=== PATIENT | female | born 1960 | race Caucasian/White ===

== ENCOUNTER 2018-02-02 08:30 | Outpatient (RCR) | payer MEDICARE, MEDICAID, SELFPAY ==
--- NOTE | 2018-01-24 12:22 | IE_ITS ---
Date: January 24, 2018 Referring: SARAH Zuñiga M.D. Diagnosis: generalized aches and pains (hips and legs) SUBJECTIVE: History of Present Illness: Shraddha is a 57 year old female referred for an evaluation and treatment planning with a diagnosis of hip and leg pain with general aches. She reports having chronic LBP beginning approximately one year ago. She had injections at [facility] the end of December resulting in increasing and LBP with spams through her legs. Per her comments, she states that the injections made her symptoms worse. She was put on Gabapentin to take 2x per day, but she does not feel this has benefitted her. She follows up at [facility] on January 27. Denies having had any recent diagnostics. 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 With regards to her back, she locates the pain to be in the L5/S1 region with radiation into the glute and sacral region. Complains of spasming in the left LE worse than the right. This is throughout the thigh into the toes. She describes this pain as a grabbing, spasm type sensation located in the legs with aching in the low back. Symptoms are best with walking and worse with sitting and static standing. She does ice for symptom reduction/control. Reports episodic buckling in the right knee, but no fall. Current Level of Function: Difficulty with any sitting or standing for more than 15 minutes. Pain with bed transfers and sit to stand transfers. Previous Treatment: [facility]. Underwent L5/S1 facet joint injection via fluoroscopy for epidural steroid. Social: Lives in a 2nd story apartment with elevator access. Once in her apartment she is all on one level. She is disabled. Comorbidities: Ovarian cancer in 1999 with a full hysterectomy, breast cancer in 2009 with a lumpectomy on the right, left TKR in 2006, right TKR in 2008 Falls in the last year: ____ No __x__Yes - How many? __[1]__ - (if over 2, balance SM needs to be completed) Medications: Gabapentin, Vitamin D, Tylenol and Advil for pain with minimal benefit noted. Quality of Life: __x__ Good Standardized Measures: LEFS score: __64%__ OBJECTIVE: Posture: The patient is an obese female with no scoliosis detected. She has adequate lordosis. Mild increase in tone, right glute greater than left. The patient tends to weigher packing a forwardly flexed posture in relaxed stance. Gait: Guarded with decreased stride length and decreased heel strike at initial contact, bilateral LEs. Palpation: Pain elicited with palpation with PA mobs L3 through L5 as well as with sacral decompression. Pain with palpation of bilateral glute medius and right piriformis greater than left. ROM: Lumbar spine AROM into flexion, 12 fingertips to floor with difficulty resuming an upright standing posture, walking her hands up her legs. Extension 10 with pain. Rotation right 50 with complaints of spasming in the left thoracolumbar spine; left 65 with reports of pain in the right thoracolumbar spine. Side bending right 2 1/2 fingertips to lateral knee joint line compared to 1 1/2 left. Hip ROM into internal rotation bilaterally is WNL, external rotation 30 A and 40 AA. Strength: Difficult to assess secondary to pain behaviors. Complains of intensifying pain with resisted hip strength testing for abduction, extension and flexion. Gross strength of the LE is 4/5. She performs a SLR with a 0 lag bilaterally. Hamstrings 4/5. Is able to heel and toe walk. Neuro: Sensation is reportedly intact to light touch throughout bilateral LEs. DTRs are hypo reflexive for bilateral knee jerk and ankle jerk. Myotomes are congruent bilaterally and WFL. Special Tests: (-) dural tension testing with SLR or slump tests. Mildly (+) quadrant compression testing, left greater than right. (-) brenda testing. (- ) scour signs. Treatment: IE: 77255 x1 Therapeutic procedure: 60010 x1 Unattended estim: 77450 x1 Patient Education: HEP consisting of gentle lumbar ROM, single knee to chest, bent knee fall outs, prone on elbows as well as posterior hip stretching. Ended with estim and cryotherapy to the low back while seated x15 minutes. Direct treatment time: 1 hr. from 9:30 til 10:30 A.M. ASSESSMENT: Patient is a 57-year-old female, referred for PT services with the diagnosis of generalized aches and pain in the hips and legs. 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 Examination: (list): See above for functional limitations and impairments. Presentation: Stable and uncomplicated Decision-Making: Low complexity ____ Patient requires skilled PT intervention to remediate the above functional limitations to return to: __x__ Return to full functional mobility Prognosis: __x__ Good __x__ Fair Patient's symptoms are chronic at this stage. Her rate of recovery will be contingent upon her compliancy with her HEP, which I predict to be fair. G-Codes (fill in modifier after appropriate code): Patient's primary functional limitation is in the category of: __[x]__ Changing and maintaining body position: [id number]-[CL] Projected goal: __[x]__ Changing and maintaining body position: [id number]-[CJ] based on the LEFS score STG: __6__ weeks. 1) decrease pain by 25% 2) patient independent in HEP 3) patient able to perform full, active lumbar ROM without pain 4) improve standing and sitting tolerance to greater than or equal to 30 minutes without limitations due to pain LTG: __12__ weeks. 1) patient perform all functional mobility and bed transfers without limitations due to pain 2) decrease symptoms by 75% 3) return to full, painfree functional mobility PLAN: Patient to be seen 2x per week, for 12 weeks, adjusting frequency of visits per patient symptoms and response to treatment. Treatment to include: Manual therapy - 75295 - soft tissue mobs throughout the lumbar paraspinals and glute musculature Therapeutic exercise - 67825 - focus on core stabilization Will also implement general ROM exercises into flexion and extension as tolerable. Will utilize manual therapy skills for stretching of the LEs, particularly the posterior hip, bent knee fall outs and trial of manual distractions via leg pulls as well as continued use of estim w/cryotherapy for pain control. The patient agrees with my POC, and is to be discharged when the above goals have been met. Thank you for this referral. Please do not hesitate to contact me with any questions or concerns regarding this patient's plan of care. Please sign, date and return to our clinic with your approval.................................. cc: SARAH Zuñiga
--- NOTE | 2018-01-28 08:53 | NT_ITS ---
Shraddha Hopefaviantommie shows up at [facility] this morning stating she just does not feel right. She decided to cancel her appointment. [employer]
--- NOTE | 2018-01-31 08:30 | PTTR_ITS ---
DATE: 01/31/18 SUBJECTIVE: Shraddha states that she saw Dr. Rodriguez at the pain clinic and discussed some internal tens unit procedure. She is being referred to the spine clinic at [place] in mid February. Continues to complain of L sided low back, SI, buttock and back pain. OBJECTIVE: Seen for re-view of HEP. Manual therapy: (39247m1). Manual distraction via leg pulls on L followed by PA mobilizations grade 3 to L2 to L5-S1, rotational mobilizations segmentally both L and R. The received soft tissue mobilization by Niharika Wright PTA ( see her note for specifics) Therapeutic procedures (92446p4). Bent knee fall out, single knee to chest, prone on elbows and TA activation which she was able to elicit, but not able to hold for more than 15-20 seconds. Direct treatment time: 30 mins Total treatment time: 30 mins A: patient tolerated manual therapy well. Do question some SI involvement, mildly limited with her IR on L when tested in prone compared to the R. P:Continue as above, further screen SI joint next visit. MM/dl
--- NOTE | 2018-01-31 11:32 | PTTR_ITS ---
DATE: 01/31/18 Co treatment with Andrea Avendaño DPT: OBJECTIVE: Manual therapy: (66189w5). STM t/o low back and buttock with focus on the left. PRT's of glut medius and piriformis. CFM over left sacral border and pelvic brim. Myofascial stretching t /o entire pelvic brim region. * x Electrical Stim Unattended - 97711m9: ended with IFC and cryo to left SI region x 15 min. Direct treatment time: 20 min Total treatment time: 35 min
--- NOTE | 2018-02-02 08:30 | PTTR_ITS ---
DATE: SUBJECTIVE: Shraddha states that she feels as though the soft tissue mobilization helped last visit. Is having mild reduction in intensity of pain since last visit. Is noticing improvements with sit to stand transfer. Is second guessing the internal tens implants. Manual therapy: (67243p2). Lumbopelvic mobilization consisting of single/ double knee to chest, bent knee fall outs, manual distraction via leg pulls followed by piriformis stretching bilaterally. Then incorporated some PA mobilizations to lumbar spine grade 3 followed by sacral decompression. She then received soft tissue mobilization by Niharika Wright PTA (see her note for specifics) Direct treatment time: 30 mins Total treatment time: 30 mins P: Continue as above and implement some core stabilization next visit. MM/dl
--- NOTE | 2018-02-02 13:34 | PTTR_ITS ---
DATE: 02/02/18 Co treatment with Andrea Avendaño DPT: OBJECTIVE: Manual therapy: (94905d5). STM t/o low back and buttock area with focus on the left. PRT's of glut medius and piriformis as well as left iliocostalis lumborum. CFM over lumbar spine, pelvic brim and bilateral sacral borders. * x Electrical Stim Unattended - 20671d1: ended with IFC and cryo to left sided low back x 15 min. Direct treatment time: 20 min Total treatment time: 35 min
== END 2018-02-04 23:59 | disposition home or self-care (01) ==
LOC: PT 08:30
PROVIDERS: PCP Nurse Practitioner Family; Referring Provider Nurse Practitioner Family; Visit Provider Nurse Practitioner Family
DX: M25.551 Pain in right hip (principal); M25.552 Pain in left hip; M79.651 Pain in right thigh; M79.652 Pain in left thigh; M51.36 Other intervertebral disc degeneration, lumbar region
CPT/HCPCS: 97014; 97110; 97140; 97161

== ENCOUNTER 2018-02-14 15:26 | Outpatient (REF) | payer MEDICARE, MEDICAID, SELFPAY ==
[2018-02-14 19:36] LABS: ALT 33 U/L (12-78); AST 28 U/L (15-37); Albumin 3.4 g/dL (3.4-5.0); Alkaline Phosphatase 62 U/L (46-116); Anion Gap 10.5 mmol/L (3-11); BUN 14 mg/dL (7-18); Bilirubin, Total 0.3 mg/dL (0.2-1.0); CO2 26.5 mmol/L (21.0-32.0); CREATININE 0.98 mg/dL (0.55-1.02); Calcium 8.7 mg/dL (8.5-10.1); Chloride 105 mmol/L (98-107); Estimated GFR 58.09 (mL/min/1.73m2); Glucose 90 mg/dL (70-100); Magnesium 1.9 mg/dL (1.8-2.4); Potassium 4.1 mmol/L (3.5-5.1); Sodium 142 mmol/L (136-145); Total Protein 6.5 g/dL (6.4-8.2)
== END 2018-02-14 15:46 ==
LOC: NCHCN 15:26
PROVIDERS: PCP Nurse Practitioner Family; Visit Provider Nurse Practitioner Family
DX: R52 Pain, unspecified (principal); M62.838 Other muscle spasm
CPT/HCPCS: 80053; 83735

== ENCOUNTER 2018-02-22 00:33 | Outpatient (CLI) | payer MEDICARE, MEDICAID, SELFPAY ==
--- NOTE | 2018-02-22 08:50 | DI.MRI_ITS ---
SYMPTOM/DIAGNOSIS: PAIN L5 LT RADICULAR, M54.16, RADICULOPATHY LUMBAR SPINE MRI: The study was conducted according to the usual protocol. Sagittal T 1 and T 2 and sagittal T 1 STIR and axial T 1 and axial T 2 and axial T 2 MSMA and T 1 coronal pulse sequences were performed. The examination is compared with a prior study of 07/13/15. The bony signal is unremarkable. At T 12-L 1, the disc is normal. There is no spinal stenosis. At L 1-2, the disc is normal. There is no evidence of spinal stenosis. At L 2-3, diminished disc signal would be consistent with desiccation. There is mild retrolisthesis and an annular disc bulge. There is mild foraminal narrowing bilaterally, left greater than right, unchanged. At L 3-4, there is disc desiccation and a mild disc bulge. Facet joint arthropathy is identified. There is mild canal stenosis. There is no evidence of significant foraminal stenosis. At L 4-5, a pseudospondylolisthesis is demonstrated. There is diminished disc signal and mild loss of disc height. Facet joint arthropathy is identified. There is mild left and mild to moderate right foraminal stenosis without appreciable interval change when compared with the prior examination. At L 5-S 1, again noted is a mild central disc protrusion. There is severe left neural foraminal narrowing and mild right foraminal narrowing, unchanged. Severe facet joint DJD is again identified. SUMMARY: There has been little interval change in the status of the lumbar spine with note again made of degenerative disc disease and DJD. There is severe left sided L 5-S 1 foraminal narrowing, not significantly changed when compared with the prior examination.
== END 2018-02-22 00:53 ==
PROVIDERS: PCP Nurse Practitioner Family; Visit Provider Anesthesiology Pain Medicine
DX: M51.17 Intervertebral disc disorders with radiculopathy, lumbosacral region (principal); M54.16 Radiculopathy, lumbar region
CPT/HCPCS: 72148

== ENCOUNTER 2018-04-01 08:09 | Emergency (ER) | payer MEDICARE, MEDICAID, SELFPAY ==
[2018-04-01 08:14] VITALS: BP 140/83; PULSE 70; RESP 18; TEMP 36.5; O2SAT 97
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
[2018-04-01] MEDS: Ondansetron O.D.T. 4 MG TABEF PO (09:14)
[2018-04-01 09:28] VITALS: BP 135/63; PULSE 84; RESP 16; TEMP 36.5; O2SAT 97
== END 2018-04-01 09:34 | disposition home or self-care (01) ==
PROVIDERS: Emergency Provider Emergency Medicine; PCP Nurse Practitioner Family
DX: R11.2 Nausea with vomiting, unspecified (principal); R19.7 Diarrhea, unspecified; T36.4X5A Adverse effect of tetracyclines, initial encounter
CPT/HCPCS: 80048; 99283; 85025; J1885; J2405

== ENCOUNTER 2018-05-29 11:50 | Emergency (ER) | payer MEDICARE, MEDICAID, SELFPAY ==
[2018-05-29 11:55] VITALS: BP 144/79; PULSE 85; RESP 14; TEMP 36.5; O2SAT 96
--- NOTE | 2018-05-29 12:31 | W.ED.GENAD ---
Discharge Plan Disposition Patient Disposition: HOME Condition: Good Discharge Details Chief Complaint: RashLesion Clinical Impression: Rash and nonspecific skin eruption Primary Care Provider: Noris Tuttle ED Provider: Jaswinder Sesay Home Meds and New Rx's Prescriptions: No Action ProAir HFA 8.5 GM HFA aerosol inhaler 2 puff Inhalation ONCE PRNRF: 0 tamoxifen 20 MG tablet 20 mg PO DAILY RF: 0 Dexilant 60 MG capsule,biphase delayed releas 60 mg PO DAILY RF: 0 magnesium oxide 400 MG tablet 400 mg PO DAILY RF: 0 Cholecalciferol (Vitamin D3) [Vitamin D3] 2,000 UNIT Tab.Chew 2,000 unit PO DAILY RF: 0 ondansetron 4 MG tablet,disintegrating 4 mg Sublingual Q6H PRNQty: 12 RF: 0 fexofenadine 180 MG tablet 180 mg PO DAILY RF: 0 vitamin B complex 1 EACH capsule 1 ea PO DAILY RF: 0 Discharge Instructions Instructions: Acute Rash (ED) Additional Instructions: Please apply the triple antibiotic ointment to your foot as directed. Please keep the area bandaged if you notice any worsening of your symptoms, or any new symptoms such as spreading of the redness, vomiting, diarrhea, fever, chills, shortness of breath, chest pain, numbness, weakness, or fainting , please return immediately to the emergency department for reevaluation. Please follow up with your primary care provider as soon as possible for reassessment and reevaluation. As always, it was a pleasure participating in your medical care today. Referrals: Noris Tuttle [Primary Care Provider] - Medical Decision Making This is a pleasant 58-year-old female who presents with evaluation for rash over her arch of her right foot. He has been present for the last week. Therefore blisters all at various stages. Physical exam did show a small amount of purulence underneath 1 of the blisters. It was D removed, and these were sent for culture. No evidence of surrounding redness, erythema, or fluctuance from an abscess on bedside ultrasound. Physical exam shows no other abnormalities. Findings may represent a very mild viral exanthem, shingles on the differential but unlikely secondary to the location, distribution, various stages, and atypical appearance. I imagine her symptoms came from some type of contact dermatitis. With no signs of systemic symptoms, no other spreading of the rash, no red flags of redness, erythema, fever or chills, negative Nikolsky sign no other significant abnormalities I feel she can be safely discharged home. We will send the fluid for culture. With no evidence of cellulitis or abscess I do not think that oral antibiotics are indicated. Will recommend continue application of triple antibiotic ointment and bandaging, and close follow-up with PCP. We discussed red flags which return the patient understands. I have extensively reviewed the treatment plan and discharge instructions with the patient. I have addressed all patient concerns at this time. The patient was made aware of what symptoms to monitor for that would warrant a return to the emergency department. Discussed the plan with the patient, they demonstrate verbal understanding and agreement with our assessment and plan at this time. HPI General Date/Time Provider Initiated Documentation: 05/29/18 12:00. HPI Narrative: This is a 58-year-old female with no significant past medical history who presents today for evaluation of rash on the right foot. Patient states that for the last week she has had noted small blisters on the arch of her right foot. They have come in various stages, will then rupture, and exuded a small amount of purulent material. There is some that are well-healing, and some that are just starting up. Therefore blisters in total. They are very small, they have associated itchiness. No associated redness, pain or swelling. She denies any pain in the foot with movement. She denies any systemic symptoms of fever or chills. She denies any recent exposures to animals oils dander or plans. Past medical history is positive for breast cancer. No other complaints at this time. No history of IV or illicit drug use. No modifying or relieving factors. She has been wiping alcohol on them nightly, this is not changed much Related Data Home Medications Medication Instructions Recorded Confirmed tamoxifen 20 mg PO DAILY 12/02/12 05/29/18 Dexilant 60 mg PO DAILY 09/06/13 05/29/18 magnesium oxide 400 mg PO DAILY 03/12/17 05/29/18 Cholecalciferol (Vitamin D3) 2,000 unit PO DAILY 07/24/17 05/29/18 [Vitamin D3] ondansetron 4 mg SUBLINGUAL Q6H PRN #12 tabef 08/13/17 05/29/18 fexofenadine 180 mg PO DAILY 08/28/17 05/29/18 vitamin B complex 1 ea PO DAILY 08/28/17 05/29/18 ProAir HFA 2 puff INHALATION ONCE PRN inhaler 11/19/17 05/29/18 Previous Rx's Medication Instructions Recorded ondansetron 4 mg SUBLINGUAL Q6H PRN #12 tabef 08/13/17 Allergies Allergy/AdvReac Type Severity Reaction Status Date / Time lidocaine Allergy Severe Anaphylaxsi Unverified 05/29/18 11:58 s Sulfa (Sulfonamide Allergy Intermediate Skin Rash Unverified 05/29/18 11:58 Antibiotics) latex Allergy Mild Hives Unverified 05/29/18 11:58 influenza virus vaccine, Allergy Unknown Unverified 05/29/18 11:58 specific [Influenza Virus Vacc,Specific] NSAIDS (Non-Steroidal Allergy Unknown Skin Rash Unverified 05/29/18 11:58 Anti-Inflamma cat dander Allergy Unverified 05/29/18 11:58 dog dander Allergy Unverified 05/29/18 11:58 codeine AdvReac Unverified 05/29/18 11:58 etodolac AdvReac Unverified 05/29/18 11:58 meloxicam AdvReac Unverified 05/29/18 11:58 morphine AdvReac Unverified 05/29/18 11:58 promethazine HCl AdvReac Unverified 05/29/18 11:58 [From Phenergan] tramadol AdvReac Unverified 05/29/18 11:58 General Stated Complaint: RashLesion NYA: 5 Review of Systems Review of Systems All systems reviewed & are unremarkable except as noted in HPI and below PFSH Social History Smoking/Tobacco Use Status: Current every day Exam Narrative Exam Narrative: 1.Const: Well-nourished, Well-developed, appearing stated age 2.Eyes: PERRL, no conjunctival injection, and symmetrical lids. 3.ENT: Atraumatic external nose and ears. Moist MM. Neck: Symmetric, trachea midline, No thyromegaly. 4.CVS: +S1/S2, No murmurs or gallops. Peripheral pulses 2+ and equal in all extremities. Brisk capillary refill in all extremities. 5.RESP: Unlabored respiratory effort. Clear to auscultation bilaterally. No wheezes rales or rhonchi 6.GI: Soft, Nontender/Nondistended, No hepatosplenomegaly. No guarding or rebound. 7.MSK: Normocephalic/Atraumatic, Extremities w/o deformity or ttp No cyanosis or clubbing, Normal movement of all extremities 8.Skin: Warm, Dry. 4 small vesicles in various stages on the bottom of her foot by the arch. Bedside ultrasound shows no fluctuance or signs of abscess. One vesicle is a small amount of purulent fluid inside. This was lysed, and a small amount was exuded. No surrounding erythema. Vesicles are roughly 3 mm in diameter. No evidence of significant pain, negative Nikolsky sign. No other lesions are present. 9.Neuro: implementation engineer II-XII grossly intact. Sensation grossly intact, no focal neurologic deficits. 10.Psych: (AAO) x3. Appropriate mood and affect Course Vital Signs Temperature 36.5 C 05/29/18 11:55 Pulse 85 05/29/18 11:55 Respiratory Rate 14 05/29/18 11:55 Blood Pressure 144/79 H 05/29/18 11:55 Pulse Oximetry 96 05/29/18 11:55 Temperature 36.5 C 05/29/18 11:55 Temperature Source Temporal Artery Scan 05/29/18 11:55 Pulse 85 05/29/18 11:55 Respiratory Rate 14 05/29/18 11:55 Respiratory Effort Non-Labored 05/29/18 11:57 Blood Pressure 144/79 H 05/29/18 11:55 Blood Pressure Position Sitting 05/29/18 11:55 Pulse Oximetry 96 05/29/18 11:55 Pain Level 2 05/29/18 11:55
== END 2018-05-29 12:37 | disposition home or self-care (01) ==
PROVIDERS: Emergency Provider Student in an Organized Health Care Education/Training Program; PCP Nurse Practitioner Family
DX: S90.821A Blister (nonthermal), right foot, initial encounter (principal); X58.XXXA Exposure to other specified factors, initial encounter
CPT/HCPCS: 10160; 87070; 87205

== ENCOUNTER 2018-07-08 00:19 | Outpatient (CLI) | payer MEDICARE, MEDICAID, SELFPAY ==
--- NOTE | 2018-07-08 09:47 | DI.MRI_ITS ---
SYMPTOM/DIAGNOSIS: PREOP SPINAL CORD STIMULATOR, LT LUMBAR RADICUITIS M54.16 THORACIC SPINE MRI: 07/08/18 MRI examination of the thoracic spine was performed according to the usual protocol. No significant bony signal abnormality seen. Note is made of an apparent disc herniation at the T 8-9 level which projects centrally and to the left of midline and causes mild deformity of the anterior cord surface on the left at this level. No intra cord signal abnormality seen. No disc herniation identified elsewhere. The bony spinal canal and neural foramina appear intact. 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 Please correlate clinically.
== END 2018-07-08 00:39 ==
PROVIDERS: PCP Nurse Practitioner Family; Visit Provider Anesthesiology Pain Medicine
DX: M54.16 Radiculopathy, lumbar region (principal); M51.14 Intervertebral disc disorders with radiculopathy, thoracic region
CPT/HCPCS: 72146

== ENCOUNTER 2018-07-25 13:02 | Outpatient (REF) | payer MEDICARE, MEDICAID, SELFPAY ==
[2018-07-25 13:36] LABS: ALT 47 U/L (12-78); AST 38 U/L (15-37); Albumin 3.6 g/dL (3.4-5.0); Alkaline Phosphatase 63 U/L (46-116); Anion Gap 10.4 mmol/L (3-11); BUN 15 mg/dL (7-18); Bilirubin, Total 0.4 mg/dL (0.2-1.0); CO2 27.6 mmol/L (21.0-32.0); CREATININE 1.02 mg/dL (0.55-1.02); Calcium 8.8 mg/dL (8.5-10.1); Chloride 100 mmol/L (98-107); Cholesterol 186 mg/dL (50-200); Estimated GFR 55.47 (mL/min/1.73m2); Glucose 87 mg/dL (70-100); HDL Cholesterol 37 mg/dL (40-60); LDL CHOLESTEROL 121 mg/dL (<100); Potassium 3.9 mmol/L (3.5-5.1); Sodium 138 mmol/L (136-145); Total Protein 7.1 g/dL (6.4-8.2); Triglyceride 157 mg/dL (30-150)
== END 2018-07-25 13:22 ==
LOC: NCHCN 13:02
PROVIDERS: PCP Nurse Practitioner Family; Visit Provider Nurse Practitioner Family
DX: Z13.6 Encounter for screening for cardiovascular disorders (principal); E78.89 Other lipoprotein metabolism disorders
CPT/HCPCS: 80053; 80061; 83721

== ENCOUNTER 2018-08-10 08:41 | Outpatient (CLI) | payer MEDICARE, MEDICAID, SELFPAY ==
[2018-08-10 09:18] LABS: CREATININE 0.98 mg/dL (0.55-1.02); Estimated GFR 58.09 (mL/min/1.73m2)
== END 2018-08-10 09:01 ==
PROVIDERS: PCP Nurse Practitioner Family; Visit Provider Nurse Practitioner
DX: Q27.30 Arteriovenous malformation, site unspecified (principal)
CPT/HCPCS: 36415; 82565

== ENCOUNTER 2018-08-12 00:30 | Outpatient (CLI) | payer MEDICARE, MEDICAID, SELFPAY ==
[2018-08-12] MEDS: Gadoterate meglumine 20 ML VIAL 19 ML IVP (09:36)
--- NOTE | 2018-08-12 09:45 | DI.MRI_ITS ---
SYMPTOMS/DIAGNOSIS: PT WITH AVM, TREATED WITH RADIATION THERAPY, ASSESS FOR PROGRESSION, Q27.30 MRI OF THE BRAIN: Pre and post contrast MRI of the brain was performed. Comparison examination 11/17/16 and 11/17/17. There has been no change in size or appearance of the enhancing lesion in the medial aspect of the left temporal lobe. This has been stable compared to the prior examinations. No new abnormal areas of enhancement are seen. There are areas of hyperintensity in the white on the T 2 and FLAIR images involving the medial left temporal lobe, floor of the left frontal lobe and the left insula. These areas are unchanged compared to the prior examination. The diffusion weighted images show no evidence of an acute infarct. No acute midline shift or mass effect is identified. There is mucosal thickening in the left maxillary sinus. No fluid levels are seen. IMPRESSION: Stable areas of enhancement and white matter hyperintensity involving the left frontal and temporal lobes as described above.
== END 2018-08-12 00:50 ==
PROVIDERS: PCP Nurse Practitioner Family; Visit Provider Nurse Practitioner
DX: Q27.30 Arteriovenous malformation, site unspecified (principal); Z92.3 Personal history of irradiation
CPT/HCPCS: 70553

== ENCOUNTER 2018-10-11 09:07 | Emergency (ER) | payer MEDICARE, MEDICAID, SELFPAY ==
[2018-10-11 09:12] VITALS: BP 128/75; PULSE 87; RESP 12; TEMP 37.2; O2SAT 95
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
[2018-10-11 10:34] VITALS: BP 128/75; PULSE 87; RESP 12; TEMP 37.2; O2SAT 95
== END 2018-10-11 10:35 | disposition home or self-care (01) ==
PROVIDERS: Emergency Provider Physician Assistant; PCP Nurse Practitioner
DX: S91.121A Laceration with foreign body of right great toe without damage to nail, initial encounter (principal); W22.8XXA Striking against or struck by other objects, initial encounter
CPT/HCPCS: 99282

== ENCOUNTER 2018-11-17 08:54 | Emergency (ER) | payer MEDICARE, MEDICAID, SELFPAY ==
[2018-11-17 08:56] VITALS: BP 133/80; PULSE 74; RESP 16; TEMP 36.7; O2SAT 98
--- NOTE | 2018-11-17 09:10 | DI.RAD_ITS ---
SYMPTOM/DIAGNOSIS: LATERAL RT ELBOW AND SHOULDER PAIN AFTER FALL RIGHT SHOULDER: There is no evidence of a fracture or dislocation.
--- NOTE | 2018-11-17 09:10 | DI.RAD_ITS ---
SYMPTOM/DIAGNOSIS: ELBOW PAIN RIGHT ELBOW: There is no evidence of a fracture or dislocation.
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
[2018-11-17] MEDS: Ketorolac 30 MG/ML VIAL IM (10:07)
== END 2018-11-17 10:16 | disposition home or self-care (01) ==
PROVIDERS: Emergency Provider Emergency Medicine; PCP Nurse Practitioner
DX: M25.512 Pain in left shoulder (principal); M25.522 Pain in left elbow; V28.0XXA Motorcycle driver injured in noncollision transport accident in nontraffic accident, initial encounter
CPT/HCPCS: 96372; 99284; 73030; 73080; J1885; L3650

== ENCOUNTER → 2018-11-30 09:25 | Outpatient (BNVA) | payer MEDICARE, MEDICAID, SELFPAY | PROVIDERS: PCP Nurse Practitioner; Referring Provider Nurse Practitioner; Visit Provider Student in an Organized Health Care Education/Training Program | DX: S49.91XA Unspecified injury of right shoulder and upper arm, initial encounter (principal); M25.511 Pain in right shoulder; V28.0XXA Motorcycle driver injured in noncollision transport accident in nontraffic accident, initial encounter; W22.8XXA Striking against or struck by other objects, initial encounter | CPT/HCPCS: 99203; 99214 ==

== ENCOUNTER 2018-12-06 00:48 | Outpatient (CLI) | payer MEDICARE, MEDICAID, SELFPAY ==
--- NOTE | 2018-12-06 08:47 | DI.MRI_ITS ---
SYMPTOM/DIAGNOSIS: RIGHT SHOULDER PAIN FOLLOWING INJURY MRI RIGHT SHOULDER: Comparison is made with plain films dated 17 November 2018. Proton density and FS T2 axial and coronal and T-1 and FS T2 sagittal sequences were performed. There are degenerative changes of the AC joint which appears to impinge on the distal supraspinatus tendon junction. There is a small amount of fluid in the subacromial subdeltoid bursa. There is a thinning of the supraspinatus tendon distally with an apparent articular sided tear. There is no significant supraspinatus muscle atrophy or evidence of fatty infiltration. The infraspinatus, teres minor and biceps tendons appear intact. There is also an apparent tear of the subscapularis tendon with some retraction. There are degenerative changes in the anterior inferior glenoid. There is no gross evidence of a labral tear. IMPRESSION: 1. Supraspinatus articular sided partial tear. 2. Subscapularis tear with mild retraction.
== END 2018-12-06 01:08 ==
PROVIDERS: PCP Nurse Practitioner; Visit Provider Student in an Organized Health Care Education/Training Program
DX: S49.91XA Unspecified injury of right shoulder and upper arm, initial encounter (principal); M25.511 Pain in right shoulder; M75.111 Incomplete rotator cuff tear or rupture of right shoulder, not specified as traumatic
CPT/HCPCS: 73221

== ENCOUNTER → 2018-12-12 13:26 | Outpatient (BNVA) | payer MEDICARE, MEDICAID, SELFPAY | PROVIDERS: PCP Nurse Practitioner; Referring Provider Nurse Practitioner; Visit Provider Student in an Organized Health Care Education/Training Program | DX: Z98.890 Other specified postprocedural states (principal); S46.011A Strain of muscle(s) and tendon(s) of the rotator cuff of right shoulder, initial encounter; X58.XXXA Exposure to other specified factors, initial encounter; R25.2 Cramp and spasm | CPT/HCPCS: 99213 ==

== ENCOUNTER 2019-01-09 00:36 | Outpatient (CLI) | payer MEDICARE, MEDICAID, SELFPAY ==
--- NOTE | 2019-01-09 14:14 | DI.MAMMO_ITS ---
SYMPTOM/DIAGNOSIS: SCREENING, PERSONAL H/O BREAST CA, Z85.3, Z12.31, PREVENT[facility]ARE, Z00.00 MAMMOGRAMS: Mammograms were interpreted according to the usual protocol including computer analysis with CAD system, tomosynthesis and C view imaging. Comparison is made with exams from [id number]. The breasts are composed of fatty density tissue, breast density, Category A. No suspicious masses or suspicious microcalcifications are seen. There is minimal scarring in the posterior right breast related to prior lumpectomy. IMPRESSION: Category 1, negative mammogram. Yearly screening mammography is recommended. [facility] ASSESSMENT OF FINDINGS: Negative. Category 1. Patient will receive a letter notifying them of these results. BI-RAD category A. The breasts are almost entirely fatty.
== END 2019-01-09 00:56 ==
PROVIDERS: PCP Nurse Practitioner; Visit Provider Internal Medicine
DX: Z85.3 Personal history of malignant neoplasm of breast (principal); Z12.31 Encounter for screening mammogram for malignant neoplasm of breast; Z98.890 Other specified postprocedural states
CPT/HCPCS: 77063; 77067

== ENCOUNTER 2019-01-10 08:50 | Day surgery (SDC) | payer MEDICARE, MEDICAID, SELFPAY ==
[2019-01-10] VITALS (10 sets, daily range): BP systolic 94–129; BP diastolic 60–72; PULSE 69–84; RESP 12–22; TEMP 36.4–37.1; O2SAT 94–100
--- NOTE | 2019-01-10 07:23 | HPE_ITS ---
Date of service: 01/10/19 Time of Service: 09:23 Assessment and Plan (1) Traumatic tear of right rotator cuff: Current visit: No Status: Acute Shraddha is a 58-year-old with a traumatic rotator cuff tear of the right shoulder. She is a complete subscapularis rupture as well as a high-grade partial articular sided supraspinatus tear and subluxation of biceps tendon. She also has some traumatic ulnar neuritis which we will treat conservatively at this time. Given the traumatic nature of the rotator cuff tear and her significant dysfunction and pain, I offered surgical fixation. I reviewed the risk of the procedure to include bleeding, infection, pain, stiffness, re-tear, weakness, need for repeat procedures, hardware failure, or prominence, damage to nerves and vessels, blood clot. Despite these risk, she elects to proceed. Qualifiers: Encounter type: subsequent encounter Rotator cuff tear extent: complete Qualified Code(s): S46.011D - Strain of muscle(s) and tendon(s) of the rotator cuff of right shoulder, subsequent encounter History of Present Illness Chief Complaint: Right shoulder pain and weakness Narrative: Shraddha is a 58-year-old who suffered a fall at the beginning of November. She landed awkwardly onto the right arm with hyperabduction force. She had persistent pain and weakness. MRI confirmed a tear of the subscapularis tendon and a high-grade partial articular sided tear of the supraspinatus tendon and involvement of the biceps tendon. She tried initial course of conservative treatment but was unable to tolerate them due to pain. She also complains of numbness and tingling within the little finger but this is seeming to improve. She underwent nerve conduction studies which did show mild ulnar nerve entrapment at the level of the elbow as well as moderate carpal tunnel syndrome. No brachial plexopathy or radiculopathy was identified without examination. [facility] Social History Smoking/Tobacco Use Status: Current every day Tobacco Type: cigarettes Smoking cigarettes per day: 10 Years smoked: 40 Drug use: Never Substance use type: does not use Do you feel safe at home: Yes Additional Social history: states she lives alone Meds Home Medications Medication Instructions Recorded Confirmed Type tamoxifen 20 mg PO DAILY 12/02/12 01/10/19 History Dexilant 60 mg PO DAILY 09/06/13 01/10/19 History magnesium oxide 400 mg PO DAILY 03/12/17 01/10/19 History Cholecalciferol (Vitamin D3) 2,000 unit PO DAILY 07/24/17 01/10/19 History [Vitamin D3] fexofenadine 180 mg PO DAILY 08/28/17 01/10/19 History vitamin B complex 1 ea PO DAILY 08/28/17 01/10/19 History albuterol sulfate [ProAir HFA] 2 puff INHALATION PRN PRN inhaler 11/19/17 01/10/19 History cyclobenzaprine 5 mg tablet 5 mg PO TID PRN #12 tab 12/12/18 01/05/19 Rx Allergies Allergy/AdvReac Type Severity Reaction Status Date / Time Sulfa (Sulfonamide Allergy Intermediate Skin Rash Unverified 01/05/19 14:14 Antibiotics) latex Allergy Mild Hives Unverified 01/05/19 14:14 influenza virus vaccine, Allergy Unknown Unverified 01/05/19 14:14 specific [Influenza Virus Vacc,Specific] NSAIDS (Non-Steroidal Allergy Unknown Skin Rash Unverified 01/05/19 14:14 Anti-Inflamma cat dander Allergy Unverified 01/05/19 14:14 dog dander Allergy Unverified 01/05/19 14:14 codeine AdvReac Nausea, Unverified 01/10/19 09:07 vomiting, hives etodolac AdvReac Unverified 01/05/19 14:14 meloxicam AdvReac Unverified 01/05/19 14:14 morphine AdvReac nausea, Unverified 01/10/19 09:07 vomiting, hives promethazine HCl AdvReac Unverified 01/05/19 14:14 [From Phenergan] tramadol AdvReac Upset Unverified 01/10/19 09:07 stomach Exam Const General: cooperative, healthy appearing, comfortable and no acute distress Nutritional Appearance: average body habitus Orientation: alert, awake and oriented x3 Resp Auscultation: clear to auscultation bilaterally Cardio Rate: regular rate Rhythm: regular rhythm Extrem Other: Right shoulder is without overlying skin changes. There is some mild swelling. There is pain to palpation especially anteriorly. Range of motion was not tested given patient's discomfort. Sensation intact light touch of the axillary nerve. There is some tenderness over the ulnar nerve the level of the elbow with a positive Tinel's. Decreased sensation in the ulnar distribution level of the hand. Hyperflexion of the elbow only mildly worsens the symptoms. Finger abduction appears to be stronger.
--- NOTE | 2019-01-10 10:02 | W.PM.DSUDISC ---
Discharge Plan Disposition Patient Disposition: HOME Condition: Good Discharge Details Reason For Visit: Right rotator cuff tear Attending Provider: Maurilio Torres Primary Care Provider: Zenaida Gupta Home Meds and New Rx's Prescriptions: New acetaminophen 500 mg tablet 500 mg PO Q6H PRN (Reason: pain) Qty: 60 RF: 0 ibuprofen 600 mg tablet 600 mg PO TID PRN (Reason: pain) Qty: 60 RF: 0 oxycodone 5 mg tablet 5 mg PO Q6H PRN (Reason: severe post-operative pain) Qty: 12 RF: 0 Continued cyclobenzaprine 5 mg tablet 5 mg PO TID PRN (Reason: muscle spasm) Qty: 12 RF: 0 albuterol sulfate [ProAir HFA] 8.5 GM HFA aerosol inhaler 2 puff Inhalation PRN PRNRF: 0 tamoxifen 20 MG tablet 20 mg PO DAILY RF: 0 Dexilant 60 MG capsule,biphase delayed releas 60 mg PO DAILY RF: 0 magnesium oxide 400 MG tablet 400 mg PO DAILY RF: 0 Cholecalciferol (Vitamin D3) [Vitamin D3] 2,000 UNIT Tab.Chew 2,000 unit PO DAILY RF: 0 fexofenadine 180 MG tablet 180 mg PO DAILY RF: 0 vitamin B complex 1 EACH capsule 1 ea PO DAILY RF: 0 Discharge Instructions Stand Alone Forms: [facility] [place] Equipment/Supplies: Brace and Bolster Pillow Remove Dressings/Wound Care:: 72 hours Shower/Bathe:: Cover Diet:: As Tolerated Discharge Orders Discharge Orders: Discharge Order (Routine); Ordered 01/10/19 Ordered By: Michelle Amezquita DS: Diagnosis Discharge Diagnosis (1) Traumatic tear of right rotator cuff: Status: Acute
[2019-01-10] MEDS: Lactated Ringers 1,000 ML 80 ML IV (10:20)
[2019-01-10] MEDS: ceFAZolin 2 GM/50 ML BAG IVPB (11:08)
[2019-01-10] MEDS: fentaNYL 100 MCG/2 ML VIAL IVP (13:22)
[2019-01-10] MEDS: Bupivacaine 0.5% Pres-Free 30 ML VIAL (17:00)
[2019-01-10] MEDS: Bupivacaine LIPOSOME/PF 133 MG/10 ML VIAL IJ (17:00)
--- NOTE | 2019-01-10 22:17 | W.PM.OP ---
Date of service: 01/10/19 Time of Service: 13:17 Operative Note DATE OF PROCEDURE: 01/10/19 PRE-OP DIAGNOSIS: Right rotator cuff tear POST-OP DIAGNOSIS: same PROCEDURE: - Arthroscopic Rotator Cuff Repair - Extensive debridement of anterior and posterior glenohumeral joint and rotator cuff - Subacromial Debridement with Acromioplasty SURGEON: Maurilio Torres DEVELOPMENT WRITER: Michelle Amezquita ANESTHESIA: GETA and regional ESTIMATED BLOOD LOSS: 0 PATHOLOGY: none sent COMPLICATIONS: None Patient was transported to: PACU Patient's condition: stable Indications: I have seen Shraddha in clinic for a painful shoulder. Pathology was confirmed based on MRI and exam findings. Nonoperative measures were exhausted but disability and pain persisted. I discussed shoulder arthroscopy and procedures. I reviewed the risks of the procedures to include, but not limited to, bleeding, infection, pain, stiffness, damage to nerves or vessels, recurrence, hardware failure, blood clot. Despite these risks, the patient elected to proceed. Findings: A diagnostic arthroscopy was performed with the following findings: - Glenohumeral Joint: No significant arthritic changes were seen - Labrum: Fraying of the anterior and superior labrum, from 11-2 - Cuff: Near complete tear of the upper subscapularis tendon and near complete tear of the supraspinatus - Biceps: Fraying and inflammatory change at the level of the groove. - Subacromial: No significant bursal inflammation, Some tearing at the level of the articular sided tear which was taken down, some spurring of the anterior acromion Procedure Description: Shraddha was greeted in the preoperative holding area where the correct side was identified and marked. The consent was reviewed with the patient and signed. The history and physical was updated. All questions were answered. Shraddha was taken back to the PACU for administration of an intrascalene nerve block. She was then taken to the operating room. The patient was placed into the supine position on the operating room table. A general anesthetic was administered. Shraddha was then positioned in the beach chair position. All bony prominences were well padded. The head was placed in a foam head sawyer automatic in a neutral position. Prophylactic antibiotics in the form of Cefazolin were administered. The right arm/shoulder was then prepped with Chloraprep and draped in a standard fashion with stockinette and shoulder drape. A timeout to confirm correct identity, side and site, procedure, allergies, anesthesia, and medical concerns was performed. The arm was placed into a pneumatic ledesma, [id number]. The shoulder arthroscopy was then performed. The glenohumeral joint was injected with 20 cc of normal saline with good flow back. A standard posterior portal was made and the joint was entered atraumatically with a blunt arthroscope. Once inside we had good visualization of the structures of the glenohumeral joint. An anterior portal was established with spinal needle localization. A 6.5 mm cannula was inserted. A probe was then used to perform a diagnostic arthroscopy. There is noted to be no significant cartilage damage of the glenoid humeral joint. The labrum was intact but there was fraying and some redundency superiorly from 11-2. There were no loose bodies in the inferior pouch. The superior rotator cuff was but there was notable articular sided tearing of at least 8mm in depth and 1cm in width; this was marked with a PDS suture after debridement of the diseased tissue. The biceps tendon showed fraying and inflammatory change at the level of the groove. This was released. The subscapularis torn. The uppermost fibers were pulled away from the lesser tuberosity. From the anterior portal I then debrided the lesser tuberosity and the remnant fibers. A single Mitek Healix 4.5 mm anchor was inserted without difficulty. Using a retrograde suture passer, espresso, I inserted 2 horizontal mattress sutures into the sub-scapulars tendon. These had excellent purchase and very nicely reapproximate the tendon nonetheless tuberosity. There were tied with standard arthroscopic knot tying techniques. The arthroscope was then inserted into the subacromial space. The 6.5 mm cannula was placed lateral to the CA ligament. A complete bursectomy is performed anteriorly, posteriorly, and laterally with electrocautery and shaver. This had excellent exposure of the rotator cuff. The bursal side rotator cuff was investigated and there is no clear tearing. The PDS was identified. This area was probed and immediately the probe sank into the rotator cuff tissue and through it into the articular side. This identified only a few remaining bursal fibers. Therefore, I took down this area of the rotator cuff using both letter cautery and shaver which easily exposed the footprint of the supraspinatus tear. There was a large anterolateral spur. Using a spinal needle a lateral portal was established. This became the viewing portal. I then debrided down the tuberosity in preparation for repair. The tear was no more than 1 cm in width. A single Mitek Healix anchor was then placed near to the articular margin within the footprint. 2 horizontal mattress sutures were then placed. This brought the tendon back down to bone. These were then tied using standard arthroscopic knot tying techniques. After they were tied there was noted to be a small dogear anteriorly. Therefore I placed a single lateral row anchor incorporating these 4 suture limbs into it in a slightly anterior position. I then used the dogears stitch from within the lateral row to place into this tissue and tied a simple suture bringing this tissue back down the bone. This nicely reapproximated the tendon onto the bone. There is no gapping. There is no visible articular surface. A 5.0 mm rosy was then inserted from the posterior portal. The anterolateral corner of the acromion was then resected in plane with the posterior slope of the acromion. The scope equipment was removed from the shoulder. Excess fluid was evacuated. The portal sites were closed with 3-0 Monocryl. The wounds were dressed with Steri-Strips, 4 x 4's, ABDs, Medipore tape. A sling was applied. The patient tolerated the procedure well and was returned to the Same Day Surgery area in a stable condition suffering no known complication.
== END 2019-01-10 15:42 | disposition home or self-care (01) ==
PROVIDERS: PCP Nurse Practitioner; Visit Provider Student in an Organized Health Care Education/Training Program
PROC: (CPT 29827; principal; 2019-01-10 11:15)
DX: S46.011A Strain of muscle(s) and tendon(s) of the rotator cuff of right shoulder, initial encounter (principal); S54.01XA Injury of ulnar nerve at forearm level, right arm, initial encounter; W19.XXXA Unspecified fall, initial encounter; X50.1XXA Overexertion from prolonged static or awkward postures, initial encounter; M75.21 Bicipital tendinitis, right shoulder
CPT/HCPCS: 29827; 29823; 29826; NC; J0690; J2250; J2405; J3010; L3670

== ENCOUNTER 2019-01-12 14:28 | Emergency (ER) | payer MEDICARE, MEDICAID, SELFPAY ==
[2019-01-12 14:30] VITALS: BP 133/76; PULSE 79; RESP 16; TEMP 36.8; O2SAT 95
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
[2019-01-12 15:04] LABS: Abs Immature Grans 0.02 k/cumm (0.0-0.09); Absolute Basophil Count 0.02 k/cumm (0.0-0.2); Absolute Eosinophil Count 0.29 k/cumm (0.0-0.7); Absolute Lymphocyte Count 3.41 k/cumm (1.2-3.4); Absolute Monocyte Count 0.57 k/cumm (0.11-0.7); Absolute Neutrophil Count 4.19 k/cumm (1.2-6.7); Basophils % 0.2; Eosinophils % 3.4; HCT 37.9 % (36.0-46.0); HGB 12.6 g/dL (12.0-15.5); Immature Grans % 0.2; Lymphocytes % 40.1; Mean Corp. HGB Concentration 33.2 g/dL (32.0-36.0); Mean Corpuscular Hemoglobin 31.6 pg (27.0-33.0); Mean Platelet Volume 9.1 fL (8.0-11.0); Monocytes % 6.7; Neutrophils % 49.4; Platelet Count 211 x1000/uL (130-400); RBC 3.99 m/cumm (4.00-5.20); RBC Distribution Width 12.8 % (11.7-14.6)
[2019-01-12] MEDS: LORazepam 2 MG/ML VIAL 0.5 MG IVP (15:14)
[2019-01-12 15:21] LABS: ALT 31 U/L (12-78); AST 24 U/L (15-37); Albumin 3.3 g/dL (3.4-5.0); Alkaline Phosphatase 57 U/L (46-116); Anion Gap 8.9 mmol/L (3-11); BUN 13 mg/dL (7-18); Bilirubin, Total 0.2 mg/dL (0.2-1.0); CO2 28.1 mmol/L (21.0-32.0); CREATININE 0.93 mg/dL (0.55-1.02); Calcium 8.7 mg/dL (8.5-10.1); Chloride 105 mmol/L (98-107); Glucose 86 mg/dL (70-100); Magnesium 1.9 mg/dL (1.8-2.4); Potassium 3.5 mmol/L (3.5-5.1); Sodium 142 mmol/L (136-145)
[2019-01-12 15:22] LABS: Troponin I < 0.05 ng/mL (0.00-0.06)
[2019-01-12 15:39] LABS: D-Dimer 887 ng/mlFEU (<500)
--- NOTE | 2019-01-12 15:43 | DI.CT_ITS ---
SYMPTOM/DIAGNOSIS: ? RT PHRENIC N PALSY, SOB, ELEVATED D DIMER, POST OP PE CHEST CT: CT angiography was performed with multi slice acquisition and multi planar and 3D reconstruction. CTA of the chest was performed with a bolus infusion of 100 cc's of Omnipaque 350. No major pulmonary embolus identified however there is focal embolus in a segmental and subsegmental right upper lobe pulmonary artery. Minimal peripheral atelectasis also noted in this area. No additional pulmonary emboli are seen. No abdominal aortic aneurysm or dissection. No mediastinal mass or adenopathy. Tracheobronchial tree appears intact. Lungs appear predominantly clear except for the aforementioned atelectasis and/or consolidation. No significant pleural effusion is seen. No pneumothorax. Images obtained through the upper abdomen show unremarkable appearance of visualized portions of adrenals, kidneys, spleen and pancreas. Liver appears enlarged and there is probable hepatic steatosis. CONCLUSION: Some areas of atelectasis and/or scarring noted in the right lung. Small peripheral pulmonary embolus in right upper lobe pulmonary arterial circulation. No evidence of right heart strain. Note is made of hepatic steatosis.
--- NOTE | 2019-01-12 15:54 | NUR.NOTE ---
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
[2019-01-12] MEDS: Omnipaque 350 MG/ML 100 ML BTL IJ (16:01)
[2019-01-12] MEDS: Normal Saline Flush 10 ML SYR IVP (16:06)
--- NOTE | 2019-01-12 16:30 | DI.VRAD_ITS ---
EXAM: CT Angiography Chest With Contrast EXAM DATE/TIME: 01/12/2019 3:45 PM CLINICAL HISTORY: 58 years old, female; Shortness of breath; Right-sided chest pain; Patient HX: PT is two days post-op, elevated d-dimer TECHNIQUE: Imaging protocol: Axial computed tomographic angiography images of the chest with intravenous contrast using CT angiography protocol. Coronal and sagittal reformatted images were created and reviewed. 3D rendering: MIP reconstructed images were created and reviewed. Radiation optimization: All CT scans at this facility use at least one of these dose optimization techniques: automated exposure control; mA and/or kV adjustment per patient size (includes targeted exams where dose is matched to clinical indication); or iterative reconstruction. Contrast material: OMNIPAQUE 350;Contrast volume: 100 ml;Contrast route: IV; COMPARISON: CT CHEST FOR PULMONARY EMBOLUS 07/26/2015 4:13 PM FINDINGS: Pulmonary arteries: No pulmonary embolus or aortic dissection. Aorta: Unremarkable. No aortic aneurysm. No aortic dissection. Lungs: Scarring and/or atelectasis in the medial segment of the right middle lobe. Mild right basilar atelectasis and/or pneumonia. Pleural space: Unremarkable. No pneumothorax. No pleural effusion. Heart: Unremarkable. No cardiomegaly. No pericardial effusion. Liver: Severe fatty infiltration of the liver. Gallbladder and bile ducts: Absent gallbladder consistent with previous cholecystectomy. Lymph nodes: Unremarkable. No enlarged lymph nodes. Bones/joints: Mild thoracic spondylosis. Soft tissues: Unremarkable. IMPRESSION: 1. Severe fatty infiltration of the liver. 2. Mild right basilar atelectasis and/or pneumonia. 3. No pulmonary embolus or aortic dissection. Dictated and Authenticated by: Andrea Encinas MD. Ordering:MARCO Patterson MD
[2019-01-12 17:23] VITALS: BP 132/70; PULSE 81; RESP 14; TEMP 36.8; O2SAT 95
--- NOTE | 2019-01-13 09:41 | W.ED.FU ---
Case discussed with Dr. Wang radiologist -- CT chest read as negative yesterday inaccurate - pt has a small right upper lobe segmental and subsegmental PE. Patient was called on her cell phone and voicemail was left to return call to the ER. Harman from her primary care doctor's office was also notified of the CT findings. Patient returned the call to the emergency department and she was notified of the CT chest findings. She states she has been generally the same since yesterday and still admits to some fluttering in the area of her diaphragm but denies any shortness of breath at this time. Review of the chart from yesterday notes that patient had been hemodynamically stable during her ED visit yesterday 01/12/19 and improved with ativan and was discharged home. She has a low risk pulmonary embolism severity index score. She is advised to return to the emergency department as soon as possible for evaluation and whether she is appropriate for admission for treatment of pulmonary embolism or whether she can be treated with outpatient anticoagulation. Patient states she needs to obtain a ride to the emergency department and will plan to come as soon as possible.
== END 2019-01-12 17:23 | disposition home or self-care (01) ==
PROVIDERS: Emergency Provider Emergency Medicine; PCP Nurse Practitioner
DX: G56.81 Other specified mononeuropathies of right upper limb (principal); F41.9 Anxiety disorder, unspecified; I26.99 Other pulmonary embolism without acute cor pulmonale; Y83.8 Other surgical procedures as the cause of abnormal reaction of the patient, or of later complication, without mention of misadventure at the time of the procedure
CPT/HCPCS: 36415; 71275; 80053; 96374; 99285; 83735; 84484; 85025; 85379; 99284; J2060; J3490

== ENCOUNTER 2019-01-13 10:56 | Emergency (ER) | payer MEDICARE, MEDICAID, SELFPAY ==
[2019-01-13 11:04] VITALS: BP 129/98; PULSE 99; RESP 16; TEMP 36.3; O2SAT 95
[2019-01-13 11:08] VITALS: RESP 16
--- NOTE | 2019-01-13 11:24 | DI.US_ITS ---
SYMPTOMS/DIAGNOSIS: + PE, ? LEG DVT DUPLEX VENOUS ULTRASOUND BOTH LOWER EXTREMITIES: Duplex evaluation of the deep venous system was performed according to the usual protocol. The deep veins are freely compressible throughout to the level of the popliteal veins. There is normal doppler flow visible throughout and there is excellent flow augmentation with manual calf compression. CONCLUSION: No evidence of deep venous thrombosis.
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
[2019-01-13 11:55] LABS: Abs Immature Grans 0.02 k/cumm (0.0-0.09); Absolute Basophil Count 0.02 k/cumm (0.0-0.2); Absolute Eosinophil Count 0.28 k/cumm (0.0-0.7); Absolute Lymphocyte Count 2.83 k/cumm (1.2-3.4); Absolute Monocyte Count 0.51 k/cumm (0.11-0.7); Absolute Neutrophil Count 5.52 k/cumm (1.2-6.7); Basophils % 0.2; Eosinophils % 3.1; HCT 38.2 % (36.0-46.0); Immature Grans % 0.2; Lymphocytes % 30.8; Mean Corpuscular Hemoglobin 31.5 pg (27.0-33.0); Mean Corpuscular Volume 92.5 fL (80-95); Monocytes % 5.6; Neutrophils % 60.1; Platelet Count 219 x1000/uL (130-400); RBC 4.13 m/cumm (4.00-5.20); RBC Distribution Width 12.8 % (11.7-14.6); White Blood Cell Count 9.18 k/cumm (4.4-10.8)
[2019-01-13 12:17] LABS: ALT 38 U/L (12-78); AST 38 U/L (15-37); Albumin 3.3 g/dL (3.4-5.0); Alkaline Phosphatase 56 U/L (46-116); Anion Gap 11.8 mmol/L (3-11); BUN 10 mg/dL (7-18); Bilirubin, Total 0.4 mg/dL (0.2-1.0); CO2 24.2 mmol/L (21.0-32.0); CREATININE 0.78 mg/dL (0.55-1.02); Calcium 8.8 mg/dL (8.5-10.1); Chloride 104 mmol/L (98-107); Glucose 84 mg/dL (70-100); Magnesium 1.8 mg/dL (1.8-2.4); Potassium 3.7 mmol/L (3.5-5.1); Sodium 140 mmol/L (136-145)
[2019-01-13 12:18] LABS: Troponin I < 0.05 ng/mL (0.00-0.06)
--- NOTE | 2019-01-13 13:02 | DI.CT_ITS ---
SYMPTOMS/DIAGNOSIS: H/O AVM, ? ACUTE PROCESS CRANIAL CT: Noncontrast cranial CT was performed. The patient has a history of previous left temporal lobe AVM treated by radiation. The examination is compared to previous examination of 03/11/15 and areas of calcification present in the left temporal lobe are less prominent on the current study. Areas of encephalomalacia of the left temporal lobe appear essentially unchanged. No evidence of acute hemorrhage. No mass effect. No abnormality seen in the remainder of the brain. The ventricular system is normal in appearance. The orbital and temporal bone structures appear intact. The paranasal sinuses and mastoid air cells appear clear as visualized. CONCLUSION: No evidence of acute intracranial process.
[2019-01-13 13:22] VITALS: BP 139/79; PULSE 75; RESP 15; TEMP 36.1; O2SAT 97
[2019-01-13] MEDS: Apixaban 5 MG TAB 10 MG PO ×2 (13:39→14:00)
[2019-01-13 14:00] VITALS: BP 132/83; PULSE 78; RESP 16; TEMP 36.3; O2SAT 97
--- NOTE | 2019-01-13 14:22 | NUR.NOTE ---
Nursing Note: Pt instructed to take additional dose of Eliqus this Evening as prescribed by MD Campbell. All instructions regarding medication administration were provided to the PT in the DC paper work
== END 2019-01-13 14:01 | disposition home or self-care (01) ==
PROVIDERS: Emergency Provider Physician Assistant; PCP Nurse Practitioner
DX: I26.99 Other pulmonary embolism without acute cor pulmonale (principal); Y83.8 Other surgical procedures as the cause of abnormal reaction of the patient, or of later complication, without mention of misadventure at the time of the procedure; Q28.2 Arteriovenous malformation of cerebral vessels
CPT/HCPCS: 36415; 80053; 93005; 99285; 70450; 83735; 84484; 85025; 93010; 93970

== ENCOUNTER → 2019-01-23 12:41 | Outpatient (BNVA) | payer MEDICARE, MEDICAID, SELFPAY | PROVIDERS: PCP Nurse Practitioner; Referring Provider Nurse Practitioner; Visit Provider Student in an Organized Health Care Education/Training Program | DX: S46.011A Strain of muscle(s) and tendon(s) of the rotator cuff of right shoulder, initial encounter (principal); X58.XXXA Exposure to other specified factors, initial encounter; I26.99 Other pulmonary embolism without acute cor pulmonale ==

== ENCOUNTER → 2019-02-20 13:42 | Outpatient (BNVA) | payer MEDICARE, MEDICAID, SELFPAY | PROVIDERS: PCP Nurse Practitioner; Referring Provider Nurse Practitioner; Visit Provider Student in an Organized Health Care Education/Training Program | DX: I26.99 Other pulmonary embolism without acute cor pulmonale (principal); Z47.89 Encounter for other orthopedic aftercare; Z79.01 Long term (current) use of anticoagulants ==

== ENCOUNTER → 2019-04-03 08:44 | Outpatient (BNVA) | payer MEDICARE, MEDICAID, SELFPAY | PROVIDERS: PCP Nurse Practitioner; Referring Provider Nurse Practitioner; Visit Provider Student in an Organized Health Care Education/Training Program | DX: Z09 Encounter for follow-up examination after completed treatment for conditions other than malignant neoplasm (principal); Z98.890 Other specified postprocedural states; I26.99 Other pulmonary embolism without acute cor pulmonale; M25.511 Pain in right shoulder | CPT/HCPCS: 20610; 99214; J1040 ==

== ENCOUNTER → 2019-05-15 08:24 | Outpatient (BNVA) | payer MEDICARE, MEDICAID, SELFPAY | PROVIDERS: PCP Nurse Practitioner; Referring Provider Nurse Practitioner; Visit Provider Student in an Organized Health Care Education/Training Program | DX: Z47.89 Encounter for other orthopedic aftercare (principal); M25.511 Pain in right shoulder | CPT/HCPCS: 99213 ==

== ENCOUNTER → 2019-08-14 08:18 | Outpatient (BNVA) | payer MEDICARE, MEDICAID, SELFPAY | PROVIDERS: PCP Nurse Practitioner; Referring Provider Nurse Practitioner; Visit Provider Student in an Organized Health Care Education/Training Program | DX: M25.511 Pain in right shoulder; Z47.89 Encounter for other orthopedic aftercare | CPT/HCPCS: 99212 ==

== ENCOUNTER 2020-05-09 01:05 | Outpatient (CLI) | payer MEDICARE, MEDICAID, SELFPAY ==
--- NOTE | 2020-05-09 09:30 | DI.MAMMO_ITS ---
EXAM: MG MAMMO DIAGNOSTIC 60 MIN DUR CLINICAL HISTORY: SCREENING, PERSONAL H/O BREAST CA. TECHNIQUE: Bilateral full field digital CC and MLO mammographic images were obtained with 3D tomosyn thesis and utilizing computer aided detection (CAD). Also performed additional spot Mag 2D view of ri ght breast calcifications. COMPARISON: Prior mammograms dating back to 2012, the most recent being January 2009. This patient u nderwent right breast lumpectomy for malignancy approximately 10 years ago and bilateral breast reduc tion surgery. FINDINGS: There are no new significant radiographic findings in the left breast. In the right breast are again noted multiple benign calcified oil cysts. However, there is a new sma ll group of the subtle microcalcifications for which spot magnification view was performed. Recommen d follow-up 6 months. No new spiculated masses. No new architectural distortion. IMPRESSION: There is a new group of microcalcifications in the right breast. Follow-up mammogram in 6 months rec ommended. Repeat spot Mag view at that time should be performed. No radiographic evidence of malignancy in the opposite-left breast. BI-RADS Category 3 - 6 month - Probably Benign Finding: Recommend follow-up mammography in 6 months Breast Density - Category B - Scattered areas of fibroglandular density Breast density Category C or D implies that the patient has dense breast tissue. Dense breast tissue can make it harder to find cancer on a mammogram. Dense breast tissue is also associated with an incr eased risk of breast cancer. This information about the result of the mammogram report was provided to the patient to raise their awareness. Use this report when you speak with the patient about their risks for breast cancer, which includes their family history. At that time, you may recommend additional screening tests (Ultrasoun d or MRI) as these tests may add significant information. A negative radiographic report should not delay biopsy if a dominant or clinically suspicious mass is present. Up to ten percent of cancers are not identified on mammography. A negative report may reinforce clinical impression. Adenosis and dense breasts may obscure an underlying neoplasm. False positive reports average 6 to 10%. Patient will receive a letter notifying them of these results.
== END 2020-05-09 01:25 ==
PROVIDERS: PCP Nurse Practitioner; Visit Provider Nurse Practitioner
DX: R92.0 Mammographic microcalcification found on diagnostic imaging of breast (principal); Z12.31 Encounter for screening mammogram for malignant neoplasm of breast; Z85.3 Personal history of malignant neoplasm of breast
CPT/HCPCS: 77063; 77067

== ENCOUNTER 2020-11-12 02:29 | Outpatient (CLI) | payer MEDICARE, MEDICAID, SELFPAY ==
--- NOTE | 2020-11-12 09:35 | DI.MAMMO_ITS ---
Exam(s) MG MAMMO DIAGNOSTIC UNI EXAM: MG MAMMO DIAGNOSTIC UNI CLINICAL HISTORY: DIAGNOSTIC, F/U ABNL MAMMO, 6 MONTH F/U. TECHNIQUE: Craniocaudal and mediolateral oblique Full Field Digital Mammography views of the right b reast with Computer Aided Diagnosis followed by Tomosynthesis. COMPARISON: Comparison is made with prior examinations. FINDINGS: Mammography/Tomosynthesis: Masses/Architectural Distortion: None seen. Microcalcifictions: There are stable calcifications seen in the right breast. Skin Thickening/Nipple Retraction: None. IMPRESSION: 1. No evidence of malignancy is noted. Stable microcalcifications in the right breast. 2. A six-month follow-up right mammogram with spot magnification views is requested for re-evaluation of the microcalcifications. 3. The findings were discussed with the patient on the date of the examination. BI-RADS Category 3 - 6 month - Probably Benign Finding: Recommend follow-up imaging in 6 months Breast Density - Category B - Scattered areas of fibroglandular density Breast density Category C or D implies that the patient has dense breast tissue. Dense breast tissue can make it harder to find cancer on a mammogram. Dense breast tissue is also associated with an incr eased risk of breast cancer. This information about the result of the mammogram report was provided to the patient to raise their awareness. Use this report when you speak with the patient about their risks for breast cancer, which includes their family history. At that time, you may recommend additional screening tests (Ultrasoun d or MRI) as these tests may add significant information. A negative radiographic report should not delay biopsy if a dominant or clinically suspicious mass is present. Up to ten percent of cancers are not identified on mammography. A negative report may reinforce clinical impression. Adenosis and dense breasts may obscure an underlying neoplasm. False positive reports average 6 to 10%. Patient will receive a letter notifying them of these results.
== END 2020-11-12 02:49 ==
PROVIDERS: PCP Nurse Practitioner; Visit Provider Nurse Practitioner
DX: Z12.31 Encounter for screening mammogram for malignant neoplasm of breast (principal); R92.8 Other abnormal and inconclusive findings on diagnostic imaging of breast; N64.59 Other signs and symptoms in breast
CPT/HCPCS: 77061; 77065; G0279

== ENCOUNTER 2021-05-22 01:36 | Outpatient (CLI) | payer MEDICARE, MEDICAID, SELFPAY ==
--- NOTE | 2021-05-22 14:15 | DI.MAMMO_ITS ---
Exam(s) MG MAMMO DIAGNOSTIC BI EXAM: MAMMO DIAGNOSTIC BI CLINICAL HISTORY: DIAGNOSTIC, F/U TO ABNL MAMMO, 6 MO F/U. TECHNIQUE: Both CC and MLO views of both breasts were performed. Performed with 3D tomosynthesis te chnique and utilizing computer aided detection (CAD). Also performed additional spot Mag 2D cc view of microcalcification group in the right breast. COMPARISON: Prior mammograms dating back to 2012, the most recent being May 2020. Apparently t his patient had an interval 2nd opinion visit at [facility] and was informed that these were benign This patient underwent lumpectomy for malignancy in the right breast 11 years ago as well as bilatera l breast reduction surgery. FINDINGS: The microcalcification group in the right breast remains unchanged. Benign macro calcifications and peripherally calcified benign oil cysts in the right breast also agai n noted. There are no concerning microcalcification groups in the left breast. No new masses. Architectural distortion in the right breast is unchanged from prior studies. IMPRESSION: 1. No radiographic evidence of malignancy in left breast. 2. Stable appearing microcalcification group in the right breast. Appropriate follow-up is repeat [facility] breast diagnostic mammogram in 6 months with repeat spot Mag 2D view of these microcalcifications . These require every 6 months imaging for total of 2 years to ensure stability. . The patient was informed of the findings and follow-up recommendations [facility]. BI-RADS Category 3 - 6 month - Probably Benign Finding: Recommend follow-up mammography in 6 months Breast Density - Category B - Scattered areas of fibroglandular density Breast density Category C or D implies that the patient has dense breast tissue. Dense breast tissue can make it harder to find cancer on a mammogram. Dense breast tissue is also associated with an incr eased risk of breast cancer. This information about the result of the mammogram report was provided to the patient to raise their awareness. Use this report when you speak with the patient about their risks for breast cancer, which includes their family history. At that time, you may recommend additional screening tests (Ultrasoun d or MRI) as these tests may add significant information. A negative radiographic report should not delay biopsy if a dominant or clinically suspicious mass is present. Up to ten percent of cancers are not identified on mammography. A negative report may reinforce clinical impression. Adenosis and dense breasts may obscure an underlying neoplasm. False positive reports average 6 to 10%. Patient will receive a letter notifying them of these results.
== END 2021-05-22 01:56 ==
PROVIDERS: PCP Nurse Practitioner; Visit Provider Nurse Practitioner
DX: R92.8 Other abnormal and inconclusive findings on diagnostic imaging of breast; N60.11 Diffuse cystic mastopathy of right breast; R92.0 Mammographic microcalcification found on diagnostic imaging of breast; Z85.3 Personal history of malignant neoplasm of breast
CPT/HCPCS: 77062; 77066; G0279

== ENCOUNTER 2021-07-07 13:42 | Outpatient (REF) | payer MEDICARE, MEDICAID, SELFPAY ==
[2021-07-07 16:21] LABS: ALT 42 U/L (14-59); AST 33 U/L (15-37); Alkaline Phosphatase 73 U/L (46-116); Anion Gap 10.2 mmol/L (3-11); BUN 20 mg/dL (7-18); Bilirubin, Total 0.4 mg/dL (0.2-1.0); CO2 28.8 mmol/L (21.0-32.0); CREATININE 0.9 mg/dL (0.55-1.02); Calcium 9.1 mg/dL (8.5-10.1); Chloride 100 mmol/L (98-107); Glucose 94 mg/dL (74-106); Potassium 4.2 mmol/L (3.5-5.1); Sodium 139 mmol/L (136-145); Total Protein 7.5 g/dL (6.4-8.2)
== END 2021-07-07 13:43 | disposition home or self-care (01) ==
LOC: NCHCN 13:42
PROVIDERS: PCP Nurse Practitioner; Visit Provider Nurse Practitioner Family
DX: Z51.81 Encounter for therapeutic drug level monitoring (principal)
CPT/HCPCS: 80053

== ENCOUNTER → 2021-07-14 02:03 | Outpatient (CLI) | payer MEDICARE, MEDICAID, SELFPAY ==
--- NOTE | 2021-07-14 | DI.US_ITS ---
Exam(s) US BREAST RT LIMITED EXAM: US BREAST RT LIMITED CLINICAL HISTORY: RT BREAST PAIN, N64.4. TECHNIQUE: Limited ultrasound of the right breast was performed. COMPARISON: Prior mammograms were reviewed. Most recent mammogram was 05/22/2021. FINDINGS: Images from limited ultrasound examination of the right chest wall the border of the lateral aspect o f the breast and chest wall are submitted for interpretation. Apparently this patient feels small lump at this location. Ultrasound of this region reveals no evidence of solid or significant cystic lesions. IMPRESSION: Negative limited right breast ultrasound with no significant focal ultrasound findings in the area of palpable concern located quite laterally in the right breast at the junction of the breast and chest wall. If clinically indicated repeat mammogram can be performed. Alternatively, if it is felt that this is outside of the breast then CT scan can be performed. BI-RADS Category 2 - Benign ultrasound findings. See above recommendation Breast Density - Category B - Scattered areas of fibroglandular density Breast density Category C or D implies that the patient has dense breast tissue. Dense breast tissue can make it harder to find cancer on a mammogram. Dense breast tissue is also associated with an incr eased risk of breast cancer. This information about the result of the mammogram report was provided to the patient to raise their awareness. Use this report when you speak with the patient about their risks for breast cancer, which includes their family history. At that time, you may recommend additional screening tests (Ultrasoun d or MRI) as these tests may add significant information. A negative radiographic report should not delay biopsy if a dominant or clinically suspicious mass is present. Up to ten percent of cancers are not identified on mammography. A negative report may reinforce clinical impression. Adenosis and dense breasts may obscure an underlying neoplasm. False positive reports average 6 to 10%. Patient will receive a letter notifying them of these results.
== END ==
PROVIDERS: PCP Nurse Practitioner; Visit Provider Nurse Practitioner Family
DX: N64.4 Mastodynia (principal)
CPT/HCPCS: 76642

== ENCOUNTER 2022-05-06 06:40 | Emergency (ER) | payer MEDICARE, MEDICAID, SELFPAY ==
[2022-05-06 06:45] VITALS: BP 142/92; PULSE 106; RESP 16; TEMP 36.5; O2SAT 96
--- NOTE | 2022-05-06 07:15 | DI.RAD_ITS ---
Exam(s) XR KNEE RT 3V AP,LAT,SERJIO EXAM: XR KNEE RT 3V AP,LAT,SERJIO CLINICAL HISTORY: R knee popped out, assess knee hardware. TECHNIQUE: 2D digital imaging was performed. COMPARISON: No exams were available for comparison FINDINGS: 3 views There is a right knee prosthesis. This appears intact with no for fracture or loosening evident. No obvious joint effusion. No radiographic evidence of osteomyelitis. There is a calcific density measuring 11 by 7 millimeters seen laterally, off the lateral aspect of t he diaphysis-metaphysis junction of the distal femur. This is probably extra-articular and doubtful for acute significance. IMPRESSION: As above. Discussed with ER physician DATA REPOSITORY: RADIATION DOSE DELIVERED:
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
--- OUTSIDE RECORDS SUMMARY | 2022-05-06 08:17 | XMS_ITS | Encounter Summary ---
:1960 Author Organization [facility] [place] [address] Care Team Providers Name Role Phone Zenaida Gupta APRN Primary Care Provider Reason for Visit Reason Onset Date Comments Other 01/17/2019 Encounter Details Date Type Department Care Team Description 01/17/2019 Telephone Hematology/Oncology at Jennifer Becerra RN Other [place] [phone] Social History Tobacco Use Types Packs/Day Years Used Date Smoking Tobacco: Every Day Cigarettes 1 e-Cigarettes Smokeless Tobacco: Never Alcohol Use Standard Drinks/Week Comments Yes 0 (1 standard drink = 0.6 oz pure alcoho l) very rare Sex Assigned at Date Recorded Not on file documented as of this encounter Miscellaneous Notes Telephone Encounter - Jennifer Becerra RN - 01/17/2019 4:02 PM EDT Per Janette Long LAW OFFICE RECEPTIONIST pt developed PE on tamoxifen per PCP Zenaida Castaneda. Patient is to stop taking tamoxifen and see new breast oncologist in [place], [place] to see what other treatment she may need to go on. (her oncologist left last February). Secretaries are setting this up. Left message for patient about this and asked her to call with any questions. Also spoke with Abram CRYSTAL for PCP. She will alsocall pt and let PCP know about this. documented in this encounter Plan of Treatment Not on filedocumented as of this encounter Visit Diagnoses Not on filedocumented in this encounter Care Teams Chore Tender Relationship Specialty Start Date End Date Zenaida Gupta APRN PCP - General Family Medicine 01/17/19 [place] [address] documented as of this encounter
--- OUTSIDE RECORDS SUMMARY | 2022-05-06 08:17 | XMS_ITS | Encounter Summary ---
:1960 Author Organization [facility] [place] [address] Care Team Providers Name Role Phone Parag Noris Mckeon APRN Primary Care Provider Encounter Details Date Type Department Care Team Description 07/08/2018 Ancillary Procedure Radiology Library at Lillian Saez MD [facility] [place] [address] [place] [address] [phone] (Wo rk) Social History Tobacco Use Types Packs/Day Years Used Date Smoking Tobacco: Every Day Cigarettes 1 e-Cigarettes Smokeless Tobacco: Never Alcohol Use Standard Drinks/Week Comments Yes 0 (1 standard drink = 0.6 oz pure alcoho l) very rare Sex Assigned at Date Recorded Not on file documented as of this encounter Plan of Treatment Not on filedocumented as of this encounter Procedures Procedure Name Priority Date/Time Associated Diagnosis Comme nts FILM LIBRARY Routine 07/08/2018 7:06 PM Results f or this STORAGE ONLY MR EST procedure ar e in SPINE the results section. documented in this encounter Results Film Library- Storage Only MR Spine (07/08/2018 7:06 PM EST) Specimen (Source) Anatomical Location Collection Method / Collectio n Time Received Time / Laterality Volume Narrative RAD - 07/08/2018 7:06 PM EST This exam is for storage only and is aut o-finalizing. Dayton Saez MD IMG FILM LIBRARY ORDERABLES Performing Organization Address City/State/ZIP Code Phon e Number RAD [place], [place] documented in this encounter Visit Diagnoses Not on filedocumented in this encounter Care Teams Electrician Journeyman Wireman Relationship Specialty Start Date End Date Noris Tuttle APRN PCP - General Family Medicine 01/28/17 01/04/19 documented as of this encounter
--- OUTSIDE RECORDS SUMMARY | 2022-05-06 08:17 | XMS_ITS | Encounter Summary ---
:1960 Author Organization [facility] Address [address] [place] [address] Care Team Providers Name Role Phone Zenaida Gupta APRN Primary Care Provider Encounter Details Date Type Department Care Team Description 02/14/2021 Hospital Encounter Mammography at [facility] [place], Nipple pain; [facility] Marilee Church APRN Malignant neoplasm of central portion of right breast in female, estrogen receptor positive; [facility] Calcification of right breas t on mammography [place], [place] CENTER [address] GENERAL SURGERY [phone] [place] [address] Social History Tobacco Use Types Packs/Day Years Used Date Smoking Tobacco: Every Day Cigarettes 1 e-Cigarettes Smokeless Tobacco: Never Alcohol Use Standard Drinks/Week Comments Yes 0 (1 standard drink = 0.6 oz pure alcoho l) very rare Sex Assigned at Date Recorded Not on file documented as of this encounter Medications at Time of Discharge Medication Sig Dispensed Refills Start Date End Date VENTOLIN HFA 90 inhale 2 puffs by 0 11/20/2017 mcg/actuation HFA Aerosol mouth BEFORE EXERCISE Inhaler NEEDED baclofen (LIORESAL) 10 mg take 1 tablet by 0 02/05 Tablet mouth three times a day if needed CHOLECALCIFEROL, VITAMIN 0 02/20/2018 D3, 2,000 unit Capsule fexofenadine (DANIELA) 0 03/20/2018 180 mg Tablet omeprazole (PRILOSEC) 20 Take 40 mg by mouth. 0 mg Capsule, Delayed Release(E.C.) prochlorperazine Take 1 tablet by 15 tablet 11 08/19/2018 (COMPAZINE) 10 mg Tablet mouth every 6 hours as needed for Nausea. amoxicillin (AMOXIL) 500 TAKE 4 CAPSULES BY 0 mg Capsule MOUTH ONCE, 1 ARNULFO BEFORE DENTAL APPOINTMENTS B-complex with vitamin C Take by mouth. 0 Tablet cefdinir (OMNICEF) 300 mg take 1 capsule by 0 Capsule mouth every 12 hours for 10 days VITAMINS B COMPLEX take 1 capsule by 90 capsule 3 03/19/2017 CapsuleIndications: mouth once daily Malignant neoplasm involving both nipple and areola of right breast in female magnesium oxide (MAG-OX) Take 400 mg by mouth 0 400 mg Tablet daily. loratadine (CLARITIN) 10 Take 10 mg by mouth 0 mg Tablet daily. dexlansoprazole Take 60 mg by mouth 0 (DEXILANT) 60 mg Cap, daily. Delayed Rel., Multiphasic documented as of this encounter Plan of Treatment Not on filedocumented as of this encounter Procedures Procedure Name Priority Date/Time Associated Diagnosis Comme nts MAMMO DIAGNOSTIC CAD Routine 02/14/2021 9:41 AM Nipple p ain Results for this AND VENKATA RIGHT EDT Malignant neoplasm procedu re are in of central portion the resul ts of right breast in section. female, estrogen receptor positiv e Calcification of right breast on mammography documented in this encounter Results Mammo Diagnostic Cad and Venkata Right (02/14/2021 9:41 AM EDT) Anatomical Region Laterality Modality Breast Right Mammography Specimen (Source) Anatomical Location Collection Method / Collectio n Time Received Time / Laterality Volume Impressions 02/14/2021 12:26 PM EDT No mammographic or sonographic evidence of malignancy in the right breast. Recommendation: Advise clinical follow-u p. Findings and recommendations reviewed wi th the patient who concurs. Patient is currently in follow-up for ma mmographic surveillance of probably benign calcifications in the right lower central breast, which she plans to continue at [place], [place]. Right - BI-RADS Category 2: Benign Findi ngs Thank you for letting us participate in the care of this patient. ??If you are a health care provider and have any questi ons regarding this report, please contact the number below. ??For patients who have questions please contact the health care services manager that requested your imaging first. ? Narrative 02/14/2021 12:26 PM EDT EXAMINATION: MAMMO DIAGNOSTIC CAD AND VENKATA RIGHT, US BREAST LIMITED RIGHT CLINICAL HISTORY: Pinching nipple pain on the right; history of right breast cancer in 2010 status post lumpectomy. TECHNIQUE: CC, MLO, ML, CC nipple in pro file views of the right breast using 2-D mammography and 3-D venkata synthesis were performed. I personally performed targeted ultrasound of the right breast following the technologist. A metallic marker was placed at the site of focal p ain in the right breast/nipple region. COMPARISON: This is compared with prior images. FINDINGS: There are scattered areas of f ibroglandular density. There are no suspicious microcalcifications, masses, or areas of distortion. There are post treatment changes in the right breast. T he pattern is stable. Specifically, no mammographic abnormality is seen in the periareolar region of the right breast over the right nipple to correspond to t he patient's area of clinical concern. Targeted ultrasound of the right breast retroareolar region and periareolar region with attention to the 9:00 retroa reolar region, at the site of clinical concern was performed. There is no evide nce of discrete solid lesion, abnormal acoustical shadowing or cyst. Marilee Branham ABSENCE MANAGEMENT CONSULTANT IMG MAMMO ORDERABLES documented in this encounter Visit Diagnoses Diagnosis Nipple pain Mastodynia Malignant neoplasm of central portion of right breast in female, estrogen receptor positive Calcification of right breast on mammogr aphy documented in this encounter Care Teams Supervisor Coin Machine Relationship Specialty Start Date End Date Zenaida Gupta APRN PCP - General Family Medicine 01/17/19 [place] [address] documented as of this encounter
--- OUTSIDE RECORDS SUMMARY | 2022-05-06 08:17 | XMS_ITS | Encounter Summary ---
:1960 Author Organization [facility] [place] [address] Care Team Providers Name Role Phone Zenaida Gupta APRN Primary Care Provider Encounter Details Date Type Department Care Team Description 11/12/2020 Ancillary Procedure [facility]iology [facility] FOOD PROCESSING SCIENTIST [facility] [address] [place] [address] [phone] (Wo rk) Social History Tobacco Use Types [...] Associated Diagnosis Comme nts FILM LIBRARY Routine 11/12/2020 12:00 AM Results for this STORAGE ONLY MAMMO EDT procedure are in the results section. documented in this encounter Results Film Library- Storage Only Mammo (11/12/2020 12:00 AM EDT) Specimen (Source) Anatomical Location Collection Method / Collectio n Time Received Time / Laterality Volume Narrative [facility] - 02/03/2021 3:45 PM EDT This exam is auto-finalizing. It's purpo se is for storage only. Zenaida Gupta APRN IMChastity FILM LIBRARY ORDERABLES Performing Organization Address City/State/ZIP Code Phon e Number RAD [place], [place] documented in this encounter Visit Diagnoses Not on filedocumented in this encounter Care Teams New Account Interviewer Relationship Specialty Start Date End Date Zenaida Gupta APRN PCP - General Family Medicine 01/17/19 [address] [place] [address] documented as of this encounter
--- OUTSIDE RECORDS SUMMARY | 2022-05-06 08:17 | XMS_ITS | Encounter Summary ---
:1960 Author Organization [facility] [place] [address] Care Team Providers Name Role Phone Noris Tuttle APRN Primary Care Provider Encounter Details Date Type Department Care Team Description 07/07/2018 Refill Hematology/Oncology at Chencho Haney APRN Malignant neoplasm of [facility] [address] female breast, [address] INTERNAL MEDICINE unspecified estrogen [place] [phone] 18 receptor status, [phone] unspecified laterality, unspecifi ed site of breast Social History Tobacco Use Types Packs/Day Years Used Date Smoking Tobacco: Every Day Cigarettes 1 e-Cigarettes Smokeless Tobacco: Never Alcohol Use Standard Drinks/Week Comments Yes 0 (1 standard drink = 0.6 oz pure alcoho l) very rare Sex Assigned at Date Recorded Not on file documented as of this encounter Plan of Treatment Not on filedocumented as of this encounter Visit Diagnoses Diagnosis Malignant neoplasm of female breast, uns pecified estrogen receptor status, unspecified laterality, unspecified site of breast documented in this encounter Care Teams Bosom Presser Relationship Specialty Start Date End Date Noris Tuttle APRN PCP - General Family Medicine 01/28/17 01/04/19 documented as of this encounter
--- OUTSIDE RECORDS SUMMARY | 2022-05-06 08:17 | XMS_ITS | Encounter Summary ---
:1960 Author Organization [facility] [place] [address] Care Team Providers Name Role Phone Noris Tuttle APRN Primary Care Provider Reason for Visit Reason Comments Back Pain Hip Pain Left Leg Pain Surgical (Routine) - Closed Specialty Diagnoses / Procedures Referred By Contact Refer red To Contact Orthopaedics Diagnoses Radiculopathy of lumbar region Waqar Rodriguez MD Ball, Perry A, MD [facility] [place] [address] Fax: Referral ID Status Reason Start Date Expiration Date Visits V isits Requested Authorized [id number] Closed Consult, 02/15/2018 02/15/2019 1 1 Test & Treat Encounter Details Date Type Department Care Team Description 04/04/2018 Office Visit [facility] Saez M D Low back pain, [facility] non-specific [facility] [address] [facility] NEUROSURGERY [place] [phone] Social History Tobacco Use Types Packs/Day Years Used Date Smoking Tobacco: Every Day Cigarettes 1 e-Cigarettes Smokeless Tobacco: Never Alcohol Use Standard Drinks/Week Comments Yes 0 (1 standard drink = 0.6 oz pure alcoho l) very rare Sex Assigned at Date Recorded Not on file documented as of this encounter Last Filed Vital Signs Vital Sign Reading Time Taken Comments Blood Pressure - - Pulse - - Temperature - - Respiratory Rate - - Oxygen Saturation - - Inhaled Oxygen Concentration - - Weight 94.3 kg (208 lb) 04/04/2018 10:09 AM EDT Height 160 cm (5' 3) 04/04/2018 10:09 AM EDT Body Mass Index 36.85 04/04/2018 10:09 AM EDT documented in this encounter Progress Notes [place] Saez MD - 04/04/2018 10:00 AM EDT Michela Harmon is a woman who I have seen a few times in the past. She has been treated at the pain clinic in [place]. She has persistent back pain with some radiation of pain into her left legbut the overwhelming majority of her complaint, at least 85% is that of back pain. She continues to smoke and has made multiple attempts to stop in the past. On examination motor strength is full in the lower extremities. Deep tendon reflexes are absent at the knees and ankles. Sensation is intact to light touch. Her gait is performed slowly but symmetrically. Review of her lumbar MRI shows a preserved lumbar lordosis. There is loss of disc space height and water content at L2-3 L3-4 L4-5 and L5-S1; there is degenerative spondylolisthesis at L4-5. There is some disc space degeneration principally left sided L5-S1. The degree of central canal stenosis is relatively mild. The foraminal stenosis at L4-5 is also mild but there is foraminal stenosis at L5-S1 onthe left. We reviewed the options and the situation. The overwhelming component of her complaint is back pain.Some consideration could be given to a focused decompression of L5-S1 on the left but this really accounts for the minor part of her symptoms. I think knowing the etiology of her back pain given her mul tiple levels of disc space degeneration is challenging. As she is a lifelong smoker who has made several attempts to stop I think the likelihood of successful fusion here is low. I do not see a good surgical option here. This was discussed with the patient and all questions were answered she will follow- up with the pain clinic in [place] for consideration of spinal stimulation. All questions were answered. documented in this encounter Plan of Treatment Not on filedocumented as of this encounter Visit Diagnoses Diagnosis Low back pain, non-specific documented in this encounter Care Teams Regional Cra Relationship Specialty Start Date End Date Noris Tuttle APRN PCP - General Family Medicine 01/28/17 01/04/19 documented as of this encounter
--- OUTSIDE RECORDS SUMMARY | 2022-05-06 08:17 | XMS_ITS | Encounter Summary ---
:1960 Author Organization [facility] [place] [address] Care Team Providers Name Role Phone Zenaida Gupta APRN Primary Care Provider Reason for Visit Reason Comments Medication Refill Encounter Details Date Type Department Care Team Description 03/20/2018 Refill Hematology Oncology at [facility] MD Malignant neoplasm of [address] female breast, [address] [place] [address] [place] [address] receptor status, [id number] unspecified laterality, unspecifi ed site of breast [...] breast documented in this encounter Care Teams Manager Loan Relationship Specialty Start Date End Date Zenaida Gupta APRN PCP - General Family Medicine 01/17/[address] [place], [place] [id number] documented as of this encounter
--- OUTSIDE RECORDS SUMMARY | 2022-05-06 08:17 | XMS_ITS | Encounter Summary ---
:1960 Author Organization [facility] [place] [address] Care Team Providers Name Role Phone Noris Tuttle APRN Primary Care Provider Encounter Details Date Type Department Care Team Description 08/09/2018 Orders Only Radiation Oncology at [facility] Art eriovenous [facility] ADVANCE AGENT malformation (AVM) [address] [place], [place] RADIATION ONCOL OGY [address] [place], [place] [phone] Social History Tobacco Use Types Packs/Day Years Used Date Smoking Tobacco: Every Day Cigarettes 1 e-Cigarettes Smokeless Tobacco: Never Alcohol Use Standard Drinks/Week Comments Yes 0 (1 standard drink = 0.6 oz pure alcoho l) very rare Sex Assigned at Date Recorded Not on file documented as of this encounter Plan of Treatment Not on filedocumented as of this encounter Visit Diagnoses Diagnosis Arteriovenous malformation (AVM) 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
--- OUTSIDE RECORDS SUMMARY | 2022-05-06 08:17 | XMS_ITS | Encounter Summary ---
:1960 Author Organization [facility] [place] [address] Care Team Providers Name Role Phone Noris Tuttle APRN Primary Care Provider Reason for Visit Reason Comments Radiation Follow-up AVM Encounter Details Date Type Department Care Team Description 08/18/2018 Office Visit Radiation Oncology [facility], Arteri ovenous at [facility] [employer] malformation (AVM) [address] [place], [place] RADIATION ONCOL OGY [address] [place], [place] [phone] Social History Tobacco Use Types Packs/Day Years Used Date Smoking Tobacco: Every Day Cigarettes 1 e-Cigarettes Smokeless Tobacco: Never Alcohol Use Standard Drinks/Week Comments Yes 0 (1 standard drink = 0.6 oz pure alcoho l) very rare Sex Assigned at Date Recorded Not on file documented as of this encounter Last Filed Vital Signs Vital Sign Reading Time Taken Comments Blood Pressure 120/82 08/18/2018 11:09 AM EDT Pulse 80 08/18/2018 11:09 AM EDT Temperature 37 ??C (98.6 ??F) 08/18/2018 11:09 AM EDT Respiratory Rate 20 08/18/2018 11:09 AM EDT Oxygen Saturation 98% 08/18/2018 11:09 AM EDT Inhaled Oxygen Concentration - - Weight 95.3 kg (210 lb) 08/18/2018 11:09 AM EDT Height 160 cm (5' 3) 08/18/2018 11:09 AM EDT Body Mass Index 37.2 08/18/2018 11:09 AM EDT documented in this encounter Progress Notes Domonique James, [employer] - 08/18/2018 11:15 AM EDT Patient ID: Shraddha Chavez is a 58 y.o. 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 She had a surveillance brain MRI and is in clinic to review this as well. Shraddha also has a history of right breast cancer which was treated with radiation therapy for a total dose of 61 Gy which was completed on 03/10/2010. HPI Right breast cancer: stage I, pT1C pN0 M0 IDC w/lobular extension, high gr, s/p R partial mastectomy, sentinel lymphadenectomy & B reduction mammoplasty, ERPR+; s/p adjuvant AC x 4 and radiation therapy which was completed on 03/10/2010. Radiation therapy detail: Target location: Right breast Total dose: 6100 cGy Fraction dose; 180 cGy for 25 fractions followed by 200 cGy boost to surgical bed for 8 fractions. Dates of treatment: 01/22/2010 through 03/10/2010. Total fractions: 33 ?? --patient has had a survivor care plan?? 12/31/2010--see [facility] scanned document. 2. AVM --SRS on 08/12/2010 Target location: Left AVM Total dose: 1800 cGy Patient Active Problem List Diagnosis Code ??? Breast CA C50.919 ??? Blurry vision H53.8 ??? AVM (arteriovenous malformation) Q27.30 ??? Allergy, drug Z88.9 ??? Radiation injury of brain T66.XXXA ??? Hx of total knee replacement Z96.659 ??? Back pain, chronic M54.9, G89.29 ??? Seborrheic keratosis L82.1 ??? Tachycardia, unspecified R00.0 ??? CERVANTES (headache) R51 ??? Posterior tibial tendinitis of left leg M76.822 ??? Peroneal tendonitis M76.70 ??? Malignant neoplasm of upper-outer quadrant of left female breast C50.412 ??? Radiculopathy of lumbar region M54.16 Past Surgical History: Procedure Laterality Date ??? CARPAL TUNNEL RELEASE bilateral ??? HYSTERECTOMY ovaries not removed ??? ROTATOR CUFF REPAIR Allergies Allergen Reactions ??? Latex Itching and Rash ??? Adhesive Tape Localized Reaction ??? Codeine Phosphate Hives, Nausea And Vomiting and Rash ??? Doxycycline Nausea And Vomiting ??? Hydrocodone-Acetaminophen Nausea And Vomiting ??? Hydromorphone Nausea And Vomiting ??? Morphine Sulfate Nausea And Vomiting ??? Nsaids (Non-Steroidal Anti-Inflammatory Drug) Nausea Only and Rash pt tolerates ibuprofen ??? Oxycodone-Acetaminophen Nausea And Vomiting Has n/v if taken on empty stomach. ??? Promethazine Hcl Nausea And Vomiting ??? Toradol [Ketorolac Tromethamine] Hives ??? Cortisone Hot all over / Fever ??? Sulfa (Sulfonamide Antibiotics) Hives ??? Tramadol Nausea And Vomiting ??? Lidocaine Hcl ??? Mobic [Meloxicam] rash Medications 08/19/18 1102 Medication Sig Taking? prochlorperazine (COMPAZINE) 10 mg Tablet Take 1 tablet by mouth every 6 hours as needed for Nausea.Yes tamoxifen (NOLVADEX) 20 mg Tablet Take 1 tablet by mouth daily. Yes VENTOLIN HFA 90 mcg/actuation HFA Aerosol Inhaler inhale 2 puffs by mouth BEFORE EXERCISE NEEDED Yes amoxicillin (AMOXIL) 500 mg Capsule TAKE 4 CAPSULES BY MOUTH ONCE, 1 ARNULFO BEFORE DENTAL APPOINTMENTS Yes baclofen (LIORESAL) 10 mg Tablet take 1 tablet by mouth three times a day if needed Yes B-complex with vitamin C Tablet Take by mouth. Yes cefdinir (OMNICEF) 300 mg Capsule take 1 capsule by mouth every 12 hours for 10 days Yes CHOLECALCIFEROL, VITAMIN D3, 2,000 unit Capsule Yes fexofenadine (DANIELA) 180 mg Tablet Yes omeprazole (PRILOSEC) 20 mg Capsule, Delayed Release(E.C.) Take 40 mg by mouth. Yes VITAMINS B COMPLEX Capsule take 1 capsule by mouth once daily Yes magnesium oxide (MAG-OX) 400 mg Tablet Take 400 mg by mouth daily. Yes loratadine (CLARITIN) 10 mg Tablet Take 10 mg by mouth daily. Yes dexlansoprazole (DEXILANT) 60 mg Cap, Delayed Rel., Multiphasic Take 60 mg by mouth daily. Yes Social History Socioeconomic History ??? Marital status: Spouse name: Not on file ??? Number of children: Not on file ??? Years of education: Not on file ??? Highest education level: Not on file Social Needs ??? Financial resource strain: Not on file ??? Food insecurity - worry: Not on file ??? Food insecurity - inability: Not on file ??? Transportation needs - medical: Not on file ??? Transportation needs - non-medical: Not on file Occupational History ??? Not on file Tobacco Use ??? Smoking status: Current Every Day Smoker Packs/day: 1.00 Types: Cigarettes, e-Cigarettes ??? Smokeless tobacco: Never Used Substance and Sexual Activity ??? Alcohol use: Yes Comment: very rare ??? Drug use: No ??? Sexual activity: Not on file Comment: question deferred Other Topics Concern ??? Not on file Social History Narrative ??? Not on file Advance Directive: on file Interim History: Shraddha reports that she is doing well at this time. She is in a new relationship and she is very happy with this. She reports that she has been having problems with back pain and is scheduled to have electrodes placed along her spine for pain control. She has intermittent headaches. She does have ongoing issues with nausea but this is not distressing her at this time. She needs a refill of the compazine which is helpful in controlling the nausea. She had a repeat MRI which we reviewed and shows no change. She does not report any word finding difficulty at this time. She continues on MAY for her breast cancer. Her last mammogram was in December 2017 and was negative fordisease recurrence. She has no breast complaints. Review of Systems Constitutional: Negative. Negative for activity change, appetite change, chills, diaphoresis, fatigue, fever and unexpected weight change. HENT: Recent sinus infection resolved Eyes: Negative. Negative for visual disturbance. Respiratory: Negative. Negative for cough, chest tightness and shortness of breath. Patient continues to smoke-4- 5 Cigarettes a day. Treated for pneumonia a few weeks ago--resolved Cardiovascular: Negative. Negative for chest pain, palpitations and leg swelling. Gastrointestinal: Positive for nausea. Negative for abdominal pain, constipation, diarrhea and vomiting. See interim history Intermittent nausea Genitourinary: Negative. Negative for difficulty urinating. Post menopausal Musculoskeletal: Positive for arthralgias and back pain. See interim history Skin: Negative. Neurological: Positive for headaches. Negative for dizziness, seizures, weakness and numbness. Rare Headaches Hematological: Negative. Psychiatric/Behavioral: Negative. Vitals Office Visit from 08/18/2018 in Radiation Oncology at [facility] Weight 95.3 kg (210 lb) Height 160 cm (5' 3) BSA (Calculated - sq m) 2.06 sq meters BMI (Calculated) 37.2 Temp 37 ??C (98.6 ??F) Temp src Oral Heart Rate 80 Heart Rate Source NIBP Resp 20 BP 120/82 BP Location Right arm Patient Position Sitting SpO2 98 % Objective: Physical Exam Constitutional: She is oriented to person, place, and time. She appears well- developed and well-nourished. No distress. HENT: Head: Normocephalic and atraumatic. Mouth/Throat: Oropharynx is clear and moist. No oropharyngeal exudate. Eyes: Pupils are equal, round, and reactive to light. Conjunctivae and EOM are normal. Right eye exhibits no discharge. Left eye exhibits no discharge. No scleral icterus. Neck: Normal range of motion. Neck supple. Cardiovascular: Normal rate, regular rhythm and normal heart sounds. Exam reveals no gallop and no friction rub. No murmur heard. Pulmonary/Chest: Effort normal and breath sounds normal. No respiratory distress. She has no wheezes. She has no rales. She exhibits no tenderness. Mild right breast tenderness. No masses, no nipple discharge, no breast lymphedema Abdominal: Soft. Bowel sounds are normal. She exhibits no distension. There is no tenderness. Musculoskeletal: Normal range of motion. She exhibits no edema, tenderness or deformity. Lymphadenopathy: Head (right side): No submental, no submandibular, no tonsillar, no preauricular, no posterior auricular and no occipital adenopathy present. Head (left side): No submental, no submandibular, no tonsillar, no preauricular, no posterior auricular and no occipital adenopathy present. She has no cervical adenopathy. She has no axillary adenopathy. Right: No supraclavicular adenopathy present. Left: No supraclavicular adenopathy present. Neurological: She is alert and oriented to person, place, and time. She has normal strength. She displays no atrophy and no tremor. No cranial nerve deficit or sensory deficit. She exhibits normal muscle tone. She displays a negative Romberg sign. She displays no seizure activity. Coordination normal. Tandem walking difficult Able to stand on one foot Normal finger to nose Skin: Skin is warm and dry. No rash noted. She is not diaphoretic. No erythema. No pallor. Psychiatric: She has a normal mood and affect. Her behavior is normal. Judgment and thought content normal. Vitals reviewed. 11/18/2016- --brain MRI--stable post treatment changes. No change 11/17/2017-- brain MRI--stable post treatment changes. No change 08/12/2018- Brain MRI--stable post treatment changes. No change Assessment and Plan: Shraddha Chavez is a pleasant 56 year old woman with history AVM treated with radiation therapy SRS 18Gy on 08/12/2010. Her recent MRI is stable. Post treatment she developed radiation necrosis. She was treated with hyperbaric oxygen therapy withdecreased symptoms which are now stable. She has had intermittent nausea and this appears to be controlled well at this time and she uses compazine as needed. Her exam today was negative for any concerning findings. We will repeat brain MRI in one year for surveillance and she will be seen in clinic for scheduled follow-up. H/O of right breast cancer: Shraddha continues with MAY and tolerates well. Ongoing follow-up with medical oncology documented in this encounter Plan of Treatment Not on filedocumented as of this encounter Procedures Procedure Name Priority Date/Time Associated Diagnosis Comme nts MRI/MRA SCAN 08/12/2018 12:00 AM Results for this EST procedure are i n the results section . documented in this encounter Results SCAN DOC: MRI/MRA (08/12/2018 12:00 AM EST) Anatomical Region Laterality Modality Other Narrative 08/12/2018 12:00 AM EST This result has an attachment that is no t available. Ordered by an unspecified provider. 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
--- OUTSIDE RECORDS SUMMARY | 2022-05-06 08:17 | XMS_ITS | Encounter Summary ---
:1960 Author Organization [facility] [place] [address] Care Team Providers Name Role Phone Zenaida Gupta APRN Primary Care Provider Encounter Details Date Type Department Care Team Description 02/14/2021 Hospital Encounter Mammography/DXA at [facility] ipple pain; [facility] Marilee Church APRN Malignant neoplasm of central portion of right breast in female, estrogen receptor positive; [facility] Calcifica tion of right breast on mammography Drive [address], [facility] [address] [place], [place] [phone] [facility] Social History Tobacco Use Types Packs/Day Years [...] Priority Date/Time Associated Diagnosis Comme nts MAMMO BREAST US Routine 02/14/2021 10:02 AM Nipple pain Results for this LIMITED RIGHT EDT Malignant neoplasm procedur e are in of central portion the resul ts of right breast in section. female, estrogen receptor positiv e Calcification of right breast on mammography documented in this encounter Results US Breast Limited Right (02/14/2021 10:02 AM EDT) Anatomical Region Laterality Modality Breast [...] breast, which she plans to continue at [place], [place]. Right - BI-RADS Category 2: Benign Findi ngs Thank you for letting us participate in the care of this patient. ??If you are a health care provider and have any questi ons regarding this report, please contact the number below. ??For patients who have questions please contact the health careers counsellor that requested your imaging first. ? Narrative 02/14/2021 12:26 PM EDT EXAMINATION: MAMMO DIAGNOSTIC CAD AND COCO RIGHT, US BREAST LIMITED RIGHT CLINICAL HISTORY: Pinching nipple pain on the right; history of right breast cancer in 2010 status post lumpectomy. TECHNIQUE: CC, MLO, ML, CC nipple in pro file views of the right breast using 2-D mammography and 3-D coco synthesis were performed. I personally performed targeted [...] abnormal acoustical shadowing or cyst. Marilee [facility]ham [employer] SALES REPRESENTATIVE IMG MAMMO ORDERABLES documented in this encounter Visit Diagnoses Diagnosis Nipple pain Mastodynia Malignant neoplasm of central portion of right breast in female, estrogen receptor positive Calcification of right breast on mammogr aphy documented in this encounter Care Teams Pool Hand Relationship Specialty Start Date End Date Zenaida Gupta APRN PCP - General Family Medicine 01/17/19 [place] [address] documented as of this encounter
--- OUTSIDE RECORDS SUMMARY | 2022-05-06 08:17 | XMS_ITS | Encounter Summary ---
:1960 Author Organization [facility] [place] [address] Care Team Providers Name Role Phone Zenaida Gupta APRN Primary Care Provider Reason for Visit (Routine) - Closed Specialty Diagnoses / Procedures Referred By Contact Refer red To Contact Radiology Diagnoses Breast calcification, right Zenaida Gupta APRN Procedures Request for 2nd read Mammo [address] [place], [place] [address] Referral ID Status Reason Start Date Expiration Date Visits Requ ested Visits Authorized [id number] Closed 02/04/2021 02/04/2022 1 1 Encounter Details Date Type Department Care Team Description 02/04/2021 Ancillary Procedure Radiology Library Zenaida Gupta Breast at [facility] SUPERINTENDENT calcification, right [facility] [address] [place] [id number] [phone] Social History Tobacco Use Types Packs/Day Years [...] Name Priority Date/Time Associated Diagnosis Comme nts REQUEST FOR 2ND Routine 02/04/2021 9:00 AM Breast Result s for this READ MAMMO EDT calcification, right procedu re are in the results section. documented in this encounter Results Request for 2nd read Mammo (02/04/2021 9:00 AM EDT) Anatomical Region Laterality Modality SO Specimen (Source) Anatomical Location Collection Method / Collectio n Time Received Time / Laterality Volume Impressions 02/04/2021 9:10 AM EDT Agree with recommendation for continued mammographic surveillance of probably benign calcifications in the right lower central breast. BI-RADS Category 3: Probably Benign Find ing. Short interval follow-up or continued surveillance mammography Please note: The interpretation of the [facility] Breast Imaging Radiologist subspecialist may differ fro m the original radiologist's interpretation. This is usually not due to a deficiency of the original interpreting radiologist, rather due to the greater skill level afforded by sub-specialization in the field and/or r easonable variations in interpretations. If you have a concern regarding the D- interpretation you may contact the [facility] Breast Sustainable Communities Designer Office at . Thank you for letting us participate in the care of this patient. ??If you are a health care provider and have any questi ons regarding this report, please contact the number below. ??For patients who have questions please contact the health home health care case manager that requested your imaging first. ? Electronically signed by: Kim burks MD, [facility] ([phone]), at 02/04/2021 9:10 AM Narrative 02/04/2021 9:10 AM EDT INTERPRETATION OF OUTSIDE BREAST IMAGING I have been asked to consult on this pat ient by ??Zenaida Gupta APRN because he/she believes a review of this study m ay change or alter the care of this patient. STUDIES FROM: [facility] DATES: 11/12/2020 CLINICAL HISTORY: 6 MONTH FOLLOW UP IMAG ING?; Sending Institution [facility]; Date of exam 60; I believe a reinterpretation of this exam may alter care of Patient. Yes ; STABLE CALCS SEEN IN RIGHT BREAST. CAT 3.. ?? COMPARISONS: This study was compared with prior image s. Specifically 05/09/2020, 06/17/2015 FINDINGS: Spot compression magnification CC, MLO a nd cc views were obtained of the right breast. 2-D direct digital capture, 3-D tomosynthesis and computer aided detection (CAD) were used. There are sca ttered areas of fibroglandular density. Calcifications in the right lower centra l breast are again noted. The distribution favors this subtending an o chele structure and this favors early rim calcification. No developing density is identified. Scattered benign fat necrosis is noted. Procedure Note Kim Schofield MD - 02/04/2021Form atting of this note might be different from the original. INTERPRETATION OF OUTSIDE BREAST IMAGING I have been asked to consult on this pat ient by Zenaida Gupta APRN because he/she believes a review of this study m ay change or alter the care of this patient. STUDIES FROM: [facility] DATES: 11/12/2020 CLINICAL HISTORY: 6 MONTH FOLLOW UP IMAG ING?; Sending Institution [facility]; Date of exam 60; I believe a reinterpretation of this exam may alter care of Patient. Yes ; STABLE CALCS SEEN IN RIGHT BREAST. CAT 3.. COMPARISONS: This study was compared with prior image s. Specifically 05/09/2020, 06/17/2015 FINDINGS: Spot compression magnification CC, MLO a nd cc views were obtained of the right breast. 2-D direct digital capture, 3-D tomosynthesis and computer aided detection (CAD) were used. There are sca ttered areas of fibroglandular density. Calcifications in the right lower centra l breast are again noted. The distribution favors this subtending an o chele structure and this favors early rim calcification. No developing density is identified. Scattered benign fat necrosis is noted. IMPRESSION Agree with recommendation for continued mammographic surveillance of probably benign calcifications in the right lower central breast. BI-RADS Category 3: Probably Benign Find ing. Short interval follow-up or continued surveillance mammography Please note: The interpretation of the [facility] Breast Imaging Radiologist subspecialist may differ fro m the original radiologist's interpretation. This is usually not due to a deficiency of the original interpreting radiologist, rather due to the greater skill level afforded by sub-specialization in the field and/or r easonable variations in interpretations. If you have a concern regarding the D- interpretation you may contact the [facility] Breast Sustainable Communities Designer Office at . Thank you for letting us participate in the care of this patient. If you are a health care provider and have any questi ons regarding this report, please contact the number below. For patients w ho have questions please contact the health home health care case manager that requested your imaging first. Electronically signed by: Kim burks MD, [facility] ([phone]), at 02/04/2021 9:10 AM Zenaida Gupta APRN IMG OUTSIDE INTERPRETATION O RDERABLES documented in this encounter Visit Diagnoses Diagnosis Breast calcification, right Other (abnormal) findings on radiologica l examination of breast documented in this encounter Care Teams Assistant Professor Of Physics Relationship Specialty Start Date End Date Zenaida Gupta APRN PCP - General Family Medicine 01/17/19 [place] [address] documented as of this encounter
--- OUTSIDE RECORDS SUMMARY | 2022-05-06 08:17 | XMS_ITS | Encounter Summary ---
:1960 Author Organization [facility] [address] Care Team Providers Name Role Phone Zenaida Gupta APRN Primary Care Provider Encounter Details Date Type Department Care Team Description 02/04/2021 Telephone Hematology [place] [address] Social History Tobacco Use Types Packs/Day Years Used Date Smoking Tobacco: Every Day Cigarettes 1 e-Cigarettes Smokeless Tobacco: Never Alcohol Use Standard Drinks/Week Comments Yes 0 (1 standard drink = 0.6 oz pure alcoho l) very rare Sex Assigned at Date Recorded Not on file documented as of this encounter Miscellaneous Notes Telephone Encounter - Vy Kang - 02/04/2021 7:30 AM EDT Shraddha Chavez 1960 [id number] Referring provider: Zenaida Gupta APRN Date of Referral: 02.04.2021 Please review outside breast imaging dated: 11.12.2020 Reason for exam and clinical history: stable calcs seen in right breast Category: 3 Questions to be answered: 6 month follow up imaging? Sending Institution: [id number] Patient would like treatment at: [facility] Call pt at: documented in this encounter Plan of Treatment Not on filedocumented as of this encounter Visit Diagnoses Not on filedocumented in this encounter Care Teams Pocket Assembler Relationship Specialty Start Date End Date Zenaida Gupta APRN PCP - General Family Medicine 01/17/19 [place] [address] documented as of this encounter
--- OUTSIDE RECORDS SUMMARY | 2022-05-06 08:17 | XMS_ITS | Encounter Summary ---
:1960 [place] [address] Care Team Providers Name Role Phone Unknown Primary Care Provider Unavailable Encounter Details Date Type Department Care Team Description 01/06/2019 Notes Only Pain Management at [facility] James Nelson MD [facility] [place] [address] PAIN CLINIC [phone] [place], [place] [address] (Wo rk) Social History Tobacco Use Types Packs/Day Years Used Date Smoking Tobacco: Every Day Cigarettes 1 e-Cigarettes Smokeless Tobacco: Never Alcohol Use Standard Drinks/Week Comments Yes 0 (1 standard drink = 0.6 oz pure alcoho l) very rare Sex Assigned at Date Recorded Not on file documented as of this encounter Progress Notes James Nelson MD - 01/06/2019 7:08 AM EDT Shraddha Chavez :1960 As follows are results of the Analgesic Implantation Committee Meeting held on 01/06/19, at [facility] to evaluate the above named patient for trial and implantation of SCS. TheAnalgesic Implantation Committee is attended by Pain Medicine and Behavioral Medicine Specialists. Ms. Chavez was not approved by the Analgesic Implantation Committee to proceed to trial and implantation for above named procedure. Ms. Chavez received 10 poor votes. Notes from meeting include: There were no medication contraindications identified. There was no imaging contraindication identified. There were no psychologic contraindications identified. Patient is a smoker - panel wants patients to stop smoking before implantation. FRP may be a better option for the patient. documented in this encounter Plan of Treatment Not on filedocumented as of this encounter Visit Diagnoses Not on filedocumented in this encounter Care Teams Business Insight And Analytics Manager Relationship Specialty Start Date End Date Unknown PCP - General 01/05/19 01/16/19 None documented as of this encounter
--- OUTSIDE RECORDS SUMMARY | 2022-05-06 08:17 | XMS_ITS | Encounter Summary ---
:1960 [place] [address] Care Team Providers Name Role Phone Unknown Primary Care Provider Unavailable Encounter Details Date Type Department Care Team Description 01/12/2019 Ancillary Procedure Radiology Library at JuddJermaine mac [facility] [place] [address] [place] [address] NEUROSURGERY [phone] [place], [place] [address] (Wo rk) Social History Tobacco [...] Associated Diagnosis Comme nts FILM LIBRARY Routine 01/12/2019 12:00 AM Results for this STORAGE ONLY CT EDT procedure ar e in CHEST the results section. documented in this encounter Results Film Library- Storage Only CT Chest (01/12/2019 12:00 AM EDT) Specimen (Source) Anatomical Location Collection Method / Collectio n Time Received Time / Laterality Volume Narrative RAD - 01/13/2019 11:54 AM EDT This exam is auto-finalizing. It's purpo se is for storage only. Jaswinder Whaley MD IMG FILM LIBRARY ORDERABLES Performing Organization Address City/State/ZIP Code Phon e Number RAD [place], [place] documented in this encounter Visit Diagnoses Not on filedocumented in this encounter Care Teams Management Tech Relationship Specialty Start Date End Date Unknown PCP - General 01/05/19 01/16/19 None documented as of this encounter
--- OUTSIDE RECORDS SUMMARY | 2022-05-06 08:17 | XMS_ITS | Encounter Summary ---
:1960 Author Organization [facility] [place] [address] Care Team Providers Name Role Phone Unknown Primary Care Provider Unavailable Encounter Details Date Type Department Care Team Description 01/09/2019 Ancillary Procedure [facility] UND[facility] SOLICITATION DIRECTOR [facility] [address] [place] [id number] [phone] (Wo rk) Social History Tobacco Use Types [...] Associated Diagnosis Comme nts FILM LIBRARY Routine 01/09/2019 12:00 AM Results for this STORAGE ONLY MAMMO EDT procedure are in the results section. documented in this encounter Results Film Library- Storage Only Mammo (01/09/2019 12:00 AM EDT) Specimen (Source) Anatomical Location Collection Method / Collectio n Time Received Time / Laterality Volume Narrative [facility] - 02/03/2021 3:44 PM EDT This exam is auto-finalizing. It's purpo se is for storage only. Zenaida Gupta APRN IMG FILM LIBRARY ORDERABLES Performing Organization Address City/State/ZIP Code Phon e Number RAD [place], [place] documented in this encounter Visit Diagnoses Not on filedocumented in this encounter Care Teams Lime Plant Operator Relationship Specialty Start Date End Date Unknown PCP - General 01/05/19 01/16/19 None documented as of this encounter
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
--- OUTSIDE RECORDS SUMMARY | 2022-05-06 08:17 | XMS_ITS | Encounter Summary ---
:1960 Author Organization [facility] [place] [address] Care Team Providers Name Role Phone Unknown Primary Care Provider Unavailable Encounter Details Date Type Department Care Team Description 01/16/2019 Telephone Radiation Oncology at Juana Ibrahim RN [address] [phone] Social History Tobacco Use Types Packs/Day Years Used Date Smoking Tobacco: Every Day Cigarettes 1 e-Cigarettes Smokeless Tobacco: Never Alcohol Use Standard Drinks/Week Comments Yes 0 (1 standard drink = 0.6 oz pure alcoho l) very rare Sex Assigned at Date Recorded Not on file documented as of this encounter Miscellaneous Notes Telephone Encounter - Juana Ibrahim RN - 01/16/2019 12:46 PM EDT Error( duplicate encounter) documented in this encounter Plan of Treatment Not on filedocumented as of this encounter Visit Diagnoses Not on filedocumented in this encounter Care Teams Dehydrogenation Supervisor Relationship Specialty Start Date End Date Unknown PCP - General 01/05/19 01/16/19 None documented as of this encounter
--- OUTSIDE RECORDS SUMMARY | 2022-05-06 08:17 | XMS_ITS | Encounter Summary ---
:1960 Author Organization [facility] [place] [address] Care Team Providers Name Role Phone Noris Tuttle APRN Primary Care Provider Reason for Visit Reason Onset Date Comments Medication Refill 07/06/2018 Tamoxifen Medication Refill 07/12/2018 Encounter Details Date Type Department Care Team Description 07/06/2018 Refill Hematology/Oncology at Chencho Haney APRN Malignant neoplasm of [facility] [address] female breast, [address] [facility] INTERNAL MEDICINE unspecified estrogen [place] [phone] receptor status, [id number] unspecified laterality, unspecifi ed [...] this encounter Miscellaneous Notes Telephone Encounter - Audra Cisneros RN - 07/06/2018 9:42 AM EST ----- Message from Aubrey London sent at 07/06/2018 9:34 AM EST ----- Regarding: Pt looking for tamoxifen refill Good Morning, Shraddha called and said that she needs a refill of her tamoxifen to be filled at the [facility] in [place]. Aubrey Pierce documented in this encounter Plan of Treatment Not on filedocumented as of this encounter Visit Diagnoses Diagnosis Malignant neoplasm of female breast, uns pecified estrogen receptor status, unspecified laterality, unspecified site of breast documented in this encounter Care Teams Security Checker Relationship Specialty Start Date End Date Noris Tuttle APRN PCP - General Family Medicine 01/28/17 01/04/19 documented as of this encounter
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
--- OUTSIDE RECORDS SUMMARY | 2022-05-06 08:17 | XMS_ITS | Encounter Summary ---
:1960 Author Organization [facility] [place] [address] Care Team Providers Name Role Phone Zenaida Gupta APRN Primary Care Provider Encounter Details Date Type Department Care Team Description 05/09/2020 Ancillary Procedure [facility] [address] [place] [phone] (Wo rk) Social History Tobacco Use Types [...] Associated Diagnosis Comme nts FILM LIBRARY Routine 05/09/2020 12:00 AM Results for this STORAGE ONLY MAMMO EST procedure are in the results section. documented in this encounter Results Film Library- Storage Only Mammo (05/09/2020 12:00 AM EST) Specimen (Source) Anatomical Location Collection Method / Collectio n Time Received Time / Laterality Volume Narrative [facility] - 02/03/2021 3:45 PM EDT This exam is auto-finalizing. It's purpo se is for storage only. Zenaida Gupta APRN IMG FILM LIBRARY ORDERABLES Performing Organization Address City/State/ZIP Code Phon e Number [place], [place] documented in this encounter Visit Diagnoses Not on filedocumented in this encounter Care Teams Machine Binder Stripper Relationship Specialty Start Date End Date Zenaida Gupta APRN PCP - General Family Medicine 01/17/[address] [place] [address] [place] [address] documented as of this encounter
--- OUTSIDE RECORDS SUMMARY | 2022-05-06 08:17 | XMS_ITS | Encounter Summary ---
:1960 Author Organization [facility] [place] [address] Care Team Providers Name Role Phone Zenaida Gupta APRN Primary Care Provider Reason for Visit Reason Onset Date Comments Other 02/13/2019 Encounter Details Date Type Department Care Team Description 02/13/2019 Telephone Hematology/Oncology at Jennifer Styles RN Other [place] [phone] Social History Tobacco Use Types Packs/Day Years Used Date Smoking Tobacco: Every Day Cigarettes 1 e-Cigarettes Smokeless Tobacco: Never Alcohol Use Standard Drinks/Week Comments Yes 0 (1 standard drink = 0.6 oz pure alcoho l) very rare Sex Assigned at Date Recorded Not on file documented as of this encounter Miscellaneous Notes Telephone Encounter - Jennifer Becerra RN - 02/13/2019 9:13 AM EDT Michela called wondered who ordered her blood thinner she did not recognize name on the bottle. I toldher it must be someone from her PCP office and to call there. She agreed with plan. documented in this encounter Plan of Treatment Not on filedocumented as of this encounter Visit Diagnoses Not on filedocumented in this encounter Care Teams Magnetic Tape Winder Relationship Specialty Start Date End Date Zenaida Gupta APRN PCP - General Family Medicine 01/17/19 [address] [place] [address] documented as of this encounter
--- OUTSIDE RECORDS SUMMARY | 2022-05-06 08:17 | XMS_ITS | Encounter Summary ---
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 COMPLAINT SERVICE right breast in [address] [place] [address] female, estrogen [place], [place] receptor positive, [phone] RADIATION ONCOLOGY unspecified site of [phone] [place] [phone] breast Social History Tobacco Use Types Packs/Day Years Used Date Smoking Tobacco: Every Day Cigarettes 1 e-Cigarettes Smokeless Tobacco: Never Alcohol Use Standard Drinks/Week Comments Yes 0 (1 standard drink = 0.6 oz pure alcoho l) very rare Sex Assigned at Date Recorded Not on file documented as of this encounter Last Filed Vital Signs Vital Sign Reading Time Taken Comments Blood Pressure 140/72 04/15/2018 10:48 AM EST Pulse 80 04/15/2018 10:48 AM EST Temperature 36.6 ??C (97.9 ??F) 04/15/2018 10:48 AM EST Respiratory Rate 18 04/15/2018 10:48 AM EST Oxygen Saturation 99% 04/15/2018 10:48 AM EST Inhaled Oxygen Concentration - - Weight 94.1 kg (207 lb 6.4 oz) 04/15/2018 10:48 AM EST Height 160 cm (5' 3) 04/15/2018 10:48 AM EST Body Mass Index 36.74 04/15/2018 10:48 AM EST documented in this encounter Patient Instructions Patient InstructionsNayeli Acosta APRN - 04/15/2018 11:00 AM EST She will return in one year for followup. documented in this encounter Progress Notes Nayeli Acosta APRN - 04/15/2018 11:00 AM EST HPI Right breast cancer: stage I, pT1C pN0 M0 IDC w/lobular extension, high gr, s/p R partial mastectomy, sentinel lymphadenectomy (one node microscopically positive) & B reduction mammoplasty, ERPR+;s/p adjuvant AC x 4 and radiation therapy which was completed on 03/10/2010. Did not tolerate Aromatase inhibitor (myalgias) well but continued for 5yrs and plans on continuing on Tamoxifen until the 10yr rojelio (per pt) Radiation therapy detail: Target location: Right breast Total dose: 6100 cGy Fraction dose; 180 cGy for 25 fractions followed by 200 cGy boost to surgical bed for 8 fractions. Dates of treatment: 01/22/2010 through 03/10/2010. Total fractions: 33 ?? --patient has had a survivor care plan?? 12/31/2010--see [facility] scanned document. ?? 2. AVM --SRS on 08/12/2010 Target location: Left AVM Total dose: 1800 cGy SUBJECTIVE: Shraddha comes in today for followup now 8 yrs from dx. She continues to deal with her back pain whichshe has had for several years now. This is her most pressing problem right now. She had a mammogram in December that was FARIDEH. She is otherwise well. REVIEW OF SYSTEMS: Otherwise quite negative. Current Outpatient Medications on File Prior to Visit Medication Sig Dispense Refill ??? VENTOLIN HFA 90 mcg/actuation HFA Aerosol Inhaler inhale 2 puffs by mouth BEFORE EXERCISE NEEDED 0 ??? baclofen (LIORESAL) 10 mg Tablet take 1 tablet by mouth three times a day if needed 0 ??? B-complex with vitamin C Tablet Take by mouth. ??? cefdinir (OMNICEF) 300 mg Capsule take 1 capsule by mouth every 12 hours for 10 days 0 ??? CHOLECALCIFEROL, VITAMIN D3, 2,000 unit Capsule 0 ??? fexofenadine (DANIELA) 180 mg Tablet 0 ??? letrozole (FEMARA) 2.5 mg Tablet Take by mouth. ??? omeprazole (PRILOSEC) 20 mg Capsule, Delayed Release(E.C.) Take 40 mg by mouth. ??? prochlorperazine (COMPAZINE) 10 mg Tablet Take 10 mg by mouth. ??? tamoxifen (NOLVADEX) 20 mg Tablet Take 1 tablet by mouth daily. 90 tablet 3 ??? VITAMINS B COMPLEX Capsule take 1 capsule by mouth once daily 90 capsule 3 ??? magnesium oxide (MAG-OX) 400 mg Tablet Take 400 mg by mouth daily. ??? loratadine (CLARITIN) 10 mg Tablet Take 10 mg by mouth daily. ??? dexlansoprazole (DEXILANT) 60 mg Cap, Delayed Rel., Multiphasic Take 60 mg by mouth daily. ??? amoxicillin (AMOXIL) 500 mg Capsule TAKE 4 CAPSULES BY MOUTH ONCE, 1 ARNULFO BEFORE DENTAL APPOINTMENTS 0 No current facility-administered medications on file prior to visit. Allergies Allergen Reactions ??? Latex Itching and [...] ??? Lidocaine Hcl ??? Mobic [Meloxicam] rash Past medical history and social history are reviewed and otherwise unchanged Review of Systems Constitutional: Negative for fever, chills, activity change, fatigue and unexpected weight change. HENT: Negative for sore throat, mouth sores and trouble swallowing. Eyes: Negative. Respiratory: positive for cough, shortness of breath and wheezing on exertion- she started smoking again Cardiovascular: Negative for chest pain, palpitations and leg swelling. Gastrointestinal: still positive for nausea, but no vomiting, abdominal pain, diarrhea, constipationand abdominal distention. Genitourinary: Negative for dysuria and difficulty urinating. Musculoskeletal: left shoulder pain lower back pain. Skin: Negative. Neurological: Chronic Headaches. Hematological: Negative for adenopathy. General: AAAx3, in NAD Head: Normocephalic, without obvious abnormality, atraumatic Eyes: PERRL, conjunctiva/corneas clear, EOM's intact Nose: Nares normal, septum midline Throat: Lips, mucosa, and tongue normal; teeth and gums normal Neck: Supple, symmetrical, trachea midline, no adenopathy Back: Symmetric, no curvature, ROM normal. Lungs: Clear to auscultation bilaterally, respirations unlabored Breast exam Normal bilat Heart: Regular rate and rhythm, S1, S2 normal, no murmur, rub or gallop Abdomen: Soft, non-tender, no masses, no organomegaly Extremities: Extremities normal, atraumatic, no cyanosis or edema Skin: Skin color, texture, turgor normal, no rashes or lesions Lymph nodes: Cervical, supraclavicular, and axillary nodes normal Neurologic: Normal; nl patellar reflexes; executive services administrator grossly intact Vitals BP 140/72 (Patient Position: Sitting) Pulse 80 Temp 36.6 ??C (97.9 ??F) (Oral) Resp 18 Ht 160 cm (5' 3) Wt 94.1 kg (207 lb 6.4 oz) SpO2 99% BMI 36.74 kg/m?? Weight Wt Readings from Last 3 Encounters: 04/15/18 94.1 kg (207 lb 6.4 oz) 04/04/18 94.3 kg (208 lb) 11/25/17 95.3 kg (210 lb) Mammogram at [facility] on 12/09/17 negative with benign findings - due again in December 2018. Lab: None done today ASSESSMENT/PLAN: Shraddha is doing well with no evidence of recurrent breast cancer now 8 years after her primary treatment and continuing hormone treatment with tamoxifen. She is most concerned about her back pain whichshe has been dealing with for a long time with no real relief. She was evaluated by Dr Saez who feltthat there was not a good surgical option. She continues to be followed by the pain clinic. She is doing well with no apparent recurrence and no sx of her AVM. She will continue with yearly visits for now. Nayeli Acosta APRN [facility] Nurse Practitioner Hematology/Oncology Medical Oncology follow-up is based on ASCO guidelines which indicates physical examinations should be performed every 3 to 6 months for the first 3 years; every 6 to 12 months for years 4 and 5 and annually thereafter. Http://jco.ascopubs.org/content/04/01/[email or web address]/[email or web address].expansion.html Recommendations for Breast Cancer Follow-Up and Management in the Adjuvant Setting Mode of Surveillance Recommendation* RECOMMENDED ?History/physical examination All women should have a careful history and physical examination every3 to 6 mo for the first 3 yr after primary therapy, then every 6 to 12 mo for the next 2 yr, and then annually. The history and physical examination should be performed by a physician??? experienced in the surveillance of patients with cancer and in breast examination. Coordination of care The risk of breast cancer recurrence continues through 15 yr after primary treatment and beyond. Continuity of care for patients with breast cancer is recommended and should be performed by a physician experienced in the surveillance of patients with cancer and in breast examination, including the examination of irradiated breasts. Follow-up by a PCP seems to lead to the same health outcomes as specialist follow-up with good patient satisfaction. If a patient with early-stage breast cancer (tumor <5 cm and <4 positive nodes) desires follow-up exclusively by a PCP, care may be transferred to the PCP approximately 1 yr after diagnosis. If care is transferred to a PCP, both the PCP and the patient should be informed of the appropriate follow-up and management strategy. Re-referral for further oncology assessment may be considered, as needed, especially for patients who are receiving adjuvant endocrine therapy. NOT RECOMMENDED ?Routine blood tests CBC testing is not recommended for routine breast cancer surveillance. Automated chemistry studies are not recommended for routine breast cancer surveillance. ?Imaging studies Chest x-rays are not recommended for routine breast cancer surveillance. Bone scans are not recommended for routine breast cancer surveillance. Ultrasound of the liver is not recommended for routine breast cancer surveillance. CT scanning is not recommended for routine breast cancer surveillance. FDG-PET scanning is not recommended for routine breast cancer surveillance. Breast MRI is not recommended for routine breast cancer surveillance. Breast cancer tumor marker testing The use of CA 15-3 or CA 27.29 is not recommended for routine surveillance of patients with breast cancer after primary therapy. CEAtesting is not recommended for routine surveillance of patients with breast cancer after primarytherapy. documented in this encounter Plan of Treatment Not on filedocumented as of this encounter Visit Diagnoses Diagnosis Malignant neoplasm of right breast in fe male, estrogen receptor positive, unspecified site of breast documented in this encounter Care Teams Leather Sponger Relationship Specialty Start Date End Date Noris Tuttle APRN PCP - General Family Medicine 01/28/17 01/04/19 documented as of this encounter
--- OUTSIDE RECORDS SUMMARY | 2022-05-06 08:17 | XMS_ITS | Clinical Summary ---
:1960 Author Organization [facility] [place] [address] Care Team Providers Name Role Phone Zenaida Gupta APRN Primary Care Provider Allergies Active Allergy Reactions Severity Noted Date Comments Adhesive Tape High Localized [place] ction Codeine Phosphate Hives, Nausea And High Vomiting, Rash Cortisone Medium Hot all over / Fever Doxycycline Nausea And Vomiting High 04/15/2018 Hydrocodone-Acetaminophen Nausea And Vomiting High Hydromorphone Nausea And Vomiting High Latex Itching, Rash High Lidocaine Hcl 01/27/2012 Meloxicam 08/31/2013 rash Morphine Sulfate Nausea And Vomiting High Nsaids (Non-Steroidal Nausea Only, Rash High p t tolerates Anti-Inflammatory Drug) ibup rofen Oxycodone-Acetaminophen Nausea And Vomiting High Has n/v if taken on empty stomach. Promethazine Hcl Nausea And Vomiting High Sulfa (Sulfonamide Hives Medium Antibiotics) Ketorolac Tromethamine Hives High Tramadol Nausea And Vomiting Medium Medications Medication Sig Dispensed Refills Start Date End Date Status dexlansoprazole Take 60 mg by 0 Active (DEXILANT) 60 mg Cap, mouth daily. Delayed Rel., Multiphasic magnesium oxide (MAG-OX) Take 400 mg by 0 Active 400 mg Tablet mouth daily. loratadine (CLARITIN) 10 Take 10 mg by 0 Active mg Tablet mouth daily. VITAMINS B COMPLEX take 1 capsule 90 capsule 3 03/19/2017 Active CapsuleIndications: by mouth once Malignant neoplasm daily involving both nipple and areola of right breast in female Additional Information Patient not taking. Reported on 02/12/2021 VENTOLIN HFA 90 inhale 2 puffs by mouth 0 11/20/2017 Active mcg/actuation HFA Aerosol BEFORE EXERCISE Inhaler NEEDED amoxicillin (AMOXIL) 500 mg TAKE 4 CAPSULES BY MOUTH 0 12/02/2017 Active Capsule ONCE, 1 ARNULFO BEFORE DENTAL APPOINTMENTS baclofen (LIORESAL) 10 mg take 1 tablet by mouth 0 0 02/14/2018 Active Tablet three times a day if needed B-complex with vitamin C Take by mouth. 0 Active Tablet cefdinir (OMNICEF) 300 mg take 1 capsule by mouth 0 04/01/2018 Active Capsule every 12 hours for 10 days CHOLECALCIFEROL, VITAMIN D3, 0 02/20/2018 Active 2,000 unit Capsule fexofenadine (DANIELA) 180 0 03/20/2018 Active mg Tablet omeprazole (PRILOSEC) 20 mg Take 40 mg by mouth. 0 Active Capsule, Delayed Release(E.C.) prochlorperazine (COMPAZINE) Take 1 tablet by mouth 15 tablet 11 08/19/2018 Active 10 mg Tablet every 6 hours as needed for Nausea. Additional Information Patient not taking. Reported on 02/12/2021 Active Problems Problem Noted Date Radiculopathy of lumbar region 02/15/2018 Malignant neoplasm of central portion of right breast in female, estrogen 12/23/2015 receptor positive Posterior tibial tendinitis of left leg 05/30/2015 Peroneal tendonitis 05/30/2015 CERVANTES (headache) 03/23/2014 Overview: November 2012: H/o breast CA s/p sx, chemo, RT, L tempo ral AVM s/p SRS, radiation necrosis, and headache Re-establishment of care for CERVANTES mgt Migrainous chronic daily headache, possi orion worsening from vasogenic edema evident on MRI. Was not on any ppx or prn CERVANTES meds --> started on topamax continue zofran prn nausea, can consider switching to hydroxyzine in the future can consider magnesium & B2 supplement patient will consider ONB for the next v isit Jul 2013: clinic FU & ONB ?? CERVANTES improved since hyperbaric treatmen ts ?? Vasogenic edema improved on MRI Feb 2013 ?? No med changes (pt not interested), i nterested in ONB --> performed ?? RTC PRN or Q2-3 months for ONB Tachycardia, unspecified 10/09/2013 Seborrheic keratosis 04/25/2013 Back pain, chronic 04/13/2013 Radiation injury of brain 08/26/2012 Overview: Has MRI findings consistent with radiati on-induced brain injury. Received 20.4 Gy. Hx of total knee replacement 08/26/2012 Overview: Bilateral Allergy, drug 10/22/2011 AVM (arteriovenous malformation) 01/23/2011 Overview: Left temporal lobe, received stereotacti c radiosurgery. Treatment Intent: curative Treatment Accomplished: On the morning o f 08/12/2010 total of 18 Gy to the target volume at t he 86% isodose line, for a total dose at isocenter of 20.9 Gy. A total of five arc kiran were designed for a total of 245 arc degrees. Excellent coverage was obt ained on the plan, with mean dose to the target volume totaling 20.4 Gy, minimum dose 17.0 Gy, maximum dose 21.1 Gy, and with the conformality index at 2.7. Blurry vision 11/07/2010 Family History Medical History Relation Comments Diabetes Daughter Heart Disease Father Hypertension Father Amblyopia Grandchild Strabismus Grandchild Diabetes Maternal Grandmother Cataracts Mother Heart Disease Mother Hypertension Mother Thyroid Disease Mother Blindness Neg Hx Cancer Neg Hx Glaucoma Neg Hx Macular Degeneration Neg Hx Retinal Detachment Neg Hx Stroke Neg Hx Relation Status Comments Daughter Father Grandchild Maternal Grandmother Mother Social History Tobacco Use Types Packs/Day Years Used Date Smoking Tobacco: Every Day Cigarettes 1 e-Cigarettes Smokeless Tobacco: Never Tobacco Cessation: Ready to Quit: No; Co unseling Given: No Alcohol Use Standard Drinks/Week Comments Yes 0 (1 standard drink = 0.6 oz pure alcoho l) very rare Sex Assigned at Date Recorded Not on file Last Filed Vital Signs Vital Sign Reading Time Taken Comments Blood Pressure 134/81 02/12/2021 10:45 AM EDT Pulse 70 02/12/2021 10:45 AM EDT Temperature 36.7 ??C (98.1 ??F) 01/23/2019 8:05 AM EDT Respiratory Rate 18 02/12/2021 10:45 AM EDT Oxygen Saturation 99% 02/12/2021 10:45 AM EDT Inhaled Oxygen Concentration - - Weight 91.4 kg (201 lb 9.6 oz) 02/12/2021 10:45 AM EDT Height 159.2 cm (5' 2.68) 01/23/2019 8:05 AM EDT Shoes on Body Mass Index 36.08 01/23/2019 8:05 AM EDT Plan of Treatment Health Maintenance Due Date Last Done Comments Covid-19 Vaccine (#1) 1960 Pneumococcal Vaccine: At-Risk 1965 5-64yrs (1 - PCV) HIV screen 1977 Hepatitis C Screening 1977 Lipid Screening 1977 Tdap adult 1978 Tetanus vaccine 1978 HPV test 1989 PAP Smear 1989 Breast Cancer Share Decision 1999 Needed Colonoscopy 01/29/2004 Zoster vaccine (1 of 2) 2009 Diabetes Screening (HgbA1C or 08/12/2013 08/12/2010, 2010 Glucose) Breast Cancer screening 06/13/2016 06/13/2014, 06/29/2013, 06/20/2012, Additional history exists Influenza (Flu) vaccine (1 of 1 - 02/05/2022 Influenza standard series) Insurance Payer Benefit Plan / Subscriber ID Effective Dates Phone Addre ss Type Group MEDICARE MEDICARE PART [id number] 2011-Prese [id number] [place] [address] [place] [id number] 2019-Prese [phone] [address] [place] [address] Advance Directives Documents on File Type Date Recorded Patient Gang Mower Operator Explanati on Advance Directives and Living 08/06/2010 10:24 AM Will Care Teams Transit Mix Operator Relationship Specialty Start Date End Date Zenaida Gupta APRN PCP - General Family Medicine 01/17/19 [address] [facility] [place] [address]
--- OUTSIDE RECORDS SUMMARY | 2022-05-06 08:17 | XMS_ITS | Encounter Summary ---
:1960 Author Organization [facility] [address] Care Team Providers Name Role Phone Noris Tuttle APRN Primary Care Provider Encounter Details Date Type Department Care Team Description 05/09/2018 Telephone Radiation Oncology at LilaEmma purdy RN [address] [phone] Social History Tobacco Use Types Packs/Day Years Used Date Smoking Tobacco: Every Day Cigarettes 1 e-Cigarettes Smokeless Tobacco: Never Alcohol Use Standard Drinks/Week Comments Yes 0 (1 standard drink = 0.6 oz pure alcoho l) very rare Sex Assigned at Date Recorded Not on file documented as of this encounter Miscellaneous Notes Telephone Encounter - Emma Bro RN - 05/09/2018 6:02 PM EST Telephone call returned to patient. She reports that she has been having increased left sided headache pressure for the last 2-3 days. It is associated with nausea without vomiting. She does continue to take zofran prn. She also notes that her left eye duct seems plugged. Denies issues with the right side. Denies any acute vision changes or other new changes. She has been taking nico daily. She is interested in seeing Domonique James APRN for this complaint and wonders about needing another MRI. I let her know that I will update Domonique with this note. Instructed her that should her headache and nausea worsen acutely or should she develop any additional acute symptoms she should go to nearest ED for evaluation. She verbalized good understanding of this and is agreeable. Telephone Encounter - Emma Bro RN - 05/09/2018 6:02 PM EST ----- Message from Jessica Garcia sent at 05/09/2018 4:30 PM EST ----- Regarding: HEADACHES ? MRI Shraddha called stating she is having headaches and worsening pain in her head. She asked if she should be having an MRI and wants to see Domonique. I can get her scheduled with a provider but she would appreciate a call back. Kari Lopez documented in this encounter Plan of Treatment Not on filedocumented as of this encounter Visit Diagnoses Not on filedocumented in this encounter Care Teams Braid Maker Relationship Specialty Start Date End Date Noris Tuttle APRN PCP - General Family Medicine 01/28/17 01/04/19 documented as of this encounter
--- OUTSIDE RECORDS SUMMARY | 2022-05-06 08:17 | XMS_ITS | Encounter Summary ---
:1960 Author Organization [facility] [place] [address] Care Team Providers Name Role Phone Zenaida Gupta APRN Primary Care Provider Reason for Visit Reason Comments Medication Refill Encounter Details Date Type Department Care Team Description 03/19/2019 Refill Hematology/Oncology at Chencho Haney APRN Malignant neoplasm of [facility] [address] female breast, [address] INTERNAL MEDICINE unspecified estrogen [place] [phone] receptor status, [id number] unspecified laterality, unspecifi ed site of breast [...] breast documented in this encounter Care Teams Loaders Relationship Specialty Start Date End Date Zenaida Gupta APRN PCP - General Family Medicine 01/17/[address] [place] [address] documented as of this encounter
--- OUTSIDE RECORDS SUMMARY | 2022-05-06 08:17 | XMS_ITS | Encounter Summary ---
:1960 Author Organization [facility] [place] [address] Care Team Providers Name Role Phone Noris Tuttle APRN Primary Care Provider Encounter Details Date Type Department Care Team Description 07/08/2018 [facility] [place] [place] [address] Social History Tobacco Use Types Packs/Day Years Used Date Smoking Tobacco: Every Day Cigarettes 1 e-Cigarettes Smokeless Tobacco: Never Alcohol Use Standard Drinks/Week Comments Yes 0 (1 standard drink = 0.6 oz pure alcoho l) very rare Sex Assigned at Date Recorded Not on file documented as of this encounter Miscellaneous Notes Telephone Encounter - Jeanette Ashby RN - 07/08/2018 2:50 PM EST Incoming call from Leigha CRYSTAL at [facility] pain clinic, reminding you that this patient has had someImages sent to our Radiology department for you to view prior to procedure. Advised Leigha that I would relay this information to you via In Basket. Thanks Jeanette documented in this encounter Plan of Treatment Not on filedocumented as of this encounter Visit Diagnoses Not on filedocumented in this encounter Care Teams Chief Revenue Officer Relationship Specialty Start Date End Date Noris Tuttle APRN PCP - General Family Medicine 01/28/17 01/04/19 documented as of this encounter
--- OUTSIDE RECORDS SUMMARY | 2022-05-06 08:18 | XMS_ITS | Encounter Summary ---
:1960 Author Organization [facility] [place] [address] Care Team Providers Name Role Phone Michela Stevenson APRN Primary Care Provider Reason for Visit Reason Comments Medication Refill Encounter Details Date Type Department Care Team Description 04/04/2015 [facility] [address] [place] [address] [place] [address] [phone] (Wo rk) Social History Tobacco Use Types Packs/Day Years Used Date Smoking Tobacco: Every Day Cigarettes 0.5 37 Smokeless Tobacco: Never Comments: Smoking about 5 cigarettes a d ay Alcohol Use Standard Drinks/Week Comments Yes 0 (1 standard drink = 0.6 oz pure alcoho l) very rare Sex Assigned at Date Recorded Not on file documented as of this encounter Plan of Treatment Not on filedocumented as of this encounter Visit Diagnoses Not on filedocumented in this encounter Care Teams Supervisor Sanding Relationship Specialty Start Date End Date Michela Stevenson APRN PCP - General 04/29/10 06/07/16 documented as of this encounter
--- OUTSIDE RECORDS SUMMARY | 2022-05-06 08:18 | XMS_ITS | Encounter Summary ---
:1960 Author Organization [facility] [place] [address] Care Team Providers Name Role Phone Michela Stevenson [place] Primary Care Provider Encounter Details Date Type Department Care Team Description 03/25/2016 Orders Only [facility] Low tobias k Mar[place] [address] Social History Tobacco Use Types Packs/Day Years Used Date Smoking Tobacco: Every Day Cigarettes 0.5 e-Cigarettes Smokeless Tobacco: Never Alcohol Use Standard Drinks/Week Comments Yes 0 (1 standard drink = 0.6 oz pure alcoho l) very rare Sex Assigned at Date Recorded Not on file documented as of this encounter Progress Notes Cora Florence RN - 03/25/2016 8:44 AM EDT Request for second read of 03/24/16 CT pelvis/sacrum was ordered per Dr. Saez. Images received from [facility] on 03/25/16 awaiting re-read.. 03/26/16 CT Re-read result reviewed by Dr. Saez, there is no evidence of pelvic or sacral fracture, no acute findings. Patient was contacted and informed. She will f/u with Dr. Keith as planned on 04/21/16. documented in this encounter Plan of Treatment Not on filedocumented as of this encounter Results Request For 2nd Read CT Abdomen & Pelvis (03/25/2016 4:11 PM EDT) Anatomical Region Laterality Modality Abdomen, Pelvis Computed Tomography Specimen (Source) Anatomical Location Collection Method / Collectio n Time Received Time / Laterality Volume Impressions 03/25/2016 6:10 PM EDT 1. No evidence of pelvic or sacral fract ure. No acute findings. 2. Degenerative disc and joint changes i n the L5-S1 area with resulting neural foramina stenosis left greater than righ t. Narrative 03/25/2016 6:10 PM EDT EXAMINATION: ??REQUEST FOR 2ND READ CT ABDOMEN AND PELVIS CLINICAL HISTORY: ??CT scan of the pelvi s without contrast. s/p fall ? insufficiency fracture of the pelvis or sacrum done at [facility] on 03/24/16., s/p fall ? insufficiency fracture of the pel vis or sacrum done at [facility] on 03/24/16., What Modality is the exam? CT Scan, Body Part (please add comments as necessary): pelvis/sacrum, I believe a r einterpretation of this exam may alter care of Patient. Yes TECHNIQUE: Helical CT of the abdomen and pelvis was performed. No contrast was administered. COMPARISON: ??Correlated with radiograph from 09/09/2015. FINDINGS: There is no acute fracture, no dislocati on. Sacroiliac joints are well-maintained. Bony mineralization is unremarkable. No suspicious lytic or sclerotic lesions . At L5-S1, there is vacuum disc phenomeno n. Endplate sclerosis and osteophytosis. Facet arthropathy is noted. Combination of disc and facet arthropathy is causing severe left neural foramina stenosis and mild right neural foramina stenosis. Hip joints are intact. There is a small umbilical hernia, valeriy nts fact only and not complicated. Visualized aspects of the bowel are unre markable. Uterus is surgically absent. Soft tissue structures are unremarkable. Procedure Note Nano De Leon MD - 03/25/2016 EXAMINATION: REQUEST FOR 2ND READ CT ABD OMEN AND PELVIS CLINICAL HISTORY: CT scan of the pelvis without contrast. s/p fall ? insufficiency fracture of the pelvis or sacrum done at [facility] on 03/24/16., s/p fall ? insufficiency fracture of the pel vis or sacrum done at [facility] on 03/24/16., What Modality is the exam? CT Scan, Body Part (please add comments as necessary): pelvis/sacrum, I believe a r einterpretation of this exam may alter care of Patient. Yes TECHNIQUE: Helical CT of the abdomen and pelvis was performed. No contrast was administered. COMPARISON: Correlated with radiograph f rom 09/09/2015. FINDINGS: There is no acute fracture, no dislocati on. Sacroiliac joints are well-maintained. Bony mineralization is unremarkable. No suspicious lytic or sclerotic lesions . At L5-S1, there is vacuum disc phenomeno n. Endplate sclerosis and osteophytosis. Facet arthropathy is noted. Combination of disc and facet arthropathy is causing severe left neural foramina stenosis and mild right neural foramina stenosis. Hip joints are intact. There is a small umbilical hernia, valeriy nts fact only and not complicated. Visualized aspects of the bowel are unre markable. Uterus is surgically absent. Soft tissue structures are unremarkable. IMPRESSION 1. No evidence of pelvic or sacral fract ure. No acute findings. 2. Degenerative disc and joint changes i n the L5-S1 area with resulting neural foramina stenosis left greater than righ t. [place] Saez MD IMG OUTSIDE INTERPRETATION O RDERABLES documented in this encounter Visit Diagnoses Diagnosis Low back pain, non-specific Low back pain, non-specific documented in this encounter Care Teams Advertising Associate Relationship Specialty Start Date End Date Michela Stevenson APRN PCP - General 04/29/10 06/07/16 documented as of this encounter
--- OUTSIDE RECORDS SUMMARY | 2022-05-06 08:18 | XMS_ITS | Encounter Summary ---
:1960 Author Organization [facility] [place] [address] Care Team Providers Name Role Phone Michela Stevenson [place] Primary Care Provider Encounter Details Date Type Department Care Team Description 08/31/2014 Orders Only Radiation Oncology at [facility]att APRN [address] RADIATION ONCOLOGY [place], [place] [id number] [place] [address] [phone] Social History Tobacco Use Types Packs/Day Years [...] Associated Diagnosis Comme nts FILM LIBRARY Routine 08/31/2014 7:15 AM Results f or this STORAGE ONLY MR EDT procedure ar e in HEAD the results section. documented in this encounter Results Film Library- Storage only MR Head (08/31/2014 7:15 AM EDT) Anatomical Region Laterality Modality Other Specimen (Source) Anatomical Collection Method Collection Time Re ceived Time Location / / Volume Laterality 08/31/2014 7:15 AM EDT Narrative 09/03/2014 7:19 AM EDT This is a Non-reportable exam Procedure Note RUPA, UNSIGNED REPORT - 09/03/2014Formatt ing of this note might be different from the original. This is a Non-reportable exam Domonique James APRN [facility]Chast[facility] FILM LIBRARY ORDERABLES documented in this encounter Visit Diagnoses Not on filedocumented in this encounter Care Teams Documentation Clerk Relationship Specialty Start Date End Date Michela Stevenson APRN PCP - General 04/29/10 06/07/16 documented as of this encounter
--- OUTSIDE RECORDS SUMMARY | 2022-05-06 08:18 | XMS_ITS | Encounter Summary ---
:1960 Author Organization [facility] [address] Care Team Providers Name Role Phone Michela Stevenson [place] Primary Care Provider Reason for Visit Reason Comments Radiation Follow-up AVM Encounter Details Date Type Department Care Team Description 09/06/2014 Follow-Up Radiation Oncology at [facility] Art eriovenous malformation (AVM); [facility] [place] Radiation therapy induced brain necrosis [address] [place], [place] RADIATION ONCOL OGY [address] [place], [place] [phone] (Wo rk) Social History Tobacco Use Types [...] Sign Reading Time Taken Comments Blood Pressure 132/97 09/06/2014 1:31 PM EDT Pulse 101 09/06/2014 1:31 PM EDT Temperature 37 ??C (98.6 ??F) 09/06/2014 1:31 PM EDT Respiratory Rate 18 09/06/2014 1:31 PM EDT Oxygen Saturation 98% 09/06/2014 1:31 PM EDT Inhaled Oxygen Concentration - - Weight 91.2 kg (201 lb) 09/06/2014 1:31 PM EDT Height - - Body Mass Index 35.61 07/02/2014 2:44 PM EST documented in this encounter Progress Notes Domonique James, HEAT TREATING OPERATOR - 09/06/2014 4:46 PM EDT Subjective: Patient ID: Shraddha Chavez is a 54 y.o. female who has been seen by provider due to history of breast cancer and treatment with SRS for AVM. She is being seen today to review the results of her recentbrain MRI. HPI AVM Starting in early January 2010, Mrs Chavez reports that she developed headaches, which gradually increased in severity and frequency. These were characterized as fairly short, arising in the area of theleft side of the head, and then centering in the area of the nape of the neck and the back of the head without lateralization. These recurrent headaches spurred a brain MRI performed at [facility]. This demonstrated an area of numerous tortuous vessels and ectatic vessels in the medial left temporal lobe spanning 2 cm or more in diameter, suggestive of an arteriovenous malformation. No enhancing lesion wasseen in the brain. No mass effect or flare-signal abnormality otherwise was noted. The patient was seen by Dr. Harrington on February 19, 2010. Treatment options were discussed. Cerebral angiogram was performed on March 25, 2010. 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 The AVM was seen to have both deep and superficial drainage with a stenosis present in the outflow. No intranidal or feeding artery aneurysms were present. SARY testing was also performed. This demonstrated lateralization of speech function to the left side, all the memory function lateralized to the right. The patient met in followup with Dr. Harrington on April 02, 2010, at which time there was some discussion regarding risks associated with surgery for this particular lesion given the findings of the angiogram and also the SARY testing. Surgery was thought perhaps feasible if embolization might be successful in significantly reducing the size of the lesion. Mrs Chavez was then evaluated by Dr Gregory Tadeo in radiation oncology in consultation on April 29, 2010. CT/angiogram and brain MRI scans, June 19, 2010, demonstrated a left temporal lobe AV malformation with the bulk of the nidus spanning 3 x 2.2 cm in greatest axial dimension. She undewent stereotactic radiosurgery treatment on August 12, 2010. SRS on 08/12/2010 Target location: Left AVM Total dose: 1800 cGy Patient Active Problem List Diagnosis Code ??? Breast CA 174.9 ??? Blurry vision 368.8 ??? AVM (arteriovenous malformation) 747.60 ??? Allergy, drug 995.27 ??? 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 Back pain, chronic 724.5, 338.29 ??? Seborrheic keratosis 702.19 ??? Tachycardia, unspecified 785.0 ??? CERVANTES (headache) 784.0 Past Surgical History Procedure Laterality Date ??? Hysterectomy ovaries not removed ??? Rotator cuff repair ??? Carpal tunnel release bilateral Allergies Allergen Reactions ??? Latex Itching and Rash ??? Adhesive Tape Localized Reaction ??? Codeine Phosphate Hives, Nausea And Vomiting and Rash ??? Hydrocodone-Acetaminophen Nausea And Vomiting ??? Hydromorphone Nausea And Vomiting ??? Morphine Sulfate Nausea And Vomiting ??? Nsaids (Non-Steroidal Anti-Inflammatory Drug) Nausea Only and Rash pt tolerates ibuprofen ??? Oxycodone-Acetaminophen Nausea And Vomiting Has n/v if taken on empty stomach. ??? Promethazine Hcl Nausea And Vomiting ??? Toradol [Ketorolac Tromethamine] Hives ??? Aspirin Rash ??? Cortisone Hot all over / Fever ??? Magnesium Rash ??? Sulfa (Sulfonamide Antibiotics) Hives ??? Tramadol Nausea And Vomiting ??? Mobic [Meloxicam] rash Current Outpatient Prescriptions on File Prior to Visit Medication Sig Dispense Refill ??? LORATADINE ORAL Take by mouth. ??? tamoxifen (NOLVADEX) 20 mg Tablet Take 1 tablet by mouth daily. 90 tablet 3 ??? prochlorperazine (COMPAZINE) 10 mg Tablet Take 1 tablet by mouth every 6 hours as needed for Nausea. 24 tablet 0 ??? ondansetron (ZOFRAN) 8 mg Tablet TAKE 1 TABLET BY MOUTH EVERY 8 HOURS NEEDED FOR NAUSEA 20 tablet 3 ??? b complex vitamins Capsule Take 1 capsule by mouth daily. 90 capsule 3 ??? dexlansoprazole (DEXILANT) 60 mg Cap, Delayed Rel., Multiphasic Take 60 mg by mouth daily. No current facility-administered medications on file prior to visit. Advance Directive: on file Interim History: Patient reports that her primary problem currently relates to pain due to surgery to repair a left shoulder rotator cuff tare. She continues follow up with Dr Dhillon at [facility] for this. She did not expect that recovery would be so difficult. She reports no headache, no N/V at this time. No visual changes. We reviewed the results of her recent brain MRI done at [facility] which was stable. Patient is pleased. Patient is in the process of moving to [facility]. Mood overall is positive. Review of Systems Constitutional: Negative for unexpected weight change. Limitations due to left shoulder surgery and need to wear sling Respiratory: Negative. Cardiovascular: Negative. Patient is now off inderal Gastrointestinal: Negative. Musculoskeletal: Negative. Patient reports ongoing severe pain involving left shoulder--this is being managed by Dr Dhillon at [facility] Skin: Negative. Neurological: Negative for dizziness, speech difficulty and headaches. Hematological: Negative. Psychiatric/Behavioral: Negative. Filed Vitals: 09/06/14 1331 BP: 132/97 Pulse: 101 Temp: 37 ??C (98.6 ??F) TempSrc: Oral Resp: 18 Weight: 91.173 kg (201 lb) SpO2: 98% Objective: Physical Exam Constitutional: She is oriented to person, place, and time. She appears well- developed and well-nourished. No distress. HENT: Head: Normocephalic and atraumatic. Eyes: Conjunctivae and EOM are normal. No scleral icterus. Pulmonary/Chest: Effort normal. Neurological: She is alert and oriented to person, place, and time. She exhibits normal muscle tone.Coordination normal. Skin: Skin is warm and dry. No rash noted. She is not diaphoretic. No erythema. No pallor. Psychiatric: She has a normal mood and affect. Her behavior is normal. Judgment and thought content normal. Vitals reviewed. 08/31/2014-Brain MRI/MRA -stable post treatment changes of the brain Assessment and Plan: Michela Chavez is a pleasant 54 year old woman who was treated with SRS for total dose of 18 Gy for left temporal AVM. She had a follow up brain MRI/MRA done on 08/21/2014 which indicates stable findings.She has no reports of headache, N/V or dizziness at this time. Will follow up again in six months with a repeat MRI. Patient is to call if she has questions or concerns in the interim. 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
--- OUTSIDE RECORDS SUMMARY | 2022-05-06 08:18 | XMS_ITS | Encounter Summary ---
:1960 Author Organization [place] [address] Care Team Providers Name Role Phone Unavailable Primary Care Provider Unavailable Encounter Details Date Type Department Care Team Description 07/02/2016 Telephone [facility]ed[facility] at [facility] [place] Kumar, [facility] [place] [address] [facility] OR[facility] [phone] Social History Tobacco Use Types Packs/Day Years Used Date Smoking Tobacco: Every Day Cigarettes 0.5 e-Cigarettes Smokeless Tobacco: Never Alcohol Use Standard Drinks/Week Comments Yes 0 (1 standard drink = 0.6 oz pure alcoho l) very rare Sex Assigned at Date Recorded Not on file documented as of this encounter Miscellaneous Notes Telephone Encounter - Talia Kumar RN - 07/02/2016 10:24 AM EST TELEPHONE CALL FROM: Patient RE: ? Following her visit here with Dr. Altamirano. She left no specific questions. Called patient back to follow up but there was no answer at either of the phone numbers given. Message left for her to return the call when she is able. documented in this encounter Plan of Treatment Not on filedocumented as of this encounter Visit Diagnoses Not on filedocumented in this encounter
--- OUTSIDE RECORDS SUMMARY | 2022-05-06 08:18 | XMS_ITS | Encounter Summary ---
:1960 Author Organization [facility] [place] [address] Care Team Providers Name Role Phone Noris Tuttle APRN Primary Care Provider Encounter Details Date Type Department Care Team Description 11/17/2017 Hospital Encounter Radiology Library at [place], Ramon Brandt APRN [address] [facility] [id number] [phone] (Wo rk) Social History Tobacco Use Types [...] Sig Dispensed Refills Start Date End Date VITAMINS B COMPLEX take 1 capsule by 90 capsule 3 03/19/2017 CapsuleIndications: mouth once daily Malignant neoplasm involving both nipple and areola of right breast in female magnesium oxide (MAG-OX) Take 400 mg by 0 400 mg Tablet mouth daily. loratadine (CLARITIN) 10 mg Take 10 mg by 0 Tablet mouth daily. dexlansoprazole (DEXILANT) Take 60 mg by 0 60 mg Cap, Delayed Rel., mouth daily. Multiphasic prochlorperazine Take 10 mg by 0 01/27/201208/19 (COMPAZINE) 10 mg Tablet mouth. tamoxifen (NOLVADEX) 20 mg Take 1 tablet by 90 tablet 3 07/07/2018 TabletIndications: mouth daily. Malignant neoplasm of female breast, unspecified estrogen receptor status, unspecified laterality, unspecified site of breast documented as of this encounter Plan of Treatment Not on filedocumented as of this encounter Procedures Procedure Name Priority Date/Time Associated Diagnosis Comme nts FILM LIBRARY Routine 11/17/2017 12:00 AM Results for this STORAGE ONLY MR EDT procedure ar e in HEAD the results section. documented in this encounter Results Film Library- Storage Only MR Head (11/17/2017 12:00 AM EDT) Specimen (Source) Anatomical Location Collection Method / Collectio n Time Received Time / Laterality Volume Narrative [facility] - 11/18/2017 1:38 PM EDT This exam is for storage only and is aut o-finalizing. Domonique James APRN [facility] FILM LIBRARY ORDERABLES Performing Organization Address City/State/ZIP Code Phon e Number [place], [place] documented in this encounter Visit Diagnoses Not on filedocumented in this encounter Care Teams Manager Mechanical Maintenance Relationship Specialty Start Date End Date Noris Tuttle APRN PCP - General Family Medicine 01/28/17 01/04/19 documented as of this encounter
--- OUTSIDE RECORDS SUMMARY | 2022-05-06 08:18 | XMS_ITS | Encounter Summary ---
:1960 Author Organization [facility] [place] [address] Care Team Providers Name Role Phone Michela Stevenson [place] Primary Care Provider Reason for Visit Reason Comments Allergies Encounter Details Date Type Department Care Team Description 02/17/2016 Office Visit Allergy at [facility] Tejal Skinner MD Drug allergy [facility] [place] [address] ALLERGY DEPT [phone] [place], [place] [address] (Wo rk) Social History Tobacco Use Types Packs/Day Years Used Date Smoking Tobacco: Former Cigarettes Quit : 01/27/2016 e-Cigarettes Smokeless Tobacco: Never Alcohol Use Standard Drinks/Week Comments Yes 0 (1 standard drink = 0.6 oz pure alcoho l) very rare Sex Assigned at Date Recorded Not on file documented as of this encounter Last Filed Vital Signs Vital Sign Reading Time Taken Comments Blood Pressure 124/74 02/17/2016 3:40 PM EDT Pulse 83 02/17/2016 3:40 PM EDT Temperature - - Respiratory Rate - - Oxygen Saturation - - Inhaled Oxygen Concentration - - Weight 84.8 kg (187 lb) 02/17/2016 3:40 PM EDT Height 160 cm (5' 3) 02/17/2016 3:40 PM EDT Body Mass Index 33.13 02/17/2016 3:40 PM EDT documented in this encounter Patient Instructions Patient InstructionsTejal Skinner MD - 02/17/2016 4:00 PM EDT If you received cortisone as an injection in January and had no reaction, I would not consider you allergic. Your lidocaine skin testing is negative (no allergy). Allergies to lidocaine and similar drugs are extremely rare. You can safely receive this going forward. Please call if you have new questions or concerns. documented in this encounter Progress Notes Tejal Skinner MD - 02/17/2016 4:00 PM EDT CC: allergy testing HPI: 56 yo F with PMH breast cancer presenting for evaluation of drug allergy at the request of Michela Stevenson The patient is not sure what she is supposed to have tested today and remembers very little about her allergy history. Based on notes there was concern for allergy to cortisone and lidocaine. Patient reports she got cortisone injection on (several weeks ago) which she tolerated without any problems. She is not sure what her reaction to lidocaine may have been. According to notes she has received novocaine without any reaction in the past. ROS: per HPI plus admits to itchy, dry eyes, nasal discharge, sneezing, facial pain, itchy throat, nausea, vomiting, abd pain, diarrhea, wheezing, SOB, leg swelling, hives, easy bruising, muscle aches,joint pains, bone pain, CERVANTES, numbness, diabetes, drug allergy, latex allergy. Denies, f/c/s, weight loss, CP, swollen glands. Patient Active Problem List Diagnosis Code ??? [...] upper-outer quadrant of left female breast C50.412 Past Medical History Diagnosis Date ??? Allergic state ??? Allergy ??? Arthritis ??? Back pain, chronic 04/13/2013 ??? Breast cancer ??? Cerebral AVM ??? GERD (gastroesophageal reflux disease) ??? Seborrheic keratosis 04/25/2013 Past Surgical History Procedure Laterality Date ??? Hysterectomy ovaries not removed ??? Rotator cuff repair ??? Carpal tunnel release bilateral Outpatient Prescriptions Marked as Taking for the 02/17/16 encounter (Office Visit) with Tejal Skinner MD Medication Sig Dispense Refill ??? loratadine (CLARITIN) 10 mg Tablet take 1 tablet by mouth once daily 0 ??? VITAMINS B COMPLEX Capsule take 1 capsule by mouth daily 90 capsule 3 ??? fexofenadine (DANIELA) 180 mg Tablet Take 180 mg by mouth daily. ??? tamoxifen (NOLVADEX) 20 mg Tablet Take 1 tablet by mouth daily. 90 tablet 3 ??? dexlansoprazole (DEXILANT) 60 mg Cap, Delayed Rel., Multiphasic Take 60 mg by mouth daily. Allergies Allergen Reactions ??? Latex Itching and [...] Nausea And Vomiting ??? Mobic [Meloxicam] rash Family History Problem Relation Age of Onset ??? Cataracts Mother ??? Hypertension Mother ??? Thyroid Disease Mother ??? Heart Disease Mother ??? Hypertension Father ??? Heart Disease Father ??? Diabetes Maternal Grandmother ??? Strabismus Grandchild ??? Amblyopia Grandchild ??? Diabetes Daughter ??? Glaucoma Neg Hx ??? Macular Degeneration Neg Hx ??? Retinal Detachment Neg Hx ??? Blindness Neg Hx ??? Cancer Neg Hx ??? Stroke Neg Hx Social History Social History ??? Marital status: Spouse name: N/A ??? Number of children: N/A ??? Years of education: N/A Occupational History ??? Not on file. Social History Main Topics ??? Smoking status: Former Smoker Types: Cigarettes, e-Cigarettes Quit date: 01/27/2016 ??? Smokeless tobacco: Never Used ??? Alcohol use Yes Comment: very rare ??? Drug use: No ??? Sexual activity: Not on file Comment: question deferred Other Topics Concern ??? Not on file Social History Narrative PHYSICAL EXAM: BP 124/74 Pulse 83 Ht 160 cm (5' 3) Wt 84.8 kg (187 lb) BMI 33.13 kg/m2 Gen: AAOx3, no acute distress HEENT: Tympanic membranes clear, no lesions, erythema, or drainage. Conjunctiva not injected. Nasal passages show pink turbinates bilaterally. OP clear without erythema or cobblestoning. NECK: supple, no lymphadenopathy CVS: RRR, no m/r/g LUNGS: CTAB, no wheezing or rales ABD: soft, non-tender, non-distended SKIN: no rashes EXTREMITIES: warm and well-perfused, no edema SKIN TESTING: Histamine (3, 15) Saline prick (neg) Lidocaine HCl 1% (100mg/10mL): Full strength prick negative Saline ID (0, 2) 1:10 dilution (0.1mL) ID: negative Negative skin testing to lidocaine ASSESSMENT AND PLAN: 56 yo F with no evidence of drug allergy to cortisone or lidocaine. If it is true that the patient received cortisone on Jan 28 without a reaction then she is not allergic to this medication. Her skin testing was negative to lidocaine. She is not sure what reaction she had to lidocaine but true allergic reactions to this are exceedingly rare. Most reactions are vasovagal or due to the intended action of lidocaine itself. Thus, with her negative skin testing I would consider her not allergic to this drug and she can safely receive it in the future. RTO prn. Tejal Skinner MD documented in this encounter Plan of Treatment Not on filedocumented as of this encounter Procedures Procedure Name Priority Date/Time Associated Diagnosis Comme nts ALLERGY SCAN 03/06/2016 12:00 AM Results for this EDT procedure are i n the results section . documented in this encounter Results SCAN DOC: ALLERGY (03/06/2016 12:00 AM EDT) Narrative 03/06/2016 12:00 AM EDT This result has an attachment that is no t available. Ordered by an unspecified provider. Scanning Provider MEDIA MGR SCAN EXT ORDR/RSLT documented in this encounter Visit Diagnoses Diagnosis Drug allergy Other drug allergy documented in this encounter Care Teams Razor Grinder Relationship Specialty Start Date End Date Michela Stevenson APRN PCP - General 04/29/10 06/07/16 documented as of this encounter
--- OUTSIDE RECORDS SUMMARY | 2022-05-06 08:18 | XMS_ITS | Encounter Summary ---
:1960 Author Organization [facility] [place] [address] Care Team Providers Name Role Phone Noris Tuttle APRN Primary Care Provider Reason for Referral Surgical (Routine) - Closed Specialty Diagnoses / Procedures Referred By Contact Refer red To Contact Orthopaedics Diagnoses Radiculopathy of lumbar region Waqar oRdriguez MD Ball, Perry A, MD [facility] [place] [address] Fax: Referral ID Status Reason Start Date Expiration Date Visits V isits Requested Authorized [id number] Closed Consult, 02/15/2018 02/15/2019 1 1 Test & Treat Reason for Visit Reason Onset Date Comments Medication Refill 02/15/2018 Encounter Details Date Type Department Care Team Description 02/15/2018 Refill Pain Management at Waqar Rodriguez MD Radiculopathy of lumbar region; [facility] Malignant neoplasm involving both nipple and areola of left breast in female, unspecified estrogen receptor status [facility] [place] [address] [place] [address] [phone] (Wo rk) Social History Tobacco Use Types Packs/Day Years Used Date Smoking Tobacco: Every Day Cigarettes 1 e-Cigarettes Smokeless Tobacco: Never Alcohol Use Standard Drinks/Week Comments Yes 0 (1 standard drink = 0.6 oz pure alcoho l) very rare Sex Assigned at Date Recorded Not on file documented as of this encounter Plan of Treatment Scheduled Referrals Name Type Priority Associated Diagnoses Order S chedule Referral to Spine Outpatient Referral Routine Radiculopathy of Ordered: Center lumbar region 02/15/2018 documented as of this encounter Visit Diagnoses Diagnosis Radiculopathy of lumbar region Thoracic or lumbosacral neuritis or radi culitis, unspecified Malignant neoplasm involving both nipple and areola of left breast in female, unspecified estrogen receptor status documented in this encounter Care Teams Ambulance Dispatcher Relationship Specialty Start Date End Date Noris Tuttle APRN PCP - General Family Medicine 01/28/17 01/04/19 documented as of this encounter
--- OUTSIDE RECORDS SUMMARY | 2022-05-06 08:18 | XMS_ITS | Encounter Summary ---
:1960 [place] [address] Care Team Providers Name Role Phone Unavailable Primary Care Provider Unavailable Reason for Visit Reason Onset Date Comments Appointment 06/26/2016 New injury Encounter Details Date Type Department Care Team Description 06/26/2016 Telephone Orthopaedics at [facility] Ella Elias Appointment ([facility] Rikki, RN injury) [place] [address] Social History Tobacco Use Types Packs/Day Years Used Date Smoking Tobacco: Every Day Cigarettes 0.5 e-Cigarettes Smokeless Tobacco: Never Alcohol Use Standard Drinks/Week Comments Yes 0 (1 standard drink = 0.6 oz pure alcoho l) very rare Sex Assigned at Date Recorded Not on file documented as of this encounter Miscellaneous Notes Telephone Encounter - Ella Elias RN - 06/26/2016 8:36 AM EST Name:Shraddha Chavez Contacted via: [facility] Learning Needs Assessment done within 12 months (no change identified): Yes Pt reports dislocating her TKA yesterday and having to be seen in the ED. She is currently in a brace and requesting to be seen soon than August. Appointment scheduled, she will have CD with her and will bring them to our [employer] library 1 hour before appointment She is thankful for help and has no further questions. documented in this encounter Plan of Treatment Not on filedocumented as of this encounter Visit Diagnoses Not on filedocumented in this encounter
--- OUTSIDE RECORDS SUMMARY | 2022-05-06 08:18 | XMS_ITS | Encounter Summary ---
:1960 Author Organization [facility] [place] [address] Care Team Providers Name Role Phone Michela Stevenson [place] Primary Care Provider Reason for Visit Reason Comments Breast Cancer Encounter Details Date Type Department Care Team Description 07/02/2014 Follow-Up Hematology Oncology at [facility] Lugo MD Malignant neoplasm of [address] [place] female breast [address] [place] [phone] Social History Tobacco Use Types Packs/Day Years [...] Sign Reading Time Taken Comments Blood Pressure 123/79 07/02/2014 2:44 PM EST Pulse 88 07/02/2014 2:44 PM EST Temperature 36.7 ??C (98.1 ??F) 07/02/2014 2:44 PM EST Respiratory Rate 20 07/02/2014 2:44 PM EST Oxygen Saturation 99% 07/02/2014 2:44 PM EST Inhaled Oxygen Concentration - - Weight 94.3 kg (208 lb) 07/02/2014 2:44 PM EST Height 160 cm (5' 2.99) 07/02/2014 2:44 PM EST Body Mass Index 36.85 07/02/2014 2:44 PM EST documented in this encounter Progress Notes Schuyler Lugo MD - 07/02/2014 3:06 PM EST DIAGNOSIS: 1. 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 ER positive, HER-2/viktoria negative, with one lymph node microscopically positive, other two negative. She had arthralgias and myalgias on aromatase inhibitors and is currently on tamoxifen for a planned 10years . 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 Subjective: Shraddha comes in today for her itln-sko-q-half-year followup on her breast cancer. She remains on tamoxifen 20 mg daily. She tells me she has been having progressive problems with her left shoulder and is planning on having rotator cuff surgery. She has some concerns regarding IV access on her right arm in view of her previous breast cancer and axillary dissection. In reality, she only had a sentinel node biopsy with three nodes removed so her risk of lymphedema with an IV in her right arm would be minimal. I gave her reassurance in this. Apparently with the left arm surgery they prefer right arm venous access. She is otherwise doing well. She is no longer having hot flashes. We discussed the possibility of stopping her tamoxifen when we see her back in six months which is her five-year anniversary. 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 She will give it some thought. We will also discuss the potential benefits of 10 years of tamoxifen which I think in her would probably be small considering her low risk of reoccurrence at this point. As far as current symptoms go, she is doing well except she has been having a bit of nausea. She was given a prescription for some Zofran but notes it does not work. With chemotherapy she took occasional Compazine which was helpful, but really she does not have an etiology for her nausea so I talked to her about seeing her PCP in regard to that. She said she was willing to do that. Current Outpatient Prescriptions on File Prior to Visit Medication Sig Dispense Refill ??? ondansetron (ZOFRAN) 8 mg Tablet TAKE [...] Nausea And Vomiting ??? Mobic [Meloxicam] rash Past medical history and social history are reviewed and otherwise unchanged Review of Systems Constitutional: Negative for fever, chills, activity change, fatigue and unexpected weight change. HENT: Negative for sore throat, mouth sores and trouble swallowing. Eyes: Negative. Respiratory: Negative for cough, shortness of breath and wheezing. Cardiovascular: Negative for chest pain, palpitations and leg swelling. Gastrointestinal: still positive for nausea, but no vomiting, abdominal pain, diarrhea, constipationand abdominal distention. Genitourinary: Negative for dysuria and difficulty urinating. Musculoskeletal: left shoulder pain Skin: Negative. Neurological: Chronic Headaches. Hematological: Negative for adenopathy. BP 123/79 Pulse 88 Temp(Src) 36.7 ??C (98.1 ??F) (Oral) Resp 20 Ht 160 cm (5' 2.99) Wt 94.348 kg (208 lb) BMI 36.85 kg/m2 SpO2 99% Head: Normocephalic Eyes: PERRL, conjunctiva/corneas clear benign, both eyes Ears: Normal Nose: Nares normal, Neck: Supple, symmetrical, trachea midline, no adenopathy, thyroid: not enlarged, symmetric, no tenderness/mass/nodules, no carotid bruit or JVD Back: Symmetric, no curvature, ROM normal, no CVA tenderness Lungs: Clear to auscultation bilaterally, respirations unlabored Chest Wall: There are no dominant masses in either breast and both axilla are clear. Heart: Regular rate and rhythm, S1, S2 normal, no murmur, rub or gallop Abdomen: Soft, non-tender, bowel sounds active all four quadrants, no masses, no organomegaly Extremities: Extremities normal,she is guarding her left arm Pulses: 2+ and symmetric Skin: Skin color, texture, turgor normal, no rashes or lesions Lymph nodes: Cervical, supraclavicular, and axillary nodes normal Neurologic: Normal 06/13/14 REASON FOR EXAM: Screening. history of breast cancer TECHNIQUE: Cranio-caudal (CC) and mediolateral oblique (MLO) views of both breasts obtained with direct digital capture. The exam was evaluated by CAD Version 8.3.17. FINDINGS: This is a BENIGN FINDING (BIRADS Category 2 mammogram). There is a stable fibroglandular pattern without significant change as compared to prior studies. There is no mammographic evidence of cancer. The breasts are predominantly fatty. There are post-surgical changes in both breasts. CONCLUSION This is a negative mammogram with a BENIGN FINDING (BIRADS Category 2 Review of her lab today shows a white count of 7.3, hemoglobin 13.2, hematocrit 39.5 and platelet count 220,000. CMP shows a creatinine of 1.0, calcium of 8.9, alkaline phosphatase of 47 and normal liver tests. Assessment/Plan: Shraddha is doing well and has no evidence of recurrent breast cancer now four and a half years after her initial diagnosis. She is at low risk for reoccurrence. She is having some nausea symptoms and will see her PCP. We will give her a few Compazine for p.r.n. use. We will see her back in six months' time with lab, sooner if there are issues or problems in the interim. documented in this encounter Plan of Treatment Not on filedocumented as of this encounter Procedures Procedure Name Priority Date/Time Associated Diagnosis Comme nts LAB SCAN 12/24/2014 12:00 AM EDT MRI/MRA SCAN 08/31/2014 12:00 AM EDT documented in this encounter Results SCAN DOC: LAB (12/24/2014 12:00 AM EDT) Narrative This result has an attachment that is no t available. Scanning Provider MEDIA MGR SCAN EXT ORDR/RSLT SCAN DOC: MRI/MRA (08/31/2014 12:00 AM EDT) Anatomical Region Laterality Modality Other Narrative This result has an attachment that is no t available. Scanning Provider MEDIA MGR SCAN EXT ORDR/RSLT documented in this encounter Visit Diagnoses Diagnosis Malignant neoplasm of right female breas t Malignant neoplasm of breast (female), u nspecified site documented in this encounter Care Teams Film Sorter Relationship Specialty Start Date End Date Michela Stevenson APRN PCP - General 04/29/10 06/07/16 documented as of this encounter
--- OUTSIDE RECORDS SUMMARY | 2022-05-06 08:18 | XMS_ITS | Encounter Summary ---
:1960 Author Organization [facility] [place] [address] Care Team Providers Name Role Phone Michela Stevenson APRN Primary Care Provider Encounter Details Date Type Department Care Team Description 09/19/2014 Orders Only [place]ed[place] [facility] [place] Arnaldo Monte Hx of total knee [facility] J, [place] replacement, [facility] [place] [phone] ORTHOPAEDIC SURG [place], [place] [address] (Wo rk) Social History Tobacco Use Types Packs/Day Years Used Date Smoking Tobacco: Every Day Cigarettes 0.3 37 Smokeless Tobacco: Never Comments: Smoking about 5 cigarettes a d ay Alcohol Use Standard Drinks/Week Comments Yes 0 (1 standard drink = 0.6 oz pure alcoho l) very rare Sex Assigned at Date Recorded Not on file documented as of this encounter Plan of Treatment Not on filedocumented as of this encounter Visit Diagnoses Diagnosis Hx of total knee replacement, bilateral documented in this encounter Care Teams Hand Hide Stretcher Relationship Specialty Start Date End Date Michela Stevenson APRN PCP - General 04/29/10 06/07/16 documented as of this encounter
--- OUTSIDE RECORDS SUMMARY | 2022-05-06 08:18 | XMS_ITS | Encounter Summary ---
:1960 Author Organization [place] [address] Care Team Providers Name Role Phone Luz Steevnsonmaurice Stanley APRN Primary Care Provider Reason for Referral Consultation (Routine) - Specialty Diagnoses / Procedures Referred By Contact Refer red To Contact Pain Management Diagnoses Low back pain, non-specific Dayton Saez MD [place], Susan [facility] [place] [address] Fax: Referral ID Status Reason Start Date Expiration Date Visits V isits Requested Authorized [id number] Consult, 09/09/2015 09/08/2016 1 1 Test & Treat onsultation (Routine) - Canceled Specialty Diagnoses / Procedures Referred By Contact Refer red To Contact Pain Management Diagnoses Low back pain, non-specific Dayton Saez MD [facility] [address] [place] [address] [place] [phone] Fax: Referral ID Status Reason Start Date Expiration Date Visits V isits Requested Authorized [id number] Canceled Consult, 09/09/2015 09/08/2016 1 1 Test & Treat Reason for Visit Reason Comments Low Back Pain Bilateral Leg Pain Bilateral Hip Pain Surgical (Routine) - Closed Specialty Diagnoses / Procedures Referred By Contact Refer red To Contact Neurosurgery Diagnoses Radicular syndrome of left leg Katherine Patino, [facility] [address] [place] [address] [place] [address] Referral ID Status Reason Start Date Expiration Date Visits V isits Requested Authorized [id number] Closed Consult, 08/13/2015 08/12/2016 1 1 Test & Treat Encounter Details Date Type Department Care Team Description 09/09/2015 [facility] [place] [address] Low back pain, [place] Dayton Saez MD [facility] [place] [address] [place] [address] Social History Tobacco Use Types Packs/Day Years Used Date Smoking Tobacco: Every Day Cigarettes 0.5 37 e-Cigarettes Smokeless Tobacco: Never Alcohol Use Standard Drinks/Week Comments Yes 0 (1 standard drink = 0.6 oz pure alcoho l) very rare Sex Assigned at Date Recorded Not on file documented as of this encounter Progress Notes Dayton Saez MD - 09/09/2015 11:20 AM EDT Shraddha Chavez is a 55-year-old woman with a chief complaint of back and left leg pain. Her pain is 90% back pain, 10% left leg pain. She has had this for quite some time. She had a physical therapy and medial branch blocks that were done several years ago. If she stands for periods of times or walks, she gets pain but is not completely relieved by sitting. She has no bowel or bladder dysfunction. She is allergic to MORPHINE and CODEINE. Her past surgical history is significant for: -Breast cancer. -Hysterectomy. -Two knee replacements. -Radiation and treatment for a brain AVM. She denies other chronic medical problems except she does smoke a half pack of cigarettes per day and has done so for many years. She has been disabled since 2007. 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 On examination, dorsalis pedis pulses are palpable. Motor strength is full in the lower extremities. There are bilateral knee replacements. Ankle reflexes are absent. Sensation is intact to light touch. MRI shows a grade 1 spondylolisthesis at L4-5 as well as some L5-S1 disk bulging resulting in some modest canal stenosis and bilateral foraminal stenosis. Flexion extension x-rays do show some movement at the level of her listhesis. Interestingly, she saw Dr. Fernandez about two years ago with similar complaints, and her MR from 2016 is quite similar in appearance to that image. No surgery was recommended at that time. I had a discussion with her on the options in this situation. She does have a degenerative spondylolisthesis with some movement on flexion extension views. However, 90% of her complaint is back pain. We discussed that improvement in back pain following lumbar surgery was somewhat unpredictable. She is also a chronic smoker, and chances of successful fusion here are somewhat low, and she also has a BMI of 35, which does put her at risk for complications from effusion. All stated, I think her chances of a good result from surgery are not particularly high. I think it would not be unreasonable for her to be seen in the Pain Clinic and by Dr. Keith. All questions were answered. documented in this encounter Plan of Treatment Scheduled Referrals Name Type Priority Associated Diagnoses Order S chedule Referral to Spine Outpatient Referral Routine Low back pain, O rdered: Center non-specific 09/09/2015 Referral to Pain Outpatient Referral Routine Low back pain, Or dered: Clinic non-specific 09/09/2015 documented as of this encounter Results XR Lumbar Spine 2 Or 3 Views (GENERIC) (09/09/2015 10:06 AM EDT) Anatomical Region Laterality Modality L-spine N/A Digital Radiography Specimen (Source) Anatomical Location Collection Method / Collectio n Time Received Time / Laterality Volume Impressions 09/09/2015 11:31 AM EDT IMPRESSION: 1. ??There is evidence of degenerative d isc disease at L3-4, L4-5 and L5-S1. 2. ??Markedly restricted range of motion in flexion. 3. ??Range of motion in extension appear s fairly well-preserved; with possible slight restriction. 4. ??Apparent slight anterior spondyloli sthesis of L4 on L5 by an estimated 5.7 mm. Narrative 09/09/2015 11:31 AM EDT EXAMINATION: XR LUMBAR SPINE 2 OR 3 VIEWS CLINICAL HISTORY: back pain, ? Fairly we ll-preserved range of motion in extension with possible slight restricti on. There is apparent slight TECHNIQUE: 2 standing lateral views in f lexion and extension. COMPARISON: The report from previous MRI of the L-spine performed at [facility] dated 07/13/2015 was reviewed. FINDINGS: No acute fractures are seen. There is in tervertebral disc space narrowing noted at L3-4, L4-5 and L5-S1 consistent with degenerative disc disease. The remaining intervertebral disc spacings and vertebr al body heights appear adequately maintained. There is apparent very sligh t anterior spondylolisthesis of L4 on L5 by an estimated 5.7 mm. There is conside rably restricted range of motion in flexion. Range of motion in extension ap pears fairly well preserved. Procedure Note AlexyCraig mckeon, DO - 09/09/2015Format ting of this note might be different from the original. EXAMINATION: XR LUMBAR SPINE 2 OR 3 VIEW S CLINICAL HISTORY: back pain, ? Fairly we ll-preserved range of motion in extension with possible slight restricti on. There is apparent slight TECHNIQUE: 2 standing lateral views in f lexion and extension. COMPARISON: The report from previous MRI of the L-spine performed at [facility] dated 07/13/2015 was reviewed. FINDINGS: No acute fractures are seen. There is in tervertebral disc space narrowing noted at L3-4, L4-5 and L5-S1 consistent with degenerative disc disease. The remaining intervertebral disc spacings and vertebr al body heights appear adequately maintained. There is apparent very sligh t anterior spondylolisthesis of L4 on L5 by an estimated 5.7 mm. There is conside rably restricted range of motion in flexion. Range of motion in extension ap pears fairly well preserved. IMPRESSION IMPRESSION: 1. There is evidence of degenerative dis c disease at L3-4, L4-5 and L5-S1. 2. Markedly restricted range of motion i n flexion. 3. Range of motion in extension appears fairly well-preserved; with possible slight restriction. 4. Apparent slight anterior spondylolist hesis of L4 on L5 by an estimated 5.7 mm. Dayton Saez MD IMG DX ORDERABLES documented in this encounter Visit Diagnoses Diagnosis Low back pain, non-specific Low back pain, non-specific documented in this encounter Care Teams Track Greaser Relationship Specialty Start Date End Date Michela Stevenson APRN PCP - General 04/29/10 06/07/16 documented as of this encounter
--- OUTSIDE RECORDS SUMMARY | 2022-05-06 08:18 | XMS_ITS | Encounter Summary ---
:1960 Author Organization [facility] [place] [place] [address] Care Team Providers Name Role Phone Noris Tuttle APRN Primary Care Provider Encounter Details Date Type Department Care Team Description 12/09/2017 Hospital Encounter Radiology Library at [place], Ramon Brandt APRN [address] [facility] [phone] (Wo rk) Social History Tobacco Use Types [...] 2 puffs by 0 11/20/2017 mcg/actuation HFA mouth BEFORE Aerosol Inhaler EXERCISE NEEDED amoxicillin (AMOXIL) 500 TAKE 4 CAPSULES BY 0 mg Capsule MOUTH ONCE, 1 ARNULFO BEFORE DENTAL APPOINTMENTS VITAMINS B COMPLEX take 1 capsule by [...] 60 mg Cap, daily. Delayed Rel., Multiphasic prochlorperazine Take 10 mg by mouth. 0 2 08/19/2018 (COMPAZINE) 10 mg Tablet tamoxifen (NOLVADEX) 20 Take 1 tablet by 90 tablet 3 201707/07/2018 mg TabletIndications: mouth daily. Malignant neoplasm of female breast, unspecified estrogen receptor status, unspecified laterality, unspecified site of breast documented as of this encounter Plan of Treatment Not on filedocumented as of this encounter Procedures Procedure Name Priority Date/Time Associated Diagnosis Comme nts FILM LIBRARY Routine 12/09/2017 12:00 AM Results for this STORAGE ONLY MAMMO EDT procedure are in the results section. documented in this encounter Results Film Library- Storage Only Mammo (12/09/2017 12:00 AM EDT) Specimen (Source) Anatomical Location Collection Method / Collectio n Time Received Time / Laterality Volume Narrative [facility] - 12/10/2017 9:43 AM EDT This exam is for storage only and is aut o-finalizing. Domonique James APRN IMChastity FILM LIBRARY ORDERABLES Performing Organization Address City/State/ZIP Code Phon e Number [place], [place] documented in this encounter Visit Diagnoses Not on filedocumented in this encounter Care Teams Credentialing Assistant Relationship Specialty Start Date End Date Noris Tuttle APRN PCP - General Family Medicine 01/28/17 01/04/19 documented as of this encounter
--- OUTSIDE RECORDS SUMMARY | 2022-05-06 08:18 | XMS_ITS | Encounter Summary ---
:1960 Author Organization [facility] [place] [address] Care Team Providers Name Role Phone Michela Stevenson [place] Primary Care Provider Encounter Details Date Type Department Care Team Description 2016 Hospital Encounter Radiology Library at [facility], Schuyler Snyder MD [address] Located within [facility] [id number] [place] [address] [phone] Social History Tobacco Use Types Packs/Day Years [...] Sig Dispensed Refills Start Date End Date dexlansoprazole (DEXILANT) Take 60 mg by 0 60 mg Cap, Delayed Rel., mouth daily. Multiphasic prochlorperazine Take 10 mg by 0 01/27/201208/19 (COMPAZINE) 10 mg Tablet mouth. loratadine (CLARITIN) 10 Reported on 0 11/01/2015 11/19/2016 mg Tablet 07/01/2016 traMADol (ULTRAM) 50 mg TAKE 1 TABLET BY 0 201503/23/2016 Tablet MOUTH 4 TIMES DAILY NEEDED/USE SPARINGLY ondansetron (ZOFRAN) 4 mg Take 1 tablet by 30 tablet 3 02/201603/23/2016 TabletIndications: mouth every 8 Arteriovenous malformation hours as needed (AVM) for Nausea (TAKE ONE OR TWO TABLETS EVERY 8 HOURS NEEDED FOR NAUSEA AND VOMITING). VITAMINS B COMPLEX Capsule take 1 capsule by 90 capsule 3 03/23/2016 mouth daily fexofenadine (DANIELA) 180 Take 180 mg by 0 11/19/2016 mg Tablet mouth daily. tamoxifen (NOLVADEX) 20 mg Take 1 tablet by 90 tablet 3 07/20/2016 TabletIndications: mouth daily. Malignant neoplasm of right female breast documented as of this encounter Plan of Treatment Not on filedocumented as of this encounter Procedures Procedure Name Priority Date/Time Associated Diagnosis Comme nts LAB SCAN 11/09/2016 12:00 AM Results for this EDT procedure are i n the results section. FILM LIBRARY Routine 2016 12:00 AM Pain Results for this STORAGE ONLY MR EDT procedure ar e in HEAD the results section. LAB SCAN 12/17/2015 12:00 AM EDT documented in this encounter Results SCAN DOC: LAB (11/09/2016 12:00 AM EDT) Narrative 11/09/2016 12:00 AM EDT This result has an attachment that is no t available. Ordered by an unspecified provider. Scanning Provider MEDIA MGR SCAN EXT ORDR/RSLT Film Library- Storage only MR Head (2016 12:00 AM EDT) Specimen (Source) Anatomical Location Collection Method / Collectio n Time Received Time / Laterality Volume Narrative [facility] - 11/15/2015 6:51 AM EDT This exam is for storage only and is aut o-finalizing. Schuyler Lugo MD Chast[facility] FILM LIBRARY ORDERABLES Performing Organization Address City/State/ZIP Code Phon e Number [place], [place] SCAN DOC: LAB (12/17/2015 12:00 AM EDT) Narrative This result has an attachment that is no t available. Scanning Provider MEDIA MGR SCAN EXT ORDR/RSLT documented in this encounter Visit Diagnoses Diagnosis Pain Generalized pain documented in this encounter Care Teams Yeast Fermentation Attendant Relationship Specialty Start Date End Date Michela Stevenson APRN PCP - General 04/29/10 06/07/16 documented as of this encounter
--- OUTSIDE RECORDS SUMMARY | 2022-05-06 08:18 | XMS_ITS | Encounter Summary ---
:1960 [place] [address] Care Team Providers Name Role Phone Unavailable Primary Care Provider Unavailable Encounter Details Date Type Department Care Team Description 06/25/2016 Hospital [facility] [place] [facility] [place] [address] [place] [address] ORTHOPAEDIC SURGERY [phone] [place], [place] [address] (Wo rk) Social History Tobacco [...] 0 01/27/201208/19 (COMPAZINE) 10 mg Tablet mouth. b complex vitamins One tab daily 90 capsule 3 04/21/2016 (VITAMINS B COMPLEX) CapsuleIndications: Malignant neoplasm involving both nipple and areola of right breast in female loratadine (CLARITIN) 10 Reported on 0 11/01/2015 11/19/2016 mg Tablet 07/01/2016 fexofenadine (DANIELA) 180 Take 180 mg by 0 11/19/2016 mg Tablet mouth daily. tamoxifen (NOLVADEX) 20 mg Take 1 tablet by 90 tablet 3 07/20/2016 TabletIndications: mouth daily. Malignant neoplasm of right female breast documented as of this encounter Plan of Treatment Not on filedocumented as of this encounter Procedures Procedure Name Priority Date/Time Associated Diagnosis Comme nts FILM LIBRARY Routine 06/25/2016 12:00 AM Pain Results for this STORAGE ONLY DX EST procedure ar e in KNEE the results section. documented in this encounter Results Film Library- Storage Only DX K[place] (06/25/2016 12:00 AM EST) Specimen (Source) Anatomical Location Collection Method / Collectio n Time Received Time / Laterality Volume Narrative [facility] - 06/26/2016 3:57 PM EST This exam is for storage only and is aut o-finalizing. Levy Altamirano MD IMChastity FILM LIBRARY ORDERABLES Performing Organization Address City/State/ZIP Code Phon e Number [facility] [place], [place] documented in this encounter Visit Diagnoses Diagnosis Pain Generalized pain documented in this encounter
--- OUTSIDE RECORDS SUMMARY | 2022-05-06 08:18 | XMS_ITS | Encounter Summary ---
:1960 Author Organization [facility] [place] [address] Care Team Providers Name Role Phone Noris Tuttle APRN Primary Care Provider Reason for Visit Reason Comments Radiation Follow-up AVM Encounter Details Date Type Department Care Team Description 11/25/2017 Office Visit Radiation Oncology Domonique James, Arteri ovenous malformation (AVM); at [facility] QUALITY CONTROL CLERK Malignant neoplasm of right breast in fe male, estrogen receptor positive, unspecified site of breast [address] [place], [place] RADIATION ONCOL OGY [address] [place], [place] [phone] [address] Social History Tobacco Use Types Packs/Day Years Used Date Smoking Tobacco: Every Day Cigarettes 1 e-Cigarettes Smokeless Tobacco: Never Alcohol Use Standard Drinks/Week Comments Yes 0 (1 standard drink = 0.6 oz pure alcoho l) very rare Sex Assigned at Date Recorded Not on file documented as of this encounter Last Filed Vital Signs Vital Sign Reading Time Taken Comments Blood Pressure 135/77 11/25/2017 1:04 PM EDT Pulse 91 11/25/2017 1:04 PM EDT Temperature 37 ??C (98.6 ??F) 11/25/2017 1:04 PM EDT Respiratory Rate 16 11/25/2017 1:04 PM EDT Oxygen Saturation 98% 11/25/2017 1:04 PM EDT Inhaled Oxygen Concentration - - Weight 95.3 kg (210 lb) 11/25/2017 1:04 PM EDT Height 160 cm (5' 3) 11/25/2017 1:04 PM EDT Body Mass Index 37.2 11/25/2017 1:04 PM EDT documented in this encounter Progress Notes Domonique James, QUALITY CONTROL CLERK - 11/25/2017 1:00 PM EDT Patient ID: Shraddha Chavez is a 57 y.o. female who is being seen in [...] quadrant of left female breast C50.412 Past Surgical History: Procedure Laterality Date ??? [...] Nausea And Vomiting ??? Mobic [Meloxicam] rash Medications 11/25/17 1319 Medication Sig Taking? tamoxifen (NOLVADEX) 20 mg Tablet Take 1 tablet by mouth daily. Yes VITAMINS B COMPLEX Capsule take 1 capsule by mouth once daily Yes magnesium oxide (MAG-OX) 400 mg Tablet Take 400 mg by mouth daily. Yes loratadine (CLARITIN) 10 mg Tablet Take 10 mg by mouth daily. Yes dexlansoprazole (DEXILANT) 60 mg Cap, Delayed Rel., Multiphasic Take 60 mg by mouth daily. Yes Social History Social History ??? Marital status: Spouse name: N/A ??? Number of children: N/A ??? Years of education: N/A Occupational History ??? Not on file. Social History Main Topics ??? Smoking status: Current Every Day Smoker Packs/day: 1.00 Types: Cigarettes, e-Cigarettes ??? Smokeless tobacco: Never Used ??? Alcohol use Yes Comment: very rare ??? Drug use: No ??? Sexual activity: Not on file Comment: question deferred Other Topics Concern ??? Not on file Social History Narrative Advance Directive: on file Interim History: Shraddha reports that she is doing well at this time. She is in a new relationship and she is very happy with this. She reports that other than hypoglycemia that she has been generally well. She denies headaches. Shedoes have ongoing issues with nausea but this is not distressing her at this time. She had a repeat MRI which we reviewed and shows no change. She does reports some word finding difficulties that are intermittent. She continues on MAY for her breast cancer. She does not recall when her last mammogram was done. She indicates that it would have been done at [facility] but there is no record of a mammogram since Jun 2015and this was a mammogram done at [facility]. Patient would like mammogram to be done at [facility] Review of Systems Constitutional: Negative. Negative for activity change, appetite change, chills, diaphoresis, fatigue, fever and unexpected weight change. Eyes: Negative. Negative for visual disturbance. Respiratory: Negative. Negative for cough, chest tightness and shortness of breath. Patient continues to smoke- 5 Cigarettes a day. Cardiovascular: Negative. Negative for chest pain, palpitations and leg swelling. Gastrointestinal: Positive for nausea. Negative for abdominal pain, constipation, diarrhea and vomiting. See interim history Intermittent nausea Genitourinary: Negative. Negative for difficulty urinating. Post menopausal Musculoskeletal: Positive for arthralgias. Skin: Negative. Neurological: Positive for headaches. Negative for dizziness, seizures, weakness and numbness. Rare Headaches occ word finding difficulty Hematological: Negative. Psychiatric/Behavioral: Positive for sleep disturbance. Unchanged sleep disturbance Vitals Office Visit from 11/25/2017 in Radiation Oncology at [facility] Weight 95.3 kg (210 lb) Height 160 cm (5' 3) BSA (Calculated - sq m) 2.06 sq meters BMI (Calculated) 37.2 Temp 37 ??C (98.6 ??F) Temp src Oral Heart Rate 91 Heart Rate Source NIBP Resp 16 BP 135/77 BP Location Left arm Patient Position Sitting SpO2 98 % Objective: Physical Exam Constitutional: She is oriented to person, place, and time. She appears well- developed and well-nourished. No distress. HENT: Head: Normocephalic and atraumatic. Mouth/Throat: Oropharynx is clear and moist. No oropharyngeal exudate. Eyes: Conjunctivae and EOM are normal. Pupils are equal, round, and reactive to light. Right eye exhibits no discharge. Left eye [...] brain MRI--stable post treatment changes. No change Assessment [...] well at this time and she uses zofran as needed. Her exam today was negative for any concerning findings. We will repeat brain MRI in one year for surveillance and she will be seen in clinic for scheduled follow-up. H/O of right breast cancer: There are no concerning findings on exam. Shraddha continues with MAY and tolerates well. For unclear reason she has not had a surveillance mammogram since 06/2015. I have placed an order andshe requests that the mammogram be done at [facility]. documented in this encounter Plan of Treatment Not on filedocumented as of this encounter Procedures Procedure Name Priority Date/Time Associated Diagnosis Comme nts CT SCAN (SCAN) 12/09/2017 12:00 AM Result s for this EDT procedure are i n the results section . MRI/MRA SCAN 11/17/2017 12:00 AM Results for this EDT procedure are i n the results section . documented in this encounter Results SCAN DOC: CT SCAN (12/09/2017 12:00 AM EDT) Anatomical Region Laterality Modality Other Narrative 12/09/2017 12:00 AM EDT This result has an attachment that is no t available. Ordered by an unspecified provider. Scanning Provider MEDIA MGR SCAN EXT ORDR/RSLT SCAN DOC: MRI/MRA (11/17/2017 12:00 AM EDT) Anatomical Region Laterality Modality Other Narrative 11/17/2017 12:00 AM EDT This result has an attachment that is no t available. Ordered by an unspecified provider. 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
--- OUTSIDE RECORDS SUMMARY | 2022-05-06 08:18 | XMS_ITS | Encounter Summary ---
:1960 Author Organization [facility] [place] [address] Care Team Providers Name Role Phone Michela Stevenson CAROLINA Primary Care Provider Encounter Details Date Type Department Care Team Description 06/17/2015 Hospital Encounter Radiology Library at [facility], [place] [address] Social History Tobacco Use Types Packs/Day [...] 0 01/27/201208/19 (COMPAZINE) 10 mg Tablet mouth. VITAMINS B COMPLEX Capsule take 1 capsule by 90 capsule 3 03/23/2016 mouth daily fexofenadine (DANIELA) 180 Take 180 mg by 0 11/19/2016 mg Tablet mouth daily. CYCLOBENZAPRINE HCL Take 10 mg by 0 (FLEXERIL ORAL) mouth as needed. tamoxifen (NOLVADEX) 20 mg Take 1 tablet by 90 tablet 3 07/20/2016 TabletIndications: mouth daily. Malignant neoplasm of right female breast documented as of this encounter Plan of Treatment Not on filedocumented as of this encounter Procedures Procedure Name Priority Date/Time Associated Diagnosis Comme nts MAMMOGRAM SCAN 06/17/2015 12:00 AM EST FILM LIBRARY Routine 06/17/2015 12:00 AM Pain Results for this STORAGE ONLY MAMMO EST procedure are in the results section. documented in this encounter Results Film Library- Storage only Mammo (06/17/2015 12:00 AM EST) Specimen (Source) Anatomical Location Collection Method / Collectio n Time Received Time / Laterality Volume Narrative [facility] - 06/18/2015 4:15 PM EST See PACS for result report. [facility] ORDERABLES Performing Organization Address City/State/ZIP Code Phon e Number [place], [place] SCAN DOC: MAMMOGRAM (06/17/2015 12:00 AM EST) Anatomical Region Laterality Modality Other Narrative This result has an attachment that is no t available. Scanning Provider MEDIA MGR SCAN EXT ORDR/RSLT documented in this encounter Visit Diagnoses Diagnosis Pain Generalized pain documented in this encounter Care Teams Consultant Rn Relationship Specialty Start Date End Date Michela Stevenson APRN PCP - General 04/29/10 06/07/16 documented as of this encounter
--- OUTSIDE RECORDS SUMMARY | 2022-05-06 08:18 | XMS_ITS | Encounter Summary ---
:1960 Author Organization [facility] Address [address] [facility] [place] [address] Care Team Providers Name Role Phone Unavailable Primary Care Provider Unavailable Encounter Details Date Type Department Care Team Description 07/29/2016 Hospital Encounter XRay at [facility] [place] Levy Altamirano Dislocation, patella [address] [place] [address] Dr Rikki MD [facility] [place] [phone] RAYNE [phone] [place] [address] Social History Tobacco Use Types Packs/Day Years [...] Take 1 tablet by 90 tablet 3 06/29/2017 TabletIndications: mouth daily. Malignant neoplasm of right female breast, unspecified site of breast b complex vitamins One tab daily 90 capsule 3 04/21/2016 (VITAMINS B COMPLEX) CapsuleIndications: Malignant neoplasm involving both nipple and areola of right breast in female loratadine (CLARITIN) 10 Reported on 0 11/01/2015 11/19/2016 mg Tablet 07/01/2016 fexofenadine (DANIELA) 180 Take 180 mg by 0 11/19/2016 mg Tablet mouth daily. documented as of this encounter Plan of Treatment Not on filedocumented as of this encounter Procedures Procedure Name Priority Date/Time Associated Diagnosis Comme nts XR KNEE AP & LAT Routine 07/29/2016 9:21 AM Dislocation, samson la Results for this RIGHT EST closed, right, procedure are in initial encounter the result s section. documented in this encounter Results XR Knee 1-2 Views Right (Generic) (07/29/2016 9:21 AM EST) Anatomical Region Laterality Modality Knee Right Digital Radiography Specimen (Source) Anatomical Location Collection Method / Collectio n Time Received Time / Laterality Volume Impressions 07/29/2016 9:34 AM EST The oblique linear lucency seen traversing the superior margin of the patella on the crosstable lateral radiograph of 06/07 is not definitely seen on the current exam. This could represent inter chele healing of a nondisplaced superior patellar pole fracture. Otherwise, no ev idence of complication or change. Narrative 07/29/2016 9:34 AM EST EXAMINATION: XR KNEE 1-2 VIEWS RIGHT (GENERIC) CLINICAL HISTORY: patella fracture with loose body TECHNIQUE: Frontal and lateral radiograp hs of the right knee were obtained with the patient nonweightbearing. COMPARISON: Multiple prior right knee ra diographs ranging from 10/04/2006 through 06/28/2016. FINDINGS: There is been prior right total knee art hroplasty hardware is intact without radiographic evidence of loosening. The oblique linear lucency seen traversi ng the superior margin of the patella on the crosstable lateral radiograph of 06/07 is not definitely seen on the current exam. This could represent inter chele healing of a nondisplaced superior patellar pole fracture. No new fracture is seen. There is no dislocation. There is no significant suprapatellar knee tad nt effusion. Procedure Note Audra Encarnacion MD - 07/29/2016Formatting o f this note might be different from the original. EXAMINATION: XR KNEE 1-2 VIEWS RIGHT (GE NERIC) CLINICAL HISTORY: patella fracture with loose body TECHNIQUE: Frontal and lateral radiograp hs of the right knee were obtained with the patient nonweightbearing. COMPARISON: Multiple prior right knee ra diographs ranging from 10/04/2006 through 06/28/2016. FINDINGS: There is been prior right total knee art hroplasty hardware is intact without radiographic evidence of loosening. The oblique linear lucency seen traversi ng the superior margin of the patella on the crosstable lateral radiograph of 06/07 is not definitely seen on the current exam. This could represent inter chele healing of a nondisplaced superior patellar pole fracture. No new fracture is seen. There is no dislocation. There is no significant suprapatellar knee tad nt effusion. IMPRESSION The oblique linear lucency seen traversi ng the superior margin of the patella on the crosstable lateral radiograph of 06/07 is not definitely seen on the current exam. This could represent inter chele healing of a nondisplaced superior patellar pole fracture. Otherwise, no ev idence of complication or change. Levy Altamirano MD IMG DX ORDERABLES documented in this encounter Visit Diagnoses Diagnosis Dislocation, patella closed, right, init ial encounter documented in this encounter
--- OUTSIDE RECORDS SUMMARY | 2022-05-06 08:18 | XMS_ITS | Encounter Summary ---
:1960 Author Organization [facility] [place] [address] Care Team Providers Name Role Phone Michela Stevenson CAROLINA Primary Care Provider Reason for Referral Surgical (Routine) - Closed Specialty Diagnoses / Procedures Referred By Contact Refer red To Contact Neurosurgery Diagnoses Radicular syndrome of left leg Katherine Patino [facility] Neurosurgery 3c PLANNING ASSOCIATE [facility] [place] [address] [place] [address] Referral ID Status Reason Start Date Expiration Date Visits V isits Requested Authorized [id number] Closed Consult, 08/13/2015 08/12/2016 1 1 Test & Treat Encounter Details Date Type Department Care Team Description 08/13/2015 Orders Only Pain Management at Katherine Patino Rad icular syndrome of [place] PLANNING ASSOCIATE left leg [facility] [place] [address] [place] [address] [phone] Social History Tobacco Use Types Packs/Day Years Used Date Smoking Tobacco: Every Day Cigarettes 0.5 37 e-Cigarettes Smokeless Tobacco: Never Alcohol Use Standard Drinks/Week Comments Yes 0 (1 standard drink = 0.6 oz pure alcoho l) very rare Sex Assigned at Date Recorded Not on file documented as of this encounter Plan of Treatment Scheduled Referrals Name Type Priority Associated Order Schedule Diagnoses Referral to Outpatient Referral Routine Radicular syndrome Or dered: Neurosurgery of left leg 08/13/2015 documented as of this encounter Visit Diagnoses Diagnosis Radicular syndrome of left leg Thoracic or lumbosacral neuritis or radi culitis, unspecified documented in this encounter Care Teams Staple Shear Operator Relationship Specialty Start Date End Date Michela Stevenson APRN PCP - General 04/29/10 06/07/16 documented as of this encounter
--- OUTSIDE RECORDS SUMMARY | 2022-05-06 08:18 | XMS_ITS | Encounter Summary ---
:1960 Author Organization [facility] [place] [address] Care Team Providers Name Role Phone Unavailable Primary Care Provider Unavailable Encounter Details Date Type Department Care Team Description 11/17/2016 Hospital Encounter Radiology Library at Malcolm Salvador MD [address] [facility] [place] [address] [id number] (Wo rk) Social History Tobacco Use Types [...] Date/Time Associated Diagnosis Comme nts MRI/MRA SCAN 11/18/2016 12:00 AM Results for this EDT procedure are i n the results section. FILM LIBRARY Routine 11/17/2016 12:00 AM Pain Results for this STORAGE ONLY MR EDT procedure ar e in HEAD the results section. documented in this encounter Results SCAN DOC: MRI/MRA (11/18/2016 12:00 AM EDT) Anatomical Region Laterality Modality SO Narrative 11/18/2016 12:00 AM EDT This result has an attachment that is no t available. Ordered by an unspecified provider. Scanning Provider MEDIA MGR SCAN EXT ORDR/RSLT Film Library- Storage Only MR Head (11/17/2016 12:00 AM EDT) Specimen (Source) Anatomical Location Collection Method / Collectio n Time Received Time / Laterality Volume Narrative [facility] - 11/18/2016 10:13 AM EDT This exam is for storage only and is aut o-finalizing. Malcolm Salvador MD [facility] FILM LIBRARY ORDERABLES Performing Organization Address City/State/ZIP Code Phon e Number [place], [place] documented in this encounter Visit Diagnoses Diagnosis Pain Generalized pain documented in this encounter
--- OUTSIDE RECORDS SUMMARY | 2022-05-06 08:18 | XMS_ITS | Encounter Summary ---
:1960 Author Organization [facility] [place] [address] Care Team Providers Name Role Phone Parag Rusk Mike FIGUEROA Primary Care Provider Reason for Visit Reason Onset Date Comments Medication Refill 02/15/2018 Encounter Details Date Type Department Care Team Description 02/15/2018 Refill Pain Management at Waqar Antonio [place] [address] [facility] [phone] [place], [place] [address] (Wo rk) Social History Tobacco Use Types Packs/Day Years Used Date Smoking Tobacco: Every Day Cigarettes 1 e-Cigarettes Smokeless Tobacco: Never Alcohol Use Standard Drinks/Week Comments Yes 0 (1 standard drink = 0.6 oz pure alcoho l) very rare Sex Assigned at Date Recorded Not on file documented as of this encounter Miscellaneous Notes Telephone Encounter - Waqar Rodriguez MD - 02/15/2018 11:31 AM EDT Patient was seen up that [facility]. She does not want to have anymore injections. She is not tolerating medications for pain. She had seen Dr. Saez previously and I told her the following options were available to her: #1. Medication management. #2. Reevaluation by Dr. Saez #3. Spinal cord stimulator trial She would like to see Dr. Saez. I am going to order an updated MRI at [facility]. documented in this encounter Plan of Treatment Not on filedocumented as of this encounter Visit Diagnoses Not on filedocumented in this encounter Care Teams Registered Phlebotomist Part Time Relationship Specialty Start Date End Date Noris Tuttle APRN PCP - General Family Medicine 01/28/17 01/04/19 documented as of this encounter
--- OUTSIDE RECORDS SUMMARY | 2022-05-06 08:18 | XMS_ITS | Encounter Summary ---
:1960 Author Organization [facility] [place] [address] Care Team Providers Name Role Phone Noris Tuttle APRN Primary Care Provider Encounter Details Date Type Department Care Team Description 02/22/2018 Hospital Encounter Radiology Library at [place], Dominga Macedo MD [facility] [place] [address] [place] [address] [phone] (Wo rk) Social History Tobacco Use Types [...] HFA mouth BEFORE Aerosol Inhaler EXERCISE NEEDED baclofen (LIORESAL) 10 take 1 tablet by 0 018 mg Tablet mouth three times a day if needed CHOLECALCIFEROL, VITAMIN 0 02/20/2018 D3, 2,000 unit Capsule amoxicillin (AMOXIL) 500 TAKE 4 CAPSULES BY [...] Associated Diagnosis Comme nts FILM LIBRARY Routine 02/22/2018 12:00 AM Results for this STORAGE ONLY MR EDT procedure ar e in SPINE the results section. documented in this encounter Results Film Library- Storage Only MR Spine (02/22/2018 12:00 AM EDT) Specimen (Source) Anatomical Location Collection Method / Collectio n Time Received Time / Laterality Volume Narrative [facility] - 04/01/2018 12:47 PM EDT This exam is for storage only and is aut o-finalizing. Stevan Lopez MD [facility] FILM LIBRARY ORDERABLES Performing Organization Address City/State/ZIP Code Phon e Number [place], [place] documented in this encounter Visit Diagnoses Not on filedocumented in this encounter Care Teams Doughnut Dough Mixer Relationship Specialty Start Date End Date Noris Tuttle APRN PCP - General Family Medicine 01/28/17 01/04/19 documented as of this encounter
--- OUTSIDE RECORDS SUMMARY | 2022-05-06 08:18 | XMS_ITS | Encounter Summary ---
:1960 Author Organization [facility] Address [address] [place] [address] Care Team Providers Name Role Phone Unavailable Primary Care Provider Unavailable Reason for Referral Physical Therapy (Routine) - Specialty Diagnoses / Procedures Referred By Contact Refer red To Contact Physical Therapy Diagnoses Patellar sleeve fracture, right, closed, with nonunion, subsequent encounter Levy Altamirano MD [facility] [place] [address] Referral ID Status Reason Start Date Expiration Date Visits V isits Requested Authorized [id number] Evaluate and 07/29/2016 01/25/2017 12 12 Treat Reason for Visit Reason Comments Follow-up R patellar disloc DOI 7 bilat TKA DOS 10/31/08 Encounter Details Date Type Department Care Team Description 07/29/2016 Office Visit [place] [facility] [place] Altamirano Patellar sleeve [facility] MD Rikki fracture, right, [address] [facility] closed, [place] [address] damico, subsequent [phone] ORTHOPAEDIC encounter SURGERY [place], [place] [address] Social History Tobacco Use Types Packs/Day Years [...] Sign Reading Time Taken Comments Blood Pressure 120/71 07/29/2016 9:30 AM EST Pulse 92 07/29/2016 9:30 AM EST Temperature - - Respiratory Rate - - Oxygen Saturation - - Inhaled Oxygen Concentration - - Weight 91.6 kg (202 lb) 07/29/2016 9:30 AM EST verbal Height 160 cm (5' 3) 07/29/2016 9:30 AM EST verbal Body Mass Index 35.78 07/29/2016 9:30 AM EST documented in this encounter Progress Notes Levy Altamirano - 07/29/2016 10:30 AM EST Ms. Chavez is a 56-year-old female who is 7 years status post a right total knee replacement a decade on the left side, but it was the right side that brought her to our office last June when she sustained what either is a subluxation or dislocation of her right patella with a subsequent avulsion fracture. In any event, we basically just treated her in extension with the hope that this would just solidify. In taking the brace off today she certainly has full extension capability, and she could easily flex to 90 degrees. She still has some tenderness over the superior lateral aspect of the patella, and she said as of this morning she actually moved the knee, and she felt something pop. It was not particularly painful, but she felt that. She also says that on one occasion she felt something move there, and she has not had that sensation any longer. She did have x-rays today, and I can still see that fragment, and I suspect that this is probably scarred in to the synovium. I did not think it was appropriate to go fetch it, particularly with x-rays of our patella on both sunrise views as well as lateral views did not demonstrate any compromise of the bone cement interface or the polyethelene cement interface. At this time I think we will just discontinue the Callahan. We will get her involved in PT for range of motion, strengthening, and gait, but if she still has persistent discomfort we should probably evaluate her within a month to 6 weeks. Otherwise, she will just come back for her routine appointments. I do not think that this fragment is a free-floating fragment, but obviously if something locks then we would probably have to think in terms of fetching it, but I think at this point in time PT should work. Patient is aware of our goals and will keep us informed. CC: Michela Stevenson documented in this encounter Plan of Treatment Scheduled Referrals Name Type Priority Associated Diagnoses Order S chedule Referral to Outpatient Referral Routine Patellar sleeve Order ed: Physical Therapy fracture, right, 017 closed, with nonunion, subsequent encounter documented as of this encounter Visit Diagnoses Diagnosis Patellar sleeve fracture, right, closed, with nonunion, subsequent encounter documented in this encounter
--- OUTSIDE RECORDS SUMMARY | 2022-05-06 08:18 | XMS_ITS | Encounter Summary ---
:1960 Author Organization [facility] [place] [address] Care Team Providers Name Role Phone Noris Tuttle APRN Primary Care Provider Reason for Visit Reason Comments Medication Refill Encounter Details Date Type Department Care Team Description 03/19/2017 Refill Hematology Oncology at [place], Geovanny Brandt APRN Malignant neoplasm [address] involving both nipple [address] [place] [address] RADIATION ONCOLOGY and areola of right [place], [place] breast in female [id number] [phone] (Wo rk) Social History Tobacco Use Types [...] this encounter Visit Diagnoses Diagnosis Malignant neoplasm involving both nipple and areola of right breast in female documented in this encounter Care Teams Test Bore Helper Relationship Specialty Start Date End Date Noris Tuttle APRN PCP - General Family Medicine 01/28/17 01/04/19 documented as of this encounter
--- OUTSIDE RECORDS SUMMARY | 2022-05-06 08:18 | XMS_ITS | Encounter Summary ---
:1960 Author Organization [facility] [place] [address] Care Team Providers Name Role Phone Unavailable Primary Care Provider Unavailable Encounter Details Date Type Department Care Team Description 11/23/2016 Orders Only Hematology/Oncology Consuelo Haney, Svetlana gnmedhat neoplasm at [facility] CIVIL DESIGN TECHNICIAN involving both nipple [address] and areola of right [place], [place] [facility] [place] breast in [place] [phone] [place] [address] (Wo rk) Social History Tobacco Use Types [...]
--- OUTSIDE RECORDS SUMMARY | 2022-05-06 08:18 | XMS_ITS | Encounter Summary ---
:1960 Author Organization [facility] [address] Care Team Providers Name Role Phone Graham Michela Jaden FIGUEROA Primary Care Provider Encounter Details Date Type Department Care Team Description 11/15/2015 Telephone Radiation Oncology at Emma Bro RN [address] [phone] Social History Tobacco Use Types Packs/Day Years Used Date Smoking Tobacco: Every Day Cigarettes 0.5 37 e-Cigarettes Smokeless Tobacco: Never Alcohol Use Standard Drinks/Week Comments Yes 0 (1 standard drink = 0.6 oz pure alcoho l) very rare Sex Assigned at Date Recorded Not on file documented as of this encounter Miscellaneous Notes Telephone Encounter - Emma Bro RN - 11/15/2015 3:55 PM EDT Telephone call for Prior Authorization on zofran 4 mg take 1-2 tablets every 8 hours prn nausea vomiting. [place] approval # [id number] Valid August 17, 2015- November 14, 2016. I called Shraddha with this information and will inform Domonique James APRN with this note. documented in this encounter Plan of Treatment Not on filedocumented as of this encounter Visit Diagnoses Not on filedocumented in this encounter Care Teams Tank Refinisher Relationship Specialty Start Date End Date Michela Stevenson APRN PCP - General 04/29/10 06/07/16 documented as of this encounter
--- OUTSIDE RECORDS SUMMARY | 2022-05-06 08:18 | XMS_ITS | Encounter Summary ---
:1960 Author Organization [facility] [place] [address] Care Team Providers Name Role Phone Michela Stevenson CAROLINA Primary Care Provider Encounter Details Date Type Department Care Team Description 05/30/2015 [place] [facility] [place] Montgomery [place] Left ankle pain [address] [place] [phone] ORTHOPAEDIC [phone] SURGERY [place], [place] [address] Social History Tobacco Use Types [...] Priority Date/Time Associated Diagnosis Comme nts XR ANKLE MIN 3 Routine 05/30/2015 11:45 AM Left ankle pain Res ults for this VIEWS LEFT EST procedure are i n the results section. documented in this encounter Results XR Ankle Minimum 3 Views Left (GENERIC) (05/30/2015 11:45 AM EST) Anatomical Region Laterality Modality Ankle Left Digital Radiography Specimen (Source) Anatomical Location Collection Method / Collectio n Time Received Time / Laterality Volume Impressions 05/30/2015 11:55 AM EST IMPRESSION: No significant osseous findings identifi ed. Narrative 05/30/2015 11:55 AM EST EXAMINATION: XR ANKLE MINIMUM 3 VIEWS LEFT CLINICAL HISTORY: l ankle pain TECHNIQUE: 3 views of the left ankle. COMPARISON: None FINDINGS: The osseous structures appear normally mineralized and aligned. The ankle mortise is congruent. No fracture or other significant osseous abnormality is seen. Subcutaneous soft tissue calcif ication ventral to the distal tibia, centrally lucent, suggestive of a phlebo lith. A few other tiny soft tissue calcifications are seen. No joint effusi on is identified. There is a tiny plantar calcaneal heel spur developing. Metallic ring seen by the second toe. Procedure Note Jackie Muse MD - 05/30/2015Formatt ing of this note might be different from the original. EXAMINATION: XR ANKLE MINIMUM 3 VIEWS LE FT CLINICAL HISTORY: l ankle pain TECHNIQUE: 3 views of the left ankle. COMPARISON: None FINDINGS: The osseous structures appear normally mineralized and aligned. The ankle mortise is congruent. No fracture or other significant osseous abnormality is seen. Subcutaneous soft tissue calcif ication ventral to the distal tibia, centrally lucent, suggestive of a phlebo lith. A few other tiny soft tissue calcifications are seen. No joint effusi on is identified. There is a tiny plantar calcaneal heel spur developing. Metallic ring seen by the second toe. IMPRESSION IMPRESSION: No significant osseous findings identifi ed. Jean Montgomery MD IMG DX ORDERABLES documented in this encounter Visit Diagnoses Diagnosis Left ankle pain Pain in joint, ankle and foot documented in this encounter Care Teams Ingredient Scaler Relationship Specialty Start Date End Date Michela Stevenson APRN PCP - General 04/29/10 06/07/16 documented as of this encounter
--- OUTSIDE RECORDS SUMMARY | 2022-05-06 08:18 | XMS_ITS | Encounter Summary ---
:1960 Author Organization [facility] [place] [address] Care Team Providers Name Role Phone Michela Stevenson APRN Primary Care Provider Encounter Details Date Type Department Care Team Description 04/09/2015 [place], female, [facility] PEER FINANCIAL COUNSELOR right [address] [place] [id number] [phone] (Wo rk) Social History Tobacco Use Types [...] as of this encounter Visit Diagnoses Diagnosis Breast cancer, female, right documented in this encounter Care Teams Beauty Parlor Cleaner Relationship Specialty Start Date End Date Michela Stevenson APRN PCP - General 04/29/10 06/07/16 documented as of this encounter
--- OUTSIDE RECORDS SUMMARY | 2022-05-06 08:18 | XMS_ITS | Encounter Summary ---
:1960 Author Organization [facility] [place] [address] Care Team Providers Name Role Phone Michela Stevenson APRN Primary Care Provider Reason for Visit Reason Comments Eye Exam TANYA: [address] Ward Blurred Vision OU since breaking her glasse s Spots and/or Floaters OU, which seem increased Flashes Of Light OU, which seem increased Dry Eye OS x 2 years Vision (Optometry) (Routine) - Closed Specialty Diagnoses / Procedures Referred By Contact Refer red To Contact Ophthalmology Diagnoses Cataracts, bilateral Domonique James APRN [facility] Ophthalmology [address] [facility] [place] [address] [place] [address] Referral ID Status Reason Start Date Expiration Date Visits V isits Requested Authorized [id number] Closed Consult, 01/16/2016 01/15/2017 1 1 Test & Treat Encounter Details Date Type Department Care Team Description 2016 Office Visit Ophthalmology [facility] Keturah Lin, Combined forms of age-relate d cataract of both eyes; [facility] OD Optic nerve drusen, bilateral; [facility] [place] [address] CENTER [phone] OPHTHALMOLOGY DEPT [place], [place] [address] Social History Tobacco Use Types Packs/Day Years Used Date Smoking Tobacco: Former Cigarettes Quit : 01/27/2016 e-Cigarettes Smokeless Tobacco: Never Alcohol Use Standard Drinks/Week Comments Yes 0 (1 standard drink = 0.6 oz pure alcoho l) very rare Sex Assigned at Date Recorded Not on file documented as of this encounter Progress Notes Keturah Lin, OD - 2016 10:00 AM EDT Encounter Diagnoses Name Primary? Combined forms of age-related cataract of both eyes ??? Optic nerve drusen, bilateral ??? Refractive error Shraddha Chavez is a 55 y.o. with the following ophthalmic problems: Assessment and Plan: Cataracts OU - Monitor for now, sooner with changes in vision. Optic Nerve Drusen OU - Noted. 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 - Noted. Refractive Error OU - Rx given today - Cautioned about driving - Findings and concerns discussed with Shraddha and she expressed understanding. -Upon Return CEE in 1 year, sooner with changes in sx/vision. Eyeglass Final Rx Eyeglass Final Rx Sphere Cylinder Williams Add Right -1.00 +1.25 007 +2.25 Left -0.75 +2.00 168 +2.25 Expiration Date: 2018 PD 59 documented in this encounter Plan of Treatment Scheduled Referrals Name Type Priority Associated Diagnoses Order S chedule Referral to Outpatient Referral Routine Cataracts, bilateral Ordered: Optometry 01/16/2016 documented as of this encounter Visit Diagnoses Diagnosis Combined forms of age-related cataract o f both eyes Other and combined forms of senile catar act Optic nerve drusen, bilateral Refractive error Unspecified disorder of refraction and a ccommodation documented in this encounter Care Teams Strong Nitric Operator Relationship Specialty Start Date End Date Michela Stevenson APRN PCP - General 04/29/10 06/07/16 documented as of this encounter
--- OUTSIDE RECORDS SUMMARY | 2022-05-06 08:18 | XMS_ITS | Encounter Summary ---
:1960 Author Organization [facility] Address One [facility] [address] Care Team Providers Name Role Phone Unavailable Primary Care Provider Unavailable Reason for Visit Reason Comments Aftercare Of Tjr left TKR 10/31/2008 Encounter Details Date Type Department Care Team Description 07/01/2016 Office Visit Orthopaedics at [facility] Levy Altamirano Dislocation, patella [facility] MD Rikki closed, right, [address] [place] [address] CENTER [phone] ORTHOPAEDIC SURGERY [place], [place] [address] Social History Tobacco Use Types [...] Sign Reading Time Taken Comments Blood Pressure 120/57 07/01/2016 9:23 AM EST Pulse 80 07/01/2016 9:23 AM EST Temperature - - Respiratory Rate - - Oxygen Saturation - - Inhaled Oxygen Concentration - - Weight 91.6 kg (202 lb) 07/01/2016 9:23 AM EST Height 160 cm (5' 3) 07/01/2016 9:23 AM EST Body Mass Index 35.78 07/01/2016 9:23 AM EST documented in this encounter Progress Notes Levy Altamirano - 07/01/2016 9:30 AM EST Mrs. Chavez is a 56-year-old female who is 7 years status post a right total knee replacement specifically a posterior cruciate retaining porous rotating platform. She had a similar procedure on the left side in 2006. She was sitting in her sofa with no complaints with either knee, but as she was getting up, she said she went one way, her knee went the other and something happened at the knee. She felt something give and move and could not bear any weight. She was then somehow gotten to the Emergency Room where x-rays were taken and she was now referred her for Orthopedic evaluation. All of this occurred on the of the month. On her physical exam, she is sitting in a wheelchair with a knee immobilizer that she says just is not helping. She describes feeling something that she can feel on the outer portion of her knee and when she touches it, it moves. On occasion in the immobilizer since she still has 10 or 15 degrees of motion in this, she can sometimes feel this thing moving around inside the knee. She has not been ill and again she had no premorbid complaints in this knee status post a successful total knee replacement. On her physical examination, I took the splint off. There was just some minor fullness suggested, but she certainly had tenderness over the superior pole of the patella, but she did not really demonstrate any significant pain or apprehension when I moved it. In fact, she had excellent wzmfvqyu-sky-vtakfbn capability, and there was certainly no defect that I could appreciate on palpation. With flexion and extension, which I did passively, she had a very smooth articulation, and I could not really reproduce her suggestion of something moving inside the joint. I did review her x-rays and there was a piece of bone that one can see lateral to the femoral condyle on the AP of the film that was taken recently. It was the only film that I could see that on, and on the lateral x-ray, one can see a small fracture through the superior pole of the patella, which is oblique and somewhat comminuted. A sunrise view shows that the patellar implant is still perfectly intact, and the patella sits very nicely in the femoral trochlea. ASSESSMENT: Dislocation or subluxation of the patella. She may have knocked off a small ossicle or peripheral osteophyte from the patella, but it certainly has not compromised the extension capability. I think we will just lock her up for about 3 to 4 weeks to allow the soft tissue and this fragment to hopefully adhere to the synovium, and then we will get her going. I certainly would not go fetching this under the circumstances unless it became a mechanical problem despite a period of conservative rest. A Juanjose will be given today. I will bring her back in 4 weeks' time, get her out of the [place] and get her going with some physical therapy that I think she could probably do on her own cognizance. ADDENDUM : weight bearing in juanjose full without pain. CC: MARIAH Paz documented in this encounter Plan of Treatment Not on filedocumented as of this encounter Visit Diagnoses Diagnosis Dislocation, patella closed, right, init ial encounter documented in this encounter
--- OUTSIDE RECORDS SUMMARY | 2022-05-06 08:18 | XMS_ITS | Encounter Summary ---
:1960 Author Organization [facility] [place] [address] Care Team Providers Name Role Phone Unavailable Primary Care Provider Unavailable Reason for Visit Reason Onset Date Comments Medication Refill 07/20/2016 Encounter Details Date Type Department Care Team Description 07/20/2016 Refill Hematology/Oncology at [place] MD Malignant neoplasm of [address] right female breast, [address] [place] [address] [place] [address] breast [id number] [phone] Social History Tobacco Use Types Packs/Day Years [...] Diagnosis Malignant neoplasm of right female breas t, unspecified site of breast documented in this encounter
--- OUTSIDE RECORDS SUMMARY | 2022-05-06 08:18 | XMS_ITS | Encounter Summary ---
:1960 Author Organization [facility] [place] [address] Care Team Providers Name Role Phone Michela Stevenson CAROLINA Primary Care Provider Reason for Referral Surgical (Routine) - Closed Specialty Diagnoses / Procedures Referred By Contact Refer red To Contact Orthopaedics Diagnoses Radiculopathy of lumbar region Go Godwin DO Ball, [place] A, MD [facility] [place] [address] Fax: Referral ID Status Reason Start Date Expiration Date Visits V isits Requested Authorized [id number] Closed Consult, 02/18/2016 02/17/2017 1 1 Test & Treat Encounter Details Date Type Department Care Team Description 02/18/2016 Orders Only Pain Management at [facility] Godwin DO Radiculopathy of lumbar [facility] [place] [address] [phone] Social History Tobacco Use Types Packs/Day Years [...] Diagnoses Order S chedule Referral to Outpatient Routine Radiculopathy of Ordered: Neurosurgery Referral lumbar region 02/18/2016 documented as of this encounter Visit Diagnoses Diagnosis Radiculopathy of lumbar region Thoracic or lumbosacral neuritis or radi culitis, unspecified documented in this encounter Care Teams Tumble Tailstock Turret Lathe Operator Relationship Specialty Start Date End Date Michela Stevenson APRN PCP - General 04/29/10 06/07/16 documented as of this encounter
--- OUTSIDE RECORDS SUMMARY | 2022-05-06 08:18 | XMS_ITS | Encounter Summary ---
:1960 Author Organization [facility] [place] [address] Care Team Providers Name Role Phone Michela Stevenson CAROLINA Primary Care Provider Encounter Details Date Type Department Care Team Description 09/09/2015 Hospital Encounter XRay at [facility] [place] Saez, Low back pain, [address] [place] non-specific [facility] [address] [place] [phone] [place] [address] Social History Tobacco Use Types Packs/Day Years [...] Priority Date/Time Associated Diagnosis Comme nts XR LUMBAR SPINE 2 Routine 09/09/2015 10:06 AM Low back pain, R esults for this OR 3 VIEWS EDT non-specific procedure are i n the results section. documented in this encounter Results XR Lumbar Spine 2 [...] previous MRI of the L-spine performed at [facility] dated 07/13/2015 was reviewed. FINDINGS: No [...] ap pears fairly well preserved. Procedure Note Craig Rowan DO - 09/09/2015Format ting of this note [...] previous MRI of the L-spine performed at [facility] dated 07/13/2015 was reviewed. FINDINGS: No [...] non-specific documented in this encounter Care Teams Hair And Makeup Designer Relationship Specialty Start Date End Date Michela Stevenson APRN PCP - General 04/29/10 06/07/16 documented as of this encounter
--- OUTSIDE RECORDS SUMMARY | 2022-05-06 08:18 | XMS_ITS | Encounter Summary ---
:1960 Author Organization [facility] Address [place] [address] Care Team Providers Name Role Phone Michela Stevenson APRN Primary Care Provider Encounter Details Date Type Department Care Team Description 04/21/2016 Orders Only Hematology Oncology at [facility], Rikki Bolivar alignant neoplasm [facility] RN involving both nipple [address] and areola of right [place], [place] breast [place] [address] Social History Tobacco Use Types Packs/Day Years [...] female documented in this encounter Care Teams Water Leak Repairer Relationship Specialty Start Date End Date Michela Stevenson APRN PCP - General 04/29/10 06/07/16 documented as of this encounter
--- OUTSIDE RECORDS SUMMARY | 2022-05-06 08:18 | XMS_ITS | Encounter Summary ---
:1960 Author Organization [facility] [place] [address] Care Team Providers Name Role Phone Zenaida Gupta APRN Primary Care Provider Reason for Visit Reason Comments Medication Refill Encounter Details Date Type Department Care Team Description 04/21/2016 [facility] [address] [place] [address] [place] [address] [phone] (Wo rk) Social History Tobacco Use Types [...] on filedocumented in this encounter Care Teams Area Operations Manager Relationship Specialty Start Date End Date Zenaida Gupta APRN PCP - General Family Medicine 01/17/[address] [place], [place] [id number] documented as of this encounter
--- OUTSIDE RECORDS SUMMARY | 2022-05-06 08:18 | XMS_ITS | Encounter Summary ---
:1960 Author Organization [facility] Address [place] [address] Care Team Providers Name Role Phone Noris Tuttle APRN Primary Care Provider Reason for Visit Reason Comments Eye Exam Encounter Details Date Type Department Care Team Description 2017 Office Visit Ophthalmology at [facility] Keturah Lin, Combined forms of age-relate d cataract of both eyes; [facility] OD Optic nerve drusen, bilateral; Drive [facility] Blepharitis of both upper an d lower eyelid; [place] [address] Refractive error [phone] OPHTHALMOLOGY DEPT [place], [place] [address] Social History Tobacco Use Types Packs/Day Years Used Date Smoking Tobacco: Every Day Cigarettes 1 e-Cigarettes Smokeless Tobacco: Never Alcohol Use Standard Drinks/Week Comments Yes 0 (1 standard drink = 0.6 oz pure alcoho l) very rare Sex Assigned at Date Recorded Not on file documented as of this encounter Patient Instructions Patient InstructionsKeturah Lin, OD - 2017 10:00 AM EDT BLEPHARITIS As we discussed, you have dryness of your eyes/eyelids that is causing the chronic irritation. Warm compresses with a clean washcloth followed by lid scrubs with either Lid Care or similar pre-medicate guaze pads or just dilute Judah's Baby Shampoo should help. As this is a chronic condition that took a long time to get, it won't go away overnight. Keep up with the treatment daily for at least a few weeks then try reducing to just a few times per week afterwards. Blepharitis is a common condition where the glands of the eyelids become blocked or inflamed. These glands secrete oils that are necessary for maintaining a healthy tear film over the eye. If the glands become clogged and inflamed, your eyes may feel dry, irritated, scratchy or burning. Other symptomsare redness, stickiness, grittiness, tearing and a ???film?? over the vision. If the condition is not treated, you may develop styes, chalazions (hard bumps on the lids) or lid scarring and loss of eyelashes. Blepharitis is often found in people that have rosacea which is a skin condition that consists of redness of the cheeks, forehead and nose. Fortunately, blepharitis is a very treatable condition. The mainstay of treatment is good daily cleansing of the eyelids and warm compresses. Here are the instructions: - Wash your hands and fingertips well. - Use a clean wash cloth soaked in hot (but not burning) water. Hold the cloth gently against your closed eyes and reheat the cloth every 2-3 minutes. Massage above the eyelids with your eyes closed. - After 10 minutes of application, with your eyes closed, take your fingers and gently rub across the lashes, freeing up any accumulated debris. Do this for 15- 30 seconds. Avoid touching the eyeball directly. - Rinse the lashes with water and pat dry. - You should do the above cleaning at least twice a day. The following are other things you can do for blepharitis. All products are sold over the counter. There are products called: ???SteriLid?? or ???Ocuscrub?? that can also be used on the fingertips for cleansing the lashes. These help to actually kill the bacteria that sometimes live on the lashes.Lid scrubs with either Lid Care or similar pre-medicate guaze pads or just dilute Judah's Baby Shampoo should help. Some people find a dietary capsule supplement of [place] 3 Fatty Acids (EPA 450mg and DHA 300mg) and Flaxseed Oil (1000mg) help their eye comfort. Please take 4424-9535 mg of omega 3 fatty acids per day.These products can be bought in a health food store or there is a capsule called ???TheraTears Nutrition?? containing these ingredients. (If you have medical conditions, you should check with your primary care physician to make sure it is safe for you to use this product). For dry eye, use AM and PM PRESERVATIVE FREE drops noted below 4 to 6 times per day. Do NOT use ???Visine or anything that says ???gets the red out?? . AM Drops (Use 4-6 times per day) - DAYTIME DROPS TheraTears Refresh GenTeal Systane PM Drops (Use once at night in both eyes before you go to bed) - NIGHT-TIME DROPS Refresh PM Systane Gel GenTeal Gel Usually your eye comfort will improve after 4-6 weeks of treatment. If not, your eye doctor will discuss the situation with you. This is a chronic condition that took a long time to get, it won't go away overnight. Keep up with the treatment daily for at least a few weeks then try reducing to just a few times per week afterwards. documented in this encounter Progress Notes Keturah Lin, OD - 2017 10:00 AM EDT Encounter Diagnoses Name Primary? Combined forms of age-related cataract of both eyes ??? Optic nerve drusen, bilateral ??? 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 Refractive error Shraddha Chavez is a 57 y.o. with the following ophthalmic problems: Assessment and Plan: Cataracts OU - Monitor for now, sooner with changes in vision. Optic Nerve Drusen OU - Noted. 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 - Noted. Anterior & MGD-related Posterior Blepharitis OU contributing to Dry Eye OU - Advised lid hygiene with dilute baby shampoo or OcuSoft wipes & warm compress BID 5-10 min OUwith lid massage - Advised PF AT's Refresh, Systane or Thera Tears QID-PRN OU & Refesh PM alphonso QHS OU. - Pt ed re chronicity of condition and need for continued lid maintenance. RTC w/ worsening sx. Refractive Error OU - Rx given today - Cautioned about driving - Findings and concerns discussed with Shraddha and she expressed understanding. -Upon Return CEE in 1 year, sooner with changes in sx/vision. Eyeglass Final Rx Eyeglass Final Rx Sphere Cylinder [place] Add Right -1.00 +1.25 005 +2.25 Left -1.00 +2.00 170 +2.25 Expiration Date: 01/29/2019 documented in this encounter Plan of Treatment Not on filedocumented as of this encounter Visit Diagnoses Diagnosis Combined forms of age-related cataract o f both eyes Other and combined forms of senile catar act Optic nerve drusen, bilateral Blepharitis of both upper and lower eyel id Refractive error Unspecified disorder of refraction and a ccommodation documented in this encounter Care Teams Commodity Specialist Relationship Specialty Start Date End Date Noris Tuttle APRN PCP - General Family Medicine 01/28/17 01/04/19 documented as of this encounter
--- OUTSIDE RECORDS SUMMARY | 2022-05-06 08:18 | XMS_ITS | Encounter Summary ---
:1960 Author Organization [facility] Address [address] [place] [address] Care Team Providers Name Role Phone Unavailable Primary Care Provider Unavailable Encounter Details Date Type Department Care Team Description 01/08/2017 Office Visit Hematology/Oncology Consuelo Haney, Svetlana gnmedhat neoplasm at [facility] COMPOSITION FLOOR SETTER involving both nipple [address] and areola of right [place], [place] [facility] breast in female, [address] [place] [address] unspecified estrogen [phone] (Wo rk) receptor status Social History Tobacco Use Types Packs/Day Years Used Date Smoking Tobacco: Every Day Cigarettes 1 e-Cigarettes Smokeless Tobacco: Never Alcohol Use Standard Drinks/Week Comments Yes 0 (1 standard drink = 0.6 oz pure alcoho l) very rare Sex Assigned at Date Recorded Not on file documented as of this encounter Last Filed Vital Signs Vital Sign Reading Time Taken Comments Blood Pressure 119/95 01/08/2017 12:59 PM EDT Pulse 85 01/08/2017 12:59 PM EDT Temperature 36.8 ??C (98.2 ??F) 01/08/2017 12:59 PM EDT Respiratory Rate 16 01/08/2017 12:59 PM EDT Oxygen Saturation 98% 01/08/2017 12:59 PM EDT Inhaled Oxygen Concentration - - Weight 96.3 kg (212 lb 6.4 oz) 01/08/2017 12:59 PM EDT Height 160 cm (5' 3) 01/08/2017 12:59 PM EDT Body Mass Index 37.62 01/08/2017 12:59 PM EDT documented in this encounter Progress Notes Consuelo Haney, COMPOSITION FLOOR SETTER - 01/08/2017 1:00 PM EDT HPI Right breast cancer: stage I, pT1C [...] Shraddha comes in today for followup now 7rs from dx. REVIEW OF SYSTEMS: Otherwise quite negative. Current Outpatient Prescriptions on File Prior to Visit Medication Sig Dispense Refill ??? magnesium oxide (MAG-OX) 400 mg Tablet Take 400 mg by mouth daily. ??? loratadine (CLARITIN) 10 mg Tablet Take 10 mg by mouth daily. ??? tamoxifen (NOLVADEX) 20 mg Tablet Take 1 tablet by mouth daily. 90 tablet 3 ??? b complex vitamins (VITAMINS B COMPLEX) Capsule One tab daily 90 capsule 3 ??? dexlansoprazole (DEXILANT) 60 [...] nodes normal Neurologic: Normal; nl patellar reflexes; critical care educator grossly intact Vitals Pulse 85 Temp 36.8 ??C (98.2 ??F) (Oral) Resp 16 Ht 160 cm (5' 3) Wt 96.3 kg (212 lb6.4 oz) SpO2 98% BMI 37.62 kg/m2 Weight Wt Readings from Last 3 Encounters: 01/08/17 96.3 kg (212 lb 6.4 oz) 11/19/16 95.6 kg (210 lb 12.8 oz) 07/29/16 91.6 kg (202 lb) Mammogram at [facility] on 06/17/15 negative with benign findings - due again 06/2016 Lab: 12/31/16 CBC: WBC 7.54 hemoglobin 13.6 platelets 233 CMP: Calcium 9.1 glucose 99 BUN 16 creatinine 1.01 total protein 7.4 albumin 3.8 total bili 0.33 alkaline phosphatase 51 sodium 142 potassium 4.4 AST 25 ALT 32 ASSESSMENT/PLAN: Shraddha is doing well with no evidence of recurrent breast cancer now 7 years after her primary treatment and continuing hormone treatment with tamoxifen. She had questions about her original pathology which I reviewed with her today. She is doing well with no apparent recurrence and no sx of her AVM. Plan to move to yearly visits atthis point per NCCN guidelines. Consuelo Haney, MSN, INFORMATION DEVELOPER, AOCN Hematology/Oncology Nurse Practitioner [place], [place] [phone] Medical Oncology follow-up is based on ASCO guidelines which indicates physical examinations should be performed every 3 to 6 months for the first 3 years; every 6 to 12 months for years 4 and 5 and annually thereafter. Http://jco.ascopubs.org/content/[email or web address].[email or web address].html Recommendations for Breast Cancer Follow-Up and Management [...] nipple and areola of right breast in female, unspecified estrogen receptor status documented in this encounter
--- OUTSIDE RECORDS SUMMARY | 2022-05-06 08:18 | XMS_ITS | Encounter Summary ---
:1960 Author Organization [facility] [place] [address] Care Team Providers Name Role Phone Michela Stevenson APRN Primary Care Provider Encounter Details Date Type Department Care Team Description 08/23/2014 Orders Only [facility] [place] mal[facility] (AVM) [address] [place] [phone] Social History Tobacco Use Types Packs/Day Years [...] site documented in this encounter Care Teams Cable Splicer Relationship Specialty Start Date End Date Michela Stevenson APRN PCP - General 04/29/10 06/07/16 documented as of this encounter
--- OUTSIDE RECORDS SUMMARY | 2022-05-06 08:18 | XMS_ITS | Encounter Summary ---
:1960 Author Organization [facility] [place] [address] Care Team Providers Name Role Phone Unavailable Primary Care Provider Unavailable Reason for Visit Reason Comments Radiation Follow-up AVM Encounter Details Date Type Department Care Team Description 11/19/2016 Office Visit Radiation Oncology Domonique James, Arteri ovenous at [facility] INVENTORY COORDINATOR malformation (AVM) [address] [place], [place] RADIATION ONCOL OGY [address] [place], [place] [phone] Social History Tobacco Use Types Packs/Day Years Used Date Smoking Tobacco: Every Day Cigarettes 1 e-Cigarettes Smokeless Tobacco: Never Alcohol Use Standard Drinks/Week Comments Yes 0 (1 standard drink = 0.6 oz pure alcoho l) very rare Sex Assigned at Date Recorded Not on file documented as of this encounter Last Filed Vital Signs Vital Sign Reading Time Taken Comments Blood Pressure 126/80 11/19/2016 10:37 AM EDT Pulse 80 11/19/2016 10:37 AM EDT Temperature 37.1 ??C (98.8 ??F) 11/19/2016 10:37 AM EDT Respiratory Rate 18 11/19/2016 10:37 AM EDT Oxygen Saturation 98% 11/19/2016 10:37 AM EDT Inhaled Oxygen Concentration - - Weight 95.6 kg (210 lb 12.8 oz) 11/19/2016 10:37 AM EDT Height 160 cm (5' 2.99) 11/19/2016 10:37 AM copied EDT Body Mass Index 37.35 11/19/2016 10:37 AM EDT documented in this encounter Progress Notes Domonique James, INVENTORY COORDINATOR - 11/19/2016 10:30 AM EDT Patient ID: Shraddha Chavez is a 56 y.o. female who is being seen in [...] And Vomiting ??? Mobic [Meloxicam] rash Medications 11/19/16 1115 Medication Sig Taking? magnesium oxide (MAG-OX) 400 mg Tablet Take 400 mg by mouth daily. Yes loratadine (CLARITIN) 10 mg Tablet Take 10 mg by mouth daily. Yes tamoxifen (NOLVADEX) 20 mg Tablet Take 1 tablet by mouth daily. Yes b complex vitamins (VITAMINS B COMPLEX) Capsule One tab daily Yes dexlansoprazole (DEXILANT) 60 mg Cap, Delayed Rel., Multiphasic Take 60 mg by mouth daily. Yes zofran 4 mg PRN Advance Directive: on file Interim History: Shraddha reports that there was a recent family tragedy. Her first great granddaughter was born on nd on that day. This was devastating to everyone in the family but especially for her grandsonDillon. In regards to her overall health she had been doing fairly well. She has been having some muscle cramps and was recently started on magnesium. She had a repeat MRI which we reviewed and shows no change. Michela reports that her previous Sx of persistent nausea occurs occasionally and is manageable with zofran PRN. She reports occ dizziness, no falls. She has intermittent headaches. She had an eye exam since she was last seen in clinic and vision is fine. Review of Systems Constitutional: Negative. Negative for activity change, appetite change, chills, diaphoresis, fatigue, fever and unexpected weight change. Eyes: Negative. Negative for visual disturbance. Next eye exam in January. Respiratory: Negative. Negative for cough, chest tightness and shortness of breath. Patient continues to smoke- 5 Cigarettes a day. Cardiovascular: Negative. Negative for palpitations and leg swelling. Gastrointestinal: Positive for nausea. Negative for abdominal pain, constipation, diarrhea and vomiting. See interim history Intermittent nausea Genitourinary: Negative. Musculoskeletal: Positive for arthralgias. + muscle cramping Skin: Negative. Neurological: Positive for headaches. Negative for dizziness, speech difficulty and weakness. Intermittent headaches --manageable. --some increase since the of her great grand daughter. Hematological: Negative. Psychiatric/Behavioral: Positive for sleep disturbance. Unchanged sleep disturbance Grieving the of her first great grand daughter who at time of Vitals: 11/19/16 1037 BP: 126/80 Patient Position: Sitting Pulse: 80 Resp: 18 Temp: 37.1 ??C (98.8 ??F) TempSrc: Oral SpO2: 98% Weight: 95.6 kg (210 lb 12.8 oz) Height: 160 cm (5' 2.99) Objective: Physical Exam Constitutional: She is oriented [...] has no rales. She exhibits no tenderness. Abdominal: Soft. Bowel sounds are normal. She exhibits no distension. Musculoskeletal: Normal range of motion. She exhibits [...] no seizure activity. Coordination normal. Tandem walking normal Skin: Skin is warm and dry. No rash noted. She is not diaphoretic. No erythema. No pallor. Psychiatric: Her behavior is normal. Judgment and thought content normal. Vitals reviewed. 11/18/2016- --brain MRI--stable post treatment changes. No change 11/10/2016-- usfbvrx=179, BUN=14, CREAT=0.97, LP=577, K=3.9, WV=212, CA=8.5, AST=27, ALT=34, ALK P=66,T, BILI=0.15, ALB, 3.7, PROT=6.6, MAG=1.7 Assessment and Plan: Shraddha Chavez is a pleasant 56 year old woman with history AVM treated with radiation therapy SRS 18Gy on 08/12/2010. Her recent MRI is stable. Post treatment she developed radiation necrosis. She was treated with hyperbaric oxygen therapy withdecreased symptoms of persistent headache. She has had intermittent nausea and this appears to be controlled well at this time and she uses zofran as needed. Her exam today was negative for any concerning findings. We will repeat brain MRI in one year for Surveillance and she will be seen in clinic for scheduled follow-up. documented in this encounter Plan of Treatment Not on filedocumented as of this encounter Procedures Procedure Name Priority Date/Time Associated Diagnosis Comme nts LAB SCAN 12/31/2016 12:00 AM Results for this EDT procedure are i n the results section . MRI/MRA SCAN 11/17/2016 12:00 AM Results for this EDT procedure are i n the results section . documented in this encounter Results SCAN DOC: LAB (12/31/2016 12:00 AM EDT) Narrative 12/31/2016 12:00 AM EDT This result has an attachment that is no t available. Ordered by an unspecified provider. Scanning Provider MEDIA MGR SCAN EXT ORDR/RSLT SCAN DOC: MRI/MRA (11/17/2016 12:00 AM EDT) Anatomical Region Laterality Modality Other Narrative 11/17/2016 12:00 AM EDT This result has an attachment that is no t available. Ordered by an unspecified provider. 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
--- OUTSIDE RECORDS SUMMARY | 2022-05-06 08:18 | XMS_ITS | Encounter Summary ---
:1960 Author Organization [facility] [place] [address] Care Team Providers Name Role Phone Michela Stevenson [place] Primary Care Provider Reason for Visit Reason Comments Breast Cancer Encounter Details Date Type Department Care Team Description 12/23/2015 Office Visit Hematology/Oncology Marisela Lugo, Mal ignant neoplasm of at [facility] upper-outer quadrant [address] [place] [phone] (Wo rk) Social History Tobacco Use Types [...] Sign Reading Time Taken Comments Blood Pressure 124/68 12/23/2015 1:59 PM EDT Pulse 81 12/23/2015 1:59 PM EDT Temperature 36.6 ??C (97.9 ??F) 12/23/2015 1:59 PM EDT Respiratory Rate 16 12/23/2015 1:59 PM EDT Oxygen Saturation 99% 12/23/2015 1:59 PM EDT Inhaled Oxygen Concentration - - Weight 92.8 kg (204 lb 8 oz) 12/23/2015 1:59 PM EDT Height 160 cm (5' 2.99) 12/23/2015 1:59 PM EDT copied Body Mass Index 36.23 12/23/2015 1:59 PM EDT documented in this encounter Progress Notes Marisela Lugo MD - 12/23/2015 2:00 PM EDT DIAGNOSIS: 1. 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 ER positive, HER-2/viktoria negative, with one lymph node microscopically positive, other two negative. She had arthralgias and myalgias on aromatase inhibitors and is currently on tamoxifen for a planned 10years . 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 SUBJECTIVE: Shraddha comes in today for followup. It has been 6 years since her chemotherapy and radiation therapy and the treatment of her breast cancer. She has been off her estrogen anjelica now a year. Overall she is doing well with no issues or problem. She had small area underneath her left breast that she has been picking on and trying to pop and we talked about this being a small skin tag and to leave it alone. She is fine with that. REVIEW OF SYSTEMS: Otherwise quite negative. Current Outpatient Prescriptions on File Prior to Visit Medication Sig Dispense Refill ??? VITAMINS B COMPLEX Capsule take 1 capsule by mouth daily 90 capsule 3 ??? fexofenadine (DANIELA) 180 mg Tablet Take 180 mg by mouth daily. ??? tamoxifen (NOLVADEX) 20 mg Tablet Take 1 tablet by mouth daily. 90 tablet 3 ??? dexlansoprazole (DEXILANT) 60 mg Cap, Delayed Rel., Multiphasic Take 60 mg by mouth daily. ??? ondansetron (ZOFRAN) 4 mg Tablet Take 1 tablet by mouth every 8 hours as needed for Nausea (TAKEONE OR TWO TABLETS EVERY 8 HOURS NEEDED FOR NAUSEA AND VOMITING). (Patient not taking: Reported on 12/23/2015) 30 tablet 3 No current facility-administered medications on file prior [...] Chronic Headaches. Hematological: Negative for adenopathy. BP 124/68 (Patient Position: Sitting) Pulse 81 Temp 36.6 ??C (97.9 ??F) (Oral) Resp 16 Ht 160 cm (5'2.99) Comment: copied Wt 92.8 kg (204 lb 8 oz) SpO2 99% BMI 36.23 kg/m2 Head: Normocephalic Eyes: PERRL, conjunctiva/corneas clear benign, [...] supraclavicular, and axillary nodes normal Neurologic: Normal Mammogram at [facility] on 06/17/15 negative with benign fidings Laboratory is reviewed. CBC shows a white count of 6.53, hemoglobin 13.2, hematocrit 39.8, platelet count 237. CMP shows normal electrolytes, creatinine of 0.93. Liver tests are normal with an ALP of 50 and a calcium of 8.8. ASSESSMENT/PLAN: Shraddha is doing well with no evidence of recurrent breast cancer now 6 years after her primary treatment and 1 year after finishing 5 years of an estrogen anjelica. She is doing well with no apparent recurrence. We will see her back in a year with a CBC and CMP, sooner if there is issues or problems in the interim. She will continue to get her yearly mammograms in June at [facility]. documented in this encounter Miscellaneous Notes Addendum Note - Marisela Lugo MD - 12/23/2015 2:43 PM EDT Addended by: MARISELA LUGO on: 12/23/2015 02:43 PM Modules accepted: Level of Service documented in this encounter Plan of Treatment Not on filedocumented as of this encounter Visit Diagnoses Diagnosis Malignant neoplasm of upper-outer quadra nt of left female breast Malignant neoplasm of upper-outer quadra nt of female breast documented in this encounter Care Teams Touring Production Manager Relationship Specialty Start Date End Date Michela Stevenson APRN PCP - General 04/29/10 06/07/16 documented as of this encounter
--- OUTSIDE RECORDS SUMMARY | 2022-05-06 08:18 | XMS_ITS | Encounter Summary ---
:1960 Author Organization [facility] [place] [address] Care Team Providers Name Role Phone Michela Stevenson [place] Primary Care Provider Encounter Details Date Type Department Care Team Description 03/24/2016 Hospital Encounter Radiology Library at [facility] silva Church MD [facility] [place] [address] [place] [address] [phone] (Wo rk) Social History Tobacco Use Types [...] 10 mg Tablet mouth. loratadine (CLARITIN) 10 mg Reported on 0 016 11/19/2016 Tablet 07/01/2016 fexofenadine (DANIELA) 180 Take 180 mg by 0 11/19/2016 mg Tablet mouth daily. tamoxifen (NOLVADEX) 20 mg Take 1 tablet by 90 tablet 3 07/20/2016 TabletIndications: mouth daily. Malignant neoplasm of right female breast documented as of this encounter Plan of Treatment Not on filedocumented as of this encounter Procedures Procedure Name Priority Date/Time Associated Diagnosis Comme nts FILM LIBRARY Routine 03/24/2016 12:00 AM Pain Results for this STORAGE ONLY CT EDT procedure ar e in ABDOMEN AND PELVIS the resul ts section. documented in this encounter Results Film Library- Storage Only CT Abdomen & Pelvis (03/24/2016 12:00 AM EDT) Specimen (Source) Anatomical Location Collection Method / Collectio n Time Received Time / Laterality Volume Narrative [facility] - 03/25/2016 10:13 AM EDT This exam is for storage only and is aut o-finalizing. Dayton Saez MD [facility] FILM LIBRARY ORDERABLES Performing Organization Address City/State/ZIP Code Phon e Number [place], [place] documented in this encounter Visit Diagnoses Diagnosis Pain Generalized pain documented in this encounter Care Teams Mill Beam Fitter Relationship Specialty Start Date End Date Michela Stevenson APRN PCP - General 04/29/10 06/07/16 documented as of this encounter
--- OUTSIDE RECORDS SUMMARY | 2022-05-06 08:18 | XMS_ITS | Encounter Summary ---
:1960 Author Organization [facility] [place] [address] Care Team Providers Name Role Phone Michela Stevenson APRN Primary Care Provider Reason for Referral Vision (Optometry) (Routine) - Closed Specialty Diagnoses / Procedures Referred By Contact Refer red To Contact Ophthalmology Diagnoses Cataracts, bilateral Domonique James APRN [facility] Ophthalmology [address] [place] [address] [place] [address] [place] [id number] Referral ID Status Reason Start Date Expiration Date Visits V isits Requested Authorized [id number] Closed Consult, 01/16/2016 01/15/2017 1 1 Test & Treat Encounter Details Date Type Department Care Team Description 01/16/2016 Orders Only Radiation Oncology at Domonique James, Cat aracts, bilateral [facility] [address] [place] [address] [place] RADIATION ONCOL OGY [address] [place], [place] [phone] (Wo rk) Social History Tobacco Use Types [...] as of this encounter Visit Diagnoses Diagnosis Cataracts, bilateral Unspecified cataract documented in this encounter Care Teams Moving Van Driver Relationship Specialty Start Date End Date Michela Stevenson APRN PCP - General 04/29/10 06/07/16 documented as of this encounter
--- OUTSIDE RECORDS SUMMARY | 2022-05-06 08:18 | XMS_ITS | Encounter Summary ---
:1960 Author Organization [facility] Address [facility] [place] [address] Care Team Providers Name Role Phone Unavailable Primary Care Provider Unavailable Encounter Details Date Type Department Care Team Description 10/19/2016 Orders Only Radiation Oncology at Domonique James, AVM (arteriovenous [facility] EXTERMINATOR HELPER TERMITE malformation) [address] [place] [address] [phone] (Wo rk) Social History Tobacco Use Types [...] as of this encounter Visit Diagnoses Diagnosis AVM (arteriovenous malformation) brain Congenital anomaly of cerebrovascular sy stem documented in this encounter
--- OUTSIDE RECORDS SUMMARY | 2022-05-06 08:18 | XMS_ITS | Encounter Summary ---
:1960 Author Organization [facility] Address [address] [place] [address] Care Team Providers Name Role Phone Michela Stevenson APRN Primary Care Provider Reason for Referral Physical Therapy (Routine) - Closed Specialty Diagnoses / Procedures Referred By Contact Refer red To Contact Physical Therapy Diagnoses Peroneal tendonitis, left Posterior tibial tendinitis of left leg Go Madsen, PA [facility] D [place] [address] Referral ID Status Reason Start Date Expiration Date Visits V isits Requested Authorized [id number] Closed Evaluate and 05/30/2015 11/26/2015 12 12 Treat Reason for Visit Reason Comments Left Ankle Pain Consultation (Routine) - Closed Specialty Diagnoses / Procedures Referred By Contact Refer red To Contact Orthopaedics Diagnoses left ankle pain Michela Stevenson, [facility] 3a TANKAGE GRINDER OPERATOR [facility] [place] [address] [place] [address] Referral ID Status Reason Start Date Expiration Visits Visits Date Requested Authorized [id number] Closed Connection 05/24/2015 05/23/2016 1 1 Center Encounter Details Date Type Department Care Team Description 05/30/2015 Office Visit Orthopaedics at [facility] Go Madsen, Posterior tibial tendinitis of left leg (Primary Dx); One [facility] JAJA Peroneal tendonitis, [place] [address] CENTER [phone] ORTHOPAEDIC SURGERY [place], [place] [address] Social History Tobacco Use Types Packs/Day Years Used Date Smoking Tobacco: Every Day Cigarettes 0.5 37 e-Cigarettes Smokeless Tobacco: Never Tobacco Cessation: Ready to Quit: No Alcohol Use Standard Drinks/Week Comments Yes 0 (1 standard drink = 0.6 oz pure alcoho l) very rare Sex Assigned at Date Recorded Not on file documented as of this encounter Last Filed Vital Signs Vital Sign Reading Time Taken Comments Blood Pressure 110/78 05/30/2015 12:32 PM EST Pulse 100 05/30/2015 12:32 PM EST Temperature - - Respiratory Rate - - Oxygen Saturation - - Inhaled Oxygen Concentration - - Weight 89.4 kg (197 lb) 05/30/2015 12:32 PM EST fully c lothed Height 160 cm (5' 3) 05/30/2015 12:32 PM EST verbal Body Mass Index 34.9 05/30/2015 12:32 PM EST documented in this encounter Progress Notes Go Madsen, JAJA - 05/30/2015 12:57 PM EST Chief complaint: Left ankle pain. History of present illness: Shraddha Chavez is a 55 y.o. year-old female who presents today with left ankle pain for multiple years. Patient denies inciting or traumatic event. She explains the pain issharp and intense with occasional clicking and popping over the anterior ankle. The pain also radiates to the medial and lateral aspects of her ankle and up the sides of the nicholas. She has pain specifically when weight bearing for long periods of time. Patient explains her toes are periodically numb. Patient denies past history of diabetes, B12 deficiency, and folate deficiency. She has never been worked up for a peripheral neuropathy, but explains she does have back pain and films with the disks in her back. Patient also complains of cramps in her feet throughout the day, which force her foot and ankle to point in certain directions. She feels otherwise well today denies fever, chills, night sweats. Patient denies calf pain, redness, and swelling. Patient has attempted no treatments for this. Activity modification and rest make her pain feel better. Pt denies progressive collapse of her arch. Ptdenies fevers, chills, night sweats, change in activity, or new exercise routines. Past medical history: Patient Active Problem List Diagnosis Date Noted ??? Posterior tibial tendinitis of left leg 05/30/2015 ??? Peroneal tendonitis 05/30/2015 ??? CERVANTES (headache) 03/23/2014 ??? Tachycardia, unspecified 10/09/2013 ??? Seborrheic keratosis 04/25/2013 ??? Back pain, chronic 04/13/2013 ??? Radiation injury of brain 08/26/2012 ??? Hx of total knee replacement 08/26/2012 ??? Allergy, drug 10/22/2011 ??? AVM (arteriovenous malformation) 01/23/2011 ??? Blurry vision 11/07/2010 ??? Breast CA 09/22/2010 History of blood clots or bleeding disorders: Denies Denies history of cardiac, lung, kidney, liver diease or diabetes Medications: VITAMINS B COMPLEX Capsule; fexofenadine (DANIELA) 180 mg Tablet; CYCLOBENZAPRINE HCL (FLEXERIL ORAL); tamoxifen (NOLVADEX) 20 mg Tablet; dexlansoprazole (DEXILANT) 60 mg Cap, Delayed Rel., Multiphasic Allergies: Allergies Allergen Reactions ??? Latex Itching and [...] Nausea And Vomiting ??? Mobic [Meloxicam] rash Social history: History Substance Use Topics ??? Smoking status: Current Every Day Smoker -- 0.50 packs/day for 37 years Types: Cigarettes, e-Cigarettes ??? Smokeless tobacco: Never Used ??? Alcohol Use: Yes Comment: very rare Review of systems: No chest pain or shortness of breath at baseline No fevers, night sweats or chills Questionnaire Responses: myD-H Hip & Knee 09/19/2014 MODEMS Satisfaction 100 VR12 - Physical Component Summary 23.16 VR12 - Mental Component Summary 69.5 PROMIS-10 General Health Very Good PROMIS-10 Quality of Life Very Good PROMIS-10 Physical Health Good PROMIS-10 Mental Health Very Good PROMIS-10 Social Activity and Relationship Satisfaction Very Good PROMIS-10 Social Roles at Home and Work Very Good PROMIS-10 Everyday Physical Activities Moderately PROMIS-10 Anxious or Depressed last 7 days Rarely PROMIS-10 Fatigue last 7 days Moderate PROMIS-10 Pain last 7 days 5 PROMIS PHYSICAL HEALTH SCORE (range 16-68) 39.8 PROMIS MENTAL HEALTH SCORE (range 21-68) 53.3 Physical Exam: No Apparent distress Left foot and ankle exam: Skin is intact without erythema, edema, ecchymosis, open draining wounds. No appreciable ankle effusion upon inspection. There is TTP over the medial malleolus, peroneal tendon distribution, and posterior tibialis distribution. No TTP over the lateral malleolus, navicular, base of the fifth, first MTP. Ankle range of motion is within normal limits. Patient reproduces pain all actively plantar flexing, inverting, and everting. 4/5 MMT and ankle PF, inversion, eversion, which resisted motion reproduces her pain. 5/5 MMT in DF. PT/DP pulses 1+. Superficial peroneal, deep peroneal, sural, saphenous, and tibial nerves intact to touch. Negative anterior drawer, subtalar tilt, axial load of MTs 1-5. Imaging: Personal review of the patient's imaging reveals: No fracture or displacement. Ankle mortise is intact. No evidence of stress reaction or fracture. Assessment: 55 y.o. year-old female with left ankle pain vs. peroneal tendinitis vs. posterior tibialis tendinitis Plan: We discussed multiple causes for her left ankle discomfort. Reassurance was provided the patient that her x-rays were normal, and there is no bony injury. Her clinical exam shows tenderness palpation over the soft tissue in around the distribution of her peroneal tendons underneath the lateral malleolus extending up the lower leg and tenderness palpation over the soft tissue underneath the medial malleolus along with up the leg. She also demonstrates increase in discomfort during active and resisted motion of these muscle groups. We discussed management of these conditions which include oral analgesics such as acetaminophen or NSAIDs. He is unable to tolerate NSAIDs due to allergy. We discussed changing footwear, that she will most likely more comfortable and a stiff soled rocker-bottom shoe that goes above the ankle such as a hiking boot. Next, we discussed physical therapy and activity modification. We discussed physical therapy will help strengthen these muscles over time to reduce thebouts of flares of tendinitis she will have. If she starts attempting physical therapy her pain getsworse, she needs to back off and let the tendons rest. If rest or physical therapy does not relieve her pain, we can consider MRI in the future to evaluate the soft tissues or consider a tall cam walker boot trial. Follow up: When necessary This plan was discussed with the patient and they are in agreement. All of the patient's questions were answered. The above dictation was made with voice recogonition software documented in this encounter Plan of Treatment Scheduled Referrals Name Type Priority Associated Diagnoses Order S chedule Referral to Outpatient Referral Routine Peroneal tendonitis, Ordered: Physical Therapy left 05/30/2015 Posterior tibial tendinitis of left leg documented as of this encounter Visit Diagnoses Diagnosis Posterior tibial tendinitis of left leg - Primary Tibialis tendinitis Peroneal tendonitis, left documented in this encounter Care Teams National Coverage Specialist Relationship Specialty Start Date End Date Michela Stevenson APRN PCP - General 04/29/10 06/07/16 documented as of this encounter
--- OUTSIDE RECORDS SUMMARY | 2022-05-06 08:18 | XMS_ITS | Encounter Summary ---
:1960 Author Organization [facility] [place] [address] Care Team Providers Name Role Phone Michela Stevenson CAROLINA Primary Care Provider Reason for Visit Reason Comments Breast Cancer Encounter Details Date Type Department Care Team Description 12/31/2014 Follow-Up Hematology/Oncology at [facility] Lugo MD Malignant neoplasm of [address] [place] breast [address] [place] [address] [id number] [phone] Social History Tobacco Use Types Packs/Day Years [...] Sign Reading Time Taken Comments Blood Pressure 125/82 12/31/2014 2:15 PM EDT Pulse 100 12/31/2014 2:15 PM EDT Temperature 37 ??C (98.6 ??F) 12/31/2014 2:15 PM EDT Respiratory Rate 18 12/31/2014 2:15 PM EDT Oxygen Saturation 100% 12/31/2014 2:15 PM EDT Inhaled Oxygen Concentration - - Weight 90.3 kg (199 lb) 12/31/2014 2:15 PM EDT Height 160 cm (5' 2.99) 12/31/2014 2:15 PM EDT Body Mass Index 35.26 12/31/2014 2:15 PM EDT documented in this encounter Progress Notes Schuyler Lugo MD - 12/31/2014 2:51 PM EDT DIAGNOSIS: 1. 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 ER positive, HER-2/viktoria negative, with one lymph node microscopically positive, other two negative. She had arthralgias and myalgias on aromatase inhibitors and is currently on tamoxifen for a planned 10years . 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 Subjective: Shraddha comes in today for followup. It is her five-year anniversary since the diagnosis of her breast cancer. Since I last saw her, she has had surgery on her left biceps tendon and notes that the results are less good than she would like. She notes she would never do that again. Functionally, though, she seems to be using her left arm just fine. She is not having any particular headaches or other symptoms right now and is taking her tamoxifen as prescribed. She would like to take the medication for 10 full years. We talked about the fact that at five years she has very low risk, and she does note that she knows several people who are friends who have had recurrences late. She does understand, however, that that is a distinctly unusual thing. Otherwise, though, as noted, review of systems is negative. Current Outpatient Prescriptions on File Prior to Visit Medication Sig Dispense Refill ??? tamoxifen (NOLVADEX) 20 mg Tablet Take 1 tablet by mouth daily. 90 tablet 3 ??? b complex vitamins Capsule Take 1 capsule by mouth daily. 90 capsule 3 ??? dexlansoprazole (DEXILANT) 60 mg Cap, Delayed Rel., Multiphasic Take 60 mg by mouth daily. ??? nicotine (NICODERM CQ) 21 mg/24 hr Patch 24 hr 0 ??? CYCLOBENZAPRINE HCL (FLEXERIL ORAL) Take by mouth. ??? [DISCONTINUED] LORATADINE ORAL Take by mouth. No current facility-administered medications on file prior [...] Chronic Headaches. Hematological: Negative for adenopathy. BP 125/82 mmHg Pulse 100 Temp(Src) 37 ??C (98.6 ??F) (Oral) Resp 18 Ht 160 cm (5' 2.99) Wt 90.266 kg (199 lb) BMI 35.26 kg/m2 SpO2 100% Head: Normocephalic Eyes: PERRL, conjunctiva/corneas clear benign, [...] supraclavicular, and axillary nodes normal Neurologic: Normal Review of her laboratory today shows a white count of 7.98, hemoglobin 13.5, hematocrit 39.5, and platelet count of 218. CMP shows normal electrolytes, a calcium of 8.4, albumin of 3.5. She did get a vitamin D level, which is on the low side at 20.7. TSH was 1.2. ALP is 61. Assessment/Plan: Shraddha is doing well with no evidence of recurrent breast cancer, now five years after initial diagnosis. Plans are for her to take tamoxifen 20 mg daily for a full 10 years. At this point, we will change her followup to yearly and arrange for lab on return. Her mammograms will be due in mid June. Will order those at [facility]. She knows to call if there are any issues or problems in the interim. documented in this encounter Plan of Treatment Not on filedocumented as of this encounter Visit Diagnoses Diagnosis Malignant neoplasm of right breast Malignant neoplasm of breast (female), u nspecified site documented in this encounter Care Teams Paper Maker Relationship Specialty Start Date End Date Michela Stevenson APRN PCP - General 04/29/10 06/07/16 documented as of this encounter
--- OUTSIDE RECORDS SUMMARY | 2022-05-06 08:18 | XMS_ITS | Encounter Summary ---
:1960 Author Organization [facility] [address] Care Team Providers Name Role Phone Michela Stevenson APRN Primary Care Provider Encounter Details Date Type Department Care Team Description 07/18/2015 Telephone General Surgery at [facility] [place] [address] Social History Tobacco Use Types Packs/Day Years Used Date Smoking Tobacco: Every Day Cigarettes 0.5 37 e-Cigarettes Smokeless Tobacco: Never Alcohol Use Standard Drinks/Week Comments Yes 0 (1 standard drink = 0.6 oz pure alcoho l) very rare Sex Assigned at Date Recorded Not on file documented as of this encounter Miscellaneous Notes Telephone Encounter - Alta Morrison - 07/18/2015 12:17 PM EST Patient was due to see Ailin Benedict APRN for f/u breast cancer. She has declined the appointment since she is seeing Sania James APRN and Dr Lugo as well as having local mammograms. documented in this encounter Plan of Treatment Not on filedocumented as of this encounter Visit Diagnoses Not on filedocumented in this encounter Care Teams Ui Application Developer Relationship Specialty Start Date End Date Michela Stevenson APRN PCP - General 04/29/10 06/07/16 documented as of this encounter
--- OUTSIDE RECORDS SUMMARY | 2022-05-06 08:18 | XMS_ITS | Encounter Summary ---
:1960 Author Organization [facility] [address] Care Team Providers Name Role Phone Michela Stevenson CAR[place] Primary Care Provider Reason for Visit Reason Comments Radiation Follow-up AVM Encounter Details Date Type Department Care Team Description 09/27/2014 Follow-Up Radiation Oncology at Domonique James, Rad iation therapy induced brain necrosis; [facility] NURSE TRANSPLANT Arteriovenous malformation of brain [address] [place], [place] RADIATION ONCOL OGY [address] [place], [place] [phone] (Wo rk) Social History Tobacco Use Types [...] Sign Reading Time Taken Comments Blood Pressure 131/87 09/27/2014 12:53 PM EDT Pulse 92 09/27/2014 12:53 PM EDT Temperature 36.9 ??C (98.4 ??F) 09/27/2014 12:53 PM EDT Respiratory Rate 18 09/27/2014 12:53 PM EDT Oxygen Saturation 99% 09/27/2014 12:53 PM EDT Inhaled Oxygen Concentration - - Weight 92.1 kg (203 lb) 09/27/2014 12:53 PM EDT Height - - Body Mass Index 35.96 09/19/2014 11:33 AM EDT documented in this encounter Patient Instructions Patient InstructionsDomonique James APRN - 09/27/2014 1:05 PM EDT Images from the original note were not included. documented in this encounter Progress Notes Domonique James APRN - 09/29/2014 5:04 PM EDT Brief visit with patient who wanted to see brain MRI images from recent brain MRI. Images reviewed. We dicussed that the next MRI will be in one year. Patient is doing well at this time. 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
--- OUTSIDE RECORDS SUMMARY | 2022-05-06 08:18 | XMS_ITS | Encounter Summary ---
:1960 Author Organization [facility] [place] [address] Care Team Providers Name Role Phone Michela Stevenson [place] Primary Care Provider Reason for Visit Reason Comments Radiation Follow-up breast cancer Encounter Details Date Type Department Care Team Description 07/11/2015 Office Visit Radiation Oncology at [facility], Rafael Augustine ignant neoplasm of [facility] ENVIRONMENTAL ENGINEERING ASSISTANT nipple of right [address] breast in female [place], [place] RADIATION ONCOL OGY [address] [place], [place] [phone] (Wo rk) Social History Tobacco Use Types [...] Sign Reading Time Taken Comments Blood Pressure 134/62 07/11/2015 10:00 AM EST Pulse 82 07/11/2015 10:00 AM EST Temperature 36.7 ??C (98.1 ??F) 07/11/2015 10:00 AM EST Respiratory Rate 16 07/11/2015 10:00 AM EST Oxygen Saturation 100% 07/11/2015 10:00 AM EST Inhaled Oxygen Concentration - - Weight 92.8 kg (204 lb 8 oz) 07/11/2015 10:00 AM EST Height - - Body Mass Index 36.23 05/30/2015 12:32 PM EST documented in this encounter Progress Notes Domonique James, ENVIRONMENTAL ENGINEERING ASSISTANT - 07/11/2015 12:44 PM EST Patient ID: Shraddha Chavez is a 55 y.o. female who has been seen by provider due to history of breast cancer. She asked to be seen today due to concerns about her recent breast mammogram. HPI Right breast cancer: stage I, pT1C [...] left leg M76.822 ??? Peroneal tendonitis M76.70 Past Surgical History Procedure Laterality Date ??? [...] Take 60 mg by mouth daily. ??? CYCLOBENZAPRINE HCL (FLEXERIL ORAL) Take 10 mg by mouth as needed. No current facility-administered medications on file prior to visit. Advance Directive: on file Interim History: patient asked to be seen in clinic to review her recent breast mammogram. She indicates that she saw images of her breast at the time her mammogram was done and saw some spots that she is concerned may be recurrence. She has otherwise been well. She has resumed smoking one pack a day. She will be having a follow up MRI of her brain in September to follow up on her previously treated AVM. ROS otherwise non-contributory. Review of Systems Constitutional: Negative. Negative for fever, chills, diaphoresis, activity change, appetite change,fatigue and unexpected weight change. Eyes: Negative. Respiratory: Negative. Negative for cough, chest tightness and shortness of breath. Cardiovascular: Negative. Negative for chest pain and leg swelling. Patient is now off inderal Gastrointestinal: Negative. Genitourinary: Negative. Musculoskeletal: Positive for arthralgias. Left shoulder --site of rotator cuff repair and feet Skin: Negative. Neurological: Positive for headaches. Negative for dizziness, speech difficulty and weakness. Intermittent headaches --manageable. Hematological: Negative. Psychiatric/Behavioral: The patient is nervous/anxious. Filed Vitals: 07/11/15 1000 BP: 134/62 Pulse: 82 Temp: 36.7 ??C (98.1 ??F) Resp: 16 Weight: 92.761 kg (204 lb 8 oz) SpO2: 100% Objective: Physical Exam Constitutional: She is oriented to person, place, and time. She appears well- developed and well-nourished. No distress. HENT: Head: Normocephalic and atraumatic. Eyes: Conjunctivae and EOM are normal. Pupils [...] tenderness. Abdominal: Soft. Bowel sounds are normal. Musculoskeletal: She exhibits no edema or tenderness. Lymphadenopathy: Head (right side): No submental, no [...] Judgment and thought content normal. Vitals reviewed. 06/17/2015- Mammogram done at [facility]: Scarring in the area of previous breast cancer in the posterior central right breast. The breasts are composed of mainly fatty density tissue. No masses or suspiciouscalcifications are seen. Category 2, negative mammogram with benign findings, Assessment and Plan: Shraddha Chavez is a pleasant 55 year old woman with history of right breast cancer--stage I, pT1C pN0M0 IDC w/lobular extension, high gr, s/p R partial mastectomy, sentinel lymphadenectomy & B reduction mammoplasty, ERPR+; s/p adjuvant AC x 4 and radiation therapy 61 Gy which was completed on 03/10/2010. Patient continues with tamoxifen which she has been tolerating well with the plan to continue this therapy for another five years. We opened patient's mammogram images and reviewed these together. Patient was reassured. Clinical exam did not demonstrate any concerning findings. Patient is to have a repeat mammogram in one year. She will be back in clinic in September after her restaging brain MRI for followup post XRT to treat an AVM Patient is to call with any questions or concerns. documented in this encounter Plan of Treatment Not on filedocumented as of this encounter Procedures Procedure Name Priority Date/Time Associated Diagnosis Comme nts MRI/MRA SCAN 10/28/2015 12:00 AM EDT documented in this encounter Results SCAN DOC: MRI/MRA (10/28/2015 12:00 AM EDT) Anatomical Region Laterality Modality Other Narrative This result has an attachment that is no t available. Scanning Provider MEDIA MGR SCAN EXT ORDR/RSLT documented in this encounter Visit Diagnoses Diagnosis Malignant neoplasm of nipple of right br east in female documented in this encounter Care Teams Rn Women Services Relationship Specialty Start Date End Date Michela Stevenson APRN PCP - General 04/29/10 06/07/16 documented as of this encounter
--- OUTSIDE RECORDS SUMMARY | 2022-05-06 08:18 | XMS_ITS | Encounter Summary ---
:1960 Author Organization [facility] [place] [address] Care Team Providers Name Role Phone Michela Stevenson [place] Primary Care Provider Reason for Visit Reason Comments [facility] Left TKA 10/31/08, Right TKA Encounter Details Date Type Department Care Team Description 09/19/2014 Office Visit Orthopaedics at [facility] Arnaldo Monte Hx of total knee [facility] J, JAJA replacement, [facility] [place] [address] ORTHOPAEDIC SURGERY [phone] [place], [place] [address] (Wo rk) Social History Tobacco [...] Sign Reading Time Taken Comments Blood Pressure 127/79 09/19/2014 11:33 AM EDT Pulse 91 09/19/2014 11:33 AM EDT Temperature - - Respiratory Rate - - Oxygen Saturation - - Inhaled Oxygen Concentration - - Weight 92.5 kg (203 lb 14.4 oz) 09/19/2014 11:33 AM malaika bal EDT Height 160 cm (5' 3) 09/19/2014 11:33 AM verbal EDT Body Mass Index 36.12 09/19/2014 11:33 AM EDT documented in this encounter Progress Notes Arnaldo Monte PA - 09/19/2014 11:28 AM EDT SURGERY DATE: 10/15/2006 Surgical Staff: Levy Hanks M.D. Procedure Performed: Right total knee arthroplasty. Operative Components Used from the [employer] Sigma Knee System: 1. A size 3 porous cruciate retaining femoral component. 2. Size 3 DePuy MBT tibial keel tray. 3. Size 3 x 12.5-mm rotating platform curved tibial insert. 4. A 35-mm, three-peg, oval patella. SURGERY DATE: 10/31/2008 SURGICAL STAFF LEVY HANKS MD PROCEDURE: Left total knee arthroplasty. IMPLANTS: All implants were [employer]uy PFC rotating platform cruciate retaining implants. 1. Size 2.5 standard porous femur. 2. Size 2.5 RP porous tibia. 3 A 10 mm poly. 4. A 32 mm cemented round patella. 5. One batch of quick dry cement. HPI: 54 yo female returns for routine f/u of her knee replacements. She has continued to do well. There is no knee pain. She has no swelling. ROM and stability are not limiting. She has no complaints in regard to the joints. Her health has been stable otherwise. No fevers or chills. No chest pain or SOB. Questionnaire Responses: myD-H Hip & Knee 09/19/2014 [...] PROMIS MENTAL HEALTH SCORE (range 21-68) 53.3 X-rays: Noncemented implants; no sign of loosening or subsidence. No evidence of complication. No change from previous films. Assessment: S/P Bilateral TKA Plan: She seems to be doing well in regard to the knees. We reviewed joint precautions and infectionmanagement. Antibiotic prophylaxis was recommended. We discussed appropriate activities to prevent premature implant failure. I encouraged continued joint specific rehab exercises. We'll plan to f/u in2 year(s) or sooner as needed. documented in this encounter Plan of Treatment Not on filedocumented as of this encounter Visit Diagnoses Diagnosis Hx of total knee replacement, bilateral documented in this encounter Care Teams Safety Technician Relationship Specialty Start Date End Date Michela Stevenson APRN PCP - General 04/29/10 06/07/16 documented as of this encounter
--- OUTSIDE RECORDS SUMMARY | 2022-05-06 08:18 | XMS_ITS | Encounter Summary ---
:1960 Author Organization [facility] [place] [address] Care Team Providers Name Role Phone Michela Stevenson [place] Primary Care Provider Reason for Visit Reason Comments Radiation Follow-up AVM Encounter Details Date Type Department Care Team Description 11/14/2015 Office Visit Radiation Oncology Domonique James, Arteri ovenous at [facility] [place] malformation (AVM) [address] [place], [place] RADIATION ONCOL OGY [address] [place], [place] [phone] [address] Social History Tobacco Use Types Packs/Day Years Used Date Smoking Tobacco: Every Day Cigarettes 0.5 37 e-Cigarettes Smokeless Tobacco: Never Alcohol Use Standard Drinks/Week Comments Yes 0 (1 standard drink = 0.6 oz pure alcoho l) very rare Sex Assigned at Date Recorded Not on file documented as of this encounter Last Filed Vital Signs Vital Sign Reading Time Taken Comments Blood Pressure 115/77 11/14/2015 2:34 PM EDT Pulse 84 11/14/2015 2:34 PM EDT Temperature 37 ??C (98.6 ??F) 11/14/2015 2:34 PM EDT Respiratory Rate 20 11/14/2015 2:34 PM EDT Oxygen Saturation 99% 11/14/2015 2:34 PM EDT Inhaled Oxygen Concentration - - Weight 91.4 kg (201 lb 8 oz) 11/14/2015 2:34 PM EDT Height - - Body Mass Index 35.69 05/30/2015 12:32 PM EST documented in this encounter Progress Notes Domonique James, HOSPICE NURSE - 11/14/2015 2:56 PM EDT Patient ID: Shraddha Chavez is a 55 y.o. 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 She had a surveillance brain MRI and is in clinic to review this as well. Shraddha also has a history of right breast cancer. HPI Right breast cancer: stage I, pT1C [...] visit. Advance Directive: on file Interim History: Shraddha has moved to [place] recently and is happy with the move. She recently had some rectal bleeding and she has been scheduled to to have a colonoscopy on 11/29/2015 at [facility]. She has never had a colonoscopy. She had a repeat MRI which we reviewed and shows no change. Michela reports that her previous Sx of persistent nausea is back. She had a negative upper GI. She has no vomiting. She reports no dizziness, no falls. She has intermittent headaches. She reports some increased general blurring of vision but has not had an eye exam in a long time. Review of Systems Constitutional: Negative. Negative for activity change, appetite change, chills, diaphoresis, fatigue, fever and unexpected weight change. Eyes: Negative. Respiratory: Negative. Negative for cough, chest tightness and shortness of breath. Patient continues to smoke Cardiovascular: Negative. Negative for chest pain, palpitations and leg swelling. Gastrointestinal: Positive for nausea. Negative for abdominal pain and vomiting. See interim history Genitourinary: Negative. Musculoskeletal: Positive for arthralgias. Skin: Negative. Neurological: Positive for headaches. Negative for dizziness, speech difficulty and weakness. Intermittent headaches --manageable. Hematological: Negative. Psychiatric/Behavioral: Positive for sleep disturbance. Unchanged sleep disturbance Vitals: 11/14/15 1434 BP: 115/77 Patient Position: Sitting Pulse: 84 Resp: 20 Temp: 37 ??C (98.6 ??F) TempSrc: Oral SpO2: 99% Weight: 91.4 kg (201 lb 8 oz) Objective: Physical Exam Constitutional: She is oriented [...] are normal. She exhibits no distension. Musculoskeletal: She exhibits no edema, tenderness or deformity. [...] place, and time. She has normal strength. No cranial nerve deficit or sensory deficit. She exhibits normal muscle tone. She displays a negative Romberg sign. Coordination normal. Tandem walking normal Skin: Skin is warm and dry. No rash noted. She is not diaphoretic. No erythema. No pallor. Psychiatric: She has a normal mood and affect. Her behavior is normal. Judgment and thought content normal. Vitals reviewed. 06/17/2015- Mammogram done at [facility]: Scarring in the area of previous breast cancer in the posterior central right breast. The breasts are composed of mainly fatty density tissue. No masses or suspiciouscalcifications are seen. Category 2, negative mammogram with benign findings, 10/28/2015--brain MRI--stable post treatment changes. No change Assessment and Plan: Shraddha Chavez is a pleasant 55 year old woman with history AVM treated with radiation therapy SRS 18Gy on 08/12/2010. Her recent MRI is stable. Post treatment she developed radiation necrosis. She was treated with hyperbaric oxygen therapy withdecreased symptoms of persistent headache. She has had intermittent nausea and this appears to be recurring. She has had GI workup. She recently had lower GI bleeding and she will have a colonoscopy. Her exam today was negative for any concerning findings. We will resume ondansetron for symptom management. We will repeat brain MRI in one year for Surveillance. 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
--- OUTSIDE RECORDS SUMMARY | 2022-05-06 08:18 | XMS_ITS | Encounter Summary ---
:1960 Author Organization [facility] [place] [address] Care Team Providers Name Role Phone Michela Stevenson [place] Primary Care Provider Encounter Details Date Type Department Care Team Description 09/19/2014 Hospital Encounter XRay at [facility] Hx of total knee [address] [place] [address] Dr grewal, [place] [address] Social History Tobacco Use Types Packs/Day [...] 0 01/27/201208/19 (COMPAZINE) 10 mg Tablet mouth. nicotine (NICODERM CQ) 21 0 06/29/2014 05/30/2015 mg/24 hr Patch 24 hr CYCLOBENZAPRINE HCL Take 10 mg by 0 (FLEXERIL ORAL) mouth as needed. LORATADINE ORAL Take by mouth. 0 12/31 tamoxifen (NOLVADEX) 20 mg Take 1 tablet by 90 tablet 3 07/20/2016 TabletIndications: mouth daily. Malignant neoplasm of right female breast b complex vitamins Take 1 capsule by 90 capsule 3 04/06/2014 04/04/2015 CapsuleIndications: Breast mouth daily. cancer, right documented as of this encounter Plan of Treatment Not on filedocumented as of this encounter Procedures Procedure Name Priority Date/Time Associated Diagnosis Comme nts XR KNEE AP AND LAT Routine 09/19/2014 11:00 AM Re sults for this BILAT EDT procedure are i n the results section. documented in this encounter Results XR knee bilateral 1 or 2 view (09/19/2014 11:00 AM EDT) Anatomical Region Laterality Modality Knee Bilateral Radiographic Imaging Specimen (Source) Anatomical Collection Method Collection Time Re ceived Time Location / / Volume Laterality 09/19/2014 11:00 AM EDT Impressions 09/19/2014 3:07 PM EDT IMPRESSION: Uncomplicated bilateral total knee arth roplasty. Narrative 09/19/2014 3:07 PM EDT EXAMINATION: KNEE BILATERAL 1 OR 2 VIEWS/BILAT CLINICAL HISTORY: f/u Bilateral TKA- ??t n TECHNIQUE: ? COMPARISON: Multiple examinations since December 2008 FINDINGS: The bilateral total knee arthroplasties are unchanged in appearance and alignment and no radiolucencies or perip rosthetic fracture. There is newly developed heterotopic bone formation or bony small overgrowth at the anterior aspect of the tibial tray seen only on t he left lateral view. No knee effusion. Procedure Note Thuy Landrum MD - 09/19/2014Formatt ing of this note might be different from the original. EXAMINATION: KNEE BILATERAL 1 OR 2 VIEWS /BILAT CLINICAL HISTORY: f/u Bilateral TKA- tn* TECHNIQUE: COMPARISON: Multiple examinations since December 2008 FINDINGS: The bilateral total knee arthroplasties are unchanged in appearance and alignment and no radiolucencies or perip rosthetic fracture. There is newly developed heterotopic bone formation or bony small overgrowth at the anterior aspect of the tibial tray seen only on t he left lateral view. No knee effusion. IMPRESSION IMPRESSION: Uncomplicated bilateral total knee arth roplasty. Levy Altamirano MD IMG DX ORDERABLES documented in this encounter Visit Diagnoses Diagnosis Hx of total knee replacement, bilateral documented in this encounter Care Teams Voice Professor Relationship Specialty Start Date End Date Michela Stevenson APRN PCP - General 04/29/10 06/07/16 documented as of this encounter
--- OUTSIDE RECORDS SUMMARY | 2022-05-06 08:18 | XMS_ITS | Encounter Summary ---
:1960 Author Organization [facility] [address] Care Team Providers Name Role Phone Michela Stevenson APRN Primary Care Provider Encounter Details Date Type Department Care Team Description 06/27/2014 Orders Only Radiation Oncology at Emma Bro RN [address] [phone] Social History Tobacco Use Types Packs/Day Years Used Date Smoking Tobacco: Every Day Cigarettes 37 Smokeless Tobacco: Never Comments: Smoking about 5 cigarettes a d ay Alcohol Use Standard Drinks/Week Comments Yes 0 (1 standard drink = 0.6 oz pure alcoho l) very rare Sex Assigned at Date Recorded Not on file documented as of this encounter Progress Notes Emma Bro RN - 06/27/2014 2:45 PM EST Encounter opened in error documented in this encounter Plan of Treatment Not on filedocumented as of this encounter Visit Diagnoses Not on filedocumented in this encounter Care Teams Supervisor In Circuit Testing Relationship Specialty Start Date End Date Michela Stevenson APRN PCP - General 04/29/10 06/07/16 documented as of this encounter
--- OUTSIDE RECORDS SUMMARY | 2022-05-06 08:19 | XMS_ITS | Encounter Summary ---
:1960 Author Organization [facility] [place] [address] Care Team Providers Name Role Phone Michela Stevenson [place] Primary Care Provider Encounter Details Date Type Department Care Team Description 11/01/2013 Telephone Radiation Oncology at [facility], Juana Mas RN [address] [phone] Social History Tobacco Use Types Packs/Day Years Used Date Smoking Tobacco: Light Cigarettes 0.5 37 Last attempted to quit: Smoker 07/18/2013 Alcohol Use Standard Drinks/Week Comments Yes 0 (1 standard drink = 0.6 oz pure alcoho l) very rare Sex Assigned at Date Recorded Not on file documented as of this encounter Miscellaneous Notes Telephone Encounter - Juana Wilson RN - 11/01/2013 2:58 PM EDT PRIOR AUTHORIZATION FOR Ondansetron Date of call: 11/01/13 Time of call: 2:44- 5:[address] [facility] at for pre-authorization of ondanstron. Spoke w/Brandy. Obtained PA for next 12 months. Authorization # is [id number]. [facility] informed via retuning their Prior Authorization Request form: faxed to them at [phone] documented in this encounter Plan of Treatment Not on filedocumented as of this encounter Visit Diagnoses Not on filedocumented in this encounter Care Teams Health Informatics Advisor Relationship Specialty Start Date End Date Michela Stevenson APRN PCP - General 04/29/10 06/07/16 documented as of this encounter
--- OUTSIDE RECORDS SUMMARY | 2022-05-06 08:19 | XMS_ITS | Encounter Summary ---
:1960 Author Organization [facility] Address [facility] [place] [address] Care Team Providers Name Role Phone Michela Stevenson [place] Primary Care Provider Reason for Visit Reason Comments Follow-up Encounter Details Date Type Department Care Team Description 01/18/2014 Follow-Up Cardiology at [facility] Quinton Aragon, Tachycardia, [facility] unspecified ([address] [facility] Dx) [place] [phone] CARDIOLOGY DEPT. [place], [place] [address] (Wo rk) Social History Tobacco Use Types Packs/Day Years Used Date Smoking Tobacco: Every Day Cigarettes 37 Smokeless Tobacco: Never Comments: Smoking about 2 cigarettes a d ay Alcohol Use Standard Drinks/Week Comments Yes 0 (1 standard drink = 0.6 oz pure alcoho l) very rare Sex Assigned at Date Recorded Not on file documented as of this encounter Last Filed Vital Signs Vital Sign Reading Time Taken Comments Blood Pressure 128/90 01/18/2014 11:41 AM EDT Pulse 80 01/18/2014 11:41 AM EDT Temperature - - Respiratory Rate - - Oxygen Saturation 100% 01/18/2014 11:41 AM EDT Inhaled Oxygen Concentration - - Weight 95.3 kg (210 lb) 01/18/2014 11:41 AM EDT Height 160 cm (5' 3) 01/18/2014 11:41 AM EDT Body Mass Index 37.2 01/18/2014 11:41 AM EDT documented in this encounter Progress Notes Quinton Aragon MD - 01/18/2014 12:16 PM EDT Subjective Shraddha Chavez is a pleasant, 53-year-old woman referred back to the Cardiology Clinic for assessmentof tachycardia at the request of Michela Stevenson APRN. I had seen this lady in October for what appearedto be inappropriate sinus tachycardia and she as placed on propranolol 10mg bid. About six week ago she had an episode of presyncope in association with hypotension identified by the EMS squad on her transport to [facility] for assessment. No acute process was noted as a cause for the labile BP and she was discharged to home. She has not had recurrent symptoms of this degree but she does have a pinching sensation over the left infra- axillary area that annoys her. This is not associated with any other symptoms and has not been provoked by effort. She denies any other symptoms such as fever, chills, weight loss or gain. She reduced the propranolol on her own to 10mg daily rather than bid. The latter change has not had much positive or negative effect. There is no history of acquired or congenital heart disease. There is no background of hypertension,coronary artery disease, cardiomyopathy, valvular heart disease, diet drug use, hyperthyroidism, chronic anemia. Past Medical History Reveals multiple drug sensitivities Allergies Allergen Reactions ??? Latex Itching and [...] Promethazine Hcl Nausea And Vomiting ??? Toradol (Ketorolac Tromethamine) Hives ??? Aspirin Rash ??? Cortisone Hot all over / Fever ??? Magnesium Rash ??? Sulfa (Sulfonamide Antibiotics) Hives ??? Tramadol Nausea And Vomiting ??? Mobic (Meloxicam) rash Present medications are as follows: Current Outpatient Rx Name Route Sig Dispense Refill ??? PROPRANOLOL 10 MG TABLET Oral Take 10 mg by mouth 2 times daily. ??? ONDANSETRON HCL 8 MG TABLET Oral Take 1 tablet by mouth every 8 hours as needed for Nausea. 20 tablet 3 ??? TAMOXIFEN 20 MG TABLET take 1 tablet by mouth once daily 30 tablet 12 ??? B COMPLEX VITAMINS CAPSULE Oral Take 1 capsule by mouth daily. 90 capsule 3 ??? DEXLANSOPRAZOLE 60 MG CAPSULE,BIPHASE DELAYED RELEASE Oral Take 60 mg by mouth daily. ??? ALBUTEROL SULFATE HFA 90 MCG/ACTUATION AEROSOL INHALER Inhalation Inhale 2 puffs into the lungs every 4 hours as needed. Use with spacer Medical illnesses include degenerative joint disease, history of right breast cancer with subsequentchemotherapy, arteriovenous malformation with cephalagia, tobacco abuse, GERD. Surgical background includes right shoulder arthroscopy, bilateral total knee replacements, and partial right mastectomy with sentinel node biopsy/resection. Her breast therapy a number of years ago did include chemotherapy. Objective General: Physical exam reveals a moderately overweight, alert, cooperative, 53-year-old white femalewith the following vital signs: blood pressure was 130/90, pulse is regular at a rate of 75 beats per minute, respiratory rate is 12. O2 sat 100% on room air. HEENT: Eyes reveal no scleral icterus or conjunctival pallor. Ears are without discharge. Neck is supple without lymphadenopathy or thyromegaly. There is no jugular venous distention or carotid bruits. Lungs: Clear. Cardiac: Reveals a regular rhythm at a rate of 75-78 beats per minute. The 1st and 2nd heart sounds are physiologic and there was no audible murmur, gallop, rub, click, or ectopy. Abdomen: Obese in contour with active bowel sounds and no organomegaly or areas of tenderness are noted. Extremities: Revealed satisfactory pulses and there was no cyanosis, clubbing, or edema. Neurological: Grossly non-focal. Laboratory Data: BMP in mid December was unremarkable. Echo October 2013 Echo: 1. There is normal global left ventricular systolic function. The quantitative left ventricular ejection fraction by biplane Osborn's method is 67%. There are no left ventricular segmental wall motion abnormalities. 2. Right ventricular chamber size, wall thickness, and systolic function are within normal limits. 3. There is no hemodynamically significant valve disease. Lab Results Component Value Date TSH 1.63 10/09/2013 Assessment 1. Tachycardia, consistent with inappropriate sinus tachycardia. 2. No overt evidence of congenital heart disease or acquired heart disease. 3. Paroxysmal hypotension, ? Mechanism(s). Will screen for pheo. Plan 1. I talked to the patient about the uncertainty as to what happened to her earlier this summer. I do not believe this was an ACS or other primary arrhythmia. I did advise that we obtain a urinary collection for VMA and metanephrines. I will report these results to the patient by mail when available. documented in this encounter Plan of Treatment Not on filedocumented as of this encounter Results Catecholamines Frac Free urine, 24 hr (02/07/2014 6:00 AM EDT) Component Value Ref Test Analysis Performed At [facility] Range Method Time Signature U24 Catechol, CERNER Frac Test ?Result ??Flag ??Unit ?RefValue MILLENNIUM Catecholamine Fract, Free, U ??Collection Duration ? 24 ?h ??Urine Volume ?1800 ?mL ??Norepinephrine ?34 ?mcg/2 4 h ??15-80 ??Epinephrine ? 3.2 ? mcg/2 4 h ??<21 ??Dopamine ?88 ? mcg/24 h ??65-400 Test Performed by: [address] [address] Truck [employer] Supervisor: Zackary Johnson III, M.D. Specimen Anatomical Collection Method Collection Time Receive d Time (Source) Location / / Volume Laterality Urine specimen 02/07/2014 6:00 AM 014 1:10 (specimen) EDT PM EDT Resulting Agency Comment Spec In Lab Quinton Aragon MD URINE ORDERABLES Performing Organization Address City/State/[place] [address] TEOFILO DAVIDSONENNIUM Metanephrines, Fractionated, urine, 24 hour (02/07/2014 6:00 AM EDT) [facility] Method Time Signature U24 CERNER Metanephrines Test ?Result ??Flag ??Unit ?RefValue MILLENNIUM ,Frac Metanephrines, Fractionated, 24h, U ??Metanephrine, U ? 157 ? mcg/24 h -- REFERENCE VALUE -- 30-180 (Normotensive) <400 (Hypertensive) ??Normetanephrine, U ?542 ? mcg/24 h -- REFERENCE VALUE -- 128-484 (Normotensive) <900 (Hypertensive) ??Total Metanephrines, U ?699 ? mcg/24 h -- REFERENCE VALUE -- 164-588 (Normotensive) <1300 (Hypertensive) ??Collection Duration ? 24 ?h ??Urine Volume ?1800 ?mL Test Performed by: [facility] [address] [address] [employer] Supervisor: Zackary Johnson III, M.D. Specimen Anatomical Collection Method Collection Time Receive d Time (Source) Location / / Volume Laterality Urine specimen 02/07/2014 6:00 AM 014 1:10 (specimen) EDT PM EDT Resulting Agency Comment Spec In Lab Quinton Aragon MD URINE ORDERABLES Performing Organization Address City/State/[place] [address] [facility] documented in this encounter Visit Diagnoses Diagnosis Tachycardia, unspecified - Primary documented in this encounter Care Teams Defense Travel Administrator Relationship Specialty Start Date End Date Michela Stevenson APRN PCP - General 04/29/10 06/07/16 documented as of this encounter
--- OUTSIDE RECORDS SUMMARY | 2022-05-06 08:19 | XMS_ITS | Encounter Summary ---
:1960 Author Organization [facility] [place] [address] Care Team Providers Name Role Phone Michela Stevenson CAR[place] Primary Care Provider Encounter Details Date Type Department Care Team Description 06/26/2014 Telephone Hematology Oncology at [place] [facility] RN [address] [phone] Social History Tobacco Use [...] Telephone Encounter - Emma Bro RN - 06/26/2014 11:49 AM EST Telephone call from Shraddha stating that she is having day surgery to repair her left rotator cuff on07/16/[address] Pablo Dhillon from the [facility]. The plan is for her to go home same day. She saysthat Dr. Dhillon is requesting from Dr. Lugo a copy of her most recent blood work and a letter from him stating that she is cleared from an oncology standpoint to have this surgery. She is going to [facility] have the blood work ordered by Dr. Lugo for her upcoming appointment with him next 07/02/14. She is concerned that she should not have IV's or BP's on her right side due to her history of breast cancer/treatment for this and has been told by the orthopedic pre op teaching that she will notbe able to have these in her left arm on day of surgery either. She will ask that they do her BP's on her leg but would like Dr. Lugo to include in his note that she can not have IV's on her right side either. This information needs to be faxed to Dr. Dhillon at the [facility] fax: . Any questions can be directed to Consuelo Archibald at . Shraddha states that she gives verbal permission to provide requested information to the [facility] and contact them as needed. She says that she is also having her PCP, Michela Stevenson send clearance information to Dr. Dhillon as well. I toldShraddha that we would look out for her lab results and can send this along with a clearance note after she sees Dr. Lugo on 07/02/14. I will update Dr. Lugo regarding this request by communicating with his nurse Precious Ibanez RN. documented in this encounter Plan of Treatment Not on filedocumented as of this encounter Visit Diagnoses Not on filedocumented in this encounter Care Teams Baseball Glove Stuffer Relationship Specialty Start Date End Date Michela Stevenson APRN PCP - General 04/29/10 06/07/16 documented as of this encounter
--- OUTSIDE RECORDS SUMMARY | 2022-05-06 08:19 | XMS_ITS | Encounter Summary ---
:1960 Author Organization [facility] Address [address] [place] [place] [address] Care Team Providers Name Role Phone Luz Stevensonmaurice Stanley APRN Primary Care Provider Encounter Details Date Type Department Care Team Description 03/01/2014 Follow-Up Radiation Oncology at [place], CAROLINA Hilliard (headache) (Primary [address] Ibeth) [address] [place] [address] [place] [phone] [id number] (Wo rk) Social History Tobacco Use Types [...] Sign Reading Time Taken Comments Blood Pressure 114/80 03/01/2014 2:51 PM EDT Pulse 89 03/01/2014 2:51 PM EDT Temperature 37.1 ??C (98.8 ??F) 03/01/2014 2:51 PM EDT Respiratory Rate 20 03/01/2014 2:51 PM EDT Oxygen Saturation 98% 03/01/2014 2:51 PM EDT Inhaled Oxygen Concentration - - Weight 94.8 kg (209 lb) 03/01/2014 2:51 PM EDT Height 160 cm (5' 2.99) 03/01/2014 2:51 PM EDT Body Mass Index 37.03 03/01/2014 2:51 PM EDT documented in this encounter Progress Notes Domonique James, BASIC ACOUSTIC ANALYST - 03/01/2014 3:15 PM EDT Subjective: Patient ID: Shraddha Chavez is a 54 y.o. female who has been seen by provider due to history of breast cancer and treatment with SRS for AVM. She asked to be seen today due to c/o of headache. HPI Patient Active Problem List Diagnosis Code ??? Breast CA 174.9 ??? Blurry vision 368.8 ??? AVM (arteriovenous malformation) 747.60 ??? Allergy, drug 995.27 ??? 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 Back pain, chronic 724.5, 338.29 ??? Seborrheic keratosis 702.19 ??? Tachycardia, unspecified 785.0 Past Surgical History Procedure Date ??? Hysterectomy ovaries not removed ??? [...] Nausea And Vomiting ??? Mobic (Meloxicam) rash Current Outpatient Prescriptions on File Prior to Visit Medication Sig Dispense Refill ??? dexlansoprazole (DEXILANT) 60 mg Cap, Delayed Rel., Multiphasic Take 60 mg by mouth daily. ??? ondansetron (ZOFRAN) 8 mg tablet Take 1 tablet by mouth every 8 hours as needed for Nausea. 20 tablet 3 ??? tamoxifen (NOLVADEX) 20 mg tablet take 1 tablet by mouth once daily 30 tablet 12 ??? b complex vitamins capsule Take 1 capsule by mouth daily. 90 capsule 3 ??? [DISCONTINUED] propranolol (INDERAL) 10 mg Tablet Take 10 mg by mouth daily. Advance Directive: on file Interim History: patient asked to be seen in clinic due to headache. She reports that her niece was recently diagnosed with breast cancer and that she has been in touch with patient for support and certified rehabilitation counselor. Patient has been pleased to assist her niece but it has been a source of worry for her. Headache involve entire head. She has not taken anything for them because she has no funds to get advil--which usually works. She does not want assistance with getting this. After discussion it appears that she just needed to have someone to talk with about her niece. There is no N/V at this time. ROS otherwise non-contributory. Head ache Off heart medication Review of Systems Constitutional: Negative. Negative for fever, chills, activity change, appetite change and unexpected weight change. Respiratory: Negative. Negative for cough, chest tightness and shortness of breath. Cardiovascular: Negative. Negative for chest pain and leg swelling. Patient is now off inderal Gastrointestinal: Negative. Genitourinary: Negative. Musculoskeletal: Negative. Skin: Negative. Neurological: Positive for headaches. Negative for dizziness, speech difficulty and weakness. Hematological: Negative. Psychiatric/Behavioral: Negative. Filed Vitals: 03/01/14 1451 BP: 114/80 Pulse: 89 Temp: 37.1 ??C (98.8 ??F) TempSrc: Oral Resp: 20 Height: 160 cm (5' 2.99) Weight: 94.802 kg (209 lb) SpO2: 98% Objective: Physical Exam Constitutional: She is oriented to person, place, and time. She appears well- developed and well-nourished. No distress. HENT: Head: Normocephalic and atraumatic. Eyes: Conjunctivae normal and EOM are normal. Pupils are equal, [...] has no rales. She exhibits no tenderness. Musculoskeletal: She exhibits no edema and no tenderness. Lymphadenopathy: Head (right side): No submental, [...] is normal. Judgment and thought content normal. Assessment and Plan: Headache--this appears to be stress related. Supportive counseling provided. Patient to obtain advilfrom friend/family for management of headache. Patient to call if headache are persistent or worsen. documented in this encounter Procedure Notes Provider, Scanning - 03/23/2014 10:54 AM EDTAssociated Order(s): SCAN DOC: CT SCAN Provider, Scanning - 03/23/2014 10:53 AM EDTAssociated Order(s): SCAN DOC: MRI/MRA documented in this encounter ED Notes Provider, Scanning - 03/23/2014 10:52 AM EDT documented in this encounter Plan of Treatment Not on filedocumented as of this encounter Procedures Procedure Name Priority Date/Time Associated Diagnosis Comme nts LAB SCAN 06/26/2014 12:[address] SCAN (SCAN) 03/23/2014 10:54 AM Result s for this EDT procedure are i n the results section . MRI/MRA SCAN 03/23/2014 10:53 AM Results for this EDT procedure are i n the results section . documented in this encounter Results SCAN DOC: LAB (06/26/2014 12:00 AM EST) Narrative This result has an attachment that is no t available. Scanning Provider MEDIA MGR SCAN EXT ORDR/RSLT SCAN DOC: CT SCAN (03/23/2014 10:54 AM EDT) Anatomical Region Laterality Modality Other Narrative 03/23/2014 10:59 AM EDT Procedure Note Provider, Scanning - 03/23/2014 10:54 AM EDT Scanning Provider MEDIA MGR SCAN EXT ORDR/RSLT SCAN DOC: MRI/MRA (03/23/2014 10:53 AM EDT) Anatomical Region Laterality Modality Other Narrative 03/23/2014 10:59 AM EDT Procedure Note Provider, Scanning - 03/23/2014 10:53 AM EDT Scanning Provider MEDIA MGR SCAN EXT ORDR/RSLT documented in this encounter Visit Diagnoses Diagnosis CERVANTES (headache) - Primary Headache documented in this encounter Care Teams Multilith Operator Relationship Specialty Start Date End Date Michela Stevenson APRN PCP - General 04/29/10 06/07/16 documented as of this encounter
--- OUTSIDE RECORDS SUMMARY | 2022-05-06 08:19 | XMS_ITS | Encounter Summary ---
:1960 Author Organization [facility] [place] [address] Care Team Providers Name Role Phone Michela Stevenson [place] Primary Care Provider Reason for Visit Reason Comments Tachycardia Encounter Details Date Type Department Care Team Description 10/09/2013 Office Visit Cardiology at [facility], Tachycardia ([facility] MD Quinton Dx) [place] [address] CARDIOLOGY DEPT. [phone] [place], [place] [address] Social History Tobacco Use Types [...] Sign Reading Time Taken Comments Blood Pressure 116/70 10/09/2013 12:56 PM EDT Pulse 90 10/09/2013 12:56 PM EDT reg Temperature - - Respiratory Rate 16 10/09/2013 12:56 PM EDT Oxygen Saturation 95% 10/09/2013 12:56 PM EDT room a ir Inhaled Oxygen Concentration - - Weight 96.6 kg (213 lb) 10/09/2013 12:56 PM EDT Height 160 cm (5' 3) 10/09/2013 12:56 PM EDT Body Mass Index 37.73 10/09/2013 12:56 PM EDT documented in this encounter Progress Notes Quinton Aragon MD - 10/10/2013 4:55 PM EDT October 09, 2013 Shraddha Chavez A#[id number] Subjective Shraddha Chavez is a pleasant, 53-year-old woman referred to the Cardiology Clinic for assessment of tachycardia at the request of Michela Stevenson APRN. The patient was being seen on a routine basis and her heart rate was noted to be in the 130 beat per minute range. The patient was not aware of the higher heart rate and there appeared to be no obvious provocation. This prompted performance of a transient arrhythmia monitor which is still in place and some of those downloads have shown sinus tachycardia with some ventricular ectopy but with baseline artifact. The patient was placed on low dose propranolol (10mg twice daily) and she is feeling quite well otherwise. She denies any distinct awareness of tachycardia, sudden lightheadedness, presyncope, syncope, exertional-chest pain, or dyspnea. The patient has been able to carry on her activities of daily living without compromise or change in her overall functional capacity. There is no history of acquired or [...] mg by mouth 2 times daily. ??? ERGOCALCIFEROL (VITAMIN D2) 50,000 UNIT CAPSULE Oral Take 50,000 Units by mouth once a week. Patient takes twice weekly ??? ONDANSETRON HCL 8 MG TABLET Oral [...] Take 60 mg by mouth daily. ??? LORATADINE 10 MG TABLET Oral Take 1 tablet by mouth daily. 30 tablet 1 Medical illnesses include degenerative joint disease, history of right breast cancer with subsequentchemotherapy, arteriovenous malformation with cephalagia, tobacco abuse, GERD. Surgical background includes right shoulder arthroscopy, bilateral total knee replacements, and partial right mastectomy with sentinel node biopsy/resection. Her breast therapy a number of years ago did include chemotherapy. There is no history of lung, renal, endocrine disease. Social History The patient is single and has two grown daughters and several grandchildren. 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 She has not been working recently. Her tobacco habit includes about 4-8 cigarettes per day and she is trying to taper that to quit. She has been smoking according to her history since her early teenage years. There is no history of alcohol excess. Family History Reveals possible cardiomyopathy in her father. No history of sudden . Review of Systems HEENT: She does wear corrective lenses for reading and sometimes for watching television. Denies double vision and blurred vision. Denies tinnitus, reduction in auditory acuity. Pulmonary: Denies chronic cough, hemoptysis, wheezing. GI: Her appetite is good and her weight is stable. She comments that she did gain significant weightat the time of her chemotherapy that she has not lost. No hematemesis, melena, or hematochezia. There is some reflux symptomatology that is under control with Dexilant. : Denies nocturia, hematuria, pyuria, and polyuria. Rheumatologic: Has had multiple joint procedures as mentioned. Some occasional hip pain. Neurological: Has headaches and history of AVM. No recent lateralizing weakness, neuropathy. Objective General: Physical exam reveals a moderately overweight, alert, cooperative, 53-year-old white femalewith the following vital signs: blood pressure was 116/70, pulse is regular at a rate of 75 beats per minute, respiratory rate is 12 and she was afebrile with an 02 saturation on room air of 95%, weight is 213 pounds with a height of 5???3?? . HEENT: Eyes reveal no scleral icterus or [...] clubbing, or edema. Neurological: Grossly non-focal. Laboratory Data Resting electrocardiogram today shows sinus rhythm at a rate of 67 beats per minute and the tracing is otherwise normal. I reviewed her transient arrhythmia monitor and that showed sinus tachycardia onseveral occasions at variable rates. There was occasional ectopy. The patient had blood work performed at [facility] in June of this year demonstrating a hemoglobin of 13.7, hematocrit 41, white count was normal, platelet count 228,000.Biochemical profile at the same time showed normal liver function tests and electrolytes. Creatininewas 1.3 which was mildly elevated. I do not see a thyroid panel. Assessment 1. Tachycardia, consistent with inappropriate sinus tachycardia. 2. No overt evidence of congenital heart disease or acquired heart disease. Assess for cardiomyopathy in light of prior chemotherapy. Plan 1. I talked to the patient and her sister about the possible mechanisms for her elevated heart rate.I talked about sympathetic and parasympathetic tone as well as factors such as anemia, infection, anxiety, physical activity, and thyroid excess as possible provocative factors. There was nothing obvious in her story and her ECG certainly does not suggest any other worrisome pathologies such as pre-excitation, etcetera. 2. I told the patient that it is reasonable to maintain a low dose of propranolol given that she is tolerating this agent but there is a question of whether this drug started a couple of weeks ago was causing some mild skin eruption in her forearms. It may have to be switched to a low dose of metoprolol if this possible dermatologic reaction persists. 3. I have asked the patient to obtain a TSH and T4 today as well as a transthoracic echocardiogram. Anticipating that those studies will be normal, I believe that her management should be just with empiric low-dose treatment. Her transient arrhythmia monitor is to be removed in another couple of days and I would be happy to review that final report once available. 4. I have not scheduled this lady for routine cardiology follow-up unless some of her laboratory data, particularly the echocardiogram, requires further review and discussion. I spent 40 minutes of this 50 minute office evaluation in direct discussion and counseling of the patient. I addressed her questions. I called the patient on 10/10/13 to provide the report on her thyroid panel and Echo. I advised that she remain on the propranolol at low dose for the next 3-6 months and then consider reducing or stopping the agent at Ms. Stevenson judgement. EC/lkr Addendum: The thyroid panel and echo were normal as below: Lab Results Component Value Date TSH 1.63 10/09/2013 T4 was 8.5 Echo: 1. There is normal global left ventricular systolic function. The quantitative left ventricular ejection fraction by biplane Osborn's method is 67%. There are no left ventricular segmental wall motion abnormalities. 2. Right ventricular chamber size, wall thickness, and systolic function are within normal limits. 3. There is no hemodynamically significant valve disease. documented in this encounter Plan of Treatment Not on filedocumented as of this encounter Procedures Procedure Name Priority Date/Time Associated Diagnosis Comme nts TSH Routine 10/09/2013 2:00 PM Tachycardia Results f or this EDT procedure are i n the results section . T4 TOTAL Routine 10/09/2013 2:00 PM Tachycardia Results f or this EDT procedure are i n the results section . EKG 12-LEAD Routine 10/09/2013 1:28 PM Tachycardia Results f or this EDT procedure are i n the results section . documented in this encounter Results Echocardiogram Transthoracic(Leb) (10/09/2013 3:12 PM EDT) P athologist Signature EF 67 HEARTLAB SYSTEM Anatomical Region Laterality Modality Other Specimen (Source) Anatomical Location Collection Method / Collectio n Time Received Time / Laterality Volume 10/09/2013 Narrative 10/09/2013 3:17 PM EDT Procedure: ? Transthoracic Echocardiogram Patient: ? YING Rivas ?(Age): 1960(53) Med Rec#: ?[id number] ? Sex: ?F ? Site Loc: [facility] ? Ht / Wt: ??160(cm)/96.6(kg Pt. Loc: ? Echo Lab ? BSA: ?2.07 Study Date: ?10/09/2013 ? Pt. Type: Outpatient Tape: ?[id number] ? Referring: Quinton Aragon Referring: Michela Stevenson Blasting Contract Man: Meghan Sage BA, [facility] Diagnosis: ??Arrhythmia (427.89) ??Neoplasm of Unspecified Nature of Oth er Specific Site (239.8) CPT Code(s): ??Echo Full (02530), ??Spec tral Doppler (95896), ??Color Doppler (13494), Indication(s): ??Tachycardia Rhythm: HR ?BP ?116/70 ?? SUMMARY: 1. There is normal global left ventricul ar systolic function. ??The quantitative left ventricular ejection f raction by biplane Osborn's method is 67%. ??There are no left ventr icular segmental wall motion abnormalities. 2. Right ventricular chamber size, wall thickness, and systolic function are within normal limits. 3. There is no hemodynamically significa nt valve disease. 4. See remainder of report for additiona l findings. FINDINGS: Study Quality ?Adequate Left Ventricle ?The left ventricular chamber size is normal. ?Left ventricular wall thickness is normal. ?There is normal global left ventri cular systolic function. ?The quantitative left ventricular ejection fraction by biplane Osborn's method is 67%. ?There are no left ventricular segm ental wall motion abnormalities. ?Doppler assessment is consistent w ith normal left sided filling pressure. Left Atrium ?The left atrium is normal in size. Right Ventricle ?Right ventricular chamber size, wa ll thickness, and systolic function are within normal limits. Right Atrium ?The right atrium is normal in size . Aortic Valve ?The aortic valve is tricuspid. ?There is no evidence of aortic chele ve stenosis. ?There is a trace of aortic regurgi tation present. Mitral Valve ?The mitral valve appears normal in structure and function. ?There is trace mitral regurgitatio n present. Tricuspid Valve ?The tricuspid valve appears normal in structure and function. ?There is trace tricuspid regurgita tion present. Pulmonic Valve ?The pulmonic valve appears normal in structure and function. Pericardium ?The pericardium appears normal and there is no evidence of a pericardial effusion. Aorta ?The aortic root is normal in size. ?The ascending aorta is normal in s ize. Pulmonary Artery ?The main pulmonary artery appears normal. Venous ?The inferior vena cava is poorly v isualized. Misc ?See remainder of report for additi onal findings. ?Two-dimensional echo, spectral Dop pler and color Doppler performed. Wall Motion: Segment Name ?Rest ? Base-Anteroseptal ?? Normal ? Base-Anterior ? Normal ? Base-Anterolateral ??Normal ? Base-Posterolateral Normal ? Base-Inferior ? Normal ? Base-Inferoseptal ?? Normal ? Mid-Anteroseptal ?Normal ? Mid-Anterior ?Normal ? Mid-Anterolateral ?? Normal ? Mid-Posterolateral ??Normal ? Mid-Inferior ?Normal ? Mid-Inferoseptal ?Normal ? Lamar-Septal ? Normal ? Lamar-Anterior ? Normal ? Lamar-Lateral ?Normal ? Lamar-Inferior ? Normal ? Lamar-Tip ?Normal ? Chambers ?Value ?Units (Range) ? EF ??Bi-p Simp ? 67 ? % (55 to 80) ? 3D LVEF ? 66 ? % ? 3D end di vol ? 78 ? ml ? 3D end sys vol ?26 ? ml ? IVSd MM ? 0.9 ?cm (0.3 to 1.1) ? LVIDd MM ?5.1 ?cm (3.7 to 5.6) ? PWd MM ?0.8 ?cm (0.6 to 1.1) ? LVIDs MM ?3.4 ?cm (2.3 to 3.9) ? LVFS MM ? 33 ? % (28 to 42) ? LV mass ? 151.8 ?gm ? LA area ? 16 ? cm2 (<21) ? RA area ? 13 ? cm2 (<18) ? Ao root ? 3.2 ?cm (2.1 to 3.6) ? Asc Ao ?3 ?cm (2 to 3.5) ? Mitral Valve ?Value ?Units (Range) ? E peak ?0.71 ? m/sec ? E/A ratio ? 1.1 ?ratio ? MVDT ?194 ?msec ? E1 ?0.07 ? m/sec ? E/E1 ?10.1 ? ratio ? Tricuspid/Pulmonic Valves ?Value ?Units (Range) ? TR peak vicky ? 2.5 ?m/sec ? This report has been electronically sign ed by: _ Deric Cardona M.D. ? 10/09/2013 15:16:46 Images reviewed and interpretation ana lee [facility] Cardiac Ultrasound Laboratory Procedure Note Deric Cardona MD - 10/09/2013Format ting of this note might be different from the original. Procedure: Transthoracic Echocardiogram Patient: YING Rivas (Age): [birth year]) Med Rec#: [id number] Sex: F [place] Loc: [facility] Ht / Wt: 160(cm)/96.6(kg Pt. Loc: Echo Lab BSA: 2.07 Study Date: 10/09/2013 Pt. Type: Outpati ent Tape: [id number] Referring: Quinton Aragon Referring: Michela Stevenson Blasting Contract Man: Meghan Sage BA, [facility] Diagnosis: Arrhythmia (427.89) Neoplasm of Unspecified Nature of Other Specific Site (239.8) CPT Code(s): Echo Full (21403), Spectral Doppler (72441), Color Doppler (21853), Indication(s): Tachycardia Rhythm: HR BP 116/70 SUMMARY: 1. There is normal global left ventricul ar systolic function. The quantitative left ventricular ejection f raction by biplane Osborn's method is 67%. There are no left ventric ular segmental wall motion abnormalities. 2. Right ventricular chamber size, wall thickness, and systolic function are within normal limits. 3. There is no hemodynamically significa nt valve disease. 4. See remainder of report for additiona l findings. FINDINGS: Study Quality Adequate Left Ventricle The left ventricular chamber size is no rmal. Left ventricular wall thickness is norm al. There is normal global left ventricular systolic function. The quantitative left ventricular eject ion fraction by biplane Osborn's method is 67%. There are no left ventricular segmental wall motion abnormalities. Doppler assessment is consistent with n ormal left sided filling pressure. Left Atrium The left atrium is normal in size. Right Ventricle Right ventricular chamber size, wall th ickness, and systolic function are within normal limits. Right Atrium The right atrium is normal in size. Aortic Valve The aortic valve is tricuspid. There is no evidence of aortic valve st enosis. There is a trace of aortic regurgitatio n present. Mitral Valve The mitral valve appears normal in stru cture and function. There is trace mitral regurgitation pre sent. Tricuspid Valve The tricuspid valve appears normal in s tructure and function. There is trace tricuspid regurgitation present. Pulmonic Valve The pulmonic valve appears normal in st ructure and function. Pericardium The pericardium appears normal and ther e is no evidence of a pericardial effusion. Aorta The aortic root is normal in size. The ascending aorta is normal in size. Pulmonary Artery The main pulmonary artery appears judie l. Venous The inferior vena cava is poorly visual ized. Misc See remainder of report for additional findings. Two-dimensional echo, spectral Doppler and color Doppler performed. Wall Motion: Segment Name Rest Base-Anteroseptal Normal Base-Anterior Normal Base-Anterolateral Normal Base-Posterolateral Normal Base-Inferior Normal Base-Inferoseptal Normal Mid-Anteroseptal Normal Mid-Anterior Normal Mid-Anterolateral Normal Mid-Posterolateral Normal Mid-Inferior Normal Mid-Inferoseptal Normal Lamar-Septal Normal Lamar-Anterior Normal Lamar-Lateral Normal Lamar-Inferior Normal Lamar-Tip Normal Chambers Value Units (Range) EF Bi-p Simp 67 % (55 to 80) 3D LVEF 66 % 3D end di vol 78 ml 3D end sys vol 26 ml IVSd MM 0.9 cm (0.3 to 1.1) LVIDd MM 5.1 cm (3.7 to 5.6) PWd MM 0.8 cm (0.6 to 1.1) LVIDs MM 3.4 cm (2.3 to 3.9) LVFS MM 33 % (28 to 42) LV mass 151.8 gm LA area 16 cm2 (<21) RA area 13 cm2 (<18) Ao root 3.2 cm (2.1 to 3.6) Asc Ao 3 cm (2 to 3.5) Mitral Valve Value Units (Range) E peak 0.71 m/sec E/A ratio 1.1 ratio MVDT 194 msec E1 0.07 m/sec E/E1 10.1 ratio Tricuspid/Pulmonic Valves Value Units (Range) TR peak vicky 2.5 m/sec This report has been electronically sign ed by: _ Deric Cardona M.D. 10/09/2013 15:16: 46 Images reviewed and interpretation verif ied [facility] Cardiac Ultrasound Laboratory Quinton Aragon MD ECHO ORDERABLES TSH (10/09/2013 2:00 PM EDT) athologist Signature TSH 1.63 0.27 - 4.20 CERNER mcIU/mL MILLENNIUM Specimen Anatomical Collection Method Collection Time Receive d Time (Source) Location / / Volume Laterality Blood specimen 10/09/2013 2:00 PM 014 2:07 (specimen) EDT PM EDT Resulting Agency Comment Spec In Lab Quinton Aragon MD CHEMISTRY ORDERABLES Performing Organization Address [facility] Phon e Number [address] CERNER MILLENNIUM T4 (10/09/2013 2:00 PM EDT) athologist Signature T4, total 8.5 5.1 - 10.8 CERNER mcg/dL MILLENNIUM Comment: Reference Range: Cord Blood: ??6.9-14.4 mcg/dL Females: ??7.2-14.2 mcg/dL Pediatric ranges: ??Interpret with cauti on-ranges have not been verified Specimen Anatomical Collection Method Collection Time Receive d Time (Source) Location / / Volume Laterality Blood specimen 10/09/2013 2:00 PM 014 2:07 (specimen) EDT PM EDT Resulting Agency Comment Spec In Lab Quinton Aragon MD CHEMISTRY ORDERABLES Performing Organization Address [facility] [place] [address] CERNER MILLENNIUM EKG 12 Lead (10/09/2013 1:28 PM EDT) Component Value Ref Range Test Analysis Performed Pathologis t Method Time At Signature Ventricular rate 67 BPM MUSE SYSTEM Atrial Rate 67 BPM MUSE SYSTEM P-R Interval 144 ms MUSE SYSTEM QRS Duration 82 ms MUSE SYSTEM Q-T Interval 376 ms MUSE SYSTEM QTC Calculated 397 ms MUSE SYSTEM (Bezet) Calculated P [place] 26 degrees MUSE SYSTEM Calculated R [place] 17 degrees MUSE SYSTEM Calculated T [place] 18 degrees MUSE SYSTEM INTERPRETATION Normal sinus rhythm MUSE SYSTEM Normal ECG When compared with ECG of 22-JAN-2012 19:17, No significant change was found Confirmed by MD Jessica, Logan ([id number]) on 10/09/2013 2:13:24 PM Specimen Anatomical Collection Method Collection Time Receive d Time (Source) Location / / Volume Laterality 10/09/2013 1:28 PM 4 2:13 EDT PM EDT Quinton Aragon MD ECG ORDERABLES Performing Organization Address City/State/ZIP Code Phon e Number MUSE SYSTEM documented in this encounter Visit Diagnoses Diagnosis Tachycardia - Primary Tachycardia, unspecified Tachycardia Tachycardia, unspecified documented in this encounter Care Teams Assignment Manager Relationship Specialty Start Date End Date Michela Stevenson APRN PCP - General 04/29/10 06/07/16 documented as of this encounter
--- OUTSIDE RECORDS SUMMARY | 2022-05-06 08:19 | XMS_ITS | Encounter Summary ---
:1960 Author Organization [facility] Address [address] [place] [address] Care Team Providers Name Role Phone Luz Stevensonmaurice Stanley APRN Primary Care Provider Reason for Visit Reason Comments Tachycardia Encounter Details Date Type Department Care Team Description 02/16/2014 [place] [facility]inton greene, Tachycardia, [facility] unspecified ([address] [facility] Dx) [place] [address] CARDIOLOGY DEPT. [place], [place] [address] (Wo rk) Social History Tobacco [...] Sign Reading Time Taken Comments Blood Pressure 124/76 02/16/2014 9:06 AM EDT Pulse 66 02/16/2014 9:06 AM EDT Temperature - - Respiratory Rate - - Oxygen Saturation 98% 02/16/2014 9:06 AM EDT Inhaled Oxygen Concentration - - Weight 93.9 kg (207 lb) 02/16/2014 9:06 AM EDT Height 160 cm (5' 3) 02/16/2014 9:06 AM EDT Body Mass Index 36.67 02/16/2014 9:06 AM EDT documented in this encounter Progress Notes Quinton Aragon MD - 02/16/2014 9:17 AM EDT Subjective Shraddha Chavez is a pleasant, 53-year-old woman returning for follow up of her tachycardia management. She had a pheo screen that I ordered after her last visit and those studies were negative. Symptomatically she is most bothered by fatigue and left inframammary chest pain or ache. She states that sheis having this pain now and describes it as sharp in nature with some radiation toward the left infrascapular area. No associated dyspnea, cough, pleuriitic component. There is no history of acquired or [...] TABLET Oral Take 10 mg by mouth daily. ??? DEXLANSOPRAZOLE 60 MG CAPSULE,BIPHASE DELAYED RELEASE Oral Take 60 mg by mouth daily. ??? ONDANSETRON HCL 8 MG TABLET Oral Take 1 tablet by mouth every 8 hours as needed for Nausea. 20 tablet 3 ??? TAMOXIFEN 20 MG TABLET take 1 tablet by mouth once daily 30 tablet 12 ??? B COMPLEX VITAMINS CAPSULE Oral Take 1 capsule by mouth daily. 90 capsule 3 Filed Vitals: 02/16/14 0906 BP: 124/76 Pulse: 66 Objective General: Physical exam reveals her to appear well but yawning at times. HEENT: Eyes reveal no scleral icterus or [...] Results Component Value Date TSH 1.63 10/09/2013 Pheo screen negative. ECG today during chest pain is normal and unchanged. Assessment 1. Tachycardia, consistent with inappropriate sinus tachycardia. 2. No overt evidence of congenital heart disease or acquired heart disease. 3. Paroxysmal hypotension and periodic fatigue, ? Propranolol sensitivity 4. Atypical chest pain Plan 1. I talked to the patient about the negative ECG and her atypical symptoms. She had blood work thissummer that showed a Hgb of 13.7 and normal electrolyte pattern. 2. I advised that she stop the propranolol to see if that is a contributor to her fatigue. She coulduse it prn if she notes symptomatic tachycardia and I gave her guidelines on this plan. 3. I understand that her other physicians are planning some GI imaging and she may benefit from a screening CXR in light of the left-sided discomfort. I spent 20 minutes of this 25 minute office visit in direct counseling and addressing the patient's question. Cardiology follow up will be prn. documented in this encounter Plan of Treatment Not on filedocumented as of this encounter Procedures Procedure Name Priority Date/Time Associated Diagnosis Comme nts EKG 12-LEAD Routine 02/16/2014 9:27 AM Tachycardia, Results f or this EDT unspecified procedure are i n the results section. documented in this encounter Results EKG 12 Lead (02/16/2014 9:27 AM EDT) Component Value Ref Range Test Analysis Performed Pathologis t Method Time At Signature Ventricular rate 66 BPM MUSE SYSTEM Atrial Rate 66 BPM MUSE SYSTEM P-R Interval 144 ms MUSE SYSTEM QRS Duration 82 ms MUSE SYSTEM Q-T Interval 420 ms MUSE SYSTEM QTC Calculated 440 ms MUSE SYSTEM (Bezet) Calculated P [place] 33 degrees MUSE SYSTEM Calculated R [place] 15 degrees MUSE SYSTEM Calculated T [place] 20 degrees MUSE SYSTEM INTERPRETATION Normal sinus rhythm with sinus arrhythmia MUSE SYSTEM Normal ECG When compared with ECG of 09-OCT-2013 13:28, No significant change was found Confirmed by Rogers VELEZ MD, Jose ([id number]) on 02/16/2014 10:11 :40 AM Specimen Anatomical Collection Method Collection Time Receive d Time (Source) Location / / Volume Laterality 02/16/2014 9:27 AM 4 EDT 10:11 AM EDT Quinton Aragon MD ECG ORDERABLES Performing Organization Address City/State/ZIP Code Phon e Number MUSE SYSTEM documented in this encounter Visit Diagnoses Diagnosis Tachycardia, unspecified - Primary documented in this encounter Care Teams Popped Corn Oven Attendant Relationship Specialty Start Date End Date Michela Stevenson APRN PCP - General 04/29/10 06/07/16 documented as of this encounter
--- OUTSIDE RECORDS SUMMARY | 2022-05-06 08:19 | XMS_ITS | Encounter Summary ---
:1960 Author Organization [facility] [place] [address] Care Team Providers Name Role Phone Michela Stevenson Jaden FIGUEROA Primary Care Provider Encounter Details Date Type Department Care Team Description 02/07/2014 Hospital Encounter Laboratory [place], Tachycardia, [facility] MD Quinton unspecified [place], [place] CENTER [address] CARDIOLOGY DEPT. [phone] [place] [address] Social History Tobacco Use Types Packs/Day Years [...] Sig Dispensed Refills Start Date End Date prochlorperazine Take 10 mg by 0 01/27/201208/19 (COMPAZINE) 10 mg Tablet mouth. ondansetron (ZOFRAN) 8 mg Take 1 tablet by 20 tablet 3 08/0606/27/2014 tabletIndications: Nausea, mouth every 8 Radiation effect hours as needed for Nausea. tamoxifen (NOLVADEX) 20 mg take 1 tablet by 30 tablet 12 07/02/2014 tabletIndications: mouth once daily Malignant neoplasm of right female breast b complex vitamins Take 1 capsule by 90 capsule 3 03/30/2013 04/06/2014 capsuleIndications: Breast mouth daily. cancer documented as of this encounter Plan of Treatment Not on filedocumented as of this encounter Procedures Procedure Name Priority Date/Time Associated Comments Diagnosis U24 HRS AND VOLUME Routine 02/07/2014 6:00 Result s for this AM EDT procedure are i n the results section. METANEPHRINES, Routine 02/07/2014 6:00 Tachycardia, Results fo r this FRACTIONATED, URINE, 24 AM EDT unspecified proc edure are in HOUR the results section. CATECHOLAMINES FRAC Routine 02/07/2014 6:00 Tachycardia, Resul ts for this FREE URINE, 24 HR AM EDT unspecified procedure are in the results section. documented in this encounter Results U24 Hrs and Volume (02/07/2014 6:00 AM EDT) P athologist Signature Hours 24 hour(s) [place] [facility] Collected Moov cc.IUM Urine TV (ml) 1800 mL deltaDNA Specimen Anatomical Collection Method Collection Time Receive d Time (Source) Location / / Volume Laterality Urine specimen 02/07/2014 6:00 AM 014 (specimen) EDT 11:30 AM EDT Resulting Agency Comment Spec In Lab [place] Aragon MD CHEMISTRY ORDERABLES Performing Organization Address City/State/ZIP Code Phon e Number [place] [phone] CERNER MILLENNIUM Catecholamines Frac Free urine, 24 hr (02/07/2014 6:00 AM EDT) Component Value Ref Test Analysis Performed At [facility] gist Range Method Time Signature U24 Catechol, CERNER Frac Test ?Result ??Flag ??Unit ?RefValue MILLENNIUM Catecholamine Fract, Free, U ??Collection Duration ? 24 ?h ??Urine Volume ?1800 ?mL ??Norepinephrine ?34 ?mcg/2 4 h ??15-80 ??Epinephrine ? 3.2 ? mcg/2 4 h ??<21 ??Dopamine ?88 ? mcg/24 h ??65-400 Test Performed by: [place] [address] Manager Community: Zackary Johnson III, M.D. Specimen Anatomical Collection Method Collection Time Receive d Time (Source) Location / / Volume Laterality Urine specimen 02/07/2014 6:00 AM 014 1:10 (specimen) EDT PM EDT Resulting Agency Comment Spec In Lab [place] Aragon MD URINE ORDERABLES Performing Organization Address City/State/[place] [address] CERNER MILLENNIUM Metanephrines, Fractionated, urine, 24 hour (02/07/2014 6:00 AM EDT) [facility] Method Time Signature U24 CERNER Metanephrines Test [...] ??Urine Volume ?1800 ?mL Test Performed by: [place] [address] Manager Community: Zackary Johnson III, M.D. Specimen Anatomical Collection Method Collection Time Receive d Time (Source) Location / / Volume Laterality Urine specimen 02/07/2014 6:00 AM 014 1:10 (specimen) EDT PM EDT Resulting Agency Comment Spec In Lab [place] Aragon MD URINE ORDERABLES Performing Organization Address City/State/[place] [address] [address] [facility] documented in this encounter Visit Diagnoses Diagnosis Tachycardia, unspecified documented in this encounter Care Teams Gate Manager Relationship Specialty Start Date End Date Michela Stevenson APRN PCP - General 04/29/10 06/07/16 documented as of this encounter
--- OUTSIDE RECORDS SUMMARY | 2022-05-06 08:19 | XMS_ITS | Encounter Summary ---
:1960 Author Organization [facility] [place] [address] Care Team Providers Name Role Phone Michela Stevenson [place] Primary Care Provider Encounter Details Date Type Department Care Team Description 10/18/2013 Hospital [place] [address] Social History Tobacco Use Types Packs/Day [...] 0 01/27/201208/19 (COMPAZINE) 10 mg Tablet mouth. Cholecalciferol, Vitamin Take by mouth 2 0 12/28/2013 D3, 50,000 unit Cap times daily. ergocalciferol (VITAMIN D) Take 50,000 Units 0 12/28/2013 50,000 unit capsule by mouth once a week. Patient takes twice weekly ondansetron (ZOFRAN) 8 mg Take 1 tablet by 20 tablet 3 08/0606/27/2014 tabletIndications: Nausea, mouth every 8 Radiation effect hours as needed for Nausea. tamoxifen (NOLVADEX) 20 mg take 1 tablet by 30 tablet 12 07/02/2014 tabletIndications: mouth once daily Malignant neoplasm of right female breast b complex vitamins Take 1 capsule by 90 capsule 3 03/30/2013 04/06/2014 capsuleIndications: Breast mouth daily. cancer loratadine (CLARITIN) 10 mg Take 1 tablet by 30 tablet 1 12/14/2013 tablet mouth daily. documented as of this encounter Plan of Treatment Not on filedocumented as of this encounter Procedures Procedure Name Priority Date/Time Associated Diagnosis Comme nts MRI HEAD ANGIOGRAM Routine 10/18/2013 3:45 PM Res ults for this WO CONTRAST EDT procedure are i n the results section. documented in this encounter Results MRI head angiogram WO contrast (10/18/2013 3:45 PM EDT) Anatomical Region Laterality Modality Head Magnetic Resonance Specimen (Source) Anatomical Collection Method Collection Time Re ceived Time Location / / Volume Laterality 10/18/2013 3:45 PM EDT Narrative 10/18/2013 5:06 PM EDT Examination MRA [facility] without contrast ?? MR BRAIN W/WO CONTRAST Clinical History Treated with radiation therapy for AVM Assess response to treatment Comparison 04/21/2013, 02/14/2013. Technique MR of the brain performed prior to and f ollowing intravenous administration of 9.6 mL Gadavist. ??MRA [facility] per formed without the use of intravenous contrast. Findings MRI brain: ??The ventricles remain judie l in size and contour. ??Abnormal T2 signal is present in the anteromedial le ft temporal lobe extending to the amygdala and subinsular region. ??Enhanc ement is present at the margins of the area of the area. ??FLAIR signal abnorma lity adjacent to the rim enhancing lesion has slightly decreased compared t o the previous study. ??The degree of enhancement appears similar. ??There is no evidence of restricted diffusion. ?? Cerebral parenchyma otherwise appears no rmal in signal. ??There are no other areas of abnormal enhancement. MRA: ??The internal cerebral carotid art eries are normal in course and caliber. ?? MCA, BREONNA, and visualized branches appear normal. ??The intradural vertebral arteries, basilar artery, and posterior cerebral arteries appear normal course and caliber. ??There is no evidence of a rteriovenous malformation. Impression Unchanged area of enhancement in the ant erior medial left temporal lobe presumably representing radiation necros is. ??No evidence of recurrent or residual arteriovenous malformation. Procedure Note Lb Hicks MD - 10/18/2013Format ting of this note might be different from the original. Examination MRA [facility] without contrast MR BRAIN W/WO CONTRAST Clinical History Treated with radiation therapy for AVM Assess response to treatment Comparison 04/21/2013, 02/14/2013. Technique MR of the brain performed prior to and f ollowing intravenous administration of 9.[address] [facility] perfo rmed without the use of intravenous contrast. Findings MRI brain: The ventricles remain normal in size and contour. Abnormal T2 signal is present in the anteromedial le ft temporal lobe extending to the amygdala and subinsular region. Enhancem ent is present at the margins of the area of the area. FLAIR signal abnormali ty adjacent to the rim enhancing lesion has slightly decreased compared t o the previous study. The degree of enhancement appears similar. There is no evidence of restricted diffusion. Cerebral parenchyma otherwise appears no rmal in signal. There are no other areas of abnormal enhancement. MRA: The internal cerebral carotid arter ies are normal in course and caliber. MCA, BREONNA, and visualized branches appear normal. The intradural vertebral arteries, basilar artery, and posterior cerebral arteries appear normal course and caliber. There is no evidence of art eriovenous malformation. Impression Unchanged area of enhancement in the ant erior medial left temporal lobe presumably representing radiation necros is. No evidence of recurrent or residual arteriovenous malformation. Domonique James APRN IMG MRI ORDERABLES documented in this encounter Visit Diagnoses Not on filedocumented in this encounter Care Teams Director Of Intelligence Relationship Specialty Start Date End Date Michela Stevenson APRN PCP - General 04/29/10 06/07/16 documented as of this encounter
--- OUTSIDE RECORDS SUMMARY | 2022-05-06 08:19 | XMS_ITS | Encounter Summary ---
:1960 Author Organization [facility] [place] [address] Care Team Providers Name Role Phone Michela Stevenson APRN Primary Care Provider Encounter Details Date Type Department Care Team Description 03/31/2013 Ancillary Appointment Hematology Oncology at [facility] No Show [facility] [address] [place] [address] Social History Tobacco Use Types Packs/Day Years Used Date Smoking Tobacco: Every Day Cigarettes 0.5 37 L ast attempted to quit: 05/21/2010 Smokeless Tobacco: Never Alcohol Use Standard Drinks/Week Comments Yes 0 (1 standard drink = 0.6 oz pure alcoho l) very rare Sex Assigned at Date Recorded Not on file documented as of this encounter Progress Notes Elizabeth Hartman RD - 03/31/2013 8:53 AM EDT Pt was a no-show. Will f/u with a telephone call. Elizabeth Hartman RD, LD documented in this encounter Plan of Treatment Not on filedocumented as of this encounter Visit Diagnoses Not on filedocumented in this encounter Care Teams Guidance Services Coordinator Relationship Specialty Start Date End Date Michela Stevenson APRN PCP - General 04/29/10 06/07/16 documented as of this encounter
--- OUTSIDE RECORDS SUMMARY | 2022-05-06 08:19 | XMS_ITS | Encounter Summary ---
:1960 Author Organization [facility] [place] [address] Care Team Providers Name Role Phone Michela Stevenson Jaden FIGUEROA Primary Care Provider Encounter Details Date Type Department Care Team Description 06/29/2013 Hospital En[place] [facility] [place] [facility] [place] [address] Social History Tobacco Use Types Packs/Day Years Used Date Smoking Tobacco: Every Day Cigarettes 0.5 37 Smokeless Tobacco: Never Alcohol Use Standard Drinks/Week Comments Yes 0 (1 standard drink = 0.6 oz pure alcoho l) very rare Sex Assigned at Date Recorded Not on file documented as of this encounter Medications at Time of Discharge Medication Sig Dispensed Refills Start Date End Date prochlorperazine Take 10 mg by 0 01/27/201208/19 (COMPAZINE) 10 mg Tablet mouth. b complex vitamins Take 1 capsule by 90 capsule 3 03/30/2013 04/06/2014 capsuleIndications: Breast mouth daily. cancer ondansetron (ZOFRAN) 8 mg Take 1 tablet by 20 tablet 3 08/0608/31/2013 tabletIndications: Nausea, mouth every 8 Radiation effect hours as needed for Nausea. aspirin 325 mg tablet Take 325 mg by 0 10/09/2013 mouth daily. tamoxifen (NOLVADEX) 20 mg Take 1 tablet by 30 tablet 12 08/01/2013 tabletIndications: Breast mouth daily. cancer loratadine (CLARITIN) 10 mg Take 1 tablet by 30 tablet 1 12/14/2013 tablet mouth daily. documented as of this encounter Plan of Treatment Not on filedocumented as of this encounter Procedures Procedure Name Priority Date/Time Associated Diagnosis Comme nts MAMMO SCREENING CAD Routine 06/29/2013 10:27 Infiltrating duct al Results for this BILATERAL AM EST carcinoma of breast procedur e are in the results section. documented in this encounter Results Mammo digital bilateral Screening with CAD (06/29/2013 10:27 AM EST) Anatomical Region Laterality Modality Breast Bilateral Mammography Specimen (Source) Anatomical Collection Method Collection Time Re ceived Time Location / / Volume Laterality 06/29/2013 10:27 AM EST Narrative 06/30/2013 1:08 PM EST BILATERAL MAMMOGRAPHY ?? REASON FOR EXAM: Screening ?? TECHNIQUE: Cranio-caudal (CC) and mediol ateral oblique (MLO) views of both breasts obtained with direct digital cap ture. The exam was evaluated by CAD Version 8.3.17. ?? FINDINGS: This is a negative mammogram ( ACR Category 1). There is a stable fibroglandular pattern without significa nt change as compared to prior studies. There is no mammographic evidence of can cer. ? The breasts are predominantly fatty. ? There are post-surgical changes in both breasts. ?? A BB was placed over a patient indicated palpable area of concern. Fatty tissue only seen in this area on the routine vi ews. Subsequent office not of Ailin Benedict on the same day indicates no palp able masses. ? CONCLUSION ?? This is a NEGATIVE mammogram (ACR Catego ry 1). Routine screening mammography is recommended with the frequency dependent on the patient's age and breast cancer risk factors. ?? A letter has been sent to this patient [facility]. Procedure Note Kaylee Lopez MD - 06/30/2013 BILATERAL MAMMOGRAPHY REASON FOR EXAM: Screening TECHNIQUE: Cranio-caudal (CC) and mediol ateral oblique (MLO) views of both breasts obtained with direct digital cap ture. The exam was evaluated by CAD Version 8.3.17. FINDINGS: This is a negative mammogram ( ACR Category 1). There is a stable fibroglandular pattern without significa nt change as compared to prior studies. There is no mammographic evidence of can cer. The breasts are predominantly fatty. There are post-surgical changes in both breasts. A BB was placed over a patient indicated palpable area of concern. Fatty tissue only seen in this area on the routine vi ews. Subsequent office not of Ailin Benedict on the same day indicates no palp able masses. CONCLUSION This is a NEGATIVE mammogram (ACR Catego ry 1). Routine screening mammography is recommended with the frequency dependent on the patient's age and breast cancer risk factors. A letter has been sent to this patient b [facility]. Leonardo Campbell MD IMG MAMMO ORDERABLES documented in this encounter Visit Diagnoses Diagnosis Infiltrating ductal carcinoma of breast Malignant neoplasm of breast (female), u nspecified site documented in this encounter Care Teams Field Cane Scaler Helper Relationship Specialty Start Date End Date Michela Stevenson APRN PCP - General 04/29/10 06/07/16 documented as of this encounter
--- OUTSIDE RECORDS SUMMARY | 2022-05-06 08:19 | XMS_ITS | Encounter Summary ---
:1960 Author Organization [facility] [place] [address] Care Team Providers Name Role Phone Michela Stevenson APRN Primary Care Provider Encounter Details Date Type Department Care Team Description 04/06/2014 Orders Only [facility] cancer, right [facility] [place] (Primary Dx) [address] [place] [id number] [phone] Social History Tobacco Use Types Packs/Day Years [...] this encounter Visit Diagnoses Diagnosis Breast cancer, right - Primary Malignant neoplasm of breast (female), u nspecified site documented in this encounter Care Teams Optical Goods Drill Operator Relationship Specialty Start Date End Date Michela Stevenson APRN PCP - General 04/29/10 06/07/16 documented as of this encounter
--- OUTSIDE RECORDS SUMMARY | 2022-05-06 08:19 | XMS_ITS | Encounter Summary ---
:1960 Author Organization [facility] [place] [address] Care Team Providers Name Role Phone Michela Stevenson [place] Primary Care Provider Reason for Visit Reason Comments Radiation Follow-up breast cancer Encounter Details Date Type Department Care Team Description 08/31/2013 Follow-Up Radiation Oncology at [facility], Nikita sea; [facility] Radiation effect; [address] Arteriovenous malformation (AVM) [place], [place] RADIATION ONCOL OGY [address] [place], [place] [phone] (Wo rk) Social History Tobacco Use Types [...] Sign Reading Time Taken Comments Blood Pressure 118/81 08/31/2013 2:00 PM 111 83 when s tanding EDT Pulse 133 08/31/2013 2:00 PM 140 when donny ding EDT Temperature 36.9 ??C (98.4 ??F) 08/31/2013 2:00 PM EDT Respiratory Rate 22 08/31/2013 2:00 PM EDT Oxygen Saturation 99% 08/31/2013 2:00 PM EDT Inhaled Oxygen - - Concentration Weight 96.2 kg (212 lb) 08/31/2013 2:00 PM EDT Height - - Body Mass Index 37.55 07/19/2013 10:41 AM EST documented in this encounter Progress Notes [facility] Romano, [employer] - 08/31/2013 2:16 PM EDT Subjective: Patient ID: Shraddha Chavez is a 53 y.o. female who was treated for breast cancer. She is in clinic per her request for symptom management. HPI Right breast cancer: stage I, pT1C [...] treatment: 01/22/2010 through 03/10/2010. Total fractions: 33 --patient has had a survivor care plan 12/31/2010--see [facility] scanned document. 2. AVM [...] chronic 724.5, 338.29 ??? Seborrheic keratosis 702.19 Allergies Allergen Reactions ??? Latex Itching and [...] Antibiotics) Hives ??? Tramadol Nausea And Vomiting Current Outpatient Prescriptions on File Prior to Visit Medication Sig Dispense Refill ??? tamoxifen (NOLVADEX) 20 mg tablet take 1 tablet by mouth once daily 30 tablet 12 ??? b complex vitamins capsule Take 1 capsule by mouth daily. 90 capsule 3 ??? dexlansoprazole (DEXILANT) 60 mg CpDM Take 60 mg by mouth daily. ??? loratadine (CLARITIN) 10 mg tablet Take 1 tablet by mouth daily. 30 tablet 1 ??? ondansetron (ZOFRAN) 8 mg tablet Take 1 tablet by mouth every 8 hours as needed for Nausea. 20 tablet 3 ??? aspirin 325 mg tablet Take 325 mg by mouth daily. Advance Directive: On file Interim History: Shraddha asked to be seen in clinic today. She is accompanied by her sister. She reports intermittent nausea, pressure--not headache--involving her head, and a rash under her right breast as well diffusely on other parts of her body since starting Mobic for her back pain. Since she was last seen in clinic Michela was seen by neurology at [facility] and had an occipital nerve block to treat her chronic headaches. She also has had a screening mammogram which was negative. The Rx for her back pain was given to her by her PCP to treat her low back pain. Her PCP had recommended PT but Michela indicated that she does not have money to pay for gas to go back and forth for PT. She reports stress due to financial problems. She has no breast complaints other than mild tenderness of the right breast. She has no lumps/masses. Patient denies persistent cough, or shortness of breath. She denies skeletal pain other than her chronic low back pain. Patient had an episode of nausea during visit. She has not been taking her ondansetron. Review of Systems Constitutional: Negative. Negative for fever, chills, activity change, appetite change, fatigue and unexpected weight change. HENT: Negative. Eyes: Negative. Respiratory: Positive for shortness of breath. Negative for cough and chest tightness. One recent episode of severe SOB that resolved with rest. Continues to smoke intermittently Cardiovascular: Negative. Negative for chest pain, palpitations and leg swelling. Gastrointestinal: Negative. Negative for nausea, vomiting, constipation and abdominal distention. Genitourinary: Negative. Musculoskeletal: Positive for back pain. Back pain--8--10 all the time PT was planned but could not afford transportation Skin: Positive for rash. Neurological: Negative. Negative for dizziness, tremors, facial asymmetry, weakness and headaches. Hematological: Negative. Psychiatric/Behavioral: Negative. Financial stressors Filed Vitals: 08/31/13 1400 BP: 118/81 Pulse: 133 Temp: 36.9 ??C (98.4 ??F) TempSrc: Oral Resp: 22 Weight: 96.163 kg (212 lb) SpO2: 99% KPS: 90 Objective: Physical Exam Vitals reviewed. Constitutional: She is oriented to person, place, and time. She appears well- developed and well-nourished. No distress. HENT: Head: Normocephalic and atraumatic. Mouth/Throat: Oropharynx is clear and moist. No oropharyngeal exudate. Symmetric rise of uvula/palate Tongue midline Eyes: Conjunctivae normal and EOM are normal. Pupils are equal, round, and reactive to light. No scleral icterus. Neck: Normal range of motion. Neck supple. Cardiovascular: Regular rhythm and normal heart sounds. Tachycardia present. Exam reveals no gallop and no friction rub. No murmur heard. Pulmonary/Chest: Effort normal and breath sounds normal. No respiratory distress. She has no wheezes. She has no rales. She exhibits no tenderness. Abdominal: Soft. Bowel sounds are normal. She exhibits no distension. There is no tenderness. Musculoskeletal: Normal range of motion. She exhibits no edema and no tenderness. [...] normal. Skin: Skin is warm and dry. Rash noted. She is not diaphoretic. No erythema. No pallor. Fungal rash under right breast Scattered areas of erythema arms Psychiatric: She has a normal mood and affect. Her behavior is normal. Judgment and thought content normal. Breast__X__ no nipple discharge, no dryness, no erythema, no masses, no lymphedema breast or arm, increased density along surgical scar Treated site: __X__Right or ____Left, ___X_Breast or Chest wall Telangectasias: ___X_None, ____Few; Moderate; Many and confluent Hypopigmentation: __X__None; ____Slight or localized; ____Marked or generalized Hyperpigmentation: _X___None; ____Slight or localized; ____Marked or generalized Fibrosis: None; __X___Increased density; ____Marked increased density + retraction; ____ Very marked Dry skin: __X__None; ____Asymptomatic; symptomatic; Interferes with ADL Cosmetic Result: Excellent; __X___Good;____ Fair; ____Poor Comprehensive Breast Program Surgery Follow Up Note Range of motion of surgical arm complete Lymphedema present No Cosmesis-surgeon reported Cosmesis-patient reported Good Good Local or regional recurrence No Contralateral cancer present No Distant recurrence present No Date of last follow up 05/25/2013 [facility] ROMANO, [employer] 08/31/2013 06/29/2013--BILATERAL MAMMOGRAPHY REASON FOR EXAM: Screening TECHNIQUE: Cranio-caudal (CC) and mediolateral oblique (MLO) views of both breasts obtained with direct digital capture. The exam was evaluated by CAD Version 8.3.17. FINDINGS: This is a negative mammogram (ACR Category 1). There is a stable fibroglandular pattern without significant change as compared to prior studies. There is no mammographic evidence of cancer. The breasts are predominantly fatty. There are post-surgical changes in both breasts. A BB was placed over a patient indicated palpable area of concern. Fatty tissue only seen in this area on the routineviews. Subsequent office not of Ailin Benedict on the same day indicates no palpable masses. CONCLUSION This is a NEGATIVE mammogram (ACR Category 1). Routine screening mammography is recommended with thefrequency dependent on the patient's age and breast cancer risk factors. Assessment and Plan: Right breast cancer: stage I, pT1C pN0 M0 IDC w/lobular extension, high gr, s/p R partial mastectomy, sentinel lymphadenectomy & B reduction mammoplasty, ERPR+; s/p adjuvant AC x 4 and radiation therapy which was completed on 03/10/2010. Ms Chavez is doing well with FARIDEH. She had a screening mammogram in June 2013 which was negative. Tachycardia: Patient's heart rate was 133 at rest and 140 with standing. No associated symptoms other than an episode of severe shortness of breath some time ago. She was treated with doxorubicin as part of her chemotherapy and had 500 mg (234 mg/m2) with a risk of cardiac toxicity of 1-2%. Radiation therapy was to her right breast only so cardiac toxicity should not be present. Findings will be communicated to patient's PCP and patient has made arrangements to be seen tomorrow. Michela does not have any clinical findings suggestive of CHF. AVM: Patient is also followed by radiation oncology due to treatment for AVM: She does report nauseabut has not been taking her zofran. She needs a new Rx for this. She is due for her next brain MRI in October and we will schedule this in [place]. documented in this encounter Plan of Treatment Not on filedocumented as of this encounter Results MRI brain with/WO contrast (10/18/2013 3:45 PM EDT) Anatomical Region Laterality Modality Head Magnetic Resonance Specimen (Source) Anatomical Collection Method Collection Time Re ceived Time Location / / Volume Laterality 10/18/2013 3:45 PM EDT Narrative 10/18/2013 5:06 PM EDT Examination MRA [place] without contrast ?? MR BRAIN W/WO CONTRAST Clinical History Treated with radiation therapy for AVM Assess response to treatment Comparison 04/21/2013, 02/14/2013. Technique MR of the brain performed prior to and f ollowing intravenous administration of 9.6 mL Gadavist. ??MRA [place] per formed without the use of [...] be different from the original. Examination MRA [place] without contrast MR BRAIN W/WO CONTRAST Clinical History Treated with radiation therapy for AVM Assess response to treatment Comparison 04/21/2013, 02/14/2013. Technique MR of the brain performed prior to and f ollowing intravenous administration of 9.6 mL Gadavist. MRA [place] perfo rmed without the use of [...] evidence of recurrent or residual arteriovenous malformation. 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
--- OUTSIDE RECORDS SUMMARY | 2022-05-06 08:19 | XMS_ITS | Encounter Summary ---
:1960 Author Organization [facility] [place] [address] Care Team Providers Name Role Phone Michela Stevenson [place] Primary Care Provider Encounter Details Date Type Department Care Team Description 10/18/2013 Orders Only Radiation Oncology at Domonique James Art eriovenous [facility] [place] malformation (AVM) [address] (Primary Dx) [facility] [place] [phone] Social History Tobacco Use Types Packs/Day Years Used Date Smoking Tobacco: Light Cigarettes 0.5 37 Last attempted to quit: Smoker 07/18/2013 Alcohol Use Standard Drinks/Week Comments Yes 0 (1 standard drink = 0.6 oz pure alcoho l) very rare Sex Assigned at Date Recorded Not on file documented as of this encounter Plan of Treatment Not on filedocumented as of this encounter Results (ABNORMAL) Creatinine (10/18/2013 1:01 PM EDT) athologist Signature Creatinine 1.05 0.70 - 1.20 CERNER mg/dL [facility] Comment: Please note that the pediatric reference intervals supplied above were not validated at [facility]. Results from pediatri c patients should be interpreted in conjunction to the patient's age, height and muscle mass. Estimated GFR 55 (L) >=60 TEOFILO DAVIDSONJOHANNACorneliusJo Rikki Comment: This estimated GFR (eGFR) value was calc ulated using the MDRD equation which has been validated on patients between t he ages of 18 and 70. The MDRD should not be used to assess kidney function in patients < 18 years of age or in patients with extremes of body mass, or in patients with acute kidney failure. This value should be multiplied by 1.2 f or patients. For further information please copy and past e the following links into your internet browser. http://www.nkdep.nih.gov/lab-evaluation. 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
--- OUTSIDE RECORDS SUMMARY | 2022-05-06 08:19 | XMS_ITS | Encounter Summary ---
:1960 Author Organization [facility] [place] [address] Care Team Providers Name Role Phone Michela Stevenson [place] Primary Care Provider Reason for Visit Reason Comments Medication Refill Encounter Details Date Type Department Care Team Description 08/01/2013 Refill Hematology Oncology at Bang Lugo MD Malignant neoplasm of [address] [place] female breast [address] [place] [address] (Primary Dx) [place], [place] [id number] [phone] Social History Tobacco Use Types Packs/Day Years Used Date Smoking Tobacco: Former Cigarettes 0.5 37 Quit : 07/18/2013 Alcohol Use Standard Drinks/Week Comments Yes 0 (1 standard drink = 0.6 oz pure alcoho l) very rare Sex Assigned at Date Recorded Not on file documented as of this encounter Miscellaneous Notes Telephone Encounter - Jessica Neil RN - 08/01/2013 1:21 PM EST Took Femara (letrozole) 03/05/2010 to 07/05/12. Because of arthritis like symptoms stopped Femara 07/05/12 and started Tamoxifen. documented in this encounter Plan of Treatment Not on filedocumented as of this encounter Visit Diagnoses Diagnosis Malignant neoplasm of right female breas t - Primary Malignant neoplasm of breast (female), u nspecified site documented in this encounter Care Teams Senior Systems Engineer Relationship Specialty Start Date End Date Michela Stevenson APRN PCP - General 04/29/10 06/07/16 documented as of this encounter
--- OUTSIDE RECORDS SUMMARY | 2022-05-06 08:19 | XMS_ITS | Encounter Summary ---
:1960 Author Organization [facility] [place] [address] Care Team Providers Name Role Phone Zenaida Gupta APRN Primary Care Provider Reason for Visit Reason Comments Medication Refill Encounter Details Date Type Department Care Team Description 04/05/2014 Refill Radiation Oncology at [facility], denise Brandt APRN [address] RADIATION ONCOLOGY [place], [place] [phone] [place], [place] [phone] (Wo rk) Social History Tobacco Use Types [...] on filedocumented in this encounter Care Teams Community Program Assistant Relationship Specialty Start Date End Date Zenaida Gupta APRN PCP - General Family Medicine 01/17/[address] [facility], [place] [id number] documented as of this encounter
--- OUTSIDE RECORDS SUMMARY | 2022-05-06 08:19 | XMS_ITS | Encounter Summary ---
:1960 Author Organization [facility] [place] [address] Care Team Providers Name Role Phone Michela Stevenson [place] Primary Care Provider Reason for Visit Reason Comments Back Pain Bilateral Hip Pain Encounter Details Date Type Department Care Team Description 04/13/2013 Office Visit Sp[facility] at [facility] Back pai n, chronic [place] MD (Primary Dx) [facility], [place] [facility] [address] [place] [address] [phone] Social History Tobacco Use Types Packs/Day Years [...] - Inhaled Oxygen Concentration - - Weight 98.4 kg (217 lb) 04/13/2013 8:56 AM EST Height 160 cm (5' 3) 04/13/2013 8:56 AM EST Body Mass Index 38.44 04/13/2013 8:56 AM EST documented in this encounter Progress Notes [facility] Fernandez MD - 04/13/2013 9:40 AM EST Ms. Chavez is a 53-year-old woman seen today in the spine center consultation from Michela Stevenson. The patient is seen and evaluated for chronic low back pain, some pain in the left buttock, and proximal thigh, then some numbness from the knee to the medial plantar aspect of the left foot. Symptoms have been present for at least six years. She has had multiple treatments including injections, medicines, and therapies, without help. She does note some improvement on Advil. She does have some pain at night. Right leg is asymptomatic. Low back is more problematic than the left leg. Past medical history is notable for diagnosis of breast cancer, arteriovenous malformation treated with radiation, history of bilateral total knee replacement, chronic back pain, and the possibility of fibromyalgia per the pain clinic note in 2009. Height is 5 feet 3 inches. Weight is 270 pounds. Body mass index is 38.45. She continues to smoke a half a pack of cigarettes per day. PHYSICAL EXAMINATION: This is a pleasant, obese woman. She moves slow but normally about the office. Her gait is normal. She could toe walk, but has difficulty bilaterally with heel walking due to pain. Her pelvis is level. Her spine is straight. She has pain to palpation throughout her lower cervical, thoracic, lumbar, and sacral region to palpation. She also has pain in the left sciatic notch. She has pain to bilateral pelvic rotation. Her distal motor exam and sensory exam are normal, and reflexes are absent at the knees and ankles. She has painful reactions to most of the examination including the reflexes and palpation of the musculature. IMAGING: Her MRI from 11/16/2012 is reviewed demonstrating multilevel disc dehydration, some mild foraminal narrowing on the left at L5-S1, mild to moderate narrowing at the L4-5 lateral recess. None of these findings are really specific for her complaints, although the absence of other pain responses, they may be attributable to her symptoms, but she actually hurts at multiple locations which makes the diagnosis a bit more confusing and her back pain is more bothersome than her leg which also makes it more confusing. All in all, I do not think this patient has any indication for surgical intervention. We did discuss a referral back to the pain clinic as an option for evaluation and treatment, and I will leave this up to her primary care provider to consider this. She will otherwise continue with her current management. Spine Center Response Trends Patient-reported scores: myD-H Spine Questionnaire responses 11/14/2012 11/28/2012 04/13/2013 VR36 - Physical Function (Range: 0-100) 24.1 - 15.3 VR36 - Bodily Pain (Range: 0-100) 33.7 - 28.4 VR36 - PCS (Range: 0-100) 34.6 - 29.1 VR36 - MCS (Range: 0-100) 40.7 - 43.2 Oswestry Disability Index (Range: 0-100) 18 42 46 Neck Disability Index (Range: 0-100) - - 48 (Moderate disability) documented in this encounter Procedure Notes Provider, Scanning - 04/24/2013 1:09 PM ESTAssociated Order(s): SCAN DOC: MRI/MRA documented in this encounter Plan of Treatment Not on filedocumented as of this encounter Procedures Procedure Name Priority Date/Time Associated Diagnosis Comme nts MRI/MRA SCAN 04/24/2013 1:09 PM Results f or this EST procedure are i n the results section . documented in this encounter Results SCAN DOC: MRI/MRA (04/24/2013 1:09 PM EST) Anatomical Region Laterality Modality Other Narrative 04/24/2013 3:38 PM EST Procedure Note Provider, Scanning - 04/24/2013 1:09 PM EST Scanning Provider MEDIA MGR SCAN EXT ORDR/RSLT documented in this encounter Visit Diagnoses Diagnosis Back pain, chronic - Primary Backache, unspecified documented in this encounter Care Teams Biztalk Developer Relationship Specialty Start Date End Date Michela Stevenson APRN PCP - General 04/29/10 06/07/16 documented as of this encounter
--- OUTSIDE RECORDS SUMMARY | 2022-05-06 08:19 | XMS_ITS | Encounter Summary ---
:1960 Author Organization [facility] Address [address] [place] [address] Care Team Providers Name Role Phone Michela Stevenson [place] Primary Care Provider Reason for Visit Reason Comments Follow-up Encounter Details Date Type Department Care Team Description 06/29/2013 Follow-Up General Surgery at Stephanie Benedict M alignant neoplasm of [facility] EMPLOYEE ADVISER right female breast [facility] (Pr imary Dx) [place] [address] GENERAL SURGERY [phone] [place] [id number] (Wo rk) Social History Tobacco Use Types Packs/Day Years Used Date Smoking Tobacco: Every Day Cigarettes 0.5 37 Smokeless Tobacco: Never Alcohol Use Standard Drinks/Week Comments Yes 0 (1 standard drink = 0.6 oz pure alcoho l) very rare Sex Assigned at Date Recorded Not on file documented as of this encounter Progress Notes Stephanie Benedict APRN - 06/29/2013 10:52 AM EST Shraddha is a 53 y[address] Pt of Dr Barnhart who returns for interval surgical eval. She seen by Dr Lugo last week.Normal exam. Mammo earlier today is pending. By way of history, she initially presented in 09/2009 after a routine screening mammography performed08/14. This revealed a spiculated mass in the deep, central right breast with associated pleomorphic calcifications. Mass was approximately 2.3cm. U/S confirmed a solid mass with smaller dimensions 1.4cm). 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 MRI was then performed for surgical planning. This revealed the known mass as well as a second lesion (category III) in the retroareolar right breast. No left sided or axillary disease was identified. U/S biopsy of the second lesion was benign. Michela opted for BCT with simultaneous breast reduction b/l. Pathology revealed: A 1.5-cm invasive ductal carcinoma with lobular features, right breastTumor was ER/SD positive, HER-2/viktoria negative. One lymph node was microscopically positive with foci less than 0.2 mm. The other twonodes were negative She was treated by Dr. Lugo with 4 cycles of AC followed by whole breast xrt.She is on tamoxifen tolerating it well. Physical Examination: In general, the patient is a well-developed and well- nourished female in no apparent distress. She is oriented times three. Lymphatics: No evidence of cervical, supraclavicular, or axillary lymphadenopathy. Breast: The breasts are slightly asymmetrical with R mildly larger than the left. No skin changes. There are no obvious palpable masses noted in either breast. The upper extremities are without evidence of lymphedema. Good range of motion of both shoulders. No nipple discharge or crusting noted on either breast. Comprehensive Breast Program Surgery Follow Up Note Range of motion of surgical arm complete Lymphedema present No Cosmesis-surgeon reported Cosmesis-patient reported Excellent Excellent Local or regional recurrence No Contralateral cancer present No Distant recurrence present No Date of last follow up 06/29/13 Assessment: 53 yo female with clinical stage IIA IDC of the right breast. Doing well s/p breast conservation therapy with partial mastectomy, sentinel node excision, AC x4 and xrt. Normal exam. Plan follow up 06/2014 with a bilateral mammogram at that time. Shraddha will call me before then with any new concerns. documented in this encounter Plan of Treatment Not on filedocumented as of this encounter Visit Diagnoses Diagnosis Malignant neoplasm of right female breas t - Primary Malignant neoplasm of breast (female), u nspecified site documented in this encounter Care Teams Ceo And Founder Relationship Specialty Start Date End Date Michela Stevenson APRN PCP - General 04/29/10 06/07/16 documented as of this encounter
--- OUTSIDE RECORDS SUMMARY | 2022-05-06 08:19 | XMS_ITS | Encounter Summary ---
:1960 Author Organization [facility] [place] [address] Care Team Providers Name Role Phone Michela Stevenson APRN Primary Care Provider Encounter Details Date Type Department Care Team Description 04/19/2013 Orders Only [facility] [place] S[place]P mastectomy; [address] Breast cancer [address] [place] [address] [place] [address] [phone] (Wo rk) Social History Tobacco Use Types [...] as of this encounter Visit Diagnoses Diagnosis S/P mastectomy Acquired absence of breast and nipple Breast cancer Malignant neoplasm of breast (female), u nspecified site documented in this encounter Care Teams Cans Vacuum Tester Relationship Specialty Start Date End Date Michela Stevenson APRN PCP - General 04/29/10 06/07/16 documented as of this encounter
--- OUTSIDE RECORDS SUMMARY | 2022-05-06 08:19 | XMS_ITS | Encounter Summary ---
:1960 Author Organization [facility] [place] [address] Care Team Providers Name Role Phone Michela Stevenson [place] Primary Care Provider Encounter Details Date Type Department Care Team Description 04/28/2013 Telephone Radiation Oncology at Domonique Pratt APRN [address] [place] [address] [place], [place] [phone] (Wo rk) Social History Tobacco Use Types Packs/Day Years Used Date Smoking Tobacco: Every Day Cigarettes 0.5 37 Smokeless Tobacco: Never Alcohol Use Standard Drinks/Week Comments Yes 0 (1 standard drink = 0.6 oz pure alcoho l) very rare Sex Assigned at Date Recorded Not on file documented as of this encounter Miscellaneous Notes Telephone Encounter - Domonique James APRN - 04/28/2013 4:21 PM EST Consult with Dr Tadeo due to patient's complaint on ongoing head pressure and nausea. Her reviewed her most recent MRI compared to her February study and agrees that it is stable and possible slightly improved. He agrees that a referral to neurology again may be of help. Call to patient regarding the above. She was seen by neurology last November and was to be started on Topamax, She developed a rash so stopped the medication. She was supposed to return to neuro in February but did not. She is agreeable to being seen again in June. documented in this encounter Plan of Treatment Not on filedocumented as of this encounter Visit Diagnoses Not on filedocumented in this encounter Care Teams Rustic Fence Builder Relationship Specialty Start Date End Date Michela Stevenson APRN PCP - General 04/29/10 06/07/16 documented as of this encounter
--- OUTSIDE RECORDS SUMMARY | 2022-05-06 08:19 | XMS_ITS | Encounter Summary ---
:1960 [place] [address] Care Team Providers Name Role Phone Michela Stevenson Jaden FIGUEROA Primary Care Provider Reason for Visit Reason Comments Radiation Follow-up AVM Encounter Details Date Type Department Care Team Description 02/14/2013 Follow-Up Radiation Oncology [facility] [place] (Primary Dx) [facility] [place] [address] [place] [address] [place] [address] [place] [address] Social History Tobacco Use Types Packs/Day [...] Sign Reading Time Taken Comments Blood Pressure 123/86 02/14/2013 1:48 PM EDT Pulse 88 02/14/2013 1:48 PM EDT Temperature 37.2 ??C (99 ??F) 02/14/2013 1:48 PM EDT Respiratory Rate 20 02/14/2013 1:48 PM EDT Oxygen Saturation 98% 02/14/2013 1:48 PM EDT room ai r Inhaled Oxygen Concentration - - Weight 98 kg (216 lb) 02/14/2013 1:48 PM EDT Height - - Body Mass Index 38.27 01/05/2013 8:56 AM EDT documented in this encounter Progress Notes Domonique James, TAILER OFF - 02/14/2013 2:13 PM EDT Identification Shraddha Chavez is a 53 y.o. 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 Patient is being seen following post hyperbaricoxygen therapy brain MRI for clinical evaluation and to review MRI findings. HPI Starting in early January 2010, Mrs Chavez [...] headaches spurred a brain MRI performed at [facility]. This demonstrated an area of numerous [...] stereotactic radiosurgery treatment on August 12, 2010. Problem List: 1. Right breast cancer: stage I, pT1C pN0 M0 IDC w/lobular extension, high gr, s/p R partial mastectomy, sentinel lymphadenectomy & B reduction mammoplasty, ERPR+; s/p adjuvant AC x 4 and radiationtherapy which was completed on 03/10/2010. Radiation therapy detail: Target location: Right breast Total dose: 6100 cGy Fraction dose; 180 cGy for 25 fractions followed by 200 cGy boost to surgical bed for 8 fractions. Dates of treatment: 01/22/2010 through 03/10/2010. Total fractions: 33 2. 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 Patient has complains of nausea, abnormal taste sensation raising suspicion for complex partial seizure from left temporal focus. On examination patient has occipital nerve tenderness severe on left side. Previous imaging with MRI brain showed stable AVM reduced in size. impression: Headaches. occipital neuraligia. Radiation vasculopathy Procedure Note Procedure: Bilateral Greater Occipital Nerve Blocks ----04/01/2012: Dr Ward--eye exam. Normal ophthalmic exam. Her visual kiran vary and show ring scotomas with a JD EDWARDS DEVELOPER pattern. Reassurance given about her exam findings. New Rx given. 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 topamax 25mg QHS x 2-3 weeks, if tolerated increase to 50mg qhs with plan to continue zofran prn nausea ---11/30/2012--patient completed 33 of 40 planned hyperbaric treatments. ---02/14/2013--MRI/MRA brain--Evolving post therapy changes, improved from the prior study. In particular, the degree of surrounding vasogenic edema is better. Negative MRA. 3. Allergies --multiple drugs 4. GERD 5. Arthritis 6. Smoking addiction. Surgical history: 1. Partial mastectomy and bilateral breast reduction 2. Hysterectomy 3. Carpal tunnel release 4. Rotator cuff repair. 5. H/O total knee replacement Allergies Allergen Reactions ??? Latex Itching and [...] Prescriptions on File Prior to Visit Medication Status Sig Dispense Refill ??? dexlansoprazole (DEXILANT) 60 mg CpDM Active Take 60 mg by mouth daily. ??? ondansetron (ZOFRAN) 8 mg tablet Active Take 1 tablet by mouth every 8 hours as needed for Nausea. 20 tablet 3 ??? aspirin 325 mg tablet Active Take 325 mg by mouth daily. ??? tamoxifen (NOLVADEX) 20 mg tablet Active Take 1 tablet by mouth daily. 30 tablet 12 ??? loratadine (CLARITIN) 10 mg tablet Active Take 1 tablet by mouth daily. 30 tablet 1 ??? LORazepam (ATIVAN) 0.5 mg tablet Active Take 1 tablet by mouth every 6 hours as needed for Anxiety. 15 tablet 1 ??? vitamin E 400 unit capsule Discontinued Take 400 Units by mouth daily. ??? VITAMIN B COMPLEX ORAL Active Take 1 tablet by mouth daily. No current facility-administered medications on file prior to visit. Advance Directive: On file. Interval history: Shraddha is in clinic with her daughter Lisa and son in law Scott. She reports that she has ongoing intermittent headaches, pressure to the left side of her head with associated nausea. She has been using her zofran every morning. She has had no vomiting. 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 She was treated with an occipital nerve block which gave her short term relief. She did not tolerate medications indomethacin PRN and nortriptiline for breakthrough episodes and discontinued these. She also cancelled follow up at [facility] inneurology and asked to be referred to a provider closer to her home.. She was seen at [facility] x2 then did not return and was seen again at [facility] by neurology on 11/23/[address] Jay Saenz. As noted by Dr Saenz, Shraddha has previously tried verapamil which caused nausea, dizziness, and hy potension then stopped. She has also tried dexamethasone, trental, hydroxyzine, indomethacin, and nortriptyline. ONB has been documented to relieve CERVANTES but patient does not remember. He started her on Topamax which she is not using. Shraddha is smoking again and we discussed smoking cessation. She had tried nicotine patches. She is willing to be referred for smoking cessation counseling. Her daughter also indicated that Otis nutritional habits are very poor. She has GERD but often skips meals. Shraddha is willing to keep a food diary for a week and to meet with a business development specialist. Review of Systems Constitutional: Negative. Negative for fever, chills, diaphoresis, activity change, appetite change,fatigue and unexpected weight change. Eyes: Negative. Respiratory: Negative. Negative for cough and shortness of breath. Cardiovascular: Negative. Gastrointestinal: Positive for nausea. Negative for vomiting, diarrhea and constipation. Genitourinary: Negative. Musculoskeletal: Negative for gait problem. Skin: Negative. Neurological: Positive for headaches. Negative for speech difficulty and weakness. See interim history Headache described as a pressure involving the frontal area mostly on the left Hematological: Negative. Psychiatric/Behavioral: Negative for confusion and sleep disturbance. The patient is nervous/anxious. Filed Vitals: 02/14/13 1348 BP: 123/86 Pulse: 88 Temp: 37.2 ??C (99 ??F) TempSrc: Oral Resp: 20 Weight: 97.977 kg (216 lb) SpO2: 98% KPS: 100 Physical Exam Vitals reviewed. Constitutional: She is oriented to person, place, and time. She appears well- developed and well-nourished. No distress. HENT: Head: Normocephalic and atraumatic. Mouth/Throat: Oropharynx is clear and moist. No oropharyngeal exudate. Eyes: Conjunctivae normal and EOM are normal. Pupils are equal, round, and reactive to light. No scleral icterus. Neck: Neck supple. Cardiovascular: Normal rate, regular rhythm and normal heart sounds. Pulmonary/Chest: Effort normal and breath sounds normal. No respiratory distress. She has no wheezes. She has no rales. She exhibits no tenderness. Lymphadenopathy: Head (right side): No submental, no submandibular, no tonsillar, no preauricular, no posterior auricular and no occipital adenopathy present. Head (left side): No submental, no submandibular, no tonsillar, no preauricular, no posterior auricular and no occipital adenopathy present. She has no cervical adenopathy. Neurological: She is alert and oriented to person, place, and time. She has normal strength. She is not disoriented. She displays no atrophy and no tremor. No cranial nerve deficit or sensory deficit. She exhibits normal muscle tone. She displays a negative Romberg sign. She displays no seizure activity. Coordination and gait normal. Normal finger to nose Normal tandem walking. Able to stand on one foot Skin: Skin is warm and dry. No rash noted. She is not diaphoretic. No cyanosis or erythema. No pallor. Psychiatric: Her speech is normal and behavior is normal. Judgment and thought content normal. Her mood appears anxious. Cognition and memory are normal. Pre and postcontrast MRI of the brain. Noncontrast MRA of the head. Clinical History H/O ARTERIOVENOUS MALFORMATION BRAIN Comparison Comparison is made to the prior MRI performed 08/15/2012. Technique Pre and post contrast MR imaging of the brain. 10 mL of Gadavist was given IV without difficulty. In addition, noncontrast MRA of the brain was performed. Findings Again noted are the post therapy changes in the medial left temporal lobe with extensive zone of FLAIR signal change in volume in the left temporal lobe. There continues to be a zone of enhancement in the mesial left temporal region and inferior left frontal region. The enhancement is similar or minimally improved. The edema is significantly improved. MRA of the brain demonstrates no evidence of large feeding arteries. Impression Evolving post therapy changes, improved from the prior study. In particular, the degree of surrounding vasogenic edema is better. Negative MRA. Asessment/Plans AVM/headache: Shraddha's symptoms persist ie headache, nausea. Today's MRI demonstrates improvement from previous study six months ago. She is in clinic with her daughter and son in law today and we reviewed her MRI. Shraddha asks if the area of radiation necrosis can surgically be removed. We discussed that this would not be advisable. She does not have a tumor and surgery involves high risk and given that her MRI is improving this would not be advisable. We will discuss further with Dr Tadeo. Patient's symptoms may have multiple causes. She has not complied with the recommendations of the headache clinic. Support was provided to Shraddha who is very anxious. Shraddha is smoking again and we discussed smoking cessation. She had tried nicotine patches. She is willing to be referred for smoking cessation counseling. Her daughter also indicated that Otis nutritional habits are very poor. She has GERD but often skips meals. Shraddha is willing to keep a food diary for a week and to meet with a business development specialist since this may also impact her headaches. Patient was seen in follow-up for a total of 20 minutes, with 15 minutes of that time spent discussing his current clinical condition, reviewing medication management, counseling regarding symptom management and planning further management. 02/15/2013 Addendum: Consultation with Dr Tadeo regarding patient's question related to surgical excision of radiation necrosis. He agrees that there would be no benefit to patient to do this and shewould have significant risks due to craniotomy. We will see patient again in three months for follow up and arrange for a repeat MRI in six months. documented in this encounter Plan of Treatment Not on filedocumented as of this encounter Visit Diagnoses Diagnosis Breast CA - Primary Malignant neoplasm of breast (female), u nspecified site documented in this encounter Care Teams Material Flow Engineer Relationship Specialty Start Date End Date Michela Stevenson APRN PCP - General 04/29/10 06/07/16 documented as of this encounter
--- OUTSIDE RECORDS SUMMARY | 2022-05-06 08:19 | XMS_ITS | Encounter Summary ---
:1960 Author Organization [facility] [place] [address] Care Team Providers Name Role Phone Michela Stevenson [place] Primary Care Provider Encounter Details Date Type Department Care Team Description 01/09/2013 Hospital Encounter Mammography at [facility] [place] [address] Social History Tobacco Use Types Packs/Day [...] Dispensed Refills Start Date End Date prochlorperazine (COMPAZINE) Take 10 mg by 0 01/0608/19/2018 10 mg Tablet mouth. LORazepam (ATIVAN) 0.5 mg Take 1 tablet by 15 tablet 1 12/0504/20/2013 tabletIndications: Anxiety mouth every 6 hours as needed for Anxiety. vitamin E 400 unit capsule Take 400 Units by 0 02/14/2013 mouth daily. ondansetron (ZOFRAN) 8 mg Take 1 tablet [...] 30 tablet 1 12/14/2013 tablet mouth daily. VITAMIN B COMPLEX Take 1 tablet by 0 11/27/2010 0 02/14/2013 ORALIndications: Breast CA mouth daily. documented as of this encounter Progress Notes Provider, Scanning - 01/09/2013 4:33 PM EDT documented in this encounter Plan of Treatment Not on filedocumented as of this encounter Procedures Procedure Name Priority Date/Time Associated Diagnosis Comme nts MAMMO BREAST US Routine 01/09/2013 2:17 PM Malignant neoplasm Results for this LIMITED EDT of breast (female), procedur e are in unspecified site the results section. documented in this encounter Results Mammo breast US unilateral bilateral (01/09/2013 2:17 PM EDT) Anatomical Region Laterality Modality Breast N/A Mammography Specimen (Source) Anatomical Collection Method Collection Time Re ceived Time Location / / Volume Laterality 01/09/2013 2:17 PM EDT Impressions 01/11/2013 7:29 AM EDT IMPRESSION: This is a NEGATIVE Right breast mammogra m and ultrasound (BIRADS Category 1). There is no imaging abnormality to corre late with the areas of clinical concern in the Right breast (breast pain and pal pable areas); therefore, further management should be based on the streng th of the clinical findings. Findings discussed with the patient who concurs. Follow-up with the [facility] and the patient's primary care provider were discussed with the patient who concurs. Narrative 01/11/2013 7:29 AM EDT UNILATERAL RIGHT MAMMOGRAM AND RIGHT BREAST ULTRASOUND ON 01/09/13: CLINICAL INDICATION: Palpable inferior R ight breast / lower chest lumps and lateral Right breast pain for fourteen d ays. History of Right breast lumpectomy for breast cancer in 2009. Status-post b ilateral breast reduction in 09/14. At the time of today's exam the patient indicated the epicenter of the breast pain to be at 0800 in the Right breast, 8cm from the nipple. The multiple palpable lumps were located at the infer ior breast/ chest junction. TECHNIQUE: Right MLO (x2), CC and ML vie ws obtained with direct digital capture as well as a Right breast ultrasound. FINDINGS: This is a (BIRADS Category 1) NEGATIVE Right breast mammogram. There is an unremarkable fibroglandular patter n in the Right breast which is stable compared to prior studies. There is no e vidence of cancer. Specifically, no mammographic abnormality I seen in the l ower, outer and inferior Right breast to correspond to the area of clinical co ncern. Post-surgical change is seen in the Righ t breast. Clinical Right breast exam demonstrates post-surgical changes following lumpectomy and reduction. No discrete pa lpable nodule is detected. I do not feel a dominant mass in the Right breast . This is a (BIRADS Category 1) NEGATIVE ?Right breast ultrasound. There is no sonographic abnormality seen in the area s of clinical concern in the lower, outer and inferior Right breast at 0800, 8cm from the nipple. Post-surgical change is seen in the area of scar in th e inferior Right breast. Procedure Note Danni Flynn MD - 3 UNILATERAL RIGHT MAMMOGRAM AND RIGHT GILBERTO AST ULTRASOUND ON 01/09/13: CLINICAL INDICATION: Palpable inferior R ight breast / lower chest lumps and lateral Right breast pain for fourteen d ays. History of Right breast lumpectomy for breast cancer in 2009. Status-post b ilateral breast reduction in 09/14. At the time of today's exam the patient indicated the epicenter of the breast pain to be at 0800 in the Right breast, 8cm from the nipple. The multiple palpable lumps were located at the infer ior breast/ chest junction. TECHNIQUE: Right MLO (x2), CC and ML vie ws obtained with direct digital capture as well as a Right breast ultrasound. FINDINGS: This is a (BIRADS Category 1) NEGATIVE Right breast mammogram. There is an unremarkable fibroglandular patter n in the Right breast which is stable compared to prior studies. There is no e vidence of cancer. Specifically, no mammographic abnormality I seen in the l ower, outer and inferior Right breast to correspond to the area of clinical co ncern. Post-surgical change is seen in the Righ t breast. Clinical Right breast exam demonstrates post-surgical changes following lumpectomy and reduction. No discrete pa lpable nodule is detected. I do not feel a dominant mass in the Right breast . This is a (BIRADS Category 1) NEGATIVE R ight breast ultrasound. There is no sonographic abnormality seen in the area s of clinical concern in the lower, outer and inferior Right breast at 0800, 8cm from the nipple. Post-surgical change is seen in the area of scar in th e inferior Right breast. IMPRESSION IMPRESSION: This is a NEGATIVE Right breast mammogra m and ultrasound (BIRADS Category 1). There is no imaging abnormality to corre late with the areas of clinical concern in the Right breast (breast pain and pal pable areas); therefore, further management should be based on the streng th of the clinical findings. Findings discussed with the patient who concurs. Follow-up with the [facility] and the patient's primary care provider were discussed with the patient who concurs. Schuyler Lugo MD IMG MAMMO ORDERABLES documented in this encounter Visit Diagnoses Diagnosis Breast CA Malignant neoplasm of breast (female), u nspecified site documented in this encounter Care Teams Performance Solutions Specialist Relationship Specialty Start Date End Date Michela Stevenson APRN PCP - General 04/29/10 06/07/16 documented as of this encounter
--- OUTSIDE RECORDS SUMMARY | 2022-05-06 08:19 | XMS_ITS | Encounter Summary ---
:1960 Author Organization [facility] Address [address] [place] [address] Care Team Providers Name Role Phone Graham Michela Stanley APRN Primary Care Provider Encounter Details Date Type Department Care Team Description 03/02/2013 Unscheduled Hematology Oncology Elizabeth Hartman surveillance Encounter at [facility] MICHELE Stanley and counseling [address] (Primary Dx) [place] [address] Social History Tobacco Use Types [...] encounter Progress Notes Elizabeth Hartman RD - 03/02/2013 9:03 AM EDT [facility] Initial Dietitian Assessment Seen By: Elizabeth Hartman RD, LD Referred by: Domonique James APRN Reason for visit: Weight loss education & counseling Patient and diagnosis: Shraddha is a 53 yo female with history of breast cancer, now on tamoxifen. Assessment: HPI: Patient Active Problem List Diagnosis Code ??? Breast CA 174.9 ??? Blurry vision 368.8 ??? AVM (arteriovenous malformation) 747.60 ??? Allergy, drug 995.27 ??? 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 Hx of total knee replacement V43.65 Past Medical History Diagnosis Date ??? Cerebral AVM ??? Breast cancer ??? Arthritis ??? GERD (gastroesophageal reflux disease) ??? Allergy Meds: Reviewed Labs: Reviewed Weights: Ht: 160 cm Wt: 98.6 kg (217 lb-hallway scale, shoes off) - 03/03/13 BMI: 38.5 IBW: 53-59 kg % IBW: 167% UBW: 75.9 kg (167 lb pre-cancer) % UBW: 130% ABW: 74.8 kg Goal wt: under 200 lbs Wt Hx: 11/2012: 101.2 kg 01/2013: 100.5 kg 03/03/13: 98.6 kg She has 2.6 kg in 3 months. Estimated Nutrient Needs Calorie needs: 6982-7974 kcals ([place], weight loss) Protein needs: 75-90 g (1-1.2 g/kg using ABW) Fluid needs: ~2000 cc Subjective: I just want to make sure what I'm eating is healthy. Before cancer, I weighed 167 lb but gained with steroids. I've been noticing some weight loss because my pants size has gone done. Reports won't eat breakfast (just 2 cups coffee) because when she eats breakfast, she snacks on chips, soda all day. This happens when she eats with grandson on the weekends. Makes most of her food homemade, own salad dressings with yogurt. Is on disability and food stamps. Reports making small changes - salads, brown rice, less pasta, whole wheat pasta. Food Intake: Food allergies or avoidances: None reported. Am: 2 cups of coffee 10-1pm: toast with tomato, occ rivas n' eggs 4:30-8:30: pork chop with pasta, veggies-steamed (usually chicken, fish when on sale) Snack: Homemade brownies Buys frozen vegetables, uses herbs when cooking. Snacks: Only on weekends with grandson Fluids: 1 gal water, iced qkt-[id number]-70 oz, no soda Teas, vitamins, or other nutritional supplements: Vitamin B, allergic to magnesium Symptoms: Bowels: did not address today Physical Activity: Wants to get into walking. She is scared to walk alone in [facility], so only walks ons at brothers house with [id number] (2-4 miles). Will try exercise class here on Wednesdays. Social: Food availability/purchasing, meal planning and preparation: Food stamps, disability Level of Motivation/Readiness to Change: Appears motivated and has already made healthy changes. Nutrition Diagnosis: Obesity related to lack of physical activity, erratic eating schedule as evidenced by skipping meals, sedentary lifestyle. Assessment: Shraddha is a 53 yo F with history of breast cancer. We saw her today for weight loss education and counseling. She has already lost 2.6 kg over the past 3 months by making small changes (more whole grains, veggies, cooking at home). She usually eats 2 meals a day around lunch and dinner-time. Her diet is high in fiber from frozen veggies and whole grains but tends to be low in protein. She takes in adequate fluids. On weekends, she may snack more frequently on chips, soda, and other snack-food. Her activity level is low b/c she has no one to walk with during the week. Discussed concept of balanced plate, increasing protein, and aiming to eat her first meal/snack mid-morning rather than waiting until the afternoon. Reviewed portion sizes. Discussed a plant-based diet and brainstormed ideas to increase activity. She will try the Exercise class offered here. We set small goals of focusing on creating a balanced plate and increasing protein at today's appt. She had good questions and appeared motivated and wants to follow-up in 1-month. Nutrition Intervention & Goals: -- Provided strategies for weight loss. -- Include protein at every meal snack - yogurt, cottage cheese, hummus, meats, eggs, fish, canned tuna -- Aim to eat a small meal/snack in the morning - cottage cheese and fruit, peanut butter and toast -- Create balanced meals using AICR plate model - protein, carbohydrate/whole grain, half-plate of veggies -- Goals: Will increase protein, write down what she is eating -- Try out exercise class offered here on Wed., walk with [id number]-tgs on weekends -- Watch portion sizes - fist-size of carbohydrate/grain, palm/deck of cards for protein. -- Next time: focus on iced tea, adding breakfast/not skipping meals, physical activity Reviewed ACS' survivorship guidelines for reducing risk of cancer recurrance: -- Obtain and maintain a healthy weight. multiple retrospective trials have shown an increased risk of breast cancer recurrence in women who gain weight after a breast cancer diagnosis, and a lower risk of breast cancer recurrence in thinner women -- Physical activity: 150 min/wk of moderate-vigorous physical activity with 2 days resistance/strength training. the Nurse's Health Study showed a 50% decreased risk of breast cancer mortality in women who exercised three hours a week or more at 7-9 METS, equivalent to walking at a moderate pace -- Adopt a plant-based diet: this would include lean meat sources (fish, skinless poultry, eggs, low-fat dairy), fruits, vegetables, and whole grains. Minimize processed foods. -- Vitamin D3 levels has been shown to be low in BrCa patients, thus recommended getting levels checked (either by PCP or oncologists) supplementing 1,000 IU/d and then retesting levels, if suboptimal in 3-6 mos. The [facility] series from [facility] January 2009 showed a lower risk of breast cancer recurrence in women with 25-hydroxy Vitamin D levels of 35 ng/mL or higher -- Recommended supplements: None today. -- Please check 25-OH Vitamin D with next lab draw Educational Handouts provided: -- AICR plate -- Protein list -- Serving sizes visual -- Adopting a plant-based diet -- 1500 patricia sample meal plan -- Wed. exercise class at [facility] Monitoring and Evaluation: Will follow up with Mrs. Chavez in 1 month to re-evaluate. Thank you for this consult. documented in this encounter Plan of Treatment Not on filedocumented as of this encounter Visit Diagnoses Diagnosis Dietary surveillance and counseling - Pr imary documented in this encounter Care Teams Junior Software Engineer Relationship Specialty Start Date End Date Michela Stevenson APRN PCP - General 04/29/10 06/07/16 documented as of this encounter
--- OUTSIDE RECORDS SUMMARY | 2022-05-06 08:19 | XMS_ITS | Encounter Summary ---
:1960 Author Organization [facility] Address [address] [place] [address] Care Team Providers Name Role Phone Michela Stevenson Jaden FIGUEROA Primary Care Provider Encounter Details Date Type Department Care Team Description 05/25/2013 Notes Only [facility] C[facility] OFFICE OF CARE [address] [place], [place] [phone] Social History Tobacco Use Types Packs/Day Years Used Date Smoking Tobacco: Every Day Cigarettes 0.5 37 Smokeless Tobacco: Never Alcohol Use Standard Drinks/Week Comments Yes 0 (1 standard drink = 0.6 oz pure alcoho l) very rare Sex Assigned at Date Recorded Not on file documented as of this encounter Progress Notes Isabelle Quigley MSW - 05/25/2013 2:48 PM EST Follow up with pt during clinic visit per request Domonique James APRN. Ms. James reported pt having financial struggles. Pt indicated she is having a hard time affording food, co-pays for meds and gas. She lives on a limited income with no resources. Pt has been connected to [employer] and with her permission TC to her assistant community manager Ifeanyi Queen [phone]. Inquired if they can assist her with a food card and co-pay funds. Pt instructed to contact Mr. Queen directly and pt indicatedshe could do this. Encouraged to to go up to [employer] for assistance with food but she has no gas to travel to [place] to do this. Assisted pt with a gas card. Pt indicated she will be receiving a holiday food basket tomorrow which will help for a bit also. Pt to reconnect with heating worker at [facility] for some additional assistance. Updated Domonique James APRN outcome of this meeting. documented in this encounter Plan of Treatment Not on filedocumented as of this encounter Visit Diagnoses Not on filedocumented in this encounter Care Teams Consulting Practice Director Relationship Specialty Start Date End Date Michela Stevenson APRN PCP - General 04/29/10 06/07/16 documented as of this encounter
--- OUTSIDE RECORDS SUMMARY | 2022-05-06 08:19 | XMS_ITS | Encounter Summary ---
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
--- OUTSIDE RECORDS SUMMARY | 2022-05-06 08:19 | XMS_ITS | Encounter Summary ---
:1960 Author Organization [facility] [place] [address] Care Team Providers Name Role Phone Michela Stevenson [place] Primary Care Provider Reason for Visit Reason Onset Date Comments Follow-up 06/21/2013 new lump? Encounter Details Date Type Department Care Team Description 06/21/2013 Telephone Hematology Oncology at Jessica Neil RN Follow-up (new lump?) [address] [address] Social History Tobacco Use Types Packs/Day Years Used Date Smoking Tobacco: Every Day Cigarettes 0.5 37 Smokeless Tobacco: Never Alcohol Use Standard Drinks/Week Comments Yes 0 (1 standard drink = 0.6 oz pure alcoho l) very rare Sex Assigned at Date Recorded Not on file documented as of this encounter Miscellaneous Notes Telephone Encounter - Jessica Neil RN - 06/21/2013 1:28 PM EST Patient calls with compliant of several new lumps that she can palpate in her right breast. One of the lumps is very painful. Nothing is visible on the surface of the skin. She is due to see Dr. Delgado early July for routine follow up of her right breast cancer. Her appointment will be moved to06/22/13. She will have lab work done today 06/21/13. documented in this encounter Plan of Treatment Not on filedocumented as of this encounter Visit Diagnoses Not on filedocumented in this encounter Care Teams Operator Automated Process Relationship Specialty Start Date End Date Michela Stevenson APRN PCP - General 04/29/10 06/07/16 documented as of this encounter
--- OUTSIDE RECORDS SUMMARY | 2022-05-06 08:19 | XMS_ITS | Encounter Summary ---
:1960 [place] [address] Care Team Providers Name Role Phone Fletcher Verdin Jaden FIGUEROA Primary Care Provider Encounter Details Date Type Department Care Team Description 10/18/2013 Hospital Encounter MRI at [facility] malformat ion (AVM) [place] [id number] Social History Tobacco Use Types Packs/Day Years [...] - Inhaled Oxygen Concentration - - Weight 96.6 kg (213 lb) 10/18/2013 3:05 PM EDT Height - - Body Mass Index 37.73 10/09/2013 12:56 PM EDT documented in this encounter Medications at Time of Discharge [...] documented as of this encounter Progress Notes Aleyda Gutiérrez RN - 10/13/2013 11:17 AM EDT VIR MRI PRE-SEDATION ASSESSMENT NOTE NAME: Shraddha Chavez AGE: 53 y.o. : 1960 Female [phone] (home) Telephone Information: PCP BUS AND TROLLEY DISPATCHER FLETCHER VERDIN APRN None Allergies Allergen Reactions ??? Latex Itching and [...] Nausea And Vomiting ??? Mobic (Meloxicam) rash Date/Time of call: October 13, 2013/11:18 AM/ PREVIOUS MRI SCAN? [facility] HEIGHT: 5'3 WEIGHT: 213 SCHEDULED SCAN: MRI of Brain and Head SUBJECTIVE: I am claustrophobic and need to take something. ASSESSMENT: Patient appropriate for PO sedation PLAN: Valium 5 mg po x 2 PRIOR SCAN DATE/S SEDATION TYPE SUCCESSFUL 02/14/13 MRI brain Valium 5mg po x2 yes 10/18/13MRI of Brain and Head Valium 5 mg x 1 po yes PT WILL ARRIVE 1 HR. BEFORE SCHEDULED SCAN AND HAVE A ADMIN DIR AVAILABLE. PT STATED TO STATION TENDER THAT THE SEDATION WAS EFFECTIVE FOR SCAN: [id number]__[id number]___[id number] COMMENTS: This patient has been informed that they require a stud driver to drive them home after this procedure. In the absence of a stud driver, IR will not be able to perform this procedure and will need to reschedule.Pt verbalized understanding of these instructions during the pre-procedure education via phone. documented in this encounter Miscellaneous Notes Miscellaneous - Provider, Scanning - 11/01/2013 8:46 AM EDT documented in this encounter Plan of Treatment Not on filedocumented as of this encounter Procedures Procedure Name Priority Date/Time Associated Diagnosis Comme nts MRI BRAIN WWO Routine 10/18/2013 3:45 PM Arteriovenous Results for this CONTRAST (GENERIC) EDT malformation (AVM) pro cedure are in the results section. documented in this encounter Results MRI brain with/WO contrast (10/18/2013 3:45 PM EDT) Anatomical Region Laterality Modality Head Magnetic Resonance Specimen (Source) Anatomical Collection Method Collection Time Re ceived Time Location / / Volume Laterality 10/18/2013 3:45 PM EDT Narrative 10/18/2013 5:06 PM EDT Examination MRA [place] without contrast ?? MR BRAIN W/WO CONTRAST Clinical History Treated with radiation therapy for AVM Assess response to treatment Comparison 04/21/2013, 02/14/2013. Technique MR of the brain performed prior to and f ollowing intravenous administration of 9.6 mL Gadavist. ??MRA [place] per formed without the use of [...] be different from the original. Examination MRA [place] without contrast MR BRAIN W/WO CONTRAST Clinical History Treated with radiation therapy for AVM Assess response to treatment Comparison 04/21/2013, 02/14/2013. Technique MR of the brain performed prior to and f ollowing intravenous administration of 9.6 mL Gadavist. MRA [place] perfo rmed without the use of [...] system, unspecified site documented in this encounter Administered Medications Inactive Administered Medications - up to 3 most recent administrations Medication Order MAR Action Action Date Dose Rate Site diaZEPam (VALIUM) tablet 5-10 mg Given 10/18/2013 1:25 PM EDT 5 mg 5-10 mg, Oral, ONCE, 1 dose, On Wed10/18/13 at 1200, Routine gadobutrol (GADAVIST) 10 mmol/10 mL (1 Given 10/18/2013 3:28 PM EDT 9.6 mLs mmol/mL) injection 9.66 mL 9.66 mL (0.1 mL/kg/dose ? 96.6 kg), Intravenous, ONCE PRN, 1 dose, Starting on Wed10/18/13 at 1506, Until Wed10/18/13 at 1528, Per Protocol, Routine documented in this encounter Care Teams Custom Protection Officer Relationship Specialty Start Date End Date Fletcher Verdin APRN PCP - General 04/29/10 06/07/16 documented as of this encounter
--- OUTSIDE RECORDS SUMMARY | 2022-05-06 08:19 | XMS_ITS | Encounter Summary ---
:1960 Author Organization [place] [address] Care Team Providers Name Role Phone Michela Stevenson CAROLINA Primary Care Provider Reason for Visit Reason Comments Skin Check Encounter Details Date Type Department Care Team Description 04/25/2013 Office Visit Dermatology at [facility], Seborrh eic keratosis Lobo CALLAWAY (Primary Dx) [address] Oziel B DERMATOLOGY [place], [place] [phone] Social History Tobacco Use Types Packs/Day Years Used Date Smoking Tobacco: Every Day Cigarettes 0.5 37 Smokeless Tobacco: Never Alcohol Use Standard Drinks/Week Comments Yes 0 (1 standard drink = 0.6 oz pure alcoho l) very rare Sex Assigned at Date Recorded Not on file documented as of this encounter Progress Notes Vito Casiano MD - 04/25/2013 4:42 PM EST Problem: Skin lesion of concern. Shraddha follows up and is now 53. She continues to be followed at [facility] following her breast CA. She has been doing fairly well. During a recent examination, she asked her provider about a growth she noted on her back and was referred for dermatologic evaluation. Physical examination reveals a pleasant 53-year-old woman who has a waxy, stuck-on appearing seborrheic keratosis of her mid central back. She has smaller seborrheic keratoses present on the lateral arms and forearms bilaterally. Careful examination of the patient's head and neck, chest and back, hands, arms, and forearms is otherwise benign. Assessment and Plan: 1. Seborrheic keratoses, back and dorsal arms and forearms. a. Patient reassured. b. No treatment necessary. c. Return to clinic p.r.n. for new lesions/concerns. COPY: Domonique James APRN documented in this encounter Plan of Treatment Not on filedocumented as of this encounter Visit Diagnoses Diagnosis Seborrheic keratosis - Primary Other seborrheic keratosis documented in this encounter Care Teams Photolithographic Stripper Relationship Specialty Start Date End Date Michela Stevenson APRN PCP - General 04/29/10 06/07/16 documented as of this encounter
--- OUTSIDE RECORDS SUMMARY | 2022-05-06 08:19 | XMS_ITS | Encounter Summary ---
:1960 Author Organization [facility] [place] [address] Care Team Providers Name Role Phone Stevenson, Michela Stanley APRN Primary Care Provider Reason for Visit Reason Comments Other Encounter Details Date Type Department Care Team Description 02/09/2013 Telephone Hematology Oncology at LilaEmma purdy RN [address] [phone] Social History Tobacco Use [...] encounter Miscellaneous Notes Telephone Encounter - Emma Baig RN - 02/09/2013 11:59 AM EDT Message copied by EMMA BAIG on WedFeb 09, 2013 11:59 AM ------ Message from: JD QUESADA Created: WedFeb 09, 2013 11:13 AM Regarding: Pt asked to speak to Domonique Llanes ask if she can talk with Domonique, she states she is getting worst and want to discuss this with her. She can be reached at [phone] Telephone call back to patient. Shraddha reports that she is coming down to [facility] 02/14 for MRI and to see Domonique but I haven't spoken with anyone for a while so I wanted to call and update her on how I am doing. She reports that for 3.5-4 weeks after her treatment she felt great but that her symptoms have come back 10 fold. She complains that her head feels heavy. She is having nausea again even though she is taking ondansetron and lorazepam regularly they seem to help for a short time only and thenausea resumes. She has had no vomiting except for 01/28 when her sister in law took her to the [facility] and she was there for 10 hours. She is overall feeling more fatigue again which she does not like. She would like to speak with Domonique James via phone if possible prior to next week as she is concerned that she will be medicated at the time of the test and may not be as alert as she would like when she sees her in person. I assured Shraddha that I would forward this message to Domonique for her via this note. documented in this encounter Plan of Treatment Not on filedocumented as of this encounter Visit Diagnoses Not on filedocumented in this encounter Care Teams Advisory Services Associate Relationship Specialty Start Date End Date Michela Stevenson APRN PCP - General 04/29/10 06/07/16 documented as of this encounter
--- OUTSIDE RECORDS SUMMARY | 2022-05-06 08:19 | XMS_ITS | Encounter Summary ---
:1960 Author Organization [facility] [place] [address] Care Team Providers Name Role Phone Michela Stevenson Jaden FIGUEROA Primary Care Provider Reason for Visit Reason Comments Radiation Follow-up AVM Encounter Details Date Type Department Care Team Description 10/18/2013 [facility] Domonique James [address] [place] [address] malformation (AVM) [facility] (Primary Dx) [place] [phone] Social History Tobacco Use Types Packs/Day Years [...] Sign Reading Time Taken Comments Blood Pressure 116/85 10/18/2013 4:03 PM EDT Pulse 90 10/18/2013 4:03 PM EDT Temperature 36.6 ??C (97.8 ??F) 10/18/2013 4:03 PM EDT Respiratory Rate 22 10/18/2013 4:03 PM EDT Oxygen Saturation 99% 10/18/2013 4:03 PM EDT room ai r Inhaled Oxygen Concentration - - Weight 96.4 kg (212 lb 8 oz) 10/18/2013 4:03 PM EDT Height - - Body Mass Index 37.64 10/09/2013 12:56 PM EDT documented in this encounter Progress Notes Domonique James, ADOBE MAKER - 10/18/2013 3:56 PM EDT Subjective: Patient ID: Shraddha Chavez is a 53 y.o. female who was treated for breast cancer and received XRT for brain AVM. She is in clinic today for follow up of the AVM and to review scheduled brain MRI HPI Right breast cancer: stage I, pT1C [...] Seborrheic keratosis 702.19 ??? Tachycardia, unspecified 785.0 Allergies Allergen Reactions ??? Latex Itching and [...] to Visit Medication Sig Dispense Refill ??? propranolol (INDERAL) 10 mg tablet Take 10 mg by mouth 2 times daily. ??? ergocalciferol (VITAMIN D) 50,000 unit capsule Take 50,000 Units by mouth once a week. Patient takes twice weekly ??? ondansetron (ZOFRAN) 8 mg tablet Take [...] tablet by mouth daily. 30 tablet 1 No current facility-administered medications on file prior to visit. Advance Directive: On file Interim History: Since Shraddha was last seen in clinic she has been undergoing evaluation for tachycardia. She was seen in cardiology under the care of Dr Aragon on 10/09/2013. She has been started tarik low dose beta anjelica for this. Her ECHO was normal. Neurologically she is stable at this time. She does have intermittent nausea that is managed with zofran. She does not have the severe debilitating headaches that she was having last year. She is walking daily and rarely smokes at this time. ROS is non-contributory at this time. Review of Systems Constitutional: Negative. Negative for activity change. HENT: Negative. Eyes: Negative. Respiratory: Positive for shortness of breath. Negative for cough, chest tightness and wheezing. SOB with exertion Cardiovascular: Negative for leg swelling. See interim history Gastrointestinal: Positive for nausea. Negative for vomiting, abdominal pain and abdominal distention. Genitourinary: Negative. Musculoskeletal: Negative. Skin: Negative. Neurological: Negative. Negative for dizziness, tremors, facial asymmetry, weakness and headaches. Psychiatric/Behavioral: Negative. KPS: 90 Filed Vitals: 10/18/13 1603 BP: 116/85 Pulse: 90 Temp: 36.6 ??C (97.8 ??F) Resp: 22 Weight: 96.389 kg (212 lb 8 oz) SpO2: 99% Objective: Physical Exam Vitals reviewed. Constitutional: She is oriented to person, place, and time. She appears well- developed and well-nourished. No distress. HENT: Head: Normocephalic and atraumatic. Mouth/Throat: Oropharynx is clear and moist. No oropharyngeal exudate. Eyes: Conjunctivae normal and EOM are normal. Pupils are equal, round, and reactive to light. No scleral icterus. Neck: Normal range of motion. Neck supple. No thyromegaly present. Cardiovascular: Normal rate and regular rhythm. Exam reveals no gallop and no friction rub. No murmur heard. Pulmonary/Chest: Effort normal and breath sounds normal. No respiratory distress. She has no wheezes. She has no rales. She exhibits no tenderness. Abdominal: Soft. Bowel sounds are normal. Musculoskeletal: Normal range of motion. She exhibits [...] She displays no seizure activity. Coordination normal. Normal finger to nose Normal tandem walking Skin: Skin is warm and dry. She is not diaphoretic. Psychiatric: She has a normal mood and affect. Her behavior is normal. Judgment and thought content normal. 10/18/2013 Examination MRA umkumiut Minor without contrast MR BRAIN W/WO CONTRAST Clinical History Treated with radiation therapy for AVM Assess response to treatment Comparison 04/21/2013, 02/14/2013. Technique MR of the brain performed prior to and following intravenous administration of 9.6 mL Gadavist. MRA um[place] Minor performed without the use of intravenous contrast. Findings MRI brain: The ventricles remain normal in size and contour. Abnormal T2 signal is present in the anteromedial left temporal lobe extending to the amygdala and subinsular region. Enhancement is presentat the margins of the area of the area. FLAIR signal abnormality adjacent to the rim enhancing lesion has slightly decreased compared to the previous study. The degree of enhancement appears similar. There is no evidence of restricted diffusion.Cerebral parenchyma otherwise appears normal in signal. There are no other areas of abnormal enhancement. MRA: The internal cerebral carotid arteries are normal in course and caliber. MCA, BREONNA, and visualized branches appear normal. The intradural vertebral arteries, basilar artery, and posterior cerebral arteries appear normal course and caliber. There is no evidence of arteriovenous malformation. Impression Unchanged area of enhancement in the anterior medial left temporal lobe presumably representing radiation necrosis. No evidence of recurrent or residual arteriovenous malformation. Assessment and Plan: AVM: anterior medial left temporal lobe AVM was treated with radiation therapy 18 Gy 08/12/2010. Thereis evidence of radiation necrosis. She did have hyperbaric therapy after significant increase in brain edema/radiation necrosis and received 33 of 40 planned treatments with her last treatment 12/01/2012. She did not complete treatment due to problems with transportation. Both radiologically and clinically she has done better post hyperbaric therapy. MRI from today is stable. We reviewed her MRI todayand will plan follow up for her AVM in six months. Patient was seen in follow-up for a total of 20 minutes, with 20 minutes of that time spent discussing her current clinical condition, reviewing today's MRI providing reassurance and encouraging positive life style changes for improved health. documented in this encounter Plan of Treatment Not on filedocumented as of this encounter Procedures Procedure Name Priority Date/Time Associated Diagnosis Comme nts CREATININE Routine 10/18/2013 1:01 PM Arteriovenous Results for this EDT malformation (AVM) procedure are in the results section. documented in this encounter Results (ABNORMAL) Creatinine (10/18/2013 1:01 PM EDT) athologist Signature Creatinine 1.05 0.70 - 1.20 CERNER mg/dL MILLENNIUM Comment: Please note that the pediatric reference intervals supplied above were not validated at [facility]. Results from pediatri c patients should be interpreted in conjunction to the patient's age, height and muscle mass. 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
--- OUTSIDE RECORDS SUMMARY | 2022-05-06 08:19 | XMS_ITS | Encounter Summary ---
:1960 Author Organization [facility] [place] [address] Care Team Providers Name Role Phone Michela Stevenson CAROL[place] Primary Care Provider Encounter Details Date Type Department Care Team Description 06/26/2014 Telephone Hematology Oncology at LilaEmma purdy RN [address] [phone] Social History Tobacco Use [...] Encounter - Emma Bro RN - 06/26/2014 3:57 PM EST Telephone call from Shraddha stating that her tamoxifen prescription runs out at the end of this month. She was wondering if Dr. Lugo could write the prescription for 60 or 90 days instead of 30 days as all of her other prescriptions are written for 90 days. She says she has enough to get her through to her appointment on 07/02 and can discuss it with him then. I let her know that I would put a note of this telephone encounter in her record and communicate to his nurse. She says that would be great.Thank you! documented in this encounter Plan of Treatment Not on filedocumented as of this encounter Visit Diagnoses Not on filedocumented in this encounter Care Teams Family Medicine Physician Relationship Specialty Start Date End Date Michela Stevenson APRN PCP - General 04/29/10 06/07/16 documented as of this encounter
--- OUTSIDE RECORDS SUMMARY | 2022-05-06 08:19 | XMS_ITS | Encounter Summary ---
:1960 Author Organization [facility] [address] Care Team Providers Name Role Phone Michela Stevenson CAROLINA Primary Care Provider Encounter Details Date Type Department Care Team Description 10/09/2013 Hospital Encounter Non-Invasive Cardiology CARDI O, ECHO SIXTY MIN APPT None Tachycardia Lab Quinton Roman MD [facility] [place] [address] [place] [phone] Social History Tobacco Use Types Packs/Day [...] 0 01/27/201208/19 (COMPAZINE) 10 mg Tablet mouth. ergocalciferol (VITAMIN D) Take 50,000 Units 0 [...] Procedure Name Priority Date/Time Associated Comments Diagnosis ECHOCARDIOGRAM Routine 10/09/2013 3:12 Tachycardia Results fo r this TRANSTHORACIC(LEB) PM EDT procedure are in the results section. documented in this encounter Results Echocardiogram Transthoracic(Leb) (10/09/2013 3:12 PM EDT) P athologist Signature EF 67 HEARTLAB SYSTEM Anatomical Region Laterality Modality Other Specimen (Source) Anatomical Location Collection Method / Collectio n Time Received Time / Laterality Volume 10/09/2013 Narrative 10/09/2013 3:17 PM EDT Procedure: ? Transthoracic Echocardiogram Patient: ? YING WEIR F ?(Age): 1960(53) Med Rec#: ?[id number] ? Sex: ?F ? [place] [facility] ? Ht / Wt: ??160(cm)/96.6(kg Pt. Loc: ? Echo Lab ? BSA: ?2.07 Study Date: ?10/09/2013 ? Pt. Type: Outpatient Tape: ?[id number] ? Referring: Quinton Argaon Referring: Michela Stevenson Fagot Heater Helper: Meghan Sage BA, [facility] Diagnosis: ??Arrhythmia (427.89) ??Neoplasm of Unspecified Nature of Oth er Specific Site (239.8) CPT Code(s): ??Echo Full (37032), ??Spec tral Doppler (26019), ??Color Doppler (40526), Indication(s): ??Tachycardia Rhythm: HR ?BP ?116/70 ?? [...] ? Mid-Inferior ?Normal ? Mid-Inferoseptal ?Normal ? Benedict-Septal ? Normal ? Benedict-Anterior ? Normal ? Benedict-Lateral ?Normal ? Benedict-Inferior ? Normal ? Benedict-Tip ?Normal ? Chambers ?Value ?Units (Range) ? [...] ? 10/09/2013 15:16:46 [facility] Procedure Note Deric Cardona MD - 10/09/2013Format ting of this note might be different from the original. Procedure: Transthoracic Echocardiogram Patient: YING Rivas (Age): [birth year]) Med Rec#: [id number] Sex: F [place] Loc[place] [facility] Ht / Wt: 160(cm)/96.6(kg Pt. Loc: Echo Lab BSA: 2.07 Study Date: 10/09/2013 Pt. Type: Outpati ent Tape: [id number] Referring: Quinton Aragon Referring: Michela Stevenson Fagot Heater Helper: Meghan Sage BA, [facility] Diagnosis: Arrhythmia (427.89) Neoplasm of Unspecified Nature of Other Specific Site (239.8) CPT Code(s): Echo Full (42702), Spectral Doppler (44366), Color Doppler (05787), Indication(s): Tachycardia Rhythm: HR BP 116/70 SUMMARY: [...] Normal Mid-Posterolateral Normal Mid-Inferior Normal Mid-Inferoseptal Normal Benedict-Septal Normal Benedict-Anterior Normal Benedict-Lateral Normal Benedict-Inferior Normal Benedict-Tip Normal Chambers Value Units (Range) EF Bi-p [...] 10/09/2013 15:16: 46 Images reviewed and interpretation ana lee [facility] Cardiac Ultrasound Laboratory Quinton Aragon MD ECHO ORDERABLES documented in this encounter Visit Diagnoses Diagnosis Tachycardia Tachycardia, unspecified documented in this encounter Care Teams Hot Roller Relationship Specialty Start Date End Date Michela Stevenson APRN PCP - General 04/29/10 06/07/16 documented as of this encounter
--- OUTSIDE RECORDS SUMMARY | 2022-05-06 08:19 | XMS_ITS | Encounter Summary ---
:1960 Author Organization [facility] [place] [address] Care Team Providers Name Role Phone Michela Stevenson APRN Primary Care Provider Encounter Details Date Type Department Care Team Description 06/12/2014 Orders Only Orthopaed[facility] [place] [facility] Juanjo Jacobson Aftercare following [facility], [place] [phone] ORTHOPAEDIC SURGERY [place], [place] [address] Social History Tobacco Use Types Packs/Day Years Used Date Smoking Tobacco: Every Day Cigarettes 37 Smokeless Tobacco: Never Comments: Smoking about 5 cigarettes a d ay Alcohol Use Standard Drinks/Week Comments Yes 0 (1 standard drink = 0.6 oz pure alcoho l) very rare Sex Assigned at Date Recorded Not on file documented as of this encounter Miscellaneous Notes Addendum Note - Luba St - 09/19/2014 10:44 AM EDT Addended by: LUBA ST on: 09/19/2014 10:44 AM Modules accepted: Orders documented in this encounter Plan of Treatment Not on filedocumented as of this encounter Visit Diagnoses Diagnosis Aftercare following joint replacement documented in this encounter Care Teams Investigation Specialist Relationship Specialty Start Date End Date Michela Stevenson APRN PCP - General 04/29/10 06/07/16 documented as of this encounter
--- OUTSIDE RECORDS SUMMARY | 2022-05-06 08:19 | XMS_ITS | Encounter Summary ---
:1960 Author Organization [facility] [place] [address] Care Team Providers Name Role Phone Michela Stevenson CAROLINA Primary Care Provider Reason for Visit Reason Comments Radiation Follow-up Encounter Details Date Type Department Care Team Description 03/30/2013 Follow-Up Radiation Oncology at [place], Wilfredo Brandt APRN Breast cancer (Primary Dx); [address] CHOWDARY (arteriovenous malformation) [address] [place] [address] [place] [phone] [id number] (Wo rk) Social History Tobacco Use Types [...] Sign Reading Time Taken Comments Blood Pressure 130/90 03/30/2013 2:21 PM EDT Pulse 101 03/30/2013 2:21 PM EDT Temperature 36.8 ??C (98.2 ??F) 03/30/2013 2:21 PM EDT Respiratory Rate 20 03/30/2013 2:21 PM EDT Oxygen Saturation 97% 03/30/2013 2:21 PM EDT Inhaled Oxygen Concentration - - Weight 99.8 kg (220 lb) 03/30/2013 2:21 PM EDT Height - - Body Mass Index 38.98 01/05/2013 8:56 AM EDT documented in this encounter Progress Notes Domonique James, FURNACE PUNCHER - 04/12/2013 11:56 AM EST Identification Shraddha Chavez is a 53 y.o. woman with arteriovenous malformation arising in the left temporal lobewho was treated with SRS with treatment on 08/12/2010 she was also treated with radiation therapy for breast cancer. Patient is being seen per her request. HPI Starting in early January 2010, Mrs [...] headaches spurred a brain MRI performed at [facility]. This demonstrated an area of numerous tortuous [...] vary and show ring scotomas with a REMOTE SENSING SPECIALIST pattern. Reassurance given about her exam findings. [...] to Visit Medication Sig Dispense Refill ??? LORazepam (ATIVAN) 0.5 mg tablet Take 1 tablet by mouth every 6 hours as needed for Anxiety. 15 tablet 1 ??? ondansetron (ZOFRAN) 8 mg tablet Take 1 tablet by mouth every 8 hours as needed for Nausea. 20 tablet 3 ??? aspirin 325 mg tablet Take 325 mg by mouth daily. ??? tamoxifen (NOLVADEX) 20 mg tablet Take 1 tablet by mouth daily. 30 tablet 12 ??? loratadine (CLARITIN) 10 mg tablet Take 1 tablet by mouth daily. 30 tablet 1 ??? dexlansoprazole (DEXILANT) 60 mg CpDM Take 60 mg by mouth daily. Advance Directive: On file. Interval history: Shraddha is in clinic indicating that she may be moving to [place] with her boyfriend and wants to know how her care would be managed if she moved. She reports that she has ongoing intermittent headaches, pressure to the left side of her head but that this is much better. She rarely has nausea. She has had no vomiting. Shraddha was [...] these. She also cancelled follow up at [facility] inneurology and asked to be referred to a provider closer to her home.. She was seen at [facility] x2 then did not return and was seen again at [facility] by neurology on 11/23/[address] Jay [...] cessation. She had tried nicotine patches. She did not follow through with referral to smoking cessation clinic at [facility]. Review of Systems Constitutional: Negative. Negative for [...] disturbance. The patient is nervous/anxious. Filed Vitals: 03/30/13 1421 BP: 130/90 Pulse: 101 Temp: 36.8 ??C (98.2 ??F) TempSrc: Oral Resp: 20 Weight: 99.791 kg (220 lb) SpO2: 97% KPS: 100 Physical Exam Vitals reviewed. Constitutional: [...] appears anxious. Cognition and memory are normal. Asessment/Plans Coordination of care: I reviewed with Shraddha that if she moves to [place] that we would need to know her new address in order to identify an appropriate provider in that community and reassured her that there a excellent academic centers that are available. AVM/headache: Shraddha's symptoms persist ie headache, nausea but are much improved. We will continue to monitor Support was provided to Shraddha who is very anxious. Shraddha is smoking again and we discussed smoking cessation. Patient was seen in follow-up for a total of 20 minutes, with 15 minutes of that time spent discussing his current clinical condition, reviewing medication management, counseling regarding symptom management and planning further management. 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
--- OUTSIDE RECORDS SUMMARY | 2022-05-06 08:19 | XMS_ITS | Encounter Summary ---
:1960 Author Organization [facility] [place] [address] Care Team Providers Name Role Phone Michela Stevenson CAR[place] Primary Care Provider Reason for Visit Reason Comments Cough Encounter Details Date Type Department Care Team Description 12/14/2013 Follow-Up Radiation Oncology at [place], Wilfredo Brandt APRN Cough, persistent [address] (Primary Dx) [address] [facility] [place] [address] [id number] (Wo rk) Social History Tobacco Use Types [...] Sign Reading Time Taken Comments Blood Pressure 129/85 12/14/2013 2:00 PM EDT Pulse 91 12/14/2013 2:00 PM EDT Temperature 37.1 ??C (98.8 ??F) 12/14/2013 2:00 PM EDT Respiratory Rate 24 12/14/2013 2:00 PM EDT Oxygen Saturation 97% 12/14/2013 2:00 PM EDT Inhaled Oxygen Concentration - - Weight 94.8 kg (209 lb) 12/14/2013 2:00 PM EDT Height 160 cm (5' 2.99) 12/14/2013 2:00 PM EDT Body Mass Index 37.03 12/14/2013 2:00 PM EDT documented in this encounter Progress Notes Domonique James, REGIONAL MANAGER - 12/14/2013 2:16 PM EDT Subjective: Patient ID: Shraddha Chavez is a 53 y.o. female who was treated for breast cancer with lumpectomy and radiation therapy and received XRT for brain AVM. She is in clinic today due complaint of persistent cough HPI Right breast cancer: stage I, pT1C [...] to Visit Medication Sig Dispense Refill ??? Cholecalciferol, Vitamin D3, 50,000 unit Cap Take by mouth 2 times daily. ??? propranolol (INDERAL) 10 mg tablet Take [...] Take 60 mg by mouth daily. ??? [DISCONTINUED] loratadine (CLARITIN) 10 mg tablet Take 1 tablet by mouth daily. 30 tablet 1 Advance Directive: On file Interim History: Shraddha requested to be seen in clinic today due to problems with persistent cough. She denies any chest pain or chest tightness. Secretions have been clear. The cough is only during the daytime and is worse when she is outdoor. She has had no fever or chills. As noted in her previous visit with me she has had full workup for tachycardia and has been started on Inderal. She recently decreased her dose of inderal to once a day not understanding that this was a short acting drug and needs to be dosed twice a day as ordered by her PCP and with agreement from [facility] cardiology. She also did not understand that this medication would need to be refilled when she completes this prescription. She thought the inderal was to be taken only until this prescription ends. Review of Systems Constitutional: Negative. Negative for activity change. HENT: Negative. Eyes: Negative. Respiratory: Positive for cough and shortness of breath. Negative for chest tightness and wheezing. SOB with exertion See interim history Cardiovascular: Negative for chest pain and leg swelling. See interim history Gastrointestinal: Negative. Negative for nausea, vomiting, abdominal pain and abdominal distention. Genitourinary: Negative. Musculoskeletal: Negative. Skin: Negative. Neurological: Negative. Negative for dizziness, tremors, facial asymmetry, weakness and headaches. Psychiatric/Behavioral: Negative. KPS: 90 Filed Vitals: 12/14/13 1400 BP: 129/85 Pulse: 91 Temp: 37.1 ??C (98.8 ??F) TempSrc: Oral Resp: 24 Height: 160 cm (5' 2.99) Weight: 94.802 kg (209 lb) SpO2: 97% KPS; 100 Objective: Physical Exam Vitals reviewed. Constitutional: She [...] no rales. She exhibits no tenderness. Musculoskeletal: Normal range of motion. [...] displays no atrophy and no tremor. No sensory deficit. She exhibits normal muscle tone. She displays a negative Romberg sign. She displays no seizure activity. Coordination normal. Skin: Skin is warm and dry. No rash noted. She is not diaphoretic. No erythema. No pallor. Psychiatric: She has a normal mood and affect. Her behavior is normal. Judgment and thought content normal. 10/18/2013 Examination MRA [place] without contrast MR BRAIN W/WO CONTRAST Clinical History Treated with radiation therapy for AVM Assess response to treatment Comparison 04/21/2013, 02/14/2013. Technique MR of the brain performed prior to and following intravenous administration of 9.6 mL Gadavist. MRA [place] performed without the use of intravenous [...] or residual arteriovenous malformation. Assessment and Plan: Cough: Patient has a history of breast cancer but suspect the current cough is most likely allergic.There is no evidence of infection. She is on an allergy med but does not recall the name at this time. She is encouraged to continue this medication. She also has pro-air inhaler which is helpful and she is encouraged to continue this. She was reassured. We will otherwise see her as previously planned. documented in this encounter Procedure Notes Lolita, Bonnie - 12/19/2013 3:06 PM EDTAssociated Order(s): SCAN DOC: LAB documented in this encounter Plan of Treatment Not on filedocumented as of this encounter Procedures Procedure Name Priority Date/Time Associated Diagnosis Comme nts LAB SCAN 12/19/2013 3:06 PM Results f or this EDT procedure are i n the results section . documented in this encounter Results SCAN DOC: LAB (12/19/2013 3:06 PM EDT) Narrative 12/19/2013 3:06 PM EDT Procedure Note Provider, Scanning - 12/19/2013 3:06 PM EDT Scanning Provider MEDIA MGR SCAN EXT ORDR/RSLT documented in this encounter Visit Diagnoses Diagnosis Cough, persistent - Primary Cough documented in this encounter Care Teams Gate Tender Relationship Specialty Start Date End Date Michela Stevenson APRN PCP - General 04/29/10 06/07/16 documented as of this encounter
--- OUTSIDE RECORDS SUMMARY | 2022-05-06 08:19 | XMS_ITS | Encounter Summary ---
:1960 Author Organization [facility] Address [address] [place] [address] Care Team Providers Name Role Phone Michela Stevenson CAR[place] Primary Care Provider Reason for Visit Reason Comments Breast Cancer Follow-up Encounter Details Date Type Department Care Team Description 12/28/2013 [facility] COSMETIC SALES ASSISTANT Radiation injury of brain, subsequent en counter; [address] [place] [address] [address] AVM (arteriovenous malformation) [place], [place] [address] [place], [place] [phone] (Wo rk) Social History Tobacco Use Types Packs/Day Years Used Date Smoking Tobacco: Former Cigarettes 0.5 37 Quit : 12/24/2013 Smokeless Tobacco: Never Alcohol Use Standard Drinks/Week Comments Yes 0 (1 standard drink = 0.6 oz pure alcoho l) very rare Sex Assigned at Date Recorded Not on file documented as of this encounter Last Filed Vital Signs Vital Sign Reading Time Taken Comments Blood Pressure 120/78 12/28/2013 3:21 PM EDT Pulse 79 12/28/2013 3:21 PM EDT Temperature 37 ??C (98.6 ??F) 12/28/2013 3:21 PM EDT Respiratory Rate 18 12/28/2013 3:21 PM EDT Oxygen Saturation 97% 12/28/2013 3:21 PM EDT Inhaled Oxygen Concentration - - Weight 94.3 kg (208 lb) 12/28/2013 3:21 PM EDT Height 160 cm (5' 2.99) 12/28/2013 3:21 PM EDT Body Mass Index 36.85 12/28/2013 3:21 PM EDT documented in this encounter Progress Notes Consuelo Haney, COSMETIC SALES ASSISTANT - 12/28/2013 3:29 PM EDT DIAGNOSIS: 1. 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 ER positive, HER-2/viktoria negative, with one lymph node microscopically positive, other two negative. She had arthralgias and myalgias on aromatase inhibitors and is currently on tamoxifen for a planned 10years . 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 SUBJECTIVE: Shraddha comes in for a 6mo followup. She is having moderately severe fatigue and has beenworked up recently for cardiac issues. BP 120/78 Pulse 79 Temp 37 ??C (98.6 ??F) (Oral) Resp 18 Ht 160 cm (5' 2.99) Wt 94.348 kg(208 lb) BMI 36.85 kg/m2 SpO2 97% Current Outpatient Prescriptions on File Prior to Visit Medication Sig Dispense Refill ??? albuterol (PROVENTIL HFA;VENTOLIN HFA) 90 mcg/actuation inhaler Inhale 2 puffs into the lungs every 4 hours as needed. Use with spacer ??? propranolol (INDERAL) 10 mg tablet Take 10 mg by mouth 2 times daily. ??? ondansetron (ZOFRAN) 8 mg tablet [...] 60 mg by mouth daily. ??? [DISCONTINUED] Cholecalciferol, Vitamin D3, 50,000 unit Cap Take by mouth 2 times daily. ??? [DISCONTINUED] ergocalciferol (VITAMIN D) 50,000 unit capsule Take 50,000 Units by mouth once a week. Patient takes twice weekly Review of Systems Constitutional: Negative for fever, chills, activity change, fatigue and unexpected weight change. HENT: Negative for sore throat, mouth sores and trouble swallowing. Eyes: Negative. Respiratory: Negative for cough, shortness of breath and wheezing. Cardiovascular: Negative for chest pain, palpitations and leg swelling. Has had issues with fluctuating BP and was recently put on Inderal. Gastrointestinal: positive for nausea, but no vomiting, abdominal pain, diarrhea, constipation and abdominal distention. Genitourinary: Negative for dysuria and difficulty urinating. Musculoskeletal: various back and muscle pains but nothing new- she is being followed at [facility] for this. Skin: Negative. Neurological: Chronic Headaches. Hematological: Negative for adenopathy. Head: Normocephalic Eyes: PERRL, conjunctiva/corneas clear benign, both eyes Ears: Normal Nose: Nares normal Neck: Supple, symmetrical, trachea midline Back: Symmetric, no curvature, ROM normal Lungs: Clear to auscultation bilaterally, respirations unlabored Chest Wall: No tenderness or deformity.Normal breast exam bilaterally. Heart: Regular rate and rhythm, S1, S2 normal, no murmur, rub or gallop Abdomen: Soft, non-tender no masses, no organomegaly Extremities: Extremities normal, atraumatic, no cyanosis or edema Pulses: 2+ and symmetric Skin: Skin color, texture, turgor normal, no rashes or lesions Lymph nodes: Cervical, supraclavicular, and axillary nodes normal Neurologic: Normal Labs: 12/19/13 CBC: WBC 7.25 hemoglobin 13.7 platelets 251 CMP: Sodium 143 potassium 3.9 BUN 14 creatinine 1.1 glucose 122 calcium 8.8 total bili 0.35 AST 15 ALT 23 alkaline phosphatase 54 total protein 6.9 albumin 3.6 Assessment/Plan: Shraddha is doing well at this time and has no evidence of recurrent cancer. She has mild hot flashes with the tamoxifen which are tolerable. We will plan to see her back in 6 months with a CBC, CMP. 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
--- OUTSIDE RECORDS SUMMARY | 2022-05-06 08:19 | XMS_ITS | Encounter Summary ---
:1960 Author Organization [facility] [place] [address] Care Team Providers Name Role Phone Graham Michela Stanley APRN Primary Care Provider Reason for Visit Reason Comments Radiation Follow-up nausea Encounter Details Date Type Department Care Team Description 02/08/2014 Follow-Up Radiation Oncology at [place], Wilfredo Brandt APRN Chronic nausea [address] (Primary Dx) [address] [place] [address] [id number] (Wo rk) Social History Tobacco Use Types [...] Sign Reading Time Taken Comments Blood Pressure 136/75 02/08/2014 2:43 PM EDT Pulse 104 02/08/2014 2:43 PM EDT Temperature 37.1 ??C (98.8 ??F) 02/08/2014 2:43 PM EDT Respiratory Rate 20 02/08/2014 2:43 PM EDT Oxygen Saturation 95% 02/08/2014 2:43 PM EDT Inhaled Oxygen Concentration - - Weight 94.3 kg (208 lb) 02/08/2014 2:43 PM EDT Height 160 cm (5' 2.99) 02/08/2014 2:43 PM EDT Body Mass Index 36.85 02/08/2014 2:43 PM EDT documented in this encounter Progress Notes Domonique James APRN - 02/11/2014 2:41 PM EDT S; Shraddha Chavez is a 54 year old woman who asked to be seen in clinic today due to recurrent nausea. She reports no associated vomiting or headache. She indicates that she has not been taking zofran because it does not work. She was seen by retail client manager yesterday for evaluation of etiology of recenthypotension and pre-syncope. Because of multiple allergies she is preferring not to take new medication O: Filed Vitals: 02/08/14 1443 BP: 136/75 Pulse: 104 Temp: 37.1 ??C (98.8 ??F) TempSrc: Oral Resp: 20 Height: 160 cm (5' 2.99) Weight: 94.348 kg (208 lb) SpO2: 95% A: nausea has been present intermittently with No clear etiology. Patient most recent MRI has been stable. Patient prefers non-pharmaceutical approach to managing nausea P Reviewed non pharmacological interventions for nausea including danya. Peppermint tea. Patient will try and call if symptoms persist. documented in this encounter Plan of Treatment Not on filedocumented as of this encounter Visit Diagnoses Diagnosis Chronic nausea - Primary Nausea alone documented in this encounter Care Teams Turf Farmer Relationship Specialty Start Date End Date Michela Stevenson APRN PCP - General 04/29/10 06/07/16 documented as of this encounter
--- OUTSIDE RECORDS SUMMARY | 2022-05-06 08:19 | XMS_ITS | Encounter Summary ---
:1960 Author Organization [facility] Address [address] [place] [address] Care Team Providers Name Role Phone Graham Michela Stanley APRN Primary Care Provider Encounter Details Date Type Department Care Team Description 03/29/2013 Orders Only General Surgery at [facility] ltrating ductal [facility], [place] GROUNDS SUPERINTENDENT carcinoma of breast [facility] (Pr imary Dx) Drive [place] [address] [place] [address] [phone] (Wo rk) Social History Tobacco Use Types [...] on filedocumented as of this encounter Results Mammo digital bilateral Screening [...] Diagnoses Diagnosis Infiltrating ductal carcinoma of breast - Primary Malignant neoplasm of breast (female), u nspecified site Infiltrating ductal carcinoma of breast Malignant neoplasm of breast (female), u nspecified site documented in this encounter Care Teams Asphalt Surface Heater Operator Relationship Specialty Start Date End Date Michela Stevenson APRN PCP - General 04/29/10 06/07/16 documented as of this encounter
--- OUTSIDE RECORDS SUMMARY | 2022-05-06 08:19 | XMS_ITS | Encounter Summary ---
:1960 Author Organization [facility] [place] [address] Care Team Providers Name Role Phone Graham Michela Stanley APRN Primary Care Provider Encounter Details Date Type Department Care Team Description 05/25/2013 [facility] [address] [place] [address] Social History Tobacco Use Types Packs/Day Years Used Date Smoking Tobacco: Every Day Cigarettes 0.5 37 Smokeless Tobacco: Never Alcohol Use Standard Drinks/Week Comments Yes 0 (1 standard drink = 0.6 oz pure alcoho l) very rare Sex Assigned at Date Recorded Not on file documented as of this encounter Progress Notes Elizabeth Hartman RD - 05/25/2013 11:25 AM EST [facility] Initial Dietitian Assessment Seen By: Elizabeth Hartman [...] chronic 724.5, 338.29 ??? Seborrheic keratosis 702.19 Past Medical History Diagnosis Date ??? Cerebral AVM ??? Breast cancer ??? Arthritis ??? GERD (gastroesophageal reflux disease) ??? Allergy ??? Back pain, chronic 04/13/2013 ??? Seborrheic keratosis 04/25/2013 Meds: Reviewed Labs: Reviewed Weights: Ht: 160 cm Wt: 98.4 kg - 05/25/13 BMI: 38.5 IBW: 53-59 kg % IBW: 167% UBW: 75.9 kg (167 lb pre-cancer) % UBW: 130% ABW: 74.8 kg Goal wt: under 200 lbs Wt Hx: 11/2012: 101.2 kg 01/2013: 100.5 kg 03/03/13: 98.6 kg 05/25/13: 98.4; stable Estimated Nutrient Needs Calorie needs: 2254-6333 kcals (Rodriguez-Hines, weight loss) Protein needs: 75-90 g (1-1.2 g/kg using ABW) Fluid needs: ~2000 cc Subjective: Has been having severe headaches daily with nausea but none for the past 3 days. She is confused about her weight; has increased from 205 to 217, but she has not changed anything lately. Food Intake: Food allergies or avoidances: None reported. 4-5 am: 2 cups of coffee 10:30-11am: occ breakfast - toast with butter or peanut butter OR scrambled eggs 1-3 pm - dinner, heavier meal - chicken, stuffing, cranberry sauce, gravy, mashed potatoes Not hungry in evening, occ crackers, cheese Fluids - good, danya amanda (for nausea), milk, raspberry iced tea, 2 cups coffee, water Teas, vitamins, or other nutritional supplements: Vitamin B, allergic to magnesium Symptoms: Nausea: with headaches Physical Activity: Snow shoveling. Likes to walk but only with friends/family to join her. Social: Food availability/purchasing, meal planning and preparation: Food stamps, disability; Isabelle Joyce RAG BOILER spoke with her today. Nutrition Diagnosis: Obesity related to lack of physical activity, erratic eating schedule as evidenced by skipping meals, sedentary lifestyle. Assessment: Shraddha is a 53 yo F with history of breast cancer. I met with her 2 months ago for weight loss education and counseling. Her weight has been stable since then. She has been having headaches and nausea,and she does not eat much on those days. Normally, she eats a small breakfast (toast), a large meal early afternoon, and cheese/crackers in the evening. Her fluid intake is adequate. She has been drinking danya amanda for nausea. Discussed ways to manage nausea nutritionally - danya, lemon, bland foods. She is frustrated that she has not lost weight b/c she hasn't been eating as much. Reviewed metabolism and importance of adequate energy and protein for weight management. Encouraged her to call with any questions or if she would like to discuss weight management in the future, as this visit was focused on tips for nausea and easily tolerated foods. Nutrition Intervention & Goals: -- Try danya tea, lemon water, bland foods for nausea. -- Provided strategies for weight loss. -- [...] class offered here on Wed., walk with [id number] on weekends -- Watch portion sizes - [...] levels, if suboptimal in 3-6 mos. The [facility] series from [facility] January 2009 showed a lower risk of [...] meal plan -- Wed. exercise class at [facility] Monitoring and Evaluation: Will follow up with Mrs. Chavez in 1 month to re-evaluate. Thank you for this consult. documented in this encounter Plan of Treatment Not on filedocumented as of this encounter Visit Diagnoses Not on filedocumented in this encounter Care Teams Kitchen And Bath Designer Relationship Specialty Start Date End Date Michela Stevenson APRN PCP - General 04/29/10 06/07/16 documented as of this encounter
--- OUTSIDE RECORDS SUMMARY | 2022-05-06 08:19 | XMS_ITS | Encounter Summary ---
:1960 Author Organization [facility] [place] [address] Care Team Providers Name Role Phone Michela Stevenson APRN Primary Care Provider Encounter Details Date Type Department Care Team Description 03/02/2013 Ancillary Appointment [facility]ology [facility] [address] [facility] [address] [place] [address] Social History Tobacco Use Types Packs/Day Years Used Date Smoking Tobacco: Every Day Cigarettes 0.5 37 L ast attempted to quit: 05/21/2010 Smokeless Tobacco: Never Alcohol Use Standard Drinks/Week Comments Yes 0 (1 standard drink = 0.6 oz pure alcoho l) very rare Sex Assigned at Date Recorded Not on file documented as of this encounter Progress Notes José Swanson RD - 03/02/2013 3:39 PM EDT Saw pt with Elizabeth Hartman RD, LD at this encounter. Please see her note. documented in this encounter Plan of Treatment Not on filedocumented as of this encounter Visit Diagnoses Not on filedocumented in this encounter Care Teams Commercial Front Load Operator Relationship Specialty Start Date End Date Michela Stevenson APRN PCP - General 04/29/10 06/07/16 documented as of this encounter
--- OUTSIDE RECORDS SUMMARY | 2022-05-06 08:19 | XMS_ITS | Encounter Summary ---
:1960 Author Organization [facility] [place] [address] Care Team Providers Name Role Phone Michela Stevenson CAR[place] Primary Care Provider Encounter Details Date Type Department Care Team Description 06/13/2014 Hospital [place] [address] Social History Tobacco Use Types Packs/Day [...] 04/04/2015 CapsuleIndications: Breast mouth daily. cancer, right ondansetron (ZOFRAN) 8 mg Take 1 tablet by 20 tablet 3 08/0606/27/2014 tabletIndications: Nausea, mouth every 8 Radiation effect hours as needed for Nausea. tamoxifen (NOLVADEX) 20 mg take 1 tablet by 30 tablet 12 07/02/2014 tabletIndications: mouth once daily Malignant neoplasm of right female breast documented as of this encounter Plan of Treatment Not on filedocumented as of this encounter Procedures Procedure Name Priority Date/Time Associated Diagnosis Comme nts MAMMO SCREENING CAD Routine 06/13/2014 10:20 AM R esults for this BILATERAL EST procedure are i n the results section. documented in this encounter Results Mammo digital bilateral Screening with CAD (06/13/2014 10:20 AM EST) Anatomical Region Laterality Modality Breast Bilateral Mammography Specimen (Source) Anatomical Collection Method Collection Time Re ceived Time Location / / Volume Laterality 06/13/2014 10:20 AM EST Narrative 06/14/2014 10:45 AM EST REASON FOR EXAM: Screening. history of breast cancer TECHNIQUE: Cranio-caudal (CC) and mediol ateral oblique (MLO) views of both breasts obtained with direct digital cap ture. The exam was evaluated by CAD Version 8.3.17. FINDINGS: This is a BENIGN FINDING (BIRA DS Category 2 mammogram). ??There is a stable fibroglandular pattern without si gnificant change as compared to prior studies. There is no mammographic eviden ce of cancer. The breasts are predominantly fatty. There are post-surgical changes in both breasts. CONCLUSION This is a negative mammogram with a MED GN FINDING (BIRADS Category 2 mammogram). ??The next mammogram is denisa mmended at an interval dependent on age and breast cancer risk factors. A letter has been sent to this patient [facility]. Procedure Note Gladys Moeller MD - 06/14/2014Formattin g of this note might be different from the original. REASON FOR EXAM: Screening. history of b reast cancer TECHNIQUE: Cranio-caudal (CC) and mediol ateral oblique (MLO) views of both breasts obtained with direct digital cap ture. The exam was evaluated by CAD Version 8.3.17. FINDINGS: This is a BENIGN FINDING (BIRA DS Category 2 mammogram). There is a stable fibroglandular pattern without si gnificant change as compared to prior studies. There is no mammographic eviden ce of cancer. The breasts are predominantly fatty. There are post-surgical changes in both breasts. CONCLUSION This is a negative mammogram with a MED GN FINDING (BIRADS Category 2 mammogram). The next mammogram is recomm ended at an interval dependent on age and breast cancer risk factors. A letter has been sent to this patient b y [facility]. Stephanie Benedict APRN IMChastity MAMMO ORDERABLES documented in this encounter Visit Diagnoses Not on filedocumented in this encounter Care Teams Energy Advisor Relationship Specialty Start Date End Date Michela Stevenson APRN PCP - General 04/29/10 06/07/16 documented as of this encounter
--- OUTSIDE RECORDS SUMMARY | 2022-05-06 08:19 | XMS_ITS | Encounter Summary ---
:1960 Author Organization [facility] [place] [address] Care Team Providers Name Role Phone Michela Stevenson [place] Primary Care Provider Encounter Details Date Type Department Care Team Description 02/14/2013 Hospital Encounter MRI at [facility], [place] [address] Social History Tobacco Use Types Packs/Day [...] 10 mg Tablet mouth. b complex vitamins capsule Take 1 capsule by 30 capsule 12 03/30/2013 mouth daily. LORazepam (ATIVAN) 0.5 mg Take 1 tablet by 15 tablet 1 12/0504/20/2013 tabletIndications: Anxiety mouth every 6 hours as needed for Anxiety. ondansetron (ZOFRAN) 8 mg Take 1 tablet [...] Diagnosis Comme nts MRI BRAIN WWO Routine 02/14/2013 1:23 PM Results for this CONTRAST (GENERIC) EDT procedure are in the results section. documented in this encounter Results MRI brain with/WO contrast (02/14/2013 1:23 PM EDT) Anatomical Region Laterality Modality Head Magnetic Resonance Specimen (Source) Anatomical Collection Method Collection Time Re ceived Time Location / / Volume Laterality 02/14/2013 1:23 PM EDT Narrative 02/14/2013 4:33 PM EDT Examination Pre and postcontrast MRI of the brain. ? ?Noncontrast MRA of the head. Clinical History H/O ARTERIOVENOUS MALFORMATION BRAIN Comparison Comparison is made to the prior MRI perf ormed 08/15/2012. Technique Pre and post contrast MR imaging of the brain. ??10 mL of Gadavist was given IV without difficulty. ??In addition, nonco ntrast MRA of the brain was performed. Findings Again noted are the post therapy changes in the medial left temporal lobe with extensive zone of FLAIR signal change in volume in the left temporal lobe. ?? There continues to be a zone of enhancem ent in the mesial left temporal region and inferior left frontal region. ??The enhancement is similar or minimally improved. ??The edema is significantly i mproved. MRA of the brain demonstrates no evidenc e of large feeding arteries. Impression Evolving post therapy changes, improved from the prior study. ??In particular, the degree of surrounding vasogenic abril a is better. ??Negative MRA. Procedure Note Richardson Moya MD - 02/14/2013Forma tting of this note might be different from the original. Examination Pre and postcontrast MRI of the brain. N oncontrast MRA of the head. Clinical History H/O ARTERIOVENOUS MALFORMATION BRAIN Comparison Comparison is made to the prior MRI perf ormed 08/15/2012. Technique Pre and post contrast MR imaging of the brain. 10 mL of Gadavist was given IV without difficulty. In addition, noncont rast MRA of the brain was performed. Findings Again noted are the post therapy changes in the medial left temporal lobe with extensive zone of FLAIR signal change in volume in the left temporal lobe. There continues to be a zone of enhancem ent in the mesial left temporal region and inferior left frontal region. The en hancement is similar or minimally improved. The edema is significantly imp roved. MRA of the brain demonstrates no evidenc e of large feeding arteries. Impression Evolving post therapy changes, improved from the prior study. In particular, the degree of surrounding vasogenic abril a is better. Negative MRA. Gregory Tadeo MD IMG MRI ORDERABLES documented in this encounter Visit Diagnoses Not on filedocumented in this encounter Care Teams Refractory Repairer Relationship Specialty Start Date End Date Michela Stevenson APRN PCP - General 04/29/10 06/07/16 documented as of this encounter
--- OUTSIDE RECORDS SUMMARY | 2022-05-06 08:19 | XMS_ITS | Encounter Summary ---
:1960 Author Organization [facility] [place] [address] Care Team Providers Name Role Phone Michela Stevenson APRN Primary Care Provider Encounter Details Date Type Department Care Team Description 04/20/2013 Orders Only Radiation Oncology at [place], [facility] (Primary Dx) [address] [place] [phone] (Wo rk) Social History Tobacco Use Types [...] as of this encounter Visit Diagnoses Diagnosis Anxiety - Primary Anxiety state, unspecified documented in this encounter Care Teams Laborer Concrete Paving Relationship Specialty Start Date End Date Michela Stevenson APRN PCP - General 04/29/10 06/07/16 documented as of this encounter
--- OUTSIDE RECORDS SUMMARY | 2022-05-06 08:19 | XMS_ITS | Encounter Summary ---
:1960 Author Organization [facility] [place] [address] Care Team Providers Name Role Phone Stevenson, Michela Jaden [place] Primary Care Provider Encounter Details Date Type Department Care Team Description 09/14/2013 Telephone Radiation Oncology at Domonique Pratt APRN [address] [place] [address] [place], [place] [id number] (Wo rk) Social History Tobacco Use Types Packs/Day Years Used Date Smoking Tobacco: Light Cigarettes 0.5 37 Last attempted to quit: Smoker 07/18/2013 Alcohol Use Standard Drinks/Week Comments Yes 0 (1 standard drink = 0.6 oz pure alcoho l) very rare Sex Assigned at Date Recorded Not on file documented as of this encounter Miscellaneous Notes Telephone Encounter - Domonique James APRN - 09/14/2013 9:51 AM EDT Call from patient. She reports that she is now on a 30 day cardiac monitoring program. She has continued with intermittent tachycardia. Her PCP has also checked her Vitamin D level and it was 14 so she has been started on vitamin D supplementation 50,000 units a week. Mood is overall positive. She is resuming walking exercises. documented in this encounter Plan of Treatment Not on filedocumented as of this encounter Visit Diagnoses Not on filedocumented in this encounter Care Teams Director Of Slot Operations Relationship Specialty Start Date End Date Michela Stevenson APRN PCP - General 04/29/10 06/07/16 documented as of this encounter
--- OUTSIDE RECORDS SUMMARY | 2022-05-06 08:19 | XMS_ITS | Encounter Summary ---
:1960 Author Organization [facility] [place] [address] Care Team Providers Name Role Phone Michela Stevenson [place] Primary Care Provider Reason for Visit Reason Comments Follow Up Surgery Encounter Details Date Type Department Care Team Description 06/13/2014 Follow-Up General Surgery at CLINIC, DR YOBANI dumont of breast [facility] Stephanie Benedict APRN [facility] [place] [address] [place] [address] Social History Tobacco Use Types Packs/Day [...] encounter Progress Notes Stephanie Benedict APRN - 06/13/2014 10:41 AM EST Shraddha is a 54 y[address] Pt of Dr Barnhart who returns for interval surgical eval. No breast concerns today. Mammo earlier today is pending. She did tear her rotator cuff/left and will be seeing ortho soon. By way of history, she initially presented in 09/2009 after a routine screening mammography performed08/14. This revealed a spiculated mass in the deep, central right breast with associated pleomorphic calcifications. Mass was approximately 2.3cm. U/S confirmed a solid mass with smaller dimensions 1.4cm). 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 MRI was then performed for surgical [...] carcinoma with lobular features, right breastTumor was ER/SC positive, HER-2/viktoria negative. 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 Doing well s/p breast conservation therapy with partial mastectomy, sentinel node excision, AC x4 and xrt. Normal exam. Plan follow up 06/2015 with a bilateral mammogram at that time. Shraddha will call me before then with any new concerns. documented in this encounter Plan of Treatment Not on filedocumented as of this encounter Visit Diagnoses Diagnosis History of breast cancer Personal history of malignant neoplasm o f breast documented in this encounter Care Teams Supervisor Chlorine Liquefaction Relationship Specialty Start Date End Date Michela Stevenson APRN PCP - General 04/29/10 06/07/16 documented as of this encounter
--- OUTSIDE RECORDS SUMMARY | 2022-05-06 08:19 | XMS_ITS | Encounter Summary ---
:1960 Author Organization [facility] [place] [address] Care Team Providers Name Role Phone GrahamMichela APRN Primary Care Provider Reason for Referral Consultation (Routine) - Closed Specialty Diagnoses / Procedures Referred By Contact Refer red To Contact Nutrition / Hematology Diagnoses Breast cancer Domonique James APRN [facility] Hem Onc Infusion and Oncology [address] [place]OG[place] [address] [place] [address] Referral ID Status Reason Start Date Expiration Visits Visits Date Requested Authorized [id number] Closed Continuity of 02/17/2013 08/16/2013 1 1 Care Encounter Details Date Type Department Care Team Description 02/17/2013 Orders Only Radiation Oncology at Domonique James Bre ast cancer (Primary [facility] 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) [address] [place] [address] [address] [place] RADIATION ONCOL OGY [address] [place], [place] [phone] (Wo rk) Social History Tobacco Use Types [...] S chedule Referral to Outpatient Referral Routine Breast cancer Ordered : Nutrition Services 3 documented as of this encounter Visit Diagnoses Diagnosis Breast cancer - Primary Malignant neoplasm of breast (female), u nspecified site documented in this encounter Care Teams Apprentice Painter Neckties Relationship Specialty Start Date End Date Michela Stevenson APRN PCP - General 04/29/10 06/07/16 documented as of this encounter
--- OUTSIDE RECORDS SUMMARY | 2022-05-06 08:19 | XMS_ITS | Encounter Summary ---
:1960 Author Organization [facility] [place] [address] Care Team Providers Name Role Phone Fletcher Verdin [place] Primary Care Provider Encounter Details Date Type Department Care Team Description 07/19/2013 Office Visit Neurology at [facility] Simona Romero MD Cervicalgia; [facility] D rive [facility] DR CERVANTES (headache) [place] [address] NEUROLOGY DEPT. [phone] [place], [place] [address] (Wo rk) Social History Tobacco [...] Sign Reading Time Taken Comments Blood Pressure 119/79 07/19/2013 10:41 AM EST Pulse 104 07/19/2013 10:41 AM EST Temperature - - Respiratory Rate - - Oxygen Saturation - - Inhaled Oxygen Concentration - - Weight 98 kg (216 lb) 07/19/2013 10:41 AM EST Height 160 cm (5' 3) 07/19/2013 10:41 AM EST Body Mass Index 38.26 07/19/2013 10:41 AM EST documented in this encounter Progress Notes Jay Saenz MD - 07/19/2013 11:16 AM EST Neurology Clinic Note Patient Name: Shraddha Chavez : 1960 PCP: FLETCHER VERDIN APRN Clinic Attending: Dr. Romero Patient ID: Shraddha Chavez is a 53 y.o. woman seen in Neurology clinic for headache here for a scheduled FU visit (detailed below). Patient was last seen by me in November 2012. November 2012: ?? H/o breast CA s/p sx, chemo, RT, L temporal AVM s/p SRS, radiation necrosis, and headache ?? Re-establishment of care for CERVANTES mgt ?? Migrainous chronic daily headache, possibly worsening from vasogenic edema evident on MRI. Was not on any ppx or prn CERVANTES meds --> started on topamax ?? continue zofran prn nausea, can consider switching to hydroxyzine in the future ?? can consider magnesium & B2 supplement ?? patient will consider ONB for the next visit ?? RTC in 3 months Patient Active Problem List Diagnosis ??? Seborrheic keratosis ??? Back pain, chronic ??? Radiation injury of brain Overview Note: Has MRI findings consistent with radiation-induced brain injury. Received 20.4 Gy. ??? Hx of total knee replacement Overview Note: Bilateral ??? Allergy, drug ??? AVM (arteriovenous malformation) Overview Note: Left temporal lobe, received stereotactic radiosurgery. Treatment Intent: curative Treatment Accomplished: On the morning of 08/12/2010 total of 18 Gy to the target volume at the 86% isodose line, for a total dose at isocenter of 20.9 Gy. A total of five arc kiran were designed for a total of 245 arc degrees. Excellent coverage was obtained on the plan, with mean dose to the target volume totaling 20.4 Gy, minimum dose 17.0 Gy, maximum dose 21.1 Gy, and with the conformality index at 2.7. ??? Blurry vision Overview Note: ??? Breast CA Overview Note: Path: IDC w/lobular extension, high gr, tumor 1.5 cm, + DCIS (minor component, high gr, + necrosis,solid pattern), nearest RM for invasive dz = 0.32 cm, nearest RM for DCIS = > 1 cm, no ALI/PI. 3 sentinel nodes, none + for ca (1 w/IHC + cells only), no WILLIE. Excision of lateral margin R breast w/oresidual malignancy. Excision of new caudal margin R breast w/o residual malignancy. 10/10/09 admitted w/B breast cellulitis. Discharged 10/11/09. 10/14/09 admitted for B postop breast seroma. Radiation therapy: 6100 cGy completed on 03/10/2010 Interval History: Patient returns today, about 8 months since last visit. She had been recommended to FU in 3 months but she says she got lost in having so many appointments. Stopped taking topamax after 1 dose as it caused rash. Reports CERVANTES is tolerable now and occurs 3-4 times/week but easily improves with advil. She attributes CERVANTES improvements to the hyperbaric treatments.Was feeling somewhat ill last week, N/V but better. Currently not interested in any med changes for CERVANTES, not interested in new abortive meds or prevention meds. But she is interested in ONB if it may get rid of the rest of her CERVANTES. Smoking: quit yesterday Past Medical History Diagnosis Date ??? Cerebral AVM ??? Breast cancer ??? Arthritis ??? GERD (gastroesophageal reflux disease) ??? Allergy ??? Back pain, chronic 04/13/2013 ??? Seborrheic keratosis 04/25/2013 Medications: Current Outpatient Prescriptions on File Prior to Visit Medication Sig Dispense Refill ??? b complex vitamins capsule Take 1 [...] tablet by mouth daily. 30 tablet 1 Allergy: Allergies Allergen Reactions ??? Latex Itching and [...] Antibiotics) Hives ??? Tramadol Nausea And Vomiting Review of systems: Constitutional: No fevers or chills Eyes: No vision changes, no diplopia, no blurry vision ENT: No rhinorrhea or pharyngitis, no meningismus CV: No chest pain or palpitations Resp: No cough, no shortness of breath GI: No nausea, vomiting, diarrhea or constipation : No dysuria, no incontinence Heme: No bleeding or bruising Endo: No polyuria or cold intolerance Neuro: See HPI Psych: No depression, poor sleep [x] Review of systems otherwise negative Physical Exam: Vitals: Temp: -- Heart Rate: [104] Resp: -- BP: (119)/(79) SpO2: -- Gen: NAD Neck: Supple, no meningismus, (+) moderate occipital tenderness R>L CV: + S1, S2, RRR, no murmur Resp: CTA B/L Abd: +normoactive bowel sounds, soft, nontender, nondistended Ext: No edema. No bony deformity Neuro Exam: MS: AAOx4, clear language, no dysarthria, follows commands CN: PERRL, EOMI, visual kiran full Facial sensation intact, no facial asymmetry Hearing intact to finger rub Palate elevates symmetrically, tongue protrudes midline SCM and trap strength intact Motor: Normal bulk and tone. 5/5 strength throughout Sensation: Intact to light touch throughout Reflexes: DTRs 1+ throughout Labs: No results found for this or any previous visit (from the past 24 hour(s)). Diagnostic Tests and Imaging: MRI brain, MRA head 02/14/13 Evolving post therapy changes, improved from the prior study. In particular, the degree of surrounding vasogenic edema is better. Negative MRA. Assessment / Plan: Shraddha Chavez is a 53 y.o. woman with h/o breast CA s/p sx, chemo, RT, L temporal AVM s/p SRS, radiation necrosis, and headache here for a routine FU appt for CERVANTES mgt. Patient's CERVANTES has improved since the hyperbaric treatments and vasogenic edema improved on last MRI in Feb 2013. Patient not interested in changing any medication regimen as CERVANTES is not tolerable, but interested in ONB. Clinically stable. -ONB today -discussed avoiding to take advil more than 3 times / week to avoid med overuse headache -continue prn zofran for nausea -RTC PRN or Q2-3 months for ONB if patient chooses to have them done after today Discussed with Dr. Nick Saenz MD Neurology Resident, PGY3 Pager [phone] documented in this encounter Procedure Notes Jay Saenz MD - 07/20/2013 10:38 AM ESTAssociated Order(s): NERVE BLOCK - OCCIPITAL Procedure(s): OCCIPITAL NERVE BLOCK, BILATERAL Pre-Procedure Diagnose(s): Cervicalgia; Headache Post-Procedure Diagnose(s): Cervicalgia; Headache PROCEDURE NOTE: (Occipital Nerve Block) Possible risks of infection & bleeding and benefit of pain relief x 2-3 months explained to the patient. Verbal consent obtained. Using a 3ml syringe, 1.5ml of 1% lidocaine and 1.5ml of 0.25% bupivacaine were drawn and mixed. B/L mastoid process and occipital protuberance were palpated and identified. Using a 27 gauge needle, theabove mixture was injected superficially to great occipital nerve region after cleaning the area thoroughly with alcohol swabs. Patient tolerated the procedure well and reported that the B/L occipital tenderness improved immediately. Jay Saenz MD Neurology Resident, PGY3 Pager [phone] documented in this encounter Plan of Treatment Not on filedocumented as of this encounter Procedures Procedure Name Priority Date/Time Associated Diagnosis Comme nts NERVE BLOCK - Routine 07/20/2013 10:39 AM Cervicalgia Results for this OCCIPITAL EST CERVANTES (headache) procedure are in the results section. documented in this encounter Results NERVE BLOCK - OCCIPITAL (07/20/2013 10:39 AM EST) Narrative Jay Saenz MD - 07/20/2013 10:39 A M EST Jay Saenz MD ? 07/20/2013 10:39 AM PROCEDURE NOTE: (Occipital Nerve Block) Possible risks of infection & bleeding a nd benefit of pain relief x 2-3 months explained to the patient. V erbal consent obtained. Using a 3ml syringe, 1.5ml of 1% lidocai ne and 1.5ml of 0.25% bupivacaine were drawn and mixed. B/L ma stoid process and occipital protuberance were palpated and identified. Using a 27 gauge needle, the above mixture was inje cted superficially to great occipital nerve region after clean ing the area thoroughly with alcohol swabs. Patient tolerated the procedure well and reported that the B/L occipital tenderness improved immediatel y. Jay Saenz MD Neurology Resident, PGY3 Pager [phone] Procedure Note Jay Saenz MD - 07/20/2013 10:38 A M EST PROCEDURE NOTE: (Occipital Nerve Block) Possible risks of infection & bleeding a nd benefit of pain relief x 2-3 months explained to the patient. Verbal consent obtained. Using a 3ml syringe, 1.5ml of 1% lidocai ne and 1.5ml of 0.25% bupivacaine were drawn and mixed. B/L mastoid process and occipital protuberance were palpated and identified. Using a 27 gauge needle, the above mixture was injected superficially to great occipita l nerve region after cleaning the area thoroughly with alcohol swabs. Patient tolerated the procedure well and reported that the B/L occipital tenderness improved immediately. Jay Saenz MD Neurology Resident, PGY3 Pager [phone] Simona Romero MD NEUROLOGY ORDERABLES documented in this encounter Visit Diagnoses Diagnosis Cervicalgia CERVANTES (headache) Headache documented in this encounter Care Teams Vulnerability Assessment Analyst Relationship Specialty Start Date End Date Fletcher Verdin APRN PCP - General 04/29/10 06/07/16 documented as of this encounter
--- OUTSIDE RECORDS SUMMARY | 2022-05-06 08:19 | XMS_ITS | Encounter Summary ---
:1960 Author Organization [facility] [place] [address] Care Team Providers Name Role Phone Michela Stevenson APRN Primary Care Provider Reason for Referral Consultation (Routine) - Closed Specialty Diagnoses / Procedures Referred By Contact Refer red To Contact Dermatology Diagnoses Skin lesion Domonique James APRN [facility] Dermatology [facility] D R [address] [place] [address] [place] [address] Referral ID Status Reason Start Date Expiration Date Visits V isits Requested Authorized [id number] Closed Consult, 04/14/2013 10/11/2013 1 1 Test & Treat Reason for Visit Reason Comments Radiation Follow-up breast cancer Encounter Details Date Type Department Care Team Description 04/06/2013 Follow-Up Radiation Oncology at Wilfredo James APRN Skin lesion (Primary [address] Cristina) [address] [facility] [place] [id number] [phone] (Wo rk) Social History Tobacco Use Types [...] Sign Reading Time Taken Comments Blood Pressure 128/87 04/06/2013 1:47 PM EDT Pulse 111 04/06/2013 1:47 PM EDT Temperature 36.7 ??C (98.1 ??F) 04/06/2013 1:47 PM EDT Respiratory Rate 24 04/06/2013 1:47 PM EDT Oxygen Saturation - - Inhaled Oxygen Concentration - - Weight - - Height 160 cm (5' 2.99) 04/06/2013 1:47 PM EDT Body Mass Index - - documented in this encounter Progress Notes Noris Tuttle - 04/10/2013 7:37 PM EST Subjective: Patient ID: Shraddha Chavez is a 53 y.o. female woman with arteriovenous malformation arising in theleft temporal lobe who was treated with SRS with treatment on 08/12/2010. Patient is being seen per her request due to skin change on her back. She also reports increased pressure in her head and nausea this morning. HPI Starting in early January 2010, Mrs [...] headaches spurred a brain MRI performed at [facility]. This demonstrated an area of numerous [...] vary and show ring scotomas with a ROAD CUTTER pattern. Reassurance given about her exam findings. [...] by mouth daily. 90 capsule 3 ??? LORazepam (ATIVAN) 0.5 mg tablet Take 1 tablet by mouth every 6 hours as needed for Anxiety. 15 tablet 1 ??? dexlansoprazole (DEXILANT) 60 mg [...] daily. 30 tablet 1 Advance Directive: On file. Interim History: Ms. Chavez is in clinic with her sister in-law. She reports that she is still experiencing intermittent headaches, pressure to the left side of her head with associated nausea. She states that she has been using Zofran to alleviate her symptom. However, she denies vomiting. She notes that she noticed a hyperpigmented area on her left upper back that she has not seen before, at least in the last couple of weeks. She is concerned about this. Review of Systems Constitutional: Positive for appetite change. HENT: Negative for mouth sores and trouble swallowing. Complained of feeling a strand of hair in her throat. Eyes: Negative. Respiratory: Negative. Cardiovascular: Negative. Gastrointestinal: Positive for nausea. Negative for vomiting and diarrhea. Skin: Positive for color change. Upper back Neurological: Positive for headaches. Hematological: Negative. Psychiatric/Behavioral: The patient is nervous/anxious. Vitals 04/06/13 Weight - Scale -- [patient refused] Height 160 cm (5' 2.99) Temp 36.7 ??C (98.1 ??F) Temp Source Oral Heart Rate 111 Heart Rate Source Left, NIBP Resp 24 BP 128/87 mmHg BP Location Left arm Patient Position Sitting SpO2 -- [patient dressed for halloween, prefers not to remove nails] Pain Level 0 Objective: Physical Exam Constitutional: She is oriented to person, place, and time. She appears well- developed and well-nourished. HENT: Head: Normocephalic and atraumatic. Right Ear: External ear normal. Left Ear: External ear normal. Nose: Nose normal. Mouth/Throat: Oropharynx is clear and moist. No oropharyngeal exudate. Eyes: Conjunctivae normal and EOM are normal. Pupils are equal, round, and reactive to light. Right eye exhibits no discharge. Left eye exhibits no discharge. No scleral icterus. Neck: Normal range of motion. Neck supple. No JVD present. No tracheal deviation present. No thyromegaly present. Cardiovascular: Normal rate, regular rhythm and normal heart sounds. Exam reveals no gallop and no friction rub. No murmur heard. Pulmonary/Chest: Effort normal and breath sounds normal. No stridor. Abdominal: Bowel sounds are normal. Musculoskeletal: Normal range of motion. She exhibits no edema and no tenderness. Lymphadenopathy: She has no cervical adenopathy. Neurological: She is alert and oriented to person, place, and time. She has normal reflexes. No cranial nerve deficit. Coordination normal. Skin: Skin is warm and dry. No rash noted. No erythema. No pallor. Irregular papule on back about 0.5 cm Psychiatric: Thought content normal. anxious Assessment and Plan: AVM/headache: Ms. Chavez cont. to be symptomatic with persistent frontal headache and nausea, despite MRI result showing moderate improvement than previously. No lumps,lymphedemas, or masses noted. Thus, the plan today is to continue to manage and monitor her symptoms as the recent MRI result revealed improvement. A referral was placed for her to consult with a tool engineer for the flat/homogeneous skin changes noted on her left upper back. We will plan to see her again in six months, but in the interim she is advised to call if she has any questions or concerns. visit was made with Noris Tuttle APRN student. I agree with her assessment and plan documented in this encounter Plan of Treatment Scheduled Referrals Name Type Priority Associated Diagnoses Order S chedule Referral to Outpatient Referral Routine Skin lesion 04/06/20 13 Dermatology documented as of this encounter Visit Diagnoses Diagnosis Skin lesion - Primary Unspecified disorder of skin and subcuta neous tissue documented in this encounter Care Teams Tax Attorney Relationship Specialty Start Date End Date Michela Stevenson APRN PCP - General 04/29/10 06/07/16 documented as of this encounter
--- OUTSIDE RECORDS SUMMARY | 2022-05-06 08:19 | XMS_ITS | Encounter Summary ---
:1960 [place] [address] Care Team Providers Name Role Phone Fletcher Verdin CAR[place] Primary Care Provider Encounter Details Date Type Department Care Team Description 02/14/2013 Hospital Encounter MRI [facility] malformat [facility]) [place] [address] Social History Tobacco Use Types Packs/Day [...] documented as of this encounter Progress Notes Honey Roldan RN - 02/09/2013 8:19 AM EDT VIR MRI PRE-SEDATION ASSESSMENT NOTE NAME: Shraddha Chavez AGE: 53 y.o. : 1960 Female [phone] (home) Telephone Information: PCP MILKING WORKER FLETCHER VERDIN APRN None Allergies Allergen Reactions [...] Antibiotics) Hives ??? Tramadol Nausea And Vomiting Date/Time of call: February 09, 2013/8:20 AM/ PREVIOUS MRI SCAN? Yes, many here, no documentation of sedation. HEIGHT: 5 ft 3 in WEIGHT: 198 lbs SCHEDULED SCAN: MRA brain w/o contrast SUBJECTIVE: Yes I am claustrophobic, I use a facecloth over my eyes. I've had Valium in the past. ASSESSMENT: Appropriate for sedation PLAN: Valium 5-10 mg per protocol. PRIOR SCAN DATE/S SEDATION TYPE SUCCESSFUL 02/14/13 MRI brain Valium 5mg po x2 yes PT WILL ARRIVE 1 HR. BEFORE SCHEDULED SCAN AND HAVE A WATER AND GAS HELPER AVAILABLE. PT STATED TO INSPECTION MACHINE TENDER THAT THE SEDATION WAS EFFECTIVE FOR SCAN: Y N COMMENTS: This patient has been informed that they require a tow bar driver to drive them home after this procedure. In the absence of a tow bar driver, IR will not be able to perform this procedure and will need to reschedule.Pt verbalized understanding of these instructions during the pre-procedure education via phone. documented in this encounter Plan of Treatment Not on filedocumented as of this encounter Procedures Procedure Name Priority Date/Time Associated Diagnosis Comme nts MRI HEAD ANGIOGRAM Routine 02/14/2013 1:23 PM Congenital anoma ly of Results for this WO CONTRAST EDT cerebrovascular system proce dure are in the results section. documented in this encounter Results MRI head angiogram WO contrast (02/14/2013 1:23 PM EDT) Anatomical Region [...] documented in this encounter Visit Diagnoses Diagnosis AVM (arteriovenous malformation) brain Congenital anomaly of cerebrovascular sy stem documented in this encounter Administered Medications Inactive Administered Medications - up to 3 most recent administrations Medication Order MAR Action Action Date Dose Rate Site diaZEPam (VALIUM) tablet 5-10 mg Given 02/14/2013 12:00 PM EDT 10 mg 5-10 mg, Oral, ONCE, 1 dose, On Wed02/14/13 at 0845, Angio/IR (Day of Procedure), Routine gadobutrol (GADAVIST) 10 mmol/10 mL (1 Given 02/14/2013 1:10 PM EDT 10 mLs mmol/mL) injection 10.7 mL 10.7 mL (0.1 mL/kg/dose ? 107 kg Order-specific weight), Intravenous, ONCE PRN, 1 dose, Starting on Wed02/14/13 at 0618, Until Wed02/14/13 at 1310, Per Protocol, Routine documented in this encounter Care Teams Rn Community [facility] Relationship Specialty Start Date End Date Fletcher Verdin, FINAL CANOE INSPECTOR PCP - General 04/29/10 06/07/16 documented as of this encounter
--- OUTSIDE RECORDS SUMMARY | 2022-05-06 08:20 | XMS_ITS | Encounter Summary ---
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 Pt of Dr Barnhart who returns for evaluation of a possible right breast mass. She seen by Dr Lugo last week.No discrete mass was appreciated and she was referred for clinical follow up and imaging. Mammo and US Today were normal. By way of history, she initially presented in 09/2009 after a routine screening mammography performed08/14. This revealed a spiculated mass in the deep, central right breast with associated pleomorphic calcifications. Mass was approximately 2.3cm. U/S confirmed a solid mass with smaller dimensions 1.4cm). 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 MRI was then performed for surgical [...] carcinoma with lobular features, right breastTumor was ER/WI positive, HER-2/viktoria negative. One lymph node was microscopically positive with foci less than 0.2 mm. The other twonodes were negative She was treated by Dr. Lugo with 4 cycles of AC followed by whole breast xrt. Physical Examination: In general, the patient is a well-developed and well- nourished female in no apparent distress. She is oriented times three. Lymphatics: No evidence of cervical, supraclavicular, or axillary lymphadenopathy. Breast: The breasts are slightly asymmetrical with R mildly larger than the left. No skin changes. There are no obvious palpable masses noted in either breast. I am unable to express any nipple discharge today in the clinic. The upper extremities are without evidence of lymphedema. Good range of motion of both shoulders. No nipple discharge or crusting noted on either breast. 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 Doing well s/p breast conservation therapy with partial mastectomy, sentinel node excision, AC x4 and xrt. 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 Good support and a course of ibufprofen. Plan follow up 06/2013 with a bilateral mammogram at that time. Shraddha will call me before then with any new concerns. documented in this encounter Plan of Treatment Not on filedocumented as of this encounter Visit Diagnoses Diagnosis Breast mass - Primary Lump or mass in breast documented in this encounter Care Teams Computer Systems Integrator Relationship Specialty Start Date End Date Michela Stevenson APRN PCP - General 04/29/10 06/07/16 documented as of this encounter
--- OUTSIDE RECORDS SUMMARY | 2022-05-06 08:20 | XMS_ITS | Encounter Summary ---
:1960 Author Organization [facility] Address [address] [place] [address] Care Team Providers Name Role Phone Michela Stevenson APRN Primary Care Provider Encounter Details Date Type Department Care Team Description 11/03/2012 Notes Only Radiation Oncology at Isabelle Quigley MSW [facility] OFFICE OF CARE [address] [place] [address] [phone] Social History Tobacco Use Types Packs/Day Years Used Date Smoking Tobacco: Former Cigarettes 0.3 37 Quit : 05/21/2010 Smokeless Tobacco: Never Alcohol Use Standard Drinks/Week Comments Yes 0 (1 standard drink = 0.6 oz pure alcoho l) very rare Sex Assigned at Date Recorded Not on file documented as of this encounter Progress Notes Isabelle Quigley MSW - 11/04/2012 8:56 AM EDT Request from Domonique James APRN to make outreach to pt to explore resources that might assist her with transportation needs to get to treatments at [facility]. TC pt and then met with her. Pt indicated she is waiting to hear from [facility] re approval for mileage reimbursement but this does nothelp with her immediate need for gas funds. Pt did stop into [facility] after her PCP appointment and before I met with her. She spoke with Ifeanyi Queen, [phone] and he did assist her with 2gas cards and a gift card to purchase food. I also gave her 2 gas cards and gave her a [employer] application to apply for transportation assistance. Inquired if she considered staying at the [facility] some to cut down number of trips but she wants to continue to drive back and forth daily. Pt plans to follow up with Mr. Queen at [facility] next week to see where things stand with [facility]. Informed pt of my availability to assist also. documented in this encounter Plan of Treatment Not on filedocumented as of this encounter Visit Diagnoses Not on filedocumented in this encounter Care Teams Pediatric Physician Assistant Relationship Specialty Start Date End Date Michela Stevenson APRN PCP - General 04/29/10 06/07/16 documented as of this encounter
--- OUTSIDE RECORDS SUMMARY | 2022-05-06 08:20 | XMS_ITS | Encounter Summary ---
:1960 Author Organization [facility] [place] [address] Care Team Providers Name Role Phone Michela Stevenson [place] Primary Care Provider Encounter Details Date Type Department Care Team Description 11/17/2012 Hospital Encounter Nuclear Medicine at [facility] [place] [address] Social History Tobacco Use Types Packs/Day [...] 0 01/27/201208/19 (COMPAZINE) 10 mg Tablet mouth. vitamin E 400 unit Take 1 capsule by 60 capsule 3 10/10/2012 11/23/2012 capsuleIndications: Vitamin mouth 2 times E deficiency daily. ondansetron (ZOFRAN) 8 mg Take 1 [...] Name Priority Date/Time Associated Diagnosis Comme nts NM BONE SCAN WHOLE Routine 11/17/2012 12:41 PM Re sults for this BODY EDT procedure are i n the results section. documented in this encounter Results NM whole body bone scan (11/17/2012 12:41 PM EDT) Anatomical Region Laterality Modality Other Specimen (Source) Anatomical Collection Method Collection Time Re ceived Time Location / / Volume Laterality 11/17/2012 12:41 PM EDT Narrative 11/17/2012 1:06 PM EDT Examination WHOLE BODY BONE SCAN Clinical History R/O Fx, metastatic process Comparison October 16, 2010 Technique Three hours following the intravenous ad ministration of 24.4 mCi of technetium-99m MDP, images of the entire skeleton were obtained. 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 This i s unchanged from the prior study. ?? Bilateral knee prostheses are present. ? ? There is no evidence of skeletal metasta ses. ??There is no significant change since the prior study. Impression No skeletal metastases. Procedure Note Gregory Ritter MD - 11/17/2012 Examination WHOLE BODY BONE SCAN Clinical History R/O Fx, metastatic process Comparison October 16, 2010 Technique Three hours following the intravenous ad ministration of 24.4 mCi of technetium-99m MDP, images of the entire skeleton were obtained. 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 This i s unchanged from the prior study. Bilateral knee prostheses are present. There is no evidence of skeletal metasta ses. There is no significant change since the prior study. Impression No skeletal metastases. Isabelle Gruber SHOTGUN SHELL ASSEMBLY MACHINE OPERATOR IMG NM ORDERABLES documented in this encounter Visit Diagnoses Not on filedocumented in this encounter Care Teams Supervisor Framing Mill Relationship Specialty Start Date End Date Michela Stevenson APRN PCP - General 04/29/10 06/07/16 documented as of this encounter
--- OUTSIDE RECORDS SUMMARY | 2022-05-06 08:20 | XMS_ITS | Encounter Summary ---
:1960 Author Organization [facility] [place] [address] Care Team Providers Name Role Phone Michela Stevenson [place] Primary Care Provider Reason for Visit Reason Comments Other Encounter Details Date Type Department Care Team Description 12/22/2012 Telephone Hematology Oncology at LilaEmma purdy RN [place] [phone] Social History Tobacco Use Types Packs/Day Years Used Date Smoking Tobacco: Former Cigarettes 0.3 37 Quit : 05/21/2010 Smokeless Tobacco: Never Alcohol Use Standard Drinks/Week Comments Yes 0 (1 standard drink = 0.6 oz pure alcoho l) very rare Sex Assigned at Date Recorded Not on file documented as of this encounter Miscellaneous Notes Telephone Encounter - Emma Baig RN - 12/22/2012 9:44 AM EDT Message copied by EMMA BAIG on WedDec 22, 2012 9:44 AM ------ Message from: MACO MONTOYA Created: WedDec 22, 2012 8:54 AM Regarding: call back Patient called, states anti nausea medication is not working. Please call her. Returned call to patient who reports that although ondansetron helped her during her treatments that it is not helping at all now. She is taking 8 mg every 8 hours without relief. No vomiting but she is rating the nausea at level 12 on a 0-10 scale most of the time. She does report that her headacheshave been further apart and tolerable. It is just the nausea that is bothering her. I updated CAROLINA Vieira regarding phone call and patient status. She will return call to patient directly. documented in this encounter Plan of Treatment Not on filedocumented as of this encounter Visit Diagnoses Not on filedocumented in this encounter Care Teams Lumber Sticker Relationship Specialty Start Date End Date Michela Stevenson APRN PCP - General 04/29/10 06/07/16 documented as of this encounter
--- OUTSIDE RECORDS SUMMARY | 2022-05-06 08:20 | XMS_ITS | Encounter Summary ---
:1960 Author Organization [facility] [address] Care Team Providers Name Role Phone Michela Stevenson CAR[place] Primary Care Provider Encounter Details Date Type Department Care Team Description 11/15/2012 Notes Only [facility] Biggs Jr., [place] [address] [place] [address] [phone] Social History Tobacco Use Types Packs/Day Years Used Date Smoking Tobacco: Former Cigarettes 0.3 37 Quit : 05/21/2010 Smokeless Tobacco: Never Alcohol Use Standard Drinks/Week Comments Yes 0 (1 standard drink = 0.6 oz pure alcoho l) very rare Sex Assigned at Date Recorded Not on file documented as of this encounter Progress Notes Fernando Biggs Jr., MD - 11/15/2012 8:01 AM EDT Ms. Chavez concerned about continued episodic headaches and dizziness. Wonders if hyperbaric oxygen is providing any benefit. Ms. Chavez has had episodic headaches with left sided pressure prior to beginning hyperbarics. Also,the episodic dizziness has been longstanding. 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 Also, there is no clear relation of the headaches and dizziness to the hyperbaric treatments (i.e. The treatments do not seem to produce these symptoms reliably--they come and go). Discussed with Ms. Chavez that the goal of the hyperbaric treatments is to reduce the edema and areas of necrosis seen on her MRI. We can't reliably relate her brain necrosis to the headaches and dizziness. The best measures we will have on whether we have been successful is whether she shows improvement on the MRI and/or improvement in her neurological tests. There is no guarantee that hyperbaric oxygen will be effective, but since hyperbaric oxygen is effective for radiation injury in general, we hope that we will see improvement in her case. Ms. Chavez seems to understand the overall plan, and she was reassured that she could stop the treatments at any time. documented in this encounter Plan of Treatment Not on filedocumented as of this encounter Visit Diagnoses Not on filedocumented in this encounter Care Teams Bracer Relationship Specialty Start Date End Date Michela Stevenson APRN PCP - General 04/29/10 06/07/16 documented as of this encounter
--- OUTSIDE RECORDS SUMMARY | 2022-05-06 08:20 | XMS_ITS | Encounter Summary ---
:1960 Author Organization [facility] [place] [address] Care Team Providers Name Role Phone Graham Michela Stanley APRN Primary Care Provider Reason for Visit Reason Comments On Treatment Visit hbot #25 Encounter Details Date Type Department Care Team Description 11/21/2012 Office Visit [facility] Radiat ion injury of brain Medicine at [facility] (Primary Dx) [place] [address] Social History Tobacco Use Types Packs/Day [...] Sign Reading Time Taken Comments Blood Pressure 114/64 11/21/2012 10:20 AM EDT Pulse 57 11/21/2012 10:20 AM EDT Temperature 37 ??C (98.6 ??F) 11/21/2012 8:15 AM EDT Respiratory Rate 18 11/21/2012 10:20 AM EDT Oxygen Saturation - - Inhaled Oxygen Concentration - - Weight - - Height - - Body Mass Index - - documented in this encounter Progress Notes Meghan Durham APRN - 11/21/2012 9:09 AM EDT Subjective: Patient ID: Shraddha Chavez is a 52 y.o. female. HPI:Ms. 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 10/10/12: Hyperbaric oxygen treatments initiated for post radiation injury. 11/21/12: Ms Chavez reports intermittent left sided head pain and pressure. Review of Systems Constitutional: Negative for fever, chills and appetite change. HENT: Negative for ear pain, congestion and ear discharge. Respiratory: Negative for cough and shortness of breath. Skin: Negative. Neurological: Left side head pressure and pain continue. Psychiatric/Behavioral: Anxious at times. Objective: Physical Exam Constitutional: She is oriented to person, place, and time. No distress. HENT: Right Ear: External ear normal. Left Ear: External ear normal. TMs intact bilaterally . Cardiovascular: Normal rate and regular rhythm. Pulmonary/Chest: Effort normal. No respiratory distress. Neurological: She is alert and oriented to person, place, and time. Skin: Skin is warm and dry. She is not diaphoretic. Psychiatric: She has a normal mood and affect. Assessment and Plan: INTERVAL HISTORY: Visual Change: Denies SOB: Denies Headaches: Left sided head pain continues. Cough:Denies Ear Pain: Denies Chest Pain:Denies Cold symptoms:Denies Shraddha Chavez received hyperbaric oxygen treatment today for adverse effects of radiation. 400 IU vitamin E taken before treatment. 100% cotton clothing in place. Patient checked for non-approved chamber items. Grounding strap applied and grounding verified,patient placed in chamber,communications checked. Meghan Durham APRN Administered the treatment and monitored the patient. HYPERBARIC TREATMENT: Number-25 Planned number of treatments-40 Compression Rate:1.5 Decompression Rate:2.0 ALMAZ-2.4 Treatment start time:8:20am Treatment Time- 90 minutes Chamber time- 118 Minutes- Sechrist ChamberTreatment end time: Air Breaks-One 10 minute air break Treatment Notes: Ms. Chavez tolerated treatment well today. Will continue treatments as scheduled although Ms. Chavez reports that 11/23/12 will be her last HBO treatment due to financial constraints. Will reports same to her referring provider. documented in this encounter Plan of Treatment Not on filedocumented as of this encounter Visit Diagnoses Diagnosis Radiation injury of brain - Primary Intracranial injury of other and unspeci fied nature, without mention of open intracranial wound, unspecified state of consciousness documented in this encounter Care Teams Bridge Ironworker Helper Relationship Specialty Start Date End Date Michela Stevenson APRN PCP - General 04/29/10 06/07/16 documented as of this encounter
--- OUTSIDE RECORDS SUMMARY | 2022-05-06 08:20 | XMS_ITS | Encounter Summary ---
:1960 Author Organization [facility] [place] [address] Care Team Providers Name Role Phone Graham Michela Stanley APRN Primary Care Provider Reason for Visit Reason Comments On Treatment Visit HBOT # 26 Encounter Details Date Type Department Care Team Description 11/22/2012 Office Visit Center for Hyperbaric Radiat ion injury of brain Medicine at [facility] (Primary Dx) [place] [address] Social History Tobacco Use Types Packs/Day [...] Sign Reading Time Taken Comments Blood Pressure 127/69 11/22/2012 10:00 AM EDT Pulse 56 11/22/2012 10:00 AM EDT Temperature 36.8 ??C (98.3 ??F) 11/22/2012 8:10 AM EDT Respiratory Rate 18 11/22/2012 10:00 AM EDT Oxygen Saturation - - Inhaled Oxygen Concentration - - Weight - - Height - - Body Mass Index - - documented in this encounter Progress Notes Meghan Durham APRN - 11/22/2012 8:26 AM EDT Subjective: Patient ID: Shraddha Chavez [...] oxygen treatments initiated for post radiation injury. 11/22/12: Ms Chavez reports no new symptoms in the interim. Review of Systems Constitutional: Negative for fever, chills, activity change and appetite change. HENT: Negative for ear pain, congestion and ear discharge. Eyes: Negative for visual disturbance. Respiratory: Negative for cough and shortness of breath. Psychiatric/Behavioral: Negative. Objective: Physical Exam Constitutional: She is oriented to person, place, and time. No distress. HENT: Right Ear: External ear normal. Left Ear: External ear normal. TMs intact bilaterally, no erythema. Cardiovascular: Normal rate and regular rhythm. Neurological: She is alert and oriented to person, place, and time. Skin: Skin is warm and dry. She is not diaphoretic. Psychiatric: She has a normal mood and affect. Assessment and Plan: INTERVAL HISTORY: Visual Change: Denies SOB: Denies Headaches: Left side head pressure and pain. Cough:Denies Ear Pain: Denies Chest Pain:Denies Cold symptoms:Denies Shraddha Chavez received hyperbaric oxygen treatment today for adverse effects of radiation. 400 IU vitamin E taken before treatment. 100% cotton clothing in place. Patient checked for non-approved chamber items. Grounding strap applied and grounding verified,patient placed in chamber,communications checked. Meghan Durham APRN Administered the treatment and monitored the patient. HYPERBARIC TREATMENT: Number-26 Planned number of treatments-40 Compression Rate:1.5 Decompression Rate:2.0 ALMAZ-2.4 Treatment start time:8:15AM Treatment Time- 90 minutes Chamber time- 118 Minutes- Sechrist Chamber Air Breaks-One 10 minute air break Education/Instruction: Clearing of ears: Reviewed techniques Smoking cessation: Former smoker Treatment Notes: Ms. Chavez tolerated HBOT well today. Will return 11/23/12 for HBOT. documented in this encounter Plan of Treatment Not on filedocumented as of this encounter Visit Diagnoses Diagnosis Radiation injury of brain - Primary Intracranial injury of other and unspeci fied nature, without mention of open intracranial wound, unspecified state of consciousness documented in this encounter Care Teams Dtp Operator Relationship Specialty Start Date End Date Michela Stevenson APRN PCP - General 04/29/10 06/07/16 documented as of this encounter
--- OUTSIDE RECORDS SUMMARY | 2022-05-06 08:20 | XMS_ITS | Encounter Summary ---
:1960 Author Organization [facility] Address [address] [place] [address] Care Team Providers Name Role Phone Michela Stevenson Jaden FIGUEROA Primary Care Provider Reason for Visit Reason Comments Radiation Follow-up headache Encounter Details Date Type Department Care Team Description 12/22/2012 Follow-Up Radiation Oncology at [facility], Wilfredo Brandt APRN Anxiety (Primary Dx); [address] [facility] [place] [address] [id number] (Wo rk) Social History Tobacco Use Types [...] Sign Reading Time Taken Comments Blood Pressure 112/84 12/22/2012 12:28 PM EDT Pulse 116 12/22/2012 12:00 PM EDT Temperature 36.8 ??C (98.2 ??F) 12/22/2012 12:00 PM EDT Respiratory Rate 20 12/22/2012 12:00 PM EDT Oxygen Saturation 97% 12/22/2012 12:00 PM EDT Inhaled Oxygen Concentration - - Weight 100 kg (220 lb 8 oz) 12/22/2012 12:00 PM EDT Height - - Body Mass Index 39.06 11/30/2012 11:32 AM EDT documented in this encounter Patient Instructions Patient InstructionsDomonique James APRN - 12/22/2012 12:31 PM EDT Shraddha--please start the Topamax and call me at 4:00 to report on your status Take one lorazepam as well documented in this encounter Progress Notes Domonique James APRN - 12/22/2012 4:59 PM EDT Identification Shraddha Chavez is a 52 y.o. 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 Patient is being seen per her request for symptom management. HPI Starting in early January 2010, Mrs [...] headaches spurred a brain MRI performed at [facility]. This demonstrated an area of numerous tortuous [...] intranidal or feeding artery aneurysms were present. ASRY testing was also performed. This demonstrated lateralization [...] vary and show ring scotomas with a SENIOR VICE PRESIDENT AND CHIEF INFORMATION OFFICER pattern. Reassurance given about her exam findings. New MRx given. 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 topamax 25mg QHS x 2-3 weeks, if tolerated increase to 50mg qhs with plan to continue zofran prn nausea ---11/30/2012--patient completed 33 of 40 planned hyperbaric treatments. --- 3. Allergies 4. GERD 5. Arthritis Surgical history: 1. Partial mastectomy and bilateral breast reduction 2. Hysterectomy 3. Carpal tunnel release 4. Rotator cuff repair. Allergies Allergen Reactions ??? Latex Itching and [...] to Visit Medication Sig Dispense Refill ??? vitamin E 400 unit capsule Take 400 Units by mouth daily. ??? dexlansoprazole (DEXILANT) 60 mg CpDM Take [...] by mouth daily. 30 tablet 1 ??? VITAMIN B COMPLEX ORAL Take 1 tablet by mouth daily. 1 Interval history: Shraddha asked to be seen. She reports that she has had severe headaches for the last three days with associated nausea. She has been using her zofran with poor relief of nausea. She did not complete entire course of hyperbaric oxygen therapy (she completed 33 of 40 treatments) due to problems with transportation. She describes the headache as pressure to her head. 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 She was treated with an occipital nerve block which gaveher short term relief. She did not tolerate medications indomethacin PRN and nortriptiline for breakt hrough episodes and discontinued these. She also cancelled follow up at [facility] in neurology and asked to be referred to a provider closer to her home.. She was seen at [facility]. Recently she was referred back to the headache clinic/neurology at [facility] and she was seen by Dr Fenton on 11/23/2012. She was started on topamax 25mg QHS x 2-3 weeks, if tolerated increase to 50mgqhs with plan to continue zofran prn nausea. She reports that she never started the topamax because someone told her that it might harm her kidneys. Michela was also seen in the ER at [facility] last week 12/02/2012 due to severe epigastric pressure. Records were obtained and acute abdominal series was negative. She had an abdominal/pelvic CT which showed no acute process. Her labs were all unremarkable. Review of Systems Constitutional: Negative. Negative for [...] disturbance. The patient is nervous/anxious. Filed Vitals: 12/22/12 1200 12/22/12 1228 BP: 141/96 112/84 Pulse: 116 Temp: 36.8 ??C (98.2 ??F) TempSrc: Oral Resp: 20 Weight: 100.018 kg (220 lb 8 oz) SpO2: 97% Physical Exam Vitals reviewed. Constitutional: She is [...] no seizure activity. Coordination and gait normal. Skin: Skin is warm and dry. No rash noted. She is not diaphoretic. No cyanosis or erythema. No pallor. Psychiatric: Her speech is normal and behavior is normal. Judgment and thought content normal. Her mood appears anxious. Cognition and memory are normal. Examination: 08/15/2012 MR BRAIN W/WO CONTRAST Clinical History AVM S/P Radiosurgery ? RT effect as well as AVM partial repsonse Please eval for further AVM response as well as responseof treatment effect Comparison MRI of the brain of 01/29/2012. Technique MRI of the brain was obtained both before and after the administration of 10 mL Gadavist. Noncontrast MRA of the head was obtained. Findings At the site of the former arteriovenous malformation there is now a area of rim enhancement with mild mass effect and extensive surrounding vasogenic edema. The extent of abnormal enhancing tissue and edema are markedly greater than they had been the study of January 2012. There is minor effacement of sulci and very slight rightward midline shift but no downward herniation. There is no intracranial hemorrhage or extra-axial collection. Paranasal sinuses and mastoids are clear. The intracranial flow voids showno abnormality. The orbits are of normal appearance. MRA: There is no remaining flow-related enhancement at the site of the arteriovenous malformation. The intracranial arteries are of normal course and caliber. Impression 1. No evidence of residual arteriovenous malformation. 2. 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 There is extensive surrounding vasogenic edema. Asessment/Plans AVM/headache: Shraddha's symptoms have recurred and persist ie headache, nausea. She was seen by neurology 11/23 and was to start Topamax which she did not do. She did not complete her full course of hyperbaric oxygen therapy. She completed 33 of 40 planned treatments and after several attempts by the hyperbaric staff to contact patient they have discharged her from this therapy. Support was provided to Shraddha who is very anxious. She has the topamax at home and she was advised to start therapy. Follow up call at the end of the day to patient indicates that she had relief. She was reassured that it was safe for her to take the topamax. We will be repeating her brain MRI in February. Patient was seen in follow-up for a total of 20 minutes, with 15 minutes of that time spent discussing his current clinical condition, reviewing medication management, counseling regarding symptom management and planning further management. documented in this encounter Procedure Notes Provider, Scanning - 01/02/2013 1:09 PM EDTAssociated Order(s): SCAN DOC: LAB Provider, Scanning - 01/02/2013 10:58 AM EDTAssociated Order(s): SCAN DOC: LAB documented in this encounter Plan of Treatment Not on filedocumented as of this encounter Procedures Procedure Name Priority Date/Time Associated Diagnosis Comme nts LAB SCAN 01/02/2013 1:09 PM Results f or this EDT procedure are i n the results section . LAB SCAN 01/02/2013 10:58 AM Results for this EDT procedure are i n the results section . documented in this encounter Results SCAN DOC: LAB (01/02/2013 1:09 PM EDT) Narrative 01/02/2013 1:09 PM EDT Procedure Note Provider, Scanning - 01/02/2013 1:09 PM EDT Scanning Provider MEDIA MGR SCAN EXT ORDR/RSLT SCAN DOC: LAB (01/02/2013 10:58 AM EDT) Narrative 01/02/2013 10:58 AM EDT Procedure Note Provider, Scanning - 01/02/2013 10:58 AM EDT Scanning Provider MEDIA MGR SCAN EXT ORDR/RSLT documented in this encounter Visit Diagnoses Diagnosis Anxiety - Primary Anxiety state, unspecified Headache(784.0) Headache documented in this encounter Care Teams Wallpaper Consultant Relationship Specialty Start Date End Date Michela Stevenson APRN PCP - General 04/29/10 06/07/16 documented as of this encounter
--- OUTSIDE RECORDS SUMMARY | 2022-05-06 08:20 | XMS_ITS | Encounter Summary ---
:1960 Author Organization [facility] [place] [address] Care Team Providers Name Role Phone Graham Michela Stanley APRN Primary Care Provider Reason for Visit Reason Comments On Treatment Visit HBOT #16 Encounter Details Date Type Department Care Team Description 11/04/2012 Office Visit Center for Hyperbaric Radiat ion injury of brain Medicine at [facility] (Primary Dx) [place] [address] Social History Tobacco Use Types Packs/Day [...] Sign Reading Time Taken Comments Blood Pressure 116/74 11/04/2012 11:15 AM EDT Pulse 80 11/04/2012 11:15 AM EDT Temperature 36.9 ??C (98.5 ??F) 11/04/2012 9:30 AM EDT Respiratory Rate 18 11/04/2012 11:15 AM EDT Oxygen Saturation - - Inhaled Oxygen Concentration - - Weight - - Height - - Body Mass Index - - documented in this encounter Progress Notes Meghan Durham APRN - 11/04/2012 9:41 AM EDT Subjective: Patient ID: Shraddha Chavez [...] oxygen treatments initiated for post radiation injury. 11/04/12: Ms Chavez has not received HBOT over the last 2 days r/t work up of symptoms per her PCP.Ms. Chavez reports continued left sided head pressure .She reports continued chest pressure. She was seen by her PCP on 09/01/12 and underwent ECG and blood work. She was referred by her PCP to see a social services assistant whom she saw 11/03/12. She is also to receive a cardiac ultrasound which has not been scheduled as yet. . Review of Systems Constitutional: Negative for fever and chills. HENT: Negative for ear pain, congestion and ear discharge. Eyes: Negative for visual disturbance. Respiratory: She continues to report chest pressure today. Cardiovascular: Negative for palpitations. Skin: Negative. Neurological: Left sided head pressure continues. Psychiatric/Behavioral: She remains slightly anxious. Objective: Physical Exam Constitutional: She is oriented to person, place, and time. HENT: Right Ear: External ear normal. Left Ear: External ear normal. TMs intact bilaterally with no erythema. Cardiovascular: Normal rate and regular rhythm. Pulmonary/Chest: Effort normal. No respiratory distress. Neurological: She is alert and oriented to person, place, and time. Skin: Skin is warm and dry. She is not diaphoretic. Psychiatric: Slightly anxious today. Assessment and Plan: INTERVAL HISTORY: Visual Change: Denies SOB: Denies Headaches: Denies Cough:Denies Ear Pain: Denies Chest Pain: Denies Cold symptoms:Denies Shraddha Chavez received hyperbaric oxygen treatment today for adverse effects of radiation. 400 IU vitamin E taken before treatment. Chamber settings checked via checklist. Patient placed in chamber, communications checked, and ground strap attached. Meghan Durham APRN/Amy Peterson RN Administered the treatment and monitored the patient. HYPERBARIC TREATMENT: Number-16 Planned number of treatments-40 Compression Rate:1.5 Decompression Rate:2.0 ALMAZ-2.0 Treatment Time- 90 minutes Chamber time- 116 Minutes- Sechrist Chamber Air Breaks-One 10 minute air break Treatment Notes: A phone call was placed to Domonique James APRN to discuss Ms. Chavez's symptoms. The plan is to continue HBOT and provide support. Reinforce importance of continuing with treatment plan. Advise use of Ibuprofen 800mg every 6 hours with food as needed for headache. NSAIDS are listed as an allergy,however she can tolerate ibuprofen. Ms. Chavez will continue with work up for chest pressure per PCP. Dr. Biggs did discuss with Ms. Chavez today the importance of continuing HBO treatment plan. She acknowledged understanding of same and agreed to plan of care. documented in this encounter Plan of Treatment Not on filedocumented as of this encounter Visit Diagnoses Diagnosis Radiation injury of brain - Primary Intracranial injury of other and unspeci fied nature, without mention of open intracranial wound, unspecified state of consciousness documented in this encounter Care Teams Security Researcher Relationship Specialty Start Date End Date Michela Stevenson APRN PCP - General 04/29/10 06/07/16 documented as of this encounter
--- OUTSIDE RECORDS SUMMARY | 2022-05-06 08:20 | XMS_ITS | Encounter Summary ---
:1960 Author Organization [facility] [place] [address] Care Team Providers Name Role Phone Michela Stevenson [place] Primary Care Provider Encounter Details Date Type Department Care Team Description 11/16/2012 Hospital Encounter MRI at [facility], DR [facility] Scott Lang MD [facility] [place] [address] [place] [address] Social History Tobacco Use Types Packs/Day [...] mouth daily. documented as of this encounter Miscellaneous Notes Miscellaneous - Provider, Scanning - 11/23/2012 10:57 PM EDT documented in this encounter Plan of Treatment Not on filedocumented as of this encounter Procedures Procedure Name Priority Date/Time Associated Diagnosis Comme nts MRI LUMBAR SPINE Routine 11/16/2012 12:40 PM Resu lts for this WITHOUT CONTRAST EDT procedure a re in the results section. documented in this encounter Results MRI lumbar spine without contrast (11/16/2012 12:40 PM EDT) Anatomical Region Laterality Modality L-spine Magnetic Resonance Specimen (Source) Anatomical Collection Method Collection Time Re ceived Time Location / / Volume Laterality 11/16/2012 12:40 PM EDT Narrative 11/16/2012 1:04 PM EDT Examination MR Lumbar Spine WO Clinical History Hx of spine pain and left leg Symptoms, Hx of CANCER R/O lumbar stenosis Comparison Comparison is made to the prior MRI perf ormed May 21, 2009. Technique Noncontrast MRI of the lumbar spine. Findings There is straightening of the lumbar spi ne with grade 1 anterolisthesis of L4 on L5. ??Degenerative disc changes are m ost pronounced from L2-3 through L5-S1. ?? The conus appears unremarkable. There is no worrisome bone marrow signal intensity. T12-L1: ??There is no canal or foraminal stenosis. L1-L2: ??There is no canal or foraminal stenosis. L2-L3: ??There is a left foraminal disc protrusion with accompanying annular tear. ??There is mild foraminal narrowin g. ??The disc abuts the exiting left L2 nerve root. Facet arthropathy is noted. L3-L4: ??There is moderate facet degener ative change. ??There is a broad disc bulge. L4-L5: ??There is mild to moderate narro wing of the central canal. ??There is moderate foraminal narrowing bilaterally with facet arthropathy. L5-S1: ??There is facet degenerative medardo nge and a broad posterior disc and osteophyte complex. ??There is moderate to severe left foraminal stenosis. ??A small central disc protrusion is noted. Impression ? 1. Left foraminal stenosis at L5- S1. ? 2. Degenerative spondylolisthesis at L4-L5 resulting in moderate bilateral foraminal narrowing. ? 3. Lesser degrees of degenerative changes of the levels. ? 4. Small left foraminal protrusio n at L2-L3. ? 5. When compared with the prior s tudy, the protrusion into the foramina at L2-L3 is new. ??The degree of spondyloli sthesis at L4-L5 is slightly more. ??The degree of foraminal narrowing on the lef t at L5-S1 is increased as well. Procedure Note Richardson Moya MD - 11/16/2012Forma tting of this note might be different from the original. Examination MR Lumbar Spine WO Clinical History Hx of spine pain and left leg Symptoms, Hx of CANCER R/O lumbar stenosis Comparison Comparison is made to the prior MRI perf ormed May 21, 2009. Technique Noncontrast MRI of the lumbar spine. Findings There is straightening of the lumbar spi ne with grade 1 anterolisthesis of L4 on L5. Degenerative disc changes are mos t pronounced from L2-3 through L5-S1. The conus appears unremarkable. There is no worrisome bone marrow signal intensity. T12-L1: There is no canal or foraminal s tenosis. L1-L2: There is no canal or foraminal st enosis. L2-L3: There is a left foraminal disc pr otrusion with accompanying annular tear. There is mild foraminal narrowing. The disc abuts the exiting left L2 nerve root. Facet arthropathy is noted. L3-L4: There is moderate facet degenerat harrison change. There is a broad disc bulge. L4-L5: There is mild to moderate narrowi ng of the central canal. There is moderate foraminal narrowing bilaterally with facet arthropathy. L5-S1: There is facet degenerative molina e and a broad posterior disc and osteophyte complex. There is moderate to severe left foraminal stenosis. A small central disc protrusion is noted. Impression 1. Left foraminal stenosis at L5-S1. 2. Degenerative spondylolisthesis at L4 -L5 resulting in moderate bilateral foraminal narrowing. 3. Lesser degrees of degenerative molina es of the levels. 4. Small left foraminal protrusion at L 2-L3. 5. When compared with the prior study, the protrusion into the foramina at L2-L3 is new. The degree of spondylolist hesis at L4-L5 is slightly more. The degree of foraminal narrowing on the lef t at L5-S1 is increased as well. Isabelle Gruber APRN IMG MRI ORDERABLES documented in this encounter Visit Diagnoses Not on filedocumented in this encounter Care Teams Occupational Therapy Director Relationship Specialty Start Date End Date Michela Stevenson APRN PCP - General 04/29/10 06/07/16 documented as of this encounter
--- OUTSIDE RECORDS SUMMARY | 2022-05-06 08:20 | XMS_ITS | Encounter Summary ---
:1960 Author Organization [facility] [place] [address] Care Team Providers Name Role Phone Stevenson, Michela Stanley APRN Primary Care Provider Reason for Visit Reason Comments On Treatment Visit HBOT #2 Encounter Details Date Type Department Care Team Description 10/11/2012 Office Visit [facility] at [facility] (Primary Dx) [place] [phone] Social History Tobacco Use Types Packs/Day Years Used Date Smoking Tobacco: Every Day Cigarettes 0.3 37 L ast attempted to quit: 05/21/2010 Smokeless Tobacco: Never Comments: 3 cigarettes a day Alcohol Use Standard Drinks/Week Comments Yes 0 (1 standard drink = 0.6 oz pure alcoho l) very rare Sex Assigned at Date Recorded Not on file documented as of this encounter Last Filed Vital Signs Vital Sign Reading Time Taken Comments Blood Pressure 118/88 10/11/2012 11:00 AM EDT Pulse 65 10/11/2012 11:00 AM EDT Temperature 36.8 ??C (98.2 ??F) 10/11/2012 9:35 AM EDT Respiratory Rate 18 10/11/2012 11:00 AM EDT Oxygen Saturation - - Inhaled Oxygen Concentration - - Weight - - Height - - Body Mass Index - - documented in this encounter Progress Notes Meghan Durham APRN - 10/11/2012 9:53 AM EDT Subjective: Patient ID: Shraddha Chavez [...] necrosis. There is extensive surrounding vasogenic edema. She was referred for a hyperbaric oxygenconsultation to determine if this would be a reasonable choice to treat her symptoms. 10/10/12: Hyperbaric oxygen treatments initiated. 10/11/12:Ms. Chavez reports an increase in allergy symptoms overnight. Review of Systems Constitutional: Negative for fever, chills and appetite change. HENT: Positive for rhinorrhea and sneezing. Negative for ear pain, congestion and ear discharge. [Ms. Chavez reports allergy symptoms overnight. Eyes: Positive for itching. [Itching eye R/T allergies. Respiratory: Negative for cough and shortness of breath. Musculoskeletal: Negative. Skin: Negative. Neurological: Negative for speech difficulty and headaches. Objective: Physical Exam Constitutional: She is oriented [...] She has a normal mood and affect. Hudson Making Test performed: Part A- 19.78 seconds Part B- 1 minute and 1.04 seconds Peg (9 hole) Board Test - Right (dominant) hand-19.53 seconds Left (non-dominant) hand- 17.07 seconds Assessment and Plan: INTERVAL HISTORY: Visual Change: Denies SOB: Denies Headaches: Denies Cough:Denies Ear Pain:Denies Chest Pain: Denies Cold symptoms:Denies Shraddha Chavez received hyperbaric oxygen treatment today for adverse effects of radiation. 400 IU vitamin E taken before treatment. Chamber settings checked via checklist. Patient placed in chamber, communications checked, and ground strap attached. Chamber flushed with 100% O2 and then taken to depth at 5 feet/minute. Meghan Durham APRN Administered the treatment and monitored the patient. HYPERBARIC TREATMENT: Number-2 Planned number of treatments-40 Compression Rate:1.5 Decompression Rate:2.0 ALMAZ-2.0 Treatment Time- 60 minutes Chamber time- 80 Minutes- Sechrist Chamber Education/Instruction: Clearing of ears: Reviewed techniques Smoking cessation: Reinforced importance of smoking cessation. Treatment Notes: Ms. Chavez did experience a sense of pressure to left side of head lasting a few seconds. Overall, Ms. Chavez tolerated treatment well today to 2.0 ALMAZ for 60 minutes. Will continue to increase pressure and treatment time as tolerated to a goal of 2.4 ALMAZ for 90 minutes. documented in this encounter Plan of Treatment Not on filedocumented as of this encounter Visit Diagnoses Diagnosis Radiation injury of brain - Primary Intracranial injury of other and unspeci fied nature, without mention of open intracranial wound, unspecified state of consciousness documented in this encounter Care Teams Manager Test Relationship Specialty Start Date End Date Michela Stevenson APRN PCP - General 04/29/10 06/07/16 documented as of this encounter
--- OUTSIDE RECORDS SUMMARY | 2022-05-06 08:20 | XMS_ITS | Encounter Summary ---
:1960 Author Organization [facility] [place] [address] Care Team Providers Name Role Phone Stevenson, Michela Stanley APRN Primary Care Provider Reason for Visit Reason Comments On Treatment Visit HBOT #5 Encounter Details Date Type Department Care Team Description 10/14/2012 Office Visit [facility] [place] [facility] [place] [place] [phone] Social History Tobacco Use Types Packs/Day [...] Sign Reading Time Taken Comments Blood Pressure 113/72 10/14/2012 11:25 AM EDT Pulse 68 10/14/2012 11:25 AM EDT Temperature 36.8 ??C (98.3 ??F) 10/14/2012 9:20 AM EDT Respiratory Rate 18 10/14/2012 11:25 AM EDT Oxygen Saturation - - Inhaled Oxygen Concentration - - Weight - - Height - - Body Mass Index - - documented in this encounter Progress Notes Meghan Durham APRN - 10/14/2012 9:53 AM EDT Subjective: Patient ID: Shraddha Chavez is a 52 y.o. female. HPI;Ms. Chavez is a 52 yo woman with [...] oxygen treatments initiated for post radiation injury. 10/14/12:Ms. Chavez reports having an episode of nearly 'passing out' yesterday afternoon. Symptoms began with a sense of pressure to left side of head and lasted for approximately one minute. Review of Systems Constitutional: Negative for fever, chills and appetite change. HENT: Positive for rhinorrhea and sneezing. Negative for ear pain, congestion and ear discharge. Allergy symptoms have lessened. Eyes: Negative for visual disturbance. Respiratory: Negative for cough and shortness of breath. Gastrointestinal: Negative for nausea and vomiting. Skin: Negative. Neurological: She reports having an episode of nearly passing out' yesterday afternoon. Psychiatric/Behavioral: Negative. Objective: Physical Exam Constitutional: She [...] Pain: Denies Chest Pain: Denies Cold symptoms:Denies Other: She had an episode of nearly passing out yesterday. Shraddha Chavez received hyperbaric oxygen treatment today for adverse effects of radiation. 400 IU vitamin E taken before treatment. Chamber settings checked via checklist. Patient placed in chamber, communications checked, and ground strap attached. Chamber flushed with 100% O2 and then taken to depth at 5 feet/minute. Meghan Durham APRN Administered the treatment and monitored the patient. HYPERBARIC TREATMENT: Number-5 Planned number of treatments-40 Pre Treatment Glucose: 88 MG/DL Compression Rate:1.5 Decompression Rate:2.0 ALMAZ-2.0 Treatment Time- 90 minutes Chamber time- 116 Minutes- Sechrist Chamber Air Breaks-One 10 minute air break Education/Instruction: Clearing of ears: Reviewed techniques Smoking cessation: Reinforced importance of smoking cessation. Treatment Notes: Ms. Chavez tolerated treatment well today to 2.0 ALMAZ. She did not experience any symptoms of pressure to left of head during pressurization. Blood sugar pre HBOT was 88 mg/dl. One glucose table was given pre HBOT and 2 tablets post HBO. Plan: Will resume HBOT on 10/17/12. Will plan to recheck blood sugar pre and post HBOT. Uncertian if sensation of nearly passing out associated with low blood sugar. She has a history of low blood sugarand hyperbaric treatment will also lower blood sugar level. Will monitor closely to see if there is a pattern associated with HBOT. documented in this encounter Plan of Treatment Not on filedocumented as of this encounter Procedures Procedure Name Priority Date/Time Associated Diagnosis Comme nts POCT GLUCOSE Routine 10/14/2012 9:44 AM Results f or this EDT procedure are i n the results section . documented in this encounter Results POCT Glucose (10/14/2012 9:44 AM EDT) athologist Signature POC Glucose 88 60 - 199 CERNER mg/dL [facility] Comment: Supplemental ranges: <110 mg/dL before meals <200 mg/dL all other times of the day Specimen Anatomical Collection Method Collection Time Receive d Time (Source) Location / / Volume Laterality Blood specimen 10/14/2012 9:44 AM 013 9:44 (specimen) EDT AM EDT Dr Sree Foley MD POINT OF CARE TEST ORDERABLE S Performing Organization Address City/State/[place] [address] [facility] documented in this encounter Visit Diagnoses Diagnosis Radiation injury of brain - Primary Intracranial injury of other and unspeci fied nature, without mention of open intracranial wound, unspecified state of consciousness documented in this encounter Care Teams Boat Outfitting Supervisor Relationship Specialty Start Date End Date Michela Stevenson APRN PCP - General 04/29/10 06/07/16 documented as of this encounter
--- OUTSIDE RECORDS SUMMARY | 2022-05-06 08:20 | XMS_ITS | Encounter Summary ---
:1960 Author Organization [facility] [place] [address] Care Team Providers Name Role Phone Graham Michela Stanley APRN Primary Care Provider Reason for Visit Reason Comments On Treatment Visit HBOT #18 Encounter Details Date Type Department Care Team Description 11/08/2012 Office Visit [facility] for [facility]ic Radiat ion injury of brain Medicine at [facility] (Primary Dx) [place] [phone] Social History Tobacco Use Types Packs/Day [...] Sign Reading Time Taken Comments Blood Pressure 124/79 11/08/2012 11:05 AM EDT Pulse 60 11/08/2012 11:05 AM EDT Temperature 36.9 ??C (98.4 ??F) 11/08/2012 9:15 AM EDT Respiratory Rate 18 11/08/2012 11:05 AM EDT Oxygen Saturation - - Inhaled Oxygen Concentration - - Weight - - Height - - Body Mass Index - - documented in this encounter Progress Notes Meghan Durham APRN - 11/08/2012 9:51 AM EDT Subjective: Patient ID: Shraddha Chavez is a 52 y.o. female. HPI::Ms. 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 10/10/12: Hyperbaric oxygen treatments initiated for post radiation injury. 11/08/12: Ms Chavez reports left sided head pain and pressure last night. She has been self treating with Ibuprofen 800mg. Review of Systems Constitutional: Negative for fever, chills and appetite change. HENT: Negative for ear pain, congestion and sinus pressure. Eyes: Positive for visual disturbance. Ms Chavez reports visual changes with the left sided head pain and pressure. Respiratory: Negative for cough and shortness of breath. Cardiovascular: Negative for chest pain. Skin: Negative. Neurological: Left sided head pressure and pain last evening. Psychiatric/Behavioral: Anxious at times. Objective: Physical Exam HENT: Right Ear: External ear normal. Left Ear: External ear normal. TMs intact bilaterally with slight erythema. Eyes: Right eye exhibits no discharge. Left eye exhibits no discharge. Cardiovascular: Normal rate. Pulmonary/Chest: No respiratory distress. Neurological: She is alert. Skin: Skin is warm and dry. She is not diaphoretic. Psychiatric: Slightly anxious today. Assessment and Plan: INTERVAL HISTORY: Visual Change: She reports visual changes with head pain SOB: Denies Headaches: Left sided head pressure and pain Cough:Denies Ear Pain: Denies Chest Pain: Denies Cold symptoms:Denies Other:Left sided head pressure and pain last evening. Shraddha Chavez received hyperbaric oxygen treatment today for adverse effects of radiation. 400 IU vitamin E taken before treatment. Chamber settings checked via checklist. 100% cotton clothing in place, patient checked for non-approved chamber items. Patient placed in chamber, ground strap placed and grounding verified, communications checked. Meghan Durham APRN/Amy Peterson RN Administered the treatment and monitored the patient. HYPERBARIC TREATMENT: Number-18 Planned number of treatments-40 Compression Rate:1.5 Decompression Rate:2.0 ALMAZ-2.0 Treatment Time- 76 minutes Chamber time-86 Minutes- Sechrist Chamber Air Breaks-One 10 minute air break Education/Instruction: Smoking cessation:No longer using nicotine patches. Reinforced importance of smoking cessation. Treatment Notes: Treatment was initiated at 9:20am. 4 minutes into the treatment with ALMAZ at 1.3, Ms. Chavez developed severe left sided head pressure and pain. She rated the pain at a level 10 on a scale of 1-10.Pressure was held at 1.3 for several minutes. Patient was asked if she would would like to stop treatment and she agreed. Patient was decompressed and brought out at 9:30am. Blood pressure was re-checked at 126/76, P-66. Left sided head pressure and pain symptoms resolved after 10 minutes. Ms. Chavez asked to resume treatment. Grounding was re-established and patient was placed in the chamber. She was initially bought to 1.5 ALMAZ and monitored closely. Symptoms did not return and pressure was increased to 2.0 ALMAZ which she tolerated well, no further head pain and pressure symptoms. Ms. Chavez tolerated a total treatment time of 76 minutes with a total chamber time of 86 minutes. Will plan to resume HBOT on 11/09/12 as scheduled. Will forward a note to her Oncology practitioner regarding above symptoms. documented in this encounter Plan of Treatment Not on filedocumented as of this encounter Visit Diagnoses Diagnosis Radiation injury of brain - Primary Intracranial injury of other and unspeci fied nature, without mention of open intracranial wound, unspecified state of consciousness documented in this encounter Care Teams Forestry Professor Relationship Specialty Start Date End Date Michela Stevenson APRN PCP - General 04/29/10 06/07/16 documented as of this encounter
--- OUTSIDE RECORDS SUMMARY | 2022-05-06 08:20 | XMS_ITS | Encounter Summary ---
:1960 Author Organization [facility] [place] [address] Care Team Providers Name Role Phone Michela Stevenson [place] Primary Care Provider Reason for Visit Reason Onset Date Comments Dizziness 09/20/2012 Encounter Details Date Type Department Care Team Description 09/20/2012 Telephone Hematology Oncology at [facility] [address] [phone] Social History Tobacco Use [...] this encounter Miscellaneous Notes Telephone Encounter - Precious Ibanez RN - 09/20/2012 9:26 AM EDT Patient called to request a visit with Domonique James on . She states that in last 2 days she is having increased dizziness - ???feeling like I am going to pass out?? . She denies actually passingout, states she continues to have a headache (which she states is not new) and on the phone her speech sounded a bit slurred at times. She states she is awaiting the start of her hyperbaric treatments.Message to Domonique James APRN. - appointment scheduled with Domonique at her request. documented in this encounter Plan of Treatment Not on filedocumented as of this encounter Visit Diagnoses Not on filedocumented in this encounter Care Teams Automobile Mechanic Motor Relationship Specialty Start Date End Date Michela Stevenson APRN PCP - General 04/29/10 06/07/16 documented as of this encounter
--- OUTSIDE RECORDS SUMMARY | 2022-05-06 08:20 | XMS_ITS | Encounter Summary ---
:1960 Author Organization [facility] [place] [address] Care Team Providers Name Role Phone Stevenson, Michela Stanley APRN Primary Care Provider Reason for Visit Reason Comments On Treatment Visit HBOT #9 Encounter Details Date Type Department Care Team Description 10/20/2012 Office Visit [facility] for Hyperbaric Radiat ion injury of brain Medicine at [facility] [place] (Primary Dx) [place] [phone] Social History Tobacco Use Types Packs/Day [...] Sign Reading Time Taken Comments Blood Pressure 119/58 10/20/2012 11:05 AM EDT Pulse 66 10/20/2012 11:05 AM EDT Temperature 36.8 ??C (98.3 ??F) 10/20/2012 9:20 AM EDT Respiratory Rate 18 10/20/2012 11:05 AM EDT Oxygen Saturation - - Inhaled Oxygen Concentration - - Weight - - Height - - Body Mass Index - - documented in this encounter Progress Notes Meghan Durham APRN - 10/20/2012 9:30 AM EDT Subjective: Patient ID: Shraddha Chavez [...] oxygen treatments initiated for post radiation injury. 10/20/12:Ms. Chavez reports no left sided head pressure last evening. Review of Systems Constitutional: Negative for fever, chills and appetite change. HENT: Negative for congestion, sore throat, sneezing, sinus pressure and ear discharge. Left ear stuffiness. Eyes: Negative for visual disturbance. Respiratory: Negative for shortness of breath and wheezing. Gastrointestinal: Negative for nausea and vomiting. Musculoskeletal: Negative for gait problem. Skin: Negative. Psychiatric/Behavioral: Slightly anxious at times. Objective: Physical Exam Constitutional: She is oriented to person, place, and time. No distress. HENT: Right Ear: External ear normal. Left Ear: External ear normal. Erythema to ear canals bilaterally, TMs intact with no erythema. Cardiovascular: Normal rate and regular rhythm. Pulmonary/Chest: Effort normal. No respiratory distress. Neurological: She is alert and oriented to person, place, and time. Skin: Skin is warm and dry. She is not diaphoretic. Psychiatric: She has a normal mood and affect. Assessment and Plan: INTERVAL HISTORY: Visual Change: Denies SOB: Denies Headaches:Left side of head pain intermittently , none last evening Cough:Denies Ear Pain: Left ear stuffiness Chest Pain: Denies Cold symptoms:Denies Shraddha Chavez received hyperbaric oxygen treatment today for adverse effects of radiation. 400 IU vitamin E taken before treatment. Chamber settings checked via checklist. Patient placed in chamber, communications checked, and ground strap attached. Meghan Durham APRN/Amy Peterson RN Administered the treatment and monitored the patient. HYPERBARIC TREATMENT: Number-9 Planned number of treatments-40 Compression Rate:1.5 Decompression Rate:2.0 ALMAZ-2.0 Treatment Time- 90 minutes Chamber time- 116 Minutes- Sechrist Chamber Air Breaks-One 10 minute air break Education/Instruction: Clearing of ears: Reviewed techniques Smoking cessation: Reinforced smoking cessation Treatment Notes: Ms. Chavez tolerated treatment well today. Continue HBOT as scheduled. documented in this encounter Plan of Treatment Not on filedocumented as of this encounter Visit Diagnoses Diagnosis Radiation injury of brain - Primary Intracranial injury of other and unspeci fied nature, without mention of open intracranial wound, unspecified state of consciousness documented in this encounter Care Teams Client Server Programmer Relationship Specialty Start Date End Date Michela Stevenson APRN PCP - General 04/29/10 06/07/16 documented as of this encounter
--- OUTSIDE RECORDS SUMMARY | 2022-05-06 08:20 | XMS_ITS | Encounter Summary ---
:1960 Author Organization [facility] [place] [address] Care Team Providers Name Role Phone Graham Michela Stanley APRN Primary Care Provider Reason for Visit Reason Comments On Treatment Visit HBOT #32 Encounter Details Date Type Department Care Team Description 11/30/2012 Office Visit [facility] Rad[facility] ion injury of brain Medicine at [facility] (Primary Dx) [place] [address] Social History Tobacco Use Types Packs/Day [...] Sign Reading Time Taken Comments Blood Pressure 133/79 11/30/2012 9:52 AM EDT Pulse 67 11/30/2012 9:52 AM EDT Temperature 36.8 ??C (98.2 ??F) 11/30/2012 8:08 AM EDT Respiratory Rate 18 11/30/2012 9:52 AM EDT Oxygen Saturation - - Inhaled Oxygen Concentration - - Weight - - Height - - Body Mass Index - - documented in this encounter Progress Notes Meghan Durham APRN - 11/30/2012 8:09 AM EDT Subjective: Patient ID: Shraddha Chavez is a 52 y.o. female. HPI: Ms. Chavez is a 52 yo woman with [...] oxygen treatments initiated for post radiation injury. 11/30/12: Ms. Chavez reports A slight headache this am. Review of Systems Constitutional: Negative for fever, chills and appetite change. HENT: Negative for ear pain, congestion, sinus pressure and ear discharge. Respiratory: Negative for shortness of breath. Skin: Negative. Psychiatric/Behavioral: Slightly anxious today. Objective: Physical Exam Constitutional: She is oriented to person, place, and time. No distress. HENT: Right Ear: External ear normal. Left Ear: External ear normal. TMs intact bilaterally with no erythema. Cardiovascular: Normal rate. Pulmonary/Chest: Effort normal. No respiratory distress. Neurological: She is alert and oriented to person, place, and time. Skin: Skin is warm and dry. She is not diaphoretic. Psychiatric: She has a normal mood and affect. Assessment and Plan: INTERVAL HISTORY: Visual Change: Denies SOB: Denies Headaches: Slight headache today. Cough: Denies Ear Pain: Denies Chest Pain: Denies Cold symptoms:Denies Shraddha Chavez received hyperbaric oxygen treatment today for adverse effects of radiation. 400 IU vitamin E taken before treatment. 100% cotton clothing in place. Patient checked for non-approved chamber items. Grounding strap applied and grounding verified,patient placed in chamber,communications checked. Meghan Durham APRN/Amy Peterson RN Administered the treatment and monitored the patient. HYPERBARIC TREATMENT: Number-32 Planned number of treatments-40 Compression Rate: 1.5 Decompression Rate:2.0 ALMAZ-2.4 Treatment start time:8:10AM Treatment Time- 90 minutes Chamber time-118 Minutes- [facility] Chamber Air Breaks-One 10 minute air break Treatment Notes: Ms. Chavez tolerated treatment well today. No new symptoms in the interim. Continue HBOT as scheduled to 40 treatments. documented in this encounter Plan of Treatment Not on filedocumented as of this encounter Visit Diagnoses Diagnosis Radiation injury of brain - Primary Intracranial injury of other and unspeci fied nature, without mention of open intracranial wound, unspecified state of consciousness documented in this encounter Care Teams Tin Stacker Relationship Specialty Start Date End Date Michela Stevenson APRN PCP - General 04/29/10 06/07/16 documented as of this encounter
--- OUTSIDE RECORDS SUMMARY | 2022-05-06 08:20 | XMS_ITS | Encounter Summary ---
:1960 Author Organization [facility] [place] [address] Care Team Providers Name Role Phone Stevenson, Michela Stanley APRN Primary Care Provider Reason for Visit Reason Comments On Treatment Visit HBOT #13 Encounter Details Date Type Department Care Team Description 10/27/2012 Office Visit [facility] for Hyperbaric Radiat ion injury of brain Medicine at [facility] (Primary Dx) [place] [address] Social History Tobacco Use Types Packs/Day [...] Sign Reading Time Taken Comments Blood Pressure 117/53 10/27/2012 11:00 AM EDT Pulse 62 10/27/2012 11:00 AM EDT Temperature 37.2 ??C (98.9 ??F) 10/27/2012 9:15 AM EDT Respiratory Rate 18 10/27/2012 11:00 AM EDT Oxygen Saturation - - Inhaled Oxygen Concentration - - Weight - - Height - - Body Mass Index - - documented in this encounter Progress Notes Meghan Durham APRN - 10/27/2012 10:04 AM EDT Subjective: Patient ID: Shraddha Chavez [...] oxygen treatments initiated for post radiation injury. 10/27/12:Ms. Chavez reports no left sided head pressure last evening. Review of Systems Constitutional: Negative for fever, chills and appetite change. HENT: Negative for ear pain, congestion and ear discharge. Ms Chavez reports left side head pressure last evening. Respiratory: Negative for cough and shortness of breath. Cardiovascular: Negative. Musculoskeletal: Occasional arthralgias. Skin: Negative. Neurological: Left side head pressure. Psychiatric/Behavioral: Negative. Objective: Physical Exam Constitutional: She [...] Visual Change: Denies SOB: Denies Headaches: Denies Cough: Denies Ear Pain: Denies Chest Pain: Denies Cold symptoms:Denies Shraddha Chavez received hyperbaric oxygen treatment today for adverse effects of radiation. 400 IU vitamin E taken before treatment. Chamber settings checked via checklist. Patient placed in chamber, communications checked, and ground strap attached. Meghan Durham APRN/Amy Peterson RN Administered the treatment and monitored the patient. HYPERBARIC TREATMENT: Number-13 Planned number of treatments-40 Compression Rate:1.5 Decompression Rate:2.0 ALMAZ-2.0 Treatment Time-90 minutes Chamber time- 116 Minutes- [facility] Chamber Air Breaks-One 10 minute air break Education/Instruction: Smoking cessation: Currently utilizing the nicotine patch Treatment Notes: Ms. Chavez did report left head pressure during treatment today but was able to complete her treatment. Her providers are aware of the ongoing symptoms. She has had lef sideed head pressure for a long period of time and symptoms are not of new onset. Will continue HBOT as scheduled. documented in this encounter Plan of Treatment Not on filedocumented as of this encounter Visit Diagnoses Diagnosis Radiation injury of brain - Primary Intracranial injury of other and unspeci fied nature, without mention of open intracranial wound, unspecified state of consciousness documented in this encounter Care Teams Meat Counter Worker Relationship Specialty Start Date End Date Michela Stevenson APRN PCP - General 04/29/10 06/07/16 documented as of this encounter
--- OUTSIDE RECORDS SUMMARY | 2022-05-06 08:20 | XMS_ITS | Encounter Summary ---
:1960 Author Organization [facility] [place] [address] Care Team Providers Name Role Phone Luz Stevensonmaurice Stanley APRN Primary Care Provider Reason for Visit Reason Comments On Treatment Visit HBOT #20 Encounter Details Date Type Department Care Team Description 11/10/2012 Office Visit [facility] Radiat [facility] [place] [facility] [place] [address] Social History Tobacco Use Types Packs/Day [...] Reading Time Taken Comments Blood Pressure 127/80 11/10/2012 9:50 AM EDT Pulse 64 11/10/2012 9:50 AM EDT Temperature 37.2 ??C (98.9 ??F) 11/10/2012 8:10 AM EDT Respiratory Rate - - Oxygen Saturation - - Inhaled Oxygen Concentration - - Weight - - Height - - Body Mass Index - - documented in this encounter Progress Notes Amy Peterson RN - 11/10/2012 9:57 AM EDT Shraddha Chavez received hyperbaric oxygen treatment today for radiation injury to the brain. 400 IU vitamin E taken before treatment. 100% cotton clothing in place. Patient checked for non-approved chamber items. Grounding strap applied and grounding verified,patient placed in chamber,communications checked. Meghan Durham APRN/Amy Peterosn RN Administered the treatment and monitored the patient. HYPERBARIC TREATMENT: Number- 20 Planned number of treatments- 40 Compression Rate: 1.5 psi/min Decompression Rate: 2.0psi/min ALMAZ- 2.0 Treatment Time- 90 minutes Chamber time- 116 Minutes- [facility] Chamber Air Breaks-One 10 minute air break Treatment Notes: Tolerated HBOT well, no issues during treatment. TMs appear normal, both ear canalsare slightly red. Shraddha states the Left side is slightly tender and that she has not been digging in her ears. Continue HBOT as planned. documented in this encounter Plan of Treatment Not on filedocumented as of this encounter Visit Diagnoses Diagnosis Radiation injury of brain - Primary Intracranial injury of other and unspeci fied nature, without mention of open intracranial wound, unspecified state of consciousness documented in this encounter Care Teams Intelligence Applications Relationship Specialty Start Date End Date Michela Stevenson APRN PCP - General 04/29/10 06/07/16 documented as of this encounter
--- OUTSIDE RECORDS SUMMARY | 2022-05-06 08:20 | XMS_ITS | Encounter Summary ---
:1960 Author Organization [facility] [place] [address] Care Team Providers Name Role Phone Michela Stevenson [place] Primary Care Provider Reason for Visit Reason Comments On Treatment Visit HBOT #10 Encounter Details Date Type Department Care Team Description 10/24/2012 Office Visit [facility] for Hyperbaric Radiat ion injury of brain Medicine at [facility] (Primary Dx) [place] [address] Social History Tobacco Use Types Packs/Day [...] Sign Reading Time Taken Comments Blood Pressure 114/74 10/24/2012 11:20 AM EDT Pulse 68 10/24/2012 11:20 AM EDT Temperature 37.2 ??C (99 ??F) 10/24/2012 9:30 AM EDT Respiratory Rate - - Oxygen Saturation - - Inhaled Oxygen Concentration - - Weight - - Height - - Body Mass Index - - documented in this encounter Progress Notes Amy Peterson RN - 10/24/2012 11:44 AM EDT INTERVAL HISTORY: since October 20, 2012 Visual Change:denies SOB: denies Headaches:continues to have the pain/pressure she has had in her head since before starting HBOT. She is hoping that HBOT will lessen these episodes. Reviewed with her that HBOT is a slow process and she is still early in the process. Cough: denies Ear Pain: denies Chest Pain:denies Cold symptoms:denies Shraddha Chavez received hyperbaric oxygen treatment today for adverse effects of radiation in the brain. 400 IU vitamin E taken before treatment. Chamber settings checked via checklist. Patient placed in chamber, communications checked, and ground strap attached. Chamber flushed with 100% O2. Amy Peterson RN Administered the treatment and monitored the patient. HYPERBARIC TREATMENT: Number- 10 Planned number of treatments- 40 Compression Rate: 1.5psi/min Decompression Rate:2.0psi/min ALMAZ-2.0 Treatment Time- 90 minutes Chamber time- 116 Minutes- [facility] Chamber Air Breaks-One 10 minute air break Education/Instruction: Smoking cessation - Shraddha reports that she has stopped smoking and is very pleased with this. Reinforced that this is a very good thing and that the HBOTs will be more beneficial that she is not smoking. Treatment Notes: Tolerated HBOT well, no issues during treatment. TMs appear normal. Continue HBOT as planned. Continue to stress the importance of not smoking and praise her for not smoking. Continue to help her understand that HBOT is a slow process. documented in this encounter Plan of Treatment Not on filedocumented as of this encounter Visit Diagnoses Diagnosis Radiation injury of brain - Primary Intracranial injury of other and unspeci fied nature, without mention of open intracranial wound, unspecified state of consciousness documented in this encounter Care Teams Steamship Agent Relationship Specialty Start Date End Date Michela Stevenson APRN PCP - General 04/29/10 06/07/16 documented as of this encounter
--- OUTSIDE RECORDS SUMMARY | 2022-05-06 08:20 | XMS_ITS | Encounter Summary ---
:1960 Author Organization [facility] [place] [address] Care Team Providers Name Role Phone rGaham Michela Stanley APRN Primary Care Provider Reason for Visit Reason Comments On Treatment Visit HBOT #12 Encounter Details Date Type Department Care Team Description 10/26/2012 Office Visit [facility] for Hyperbaric Radiat ion injury of brain Medicine at [facility] [place] (Primary Dx) [place] [address] Social History Tobacco Use Types Packs/Day [...] Sign Reading Time Taken Comments Blood Pressure 134/58 10/26/2012 11:06 AM EDT Pulse 63 10/26/2012 11:06 AM EDT Temperature 37.3 ??C (99.2 ??F) 10/26/2012 9:27 AM EDT Respiratory Rate 18 10/26/2012 11:06 AM EDT Oxygen Saturation - - Inhaled Oxygen Concentration - - Weight - - Height - - Body Mass Index - - documented in this encounter Progress Notes Meghan Durham APRN - 10/26/2012 9:33 AM EDT Subjective: Patient ID: Shraddha Chavez [...] oxygen treatments initiated for post radiation injury. 10/26/12:Ms. Chavez reports no left sided head pressure today. Review of Systems Constitutional: Negative for chills, activity change and appetite change. Temp of 99.2 this AM. HENT: Negative for ear pain, congestion, sinus pressure and ear discharge. Eyes: Negative for visual disturbance. Respiratory: Negative for cough and shortness of breath. Gastrointestinal: Negative for nausea and vomiting. Skin: Negative. Psychiatric/Behavioral: Negative. Objective: Physical Exam Constitutional: She is oriented to person, place, and time. No distress. HENT: Right Ear: External ear normal. Left Ear: External ear normal. TMs intact bilaterally. Slight erythema to canals. Cardiovascular: Normal rate and regular rhythm. Pulmonary/Chest: [...] to depth at 5 feet/minute. Meghan Durham APRN/Amy Peterson RN Administered the treatment and monitored the patient. HYPERBARIC TREATMENT: Number-12 Planned number of treatments-40 Compression Rate:1.5 Decompression Rate:2.0 ALMAZ-2.0 Treatment Time-90 minutes Chamber time- 116 Minutes- Sechrist Chamber/[facility] Chamber Air Breaks-One 10 minute air break Education/Instruction: Smoking cessation: Now using a nicotine patch for smoking cessation. Treatment Notes: Ms. Chavez tolerated treatment well today. She does note generalized discomfort Post HBOT from lying still for 90 minutes. Continue HBOT as scheduled. documented in this encounter Plan of Treatment Not on filedocumented as of this encounter Visit Diagnoses Diagnosis Radiation injury of brain - Primary Intracranial injury of other and unspeci fied nature, without mention of open intracranial wound, unspecified state of consciousness documented in this encounter Care Teams Secondary Art Teacher Relationship Specialty Start Date End Date Michela Stevenson APRN PCP - General 04/29/10 06/07/16 documented as of this encounter
--- OUTSIDE RECORDS SUMMARY | 2022-05-06 08:20 | XMS_ITS | Encounter Summary ---
:1960 Author Organization [facility] [place] [address] Care Team Providers Name Role Phone Stevenson, Michela Stanley APRN Primary Care Provider Reason for Visit Reason Comments On Treatment Visit HBOT #8 Encounter Details Date Type Department Care Team Description 10/19/2012 Office Visit [facility] for Hyperbaric Radiat ion injury of brain Medicine at [place] (Primary Dx) [place] [address] Social History Tobacco Use Types Packs/Day [...] Sign Reading Time Taken Comments Blood Pressure 121/80 10/19/2012 11:12 AM EDT Pulse 65 10/19/2012 11:12 AM EDT Temperature 37.1 ??C (98.7 ??F) 10/19/2012 9:25 AM EDT Respiratory Rate 18 10/19/2012 11:12 AM EDT Oxygen Saturation - - Inhaled Oxygen Concentration - - Weight - - Height - - Body Mass Index - - documented in this encounter Progress Notes Meghan Durham APRN - 10/19/2012 9:54 AM EDT Subjective: Patient ID: Shraddha Chavez [...] oxygen treatments initiated for post radiation injury. 10/19/12:Ms. Chavez reports continued episodes of left sided head pressure last evening which interfered with sleep. Occasional nausea continues. Review of Systems Constitutional: Negative for fever and chills. Nausea occasionally. Left sided head pain last evening intermittently which continues to interfere with sleep. HENT: Negative for congestion, drooling, sinus pressure and ear discharge. Left ear stuffiness continues. Respiratory: Negative for cough and shortness of breath. Gastrointestinal: Positive for nausea. Skin: Negative. Psychiatric/Behavioral: Anxious at times. Objective: Physical Exam Constitutional: She is oriented to person, place, and time. No distress. HENT: Right Ear: External ear normal. Left Ear: External ear normal. TMs intact bilaterally, erythema bilaterally to canals. Eyes: Right eye exhibits no discharge. Left eye exhibits no discharge. Cardiovascular: Regular rhythm. Heart rate 99 post activity. Pulmonary/Chest: Effort normal. No respiratory distress. Lymphadenopathy: She has no cervical adenopathy. Neurological: She is alert and oriented to person, place, and time. Skin: Skin is warm and dry. She is not diaphoretic. Psychiatric: She has a normal mood and affect. Assessment and Plan: INTERVAL HISTORY: Visual Change: Denies SOB: Denies Headaches: Denies Cough:Denies Ear Pain: Denies Chest Pain: Denies Cold symptoms:Denies Other: Left sided head pressure last evening Shraddha Chavez received hyperbaric oxygen treatment today for adverse effects of radiation. 400 IU vitamin E taken before treatment. Chamber settings checked via checklist. Patient placed in chamber, communications checked, and ground strap attached. Meghan Durham APRN/Amy Peterson RN Administered the treatment and monitored the patient. HYPERBARIC TREATMENT: Number-8 Planned number of treatments-40 Compression Rate:1.5 Decompression Rate:2.0 ALMAZ-2.0 Treatment Time- 90 minutes Chamber time- 116 Minutes- [facility] Chamber Air Breaks-One 10 minute air break Education/Instruction: Clearing of ears: Reviewed techniques Smoking cessation; Reinforced importance of smoking cessation. Treatment Notes: Ms. Chavez tolerated treatment well today. She had no reports of left side head pain or nausea. Continue HBOT as scheduled. documented in this encounter Plan of Treatment Not on filedocumented as of this encounter Visit Diagnoses Diagnosis Radiation injury of brain - Primary Intracranial injury of other and unspeci fied nature, without mention of open intracranial wound, unspecified state of consciousness documented in this encounter Care Teams Weather Teacher Relationship Specialty Start Date End Date Michela Stevenson APRN PCP - General 04/29/10 06/07/16 documented as of this encounter
--- OUTSIDE RECORDS SUMMARY | 2022-05-06 08:20 | XMS_ITS | Encounter Summary ---
:1960 Author Organization [facility] [place] [address] Care Team Providers Name Role Phone Luz Stevensonmaurice Stanley APRN Primary Care Provider Reason for Visit Reason Comments On Treatment Visit HBOT # 22 Encounter Details Date Type Department Care Team Description 11/15/2012 Office Visit [facility] for Hyperbaric Radiat ion injury of brain Medicine at [facility] (Primary Dx) [place] [address] Social History Tobacco Use Types Packs/Day [...] Sign Reading Time Taken Comments Blood Pressure 126/72 11/15/2012 10:05 AM EDT Pulse 65 11/15/2012 10:05 AM EDT Temperature 37.1 ??C (98.7 ??F) 11/15/2012 8:15 AM EDT Respiratory Rate - - Oxygen Saturation - - Inhaled Oxygen Concentration - - Weight - - Height - - Body Mass Index - - documented in this encounter Progress Notes Amy Peterson RN - 11/15/2012 11:12 AM EDT Shraddha Chavez received hyperbaric oxygen treatment today for radiation injury to the brain. 400 IU vitamin E taken before treatment. 100% cotton clothing in place. Patient checked for non-approved chamber items. Grounding strap applied and grounding verified,patient placed in chamber,communications checked. Amy Peterson RN Administered the treatment and monitored the patient. HYPERBARIC TREATMENT: Number- 22 Planned number of treatments- 40 Compression Rate: 1.5psi/min Decompression Rate: 2.0psi/too ALMAZ- 2.0 Treatment Time- 90 minutes Chamber time- 116 Minutes- [facility] Chamber Air Breaks-One 10 minute air break Treatment Notes: Tolerated HBOT well, no issues during treatment. TMs appear normal. In a good mood today. Stated she appreciated the discussion with Dr. Biggs yesterday and feels better about things.Continue with HBOT as planned. Encourage her to keep appointments and continue with efforts to stop smoking. documented in this encounter Plan of Treatment Not on filedocumented as of this encounter Visit Diagnoses Diagnosis Radiation injury of brain - Primary Intracranial injury of other and unspeci fied nature, without mention of open intracranial wound, unspecified state of consciousness documented in this encounter Care Teams Transmission Specialist Relationship Specialty Start Date End Date Michela Stevenson APRN PCP - General 04/29/10 06/07/16 documented as of this encounter
--- OUTSIDE RECORDS SUMMARY | 2022-05-06 08:20 | XMS_ITS | Encounter Summary ---
:1960 Author Organization [facility] [place] [address] Care Team Providers Name Role Phone Michela Stevenson [place] Primary Care Provider Reason for Visit Reason Onset Date Comments Breast Pain 01/02/2013 right Encounter Details Date Type Department Care Team Description 01/02/2013 Telephone Hematology Oncology at [facility] MD Breast Pain (right) [address] [id number] [phone] Social History Tobacco Use Types Packs/Day Years Used Date Smoking Tobacco: Former Cigarettes 0.3 37 Quit : 05/21/2010 Smokeless Tobacco: Never Alcohol Use Standard Drinks/Week Comments Yes 0 (1 standard drink = 0.6 oz pure alcoho l) very rare Sex Assigned at Date Recorded Not on file documented as of this encounter Miscellaneous Notes Addendum Note - Jessica Clarke RN - 01/02/2013 5:25 PM EDT Addended by: JESSICA CLARKE on: 01/02/2013 05:25 PM Modules accepted: Orders Telephone Encounter - Jessica Clarke RN - 01/02/2013 1:21 PM EDT Shraddha calls to report a very tender right breast with a golf ball sized lump and swelling that goes under my arm which she first became aware of 4-5 days ago. She denies fever. She says the last 2 nights she has been unable to sleep because she cannot lie on her right side as it is so uncomfortable. She has not taken anything for pain. She will try Advil. Dr. Lugo consulted. Feels that she may need to see a surgeon. Her PCP and Dr. Barnhart do not have appointments available until next week. An ultrasound at [facility] will be ordered in the meantime to assess the area. The ultrasound is scheduled for 01/03/13 at 1:30 PM at [facility]. The patient had lab work done 01/02/13 at [facility] which is scanned into eD-H. The patient was called and agrees with the plan. Addendum: [facility] has no recent studies to compare the ordered ultrasound with. A study at [facility] is recommended. The patient will be seen 01/03 and assessed to determine the proper studies. documented in this encounter Plan of Treatment Not on filedocumented as of this encounter Visit Diagnoses Diagnosis HX: breast cancer - Primary Personal history of malignant neoplasm o f breast documented in this encounter Care Teams Truck Safety Inspector Relationship Specialty Start Date End Date Michela Stevenson APRN PCP - General 04/29/10 06/07/16 documented as of this encounter
--- OUTSIDE RECORDS SUMMARY | 2022-05-06 08:20 | XMS_ITS | Encounter Summary ---
:1960 Author Organization [facility] [place] [address] Care Team Providers Name Role Phone Graham Michela Jaden [place] Primary Care Provider Encounter Details Date Type Department Care Team Description 10/21/2012 Telephone Radiation Oncology at Domonique Pratt APRN [address] [place] [address] [place], [place] [id number] (Wo rk) Social History Tobacco Use Types [...] Telephone Encounter - Domonique James APRN - 10/21/2012 4:02 PM EDT Call from patient indicating that she has been having pressure involving the left side of her head. She is undergoing hyperbaric oxygen therapy. She does not take ibuprofen regularly for her headaches though this does help. We discussed that the effects of hyperbaric oxygen therapy will take a long time and that we will bedoing a repeat MRI about 8 weeks after she completes therapy. She is encouraged to use her ibuprofenfor discomfort. Support provided documented in this encounter Plan of Treatment Not on filedocumented as of this encounter Visit Diagnoses Not on filedocumented in this encounter Care Teams Decorating Supervisor Relationship Specialty Start Date End Date Michela Stevenson APRN PCP - General 04/29/10 06/07/16 documented as of this encounter
--- OUTSIDE RECORDS SUMMARY | 2022-05-06 08:20 | XMS_ITS | Encounter Summary ---
:1960 Author Organization [facility] [place] [address] Care Team Providers Name Role Phone Michela Stevenson [place] Primary Care Provider Encounter Details Date Type Department Care Team Description 11/17/2012 Hospital Encounter Nuclear Medicine at CLINIC, Scott Victor MD [facility] [place] [address] [place] [address] Social History Tobacco Use Types Packs/Day [...] on filedocumented in this encounter Care Teams Casing Mixer Relationship Specialty Start Date End Date Michela Stevenson APRN PCP - General 04/29/10 06/07/16 documented as of this encounter
--- OUTSIDE RECORDS SUMMARY | 2022-05-06 08:20 | XMS_ITS | Encounter Summary ---
:1960 Author Organization [facility] [place] [address] Care Team Providers Name Role Phone Michela Stevenson [place] Primary Care Provider Reason for Visit Reason Comments Breast Cancer Encounter Details Date Type Department Care Team Description 01/05/2013 Follow-Up Hematology Oncology at Bang Lugo MD Breast CA (Primary Dx) [address] [id number] [phone] Social History Tobacco Use Types Packs/Day Years [...] Sign Reading Time Taken Comments Blood Pressure 124/75 01/05/2013 8:56 AM EDT Pulse 68 01/05/2013 8:56 AM EDT Temperature 36.8 ??C (98.2 ??F) 01/05/2013 8:56 AM EDT Respiratory Rate 18 01/05/2013 8:56 AM EDT Oxygen Saturation 96% 01/05/2013 8:56 AM EDT Inhaled Oxygen Concentration - - Weight 100.5 kg (221 lb 8 oz) 01/05/2013 8:56 AM EDT Height 160 cm (5' 2.99) 01/05/2013 8:56 AM EDT Body Mass Index 39.25 01/05/2013 8:56 AM EDT documented in this encounter Progress Notes Schuyler Lugo MD - 01/05/2013 8:59 AM EDT DIAGNOSIS: 1. 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 ER positive, HER-2/viktoria negative, with one lymph node microscopically positive, other two negative. She had arthralgias and myalgias on aromatase inhibitors and is currently on tamoxifen for a planned 10years . 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 SUBJECTIVE: Shraddha comes in today because of a new lump she is found in her right breast. She does that 9 days ago she awoke and it felt like she was hit by a baseball in the right breast. She feels a grape-sized lump and notes she multiple little small lumps that she's also noticed that trail off into the tail of the breast. She does not have any rash in that area. She describes this as a burning sensation. She notes that she would like to get an ultrasound because she feels her something wrong there. She's not had any fever or chills or other symptoms and no nipple discharge. Review systems remains largely positive for her. Past medical history and social history are reviewed. Unfortunately she has started smoking again. She is again counseled to consider smoking cessation. Review of Systems Constitutional: Negative for fever, chills, activity change, fatigue and unexpected weight change. HENT: Negative for sore throat, mouth sores and trouble swallowing. Eyes: Negative. Respiratory: Negative for cough, shortness of breath and wheezing. Cardiovascular: Negative for chest pain, palpitations and leg swelling. Gastrointestinal: positive for nausea, but no vomiting, abdominal pain, diarrhea, constipation and abdominal distention. Genitourinary: Negative for dysuria and difficulty urinating. Musculoskeletal: Negative. Skin: Negative. Neurological: Chronic Headaches. Hematological: Negative for adenopathy. Head: Normocephalic Eyes: PERRL, conjunctiva/corneas clear benign, both eyes Ears: Normal Nose: Nares normal, Neck: Supple, symmetrical, trachea midline, no adenopathy, thyroid: not enlarged, symmetric, no tenderness/mass/nodules, no carotid bruit or JVD Back: Symmetric, no curvature, ROM normal, no CVA tenderness Lungs: Clear to auscultation bilaterally, respirations unlabored Chest Wall: No tenderness or deformity.the right breast is carefully examined. I do not feel a dominant mass in the right breast. At the area of her lumpectomy site one can palpate the edge of the cavity there. She does note tenderness above that area that goes laterally in detail the breast. I do notpalpate any additional nodules in that area either. Essentially her exam is unchanged. Heart: Regular rate and rhythm, S1, S2 normal, no murmur, rub or gallop Abdomen: Soft, non-tender, bowel sounds active all four quadrants, no masses, no organomegaly Extremities: Extremities normal, atraumatic, no cyanosis or edema Pulses: 2+ and symmetric Skin: Skin color, texture, turgor normal, no rashes or lesions Lymph nodes: Cervical, supraclavicular, and axillary nodes normal Neurologic: Normal Her mammography from June is reviewed and unchanged. REASON FOR EXAM: Screening. History of Right breast cancer. TECHNIQUE: Cranio-caudal (CC) and mediolateral oblique (MLO) views of the both breasts obtained with direct digital capture. The exam was evaluated by CAD Version 8.3.17. RIGHT BREAST MAMMOGRAPHY This is an indeterminate (ACR Category 0) mammogram of the Right breast. There is an area of asymmetry (possible superimposition) in the upper Right breast, requiring additional imaging. LEFT BREAST MAMMOGRAPHY This is a negative mammogram (ACR Category 1). There is a stable fibroglandular pattern without significant change as compared to prior studies. There is no mammographic evidence of cancer. The breasts are of scattered density. CONCLUSION ASSESSMENT IS INCOMPLETE: Additional imaging recommended (ACR Category 0) of the Right breast. [facility] will contact the patient to schedule additional imaging. The contralateral breast is NEGATIVE (ACR Category 1). Routine screening mammography is recommended of the Left breast with the frequency dependent on the patient's age and breast cancer risk factors. DIAGNOSTIC RIGHT MAMMOGRAPHY ON 06/23/12: CLINICAL INDICATION: Area of asymmetry (possible superimposition) in the upper Right breast noted on recent screening study from 06/20/12. History of Right breast cancer. TECHNIQUE: Right ML, spot CC and spot MLO views obtained with direct digital capture. FINDINGS: This is a negative mammogram (ACR Category 1). There is a stable fibroglandular pattern without significant change as compared to prior studies. There is no mammographic evidence of cancer. The breast is of scattered density. Reduction surgery has been performed. The study includes additional views. An initial area of concern in the Right breast completely effaces on the additional views. CONCLUSION This is a NEGATIVE mammogram (ACR Category 1). Routine screening mammography is recommended with the frequency dependent on the patient's age and breast cancer risk factors. Assessment/Plan: Shraddha has new discomfort in her right breast and has noticed a lump there. I do not appreciate thison my exam today and I believe things are probably fine but in talking to her today she would like further evaluation. We'll go ahead and get a right breast mammogram and ultrasound and have her be seen in breast surgery clinic to make sure were not missing something. She'll keep her regular followup with us. documented in this encounter Plan of Treatment Not on filedocumented as of this encounter Visit Diagnoses Diagnosis Breast CA - Primary Malignant neoplasm of breast (female), u nspecified site documented in this encounter Care Teams Pipeline Integrity Engineer Relationship Specialty Start Date End Date Michela Stevenson APRN PCP - General 04/29/10 06/07/16 documented as of this encounter
--- OUTSIDE RECORDS SUMMARY | 2022-05-06 08:20 | XMS_ITS | Encounter Summary ---
:1960 Author Organization [facility] [place] [address] Care Team Providers Name Role Phone Luz Verdinne Jaden [place] Primary Care Provider Encounter Details Date Type Department Care Team Description 11/23/2012 Office Visit Neurology at [facility] Hudson Henry, Headache (Primary Dx) [place] [address] NEUROLOGY DEPT. [phone] [place], [place] [address] Social History Tobacco Use Types [...] Sign Reading Time Taken Comments Blood Pressure 108/75 11/23/2012 12:36 PM EDT Pulse 91 11/23/2012 12:36 PM EDT Temperature - - Respiratory Rate - - Oxygen Saturation - - Inhaled Oxygen Concentration - - Weight 101.2 kg (223 lb) 11/23/2012 12:36 PM EDT Height 160 cm (5' 3) 11/23/2012 12:36 PM EDT Body Mass Index 39.5 11/23/2012 12:36 PM EDT documented in this encounter Patient Instructions Patient InstructionsJay Saenz MD - 11/23/2012 2:12 PM EDT Take Topamax 25mg orally nightly for 2-3 weeks. If tolerated can go up to 50mg orally nightly Call if any questions, or experience mental fogginess or any other intolerance Drink plenty of water to avoid kidney stones Can expect to have finger tingling but call if it is intolerable Can consider occipital nerve block (injection to the neck) on the next visit Can consider magnesium and vitamin B2 supplement Return to clinic in 3 months documented in this encounter Progress Notes Jay Saenz MD - 11/23/2012 1:17 PM EDT Neurology Outpatient Clinic - Initial Encounter Patient name: Shraddha Chavez Date of : 1960 PCP: MICHELA VERDIN APRN Clinic Attending: Dr. Henry CC: headache HPI: Shraddha Chavez is a 52 y.o. 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 Patient was previously seen by Dr. Garcia for CERVANTES and last visit with him was in Mar 2012. Patient describes L sided headache which started about 2.5 years ago while she was at the cancer center for the breast CA treatment. It came on suddenly and felt as if she was hit with a bat. During the work up she was found to haveL temporal AVM and was treated with SRS. 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 The CERVANTES is pressure like sensationand is constant, seldom BL. (+) associated nausea. Fluctuates from 4/10 (baseline) to 20/10 (about once a month, minutes to hours, never more than 1 day). CERVANTES is worse as the day goes on. Denies photophobia / phonophobia. When CERVANTES is severe (+) nausea, vomiting, slurring speech, L ptosis, L body weakness, blurry vision, vertigo (once). Patient feels that the CERVANTES has worsened in the past few months. Of note, she has previously tried verapamil which caused nausea, dizziness, and hypotension then stopped. She has also tried dexamethasone, trental, hydroxyzine, indomethacin, and nortriptyline. ONB has been documented to relieve CERVANTES but patient does not remember. Previously described bad taste and smell with these HAs and at one point was taking up to 4 advil a day. No h/o kidney stones. Past Medical & Surgical History: Past Medical History Diagnosis Date ??? Cerebral AVM ??? Breast cancer ??? Arthritis ??? GERD (gastroesophageal reflux disease) ??? Allergy Past Surgical History Procedure Date ??? Hysterectomy ovaries not removed ??? Rotator cuff repair ??? Carpal tunnel release bilateral Medications: Tamoxifen loratidine 10mg daily Vitamin B complex Vitamin E Ondansetron 8mg prn Aspirin 325mg daily dexilant 60mg daily Allergy: Allergies Allergen Reactions ??? Latex Itching [...] Antibiotics) Hives ??? Tramadol Nausea And Vomiting Family History: Family History Problem Relation Age of Onset ??? Cataracts Mother ??? Hypertension Mother ??? Thyroid Disease Mother ??? Heart Disease Mother ??? Hypertension Father ??? Heart Disease Father ??? Diabetes Maternal Grandmother ??? Glaucoma Neg Hx ??? Macular Degeneration Neg Hx ??? Retinal Detachment Neg Hx ??? Blindness Neg Hx ??? Cancer Neg Hx ??? Stroke Neg Hx ??? Strabismus Grandchild ??? Amblyopia Grandchild ??? Diabetes Daughter Social History: Smokin cig/day, used to smoke 2ppd, quit a few times EtOH: occasionally rum & coke at a camp illicits: denies Living Situation: lives alone Occupation: disabled Review of systems: Constitutional: No fevers or chills Eyes: No vision changes, no diplopia, no blurry vision ENT: No rhinorrhea or pharyngitis, no meningismus CV: No chest pain or palpitations Resp: No cough, no shortness of breath GI: No nausea, vomiting, diarrhea or constipation : No dysuria, no incontinence Heme: No bleeding or bruising Endo: No diabetes or thyroid disease Neuro: See HPI Psych: No depression, normal sleep [x] Review of systems otherwise negative Physical Exam: Vitals: Temp: [36.8 ??C (98.2 ??F)] Heart Rate: [63-91] Resp: [18] BP: (108-135)/(73-96) SpO2: -- Gen: Patient of apparent stated age, obese, well developed, awake, alert, NAD Neck: Supple, no meningismus, no carotid bruit, (+) moderate L occipital tenderness CV: + S1, S2, RRR, no murmur [...] 5/5 strength throughout Sensation: Intact to light touch, temperature, and vibration throughout Reflexes: DTRs 1+ throughout Babinski - R down, L down Coordination: Finger to nose intact, no dysmetria Rapid alternating movements & finger tapping smooth and symmetric Gait: Stable, steady Labs: No results found for this or any previous visit (from the past 24 hour(s)). Diagnostic Tests and Imaging: MRI/MRA brain 08/15/12 1. No evidence of residual arteriovenous malformation. 2. 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 There is extensive surrounding vasogenic edema. Assessment / Plan: Shraddha Chavez is a 52 y.o. woman with h/o breast CA s/p sx, chemo, RT, L temporal AVM s/p SRS, radiation necrosis, and headache here for re-establishment of care for headache management. Patient's headache is likely migrainous chronic daily headache, and possibly having worsening from vasogenic edema evident on MRI. Patient is currently not on any ppx or prn CERVANTES meds, will restart today as patient is agreeable. -topamax 25mg QHS x 2-3 weeks, if tolerated increase to 50mg qhs -continue zofran prn nausea -can consider switching to hydroxyzine in the future -can consider magnesium & B2 supplement -patient will consider ONB for the next visit -AVS provided with above plan and common topamax side effects to monitor for -RTC in [address] Carl Saenz MD Neurology Resident, PGY2 Pager [phone] I have seen the patient and reviewed the resident's above history and I agree with the details as written. The assessment and plan were formulated in discussion with me and I agree with them as documented. Hudson Henry MD documented in this encounter Plan of Treatment Not on filedocumented as of this encounter Visit Diagnoses Diagnosis Headache(784.0) - Primary Headache documented in this encounter Care Teams Patient Safety Manager Relationship Specialty Start Date End Date Michela Verdin APRN PCP - General 04/29/10 06/07/16 documented as of this encounter
--- OUTSIDE RECORDS SUMMARY | 2022-05-06 08:20 | XMS_ITS | Encounter Summary ---
:1960 Author Organization [facility] [place] [address] Care Team Providers Name Role Phone Michela Stevenson [place] Primary Care Provider Encounter Details Date Type Department Care Team Description 01/09/2013 Hospital Encounter Mammography at [facility] Schuyler Lugo MD Breast CA [address] [id number] [phone] (Wo rk) Social History Tobacco Use Types [...] Priority Date/Time Associated Diagnosis Comme nts MAMMO DIRECT DIGITAL Routine 01/09/2013 2:03 PM Malignant neop lasm Results for this UNILATERAL EDT of breast (female), procedur e are in unspecified site the results section. documented in this encounter Results Mammo direct digital unilateral (01/09/2013 2:03 PM EDT) Anatomical Region Laterality Modality Breast N/A Mammography Specimen (Source) Anatomical Collection Method Collection Time Re ceived Time Location / / Volume Laterality 01/09/2013 2:03 PM EDT Impressions 01/11/2013 7:29 AM EDT [...] site documented in this encounter Care Teams Amusement Centre Manager Relationship Specialty Start Date End Date Michela Stevenson APRN PCP - General 04/29/10 06/07/16 documented as of this encounter
--- OUTSIDE RECORDS SUMMARY | 2022-05-06 08:20 | XMS_ITS | Encounter Summary ---
:1960 Author Organization [facility] [place] [address] Care Team Providers Name Role Phone Graham Michela Stanley APRN Primary Care Provider Reason for Visit Reason Comments On Treatment Visit HBOT #28 Encounter Details Date Type Department Care Team Description 11/24/2012 Office Visit Center for Hyper[facility]ic Radiat [facility] of [place] [facility] ([place]x) [place] [address] Social History Tobacco Use Types Packs/Day [...] Sign Reading Time Taken Comments Blood Pressure 121/82 11/24/2012 10:10 AM EDT Pulse 77 11/24/2012 10:10 AM EDT Temperature 36.8 ??C (98.3 ??F) 11/24/2012 8:25 AM EDT Respiratory Rate 18 11/24/2012 10:10 AM EDT Oxygen Saturation - - Inhaled Oxygen Concentration - - Weight - - Height - - Body Mass Index - - documented in this encounter Progress Notes Meghan Durham APRN - 11/24/2012 8:34 AM EDT Subjective: Patient ID: Shraddha Chavez [...] oxygen treatments initiated for post radiation injury. 11/24/12: Ms Chavez was seen in Neurology 11/23/12 and was given a prescription for Topamax which she has not yet started. Left side head pressure and pain continues. Review of Systems Constitutional: Negative for fever, chills and appetite change. HENT: Negative for ear pain, congestion and ear discharge. Eyes: Negative for visual disturbance. Respiratory: Negative for cough and shortness of breath. Skin: Negative. Neurological: Left side head pain and pressure. Psychiatric/Behavioral: Anxious at times. In good spirits today. Objective: Physical Exam Constitutional: She is oriented to person, place, and time. No distress. HENT: Right Ear: External ear normal. Left Ear: External ear normal. TMs intact bilaterally with no erythema. Cardiovascular: Normal rate and regular rhythm. Pulmonary/Chest: Effort normal. Neurological: She is alert and oriented to person, place, and time. Skin: Skin is warm and dry. She is not diaphoretic. Psychiatric: In good spirits today. Assessment and Plan: INTERVAL HISTORY: Visual Change: Denies SOB: Denies Headaches: Left side head pressure and pain. Cough: Denies Ear Pain: Denies Chest Pain: Denies Cold symptoms: Denies Shraddha Chavez received hyperbaric oxygen treatment today for adverse effects of radiation. 400 IU vitamin E taken before treatment. 100% cotton clothing in place. Patient checked for non-approved chamber items. Grounding strap applied and grounding verified,patient placed in chamber,communications checked. Meghan Durham APRN Administered the treatment and monitored the patient. HYPERBARIC TREATMENT: Number-28 Planned number of treatments-40 Compression Rate:1.5 Decompression Rate: 2.0 ALMAZ-2.4 Treatment start time:8:27 Treatment Time- 90 minutes Chamber time-118 Minutes- [place]christ Chamber Air Breaks-One 10 minute air break Treatment Notes: Ms. Chavez tolerated treatment well. She was seen in Neurology 11/23/12 and was given a prescription for Topamax which she has not yet started. Continue HBOT as scheduled with next treatment on 11/25/12. documented in this encounter Plan of Treatment Not on filedocumented as of this encounter Visit Diagnoses Diagnosis Radiation injury of brain - Primary Intracranial injury of other and unspeci fied nature, without mention of open intracranial wound, unspecified state of consciousness documented in this encounter Care Teams Portable Irrigation Operator Relationship Specialty Start Date End Date Michela Stevenson APRN PCP - General 04/29/10 06/07/16 documented as of this encounter
--- OUTSIDE RECORDS SUMMARY | 2022-05-06 08:20 | XMS_ITS | Encounter Summary ---
:1960 Author Organization [facility] [address] Care Team Providers Name Role Phone Michela Stevenson [place] Primary Care Provider Encounter Details Date Type Department Care Team Description 11/14/2012 Hospital Encounter XRay at [facility] LBP radiating to left [address] [place] [address] [place] [phone] Social History Tobacco Use Types Packs/Day [...] Associated Diagnosis Comme nts XR LUMBAR SPINE MIN Routine 11/14/2012 2:45 PM LBP radiating t o Results for this 4 VIEW EDT left leg procedure are i n the results section. documented in this encounter Results XR lumbar spine minimum 4 view (11/14/2012 2:45 PM EDT) Anatomical Region Laterality Modality L-spine N/A Radiographic Imaging Specimen (Source) Anatomical Collection Method Collection Time Re ceived Time Location / / Volume Laterality 11/14/2012 2:45 PM EDT Narrative 11/14/2012 5:22 PM EDT Examination L SPINE MINIMUM 4 VIEWS Clinical History lbp Comparison 05/09/2009. Technique AP, flexion, extension, and lateral view s of lumbar spine Findings There are 5 non rib-bearing vertebral danitza dies. Levoscoliosis of the lumbar spine is again noted. Vertebral body heights a re maintained. ??There is trace retrolisthesis of L2 on L3 and L3 on L4 as well as grade 1 L4 on L5 anterolisthesis, which do not appreciabl y changed with dynamic flexion or extension. Facet arthropathy is present, and most prominent in the lower lumbar spine. No acute fractures identified. No soft tissue calcifications. Mild multilevel disc degenerative changes wit h mild degrees of disc space narrowing noted throughout the lumbar spine. ?? Impression No dynamic subluxation or fracture. Advanced lower lumbar facet arthropathy and mild multilevel disc degenerative changes with multilevel listhesis, as ab ove. ?? Film and interpretation reviewed by the attending Procedure Note Ron Infante MD - 11/14/2012Formatti ng of this note might be different from the original. Examination L SPINE MINIMUM 4 VIEWS Clinical History lbp Comparison 05/09/2009. Technique AP, flexion, extension, and lateral view s of lumbar spine Findings There are 5 non rib-bearing vertebral danitza dies. Levoscoliosis of the lumbar spine is again noted. Vertebral body heights a re maintained. There is trace retrolisthesis of L2 on L3 and L3 on L4 as well as grade 1 L4 on L5 anterolisthesis, which do not appreciabl y changed with dynamic flexion or extension. Facet arthropathy is present, and most prominent in the lower lumbar spine. No acute fractures identified. No soft tissue calcifications. Mild multilevel disc degenerative changes wit h mild degrees of disc space narrowing noted throughout the lumbar spine. Impression No dynamic subluxation or fracture. Advanced lower lumbar facet arthropathy and mild multilevel disc degenerative changes with multilevel listhesis, as ab ove. Film and interpretation reviewed by the attending Scott Lang MD IMG DX ORDERABLES documented in this encounter Visit Diagnoses Diagnosis LBP radiating to left leg Lumbago documented in this encounter Care Teams Trim Attacher Relationship Specialty Start Date End Date Michela Stevenson APRN PCP - General 04/29/10 06/07/16 documented as of this encounter
--- OUTSIDE RECORDS SUMMARY | 2022-05-06 08:20 | XMS_ITS | Encounter Summary ---
:1960 Author Organization [facility] [place] [address] Care Team Providers Name Role Phone Graham Michela Stanley APRN Primary Care Provider Reason for Visit Reason Comments On Treatment Visit HBOT #7 Encounter Details Date Type Department Care Team Description 10/18/2012 Office Visit Center [facility]ic Radiat [facility] brain [place] [facility] [place] [address] Social History Tobacco Use Types Packs/Day [...] Sign Reading Time Taken Comments Blood Pressure 113/71 10/18/2012 11:10 AM EDT Pulse 82 10/18/2012 11:10 AM EDT Temperature 37 ??C (98.6 ??F) 10/18/2012 9:20 AM EDT Respiratory Rate 18 10/18/2012 9:20 AM EDT Oxygen Saturation - - Inhaled Oxygen Concentration - - Weight - - Height - - Body Mass Index - - documented in this encounter Progress Notes Meghan Durham APRN - 10/18/2012 9:29 AM EDT Subjective: Patient ID: Shraddha Chavez [...] oxygen treatments initiated for post radiation injury. 10/18/12:Ms. Chavez reports continued episodes of left sided head pressure. Occasional nausea. Review of Systems Constitutional: Negative for fever and chills. Occasional nausea, no vomiting. HENT: Positive for rhinorrhea. Negative for congestion, sinus pressure and ear discharge. Left ear stuffiness. Allergy symptoms present. Respiratory: Negative for cough and shortness of breath. Gastrointestinal: Positive for nausea. Negative for vomiting. Musculoskeletal: Positive for arthralgias and gait problem. Bilateral hip pain. Psychiatric/Behavioral: Anxious a times. Objective: Physical Exam Constitutional: She is oriented to person, place, and time. No distress. HENT: Right Ear: External ear normal. Left Ear: External ear normal. Erythema bilaterally to canals. TMs intact with no erythema. Cardiovascular: Regular rhythm. Pulmonary/Chest: Effort normal and breath sounds normal. No respiratory distress. Neurological: She is alert and oriented to person, place, and time. Skin: Skin is warm and dry. She is not diaphoretic. Psychiatric: She has a normal mood and affect. Assessment and Plan: INTERVAL HISTORY: Visual Change: Denies SOB: Denies Headaches: Left sided head pressure continues intermittently Cough:Denies Ear Pain: Denies Chest Pain: Denies Cold symptoms:Denies Other:Allergy symptoms. Shraddha Chavez received hyperbaric oxygen treatment today for adverse effects of radiation. 400 IU vitamin E taken before treatment. Chamber settings checked via checklist. Patient placed in chamber, communications checked, and ground strap attached. Meghan Durham APRN/Amy Peterson RN Administered the treatment and monitored the patient. HYPERBARIC TREATMENT: Number-7 Planned number of treatments-40 Compression Rate:1.5 Decompression Rate:2.0 ALMAZ-2.0 Treatment Time- 90 minutes Chamber time-116 Minutes- Sechrist Chamber Air Breaks-One 10 minute air break Education/Instruction: Clearing of ears: Reviewed techniques. Smoking cessation: Reinforced smoking cessation. Treatment Notes: Ms. Chavez continues to report left sided head pressure. Will continue to monitor this closely. documented in this encounter Plan of Treatment Not on filedocumented as of this encounter Visit Diagnoses Diagnosis Radiation injury of brain - Primary Intracranial injury of other and unspeci fied nature, without mention of open intracranial wound, unspecified state of consciousness documented in this encounter Care Teams Senior Software Engineer Relationship Specialty Start Date End Date Michela Stevenson APRN PCP - General 04/29/10 06/07/16 documented as of this encounter
--- OUTSIDE RECORDS SUMMARY | 2022-05-06 08:20 | XMS_ITS | Encounter Summary ---
:1960 Author Organization [facility] [place] [address] Care Team Providers Name Role Phone Luz Stevensonmaurice Stanley APRN Primary Care Provider Reason for Visit Reason Comments On Treatment Visit HBOT #11 Encounter Details Date Type Department Care Team Description 10/25/2012 Office Visit Center for Hyperbaric Radiat ion injury of brain Medicine at [facility] [place]x) [place] [address] Social History Tobacco Use Types Packs/Day [...] Sign Reading Time Taken Comments Blood Pressure 109/69 10/25/2012 11:15 AM EDT Pulse 68 10/25/2012 11:15 AM EDT Temperature 37.2 ??C (98.9 ??F) 10/25/2012 9:25 AM EDT Respiratory Rate - - Oxygen Saturation - - Inhaled Oxygen Concentration - - Weight - - Height - - Body Mass Index - - documented in this encounter Progress Notes Amy Peterson RN - 10/25/2012 11:52 AM EDT Shraddha Chavez received hyperbaric oxygen treatment today for radiation injury to the brain. 400 IU vitamin E taken before treatment. Chamber settings checked via checklist. Patient placed in chamber, communications checked, and ground strap attached. Chamber flushed with 100% O2. Amy Peterson RN Administered the treatment and monitored the patient. HYPERBARIC TREATMENT: Number- 11 Planned number of treatments- 40 Compression Rate: 1.5psi/min Decompression Rate: 2.0psi/min ALMAZ- 2.0 Treatment Time- 90 minutes Chamber time- 116 Minutes- Sechrist Chamber Air Breaks-One 10 minute air break Treatment Notes: Tolerated HBOT well, no issues during treatment. TMs appear normal. Continue HBOT as planned. Continue to reinforce how good it is that she has stopped smoking. documented in this encounter Plan of Treatment Not on filedocumented as of this encounter Visit Diagnoses Diagnosis Radiation injury of brain - Primary Intracranial injury of other and unspeci fied nature, without mention of open intracranial wound, unspecified state of consciousness documented in this encounter Care Teams Insurance Risk Manager Relationship Specialty Start Date End Date Michela Stevenson APRN PCP - General 04/29/10 06/07/16 documented as of this encounter
--- OUTSIDE RECORDS SUMMARY | 2022-05-06 08:20 | XMS_ITS | Encounter Summary ---
:1960 Author Organization [place] [address] Care Team Providers Name Role Phone Graham Michela Stanley APRN Primary Care Provider Reason for Visit Reason Comments On Treatment Visit HBOT #29 Encounter Details Date Type Department Care Team Description 11/25/2012 Office Visit Center for Hyperbaric Radiat ion injury of brain Medicine at [facility] [place] (Primary Dx) [place] [address] Social History Tobacco Use Types Packs/Day [...] Sign Reading Time Taken Comments Blood Pressure 125/71 11/25/2012 11:05 AM EDT Pulse 62 11/25/2012 11:05 AM EDT Temperature 36.7 ??C (98.1 ??F) 11/25/2012 9:41 AM EDT Respiratory Rate 18 11/25/2012 11:05 AM EDT Oxygen Saturation - - Inhaled Oxygen Concentration - - Weight - - Height - - Body Mass Index - - documented in this encounter Progress Notes Meghan Durham APRN - 11/25/2012 9:42 AM EDT Subjective: Patient ID: Shraddha Chavez [...] oxygen treatments initiated for post radiation injury. 11/25/12: Left side head pressure and pain continues, has not yet started the new Topamax prescription. She reports being full of energy yesterday afternoon. Review of Systems Constitutional: Negative for fever, chills and appetite change. Ms. Chavez reports being full of energy yesterday afternoon. HENT: Negative for ear pain and ear discharge. Allergy symptoms today, sneezing frequently this am. Eyes: Negative for visual disturbance. Respiratory: Negative for cough and shortness of breath. Gastrointestinal: Negative. Musculoskeletal: ON going generalized joint discomfort and back pain. Psychiatric/Behavioral: Negative. Objective: Physical Exam Constitutional: She is oriented to person, place, and time. No distress. HENT: Right Ear: External ear normal. Left Ear: External ear normal. TMs intact bilaterally with no erythema. Eyes: Right eye exhibits no discharge. Left eye exhibits no discharge. Cardiovascular: Normal rate and regular rhythm. Pulmonary/Chest: Effort normal. No respiratory distress. Neurological: She is alert and oriented to person, place, and time. Skin: Skin is warm and dry. She is not diaphoretic. Psychiatric: She has a normal mood and affect. Assessment and Plan: INTERVAL HISTORY: Visual Change: Denies SOB: Denies Headaches: Left side head pressure and pain. Cough:Denies Ear Pain: Denies Chest Pain: Denies Cold symptoms:Denies Shraddha Chavez received hyperbaric oxygen treatment today for adverse effects of radiation. 400 IU vitamin E taken before treatment. 100% cotton clothing in place. Patient checked for non-approved chamber items. Grounding strap applied and grounding verified,patient placed in chamber,communications checked. Meghan Durham APRN Administered the treatment and monitored the patient. HYPERBARIC TREATMENT: Number-29 Planned number of treatments-40 Compression Rate:1.5 Decompression Rate:2.0 ALMAZ-2.4 Treatment start time:9:10AM Treatment Time- 90 minutes Chamber time- 118 Minutes- Sechrist Chamber Air Breaks-One 10 minute air break Treatment Notes: Ms. Chavez tolerated treatment well today. Uncertain if she will return on 11/28/12 for HBOT R/T financial constraints. She was advised per Dr. Biggs that it is important to continue treatments. Ms. Chavez will call hyperbaric medicine with her plan as to whether or not she will continue with HBOT. The next scheduled treatment is for 11/28/12. documented in this encounter Plan of Treatment Not on filedocumented as of this encounter Visit Diagnoses Diagnosis Radiation injury of brain - Primary Intracranial injury of other and unspeci fied nature, without mention of open intracranial wound, unspecified state of consciousness documented in this encounter Care Teams Work Distributor Relationship Specialty Start Date End Date Michela Stevenson APRN PCP - General 04/29/10 06/07/16 documented as of this encounter
--- OUTSIDE RECORDS SUMMARY | 2022-05-06 08:20 | XMS_ITS | Encounter Summary ---
:1960 Author Organization [facility] [place] [address] Care Team Providers Name Role Phone Luz Stevensonmaurice Stanley APRN Primary Care Provider Reason for Referral Consultation (Routine) - Closed Specialty Diagnoses / Procedures Referred By Contact Refer red To Contact Pain Management Diagnoses LBP radiating to left leg Isabelle Gruber, [place] [facility] [place], [place] [id number] [place] [phone] Fax: Referral ID Status Reason Start Date Expiration Date Visits V isits Requested Authorized [id number] Closed Consult, 11/23/2012 05/22/2013 1 1 Test & Treat Encounter Details Date Type Department Care Team Description 11/23/2012 Follow-Up Spine Center at Isabelle Gruber, LBP rad iating to left [place] [employer] leg (Primary Dx) [facility] [address] [place] [address] PAIN CLINIC [phone] [place], [place] [address] (Wo rk) Social History Tobacco Use Types Packs/Day Years Used Date Smoking Tobacco: Former Cigarettes 0.3 37 Quit : 05/21/2010 Smokeless Tobacco: Never Alcohol Use Standard Drinks/Week Comments Yes 0 (1 standard drink = 0.6 oz pure alcoho l) very rare Sex Assigned at Date Recorded Not on file documented as of this encounter Progress Notes Isabelle Gruber, [employer] - 11/23/2012 8:15 AM EDT Shraddha Chavez is a 52 y.o. female returns to review her images. Symptoms today include daily low back pain that radiates to her left buttock, left lateral thigh, left lateral calf, and her foot, her foot pain related to other issues. She has pain and spasms down her left leg and can sometimes strain her foot. She can walk about a mile, stand about 20 to 30 minutes. Ice seems to be helpful for her. She rates the pain in her back anywhere from 5-10/10. 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 This is unchanged from the prior study. Bilateral knee prostheses are present. There is no evidence of skeletal metastases. There is no significant change since the prior study. MRI: Left foraminal stenosis at L5-S1, degenerative spondylolisthesis at L4-L5 resulting in moderatebilateral foraminal narrowing. Lesser degrees of degenerative changes of the levels. Small left foraminal protrusion at L2-L3. When compared with the prior study, the to the foramina at L2-L3 is new. The degree of spondylolisthesis at L4-L5 is slightly more. The degree of foraminal narrowing on the left at L5-S1 is increased as well. X-rays: No dynamic subluxation or fracture. Advanced lower lumbar facet arthropathy and mild multilevel disc degenerative changes with multilevel listhesis. Observation: She is pleasant, has good eye contact is seen today in the company of her aunt. I did not repeat her exam. Plan: We reviewed her imaging at some length and discussed her plan of care. She has had facet injections in the past which were not helpful. She will try a steroid injection. I reviewed previous notesfrom Dr. Alesha Milan who also had made this suggestion. I'll order the LESI, 1-2, 2-3 weeks apart, if she's not improved will consider having her seen by Dr. Varghese. documented in this encounter Plan of Treatment Scheduled Referrals Name Type Priority Associated Diagnoses Order S chedule Referral to Pain Outpatient Referral Routine LBP radiating to Ordered: Clinic left leg 11/23/2012 documented as of this encounter Visit Diagnoses Diagnosis LBP radiating to left leg - Primary Lumbago documented in this encounter Care Teams Credit Risk Modeler Relationship Specialty Start Date End Date Michela Stevenson APRN PCP - General 04/29/10 06/07/16 documented as of this encounter
--- OUTSIDE RECORDS SUMMARY | 2022-05-06 08:20 | XMS_ITS | Encounter Summary ---
:1960 Author Organization [facility] [address] Care Team Providers Name Role Phone Michela Stevenson Jaden FIGUEROA Primary Care Provider Reason for Visit Reason Comments Radiation Follow-up Encounter Details Date Type Department Care Team Description 11/18/2012 Follow-Up Radiation Oncology at [place], [place] Hilliard ([address] beth) ([facility] RADIATION ONCOLOGY Dx) [address] [phone] [phone] Social History Tobacco Use Types Packs/Day Years [...] Sign Reading Time Taken Comments Blood Pressure 122/65 11/18/2012 12:17 PM EDT Pulse 66 11/18/2012 12:17 PM EDT Temperature 36.6 ??C (97.9 ??F) 11/18/2012 12:17 PM EDT Respiratory Rate 18 11/18/2012 12:17 PM EDT Oxygen Saturation 97% 11/18/2012 12:17 PM EDT Inhaled Oxygen Concentration - - Weight 101.2 kg (223 lb) 11/18/2012 12:17 PM EDT Height - - Body Mass Index 39.5 10/24/2012 12:42 PM EDT documented in this encounter Progress Notes Domonique James, RADIO INSTALLER AUTOMOBILE - 11/28/2012 8:29 AM EDT Identification Shraddha Chavez is a 52 [...] headaches spurred a brain MRI performed at [facility]. This demonstrated an area of numerous [...] vary and show ring scotomas with a LINE WALKER pattern. Reassurance given about her exam findings. New MRx given. 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 3. Allergies 4. GERD 5. Arthritis Surgical [...] Refill ??? dexlansoprazole (DEXILANT) 60 mg CpDM Take [...] history: Shraddha asked to be seen. She has started hyperbaric oxygen therapy and report ongoing pressure to her head. 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 She was treated with an occipital nerve block which gave her short term relief. She did not tolerate medicationsindomethacin PRN and nortriptiline for breakthrough episodes and discontinued these. She also cancelled follow up at [facility] in neurology and asked to be referred to a provider closer to her home.. She was seen at [facility]. She is asking to be seen back by neurology here at [facility]> Review of Systems Constitutional: Negative. Negative for fever, chills, diaphoresis, activity change, appetite change and fatigue. Weight gain Gastrointestinal: Negative for nausea and vomiting. Genitourinary: Negative. Musculoskeletal: Negative for gait problem. Neurological: Positive for headaches. See interim history Headache described as a pressure involving the frontal area mostly on the left Psychiatric/Behavioral: Negative for confusion and sleep disturbance. The patient is nervous/anxious. Oncology Vitals 11/18/2012 Weight 101.152 kg Height BSA (Calculated - sq m) BMI (Calculated) Temp 97.9 Temp src 1 Pulse 66 Heart Rate Source NIBP Resp 18 BP 122/65 BP Location Left arm Patient Position Sitting SpO2 97 Pain Level 0 FACES Pain Rating: Rest 0 - no hurt FACES Pain Rating: Activity 0 - no hurt Karnofsky Score 90 Physical Exam Vitals reviewed. Constitutional: She is oriented to person, place, and time. She appears well- developed and well-nourished. No distress. HENT: Head: Normocephalic and atraumatic. Cardiovascular: Normal rate and regular rhythm. Pulmonary/Chest: Effort normal. Neurological: She is alert and oriented to person, place, and time. She has normal strength. She is not disoriented. She displays no atrophy and no tremor. No sensory deficit. She displays a negative Romberg sign. She displays no seizure activity. Coordination and gait normal. Skin: She is not diaphoretic. No cyanosis. Psychiatric: Her speech is normal and behavior [...] There is extensive surrounding vasogenic edema. Asessment/Plans AVM: Shraddha's symptoms have recurred and persist ie headache, nausea, intermittent alteration in speech. She had short term relief in March when she was treated with bilateral occipital nerve block. She unfortunately did not follow up with neurology as planned. She did have visual exam which overallwas benign. Her current MRI demonstrates progression of radiation necrosis. Shraddha has been given a course of steroids and was started on trental and vitamin E for this last fall. She did not tolerate the steroids which caused problems with sleep, anxiety and weight gain. She also discontinued the trental. She has started hyperbaric oxygen therapy. . We discussed that her recent angiogram verified that resolution of the AVM. We arranged for Shraddha to be seen by neurology at [facility] again. Patient was seen in follow-up for a total of 20 minutes, with 15 minutes of that time spent discussing his current clinical condition, reviewing medication management, counseling regarding symptom management and planning further management. 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
--- OUTSIDE RECORDS SUMMARY | 2022-05-06 08:20 | XMS_ITS | Encounter Summary ---
:1960 Author Organization [facility] [place] [address] Care Team Providers Name Role Phone Graham Michela Stanley APRN Primary Care Provider Reason for Visit Reason Comments On Treatment Visit HBOT #15 Encounter Details Date Type Department Care Team Description 11/01/2012 Office Visit [facility] [place] [facility] [address] Social History Tobacco Use Types Packs/Day [...] Sign Reading Time Taken Comments Blood Pressure 131/77 11/01/2012 11:00 AM EDT Pulse 63 11/01/2012 11:00 AM EDT Temperature 37.1 ??C (98.7 ??F) 11/01/2012 9:45 AM EDT Respiratory Rate 18 11/01/2012 11:00 AM EDT Oxygen Saturation - - Inhaled Oxygen Concentration - - Weight - - Height - - Body Mass Index - - documented in this encounter Progress Notes Meghan Durham APRN - 11/01/2012 11:44 AM EDT Subjective: Patient ID: Shrdadha Chavez is a 52 y.o. female. HPI:Ms. [...] oxygen treatments initiated for post radiation injury. 11/01/12:Ms. Chavez reports continued left sided head pressure intermittently over the weekend accompanied by nausea. She reports dry heaves this am. She notes an increase in head pressure over the last 2 weeks and feels as though symptoms are getting worse. She rates the pain at a level 10 on a scale of 1-10, 10 being the worst. Review of Systems Constitutional: Positive for appetite change. Negative for fever and chills. HENT: Negative for ear pain, trouble swallowing, sinus pressure and ear discharge. Left sided head pain. Respiratory: Negative for cough and shortness of breath. Cardiovascular: She reports chest discomfort with use of the nicotine patch. Gastrointestinal: Positive for nausea and vomiting. Dry heaves this morning. Musculoskeletal: Positive for arthralgias. Ongoing arthralgias. Neurological: Positive for speech difficulty. She reports speech difficulties when head pain and pressure occur. Psychiatric/Behavioral: The patient is nervous/anxious. Objective: Physical Exam Constitutional: She is oriented to person, place, and time. HENT: Right Ear: External ear normal. Left Ear: External ear normal. TMs intact bilaterally with no erythema. Eyes: Right eye exhibits no discharge. Left eye exhibits no discharge. Cardiovascular: Regular rhythm. Pulmonary/Chest: Effort normal. No respiratory distress. Neurological: She is alert and oriented to person, place, and time. Bilateral hand grasps equal. Strength 5/5/ bilaterally upper extremities. SlighT drooping of left upper eyelid. MIKE. EOMI, no nystagmus. Tongue and uvula midline. Unable to perform Romberg. She can ambulate on toes but not on heels related to hip pain. Speech clear post HBOT, but difficulty with pronunciation of words pre-treatment. Skin: Skin is warm and dry. She is not diaphoretic. Psychiatric: Slightly anxious today and tearful regarding symptoms. Assessment and Plan: INTERVAL HISTORY: Visual Change: Denies SOB: Denies Headaches: Left side head pain and pressure Cough:Denies Ear Pain: Denies Chest Pain: She reports chest discomfort with the nicotine patch. Cold symptoms:Denies Other:Left sided head pain and pressure intermittently over the weekend. Head symptoms accompanied by nausea. Shraddha Chavez received hyperbaric oxygen treatment today for adverse effects of radiation. 400 IU vitamin E taken before treatment. Chamber settings checked via checklist. Patient placed in chamber, communications checked, and ground strap attached. Meghan Durham APRN/Amy Peterson RN Administered the treatment and monitored the patient. HYPERBARIC TREATMENT: Number-15 Planned number of treatments-40 Compression Rate:1.5 Decompression Rate:2.0 ALMAZ-2.0 Treatment Time- 60 minutes Chamber time- 75 Minutes- [facility] Chamber Air Breaks-One 10 minute air break Education/Instruction: Smoking cessation;Utliizing Nicotine patch 21mg once daily, removes patch at night R/T nightmares. Treatment Notes: Ms. Chavez was able to tolerate 60 minutes of treatment today. Treatment ended early R/T left sided head pressure. She has has an increase in left sided head pressure accompanied by nausea. She rates the pain a level 10 on a scale of 1-10, 10 being the worst. She reports that the increase in symptoms has occurred over the last 2 weeks. She also started a 21mg nicotine patch approximately 2 weeks ago. She notes sheis completely out of nausea medication. Rosario James APRN and Michela Stevenson APRN (pcp) attempted to be reached today to discuss symptoms. Both were unavaialble. Plan: Message left for Michela Stevenson APRN to return call 11/02/12 to discuss nicotine patch. The dose may be too strong and may be contributing to Ms. Chavez's symptoms. Ms Chavez was advised to hold use of the patch until it can be discussed with her PCP. Also will discuss plan of care with Sania James APRN when she returns. Will discuss with Dr. Biggs also. documented in this encounter Plan of Treatment Not on filedocumented as of this encounter Visit Diagnoses Diagnosis Radiation injury of brain - Primary Intracranial injury of other and unspeci fied nature, without mention of open intracranial wound, unspecified state of consciousness documented in this encounter Care Teams Cooler Tender Relationship Specialty Start Date End Date Michela Stevenson APRN PCP - General 04/29/10 06/07/16 documented as of this encounter
--- OUTSIDE RECORDS SUMMARY | 2022-05-06 08:20 | XMS_ITS | Encounter Summary ---
:1960 Author Organization [facility] [place] [address] Care Team Providers Name Role Phone Stevenson, Michela Stanley APRN Primary Care Provider Reason for Visit Reason Comments On Treatment Visit HBOT #3 Encounter Details Date Type Department Care Team Description 10/12/2012 Office Visit Center for Hyperbaric Radiat ion injury of brain Medicine at [facility] [place] (Primary Dx) [place] [phone] Social History Tobacco Use Types Packs/Day [...] Sign Reading Time Taken Comments Blood Pressure 110/57 10/12/2012 11:10 AM EDT Pulse 69 10/12/2012 11:10 AM EDT Temperature 36.9 ??C (98.4 ??F) 10/12/2012 9:33 AM EDT Respiratory Rate 18 10/12/2012 11:10 AM EDT Oxygen Saturation - - Inhaled Oxygen Concentration - - Weight - - Height - - Body Mass Index - - documented in this encounter Progress Notes Meghan Durham APRN - 10/12/2012 10:01 AM EDT Subjective: Patient ID: Shraddha Chavez [...] necrosis. There is extensive surrounding vasogenic edema. 10/10/12: Hyperbaric oxygen treatments initiated for post radiation injury. 10/12/12:Ms. Chavez reports a sensation of pressure to left side of head yesterday afternoon lasting several minutes. She has had similar symptoms in the past. She also reports that nausea has subsided. Review of Systems Constitutional: Negative for fever, chills and activity change. Nausea has subsided. She experienced a sense of pressure to left side of head yesterday afternoon post HBO treatment lasting several minutes. HENT: Negative for ear pain, congestion, sinus pressure and ear discharge. Eyes: Negative for visual disturbance. Respiratory: Negative for cough and shortness of breath. Gastrointestinal: Negative for nausea. Skin: Negative. Neurological: Pressure sensation to left side of head. Psychiatric/Behavioral: Negative. Objective: Physical Exam Constitutional: She is oriented to person, place, and time. No distress. HENT: Right Ear: External ear normal. Left Ear: External ear normal. TMs intact bilaterally with no erythema. Cardiovascular: Regular rhythm. Pulmonary/Chest: Effort normal. No respiratory distress. Neurological: She is alert and oriented to person, place, and time. Skin: Skin is warm and dry. She is not diaphoretic. Psychiatric: She has a normal mood and affect. Assessment and Plan: INTERVAL HISTORY: Visual Change:Denies SOB: Denies Headaches: Denies Cough:Denies Ear Pain: Denies Chest Pain: Denies Cold symptoms:Denies Other: A sense of pressure to left side of head which lasted several minutes yesterday afternoon post treatment. Shraddha Chavez received hyperbaric oxygen treatment today for adverse effects of radiation. 400 IU vitamin E taken before treatment. Chamber settings checked via checklist. Patient placed in chamber, communications checked, and ground strap attached. Meghan Durham APRN Administered the treatment and monitored the patient. HYPERBARIC TREATMENT: Number-3 Planned number of treatments-40 Compression Rate:1.5 Decompression Rate:2.0 ALMAZ-2.0 Treatment Time- 90 minutes Chamber time- 116 Minutes- Sechrist Chamber/[facility] Chamber Air Breaks-One 10 minute air break Education/Instruction: Clearing of ears: Reviewed techniques Smoking cessation: Reinforced importance of smoking cessation. Treatment Notes: Ms. Chavez did experience a sense of pressure to left side of head during pressurization. Symptoms eased with decrease in pressure and eventually pressurization was resumed and tolerated at 2.0ATA. Will continue pressure at 2.0 ALMAZ. Continue to monitor sensation of pressure to left side of head over temporal/parietal area. documented in this encounter Plan of Treatment Not on filedocumented as of this encounter Visit Diagnoses Diagnosis Radiation injury of brain - Primary Intracranial injury of other and unspeci fied nature, without mention of open intracranial wound, unspecified state of consciousness documented in this encounter Care Teams Industrial Education Teacher Relationship Specialty Start Date End Date Michela Stevenson APRN PCP - General 04/29/10 06/07/16 documented as of this encounter
--- OUTSIDE RECORDS SUMMARY | 2022-05-06 08:20 | XMS_ITS | Encounter Summary ---
:1960 Author Organization [facility] [place] [address] Care Team Providers Name Role Phone Graham Michela Stanley APRN Primary Care Provider Reason for Visit Reason Comments On Treatment Visit HBOT #31 Encounter Details Date Type Department Care Team Description 11/29/2012 Office Visit Center for Hyperbaric Radiat ion injury of brain Medicine at [facility] [place] (Primary Dx) [place] [address] Social History Tobacco Use Types Packs/Day [...] Sign Reading Time Taken Comments Blood Pressure 123/61 11/29/2012 10:06 AM EDT Pulse 59 11/29/2012 10:06 AM EDT Temperature 37.1 ??C (98.8 ??F) 11/29/2012 8:15 AM EDT Respiratory Rate 18 11/29/2012 10:06 AM EDT Oxygen Saturation - - Inhaled Oxygen Concentration - - Weight - - Height - - Body Mass Index - - documented in this encounter Progress Notes Meghan Durham APRN - 11/29/2012 8:20 AM EDT Subjective: Patient ID: Shraddha Chavez [...] oxygen treatments initiated for post radiation injury. 11/29/12: Ms. Chavez reports no headache or head pressure this am. She also reports continued high energy levels.Topamax prescription has not yet been started. Review of Systems Constitutional: Negative for fever and chills. Ms. Chavez reports an increase in energy level. HENT: Negative for ear pain, congestion and sinus pressure. Eyes: Negative for visual disturbance. Respiratory: Negative for shortness of breath. Skin: Negative for color change. Neurological: No headache or head pressure this am. Psychiatric/Behavioral: Negative. Objective: Physical Exam Constitutional: She is oriented to person, place, and time. No distress. HENT: Right Ear: External ear normal. Left Ear: External ear normal. TMs intact bilaterally with no erythema. Eyes: Vision today per Snellen chart: OU 20/30 OD 20/40 OS 20/80 Refraction values: RIGHT LEFT Spherical: 0.00 0.75 Cylinder - 1.00 1.75 [place] 78 69 Cardiovascular: Normal rate and regular rhythm. Pulmonary/Chest: Effort normal. Neurological: She is alert and oriented to person, place, and time. Skin: Skin is warm and dry. She is not diaphoretic. Psychiatric: She has a normal mood and affect. Assessment and Plan: INTERVAL HISTORY: Visual Change:Denies SOB: Denies Headaches: Decreased left side head pressure. Cough:Denies Ear Pain: Denies Chest Pain: Denies Cold symptoms:Denies Other: Continues with high energy levels. Shraddha Chavez received hyperbaric oxygen treatment today for adverse effects of radiation. 400 IU vitamin E taken before treatment. 100% cotton clothing in place. Patient checked for non-approved chamber items. Grounding strap applied and grounding verified,patient placed in chamber,communications checked. Meghan Durham APRN/Amy Peterson RN Administered the treatment and monitored the patient. HYPERBARIC TREATMENT: Number-31 Planned number of treatments-40 Compression Rate:1.5 Decompression Rate:2.0 ALMAZ-2.4 Treatment start time:8:20AM Treatment Time- 90 minutes Chamber time- 118 Minutes- Sechrist Chamber Air Breaks-One 10 minute air break Treatment Notes: Ms. Chavez continues to tolerate treatment well. She also reports continued high energy levels and decreased episodes of head pressure and pain. She does continue with episodes of nausea. She has not yet stated the Topamax as prescribed per neurology. Vision rechecked today via Snellen chart and refraction showing a slight improvement in vision. Continue HBOT As scheduled to 40 treatments. documented in this encounter Plan of Treatment Not on filedocumented as of this encounter Visit Diagnoses Diagnosis Radiation injury of brain - Primary Intracranial injury of other and unspeci fied nature, without mention of open intracranial wound, unspecified state of consciousness documented in this encounter Care Teams Stud Driver Relationship Specialty Start Date End Date Michela Stevenson APRN PCP - General 04/29/10 06/07/16 documented as of this encounter
--- OUTSIDE RECORDS SUMMARY | 2022-05-06 08:20 | XMS_ITS | Encounter Summary ---
:1960 Author Organization [facility] [place] [address] Care Team Providers Name Role Phone Stevenson, Michela Stanley APRN Primary Care Provider Reason for Visit Reason Comments On Treatment Visit HBOT #6 Encounter Details Date Type Department Care Team Description 10/17/2012 Office Visit Center for Hyperbaric Radiat ion injury of brain Medicine at [facility] (Primary Dx) [place] [address] Social History Tobacco Use Types Packs/Day [...] Reading Time Taken Comments Blood Pressure 116/70 10/17/2012 11:20 AM EDT Pulse 75 10/17/2012 11:20 AM EDT Temperature 36.7 ??C (98.1 ??F) 10/17/2012 9:35 AM EDT Respiratory Rate 18 10/17/2012 11:20 AM EDT Oxygen Saturation - - Inhaled Oxygen Concentration - - Weight - - Height - - Body Mass Index - - documented in this encounter Progress Notes Meghan Durham APRN - 10/17/2012 10:08 AM EDT Subjective: Patient ID: Shraddha Chavez [...] oxygen treatments initiated for post radiation injury. 10/17/12:Ms. Chavez reports having frequent episodes of left sided head pressure over the weekend sometimes associated with a sense of nearly passing out. She also reports not sleeping well over the weekend. Review of Systems Constitutional: Negative for fever, chills and appetite change. HENT: Negative for congestion, trouble swallowing, sinus pressure and ear discharge. Respiratory: Negative for cough and shortness of breath. Neurological: Left sided head pressure. Psychiatric/Behavioral: The patient is nervous/anxious. Objective: Physical Exam Constitutional: She is oriented to person, place, and time. No distress. HENT: Right Ear: External ear normal. Left Ear: External ear normal. TMs intact bilaterally with no erythema. Cardiovascular: Regular rhythm. Heart rate of 102 post activity of walking. Pulmonary/Chest: Effort normal. No respiratory distress. Neurological: She is alert and oriented to person, place, and time. Skin: Skin is warm and dry. She is not diaphoretic. Psychiatric: Slightly anxious today. Assessment and Plan: INTERVAL HISTORY: Visual Change: Denies SOB: Denies Headaches: Denies Cough:Denies Ear Pain: Denies Chest Pain: Denies Cold symptoms:Denies Other: Pressure sensation to left side of head. Shraddha Chavez received hyperbaric oxygen treatment today for adverse effects of radiation. 400 IU vitamin E taken before treatment. Chamber settings checked via checklist. Patient placed in chamber, communications checked, and ground strap attached. Meghan Durham APRN/Amy Peterson RN Administered the treatment and monitored the patient. HYPERBARIC TREATMENT: Number-6 Planned number of treatments-40 Pre Treatment Glucose: 105 mg/dl Post HBOT Blood Glucose: 99 mg/dl Compression Rate:1.5 Decompression Rate:2.0 ALMAZ-2.0 Treatment Time- 90 minutes Chamber time- 116 Minutes- [facility] Chamber Air Breaks-One 10 minute air break Education/Instruction: Clearing of ears; reviewed techniques Smoking cessation; reinforced importance of smoking cessation. Treatment Notes: Ms. Chavez reported left sided head pressure over the weekend. Symptoms were accompanied by nausea. Also, she experienced a sense of nearly passing out with the head pressure. Discussed symptoms with Dr. Biggs. Also discussed with Rosario James APRN in Rad/Onc who follows Shraddha on a regular basis. Ms. James notes that Shraddha has had these symptoms for a long duration and she has undergone imaging as well as vascular studies to determine if there is any specific underlying cause of the symptoms. 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 The recommendation was to reassure Shraddha and re-inform her that HBOT will require time to determine if it will be beneficial for her symptoms. Dr. Biggs again discussed the dynamics behind HBOT and if it is going to provide any benefit , it will require more treatment time. She was also advised that she will not see any change in symptoms after only 6 hyperbaric treatments and that more time is required. Ms. Chavez verbalized understanding of same and wishes to continue with treatment plan. Ms. Chavez tolerated treatment well. Blood sugar checked pre and post HBOT which showed no significant change in levels. documented in this encounter Plan of Treatment Not on filedocumented as of this encounter Procedures Procedure Name Priority Date/Time Associated Diagnosis Comme nts POCT GLUCOSE Routine 10/17/2012 11:27 AM Results for this EDT procedure are i n the results section . POCT GLUCOSE Routine 10/17/2012 9:42 AM Results f or this EDT procedure are i n the results section . documented in this encounter Results POCT Glucose (10/17/2012 11:27 AM EDT) P athologist Signature POC Glucose 99 60 - 199 CERNER mg/dL [facility] Comment: Supplemental ranges: <110 mg/dL before meals <200 mg/dL all other times of the day Specimen Anatomical Collection Method Collection Time Receive d Time (Source) Location / / Volume Laterality Blood specimen 10/17/2012 11:27 201 3 (specimen) AM EDT 11:[address] Sree Foley MD POINT OF CARE TEST ORDERABLE S Performing Organization Address City/State/ZIP Code Phon e Number [address] [facility] Glucose (10/17/2012 9:42 AM EDT) athologist Signature POC Glucose 105 60 - 199 CERNER mg/dL [facility] Comment: Supplemental ranges: <110 mg/dL before meals <200 mg/dL all other times of the day Specimen Anatomical Collection Method Collection Time Receive d Time (Source) Location / / Volume Laterality Blood specimen 10/17/2012 9:42 AM 2 013 9:42 (specimen) EDT AM EDT Dr Sree Foley MD POINT OF CARE TEST ORDERABLE S Performing Organization Address City/State/ZIP Code Phon e Number [address] [facility] documented in this encounter Visit Diagnoses Diagnosis Radiation injury of brain - Primary Intracranial injury of other and unspeci fied nature, without mention of open intracranial wound, unspecified state of consciousness documented in this encounter Care Teams Flare Breaker Relationship Specialty Start Date End Date Michela Stevenson APRN PCP - General 04/29/10 06/07/16 documented as of this encounter
--- OUTSIDE RECORDS SUMMARY | 2022-05-06 08:20 | XMS_ITS | Encounter Summary ---
:1960 Author Organization [facility] [place] [address] Care Team Providers Name Role Phone Michela Stevenson Jaden FIGUEROA Primary Care Provider Reason for Visit Reason Comments On Treatment Visit HBOT #24 Encounter Details Date Type Department Care Team Description 11/18/2012 Office Visit Center for Hyperbaric Radiat ion injury of brain Medicine at [facility] (Primary Dx) [place] [address] Social History Tobacco Use Types Packs/Day [...] Sign Reading Time Taken Comments Blood Pressure 131/80 11/18/2012 12:00 PM EDT Pulse 60 11/18/2012 12:00 PM EDT Temperature 37 ??C (98.6 ??F) 11/18/2012 10:35 AM EDT Respiratory Rate - - Oxygen Saturation - - Inhaled Oxygen Concentration - - Weight - - Height - - Body Mass Index - - documented in this encounter Progress Notes Amy Peterson RN - 11/18/2012 1:05 PM EDT Shraddha Chavez received hyperbaric oxygen treatment today for radiation injury to the brain. 400 IU vitamin E taken before treatment. 100% cotton clothing in place. Patient checked for non-approved chamber items. Grounding strap applied and grounding verified,patient placed in chamber,communications checked. Amy Peterson RN Administered the treatment and monitored the patient. HYPERBARIC TREATMENT: Number- 24 Planned number of treatments- 40 Compression Rate: 1.5psi/min Decompression Rate: 2.0psi/min ALMAZ- 2.0 Treatment Time- 75 minutes Chamber time- 85 Minutes- [facility] Chamber Air Breaks-One 10 minute air break Smoking cessation - reviewed importance of not smoking. She states she is not smoking many and is working on quitting completely Treatment Notes: Tolerated HBOT well, no issues during treatment. TMs appear normal, ear canal of L ear is red, she states it is itchy. Treatmetn only 75 minutes today as she an appointment at noon that she did not want to be late for. Continue HBOT as planned. Support her efforts to stop smoking. documented in this encounter Plan of Treatment Not on filedocumented as of this encounter Visit Diagnoses Diagnosis Radiation injury of brain - Primary Intracranial injury of other and unspeci fied nature, without mention of open intracranial wound, unspecified state of consciousness documented in this encounter Care Teams Plastics Repairer Relationship Specialty Start Date End Date Michela Stevenson APRN PCP - General 04/29/10 06/07/16 documented as of this encounter
--- OUTSIDE RECORDS SUMMARY | 2022-05-06 08:20 | XMS_ITS | Encounter Summary ---
:1960 Author Organization [facility] [place] [address] Care Team Providers Name Role Phone Luz Stevenosnmaurice Stanley APRN Primary Care Provider Reason for Visit Reason Comments On Treatment Visit HBOT #33 Encounter Details Date Type Department Care Team Description 12/01/2012 Office Visit [facility] Rad[facility] [place] [facility] [place] [address] Social History Tobacco Use Types Packs/Day [...] Sign Reading Time Taken Comments Blood Pressure 129/81 12/01/2012 9:30 AM EDT Pulse 62 12/01/2012 9:30 AM EDT Temperature 37.1 ??C (98.8 ??F) 12/01/2012 7:44 AM EDT Respiratory Rate - - Oxygen Saturation - - Inhaled Oxygen Concentration - - Weight - - Height - - Body Mass Index - - documented in this encounter Progress Notes Amy Peterson RN - 12/01/2012 9:36 AM EDT Shraddha Chavez received hyperbaric oxygen treatment today for radiation injury to the brain. 400 IU vitamin E taken before treatment. 100% cotton clothing in place. Patient checked for non-approved chamber items. Grounding strap applied and grounding verified,patient placed in chamber,communications checked. Meghan Durham APRN/Amy Peterson RN Administered the treatment and monitored the patient. HYPERBARIC TREATMENT: Number- 33 Planned number of treatments- 40 Compression Rate:1.5 psi/min Decompression Rate: 2.0psi/min ALMAZ- 2.4 Treatment Time- 90 minutes Chamber time- Minutes- Sechrist Chamber Air Breaks-One 10 minute air break Treatment Notes: Tolerated HBOT well, no issues during treatment. TMs appear normal. Continue HBOT as planned. documented in this encounter Plan of Treatment Not on filedocumented as of this encounter Visit Diagnoses Diagnosis Radiation injury of brain - Primary Intracranial injury of other and unspeci fied nature, without mention of open intracranial wound, unspecified state of consciousness documented in this encounter Care Teams Eap Consultant Relationship Specialty Start Date End Date Michela Stevenson APRN PCP - General 04/29/10 06/07/16 documented as of this encounter
--- OUTSIDE RECORDS SUMMARY | 2022-05-06 08:20 | XMS_ITS | Encounter Summary ---
:1960 Author Organization [facility] [place] [address] Care Team Providers Name Role Phone Michela Stevenson Jaden FIGUEROA Primary Care Provider Reason for Referral Surgical (Routine) - Closed Specialty Diagnoses / Procedures Referred By Contact Refer red To Contact Orthopaedics Diagnoses S/P knee replacement Juanjo Jacobson PA [facility] 3d [facility] D R [facility] [place] [address] [place] [address] Referral ID Status Reason Start Date Expiration Date Visits V isits Requested Authorized [id number] Closed Consult, 10/24/2012 04/22/2013 1 1 Test & Treat Reason for Visit Reason Comments Joint Replacement s/p Left TKA 10/31/08 Encounter Details Date Type Department Care Team Description 10/24/2012 Office Visit Orthopaedics at [facility] Juanjo Jacobson S/P knee replacement (Primar y Dx); [facility] JA[place] [address] [facility]ENTER [phone] ORTHOPAEDIC SURGERY [place], [place] [address] Social History Tobacco Use Types [...] Sign Reading Time Taken Comments Blood Pressure 109/74 10/24/2012 12:42 PM EDT Pulse 85 10/24/2012 12:42 PM EDT Temperature - - Respiratory Rate 18 10/24/2012 12:42 PM EDT Oxygen Saturation - - Inhaled Oxygen Concentration - - Weight 106.8 kg (235 lb 8 oz) 10/24/2012 12:42 PM EDT Height 160 cm (5' 3) 10/24/2012 12:42 PM EDT Body Mass Index 41.72 10/24/2012 12:42 PM EDT documented in this encounter Progress Notes Juanjo Jacobson PA - 10/24/2012 1:04 PM EDT CHIEF COMPLAINT: Status post bilateral total knee arthroplasties by Dr. Altamirano. HISTORY OF PRESENT ILLNESS: This is a pleasant 52-year-old female here today in followup regarding her bilateral knees. I saw her about three months ago with some increasing pain in the anterior aspects felt to be consistent with patellofemoral syndrome and deconditioning. She was sent to the physical therapy. She has tried that. She did not see any significant improvement. Unfortunately, she had to stop that somewhat prematurely as she was diagnosed with arteriovenous malformation and her pain. She is currently undergoing hyperbaric treatments for this with a followup for consideration for further surgery so as to take the stress away from her knees a little bit. She otherwise continues to be quite stable. No fevers, chills, or other complications. She continues to work on her own on her leg and knee exercises. She also has a history of low back pain with spondylolisthesis and has been seen in the spine center in 2008, but her back has become an increasing problem for her as well. PHYSICAL EXAMINATION: Overweight 52-year-old in no acute distress, A and O x3 with a pleasant affect, comes in to the office today without antalgia. Exam of bilateral knee shows no obvious deformity. No effusion noted. No pain with patellar mobilization. She is tender over the patellar tendons bilaterally. Able to do straight leg raise without difficulty or lag. Range of motion 0 to 115 bilaterally. Stable to varus and valgus stress at 0 and 30 degrees. Negative anterior drawer sign. Normal sensation and motor function distally. IMPRESSION: Continued bilateral knee pain consistent with patellofemoral maltracking and patellar tendinopathy. PLAN: I had a lengthy conversation with the patient in the office today about the nature of her findings. I am suspicious that her back may have progressed slightly as she continues to struggle with some leg weakness. At times, her knees are stable and no evidence of complication. She has some other larger health issues that she needs to address. We will plan to see her in one year's time for the knees. I have her seen again in the spine center for further evaluation with regards to her back. We ordered x-rays of her spine today. She feels comfortable with this approach. documented in this encounter Plan of Treatment Scheduled Referrals Name Type Priority Associated Diagnoses Order S chedule Referral to Spine Outpatient Referral Routine S/P knee replace ment Ordered: Center 10/24/2012 documented as of this encounter Visit Diagnoses Diagnosis S/P knee replacement - Primary Knee joint replacement by other means Back pain Backache, unspecified documented in this encounter Care Teams Slab Inspector Relationship Specialty Start Date End Date Michela Stevenson APRN PCP - General 04/29/10 06/07/16 documented as of this encounter
--- OUTSIDE RECORDS SUMMARY | 2022-05-06 08:20 | XMS_ITS | Encounter Summary ---
:1960 Author Organization [facility] [place] [address] Care Team Providers Name Role Phone Michela Stevenson Jaden FIGUEROA Primary Care Provider Reason for Visit Reason Comments Low Back Pain Bilateral Hip Pain Bilateral Leg Pain tingling in legs with walkin g, left leg drags Encounter Details Date Type Department Care Team Description 11/14/2012 Office Visit Spine Center at [facility], Isabelle Paiz, LBP rad iating to left leg (Primary Dx); Marcy FIGUEROA Impaired contrast sensitivity [facility] [address] [place] [facility] [address] [place] [address] [phone] Social History Tobacco Use Types Packs/Day Years Used Date Smoking Tobacco: Former Cigarettes 0.3 37 Quit : 05/21/2010 Smokeless Tobacco: Never Alcohol Use Standard Drinks/Week Comments Yes 0 (1 standard drink = 0.6 oz pure alcoho l) very rare Sex Assigned at Date Recorded Not on file documented as of this encounter Patient Instructions Patient InstructionsRosa Cook LNA - 11/14/2012 1:03 PM EDT Welcome to [employer], your secure online access to your electronic medical record at [facility]. Using [employer] you will be able to send messages to your providers, view your test results, renew prescriptions, schedule appointments, and much more. Follow these instructions to enter your personal [employer] account for the first time: 1. Start your internet browser and type [email or web address] into the address bar. 2. In the New User box on the right-hand side of the Welcome page click the link that states, ???I have an activation code.?? 3. On the Identification page, follow these steps: a) Enter your [employer] activation code: [email or web address] b) Expires: 12/29/2012 1:03 PM IMPORTANT: This Activation Code will on the above mentioned date. If you do not sign up for [employer] by this date, you will need to request another activation code. c) Enter your date of , using the calendar tool provided. d) Enter your Zip code. e) Select ???submit?? to go to the next page. 4. On the Create Account page, follow these steps: a) Create a [employer] username. This can???t be changed, so choose one you won???t forget. b) Create a password that???s at least six characters long, and that contains at least two numbers. Your password can be changed at any time. Confirm your password by entering it once more. c) Enter your email address. This will be used to alert you to new information. Confirm your email address by entering it once more. d) Enter your security question. This will be used if you forget your password. e) Enter your security answer. Confirm your security answer by entering it once more. f) Select ???submit?? to view your electronic medical record. If you have any questions about [employer] or your Access Code, please call for [place], for [place] or for [place]. If you need technical support, please e-mail [email or web address]. Remember, [employer] is NOT for urgent needs! Always dial 911 for medical emergencies. documented in this encounter Progress Notes Isabelle Gruber, ROLL OPERATOR - 11/14/2012 1:32 PM EDT CHIEF COMPLAINT: Back pain, left leg symptoms. HISTORY OF PRESENT ILLNESS: Ms. Chavez has a long history of back problems, in fact, I saw her in 2008 for back pain, and facet injections were done at that time. She has subsequently been seen by Dr. Frazier. She returns today for ongoing back and leg symptoms. Symptoms today include daily low back pain [...] the pain in her back anywhere from 6 to 10/10. She has had no prior spine surgeries. REVIEW OF SYSTEMS: Positive for having chest pressure when she was in the hyperbaric chamber. This has been worked up. She has noted increase in bruising, and during our visit had to stop her conversation related to a wave of nausea. SOCIAL HISTORY: She smokes half a pack a day and was advised to quit. She is a nondrinker, is on social security disability related to cancer. OBSERVATION: She is pleasant, searches for words during the conversation, and sometimes the history does not seem consistent when repeated. She relates that to the mass in her brain. She has a stated height of 5 feet 3 inches. Stated weight of 232 pounds. She walks with sort of an odd gait, more on her toes, can toe walk, but had declined to heel walk. She does not stand on both legs having her left leg more likely to be bent at the knee. She has pain with palpation from C7 to T4 and again from L4 to the sacrum. From the waist, flexes forward to below her knee. She extends about 10 degrees, has increased lower back pain with this. She has normal motor evaluation of 5/5, normal sensory evaluation to touch. I am unable to obtain a left knee reflex, 2+ on the right and 2+ at both heels. Straight leg raise causes pain in the posterior calf and down her leg. Neyda maneuvers are negative. I have deferred the femoral stretch due to the amount of discomfort that she has with just laying and moving. She has no clonus, no Babinski, palpable pulses x2. IMAGING: None. IMPRESSION: Chronic back pain. PLAN: Shraddha Chavez is a pleasant 52-year-old female that I have met a number of years ago for her ongoing back pain, which has continued to this day. We tried facet injections, which were not helpful and she was subsequently seen by Dr. Frazier of our pain clinic. She has recently been seen by the lower extremity team and referred here to the spine center for ongoing back pain. 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 I think due to the issues with her brain, she is a somewhat confusing and inconsistent historian, but is quite pleasant. Today, she describes having more leg pain than back pain. This can be rated anywhere from 6 to 10/10 that comes on with walking and standing. Does not feel better bent over, but does feel better with ice. Her pain seems to follow a L5-S1 pattern, and she does have a positive straight leg raise on the left. We have discussed treatment options. I think, given the fact that she continues to have symptoms and is interested in treatment options, we will obtain a standing flexion and extension view of her lumbar spine as well as an MRI. I will see her back in followup and at that point, we will discuss any additional injections or a surgical consult. I have not made any changes in her medications. I had tried to order her images with gado, but she has a sensitivity and the medications That were suggested interact with those she is on. Will consider a bone scan if needed. documented in this encounter Plan of Treatment Not on filedocumented as of this encounter Results XR lumbar spine minimum [...] radiating to left leg - Primary Lumbago Impaired contrast sensitivity Other specified visual disturbances LBP radiating to left leg Lumbago documented in this encounter Care Teams Rn Urology Relationship Specialty Start Date End Date Michela Stevenson APRN PCP - General 04/29/10 06/07/16 documented as of this encounter
--- OUTSIDE RECORDS SUMMARY | 2022-05-06 08:20 | XMS_ITS | Encounter Summary ---
:1960 Author Organization [facility] [place] [address] Care Team Providers Name Role Phone Graham Michela Stanley APRN Primary Care Provider Encounter Details Date Type Department Care Team Description 11/03/2012 [facility] [address] RADIATION ONCOLOGY [place], [place] [phone] [place] [address] (Wo rk) Social History Tobacco Use Types Packs/Day Years Used Date Smoking Tobacco: Former Cigarettes 0.3 37 Quit : 05/21/2010 Smokeless Tobacco: Never Alcohol Use Standard Drinks/Week Comments Yes 0 (1 standard drink = 0.6 oz pure alcoho l) very rare Sex Assigned at Date Recorded Not on file documented as of this encounter Miscellaneous Notes Telephone Encounter - Domonique James APRN - 11/03/2012 4:23 PM EDT Call from Shraddha who is tearful indicating that she has not been able to go for her hyperbaric oxygen therapy for the last couple of days due to lack of money for gas. She had difficulty with treatmenton Wednesday because she developed a severe headache so had to stop before completion. She would like to go tomorrow but has no money. Discussed above with Isabelle Quigley MSW who will explore options to assist patient with transportation needs. documented in this encounter Plan of Treatment Not on filedocumented as of this encounter Visit Diagnoses Not on filedocumented in this encounter Care Teams Car Driver Relationship Specialty Start Date End Date Michela Stevenson APRN PCP - General 04/29/10 06/07/16 documented as of this encounter
--- OUTSIDE RECORDS SUMMARY | 2022-05-06 08:20 | XMS_ITS | Encounter Summary ---
:1960 Author Organization [facility] [place] [address] Care Team Providers Name Role Phone Michela Stevenson APRN Primary Care Provider Reason for Visit Reason Onset Date Comments Medication Refill 10/10/2012 Encounter Details Date Type Department Care Team Description 10/10/2012 Refill Hematology Oncology at [place], Geovanny Brandt APRN Vitamin E deficiency [address] (Primary Dx) [address] [facility] [place] [id number] (Wo rk) Social History Tobacco Use Types [...] as of this encounter Visit Diagnoses Diagnosis Vitamin E deficiency - Primary Deficiency of other vitamins documented in this encounter Care Teams Banquet Captain Relationship Specialty Start Date End Date Michela Stevenson APRN PCP - General 04/29/10 06/07/16 documented as of this encounter
--- OUTSIDE RECORDS SUMMARY | 2022-05-06 08:20 | XMS_ITS | Encounter Summary ---
:1960 Author Organization [facility] [place] [address] Care Team Providers Name Role Phone Stevenson, Michela Stanley APRN Primary Care Provider Reason for Visit Reason Comments On Treatment Visit HBOT #4 Encounter Details Date Type Department Care Team Description 10/13/2012 Office Visit Center for Hyperbaric Radiat ion injury of brain Medicine at [facility] (Primary Dx) [place] [address] Social History Tobacco Use Types Packs/Day [...] Sign Reading Time Taken Comments Blood Pressure 121/50 10/13/2012 11:10 AM EDT Pulse 63 10/13/2012 11:10 AM EDT Temperature 37.1 ??C (98.7 ??F) 10/13/2012 9:20 AM EDT Respiratory Rate 18 10/13/2012 11:10 AM EDT Oxygen Saturation - - Inhaled Oxygen Concentration - - Weight - - Height - - Body Mass Index - - documented in this encounter Progress Notes Meghan Durham APRN - 10/13/2012 9:47 AM EDT Subjective: Patient ID: Shraddha Chavez [...] oxygen treatments initiated for post radiation injury. 10/13/12:Ms. Chavez reports an increase in seasonal allergy symptoms overnight. Review of Systems Constitutional: Negative for fever, chills and appetite change. HENT: Positive for rhinorrhea and sneezing. Negative for ear pain and ear discharge. She reports an increase in seasonal allergy symptoms. Eyes: Negative for pain and visual disturbance. Respiratory: Negative for cough and [...] exhibits no discharge. Cardiovascular: Normal rate. Pulmonary/Chest: Effort normal. No respiratory distress. Neurological: She is alert and oriented to person, place, and time. Skin: Skin is warm and dry. She is not diaphoretic. Psychiatric: She has a normal mood and affect. Assessment and Plan: INTERVAL HISTORY: Visual Change: Denies SOB: Denies Headaches: Denies Cough:Denies Ear Pain: Denies Chest Pain: Denies Cold symptoms:She reports allergy symptoms. Shraddha Chavez received hyperbaric oxygen treatment today for adverse effects of radiation. 400 IU vitamin E taken before treatment. Chamber settings checked via checklist. Patient placed in chamber, communications checked, and ground strap attached. Meghan Durham APRN Administered the treatment and monitored the patient. HYPERBARIC TREATMENT: Number-4 Planned number of treatments-40 Compression Rate:1.5 Decompression Rate:2.0 ALMAZ-2.0 Treatment Time-90 minutes Chamber time- 116 Minutes- Sechrist Chamber Air Breaks-One 10 minute air break Education/Instruction: Clearing of ears:Reviewed techniques Treatment Notes: Ms. Chavez tolerated treatment well today. Continue HBOT as scheduled. documented in this encounter Plan of Treatment Not on filedocumented as of this encounter Visit Diagnoses Diagnosis Radiation injury of brain - Primary Intracranial injury of other and unspeci fied nature, without mention of open intracranial wound, unspecified state of consciousness documented in this encounter Care Teams Dairy Farm Manager Relationship Specialty Start Date End Date Michela Stevenson APRN PCP - General 04/29/10 06/07/16 documented as of this encounter
--- OUTSIDE RECORDS SUMMARY | 2022-05-06 08:20 | XMS_ITS | Encounter Summary ---
:1960 Author Organization [facility] [place] [address] Care Team Providers Name Role Phone Michela Stevenson [place] Primary Care Provider Reason for Visit Reason Comments On Treatment Visit HBOT # 21 Encounter Details Date Type Department Care Team Description 11/14/2012 Office Visit [facility]ic Rad[facility] [place] [facility] [place] [address] Social History Tobacco Use Types Packs/Day [...] Sign Reading Time Taken Comments Blood Pressure 136/70 11/14/2012 11:00 AM EDT Pulse 64 11/14/2012 11:00 AM EDT Temperature 36.9 ??C (98.5 ??F) 11/14/2012 9:15 AM EDT Respiratory Rate - - Oxygen Saturation - - Inhaled Oxygen Concentration - - Weight - - Height - - Body Mass Index - - documented in this encounter Progress Notes Aym Peterson RN - 11/14/2012 11:28 AM EDT INTERVAL HISTORY: since November Visual Change:denies SOB: denies Headaches: continues to have the pressure in her brain that she has had for years. Is very discouraged about this. Cough:denies Ear Pain:denies Chest Pain:denies Cold symptoms: denies Other:continues to have nausea and vertigo. Saw her PCP on November 11 for these issues. PCP has referredher to a neurologist, appointment is scheduled for December 11. Shraddha is very discouraged that she is not getting better and feels she is having problems more frequently. Shraddha Chavez received hyperbaric oxygen treatment today for radiation injury to the brain. 400 IU vitamin E taken before treatment. 100% cotton clothing in place. Patient checked for non-approved chamber items. Grounding strap applied and grounding verified,patient placed in chamber,communications checked. Amy Peterson RN Administered the treatment and monitored the patient. HYPERBARIC TREATMENT: Number- 21 Planned number of treatments- 40 Compression Rate:1.5psi/min Decompression Rate: 2.0psi/min ALMAZ- 2.0 Treatment Time- 90 minutes Chamber time- 116 Minutes- Sechrist Chamber Air Breaks-One 10 minute air break Treatment Notes: Tolerated HBOT well, no issues during treatment. TMs appear normal. Shraddha met withDr. Biggs after her treatment today to discuss her concerns and frustrations. Encouraged to continue with HBOT as planned and keep appointment with neurologist. documented in this encounter Plan of Treatment Not on filedocumented as of this encounter Visit Diagnoses Diagnosis Radiation injury of brain - Primary Intracranial injury of other and unspeci fied nature, without mention of open intracranial wound, unspecified state of consciousness documented in this encounter Care Teams Yarn Weight And Strength Tester Relationship Specialty Start Date End Date Michela Stevenson APRN PCP - General 04/29/10 06/07/16 documented as of this encounter
--- OUTSIDE RECORDS SUMMARY | 2022-05-06 08:20 | XMS_ITS | Encounter Summary ---
:1960 Author Organization [facility] [place] [address] Care Team Providers Name Role Phone Fletcher Verdin [place] Primary Care Provider Reason for Visit Reason Comments Back Pain Encounter Details Date Type Department Care Team Description 11/30/2012 Procedure visit Pain Management at Alison Mendez MD [address] [place] [address] Low back pain [facility] Nell Mendez MD [facility] [place] [address] (Primary Dx) [place] [phone] Social History Tobacco Use Types Packs/Day Years [...] Sign Reading Time Taken Comments Blood Pressure 124/82 11/30/2012 11:34 AM EDT Pulse 117 11/30/2012 11:34 AM EDT Temperature - - Respiratory Rate 16 11/30/2012 11:34 AM EDT Oxygen Saturation 97% 11/30/2012 11:34 AM EDT Inhaled Oxygen Concentration - - Weight 101.2 kg (223 lb) 11/30/2012 11:32 AM EDT Height 160 cm (5' 3) 11/30/2012 11:32 AM EDT Body Mass Index 39.5 11/30/2012 11:32 AM EDT documented in this encounter Progress Notes Dinora De La Vega MD - 11/30/2012 11:48 AM EDT Pain Management note Ms. Chavez was scheduled to undergo LESI today, after being referred to us by Isabelle Gruber. Unfortunately her allergy list includes both Lidocaine and Cortisone. 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 These appear to have been well tolerated. However, Ms. 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 Even more concerning, she reports having a med that started with a C which resulted in her feeling poorly and requiring her to be treated with ice packs for multiple hours.She believes that this happened while in a Pain Clinic. Unfortunately she will require further work-up before we can safely perform a LESI, which should include an icebox man evaluation. Dr. Mendez has spoken with her PCP by phone and this eval will be done.She can return to Pain Clinic with this information if she desires. Plan: Evaluation by icebox man including amide and rakesh local anesthesthetics, steroids, and iodonated dye. Please CC FLETCHER VERDIN APRN and Isabelle Gruber Return to pain clinic for intervention once eval completed I concur with the above plan. This was reviewed in detail with Dr. De La Vega. NELL MENDEZ MD Malika Thorpe RN - 11/30/2012 11:33 AM EDT Pre-Procedure Screening Questions: 1. Status: No 2. 3. Patient states they have a driver guard to transport after procedure? Yes 4. Patient taking antibiotics at present? No 5. NPO per [facility] protocol? No 6. 7. Patient diabetic: No __ borderline (not treated with medications) __ managed with oral medications __ managed with injected medications 8. Patient routinely taking anticoagulants ? No Date stopped Current INR Patient Vital Signs documented in Doc Flowsheets associated with this encounter. Patient Discharge Instructions were reviewed with patient and copy provided to patient. documented in this encounter Plan of Treatment Not on filedocumented as of this encounter Visit Diagnoses Diagnosis Low back pain - Primary Lumbago documented in this encounter Care Teams Weaving Supervisor Relationship Specialty Start Date End Date Fletcher Verdin APRN PCP - General 04/29/10 06/07/16 documented as of this encounter
--- OUTSIDE RECORDS SUMMARY | 2022-05-06 08:20 | XMS_ITS | Encounter Summary ---
:1960 Author Organization [facility] [place] [address] Care Team Providers Name Role Phone Michela Stevenson APRN Primary Care Provider Reason for Visit Reason Comments Medication Refill Encounter Details Date Type Department Care Team Description 10/05/2012 [facility] [address] [place] [address] [place] [address] [phone] (Wo rk) Social History Tobacco Use Types [...] on filedocumented in this encounter Care Teams Design Engineer Relationship Specialty Start Date End Date Michela Stevenson APRN PCP - General 04/29/10 06/07/16 documented as of this encounter
--- OUTSIDE RECORDS SUMMARY | 2022-05-06 08:21 | XMS_ITS | Encounter Summary ---
:1960 Author Organization [facility] [place] [address] Care Team Providers Name Role Phone Luz Stevensonmaurice Stanley APRN Primary Care Provider Encounter Details Date Type Department Care Team Description 09/01/2012 Orders Only Radiation Oncology at [facility] [place] (Primary Dx); Malika Alex APRN Radiation effect [address] [place] [address] [phone] Social History Tobacco Use Types Packs/Day Years Used Date Smoking Tobacco: Every Day Cigarettes 0.3 37 L ast attempted to quit: 05/21/2010 Smokeless Tobacco: Never Comments: 3 cigarettes a day Alcohol Use Standard Drinks/Week Comments Yes 0 (1 standard drink = 0.6 oz pure alcoho l) very rare Sex Assigned at Date Recorded Not on file documented as of this encounter Progress Notes Domonique James APRN - 09/01/2012 9:22 AM EDT Call form patient indicating that she continues with nausea that is not controlled with compazine. She will be starting hyperbaric oxygen therapy in October and hopes that in time this will reduce her symptoms. She has an appointment with her neurologist tomorrow but feels she needs medication today to manage her symptoms. We will order zofran and patient will follow up with her neurologist 09/02 documented in this encounter Plan of Treatment Not on filedocumented as of this encounter Visit Diagnoses Diagnosis Nausea - Primary Nausea alone Radiation effect Effects of radiation, unspecified documented in this encounter Care Teams Physician Assistant Surgery Relationship Specialty Start Date End Date Michela Stevenson APRN PCP - General 04/29/10 06/07/16 documented as of this encounter
--- OUTSIDE RECORDS SUMMARY | 2022-05-06 08:21 | XMS_ITS | Encounter Summary ---
:1960 Author Organization [facility] [address] Care Team Providers Name Role Phone Michela Stevenson APRN Primary Care Provider Reason for Visit Reason Onset Date Comments Other 06/16/2012 Encounter Details Date Type Department Care Team Description 06/16/2012 Telephone Radiation Oncology at [facility]on[facility] Pratt APRN Other [address] [place] [address] [place] [address] [phone] (Wo rk) Social History Tobacco Use Types Packs/Day Years Used Date Smoking Tobacco: Former Cigarettes 0.3 37 Quit : 05/21/2010 Smokeless Tobacco: Never Comments: 3 cigarettes a day Alcohol Use Standard Drinks/Week Comments Yes 0 (1 standard drink = 0.6 oz pure alcoho l) very rare Sex Assigned at Date Recorded Not on file documented as of this encounter Miscellaneous Notes Telephone Encounter - Domonique James APRN - 06/16/2012 2:06 PM EST Call from Michela reporting that she wants to change neurologist to someone closer to her home. She has gotten the name of a neurologist at [facility] who accepts patients. Referral was made and copies of notes sent to MD office. documented in this encounter Plan of Treatment Not on filedocumented as of this encounter Visit Diagnoses Not on filedocumented in this encounter Care Teams Awake Overnight Counselor Relationship Specialty Start Date End Date Michela Stevenson APRN PCP - General 04/29/10 06/07/16 documented as of this encounter
--- OUTSIDE RECORDS SUMMARY | 2022-05-06 08:21 | XMS_ITS | Encounter Summary ---
:1960 Author Organization [facility] Address [address] [address] Care Team Providers Name Role Phone Michela Stevenson [place] Primary Care Provider Reason for Visit Reason Comments Follow Up Surgery Encounter Details Date Type Department Care Team Description 05/18/2012 Follow-Up General Surgery at Stephanie Benedict [place] (Primary Dx) [facility]TER [facility] [place] [address] GENERAL SURGERY [phone] [place], [place] [address] (Wo rk) Social History Tobacco [...] encounter Progress Notes Stephanie Benedict APRN - 05/18/2012 11:22 AM EST Shraddha is a 52 y[address] Pt of Dr Barnhart who returns for surgical follow up. By way of history, she initially presented in 09/2009 after a routine screening mammography performed08/14. This revealed a spiculated mass in the deep, central right breast with associated pleomorphic calcifications. Mass was approximately 2.3cm. U/S confirmed a solid mass with smaller dimensions 1.4cm). 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 MRI was then performed for surgical [...] carcinoma with lobular features, right breastTumor was ER/WY positive, HER-2/viktoria negative. One lymph node was microscopically positive with foci less than 0.2 mm. The other twonodes were negative She was treated by Dr. Lugo with 4 cycles of AC followed by whole breast xrt. She has an AVM and has been treated by Dr Tadeo today. Mammogram 05/2011 cat 1. Right medial US 12/2011 for pain was cat 1. Next bilateral mammogram is scheduled for 06/2012. No breast concerns today. Physical Examination: In general, the patient is [...] sentinel node excision, AC x4 and xrt. Plan follow up 06/2013 with a bilateral mammogram at that time. Shraddha will call me before then with any new concerns. 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
--- OUTSIDE RECORDS SUMMARY | 2022-05-06 08:21 | XMS_ITS | Encounter Summary ---
:1960 Author Organization [facility] [place] [address] Care Team Providers Name Role Phone Michela Stevenson [place] Primary Care Provider Reason for Visit Reason Onset Date Comments Other 06/06/2012 Encounter Details Date Type Department Care Team Description 06/06/2012 Telephone Neurology at [facility] [place] [place] Scot Garcia MD Other [facility] [place] [phone] NEUROLOGY DEPT [phone] [place], [place] [address] (Wo rk) Social History Tobacco [...] this encounter Miscellaneous Notes Telephone Encounter - Scot Garcia - 06/06/2012 3:38 PM EST Called patient and vistaril prescribed Telephone Encounter - Faith Layton - 06/06/2012 1:36 PM EST Patient called today to ask for a prescription refill for the anti nausea medication prior to appointment in June with Dr. Garcia documented in this encounter Plan of Treatment Not on filedocumented as of this encounter Visit Diagnoses Not on filedocumented in this encounter Care Teams [employer] Worker Relationship Specialty Start Date End Date Michela Stevenson APRN PCP - General 04/29/10 06/07/16 documented as of this encounter
--- OUTSIDE RECORDS SUMMARY | 2022-05-06 08:21 | XMS_ITS | Encounter Summary ---
:1960 Author Organization [facility] [place] [address] Care Team Providers Name Role Phone Michela Stevenson [place] Primary Care Provider Reason for Visit Reason Comments Breast Cancer Encounter Details Date Type Department Care Team Description 07/05/2012 Follow-Up Hematology Oncology at Bang Lugo MD Breast cancer (Primary [address] DR Dx) [address] [place] [phone] Social History Tobacco Use Types Packs/Day Years [...] Sign Reading Time Taken Comments Blood Pressure 133/80 07/05/2012 2:23 PM EST Pulse 104 07/05/2012 2:23 PM EST Temperature 36.8 ??C (98.2 ??F) 07/05/2012 2:23 PM EST Respiratory Rate 18 07/05/2012 2:23 PM EST Oxygen Saturation 97% 07/05/2012 2:23 PM EST Inhaled Oxygen Concentration - - Weight 108.9 kg (240 lb) 07/05/2012 2:23 PM EST Height 160 cm (5' 2.99) 07/05/2012 2:23 PM EST Body Mass Index 42.52 07/05/2012 2:23 PM EST documented in this encounter Progress Notes Jessica Clarke RN - 07/06/2012 1:47 PM EST Addended by: JESSICA CLARKE on: 07/06/2012 01:47 PM Modules accepted: Orders Schuyler Lugo MD - 07/05/2012 2:55 PM EST DIAGNOSIS: 1. 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 ER positive, HER-2/viktoria negative, with one lymph node microscopically positive, other two negative. 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 SUBJECTIVE: Shraddha comes in today for followup. She is currently having problems with arthritis-typesymptoms. She has a history of rotator cuff problems and is being seen for that but in talking to her today she notes that really all of her joints are hurting and is fairly significant. She has been tapered off steroids and it seems that things exacerbated when she got off of those. She's not noticedany lumps or bumps or other problems as far as her breast cancer goes. Past medical history and social history are reviewed and unchanged. Review of Systems Constitutional: Negative for fever, chills, activity change, fatigue and unexpected weight change. HENT: Negative for sore throat, mouth sores and trouble swallowing. Eyes: Negative. Respiratory: Negative for cough, shortness of breath and wheezing. Cardiovascular: Negative for chest pain, palpitations and leg swelling. Gastrointestinal: Negative for nausea, vomiting, abdominal pain, diarrhea, constipation and abdominal distention. Genitourinary: Negative for dysuria and difficulty urinating. Musculoskeletal: Negative. Skin: Negative. Neurological: Negative. Hematological: Negative for adenopathy. Head: Normocephalic, without obvious abnormality, atraumatic Eyes: PERRL, conjunctiva/corneas clear, EOM's intact, fundi benign, both eyes Ears: Normal TM's and external ear canals, both ears Nose: Nares normal, septum midline, mucosa normal, no drainage or sinus tenderness Throat: Lips, mucosa, and tongue normal; teeth and gums normal Neck: Supple, symmetrical, trachea midline, no adenopathy, thyroid: not enlarged, symmetric, no tenderness/mass/nodules, no carotid bruit or JVD Back: Symmetric, no curvature, ROM normal, no CVA tenderness Lungs: Clear to auscultation bilaterally, respirations unlabored Chest Wall: No tenderness or deformity. Pressure on the breast does not make the pain worse. There is no palpable abnormalities in the skin is absolutely clear with no vesicles or rash noted whatsoever. Heart: Regular rate and rhythm, S1, S2 normal, no murmur, rub or gallop Abdomen: Soft, non-tender, bowel sounds active all four quadrants, no masses, no organomegaly Extremities: Extremities normal, atraumatic, no cyanosis or edema Pulses: 2+ and symmetric Skin: Skin color, texture, turgor normal, no rashes or lesions Lymph nodes: Cervical, supraclavicular, and axillary nodes normal Neurologic: Normal Her CBC and CMP today are completely normal. Creatinine is 1.2. ALP is normal at 77. Assessment/Plan: Shraddha Is in remission and has no evidence of recurrent breast cancer. She is having symptoms that could suggest joint and muscle problems from her aromatase inhibitor. In this regard we'll go ahead and stop the medication and put her on tamoxifen 20 mg daily. Risks and side effects were gone over in detail. She has had a hysterectomy so uterine cancer is not a consideration. We did this test the slight increased risk of blood clots stroke or venous thrombosis. There is a low risk for all 3. She'll start tamoxifen 20 mg daily and we'll see her back in a month to see if things improve. If things arenot better I would favor putting her back on the Femara. documented in this encounter Plan of Treatment Not on filedocumented as of this encounter Visit Diagnoses Diagnosis Breast cancer - Primary Malignant neoplasm of breast (female), u nspecified site documented in this encounter Care Teams Tank Builder Relationship Specialty Start Date End Date Michela Stevenson APRN PCP - General 04/29/10 06/07/16 documented as of this encounter
--- OUTSIDE RECORDS SUMMARY | 2022-05-06 08:21 | XMS_ITS | Encounter Summary ---
:1960 Author Organization [facility] [place] [address] Care Team Providers Name Role Phone Michela Verdin [place] Primary Care Provider Encounter Details Date Type Department Care Team Description 09/02/2012 Hospital Encounter Radiology at [facility] [place] YOBANI CHOWDARY ([facility], Gregory Doran MD [facility] [place] [address] malformation) [place] [phone] Social History Tobacco Use Types Packs/Day Years [...] Reading Time Taken Comments Blood Pressure 113/71 09/02/2012 3:30 PM EDT Pulse 81 09/02/2012 3:30 PM EDT Temperature 36.1 ??C (97 ??F) 09/02/2012 11:55 AM EDT Respiratory Rate 18 09/02/2012 3:30 PM EDT Oxygen Saturation 98% 09/02/2012 3:30 PM EDT Inhaled Oxygen Concentration - - Weight 107.5 kg (237 lb) 09/02/2012 9:00 AM EDT Height - - Body Mass Index 41.98 08/01/2012 10:13 AM EST documented in this encounter Discharge Instructions Discharge InstructionsMarkus Sanchez RN - 09/02/2012 11:55 AM EDT [facility] Interventional Radiology Post Angiography Instructions Procedure: Cerebral angiogram Puncture Site: Right groin Date: 09/02/2012 Physician: Kiara 1. At home we advise you to rest quietly in bed or on the couch with your hip straight until the next morning. Until the next morning you may get up only to go to the bathroom. 2. Resume your previous diet. Drink 6-8 ounces of fluid per hour for the next 8 hours. Avoid alcoholic or caffeinated beverages for 24 hours. 3. Avoid strenuous activity for the next 48 hours, particularly in the next 24 hours. Stair climbingshould be kept to a minimum. Do not lift objects heavier than 10-15 pounds for the next 48 hours. 4. If you develop bulging under the skin or bleeding at the puncture site, put direct pressure on the puncture site for 15 minutes and call your doctor. If the bleeding persists, reapply pressure, and go to your local Emergency Department. 5. If you notice a sudden change in the feeling (numbness, tingling and/or pain) of your leg on the side of the puncture call your doctor. 6. You may develop a bruise at the puncture site. This should go away within a week to 10 days. If abulge develops after the first three days, call your doctor or the Radiology/Vascular Department here. Report signs of infection (redness, swelling, discharge, soreness, or fever) to your doctor. 7. Leave the bandage on for 24-48 hours. You may shower the following day after the procedure. You should NOT swim or tub bathe for [address] for 24 hours after the procedure. Do not sign any important documents or smoke unattended for 24 hours. You may return to work with the above restrictions on . XX 9. If you have any questions or concerns, please call Interventional Radiology Department at until 6pm. After 6pm, or on weekends or hoildays, call and ask for the residential carpenter ent surgeon. 10. If you are a diabetic and take Metformin or Janumet, Do not take it for 2 days after the procedure. XX You have received medication during your procedure to help lesson anxiety and keep you comfortable and which affects judgement and reaction time. We recommend that you do not drive, operate equipment, sign any important documents, or smoke unattended for 24 hours following your procedure. Because of the sedation please be careful on stairs, as you may be unsteady on your feet. You may resume your regular diet as tolerated. IV site -- slight redness, or tenderness is normal, you can use a warm compress. If tenderness and redness increases or foul drainage occurs, please contact your M. D. 06/19/11 documented in this encounter Medications at Time of Discharge Medication Sig Dispensed Refills Start Date End Date prochlorperazine Take 10 mg by 0 01/27/201208/19 (COMPAZINE) 10 mg Tablet mouth. ondansetron (ZOFRAN) 8 mg Take 1 tablet by 20 tablet 3 08/0608/31/2013 tabletIndications: Nausea, mouth every 8 Radiation effect hours as needed for Nausea. omeprazole (PRILOSEC) 40 mg Take 40 mg by 0 11/14/2012 capsule mouth daily. prochlorperazine Take 10 mg by 0 11/14 (COMPAZINE) 10 mg tablet mouth every 6 hours as needed. aspirin 325 mg tablet Take 325 mg by 0 10/09/2013 mouth daily. tamoxifen (NOLVADEX) 20 mg Take 1 tablet by 30 tablet 12 08/01/2013 tabletIndications: Breast mouth daily. cancer loratadine (CLARITIN) 10 mg Take 1 tablet by 30 tablet 1 12/14/2013 tablet mouth daily. vitamin E 400 unit Take 1 capsule by 60 capsule 3 02/01/2012 10/05/2012 capsuleIndications: AVM mouth 2 times (arteriovenous daily. malformation) VITAMIN B COMPLEX Take 1 tablet by 0 11/27/2010 0 02/14/2013 ORALIndications: Breast CA mouth daily. documented as of this encounter Progress Notes Osmani Girard MD - 09/02/2012 9:31 AM EDT PRE-PROCEDURE VIR NOTE INPATIENT Date of : 1960 Age: 52 y.o. PCP: MICHELA VERDIN APRN Referring Physician (if different): Indication: History of avm which has been treated to check for any residual Planned Procedure: cerebral angiogram Chief Complaint/Diagnosis:headache Pertinent Past Medical/Surgical History: Patient Active Problem List Diagnoses Code ??? Breast CA 174.9 ??? Blurry vision 368.8 ??? AVM (arteriovenous malformation) 747.60 ??? Allergy, drug 995.27 ??? 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 Hx of total knee replacement V43.65 Past Surgical History Procedure Date ??? Hysterectomy ovaries not removed ??? Rotator cuff repair ??? Carpal tunnel release bilateral Allergies Allergen Reactions ??? Adhesive Tape Localized Reaction ??? Codeine Phosphate Hives, Nausea And Vomiting and Rash ??? Gloves, Latex Itching and Rash ??? Hydrocodone-Acetaminophen Nausea And Vomiting [...] Antibiotics) Hives ??? Tramadol Nausea And Vomiting Inpatient Medications: omeprazole (PRILOSEC) 40 mg capsule; aspirin 325 mg tablet; tamoxifen (NOLVADEX) 20 mg tablet; loratadine (CLARITIN) 10 mg tablet; vitamin E 400 unit capsule; VITAMIN B COMPLEX ORAL; ondansetron (ZOFRAN) 8 mg tablet; prochlorperazine (COMPAZINE) 10 mg tablet Pertinent ROS: as per HPI History Social History ??? Marital Status: Spouse Name: N/A Number of Children: N/A ??? Years of Education: N/A Social History Main Topics ??? Smoking status: Current Everyday Smoker -- 0.2 packs/day for 37 years Types: Cigarettes Last Attempt to Quit: 05/21/2010 ??? Smokeless tobacco: Never Used Comment: 3 cigarettes a day ??? Alcohol Use: Yes very rare ??? Drug Use: No ??? Sexually Active: Not on file deferred Other Topics Concern ??? Not on file Social History Narrative ??? No narrative on file Labs: Lab Results Component Value Date WBC 9.3 08/12/2010 HCT 41.8 08/12/2010 PLATELET 270 08/12/2010 INR 0.9 06/19/2010 BUN 21* 08/12/2010 Lab Results Component Value Date ALKPHOS 78 08/12/2010 AST 33* 08/12/2010 ALBUMIN 4.8 08/12/2010 BILIDIR 0.1 08/12/2010 BILITOT 0.3 08/12/2010 ALT 46* 08/12/2010 Imaging: Physical exam,orinted x 3 neuro exam normal moving all 4 limbs ASA class 2, Mallampati 1 Assessment / Plan: Medications to discontinue: none Prophylactic antibiotic:none Planned access site / position: right groin Vy Parisi RN - 08/29/2012 2:58 PM EDT [facility] NURSING DATABASE Name: SHRADDHA CHAVEZ Date of : 1960 AGE 52 y.o. Address: [address] [place] [phone] (home) Mobile: Telephone Information: Referring Provider: Gregory Tadeo Reason for Visit: Cerebral Angiogram Ms. 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 There is extensive surrounding vasogenic edema. She was referred for a hyperbaric oxygen consultation to determine if this would be a reasonable choice to treat her symptoms. Allergies Allergen Reactions ??? Adhesive Tape Localized Reaction ??? Codeine Phosphate Hives, Nausea And Vomiting and Rash ??? Gloves, Latex Itching and Rash ??? Hydrocodone-Acetaminophen Nausea And Vomiting [...] Antibiotics) Hives ??? Tramadol Nausea And Vomiting Pertinent PMH: Patient Active Problem List Diagnoses Code ??? Breast CA 174.9 ??? Blurry vision 368.8 ??? AVM (arteriovenous malformation) 747.60 ??? Allergy, drug 995.27 ??? 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 Hx of total knee replacement V43.65 Past Medical History Diagnosis Date ??? Cerebral AVM ??? Breast cancer ??? Arthritis ??? GERD (gastroesophageal reflux disease) ??? Allergy Pertinent PSH: Past Surgical History Procedure Date ??? Hysterectomy ovaries not removed ??? Rotator cuff repair ??? Carpal tunnel release bilateral Date/Procedure Comments: 09/02/12 Cerebral Angiogram Versed 5mg/Fent 250mcg Laboratory Results: Lab Results Component Value Date INR 0.9 06/19/2010 Lab Results Component Value Date PT 12.7 06/19/2010 PTT 24* 06/19/2010 Lab Results Component Value Date BUN 21* 08/12/2010 Lab Results Component Value Date CREATININE 0.76 08/12/2010 Lab Results Component Value Date K 4.7 08/12/2010 Lab Results Component Value Date PLATELET 270 08/12/2010 Medications: Prior to Admission medications Medication Sig Start Date End Date Taking? Authorizing Provider omeprazole (PRILOSEC) 40 mg capsule Take 40 mg by mouth daily. Provider, MD Iona prochlorperazine (COMPAZINE) 10 mg tablet Take 10 mg by mouth every 6 hours as needed. Provider, MD Iona aspirin 325 mg tablet Take 325 mg by mouth daily. ProviderIona MD tamoxifen (NOLVADEX) 20 mg tablet Take 1 tablet by mouth daily. 07/27/12 Schuyler Lugo MD loratadine (CLARITIN) 10 mg tablet Take 1 tablet by mouth daily. 06/06/12 Scot Garcia MD vitamin E 400 unit capsule Take 1 capsule by mouth 2 times daily. 02/01/12 Domonique James APRN VITAMIN B COMPLEX ORAL Take 1 tablet by mouth daily. 11/27/10 ProviderIona MD For outpatient procedures: This patient has been informed that they require a cdl flatbed truck driver to drive them home after this procedure. In the absence of a cdl flatbed truck driver, IR will not be able to perform this procedure and will need to reschedule. Pt verbalized understanding of these instructions during the pre-procedure education via phone. documented in this encounter Miscellaneous Notes Miscellaneous - Provider, Scanning - 09/09/2012 9:13 AM EDT documented in this encounter Plan of Treatment Not on filedocumented as of this encounter Procedures Procedure Name Priority Date/Time Associated Comments Diagnosis IR ALL DIAGNOSTIC Routine 09/02/2012 11:51 AM AVM (arterioveno us Results for this ANGIOGRAMS EDT malformation) procedure are in the results section. documented in this encounter Results IR all diagnostic angiograms (09/02/2012 11:51 AM EDT) Anatomical Region Laterality Modality Vascular X-Ray Angiography Specimen (Source) Anatomical Collection Method Collection Time Re ceived Time Location / / Volume Laterality 09/02/2012 11:51 AM EDT Impressions 09/15/2012 8:28 PM EDT IMPRESSION: ?? 1. No evidence of residual arterial veno us malformation. Film and interpretation reviewed by the attending Narrative 09/15/2012 8:28 PM EDT Examination Cerebral angiogram Clinical History Patient was treated with SRS for left te mporal AVM in 2009. Procedure: Cerebral angiogram OPERATORS: ??Dr. Richardson Pardo. ??I, Richardson Craig was present for the entire procedure. ?? ANESTHESIA: ??Moderate sedation with int ravenous fentanyl and midazolam and monitoring by IR Nursing CONTRAST: ??50 cc Visipaque. ?? FLUOROSCOPY: ??A-plane 486 mGy, B-plane 335 mGy. ?? MATERIALS: ??Micropuncture set, 5Fr Pinn acle sheath, 0.035 3J wire, 0.035 Glidewire, 5Fr Alberto catheter DESCRIPTION: ?? The risks and benefits of the procedure were discussed with the patient and written informed consent was obtained. ? ?The patient was brought to the angiography suite and placed in the supi ne position. ??The right groin was sterilely prepped and draped. ??The righ t common femoral artery was accessed using a micropuncture set and a 5Fr mar th placed, flushed. ??The Alberto catheter was placed in the descending aorta over a 3J wire, flushed, and connected to a continuous heparinized saline infusion. The catheter was sequentially directed to the left internal carotid, left exter nal carotid, and left vertebral arteries. ??From each position, biplane cerebral angiography was obtained. ?? The catheter was removed, sheath removed , and hemostasis achieved with manual compression. ??The patient tolerated the procedure well and there were no immediate complications. ?? FINDINGS: ?? LEFT COMMON CAROTID ARTERY ROADMAP: ??Th e carotid bifurcation is without focal stenosis. ? LEFT INTERNAL CAROTID ARTERY INJECTION: ??The internal carotid artery and its intracranial branches are of normal cour se and caliber. There is no opacification of AVM nidus or presence o f early draining veins LEFT EXTERNAL CAROTID ARTERY INJECTION: The external carotid artery branches are of normal course and caliber. ?? LEFT SUBCLAVIAN ROADMAP: The subclavian and proximal cervical vertebral artery are without focal stenosis. ?? LEFT VERTEBRAL ARTERY INJECTION: ??The v ertebral, basilar, and posterior cerebral arteries and their branches are of normal course and caliber. There is no opacification of AVM nidus or presenc e of early draining vein. Procedure Note Richardson Craig MD - 09/15/2012Format ting of this note might be different from the original. Examination Cerebral angiogram Clinical History Patient was treated with SRS for left te mporal AVM in 2009. Procedure: Cerebral angiogram OPERATORS: Dr. Richardson Pardo. I, Richardson Craig was present for the entire procedure. ANESTHESIA: Moderate sedation with intra venous fentanyl and midazolam and monitoring by IR Nursing CONTRAST: 50 cc Visipaque. FLUOROSCOPY: A-plane 486 mGy, B-plane 33 5 mGy. MATERIALS: Micropuncture set, 5Fr Pinnac le sheath, 0.035 3J wire, 0.035 Glidewire, 5Fr Alberto catheter DESCRIPTION: The risks and benefits of the procedure were discussed with the patient and written informed consent was obtained. T he patient was brought to the angiography suite and placed in the supi ne position. The right groin was sterilely prepped and draped. The right common femoral artery was accessed using a micropuncture set and a 5Fr mar th placed, flushed. The Alberto catheter was placed in the descending aorta over a 3J wire, flushed, and connected to a continuous heparinized saline infusion. The catheter was sequentially directed to the left internal carotid, left exter nal carotid, and left vertebral arteries. From each position, biplane ce rebral angiography was obtained. The catheter was removed, sheath removed , and hemostasis achieved with manual compression. The patient tolerated the p rocedure well and there were no immediate complications. FINDINGS: LEFT COMMON CAROTID ARTERY ROADMAP: The carotid bifurcation is without focal stenosis. LEFT INTERNAL CAROTID ARTERY INJECTION: The internal carotid artery and its intracranial branches are of normal cour se and caliber. There is no opacification of AVM nidus or presence o f early draining veins LEFT EXTERNAL CAROTID ARTERY INJECTION: The external carotid artery branches are of normal course and caliber. LEFT SUBCLAVIAN ROADMAP: The subclavian and proximal cervical vertebral artery are without focal stenosis. LEFT VERTEBRAL ARTERY INJECTION: The malaika tebral, basilar, and posterior cerebral arteries and their branches are of normal course and caliber. There is no opacification of AVM nidus or presenc e of early draining vein. IMPRESSION IMPRESSION: 1. No evidence of residual arterial veno us malformation. 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, unspecified site documented in this encounter Administered Medications Inactive Administered Medications - up to 3 most recent administrations Medication Order MAR Action Action Date Dose Rate Site fentaNYL (PF) 50 mcg/mL injection 1 dose, Starting on Wed09/02/12 at 0943, Until 08/06 at 0945, VY PARISI: cabinet override fentaNYL 50mcg/mL injection Given 09/02/2012 9:45 AM EDT 250 mcg 25-50 mcg, Intravenous, EVERY 5 MIN PRN, Starting on Wed09/02/12 at 1103, Until Wed09/02/12 at 1105, Pain, Angio/IR (Intra-Procedure), Routine iodixanol (VISIPAQUE) 320 mg/mL injection Given 09/02/2012 11:42 AM EDT 50 mLs 150 mL 150 mL, Intra-arterial, ONCE PRN, 1 dose, Starting on Wed09/02/12 at 1141, Until Wed09/02/12 at 1142, Per Protocol, Angio/IR (Intra-Procedure), Routine midazolam (VERSED) 1 mg/mL injection 1 dose, Starting on Wed09/02/12 at 0944, Until 08/06 at 0945, VY PARISI: cabinet override midazolam (VERSED) injection 0.5-1 mg Given 09/02/2012 9:45 AM EDT 5 mg 0.5-1 mg, Intravenous, EVERY 5 MIN PRN, Starting on Wed09/02/12 at 1103, Until Wed09/02/12 at 1105, Anxiety, Angio/IR (Intra-Procedure), Routine documented in this encounter Care Teams Earth Moving Technician Relationship Specialty Start Date End Date Michela Verdin APRN PCP - General 04/29/10 06/07/16 documented as of this encounter
--- OUTSIDE RECORDS SUMMARY | 2022-05-06 08:21 | XMS_ITS | Encounter Summary ---
:1960 [place] [address] Care Team Providers Name Role Phone Michela Stevenson [place] Primary Care Provider Encounter Details Date Type Department Care Team Description 08/15/2012 Hospital Encounter MRI at [facility] ([facility] malformat ion) [place] [phone] Social History Tobacco Use Types Packs/Day [...] - Inhaled Oxygen Concentration - - Weight 107.5 kg (236 lb 15.9 oz) 08/15/2012 5:00 AM EDT Height - - Body Mass Index 41.98 08/01/2012 10:13 AM EST documented in this encounter Medications at Time of Discharge Medication Sig Dispensed Refills Start Date End Date prochlorperazine Take 10 mg by 0 01/27/201208/19 (COMPAZINE) 10 mg Tablet mouth. prochlorperazine Take 10 mg by 0 11/14 [...] Diagnosis Comme nts MRI BRAIN WWO Routine 08/15/2012 1:03 PM AVM (arteriovenous Re sults for this CONTRAST (GENERIC) EDT malformation) procedur e are in the results section. documented in this encounter Results MRI brain with/WO contrast (08/15/2012 1:03 PM EDT) Anatomical Region Laterality Modality Head Magnetic Resonance Specimen (Source) Anatomical Collection Method Collection Time Re ceived Time Location / / Volume Laterality 08/15/2012 1:03 PM EDT Narrative 08/15/2012 5:17 PM EDT Examination MR BRAIN W/WO CONTRAST Clinical History AVM ?? S/P Radiosurgery ? RT effect as well as AVM partial repso nse ??Please eval for further AVM response as well as response of treatmen t effect Comparison MRI of the brain of 01/29/2012. Technique MRI of the brain was obtained both befor e and after the administration of 10 mL Gadavist. ??Noncontrast MRA of the head was obtained. Findings At the site of the former arteriovenous malformation there is now a area of rim enhancement with mild mass effect and ex tensive surrounding vasogenic edema. ?? The extent of abnormal enhancing tissue and edema are markedly greater than they had been the study of January 2012. ??There is minor effacement of sulci and very slight rightward midline shift but no downward herniation. ??There is no intracranial hemorrhage or extra-axial c ollection. Paranasal sinuses and mastoids are clear . ??The intracranial flow voids show no abnormality. ??The orbits are of normal appearance. ?? MRA: ??There is no remaining flow-relate d enhancement at the site of the arteriovenous malformation. ??The intrac ranial arteries are of normal course and caliber. Impression ? 1. No evidence of residual arteri ovenous malformation. ? 2. 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 ??There is extensive surrounding vasogenic edema. Procedure Note Richardson Craig MD - 08/15/2012Format ting of this note might be different from the original. Examination MR BRAIN W/WO CONTRAST Clinical History AVM S/P Radiosurgery ? RT effect as well as AVM partial repso nse Please eval for further AVM response as well as response of treatmen t effect Comparison MRI of the brain of 01/29/2012. Technique MRI of the brain was obtained both befor e and after the administration of 10 mL Gadavist. Noncontrast MRA of the head wa s obtained. Findings At the site of the former arteriovenous malformation there is now a area of rim enhancement with mild mass effect and ex tensive surrounding vasogenic edema. The extent of abnormal enhancing tissue and edema are markedly greater than they had been the study of January 2012. There is minor effacement of sulci and very slight rightward midline shift but no downward herniation. There is no intracranial hemorrhage or extra-axial c ollection. Paranasal sinuses and mastoids are clear . The intracranial flow voids show no abnormality. The orbits are of normal ap pearance. MRA: There is no remaining flow-related enhancement at the site of the arteriovenous malformation. The intracra nial arteries are of normal course and caliber. Impression 1. No evidence of residual arteriovenou s malformation. 2. 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 There i s extensive surrounding vasogenic edema. 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 107.5 kg), Intravenous, ONCE PRN, 1 dose, Starting on Wed08/15/12 at 0628, Until Wed08/15/12 at 1245, Per Protocol, Routine documented in this encounter Care Teams Manager Unix Relationship Specialty Start Date End Date Michela Stevenson APRN PCP - General 04/29/10 06/07/16 documented as of this encounter
--- OUTSIDE RECORDS SUMMARY | 2022-05-06 08:21 | XMS_ITS | Encounter Summary ---
:1960 Author Organization [facility] [place] [address] Care Team Providers Name Role Phone Michela Stevenson APRN Primary Care Provider Encounter Details Date Type Department Care Team Description 08/16/2012 Multidisciplinary Care Hematology and Gregory Tadeo Committee Oncology at [facility] [place] [place] MD Andreea [facility]ly [facility] [address] [place] RADIATION [id number] ONCOLOGY [phone] [place] [address] Social History Tobacco Use Types Packs/Day Years Used Date Smoking Tobacco: Former Cigarettes 0.3 37 Quit : 05/21/2010 Smokeless Tobacco: Never Comments: 3 cigarettes a day Alcohol Use Standard Drinks/Week Comments Yes 0 (1 standard drink = 0.6 oz pure alcoho l) very rare Sex Assigned at Date Recorded Not on file documented as of this encounter Progress Notes Gregory Tadeo MD - 08/17/2012 3:42 PM EDT Images from the original note were not included. Neuro-Oncology Tumor Board Note 08/16/12 Presenting Physician: Gregory Tadeo MD Primary Care Physician: Michela Stevenson APRN Problem List: Patient Active Problem List Diagnoses ??? Allergy, drug ??? AVM (arteriovenous malformation) left temporal lobe, now presenting for stereotactic radiosurgery. Treatment Intent: curative Treatment Accomplished: [...] conformality index at 2.7. ??? Blurry vision ??? Breast CA Path: IDC w/lobular extension, high gr, tumor [...] Radiation therapy: 6100 cGy completed on 03/10/2010 Reason for Presentation: To review pathology and imaging studies, and discuss treatment options. Ms. Chavez underwent SRS for left frontal AVM on 08/12/10. She is presented for review of her current brain MRI and further treatment recommendations. Pathology/Radiology: Brain MRI from 08/15/12 demonstrates: At the site of the former arteriovenous [...] mastoids are clear. The intracranial flow voids show no abnormality. The orbits are of normal appearance. MRA: There is no remaining flow-related enhancement at the site of the arteriovenous malformation. The intracranial arteries are of normal course and caliber. Discussion and Recommendations*: Regarding the treated AVM, current MRI findings are encouraging forresolution of the treated lesion. Angiogram at some point might confirm these results. 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 Referral for HBO therapy may be considered to promote healing of this inflamed tissue. *These are recommended next steps based on past studies and the information available here. Specifictreatment to be undertaken must ultimately be determined on an individual basis by the patient's attending physician. documented in this encounter Plan of Treatment Not on filedocumented as of this encounter Visit Diagnoses Not on filedocumented in this encounter Care Teams Pattern Chain Builder Relationship Specialty Start Date End Date Michela Stevenson APRN PCP - General 04/29/10 06/07/16 documented as of this encounter
--- OUTSIDE RECORDS SUMMARY | 2022-05-06 08:21 | XMS_ITS | Encounter Summary ---
:1960 Author Organization [facility] [place] [address] Care Team Providers Name Role Phone Luz Stevensonmaurice Stanley APRN Primary Care Provider Reason for Referral Physical Therapy (Routine) - Complete - Patient Will Schedule External Appt Specialty Diagnoses / Procedures Referred By Contact Refer red To Contact Physical Therapy Diagnoses S/P knee replacement Juanjo Jacobson PA [facility] [place] [address] Referral ID Status Reason Start Expiration Visits Visits Date Date Requested Authorized [id number] Complete - Evaluate and 08/01/2012 2013 20 20 Patient Will Treat Schedule External Appt Reason for Visit Reason Comments Left Knee Pain Left TKA 10/31/08 Encounter Details Date Type Department Care Team Description 08/01/2012 Office Visit Orthopaedics at [facility] Juanjo Jacobson S/P knee replacement [facility] JAJA Oliveros (Primary Dx) [place] [address] CENTER [phone] ORTHOPAEDIC SURGERY [place], [place] [address] Social History Tobacco Use Types [...] Sign Reading Time Taken Comments Blood Pressure 130/80 08/01/2012 10:13 AM EST Pulse 70 08/01/2012 10:13 AM EST Temperature - - Respiratory Rate - - Oxygen Saturation - - Inhaled Oxygen Concentration - - Weight 107.5 kg (237 lb) 08/01/2012 10:13 AM EST Height 160 cm (5' 3) 08/01/2012 10:13 AM EST Body Mass Index 41.98 08/01/2012 10:13 AM EST documented in this encounter Progress Notes Juanjo Jacobson PA - 08/01/2012 10:48 AM EST CHIEF COMPLAINT: Left knee pain, status post bilateral total knee arthroplasties. DATE OF SURGERY: Left total knee on 10/31/2008 and right total knee was done in 2006, both with Dr. Altamirano. HISTORY OF PRESENT ILLNESS: This is a very pleasant 52-year-old here today with regards primarily to the left knee. She was actually just seen in April for similar problems. She describes anterior knee pain worse in arising from a seated position and going up or down stairs, has become fairly limiting for her. She has had a number of other health problems over the last year for which required an oral steroid for quite a long period of time. She has recently stopped that, and her knee pain has been worse since she stopped the oral steroid. She would like to make sure there are no more significant problems going on. She denies any recent fevers, chills, or injuries. She is disabled. PHYSICAL EXAMINATION: This is an obese 52-year-old in no acute distress, A and O x3 with a pleasant affect. She comes in to the office today with mild antalgia. Exam of the left knee shows no obvious deformity. Skin: Warm and dry without lesions. No effusion noted. No pain with patellar mobilization. She is exquisitely tender over the patellar tendon. She is able to do straight leg raise without difficulty or lag, but does have pain felt anteriorly with resisted knee extension. Stable to varus and valgus stress at 0 and 30 degrees. Negative anterior or posterior drawer sign. DIAGNOSTIC DATA: X-rays were reviewed in the office today, two views bilateral knees demonstrating no obvious change compared to prior x-rays. No evidence of complication at this time. IMPRESSION: Left knee pain, status post bilateral total knee arthroplasties with patellofemoral pain and weakness. PLAN: I had a lengthy conversation with the patient in the office today about the nature of her findings. Her exam and her x-rays are actually quite reassuring from the standpoint of infection or loosening. I think largely her problems have to do with weakness in the quadriceps. We discussed return to physical therapy, and she would like to do that, she was given a referral. In addition, I think the use of ibuprofen two pills three times a day with appropriate precautions would be an excellent adjunct to that. We will plan to see her back in two months' time or sooner with any difficulties. I have made the following determinations: Post Op Left Knee Exam: Gait Abnormality: Antalgic Knee ROM: Extension:0 Flexion: 105 and 120 Alignment: 0-4 degrees Neutral Stability: A/P Translation <5mm Varus (lateral stability) <5mm Valgus (medial stability) <5mm Extension La degrees or less Patella Tracking: Normal Pulses Palpable: Left PT:Yes Left DP:Yes Motor/Sensory: Distal Motor: Normal Distal Sensory: Normal Quadriceps Strength:5 documented in this encounter Plan of Treatment Scheduled Referrals Name Type Priority Associated Diagnoses Order S chedule Referral to Outpatient Referral Routine S/P knee replacement Ordered: Physical Therapy 08/01/2012 documented as of this encounter Visit Diagnoses Diagnosis S/P knee replacement - Primary Knee joint replacement by other means documented in this encounter Care Teams Food And Beverage Assistant Manager Relationship Specialty Start Date End Date Michela Stevenson APRN PCP - General 04/29/10 06/07/16 documented as of this encounter
--- OUTSIDE RECORDS SUMMARY | 2022-05-06 08:21 | XMS_ITS | Encounter Summary ---
:1960 Author Organization [facility] [place] [address] Care Team Providers Name Role Phone Michela Stevenson [place] Primary Care Provider Reason for Visit Reason Onset Date Comments Prior Authorization 09/01/2012 Encounter Details Date Type Department Care Team Description 09/01/2012 Telephone Hematology Oncology at [facility] RNelectrical engineering draftsperson [address] [phone] Social History Tobacco Use Types [...] this encounter Miscellaneous Notes Telephone Encounter - Rozina Stoddard RN - 09/01/2012 4:30 PM EDT TC to [facility] for prior authorization of brenda - . Talked with pharmacist Melanie and received approval - approval number [id number]. Call to Albertina Robertson in [facility] to inform them of approval. documented in this encounter Plan of Treatment Not on filedocumented as of this encounter Visit Diagnoses Not on filedocumented in this encounter Care Teams Communications Engineer Relationship Specialty Start Date End Date Michela Stevenson APRN PCP - General 04/29/10 06/07/16 documented as of this encounter
--- OUTSIDE RECORDS SUMMARY | 2022-05-06 08:21 | XMS_ITS | Encounter Summary ---
:1960 Author Organization [facility] [place] [address] Care Team Providers Name Role Phone Michela Stevenson APRN Primary Care Provider Encounter Details Date Type Department Care Team Description 06/06/2012 Orders Only Neurology at [facility] Scot Garcia [place] [facility] [place] [address] NEUROLOGY DEPT [phone] [place], [place] [address] (Wo rk) Social History Tobacco [...] on filedocumented in this encounter Care Teams Laborer Golf Course Relationship Specialty Start Date End Date Michela Stevenson APRN PCP - General 04/29/10 06/07/16 documented as of this encounter
--- OUTSIDE RECORDS SUMMARY | 2022-05-06 08:21 | XMS_ITS | Encounter Summary ---
:1960 Author Organization [facility] [place] [address] Care Team Providers Name Role Phone Michela Stevenson APRN Primary Care Provider Encounter Details Date Type Department Care Team Description 08/17/2012 Orders Only Radiation [facility]cology at [place] AVM (arteriovenous [facility] DRYWALL BOARDHANGER malformation) brain [address] (Primary Dx) [facility] [place] [address] [phone] Social History Tobacco Use Types Packs/Day Years [...] stem documented in this encounter Care Teams Transport Tech Relationship Specialty Start Date End Date Michela Stevenson APRN PCP - General 04/29/10 06/07/16 documented as of this encounter
--- OUTSIDE RECORDS SUMMARY | 2022-05-06 08:21 | XMS_ITS | Encounter Summary ---
:1960 Author Organization [facility] [place] [address] Care Team Providers Name Role Phone Michela Stevenson APRN Primary Care Provider Encounter Details Date Type Department Care Team Description 07/12/2012 Orders Only Orthopaedics at [facility] Fadi Webb, Shoulder pain [facility] (Primary Dx) [place] [address] [address] [phone] ORTHOPAEDIC SURGERY [place] [id number] Social History Tobacco Use Types Packs/Day Years [...] as of this encounter Visit Diagnoses Diagnosis Shoulder pain - Primary Pain in joint, shoulder region documented in this encounter Care Teams Refrigeration Lead Relationship Specialty Start Date End Date Michela Stevenson APRN PCP - General 04/29/10 06/07/16 documented as of this encounter
--- OUTSIDE RECORDS SUMMARY | 2022-05-06 08:21 | XMS_ITS | Encounter Summary ---
:1960 Author Organization [facility] [place] [address] Care Team Providers Name Role Phone Michela Stevenson [place] Primary Care Provider Encounter Details Date Type Department Care Team Description 05/05/2012 Hospital Encounter XRay at [facility] History of total knee [address] [facility] [place] [address] Social History Tobacco Use Types Packs/Day [...] 0 01/27/201208/19 (COMPAZINE) 10 mg Tablet mouth. dexlansoprazole (DEXILANT) Take 60 mg by 0 08/15/2012 60 mg CpDM mouth daily. letrozole (FEMARA) 2.5 mg Take 1 tablet by 90 tablet 3 02/0607/06/2012 tabletIndications: Breast mouth daily. cancer vitamin E 400 unit Take 1 capsule by 60 capsule 3 02/01/2012 10/05/2012 capsuleIndications: AVM mouth 2 times (arteriovenous daily. malformation) VITAMIN B COMPLEX Take 1 tablet by 0 11/27/2010 0 02/14/2013 ORALIndications: Breast CA mouth daily. loratadine (CLARITIN) 10 mg Take 10 mg by 0 11/0706/06/2012 tablet mouth daily. documented as of this encounter Plan of Treatment Not on filedocumented as of this encounter Procedures Procedure Name Priority Date/Time Associated Diagnosis Comme nts XR JOINT TEAM Routine 05/05/2012 10:21 History of total knee R esults for this ALIGNMENT AP LAT AM EST arthroplasty procedure a re in [place] the results section. documented in this encounter Results XR JOINT TEAM ALIGNMENT AP LAT [place] (05/05/2012 10:21 AM EST) Anatomical Region Laterality Modality N/A Radiographic Imaging Specimen (Source) Anatomical Collection Method Collection Time Re ceived Time Location / / Volume Laterality 05/05/2012 10:21 AM EST Narrative 05/05/2012 2:32 PM EST Examination STANDING ALIGNMENT AND BILATERAL KNEES ? ? Clinical History FU L TKA 10/31/08;called dr. jose duarte i's nurse, changed to bilat per request of pt. Comparison Knee radiographs from 03/04/2009. ??Lc dial alignment view from 12/06/2008. ?? Technique STANDING ALIGNMENT:Separate images of th e pelvis, knees and feet were acquired in the AP projection with the patient st anding. In addition to routine views of the knee, these images were stitched tog ether to form a composite image of the pelvis and legs allowing for evaluation of lower extremity alignment in the weight bearing position. BILATERAL KNEES ??: AP standing, PA Schu ss, and axial patellar views of both knees, as well as lateral views of both knees ??. ?? Findings STANDING ALIGNMENT: The mechanical axis of the right lower extremity is neutral. ??The mechanical axis of the le ft lower extremity is medially deviated approximate 10 mm. ?? BILATERAL KNEES ??: ??Bilateral total kn ee arthroplasties, as before, there is now findings for loosening or other inte rval complication. No joint effusion is seen on either side. On the lateral view of the left knee, a small osseous fragment collateral to the patella appea rs to have been incorporated and there is a dorsally protruding rounded bony sp ur. Impression Compared to 2009, only significant new i nterval change is on the lateral view of the left knee, incorporation of a sma ll bony fragment inferior to the patella creates a focal dorsal bone prot rusion. Procedure Note Jackie Muse MD - 05/05/2012Formatt ing of this note might be different from the original. Examination STANDING ALIGNMENT AND BILATERAL KNEES Clinical History FU L TKA 10/31/08;called dr. jose duarte i's nurse, changed to bilat per request of pt. Comparison Knee radiographs from 03/04/2009. Standi ng alignment view from 12/06/2008. Technique STANDING ALIGNMENT:Separate images of th e pelvis, knees and feet were acquired in the AP projection with the patient st anding. In addition to routine views of the knee, these images were stitched tog ether to form a composite image of the pelvis and legs allowing for evaluation of lower extremity alignment in the weight bearing position. BILATERAL KNEES : AP standing, PA Schuss , and axial patellar views of both knees, as well as lateral views of both knees . Findings STANDING ALIGNMENT: The mechanical axis of the right lower extremity is neutral. The mechanical axis of the left lower extremity is medially deviated approximate 10 mm. BILATERAL KNEES : Bilateral total knee a rthroplasties, as before, there is now findings for loosening or other inte rval complication. No joint effusion is seen on either side. On the lateral view of the left knee, a small osseous fragment collateral to the patella appea rs to have been incorporated and there is a dorsally protruding rounded bony sp ur. Impression Compared to 2008, only significant new i nterval change is on the lateral view of the left knee, incorporation of a sma ll bony fragment inferior to the patella creates a focal dorsal bone prot rusion. Levy Altamiarno MD IMG DX ORDERABLES documented in this encounter Visit Diagnoses Diagnosis History of total knee arthroplasty Knee joint replacement by other means documented in this encounter Care Teams Park Ranger Relationship Specialty Start Date End Date Michela Stevenson APRN PCP - General 04/29/10 06/07/16 documented as of this encounter
--- OUTSIDE RECORDS SUMMARY | 2022-05-06 08:21 | XMS_ITS | Encounter Summary ---
:1960 Author Organization [facility] Address [facility] [place] [address] Care Team Providers Name Role Phone Michela Stevenson [place] Primary Care Provider Encounter Details Date Type Department Care Team Description 06/21/2012 Orders Only Radiology Sidney Minor, Abnormal mammogram, [facility] Sheron Brandt MD unspecified (Primary Drive [facility] Dx) [place] [address] DIAGNOSTIC [phone] RADIOLOGY [place], [place] [address] (Wo rk) Social History Tobacco [...] filedocumented as of this encounter Results Mammo call back diagnostic extra view unilateral (06/23/2012 11:19 AM EST) Anatomical Region Laterality Modality Breast N/A Mammography Specimen (Source) Anatomical Collection Method Collection Time Re ceived Time Location / / Volume Laterality 06/23/2012 11:19 AM EST Narrative 06/24/2012 12:20 PM EST DIAGNOSTIC RIGHT MAMMOGRAPHY ON 06/23/12: ?? CLINICAL INDICATION: Area of asymmetry ( possible superimposition) in the upper Right breast noted on recent screening s tudy from 06/20/12. History of Right breast cancer. ?? TECHNIQUE: Right ML, spot CC and spot ML O views obtained with direct digital capture. ?? FINDINGS: This is a negative mammogram ( ACR Category 1). There is a stable fibroglandular pattern without significa nt change as compared to prior studies. There is no mammographic evidence of can cer. ? The breast is of scattered density. ? Reduction surgery has been performed. ? The study includes additional views. An initial area of concern in the Right breast completely effaces on the additio nal views. ? CONCLUSION ?? This is a NEGATIVE mammogram (ACR Catego ry 1). Routine screening mammography is recommended with the frequency dependent on the patient's age and breast cancer risk factors. ?? A letter has been sent to this patient b y the [facility]. Procedure Note Danni Flynn MD - 3 DIAGNOSTIC RIGHT MAMMOGRAPHY ON 06/23/12: CLINICAL INDICATION: Area of asymmetry ( possible superimposition) in the upper Right breast noted on recent screening s tudy from 06/20/12. History of Right breast cancer. TECHNIQUE: Right ML, spot CC and spot ML O views obtained with direct digital capture. FINDINGS: This is a negative mammogram ( ACR Category 1). There is a stable fibroglandular pattern without significa nt change as compared to prior studies. There is no mammographic evidence of can cer. The breast is of scattered density. Reduction surgery has been performed. The study includes additional views. An initial area of concern in the Right breast completely effaces on the additio nal views. CONCLUSION This is a NEGATIVE mammogram (ACR Catego ry 1). Routine screening mammography is recommended with the frequency dependent on the patient's age and breast cancer risk factors. A letter has been sent to this patient b y the [facility]. Sheron [place] MD IMG MAMMO ORDERABLES documented in this encounter Visit Diagnoses Diagnosis Abnormal mammogram, unspecified - Primar y Abnormal mammogram, unspecified documented in this encounter Care Teams English Instructor Relationship Specialty Start Date End Date Michela Stevenson [place] PCP - General 04/29/10 06/07/16 documented as of this encounter
--- OUTSIDE RECORDS SUMMARY | 2022-05-06 08:21 | XMS_ITS | Encounter Summary ---
:1960 Author Organization [facility] [place] [address] Care Team Providers Name Role Phone Michela Stevenson [place] Primary Care Provider Encounter Details Date Type Department Care Team Description 08/15/2012 Hospital [place] [address] Social History Tobacco Use Types Packs/Day [...] 0 01/27/201208/19 (COMPAZINE) 10 mg Tablet mouth. omeprazole (PRILOSEC) 40 mg Take 40 mg [...] Miscellaneous Notes Miscellaneous - Provider, Scanning - 08/29/2012 5:06 AM EDT documented in this encounter Plan of Treatment Not on filedocumented as of this encounter Procedures Procedure Name Priority Date/Time Associated Diagnosis Comme nts MRI HEAD ANGIOGRAM Routine 08/15/2012 1:03 PM Res ults for this WO CONTRAST EDT procedure are i n the results section. documented in this encounter Results MRI head angiogram WO contrast (08/15/2012 1:03 PM EDT) Anatomical Region [...] extensive surrounding vasogenic edema. Gregory Tadeo MD IMG MRI ORDERABLES documented in this encounter Visit Diagnoses Not on filedocumented in this encounter Care Teams Patient Financial Advocate Relationship Specialty Start Date End Date Michela Stevenson APRN PCP - General 04/29/10 06/07/16 documented as of this encounter
--- OUTSIDE RECORDS SUMMARY | 2022-05-06 08:21 | XMS_ITS | Encounter Summary ---
:1960 Author Organization [facility] [place] [address] Care Team Providers Name Role Phone Michela Stevenson Jaden FIGUEROA Primary Care Provider Encounter Details Date Type Department Care Team Description 08/01/2012 Hospital Encounter XRay at [facility] S/P total knee replacement n ot using cement; 1 [facility] Knee joint [place] [address] Social History Tobacco Use Types Packs/Day [...] 30 tablet 1 12/14/2013 tablet mouth daily. hydrOXYzine (ATARAX) 25 mg Take 1 tablet by 30 tablet 12 08/15/2012 tablet mouth 3 times daily as needed for Itching. indomethacin (INDOCIN) 25 Take 1 capsule by 60 capsule 1 08/15/2012 mg capsuleIndications: mouth 2 times Migraine daily (with meals). dexlansoprazole (DEXILANT) Take 60 mg by 0 08/15/2012 60 mg CpDM mouth daily. vitamin E 400 unit Take [...] nts XR KNEE AP AND LAT Routine 08/01/2012 10:38 AM Knee joint Re sults for this BILAT EST replacement by other procedu re are in means the results section. documented in this encounter Results XR knee bilateral1 or 2 view (08/01/2012 10:38 AM EST) Anatomical Region Laterality Modality Knee Bilateral Radiographic Imaging Specimen (Source) Anatomical Collection Method Collection Time Re ceived Time Location / / Volume Laterality 08/01/2012 10:38 AM EST Narrative 08/01/2012 3:04 PM EST Examination KNEE BILATERAL 1 OR 2 VIEWS/BILAT Clinical History S/P TKA Comparison 11/17/2006, 05/05/2012. Technique 2 views bilateral knees. Findings The patient is status post bilateral tot al knee arthroplasties. ??No periprosthetic fracture or significant p eriprosthetic radiolucency. ??No large joint effusions identified. Impression Unchanged appearance of bilateral total knee arthroplasties. Procedure Note Ron Infante MD - 08/01/2012Formatti ng of this note might be different from the original. Examination KNEE BILATERAL 1 OR 2 VIEWS/BILAT Clinical History S/P TKA Comparison 11/17/2006, 05/05/2012. Technique 2 views bilateral knees. Findings The patient is status post bilateral tot al knee arthroplasties. No periprosthetic fracture or significant p eriprosthetic radiolucency. No large joint effusions identified. Impression Unchanged appearance of bilateral total knee arthroplasties. Levy Altamirano MD IMG DX ORDERABLES documented in this encounter Visit Diagnoses Diagnosis S/P total knee replacement not using christiano ent Knee joint replacement by other means Knee joint replacement by other means documented in this encounter Care Teams Javascript Ui Developer Relationship Specialty Start Date End Date Michela Stevenson APRN PCP - General 04/29/10 06/07/16 documented as of this encounter
--- OUTSIDE RECORDS SUMMARY | 2022-05-06 08:21 | XMS_ITS | Encounter Summary ---
:1960 Author Organization [facility] [place] [address] Care Team Providers Name Role Phone Graham Michela Stanley APRN Primary Care Provider Reason for Visit Reason Comments Headache Encounter Details Date Type Department Care Team Description 05/19/2012 Follow-Up Radiation Oncology at [place], Wilfredo Brandt APRN Migraine (Primary Dx) [address] [facility] [place] [address] [id number] (Wo rk) Social History Tobacco Use Types [...] Sign Reading Time Taken Comments Blood Pressure 132/83 05/19/2012 10:51 AM EST Pulse 81 05/19/2012 10:51 AM EST Temperature 36.4 ??C (97.5 ??F) 05/19/2012 10:51 AM EST Respiratory Rate 18 05/19/2012 10:51 AM EST Oxygen Saturation 98% 05/19/2012 10:51 AM EST Inhaled Oxygen Concentration - - Weight 103 kg (227 lb 1.2 oz) 05/19/2012 10:51 AM EST Height 160 cm (5' 2.99) 05/19/2012 10:51 AM EST Body Mass Index 40.23 05/19/2012 10:51 AM EST documented in this encounter Progress Notes Domonique James, SHOE RECONDITIONER - 05/19/2012 11:33 AM EST Identification Shraddha Chavez is a 52 y.o. 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 Patient is being seen per her request due to complaint of headache for 24+ hours. HPI Starting in early January 2010, Mrs [...] headaches spurred a brain MRI performed at [facility]. This demonstrated an area of numerous tortuous [...] location: Left AVM Total dose: 1800 cGy 3. Allergies 4. GERD 5. Arthritis Surgical history: 1. Partial mastectomy and bilateral breast reduction 2. Hysterectomy 3. Carpal tunnel release 4. Rotator cuff repair. Allergies Allergen Reactions ??? Adhesive Tape Localized Reaction ??? Codeine Phos Hives, Nausea And Vomiting and Rash ??? [...] over / Fever ??? Magnesium Rash ??? Sulfa(Sulfonamide Antibiotics) Hives ??? Tramadol Nausea And Vomiting Current Outpatient Prescriptions on File Prior to Visit Medication Sig Dispense Refill ??? dexlansoprazole (DEXILANT) 60 mg CpDM Take 60 mg by mouth daily. ??? letrozole (FEMARA) 2.5 mg tablet Take 1 tablet by mouth daily. 90 tablet 3 ??? vitamin E 400 unit capsule Take 1 capsule by mouth 2 times daily. 60 capsule 3 ??? VITAMIN B COMPLEX ORAL Take 1 tablet by mouth daily. ??? loratadine (CLARITIN) 10 mg tablet Take 10 mg by mouth daily. 03/24. Interval history: Shraddha reports that starting yesterday she has felt pressure on the left side of her head/face that has been persistent. We reviewed her medication. [facility]. She was supposed to go for follow up on 05/09 but canceled the appointment because she was feeling better. Shehas no persistent nausea, no alteration of smells, no visual complaints.. She is no longer taking dexamethasone, trental or any antiemetics. Review of Systems Constitutional: Negative. Negative for fever, chills, diaphoresis, activity change and appetite change. HENT: Negative. Eyes: Negative. Patient had evaluation with Dr Ward as planned and was given a new Rx for glasses which she has not yet filled Respiratory: Negative. Negative for cough, chest tightness, shortness of breath and wheezing. Cardiovascular: Negative. Negative for chest pain and leg swelling. Gastrointestinal: Negative. Negative for nausea and vomiting. Genitourinary: Negative. Musculoskeletal: Negative. Negative for gait problem. Skin: Negative. Neurological: Negative for dizziness, tremors, speech difficulty, weakness, numbness and headaches. See interim history Headache described as a pressure involving the frontal area mostly on the left Hematological: Negative. Does not bruise/bleed easily. Psychiatric/Behavioral: Negative for confusion and sleep disturbance. The patient is not nervous/anxious. Recent Review Flowsheet Data View Complete Flowsheet Oncology Vitals 05/19/2012 Weight 103 kg Height 160 cm BSA (Calculated - sq m) 2.14 BMI (Calculated) 40.3 Temp 97.5 Temp src 1 Pulse 81 Heart Rate Source Left;NIBP Resp 18 BP 132/83 BP Location Left arm Patient Position Sitting SpO2 98 Pain Level 8 Physical Exam Vitals reviewed. Constitutional: She is oriented to person, place, and time. She appears well- developed and well-nourished. No distress. HENT: Head: Normocephalic and atraumatic. Mouth/Throat: Oropharynx is clear and moist. No oropharyngeal exudate. Tongue is midline with symmetric rise of palate/uvula. Eyes: Conjunctivae and EOM are normal. Pupils [...] She exhibits normal muscle tone. She displays no seizure activity. Coordination and gait normal. Strength and sensation bilaterally symmetric and intact across the face. Hearing intact bilaterally. Shoulder shrug and sternocleidomastoid functions bilaterally intact. Uvula elevates midline. Tongueextends midline. Strength, sensation intact in the upper and lower extremities. Stable gait-- mild visual field deficit left lower Skin: Skin is warm and dry. No rash noted. She is not diaphoretic. No erythema. No pallor. Psychiatric: She has a normal mood and affect. Her speech is normal and behavior is normal. Judgmentand thought content normal. Her mood appears not anxious. Cognition and memory are normal. Asessment/Plans AVM: Shraddha's distressing symptoms have resolved with intervention by neurology injecting cranial nerves. She has complaint of pressure. She does not feel that the symptoms are severe. She is to use indomethacin twice a day with the plan that she call if symptoms worsen or are not relieved. She has a new appointment with neurology in June She is scheduled to have a repeat MRI 08/15/2012. She is to call if she has any questions or concernsin the interim. She will continue follow up with neurology in the interim. documented in this encounter Plan of Treatment Not on filedocumented as of this encounter Visit Diagnoses Diagnosis Migraine - Primary Migraine, unspecified, without mention o f intractable migraine without mention of status migrainosus documented in this encounter Care Teams Stock Replenisher Relationship Specialty Start Date End Date Michela Stevenson APRN PCP - General 04/29/10 06/07/16 documented as of this encounter
--- OUTSIDE RECORDS SUMMARY | 2022-05-06 08:21 | XMS_ITS | Encounter Summary ---
:1960 Author Organization [facility] [place] [address] Care Team Providers Name Role Phone GrahamMichela APRN Primary Care Provider Reason for Referral Consultation (Routine) - Closed Specialty Diagnoses / Procedures Referred By Contact Refer red To Contact Occupational Medicine Diagnoses Radiation adverse effect Domonique James APRN Buckey, Jay C Jr., [facility] MD [facility] [place] [address] Fax: Referral ID Status Reason Start Date Expiration Date Visits V isits Requested Authorized [id number] Closed Consult, 08/17/2012 02/13/2013 1 1 Test & Treat Reason for Visit Reason Comments Radiation Follow-up AVM Encounter Details Date Type Department Care Team Description 08/15/2012 [facility]-Up [facility] DR YOBANI CHOWDARY (arteriovenous malformation) (Primary Dx); Domonique Henao APRN [address] [place] [address] [place] [address] [place] [address] Social History Tobacco Use Types Packs/Day [...] Sign Reading Time Taken Comments Blood Pressure 110/67 08/15/2012 1:19 PM EDT Pulse 87 08/15/2012 1:19 PM EDT Temperature 37 ??C (98.6 ??F) 08/15/2012 1:19 PM EDT Respiratory Rate 20 08/15/2012 1:19 PM EDT Oxygen Saturation 93% 08/15/2012 1:19 PM EDT Inhaled Oxygen Concentration - - Weight 108 kg (238 lb) 08/15/2012 1:19 PM EDT Height - - Body Mass Index 42.16 08/01/2012 10:13 AM EST documented in this encounter Progress Notes Domonique James, INSTRUMENT SETTER - 08/15/2012 5:18 PM EDT Identification Shraddha Chaevz is a 52 y.o. 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 Patient is being seen for routine follow up andbrain MRI post treatment of AVM with SRS. HPI Starting in early January 2010, Mrs [...] headaches spurred a brain MRI performed at [facility]. This demonstrated an area of numerous [...] vary and show ring scotomas with a INSTRUCTOR HAIRSPRING pattern. Reassurance given about her exam findings. New MRx given. 3. Allergies 4. GERD 5. Arthritis Surgical [...] to Visit Medication Sig Dispense Refill ??? prochlorperazine (COMPAZINE) 10 mg tablet Take 10 mg by mouth every 6 hours as needed. ??? aspirin 325 mg tablet Take 325 mg by mouth daily. ??? tamoxifen (NOLVADEX) 20 mg tablet Take 1 tablet by mouth daily. 30 tablet 12 ??? loratadine (CLARITIN) 10 mg tablet Take 1 tablet by mouth daily. 30 tablet 1 ??? vitamin E 400 unit capsule Take 1 capsule by mouth 2 times daily. 60 capsule 3 ??? VITAMIN B COMPLEX ORAL Take 1 tablet by mouth daily. ??? DISCONTD: hydrOXYzine (ATARAX) 25 mg tablet Take 1 tablet by mouth 3 times daily as needed for Itching. 30 tablet 12 ??? DISCONTD: indomethacin (INDOCIN) 25 mg capsule Take 1 capsule by mouth 2 times daily (with meals). 60 capsule 1 ??? DISCONTD: dexlansoprazole (DEXILANT) 60 mg CpDM Take 60 mg by mouth daily. No current facility-administered medications on file prior to visit. 1 Interval history: Shraddha reports that since she was last seen in clinic that she has been seen by neurology in [place]. She has continued to have pressure on the left side of her head/face which has been persistent with intermittent nausea and occasional slowed speech. She did not tolerate steroids due to problems with sleep and agitation. She stopped Trental for no clear reason but did continue vitamin E. She does take compazine occasionally for nausea. She remains very anxious. Shraddha was referred to neurology in March [...] these. She also cancelled follow up at [facility] in neurology and asked to be referred to a provider closer to her home.. She was seen at [facility] x1. Review of Systems Constitutional: Negative. Negative for fever, chills, diaphoresis, activity change, appetite change and fatigue. Weight gain HENT: Negative. Negative for hearing loss, ear pain, sore throat, trouble swallowing, voice change and tinnitus. Eyes: Positive for visual disturbance. Patient had evaluation with Dr Ward as planned and was given a new Rx for glasses Reports intermittent loss of visual field on left lower quadrant. Respiratory: Negative. Negative for cough, chest tightness, shortness of breath and wheezing. Cardiovascular: Negative. Negative for chest pain and leg swelling. Gastrointestinal: Positive for nausea. Negative for vomiting. Genitourinary: Negative. Musculoskeletal: Negative. Negative for gait problem. Skin: Negative. Neurological: Negative for dizziness, tremors, speech difficulty, weakness, numbness and headaches. See interim history Headache described as a pressure involving the frontal area mostly on the left Hematological: Negative. Does not bruise/bleed easily. Psychiatric/Behavioral: Negative for confusion and disturbed wake/sleep cycle. The patient is not nervous/anxious. Recent Review Flowsheet Data View Complete Flowsheet Oncology Vitals 08/15/2012 Weight 107.956 kg Temp 98.6 Temp src 1 Pulse 87 Heart Rate Source NIBP Resp 20 BP 110/67 BP Location Left arm Patient Position Sitting SpO2 93 Pain Level 6 FACES Pain Rating: Rest 6 - hurts even more FACES Pain Rating: Activity 6 - hurts even more Karnofsky Score 80 Physical Exam Vitals reviewed. Constitutional: She is [...] in the upper and lower extremities. Stable gait -- mild visual field deficit left lower --difficulty with tandem walking Skin: Skin is warm and dry. No rash noted. She is not diaphoretic. No cyanosis or erythema. No pallor. Psychiatric: Her speech is normal and behavior is normal. Judgment and thought content normal. Her mood appears not anxious. Cognition and memory are normal. Examination: [...] weight gain. She also discontinued the trental. 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 Films were reviewed with Dr Gregory Tadeo and we will plan to review MRI at neuro tumor board 08/16 with discussion regarding management of radiation necrosis. Mrs Chavez agrees with the plan. 08/17/2012: Tumor board reviewed patient MRI/MRA report and history. Recommendation is to repeat brain angiogram to determine resolution of AVM and to refer patient for consult for hyperbaric therapy for treatment of radiation necrosis. Patient was informed of this and agrees with the plan documented in this encounter Plan of Treatment Scheduled Referrals Name Type Priority Associated Order Schedule Diagnoses Referral to Outpatient Referral Routine Radiation adverse Ord ered: Hyperbaric Medicine effect 08/18/19 13 documented as of this encounter Results IR all diagnostic angiograms [...] groin was sterilely prepped and draped. 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
--- OUTSIDE RECORDS SUMMARY | 2022-05-06 08:21 | XMS_ITS | Encounter Summary ---
:1960 Author Organization [facility] [place] [address] Care Team Providers Name Role Phone Michela Stevenson CAR[place]INA Primary Care Provider Reason for Visit Reason Comments Breast Cancer Encounter Details Date Type Department Care Team Description 07/27/2012 Follow-Up Hematology Oncology at [facility] Lug[facility] MD Breast cancer (Primary [address] DR Dx) [address] [place] [address] [id number] [phone] Social History Tobacco Use Types Packs/Day Years [...] Sign Reading Time Taken Comments Blood Pressure 136/83 07/27/2012 9:52 AM EST Pulse 115 07/27/2012 9:52 AM EST Temperature 36.6 ??C (97.9 ??F) 07/27/2012 9:52 AM EST Respiratory Rate 22 07/27/2012 9:52 AM EST Oxygen Saturation 96% 07/27/2012 9:52 AM EST Inhaled Oxygen Concentration - - Weight 107.5 kg (237 lb) 07/27/2012 9:52 AM EST Height 160 cm (5' 2.99) 07/27/2012 9:52 AM EST Body Mass Index 41.99 07/27/2012 9:52 AM EST documented in this encounter Progress Notes Schuyler Lugo MD - 07/27/2012 10:33 AM EST DIAGNOSIS: 1. 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 ER positive, HER-2/viktoria negative, with one lymph node microscopically positive, other two negative. She had arthralgias and myalgias on aromatase inhibitors and is currently on tamoxifen for a planned 10years . 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 SUBJECTIVE: Shraddha comes in today for followup.she was having some arthralgias and myalgias and whenwe saw her a month ago we decided to give her a trial off of the Femara. With that in a week and going off the medication her symptoms completely resolved. She continues to have some periodic nausea and his less than optimal relief with Compazine but does not tolerate other antiemetics well. Additionally she continues to have ongoing headaches which she describes as occurring about every 15 minutes. She is in an excellent mood today as she tells me she is just gotten engaged and is excited about that. Review systems remains largely positive for her. Review of Systems Constitutional: Negative for fever, [...] Chronic Headaches. Hematological: Negative for adenopathy. Head: Normocephalic, without [...] CMP today are completely normal. Creatinine is 1.2 again ALP is normal at 82.. ALP is normal at 77. Assessment/Plan: Shraddha has had resolution of her joint pain since going off the aromatase inhibitor. At this point Iwould favor switching her to tamoxifen and with new data would recommend 10 years of treatment. We discussed the potential side effects including a small risk of stroke blood clotting and DVT. She is cu rrently taking an aspirin daily which should minimize those risks for her. Since she's had a hysterectomy there is no risk of uterine cancer. She is in remission and we will see her back for her routine followup in 6 months time. She will continue to work with her neurologist and other providers abouther multiple ongoing symptoms. documented in this encounter Procedure Notes Provider, Scanning - 07/26/2012 5:25 PM ESTAssociated Order(s): SCAN DOC: LAB documented in this encounter Plan of Treatment Not on filedocumented as of this encounter Procedures Procedure Name Priority Date/Time Associated Diagnosis Comme nts LAB SCAN 07/26/2012 5:25 PM Results f or this EST procedure are i n the results section . documented in this encounter Results SCAN DOC: LAB (07/26/2012 5:25 PM EST) Narrative This result has an attachment that is no t available. Transcriptions Provider, Scanning - 07/26/2012 5:25 PM EST Scanning Provider MEDIA MGR SCAN EXT ORDR/RSLT documented in this encounter Visit Diagnoses Diagnosis Breast cancer - Primary Malignant neoplasm of breast (female), u nspecified site documented in this encounter Care Teams Rigging Supervisor Relationship Specialty Start Date End Date Michela Stevenson APRN PCP - General 04/29/10 06/07/16 documented as of this encounter
--- OUTSIDE RECORDS SUMMARY | 2022-05-06 08:21 | XMS_ITS | Encounter Summary ---
:1960 Author Organization [facility] [place] [address] Care Team Providers Name Role Phone Michela Stevenson CAR[place] Primary Care Provider Reason for Visit Reason Comments [facility] TKA DOS L - 10/31/08, R - 10/11/06 Encounter Details Date Type Department Care Team Description 05/05/2012 Office Visit Orthopaedics at [facility] Levy Altamirano S/P total knee replacement n ot using cement (Primary Dx); [facility] MD Rikki Knee joint [place] [address] CENTER [phone] ORTHOPAEDIC SURGERY [place] [address] Social History Tobacco Use Types Packs/Day Years [...] Sign Reading Time Taken Comments Blood Pressure 125/79 05/05/2012 11:28 AM EST Pulse 83 05/05/2012 11:28 AM EST Temperature - - Respiratory Rate - - Oxygen Saturation - - Inhaled Oxygen Concentration - - Weight 100.2 kg (220 lb 14.4 oz) 05/05/2012 11:28 AM EST Height 160 cm (5' 3) 05/05/2012 11:28 AM EST Body Mass Index 39.13 05/05/2012 11:28 AM EST documented in this encounter Progress Notes Levy Altamirano - 05/05/2012 12:03 PM EST Ms. Chavez is five years and three years status post left and right total knee replacement. These are posterior cruciate retaining porous rotating platforms. She is happy with the right knee. She has some discomfort laterally on the left, but this has not prevent her from being very active. She has had a rough go since I have seen her. She has been treated from an AV malformation, is on steroids for that and so she has had a fair amount of weight gain, but she has also had breast malignancy and this has undergone surgery with some positive nodes. Chemotherapy and radiation has been given, but she has done very, very well with all of these. On her physical exam, she could raise from a chair without the use of her arms. She has full extension capability in both knees about 120 degrees of flexion on the right and about 95 on the left. Alignment is quite good. Patella tracks well. No distal neurovascular compromise. Her x-rays continue to show excellent position of the implants. Nothing to suggest stress shielding, implant failure, loosening, or malposition. ASSESSMENT: Very satisfactory course. Admonitions about good foot care, dental and urologic prophylaxis once again emphasized. We would see her in two years' time for followup with x-rays or earlier p.r.n. CC: [facility] [address] [place] [address], [address] [facility], [id number] documented in this encounter Plan of Treatment Not on filedocumented as of this encounter Visit Diagnoses Diagnosis S/P total knee replacement not using christiano ent - Primary Knee joint replacement by other means Knee joint replacement by other means documented in this encounter Care Teams Recreational Sports Director Relationship Specialty Start Date End Date Michela Stevenson APRN PCP - General 04/29/10 06/07/16 documented as of this encounter
--- OUTSIDE RECORDS SUMMARY | 2022-05-06 08:21 | XMS_ITS | Encounter Summary ---
:1960 Author Organization [place] [address] Care Team Providers Name Role Phone Michela Stevenson Jaden FIGUEROA Primary Care Provider Encounter Details Date Type Department Care Team Description 06/20/2012 Hospital Encounter Mammography at [facility] Schuyler Lugo, Breast cancer [address] [place] [address] [place], [place] [phone] (Wo rk) Social History Tobacco Use Types [...] mg Tablet mouth. loratadine (CLARITIN) 10 mg Take 1 tablet [...] Diagnosis Comme nts MAMMO SCREENING CAD Routine 06/20/2012 2:02 PM Malignant neopl asm Results for this BILATERAL EST of breast (female), procedur e are in unspecified site the results section. documented in this encounter Results Mammo digital bilateral Screening with CAD (06/20/2012 2:02 PM EST) Anatomical Region Laterality Modality Breast Bilateral Mammography Specimen (Source) Anatomical Collection Method Collection Time Re ceived Time Location / / Volume Laterality 06/20/2012 2:02 PM EST Narrative 06/21/2012 4:55 PM EST REASON FOR EXAM: Screening. History of Right breast cancer. ?? TECHNIQUE: Cranio-caudal (CC) and mediol ateral oblique (MLO) views of the both breasts obtained with direct digital cap ture. The exam was evaluated by CAD Version 8.3.17. ?? RIGHT BREAST MAMMOGRAPHY ?? This is an indeterminate (ACR Category 0 ) mammogram of the Right breast. There is an area of asymmetry (possible superi mposition) in the upper Right breast, requiring additional imaging. ? LEFT BREAST MAMMOGRAPHY ?? This is a negative mammogram (ACR Catego ry 1). There is a stable fibroglandular pattern without significant change as co mpared to prior studies. There is no mammographic evidence of cancer. ? The breasts are of scattered density. ? CONCLUSION ?? ASSESSMENT IS INCOMPLETE: Additional gemini ging recommended (ACR Category 0) of the Right breast. The [facility] will contact the patient to schedule additional imaging. ?? The contralateral breast is NEGATIVE (AC R Category 1). Routine screening mammography is recommended of the Left b reast with the frequency dependent on the patient's age and breast cancer risk factors. Procedure Note Sheron Tello MD - 06/07 REASON FOR EXAM: Screening. History of R ight breast cancer. TECHNIQUE: Cranio-caudal (CC) and mediol ateral oblique (MLO) views of the both breasts obtained with direct digital cap ture. The exam was evaluated by CAD Version 8.3.17. RIGHT BREAST MAMMOGRAPHY This is an indeterminate (ACR Category 0 ) mammogram of the Right breast. There is an area of asymmetry (possible superi mposition) in the upper Right breast, requiring additional imaging. LEFT BREAST MAMMOGRAPHY This is a negative mammogram (ACR Catego ry 1). There is a stable fibroglandular pattern without significant change as co mpared to prior studies. There is no mammographic evidence of cancer. The breasts are of scattered density. CONCLUSION ASSESSMENT IS INCOMPLETE: Additional gemini ging recommended (ACR Category 0) of the Right breast. The [facility] will contact the patient to schedule additional imaging. The contralateral breast is NEGATIVE (AC R Category 1). Routine screening mammography is recommended of the Left b reast with the frequency dependent on the patient's age and breast cancer risk factors. Schuyler Lugo MD IMG MAMMO ORDERABLES documented in this encounter Visit Diagnoses Diagnosis Breast cancer Malignant neoplasm of breast (female), u nspecified site documented in this encounter Care Teams Dough Mixer Relationship Specialty Start Date End Date Michela Stevenson APRN PCP - General 04/29/10 06/07/16 documented as of this encounter
--- OUTSIDE RECORDS SUMMARY | 2022-05-06 08:21 | XMS_ITS | Encounter Summary ---
:1960 Author Organization [facility] [place] [address] Care Team Providers Name Role Phone Michela Stevenson APRN Primary Care Provider Encounter Details Date Type Department Care Team Description 06/06/2012 Orders Only Neurology at [facility] [place] Garcia MD [facility] [place] [address] NEUROLOGY DEPT [phone] [place], [place] [address] (Wo rk) Social History Tobacco Use Types Packs/Day Years Used Date Smoking Tobacco: Former Cigarettes 0.3 37 Quit : 05/21/2010 Smokeless Tobacco: Never Comments: 3 cigarettes a day Alcohol Use Standard Drinks/Week Comments Yes 0 (1 standard drink = 0.6 oz pure alcoho l) very rare Sex Assigned at Date Recorded Not on file documented as of this encounter Progress Notes Scot Garcia - 06/06/2012 1:42 PM EST Loratidine reorderd. No antinausea medications in system documented in this encounter Plan of Treatment Not on filedocumented as of this encounter Visit Diagnoses Not on filedocumented in this encounter Care Teams Manager Bank Relationship Specialty Start Date End Date Michela Stevenson APRN PCP - General 04/29/10 06/07/16 documented as of this encounter
--- OUTSIDE RECORDS SUMMARY | 2022-05-06 08:22 | XMS_ITS | Encounter Summary ---
:1960 Author Organization [facility] Address [address] [place] [address] Care Team Providers Name Role Phone Michela Stevenson CAROLINA Primary Care Provider Encounter Details Date Type Department Care Team Description 03/24/2012 Office Visit [place]rology [place] [facility] [place] Mc MD AVM (arteriovenous malformation) (Primar y Dx); [facility] Khari leong; Drive Occipital neuralgia [place], [place] NEUROLOGY DEPT. [address] [place] [address] [phone] Social History Tobacco Use Types Packs/Day Years Used Date Smoking Tobacco: Some Days Cigarettes 0.3 37 L ast attempted to quit: 05/21/2010 Smokeless Tobacco: Never Comments: 3 cigarettes a day Alcohol Use Standard Drinks/Week Comments Yes 0 (1 standard drink = 0.6 oz pure alcoho l) very rare Sex Assigned at Date Recorded Not on file documented as of this encounter Last Filed Vital Signs Vital Sign Reading Time Taken Comments Blood Pressure 121/73 03/24/2012 3:55 PM EDT Pulse 93 03/24/2012 3:55 PM EDT Temperature - - Respiratory Rate - - Oxygen Saturation - - Inhaled Oxygen Concentration - - Weight 92.1 kg (203 lb) 03/24/2012 3:55 PM EDT Height 160 cm (5' 3) 03/24/2012 3:55 PM EDT Body Mass Index 35.96 03/24/2012 3:55 PM EDT documented in this encounter Progress Notes Scot Garcia - 03/24/2012 5:09 PM EDT Clinical scenario 52 Y F with history of Left temporal AVM s/p SRS in 08/2010 and headaches comes for f/up Progress During previous visit Mrs Chavez was prescribed verapamil for radiation vasculopathy. She had dizziness, nausea and fall in BP and went to ED. Verapamil was stopped subsequently. She is on dexamethasone 1 mg, trental , hydroxyzine but continues to have severe headache which is present daily She also complains of bad smell and bad taste with these headaches. Takes upto 4 advils a day Vitals: Temp: -- Heart Rate: [93] Resp: -- BP: (121)/(73) SpO2: -- Physical Examination Mod built obese Normal respiration mild distress due to pain Neurological Examination HF: alert, oriented, normal speech CN: pupils equal, left fundus, optic disc -bluish hue. vision 20/100 bilaterally, no facial asymmetry Motor: full strength bialterally Reflexes: diminished DTR bilaterally Normal gait and coordination Occipital nerve tenderness bilaterally more prominent on the left side Labs/ Imaging MRI 01/28/10: diminished size of AVM Assessment and Plan 52 Y F with history of left temporal AVM s/p SRS in 08/2010, h/o breast cancer 2 years ago s/p resection ,chemo, radiotherapy on letrozole. 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 Patient has complains of nausea, abnormal taste sensation raising suspicion for complex partial seizure from left temporal focus. On examination patient has occipital nerve tenderness severe on left side. Previous imaging with MRI brain showed stable AVM reduced in size. impression: Headaches. occipital neuraligia. Radiation vasculopathy Management Will administer bilateral occipital nerve block Initiate indomethacin PRN for breakthrough episodes Nortriptiline 25 HS for headache prevention EEG to rule out epileptic activity F/up in one month Procedure note Procedure Note Procedure: Bilateral Greater Occipital Nerve Blocks Indication: Headache with occipital/cervical tenderness Consent: Indication, risks, benefits, and alternatives discussed with patient, including risk of bleeding, infection, permanent numbness, and medication reaction. Consent signed by patient Location: The greater occipital nerve was located by first palpating the mastoid and midline occipital ridge. The nerve was palpated at 2/3 the distance to the occipital ridge. It was coincident with maximal tenderness Medication: 50/50 mixture of 1% lidocaine and 0.25% bupivacaine Technique: The area was cleansed with 2 alcohol swabs while using clear gloves. Using a 3 cc syringeand a 25 guage 5/8 inch needle, 3 cc of the medication mixture was injected into multiple tissue planes in the area around each greater occipital nerve. Prior to each injection the plunger was drawn back to ensure that the needle was not in a blood vessel. The patient tolerated the procedure well. Complications: None Blood loss: <1 cc Scot Garcia MD Resident Physician Neurology Pager [phone] This patient was seen in [facility] with Dr Garcia. I concur with the above summary of the patient's history and exam. I agree with the assessment and plan as above. 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
--- OUTSIDE RECORDS SUMMARY | 2022-05-06 08:22 | XMS_ITS | Encounter Summary ---
:1960 Author Organization [facility] [place] [address] Care Team Providers Name Role Phone StevensonMichela APRN Primary Care Provider Reason for Referral Allergy Testing (Routine) - Closed Specialty Diagnoses / Procedures Referred By Contact Refer red To Contact Allergy Diagnoses Multiple allergies Domonique James APRN [facility] [address] [place] [address] [place] [address] [place] [address] Referral ID Status Reason Start Date Expiration Date Visits V isits Requested Authorized [id number] Closed Consult, 09/15/2011 03/13/2012 1 1 Test & Treat Encounter Details Date Type Department Care Team Description 09/15/2011 Orders Only Radiation Oncology at [facility]onique [facility] [address] [place] [id number] [phone] Social History Tobacco Use Types Packs/Day Years Used Date Smoking Tobacco: Former Cigarettes 0.3 37 Quit : 05/21/2010 Comments: 3 cigarettes a day Alcohol Use Standard Drinks/Week Comments No 0 (1 standard drink = 0.6 oz pure alcoho l) Sex Assigned at Date Recorded Not on file documented as of this encounter Plan of Treatment Scheduled Referrals Name Type Priority Associated Diagnoses Order S chedule REFERRAL TO Outpatient Referral Routine Multiple allergies Or dered: ALLERGY 09/15/2011 documented as of this encounter Visit Diagnoses Diagnosis Multiple allergies - Primary Other allergy, other than to medicinal a gents documented in this encounter Care Teams Plating Engineer Relationship Specialty Start Date End Date Michela Stevenson APRN PCP - General 04/29/10 06/07/16 documented as of this encounter
--- OUTSIDE RECORDS SUMMARY | 2022-05-06 08:22 | XMS_ITS | Encounter Summary ---
:1960 Author Organization [facility] Address [facility] [place] [address] Care Team Providers Name Role Phone Michela Stevenson CAROLINA Primary Care Provider Encounter Details Date Type Department Care Team Description 02/25/2012 Follow-Up Radiation Oncology at [place], Lynnette Latham (fany Alex MD malformation) (Primary [facility] Dx) [facility] [address] [address] [place] [address] [phone] (Wo rk) Social History Tobacco Use Types [...] Sign Reading Time Taken Comments Blood Pressure 116/54 02/25/2012 11:19 AM EDT Pulse 66 02/25/2012 11:19 AM EDT Temperature 36.9 ??C (98.4 ??F) 02/25/2012 11:19 AM EDT Respiratory Rate - - Oxygen Saturation 97% 02/25/2012 11:19 AM EDT Inhaled Oxygen Concentration - - Weight 91.5 kg (201 lb 11.5 oz) 02/25/2012 11:19 AM EDT Height - - Body Mass Index 35.74 02/04/2012 9:17 AM EDT documented in this encounter Patient Instructions Patient InstructionsHarGregory starkey MD - 02/25/2012 1:16 PM EDT Please try cutting dexamethasone back to 3 mg in the mornings for one week, and then step back one more time to 2 mg in the mornings. Domonique James will follow-up with you at that point regarding your symptoms, whether we should try stepping back further. Regarding the Trental, please make sure these are Extended release tablets. Try taking this 400 mg ER tablet again in the morning, and see whether this is tolerated. We will check your MRI in 3-6 months, depending upon your symptomatic response. Please call with any questions or concerns. documented in this encounter Progress Notes Gregory Tadeo MD - 02/25/2012 1:13 PM EDT Identification Shraddha Chavez is a 52 y.o. 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 We originally saw her here in radiation oncology in consultation on April 29, 2010. CT/angiogram and brain MRI scans, June 19, 2010, demonstrated a left temporal lobe AV malformation with the bulk of the nidus spanning 3 x 2.2 cm in greatest axial dimension. She undewent stereotactic radiosurgery treatment on August 12, 2010. We saw her in follow-up on 11/13/10, at which time MRI appeared stable. Of note, she had seen Dr. Ward on November 07, 2010, and was found to have minimal cataracts and deep optic nerve head drusen, potentially contributing to her visual field defect. However, her kiran were noted to have changed and improved since her last VF, though with some unreliability on the test paramet ers. Ophthalmologic follow-up was planned at one year. She was seen 05/28/11, at which point MRI showed no significant change, and she was symptomatically stable. Domonique James saw her 08/04/11, at which point MRI demonstrated interval decreased size of the left temporal lobe AVM with evidence for decreased flow-related enhancement. Meanwhile, the patient continued with intermittent severe headaches as well as some visual symptoms of flashing lights arisingintermittently for about 60 seconds or so at a time. We saw her again in November 2011 at which point MRI appeared stable, and her headaches were improving. At repeat visit with Domonique James in early January she was symptomatically doing well. Interval history January 18 the patient developed a massive headache with associated vomiting, primarily on the leftside. Friends reported that when she talked she did not always make sense. She continues with the headache and with nausea, and was evaluated in the ED on 01/22/12. Head CT showed no evidence of bleed. Follow-up STACY was recommended. Brain MRI 01/29/12 demonstrated: Previously seen left mesial temporal arteriovenous malformation has changed in appearance. The largedraining vein at the posterior and inferior aspect is decreased in size. There is enhancement withinthe lesion on post-contrast images. The overall area of enhancement has slightly increased in size compared to the previous study. There is FLAIR and T2 signal abnormality within the lesion. The ventricles remain normal in size and contour. There is no abnormal enhancement elsewhere. There is no evidence of infarct. No other change is seen aside from this region. The patient was evaluated here 02/04/12 and started on dexamethasone 2 mg BID as well as Trental and Vitamin E. Due to trouble sleeping the Decadron was then switched to 4 mg every morning. The patient tried one tablet 400 mg of Trental, but then discontinued the medication due to nausea. Since starting the dexamethasone, at this time she notes frequent shaking of her whole body, occurring perhaps every other day. She finds this makes her very nervous. First episode lasted 20 minutes (about two weeks ago). These have continued every other day, lasting about 15 minutes, sometimes several a day. No falling episodes. She states her vision is in a fog -- all a blur -- left eye is worse, but both are affected. She notes the dexamethasone has helped improve her left retroorbital headache/sense of pressure. However, she notes continuing difficulties with sleeping. She also describes an intense increase in her sense of appetite and is gaining weight. Current outpatient prescriptions ordered prior to encounter Medication Sig Dispense Refill ??? dexamethasone (DECADRON) 1 mg tablet Take 2 tablets by mouth 2 times daily. 60 tablet 3 ??? pentoxifylline (TRENTAL) 400 mg CR tablet Take 1 tablet by mouth 2 times daily. 60 tablet 3 ??? vitamin E 400 unit capsule Take 1 capsule by mouth 2 times daily. 60 capsule 3 ??? letrozole (FEMARA) 2.5 mg tablet Take 1 tablet by mouth daily. 90 tablet 2 ??? VITAMIN B COMPLEX ORAL Take 1 tablet by mouth daily. ??? CALCIUM CARBONATE/VITAMIN D3 (CALCIUM WITH VITAMIN D ORAL) Take 1 tablet by mouth daily. ??? loratadine (CLARITIN) 10 mg tablet Take 10 mg by mouth daily as needed. ??? omeprazole (PRILOSEC) 20 mg capsule Take 20 mg by mouth 2 times daily. ??? ibuprofen (ADVIL) 200 mg tablet Take 800 mg by mouth as needed. Allergies Allergen Reactions ??? Gloves, Latex Itching and Rash ??? Codeine Phos Hives, Nausea And Vomiting and Rash ??? Toradol (Ketorolac Tromethamine) Hives ??? Morphine Sulfate Nausea And Vomiting ??? Nsaids (Non-steroidal Anti-inflammatory Drug) Nausea Only and Rash pt tolerates ibuprofen ??? Oxycodone-acetaminophen Nausea And Vomiting Has n/v if taken on empty stomach. ??? Promethazine Hcl Nausea And Vomiting ??? Hydrocodone-acetaminophen Nausea And Vomiting ??? Hydromorphone Nausea And Vomiting ??? Adhesive Tape Localized Reaction ??? Aspirin Rash ??? Tramadol Nausea And Vomiting ??? Magnesium Rash ??? Cortisone Hot all over / Fever ??? Sulfa (Sulfonamide Antibiotics) Hives Physical Exam BP 116/54 Pulse 66 Temp(Src) 36.9 ??C (98.4 ??F) (Oral) Wt 91.5 kg (201 lb 11.5 oz) SpO2 97% No papilledema bilaterally. Pupils equal, round, reactive to light. Extraocular movements intact. Visual kiran full to confrontation bilaterally. Strength and sensation bilaterally symmetric and intact across the face. Hearing intact bilaterally. Shoulder shrug and sternocleidomastoid functions bilaterally intact. Uvula elevates midline. Tongue extends midline. Strength, sensation, DTRs symmetric and intact in the upper and lower extremities. Stable gait. Negative Romberg. Intact finger-nose testing. Intact tandem walk. Investigations None currently Assessment and Plan Tolerated Trental CR 400 mg poorly. Is tolerating Decadron not very well, with shakiness and poor sleep and increased appetite with weight gain. MRI is encouraging, in as much as there is evidence for improvement of the AVM, although there is swelling of the normal brain tissue in the treated region, likely resulting in her current symptoms. Will try lowering dose of dexamethasone to 3 mg daily, and will gradually taper to 2 mg daily after one week. After about another week we will review her progress in this regard, with possible further taper. Encouraged to try Trental ER one more time. She should make sure the tablets are extended release (as this will help some in mitigating side effects). She will be seeing neurology again today as well. She is due for follow-up in ophthalmology as well, for re-evaluation of her visual kiran. We will make arrangements. We will plan on seeing her back in 3-6 months (depending on symptoms) with repeat brain MRI then. Shraddha Chavez was seen in follow-up for a total of 40 minutes, with 35 minutes of that time spent discussing her current clinical condition, reviewing the brain MRI with her, and planning further management. Shandra Peterson RN - 02/25/2012 11:19 AM EDT 08/15 SRS-AVM 01/22/12 Increased pressure in head, jumbled words. Blurry vision bilat., body shaking, had an MRI, swellingin brain, Admitted [facility] over night, signed out AMA. 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
--- OUTSIDE RECORDS SUMMARY | 2022-05-06 08:22 | XMS_ITS | Encounter Summary ---
:1960 Author Organization [facility] Address [address] [place] [address] Care Team Providers Name Role Phone Graham Michela Stanley APRN Primary Care Provider Reason for Visit Reason Comments Follow-up Encounter Details Date Type Department Care Team Description 03/28/2012 Follow-Up General Surgery at [facility] B reast [place] (Primary Dx) [facility] [place] [address] GENERAL SURGERY [phone] [place], [place] [address] (Wo rk) Social History Tobacco [...] encounter Progress Notes Stephanie Benedict APRN - 03/28/2012 12:10 PM EDT Shraddha is a 52 y[address] Pt of Dr Barnhart who returns for a clinical breast exam and to discuss the significance of occasional white nipple discharge from the right. The discharge presents as crusting, and is spontaneous. It has never been bloody, watery or large volume. She also has some fullness in her right breast. By way of history, she initially presented in 09/2009 after a routine screening mammography performed08/14. This revealed a spiculated mass in the deep, central right breast with associated pleomorphic calcifications. Mass was approximately 2.3cm. U/S confirmed a solid mass with smaller dimensions 1.4cm). 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 MRI was then performed for surgical [...] carcinoma with lobular features, right breastTumor was ER/IA positive, HER-2/viktoria negative. One lymph node was microscopically positive with foci less than 0.2 mm. The other twonodes were negative She was treated by Dr. Lugo with 4 cycles of AC followed by whole breast xrt. She has an AVM and has been treated by Dr Tadeo today. Mammogram 05/2011 cat 1. Right medial US 12/2011 for pain was cat 1. Physical Examination: In general, the patient is [...] sentinel node excision, AC x4 and xrt. Reassured her of the benign nature of the discharge and fullness after XRT can be normal. She will have her mammogram in the next 1-2 months.Plan follow up 05/2013 with a bilateral mammogramat that time. Shraddha will call me before then with any new concerns. documented in this encounter Plan of Treatment Not on filedocumented as of this encounter Visit Diagnoses Diagnosis Breast CA - Primary Malignant neoplasm of breast (female), u nspecified site documented in this encounter Care Teams Storage Worker Relationship Specialty Start Date End Date Michela Stevenson APRN PCP - General 04/29/10 06/07/16 documented as of this encounter
--- OUTSIDE RECORDS SUMMARY | 2022-05-06 08:22 | XMS_ITS | Encounter Summary ---
:1960 Author Organization [facility] [place] [address] Care Team Providers Name Role Phone Michela Stevenson [place] Primary Care Provider Reason for Visit Reason Comments Breast Cancer Encounter Details Date Type Department Care Team Description 12/31/2011 Follow-Up Hematology Oncology at Bang Lugo MD Breast cancer (Primary [address] Dx) [address] [place] [phone] Social History Tobacco Use Types Packs/Day Years Used Date Smoking Tobacco: Some Days Cigarettes 0.3 37 L ast attempted to quit: 05/21/2010 Comments: 3 cigarettes a day Alcohol Use Standard Drinks/Week Comments No 0 (1 standard drink = 0.6 oz pure alcoho l) Sex Assigned at Date Recorded Not on file documented as of this encounter Last Filed Vital Signs Vital Sign Reading Time Taken Comments Blood Pressure 124/76 12/31/2011 11:01 AM EDT Pulse 57 12/31/2011 11:01 AM EDT Temperature 36.6 ??C (97.9 ??F) 12/31/2011 11:01 AM EDT Respiratory Rate 18 12/31/2011 11:01 AM EDT Oxygen Saturation 100% 12/31/2011 11:01 AM EDT Inhaled Oxygen Concentration - - Weight 83.9 kg (185 lb) 12/31/2011 11:01 AM EDT Height 160 cm (5' 2.99) 12/31/2011 11:01 AM EDT Body Mass Index 32.78 12/31/2011 11:01 AM EDT documented in this encounter Progress Notes Schuyler Lugo MD - 12/31/2011 11:20 AM EDT DIAGNOSIS: 1. 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 ER positive, HER-2/viktoria negative, with one lymph node microscopically positive, other two negative. 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 SUBJECTIVE: Shraddha comes in today for followup. We did send her down to [facility] for a right sided mammogram in view of her pain in burning sensation in the right breast. Fortunately that has resolvedand she is now having no pain whatsoever. Review systems is otherwise negative. Past medical history and social history are [...] supraclavicular, and axillary nodes normal Neurologic: Normal RIGHT BREAST MAMMOGRAPHY ON 12/18/11: INDICATION: Medial breast burning pain. TECHNIQUE: CC, MLO and LM films were obtained with direct digital capture demonstrating post-surgical change only, no change in scattered fibroglandular tissue pattern from prior exams. No evidence of malignancy. From conversation, burning pain is over a rather broad area and therefore no ultrasound was performed. IMPRESSION IMPRESSION: Right breast mammography: NEGATIVE (BI-RADS Category 1). Recommend clinical follow-up for breast pain. Recommend routine screening in May 2012 to coordinate Left and Right sides. Assessment/Plan: Shraddha's burning pain in the breast has completely resolved. Mammography and exam were negative. In this regard we'll simply see her back in 6 months for her routine followup. We'll order mammograms prior to that visit. She of course will let us know if any issues or problems develop in the interim. documented in this encounter Plan of Treatment Not on filedocumented as of this encounter Visit Diagnoses Diagnosis Breast cancer - Primary Malignant neoplasm of breast (female), u nspecified site documented in this encounter Care Teams Mental Health Aides Teacher Relationship Specialty Start Date End Date Michela Stevenson APRN PCP - General 04/29/10 06/07/16 documented as of this encounter
--- OUTSIDE RECORDS SUMMARY | 2022-05-06 08:22 | XMS_ITS | Encounter Summary ---
:1960 Author Organization [facility] [place] [address] Care Team Providers Name Role Phone StevensonMichela APRN Primary Care Provider Encounter Details Date Type Department Care Team Description 01/22/2012 Telephone Radiation Oncology at Domonique Pratt APRN [address] [place] [address] [place], [place] [id number] (Wo rk) Social History Tobacco Use Types [...] Telephone Encounter - Domonique James APRN - 01/22/2012 1:31 PM EDT Call was received from Shraddha indicating that on Wednesday (01/18) that she started with a massive headache with associated vomiting. Friends reported that when she talked she did not always make sense.Pain is primarily on the left. She continues with the headache and with nausea ( no vomiting since Wednesday). She also reports drooping left lid. She denies having any head injury. Patient was advised to go to the ER in [facility] for evaluation. She has a known AVM which was treated with SRS. She is scheduled to have a repeat MRI in February but a neuro evaluation is needed. Patient agrees. documented in this encounter Plan of Treatment Not on filedocumented as of this encounter Visit Diagnoses Not on filedocumented in this encounter Care Teams Machining Engineer Relationship Specialty Start Date End Date Michela Stevenson APRN PCP - General 04/29/10 06/07/16 documented as of this encounter
--- OUTSIDE RECORDS SUMMARY | 2022-05-06 08:22 | XMS_ITS | Encounter Summary ---
:1960 Author Organization [facility] [place] [address] Care Team Providers Name Role Phone Michela Stevenson [place] Primary Care Provider Encounter Details Date Type Department Care Team Description 12/18/2011 Hospital Encounter Mammography at [facility], DR [place] Breast cancer [facility] Schuyler Lugo MD [address] [place] [address] [place] [address] Social History Tobacco Use Types Packs/Day [...] Sig Dispensed Refills Start Date End Date letrozole (FEMARA) 2.5 mg Take 1 tablet by 90 tablet 2 02/201102/26/2012 tabletIndications: Breast mouth daily. cancer VITAMIN B COMPLEX Take 1 tablet by 0 11/27/2010 0 02/14/2013 ORALIndications: Breast mouth daily. CA CALCIUM CARBONATE/VITAMIN Take 1 tablet by 0 11/0605/05/2012 D3 (CALCIUM WITH VITAMIN mouth daily. D ORAL)Indications: Breast CA loratadine (CLARITIN) 10 Take 10 mg by mouth 0 06/06/2012 mg tablet daily. omeprazole (PRILOSEC) 20 Take 20 mg by mouth 0 03/17/2012 mg capsule 2 times daily. ibuprofen (ADVIL) 200 mg Take 800 mg by mouth 0 0 11/07/2010 03/24/2012 tablet as needed. documented as of this encounter Plan of Treatment Not on filedocumented as of this encounter Procedures Procedure Name Priority Date/Time Associated Diagnosis Comme nts MAMMO DIRECT DIGITAL Routine 12/18/2011 3:28 PM Malignant neop lasm Results for this UNILATERAL EDT of breast (female), procedur e are in unspecified site the results section. documented in this encounter Results MAMMO DIRECT DIGITAL UNILATERAL (12/18/2011 3:28 PM EDT) Anatomical Region Laterality Modality Breast N/A Mammography Specimen (Source) Anatomical Collection Method Collection Time Re ceived Time Location / / Volume Laterality 12/18/2011 3:28 PM EDT Impressions 12/23/2011 9:59 AM EDT IMPRESSION: Right breast mammography: NEGATIVE (BI-R ADS Category 1). Recommend clinical follow-up for breast pain. Recommend rou brianna screening in May 2012 to coordinate Left and Right sides. Narrative 12/23/2011 9:59 AM EDT RIGHT BREAST MAMMOGRAPHY ON 12/18/11: INDICATION: Medial breast burning pain. TECHNIQUE: CC, MLO and LM films were obt ained with direct digital capture demonstrating post-surgical change only, no change in scattered fibroglandular tissue pattern from prior exams. No evid ence of malignancy. From conversation, burning pain is over a rather broad area and therefore no ultrasound was performed. Procedure Note Stephanie Richards MD - 12/23/2011Format ting of this note might be different from the original. RIGHT BREAST MAMMOGRAPHY ON 12/18/11: INDICATION: Medial breast burning pain. TECHNIQUE: CC, MLO and LM films were obt ained with direct digital capture demonstrating post-surgical change only, no change in scattered fibroglandular tissue pattern from prior exams. No evid ence of malignancy. From conversation, burning pain is over a rather broad area and therefore no ultrasound was performed. IMPRESSION IMPRESSION: Right breast mammography: NEGATIVE (BI-R ADS Category 1). Recommend clinical follow-up for breast pain. Recommend rou brianna screening in May 2012 to coordinate Left and Right sides. Schuyler Lugo MD IMG MAMMO ORDERABLES documented in this encounter Visit Diagnoses Diagnosis Breast cancer Malignant neoplasm of breast (female), u nspecified site documented in this encounter Care Teams Oil Analyst Relationship Specialty Start Date End Date Michela Stevenson APRN PCP - General 04/29/10 06/07/16 documented as of this encounter
--- OUTSIDE RECORDS SUMMARY | 2022-05-06 08:22 | XMS_ITS | Encounter Summary ---
:1960 Author Organization [facility] [place] [address] Care Team Providers Name Role Phone Michela Stevenson APRN Primary Care Provider Encounter Details Date Type Department Care Team Description 11/07/2010 Abstract Ophthalmology at [facility] Marilee Sy, [place] [phone] Social History Tobacco Use Types Packs/Day Years Used Date Smoking Tobacco: Former Cigarettes 1 37 Quit : 05/21/2010 Alcohol Use Standard Drinks/Week Comments No 0 (1 standard drink = 0.6 oz pure alcoho l) Sex Assigned at Date Recorded Not on file documented as of this encounter Plan of Treatment Not on filedocumented as of this encounter Visit Diagnoses Not on filedocumented in this encounter Care Teams Career Developer Relationship Specialty Start Date End Date Michela Stevenson APRN PCP - General 04/29/10 06/07/16 (work) documented as of this encounter
--- OUTSIDE RECORDS SUMMARY | 2022-05-06 08:22 | XMS_ITS | Encounter Summary ---
:1960 Author Organization [facility] Address [address] [place] [address] Care Team Providers Name Role Phone Graham Michela Stanley APRN Primary Care Provider Reason for Visit Reason Comments Follow Up Surgery Encounter Details Date Type Department Care Team Description 07/17/2011 Follow-Up General Surgery at Stephanie Benedict B reast ca (Primary Dx) [facility] [employer] [address] [place] [address] GENERAL SURGERY [phone] [place], [place] [address] (Wo rk) Social History Tobacco Use Types Packs/Day Years Used Date Smoking Tobacco: Former Cigarettes 1 37 Quit : 05/21/2010 Alcohol Use Standard Drinks/Week Comments No 0 (1 standard drink = 0.6 oz pure alcoho l) Sex Assigned at Date Recorded Not on file documented as of this encounter Progress Notes Stephanie Benedict APRN - 07/17/2011 12:03 PM EST Shraddha is a 51 y[address] Pt of Dr Barnhart who returns in surgical follow up. 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 The patient had routine screening mammography performed 08/14. This revealed a spiculated mass in the deep, central right breast with associated pleomorphic calcifications. Mass was approximately 2.3cm. U/S confirmed a solid mass with smaller dimensions 1.4cm). Biopsy performed in 09/14 with u/s guidance revealed a mixed mammary carcinoma which is ER/NM positive. MRI was then performed for surgical planning. This revealed the known mass as well as a second lesion (category III) in the retroa reolar right breast. No left sided or axillary disease was identified. U/S biopsy of the second lesion was benign. Michela opted for BCT with simultaneous breast reduction b/l. Pathology revealed: A 1.5-cm invasive ductal carcinoma with lobular features, right breastTumor was ER/NM positive, HER-2/viktoria negative. One lymph node was microscopically positive with foci less than 0.2 mm. The other twonodes were negative She was treated by Dr. Lugo with 4 cycles of AC followed by whole breast xrt. She denies breast masses. No lymphedema of the right arm although she notes the arm distally feels weak over the last week. She has an AVM and has been suffering worsening headaches,seeing Dr Tadeo later today. No fever, chills, sob, cough, abd pain. Mammogram 05/2011 cat 1. Physical Examination: In general, the [...] Good range of motion of both shoulders. Assessment: 51 yo female with clinical stage IIA IDC of the right breast. Doing well s/p breast conservation therapy with partial mastectomy, sentinel node excision, AC x4 and xrt.Plan follow up 05/2012 with a bilateral mammogram at that time. Shraddha will call me before then with any new concerns. documented in this encounter Plan of Treatment Not on filedocumented as of this encounter Visit Diagnoses Diagnosis Breast CA - Primary Malignant neoplasm of breast (female), u nspecified site documented in this encounter Care Teams Loan Processor Relationship Specialty Start Date End Date Michela Stevenson APRN PCP - General 04/29/10 06/07/16 documented as of this encounter
--- OUTSIDE RECORDS SUMMARY | 2022-05-06 08:22 | XMS_ITS | Encounter Summary ---
:1960 Author Organization [facility] Address [facility] [address] [place] [address] Care Team Providers Name Role Phone Michela Stevenson [place] Primary Care Provider Reason for Visit Reason Onset Date Comments Other 12/04/2011 burning on breast Encounter Details Date Type Department Care Team Description 12/04/2011 Telephone Hematology Oncology at Jennifer Becerra RN Other (burning on [facility] breast) [address] [place] [phone] Social History Tobacco Use Types Packs/Day [...] Telephone Encounter - Jennifer Becerra RN - 12/04/2011 1:32 PM EDT Patient called and stated she has burning on right breast where she had breast cancer. It has been going on for 2 days. She called PCP office they cannot see her. She had chemo and radiation. She has been out in sun with very little protection. She has no redness, fever, swelling. Spoke wit Dr. Alvarado he would like Amy Moore to see and examine her next week. Appointment being made and office will contact pt. Pt agrees with plan. documented in this encounter Plan of Treatment Not on filedocumented as of this encounter Visit Diagnoses Not on filedocumented in this encounter Care Teams Outdoor Studies Professor Relationship Specialty Start Date End Date Michela Stevenson APRN PCP - General 04/29/10 06/07/16 documented as of this encounter
--- OUTSIDE RECORDS SUMMARY | 2022-05-06 08:22 | XMS_ITS | Encounter Summary ---
:1960 Author Organization [facility] [place] [address] Care Team Providers Name Role Phone Michela Stevenson [place] Primary Care Provider Encounter Details Date Type Department Care Team Description 01/22/2012 External Results XRay at [facility] Fernando Paniagua MD [address] [place] [address] Dr CAMMY BROWER [address] [place] [address] [place], [place] [address] (Wo rk) Social History Tobacco Use Types [...] Associated Diagnosis Comme nts CT SCAN (SCAN) Routine 01/22/2012 MRI/MRA SCAN Routine 02/12/2010 documented in this encounter Results Scan Doc: CT Scan (01/22/2012) Anatomical Region Laterality Modality Other Narrative This result has an attachment that is no t available. Fernando Paniagua MD MEDIA MGR SCAN EXT ORDR/RSLT Scan Doc: MRI/MRA (02/12/2010) Anatomical Region Laterality Modality Other Narrative This result has an attachment that is no t available. Fadi Contreras MD MEDIA MGR SCAN EXT ORDR/RSLT documented in this encounter Visit Diagnoses Not on filedocumented in this encounter Care Teams Broker Agricultural Produce Relationship Specialty Start Date End Date Michela Stevenson APRN PCP - General 04/29/10 06/07/16 documented as of this encounter
--- OUTSIDE RECORDS SUMMARY | 2022-05-06 08:22 | XMS_ITS | Encounter Summary ---
:1960 Author Organization [facility] [place] [address] Care Team Providers Name Role Phone Michela Stevenson [place] Primary Care Provider Reason for Visit Reason Comments Radiation Follow-up SRS Encounter Details Date Type Department Care Team Description 05/28/2011 Hospital Encounter Radiation Oncology CLINIC, DR YOBANI CHOWDARY (arteriovenous at [facility], Gregory Doran MD [facility] [place] [address] malformation) [place] [address] Social History Tobacco Use Types Packs/Day Years Used Date Smoking Tobacco: Former Cigarettes 1 37 Quit : 05/21/2010 Alcohol Use Standard Drinks/Week Comments No 0 (1 standard drink = 0.6 oz pure alcoho l) Sex Assigned at Date Recorded Not on file documented as of this encounter Last Filed Vital Signs Vital Sign Reading Time Taken Comments Blood Pressure 121/82 05/28/2011 1:51 PM EST Pulse 104 05/28/2011 1:51 PM EST Temperature 36.8 ??C (98.3 ??F) 05/28/2011 1:51 PM EST Respiratory Rate 20 05/28/2011 1:51 PM EST Oxygen Saturation 97% 05/28/2011 1:51 PM EST Inhaled Oxygen Concentration - - Weight 89.4 kg (197 lb) 05/28/2011 1:51 PM EST Height - - Body Mass Index 34.39 05/15/2011 1:43 PM EST documented in this encounter Discharge Instructions Patient InstructionsHarGregory starkey MD - 05/28/2011 3:00 PM EST Overall symptomatically improving, which is encouraging. The MRI is stable today, without evident adverse sequelae from your stereotactic radiosurgery. We will see you back in six months with repeat brain MRI then. Please call with any questions or concerns. documented in this encounter Medications at Time [...] as needed. documented as of this encounter Progress Notes Gregory Tadeo MD - 05/28/2011 2:54 PM EST Identification Shraddha Chavez is a 51 y.o. 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 We originally saw her here in radiation oncology in consultation on April 29, 2010. CT/angiogramand brain MRI scans, June 19, 2010, demonstrated a left temporal lobe AV malformation with the bulk of the nidus spanning 3 x 2.2 cm in greatest axial dimension. She undewent stereotactic radiosurgery treatment on August 12, 2010. We saw her in follow-up on 11/13/10, at which time MRI appeared stable. Of note, she had seen Dr. Ward on November 07, and was found to have minimal cataracts and deep optic nerve head drusen, potentially contributing to her visual field defect. However, her kiran were noted to have changed and improved since her last VF, though with some unreliability on the test parameters.Ophthalmologic follow-up was planned at one year. Patient has also been in follow-up for her breast cancer, having most recently undergone bone scan on October 16. This demonstrated no evidence of bony metastatic disease. She returns in routine follow-up with repeat brain MRI. Interval history Repeat MRI performed today, 05/28/11, per radiology review shows no significant change. Symptomatically, headaches are less frequent and less severe, perhaps only 3 or 4 a day instead of aconstant stream. Severity is still quite bad, 10 on 10-point scale, with occasionally associated nausea, but no emesis. These last from 20 to 40 minutes, or occasionally longer. Nevertheless, she expresses relief that they are less frequent and more intermittent than they were in the past. Does note so me visual issues, especially at night, with flashing lights making her dizzy. If this happens when driving at night, she finds she must conductor pullman and wait for these episodes to go away, which may take about 60 seconds or so. These episodes arise maybe about twice a week. Also has episodes during the day, which she describes as the left or right eye turning inwards, and then she feels dizzy, and then the episode resolves after about a minute. But she notes no darkening of her visual kiran -- which she had been experiencing before the SRS treatment. Currently not on any seizure medications, and has no history of seizures. Walking fine, without balance issues. Current outpatient prescriptions ordered prior to encounter Medication Sig Dispense Refill ??? letrozole (FEMARA) 2.5 mg tablet Take [...] needed. Allergies Allergen Reactions ??? Gloves, Latex ITCHING, RASH, ??? Codeine Phos Hives, Nausea And Vomiting and Rash VOMITING,RASH, HIVES, ??? Toradol (Ketorolac Tromethamine) Hives Hives ??? Morphine Sulfate Nausea And Vomiting Nausea/Vomiting, ??? Ibuprofen Nausea And Vomiting Has n/v If taken on empty stomach. She states she is OK if she takes it with food. ??? Nsaids Nausea Only and Rash ??? Oxycodone-acetaminophen Nausea And Vomiting Has n/v if taken on empty stomach. ??? Promethazine Hcl Nausea And Vomiting ??? Hydrocodone-acetaminophen Nausea And Vomiting ??? Hydromorphone Nausea And Vomiting ??? Adhesive Tape Other (See Comments) Localized Reaction ??? Aspirin Rash ??? Tramadol Nausea And Vomiting ??? Magnesium Rash ??? Cortisone hot all over / fever, ??? Sulfa (Sulfonamide Antibiotics) Hives Physical Exam BP 121/82 Pulse 104 Temp(Src) 36.8 ??C (98.3 ??F) (Oral) Resp 20 Wt 89.359 kg (197 lb) SpO2 97% No papilledema bilaterally. Pupils equal, [...] Intact finger-nose testing. Intact tandem walk. Investigations Brain MRI shows no signifcant change in the treated AVM nor adverse sequelae of her SRS treatment. Assessment and Plan Symptomatically improving Brain MRI remains stable over the past nine months, following treatment ofher AVM with SRS. We will see her back in 6 months with repeat brain MRI then. Shraddha Chavez was seen in follow-up for a total of 25 minutes, with 20 minutes of that time spent discussing her current clinical condition, reviewing her current MRI result, and planning further management. Shandra Locke RN - 05/28/2011 2:45 PM EST Review of Systems Constitutional: Positive for malaise/fatigue. Eyes: Positive for blurred vision (eyes wander.). Negative for photophobia (blinking lights ). Respiratory: Negative. Cardiovascular: Negative. Gastrointestinal: Negative. Genitourinary: Negative. Musculoskeletal: Positive for back pain (chronic). Skin: Positive for rash (peticia rt upper arm). Neurological: Positive for dizziness (more frequent), sensory change (both lg toes ice cold) and headaches (improving). Endo/Heme/Allergies: Negative. Does not bruise/bleed easily (peticia). Psychiatric/Behavioral: Positive for depression and memory loss. The patient has insomnia. 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
--- OUTSIDE RECORDS SUMMARY | 2022-05-06 08:22 | XMS_ITS | Encounter Summary ---
:1960 Author Organization [place] [address] Care Team Providers Name Role Phone Luz Stevensonmaurice Stanley APRN Primary Care Provider Encounter Details Date Type Department Care Team Description 03/18/2012 Orders Only Radiation Oncology at Wilfredo James APRN Nausea (Primary Dx) [address] RADIATION ONCOLOGY [place], [place] [id number] [place] [phone] Social History Tobacco Use Types Packs/Day Years [...] encounter Progress Notes Domonique James APRN - 03/18/2012 2:14 PM EDT Call from patient indicating that she has constant nausea and that she can not tolerate it any longer. As discussed with her yesterday we are arranging for her to be seen by neuro again and by Dr Ward. We will start her on vistaril 50 mg three times a day PRN for the nausea in the interim. documented in this encounter Plan of Treatment Not on filedocumented as of this encounter Visit Diagnoses Diagnosis Nausea - Primary Nausea alone documented in this encounter Care Teams Creative Writing English Professor Relationship Specialty Start Date End Date Michela Stevenson APRN PCP - General 04/29/10 06/07/16 documented as of this encounter
--- OUTSIDE RECORDS SUMMARY | 2022-05-06 08:22 | XMS_ITS | Encounter Summary ---
:1960 Author Organization [facility] Address [address] [place] [address] Care Team Providers Name Role Phone Michela Stevenson Jaden FIGUEROA Primary Care Provider Reason for Visit Reason Comments Follow Up Surgery Encounter Details Date Type Department Care Team Description 05/12/2011 Follow-Up General Surgery at [facility] B reast ca (Primary Dx) [facility]ly [facility] [place] [address] GENERAL SURGERY [phone] [place], [place] [address] (Wo rk) Social History Tobacco Use Types Packs/Day Years Used Date Smoking Tobacco: Former Cigarettes 1 37 Quit : 05/21/2010 Alcohol Use Standard Drinks/Week Comments No 0 (1 standard drink = 0.6 oz pure alcoho l) Sex Assigned at Date Recorded Not on file documented as of this encounter Last Filed Vital Signs Vital Sign Reading Time Taken Comments Blood Pressure 106/79 05/12/2011 1:44 PM EST Pulse 89 05/12/2011 1:44 PM EST Temperature - - Respiratory Rate 16 05/12/2011 1:44 PM EST Oxygen Saturation 97% 05/12/2011 1:44 PM EST Inhaled Oxygen Concentration - - Weight 91.9 kg (202 lb 9.6 oz) 05/12/2011 1:41 PM EST Height - - Body Mass Index 35.37 01/22/2011 3:15 PM EDT documented in this encounter Progress Notes Stephanie Benedict APRN - 05/12/2011 4:38 PM EST Shraddha is a 51 y.o[address] Pt of Dr Barnhart who returns in surgical follow up and evaluation of a small mass along her medial areolar on the right at 0900. 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 Michela opted for BCT with simultaneous breast reduction b/l. Pathology revealed: A 1.5-cm invasive ductal carcinoma with lobular features, right breastTumor was ER/OH positive, HER-2/viktoria negative. One lymph node was microscopically positive with foci less than 0.2 mm. The other twonodes were negative She was treated by Dr. Lugo with 4 cycles of AC followed by whole breast xrt. In June she notedwhite crystals in the right nipple with some yellow discharge. U/S and mammogram revealed oil cysts,no masses on 07/02/10. This past week she noticed a small,firm mass in the medial aspect of her right breast. She is scheduled for a mammogram and US later today. Physical Examination: In general, the patient is a well-developed and well- nourished female in no apparent distress. Lymphatics: No evidence of cervical, supraclavicular, or axillary lymphadenopathy. Breast: The breasts are slightly asymmetrical with R mildly larger than the left. No skin changes. There are no obvious palpable masses noted in her left breast. Her right breast is notable for a 3-4mm firm mass along the areolar edge.It is superficial and feelsas if it is in the soft tissue vs the breast parenchyma.The upper extremities are without evidence of lymphedema. Assessment: 51 yo female with clinical stage IIA IDC of the right breast Small mass in right breast,likely benign. Will review imaging and call her to discuss follow up. She agrees with this plan. documented in this encounter Plan of Treatment Not on filedocumented as of this encounter Visit Diagnoses Diagnosis Breast CA - Primary Malignant neoplasm of breast (female), u nspecified site documented in this encounter Care Teams Securities Supervisor Relationship Specialty Start Date End Date Michela Stevenson APRN PCP - General 04/29/10 06/07/16 documented as of this encounter
--- OUTSIDE RECORDS SUMMARY | 2022-05-06 08:22 | XMS_ITS | Encounter Summary ---
:1960 Author Organization [facility] [place] [address] Care Team Providers Name Role Phone Michela Stevenson CAROLINA Primary Care Provider Encounter Details Date Type Department Care Team Description 01/22/2012 Orders Only Neurology at [facility] Scot Garland MD [address] [place] [address] NEUROLOGY DEPT. [phone] [place], [place] [address] (Wo rk) Social History Tobacco [...] Associated Diagnosis Comme nts FILM LIBRARY Routine 01/22/2012 6:22 PM Results f or this STORAGE ONLY CT EDT procedure ar e in HEAD the results section. documented in this encounter Results FILM LIBRARY- STORAGE ONLY CT HEAD (01/22/2012 6:22 PM EDT) Specimen (Source) Anatomical Collection Method Collection Time Re ceived Time Location / / Volume Laterality 01/22/2012 6:22 PM EDT Narrative [facility] - 10/31/2013 11:35 AM EDT This is a non-reportable exam. Procedure Note Carrillo Sprauge - 10/31/2013Formatting of t his note might be different from the original. This is a non-reportable exam. Scot Garland MD IMG FILM LIBRARY ORDERABLES Performing Organization Address City/State/ZIP Code Phon e Number [facility] [address] [place] [address] documented in this encounter Visit Diagnoses Not on filedocumented in this encounter Care Teams Procedures Analyst Relationship Specialty Start Date End Date Michela Stevenson APRN PCP - General 04/29/10 06/07/16 documented as of this encounter
--- OUTSIDE RECORDS SUMMARY | 2022-05-06 08:22 | XMS_ITS | Encounter Summary ---
:1960 Author Organization [facility] [place] [address] Care Team Providers Name Role Phone Michela Stevenson CAROLINA Primary Care Provider Encounter Details Date Type Department Care Team Description 10/22/2011 Telephone Allergy at [facility] [place] Malkia Higgins MD [facility] [place] [address] ALLERGY AND IMMUNOLOGY [phone] [place], [place] [address] (Wo rk) Social History Tobacco [...] this encounter Miscellaneous Notes Telephone Encounter - Malika Higgins MD - 10/22/2011 2:01 PM EDT Josh Llanes, I saw Shraddha Chavez today for history of multiple drug allergies. Unfortunately, she could not recall all the drugs to which she has reacted in the past. Could you send me a list of her drug allergies and also your notes from the past year? Carol Ann Fonseca documented in this encounter Plan of Treatment Not on filedocumented as of this encounter Visit Diagnoses Not on filedocumented in this encounter Care Teams Dip Brazier Relationship Specialty Start Date End Date Michela Stevenson APRN PCP - General 04/29/10 06/07/16 documented as of this encounter
--- OUTSIDE RECORDS SUMMARY | 2022-05-06 08:22 | XMS_ITS | Encounter Summary ---
:1960 Author Organization [facility] Address [facility] [place] [address] Care Team Providers Name Role Phone Michela Stevenson CAROLINA Primary Care Provider Reason for Visit Reason Comments Radiation Follow-up SRS followup Encounter Details Date Type Department Care Team Description 11/19/2011 [place] [facility] [place] [place] [facility] ([facility] Malika Alex MD malformation) ([facility] Dx) [facility] [place] [address] [place] [address] [phone] (Wo rk) Social History Tobacco Use Types [...] Reading Time Taken Comments Blood Pressure 126/80 11/19/2011 11:25 AM EDT Pulse 88 11/19/2011 11:25 AM EDT Temperature 37.1 ??C (98.8 ??F) 11/19/2011 11:25 AM EDT Respiratory Rate 20 11/19/2011 11:25 AM EDT Oxygen Saturation 99% 11/19/2011 11:25 AM EDT Inhaled Oxygen Concentration - - Weight 85.3 kg (188 lb) 11/19/2011 11:25 AM EDT Height - - Body Mass Index 33.3 10/22/2011 1:10 PM EDT documented in this encounter Patient Instructions Patient InstructionsHarGregory starkey MD - 11/19/2011 12:45 PM EDT You are do superlatively, with improved symptoms and improved results on your MRI. We will re-check your MRI again in February. Meanwhile, please call with any questions or concerns. documented in this encounter Progress Notes Gregory Tadeo MD - 11/19/2011 12:44 PM EDT Identification Shraddha Chavez is a 51 y.o. [...] no evidence of bony metastatic disease. She was seen 05/28/11, at which point MRI showed no significant change, and she was symptomatically stable. Domonique James saw her 08/04/11, at which point MRI demonstrated interval decreased size of the left temporal lobe AVM with evidence for decreased flow-related enhancement. Meanwhile, the patient continuedwith intermittent severe headaches as well as some visual symptoms of flashing lights arising intermittently for about 60 seconds or so at a time. Patient returns in routine follow-up. Interval history Headaches are improved, now quite rare, perhaps once or twice a month. When they occur, they may rise to a level of about 8 on a 10 point scale. These may last a half hour or longer. Last CERVANTES was Wednesday, but very few prior to that. Some nausea with the headache. She does note some visual changes prior to the headaches, with flashing lights. Sometimes also notes the visual symptoms without headaches, maybe one or two a week. Not doing much night driving anymore. Does not note darkening of a portion of the VF (which was occurring prior to her SRS treatment). Currently not on any seizure medications, and has no history of seizures. Walking fine, without balance issues. Remainder of ROS notable for intentional weight loss of more than 40 lbs. She continues to smoke, but has cut this down to about 7 cigarettes a day. Current outpatient prescriptions ordered prior to encounter Medication Sig Dispense Refill ??? VITAMIN B COMPLEX ORAL Take 1 [...] Take 800 mg by mouth as needed. ??? letrozole (FEMARA) 2.5 mg tablet Take 1 tablet by mouth daily. 90 tablet 2 Allergies Allergen Reactions ??? Gloves, Latex Itching [...] Sulfa (Sulfonamide Antibiotics) Hives Physical Exam BP 126/80 Pulse 88 Temp(Src) 37.1 ??C (98.8 ??F) (Oral) Resp 20 Wt 85.276 kg (188 lb) UiM519% No papilledema bilaterally. Pupils equal, round, reactive to light. Extraocular movements intact. Visual kiran full to confrontation bilaterally. Strength and sensation bilaterally symmetric and intact across the face. Hearing intact bilaterally. Shoulder shrug and sternocleidomastoid functions bilaterally intact. Uvula elevates midline. Tongue extends midline. Strength, sensation intact in the upper and lower extremities. Hyporeflexic. Stable gait. Negative Romberg. Intact finger-nose testing. Intact tandem walk. Investigations Brain MRI shows no signifcant change in the treated AVM nor adverse sequelae of her SRS treatment. Assessment and Plan Symptomatically improving Brain MRI remains stable over the past nine months, following treatment ofher AVM with SRS. We will see her back in 6 months with repeat brain MRI then. Srhaddha Chavez was seen in follow-up for a total of 25 minutes, with 20 minutes of that time spent discussing her current clinical condition, reviewing her current MRI result, and planning further management. documented in this encounter Plan of Treatment Not on filedocumented as of this encounter Results MRI brain with/WO contrast (01/29/2012 4:20 PM EDT) Anatomical Region Laterality Modality Head Magnetic Resonance Specimen (Source) Anatomical Collection Method Collection Time Re ceived Time Location / / Volume Laterality 01/29/2012 4:20 PM EDT Narrative 01/29/2012 6:24 PM EDT Examination MR BRAIN W/WO CONTRAST Clinical History ARTERIOVENOUS MALFORMATION S/P SRS in August 2010 Eval for response AVM-protocol Comparison MRI 08/04/2011. Technique MRI of the brain performed prior to and following intravenous administration of 18 mL Magnevist. Findings Previously seen left mesial temporal art eriovenous malformation has changed in appearance. ??The large draining vein at the posterior and inferior aspect is decreased in size. ??There is enhancemen t within the lesion on post-contrast images. ??The overall area of enhancemen t has slightly increased in size compared to the previous study. ??There is FLAIR and T2 signal abnormality within the lesion. ??The ventricles remberto in normal in size and contour. ??There is no abnormal enhancement elsewhere. ??The re is no evidence of infarct. ??No other change is seen aside from this region. Impression Change in appearance of the left medial temporal arterial venous malformation with apparent decrease in size of flow v oid corresponding to a large draining vein, and increased size of parenchymal enhancement. Procedure Note Lb Hicks MD - 01/29/2012Format ting of this note might be different from the original. Examination MR BRAIN W/WO CONTRAST Clinical History ARTERIOVENOUS MALFORMATION S/P SRS in August 2010 Eval for response AVM-protocol Comparison MRI 08/04/2011. Technique MRI of the brain performed prior to and following intravenous administration of 18 mL Magnevist. Findings Previously seen left mesial temporal art eriovenous malformation has changed in appearance. The large draining vein at t he posterior and inferior aspect is decreased in size. There is enhancement within the lesion on post-contrast images. The overall area of enhancement has slightly increased in size compared to the previous study. There is FLAIR and T2 signal abnormality within the lesion. The ventricles remain normal in size and contour. There is no abnormal enhancement elsewhere. There is no evidence of infarct. No other change is seen aside from this region. Impression Change in appearance of the left medial temporal arterial venous malformation with apparent decrease in size of flow v oid corresponding to a large draining vein, and increased size of parenchymal enhancement. 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
--- OUTSIDE RECORDS SUMMARY | 2022-05-06 08:22 | XMS_ITS | Encounter Summary ---
:1960 Author Organization [facility] [place] [address] Care Team Providers Name Role Phone Michela Stevenson CAROLINA Primary Care Provider Encounter Details Date Type Department Care Team Description 02/25/2012 Office Visit [place]rology at [facility] Scot Garland, Headache (Primary Dx); [facility] Atypical migraine; [facility] Dysphasia; [place], [place] Radiation adverse effect; [id number] [address]PT[address] AVM (arteriovenous malformation) brain [phone] [place], [place] [address] Social History Tobacco Use Types [...] Sign Reading Time Taken Comments Blood Pressure 106/63 02/25/2012 1:55 PM EDT Pulse 81 02/25/2012 1:55 PM EDT Temperature - - Respiratory Rate - - Oxygen Saturation - - Inhaled Oxygen Concentration - - Weight 92.3 kg (203 lb 8 oz) 02/25/2012 1:55 PM EDT Height 160 cm (5' 3) 02/25/2012 1:55 PM EDT Body Mass Index 36.05 02/25/2012 1:55 PM EDT documented in this encounter Patient Instructions Patient InstructionsScot Garcia - 02/25/2012 2:57 PM EDT 1. Start verapamil 20 mg twice daily. If you get dizzy check BP and stop if there is fall in BP. Constipation is another side effect of this medication. 2. Take atarax 25 mg twice daily daily for headache prevention. 3. Follow up in 3 months. 4. You are being started on low dose medications. Call us us if symptoms not improved. We can make medication adjustment 5. Tylenol as needed for headache documented in this encounter Progress Notes Scot Garcia - 02/25/2012 5:00 PM EDT Chief complaint Headache, transient vision and speech problems History of Presenting Illness 52 Y F recently seen in ED due to headache and transient speech deficits comes for f/up Headaches started 2 years ago after chemotherapy for her breast cancer. Further workup showed presence of an AVM on the left temporal region. She was evaluated by neurosurgery. She was high risk surgery due to deep penetration of vessels. Plan was made for stereotactic radiosurgery which she got in 08/2010. Following the radiation therapy her headaches have worsened. According to her she has headache almost jade other day. She describes it as severe pressure like sensation mostly on the left side of her headache , retro-orbital stabbing typ sensation usually around 7/10 in severity that could last for hours. She was thought to have radiation associated changes and was started on dexamethasone and trental for these symptoms. In addition to headaches these episodes are characterized by cloudy vision of both eyes. She says her vision is poor at baseline, thought to be secondary to cataract. She also complains of visual fielddeficit in the left side which she says was secondary to involvement of her retina of left eye due to the radiation. During the episodes of severe headaches, she also has speech difficulties. She has trouble finding words and others may not be able to understand what she is saying during these episodes Both visual symptoms and speech symptoms are relieved once headache resolves She has associated nausea with these episodes but no photophobia or vomiting She was seen in radiation oncology today and was started on a dexamethasone taper Past Medical History Breast cancer , diagnosed in september 2009 s/p partial mastectomy, chemotherapy, radiotherapy total knee replacement Cerebral A-V Mallformation: January 2010: MRI at [facility] showed tortuos ectatic vessels in the medial left temproal lobe spanning 2cm or mor in diameter. MRI 07/2011 showed interval decrease in size of the left temporal lobe AVM wiht decreased flow treated with radiation as noted above. Cataract and optic nerve head drusen in 11/07/2010, vision subsequently found to be improved H/o headaches associated with AVM GERD Arthritis Carpal tunnel release Hysterectomy Rotator cuff repair Family History father murdered 33 years ago. had enlarged heart and AVM mother had CHF Personal/ Socioeconomic history smoking + alcohol occasional Medications/ Allergy Meds: loratidine 10 daily, vit B , ibuprofen, letrozole 2.5 daily, ocal 500 D, Cyclobenzaprine 10 daily, deslansoprazole, bisacodyl. Allergies: Latex, coein, toradol, morphine, NSAIDs, oxycodone, promethazine, vicodin, hydromorphone,adhesive, aspirin, tramadol, magnesiu, cortisone, sulfa ROS Constitutional: No fevers or chills Eyes: field cut on left, cloudy vision ENT: No rhinorrhea or pharyngitis, no meningismus . CV: No chest pain or palpitations Resp: No cough, no shortness of breath GI: Nausea + Heme: No bleeding or bruising Endo: No diabetes Neuro: See HPI Vitals: Temp: [36.9 ??C (98.4 ??F)] Heart Rate: [66-81] Resp: -- BP: (106-116)/(54-63) SpO2: [97 %] Physical Examination Mod built, overweight Lungs clear S1S2 normal Abdomen soft Neurological Examination Alert and oriented. speech normal. reading normal. no dysarthria pupils equal. ? left inferior quadrantanopia vision left 20/100, R 20/70 EOMI. No facial asymmetry Normal hearing Sensations equal on both sides of face Full strenth bialterally Labs/ Imaging MRI brain: left temporal AVM, decreased in size Assessment and Plan 52 Y F with history of AVM s/p SRS in 08/2010, breast cancer s/p resection, chemo/radio therapy recently seen in ED due to headaches, speech deficits. Patient has recurring headaches with atypical migraine type pheonomenon, speech problems since radiation therapy for AVM. Being treated with dexamethasone, trental. AVM decreasing in size on f/up MRI. Neurological examination pertitnet for diminished vision bialterally, ? left inferior quadrantanopia ? secondary to optic nerve / retinal problems. 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 Garcia. I have reviewed the resident's history during the visit and I agree with the details as written. My physical examination confirms the resident's findings. The assessment and plan were formulated in discussion with me at the time of the visit and I agree with them as documented. The patient has intractable headaches following radiation therapy for left temporal arteriovenous malformation. Her exam is substantially normal. There is a questionable left temporal field in the lefteye. I think we should treat her with a calcium channel anjelica for migraine, in addition to steroids andgrandchild that she is receiving. Topamax could also be considered. Tylenol and hydroxyzine can be used as needed. If we can get the frequency of the headache down with prophylactic treatment, an occasional headache could be treated with a triptan drug. If she does not improve with this approach, I would consider inpatient hospitalization for intravenous therapy with Thorazine and/or dihydroergotamine. Ibuprofen should I think be minimized while she is on a steroid taper Scot Garland MD [place] [address] Pager #[phone] Email: [email or web address] documented in this encounter Plan of Treatment Not on filedocumented as of this encounter Visit Diagnoses Diagnosis Headache(784.0) - Primary Headache Atypical migraine Other forms of migraine, without mention of intractable migraine without mention of status migrainosus Dysphasia Other speech disturbance Radiation adverse effect Effects of radiation, unspecified AVM (arteriovenous malformation) brain Congenital anomaly of cerebrovascular sy stem documented in this encounter Care Teams Director Digital Catalogue Relationship Specialty Start Date End Date Michela Stevenson APRN PCP - General 04/29/10 06/07/16 documented as of this encounter
--- OUTSIDE RECORDS SUMMARY | 2022-05-06 08:22 | XMS_ITS | Encounter Summary ---
:1960 Author Organization [facility] [place] [address] Care Team Providers Name Role Phone Michela Stevenson CAR[place] Primary Care Provider Encounter Details Date Type Department Care Team Description 05/12/2011 Hospital Encounter Mammography at [facility], [place] [address] Social History Tobacco Use Types Packs/Day [...] Take 1 tablet by 90 tablet 2 10/201005/15/2011 tabletIndications: Breast mouth daily. cancer VITAMIN B [...] Diagnosis Comme nts MAMMO DIAGNOSTIC CAD Routine 05/12/2011 3:01 PM Malignant neop lasm Results for this BILATERAL EST of breast (female), procedur e are in unspecified site the results section. documented in this encounter Results MAMMO DIGITAL BILATERAL DIAGNOSTIC WITH CAD (05/12/2011 3:01 PM EST) Anatomical Region Laterality Modality Breast Bilateral Mammography Specimen (Source) Anatomical Collection Method Collection Time Re ceived Time Location / / Volume Laterality 05/12/2011 3:01 PM EST Narrative 05/13/2011 11:37 AM EST BILATERAL MAMMOGRAM AND RIGHT BREAST ULT RASOUND ON 05/12/11: ? CLINICAL INDICATION: Patient palpated ar ea of concern. Patient has had prior wide local excision and reduction mammop lasty on this breast 09/14. ?? TECHNIQUE: Bilateral CC and MLO views wi th additional 90-degree ML view obtained with direct digital capture and BB marking the area of palpable concern in the Right breast laterally at 0900, 2cm from the nipple. This exam was evaluated by CAD version 8.3.17. ?? FINDINGS: Bilateral mammogram shows dist ortion from the prior reduction mammoplasties in both breasts and the wi de local excision in the inferior aspect of the Right breast. No finding w orrisome for malignancy is seen in either breast. In the area of palpable c oncern there is a minimal amount of residual stable fibroglandular tissue. ? Focused ultrasound to the indicated area of concern shows no sonographic abnormality. On the mammogram adjacent t o the BB there is a small area of fat necrosis on the CC view with central rae ency. This may be what the patient is feeling along with the residual fibrogla ndular tissue in this area. ?? CONCLUSION: ?? NEGATIVE bilateral mammogram with diagno stic imaging of the Right breast and Right breast ultrasound (BIRADS Category 1). Clinical follow-up advised. Otherwise, assuming no further breast co ncerns, continue with routine screening. Procedure Note Kaylee Lopez MD - 05/13/2011 BILATERAL MAMMOGRAM AND RIGHT BREAST ULT RASOUND ON 05/12/11: CLINICAL INDICATION: Patient palpated ar ea of concern. Patient has had prior wide local excision and reduction mammop lasty on this breast 09/14. TECHNIQUE: Bilateral CC and MLO views wi th additional 90-degree ML view obtained with direct digital capture and BB marking the area of palpable concern in the Right breast laterally at 0900, 2cm from the nipple. This exam was evaluated by CAD version 8.3.17. FINDINGS: Bilateral mammogram shows dist ortion from the prior reduction mammoplasties in both breasts and the wi de local excision in the inferior aspect of the Right breast. No finding w orrisome for malignancy is seen in either breast. In the area of palpable c oncern there is a minimal amount of residual stable fibroglandular tissue. Focused ultrasound to the indicated area of concern shows no sonographic abnormality. On the mammogram adjacent t o the BB there is a small area of fat necrosis on the CC view with central rae ency. This may be what the patient is feeling along with the residual fibrogla ndular tissue in this area. CONCLUSION: NEGATIVE bilateral mammogram with diagno stic imaging of the Right breast and Right breast ultrasound (BIRADS Category 1). Clinical follow-up advised. Otherwise, assuming no further breast co ncerns, continue with routine screening. Stephanie Benedict APRN IMG MAMMO ORDERABLES documented in this encounter Visit Diagnoses Diagnosis Breast cancer Malignant neoplasm of breast (female), u nspecified site documented in this encounter Care Teams Coal Cager Relationship Specialty Start Date End Date Michela Stevenson APRN PCP - General 04/29/10 06/07/16 documented as of this encounter
--- OUTSIDE RECORDS SUMMARY | 2022-05-06 08:22 | XMS_ITS | Encounter Summary ---
:1960 Author Organization [facility] [place] [address] Care Team Providers Name Role Phone Michela Stevenson APRN Primary Care Provider Encounter Details Date Type Department Care Team Description 02/26/2012 Orders Only Hematology Oncology at [facility] Bre ast cancer (Primary [facility] RN Dx) [address] [place] [address] Social History Tobacco Use Types [...] site documented in this encounter Care Teams Electronics Assembler And Tester Relationship Specialty Start Date End Date Michela Stevenson APRN PCP - General 04/29/10 06/07/16 documented as of this encounter
--- OUTSIDE RECORDS SUMMARY | 2022-05-06 08:22 | XMS_ITS | Encounter Summary ---
:1960 Author Organization [place] [address] Care Team Providers Name Role Phone Michela Stevenson [place] Primary Care Provider Reason for Visit Reason Comments Breast Cancer Encounter Details Date Type Department Care Team Description 09/17/2011 Follow-Up Hematology Oncology at Bang Lugo MD Breast cancer (Primary [address] Dx) [address] [place] [address] [id number] [phone] Social History Tobacco Use Types Packs/Day Years [...] Reading Time Taken Comments Blood Pressure 121/82 09/17/2011 2:38 PM EDT Pulse 78 09/17/2011 2:38 PM EDT Temperature 36.7 ??C (98.1 ??F) 09/17/2011 2:38 PM EDT Respiratory Rate 18 09/17/2011 2:38 PM EDT Oxygen Saturation 99% 09/17/2011 2:38 PM EDT Inhaled Oxygen Concentration - - Weight 87 kg (191 lb 12.8 oz) 09/17/2011 2:38 PM EDT Height 161.2 cm (5' 3.47) 09/17/2011 2:38 PM EDT Body Mass Index 33.48 09/17/2011 2:38 PM EDT documented in this encounter Progress Notes Schuyler Lugo MD - 09/17/2011 3:08 PM EDT DIAGNOSIS: 1. 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 ER positive, HER-2/viktoria negative, with one lymph node microscopically positive, other two negative. 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 SUBJECTIVE: Shraddha comes in today for followup. She is doing well overall though she is still havingher headaches. Doesn't add in her history of her AV malformation she did get another MRI which fortunately does not show any problems in fact the AVM is smaller. She also had some questionable areas inher right breast. She notes that further evaluation led to the conclusion that these were areas of old scar tissue. Review systems is otherwise negative. Past medical history and social history are reviewed. There is some family stress with her 16-year-old having a fractured femur. He will probably be okay but he is in the process of healing up from that and cannot weight-bear at this time. Review of Systems Constitutional: Negative for fever, [...] respirations unlabored Chest Wall: No tenderness or deformity Heart: Regular rate and rhythm, S1, S2 normal, no murmur, rub or gallop Abdomen: Soft, non-tender, bowel sounds active all four quadrants, no masses, no organomegaly Extremities: Extremities normal, atraumatic, no cyanosis or edema Pulses: 2+ and symmetric Skin: Skin color, texture, turgor normal, no rashes or lesions Lymph nodes: Cervical, supraclavicular, and axillary nodes normal Neurologic: Normal Laboratory is reviewed. CBC is completely normal CMP shows a creatinine of 0.9 normal liver tests and an ALP of 94. Calcium is 9.4. Assessment/Plan: Shraddha is doing well at this point in time with no evidence of recurrent breast cancer. She is tolerating Femara 2.5 mg daily. We'll see her in followup in 6 months time with a CBC and CMP. She knows to call if she has any problems or issues in the interim. documented in this encounter Plan of Treatment Not on filedocumented as of this encounter Visit Diagnoses Diagnosis Breast cancer - Primary Malignant neoplasm of breast (female), u nspecified site documented in this encounter Care Teams Property Insurance Claims Examiner Relationship Specialty Start Date End Date Michela Stevenson APRN PCP - General 04/29/10 06/07/16 documented as of this encounter
--- OUTSIDE RECORDS SUMMARY | 2022-05-06 08:22 | XMS_ITS | Encounter Summary ---
:1960 Author Organization [facility] [place] [address] Care Team Providers Name Role Phone Michela Stevenson APRN Primary Care Provider Reason for Referral Consultation (Routine) - Closed Specialty Diagnoses / Procedures Referred By Contact Refer red To Contact Neurology Diagnoses AVM (arteriovenous malformation) Yamilex Romano APRN [facility] 3c [facility] [place] [address] [place] [address] Referral ID Status Reason Start Date Expiration Date Visits V isits Requested Authorized [id number] Closed Consult, 08/05/2011 02/01/2012 1 1 Test & Treat Reason for Visit Reason Comments Radiation Follow-up AVM Encounter Details Date Type Department Care Team Description 08/04/2011 Follow-Up Radiation Oncology at Wilfredo Romano APRN AVM (arteriovenous [address] malformation) (Primary [facility] RADIATION ONCOLOGY Dx) [place], [place] [address] [place] [phone] Social History Tobacco Use Types Packs/Day Years [...] Sign Reading Time Taken Comments Blood Pressure 132/71 08/04/2011 5:10 PM EST Pulse 107 08/04/2011 5:10 PM EST Temperature 36.5 ??C (97.7 ??F) 08/04/2011 5:10 PM EST Respiratory Rate 20 08/04/2011 5:10 PM EST Oxygen Saturation 97% 08/04/2011 5:10 PM EST room ai r Inhaled Oxygen Concentration - - Weight 88.5 kg (195 lb) 08/04/2011 5:10 PM EST Height - - Body Mass Index 34.04 05/15/2011 1:43 PM EST documented in this encounter Progress Notes Yamilex Romano APRN - 08/05/2011 5:07 PM EST Addended by: YAMIELX ROMANO on: 08/05/2011 Modules accepted: Orders Yamilex Romano APRN - 08/04/2011 5:36 PM EST Subjective: Patient ID: Shraddha Chavez is a 51 y.o. female with arteriovenous malformation arising in the left temporal lobe. She was treated with SRS on 08/12/2010. She complained of increased headache and as a result she was scheduled for a repeat brain MRI today. .HPI Starting in early January 2010, Mrs Chavez [...] headaches spurred a brain MRI performed at [facility]. This demonstrated an area of numerous tortuous [...] stereotactic radiosurgery treatment on August 12, 2010. She was seen in follow-up on 11/13/10, at which time MRI appeared stable. She had seen Dr. Ward on November 07, 2010 and was found to have minimal cataracts and deep optic nerve head drusen, potentially contributing to her visual field defect. However, her kiran were noted to have changed and improved since her last VF, though with some unreliability on the test parameters. Ophthalmologic follow-up was planned at one year. Patient has also been in follow-up for her breast cancer, having most recently undergone bone scan on October 16. This demonstrated no evidence of bony metastatic disease. She was seen again in follow up 05/28/2011 And Brain MRI showed no signifcant change in the treated AVM nor adverse sequelae of her SRS treatment. Problem List: 1. Right breast cancer: stage [...] Carpal tunnel release 4. Rotator cuff repair. Current outpatient prescriptions ordered prior to encounter [...] Take 800 mg by mouth as needed. Current facility-administered medications ordered prior to encounter Medication Dose Route Frequency Provider Last Rate Last Dose ??? gadopentetate dimeglumine (MAGNEVIST) injection 20 mL 0.2 mL/kg Intravenous Once PRN Richardson Craig MD Last Dose: 19 mL at 08/04/11 1620 Interim History: Shraddha reported that headaches are daily. Severity is still quite bad, 10 on 10-point scale, with occasionally associated nausea, but no emesis. These last from 20 to 40 minutes, or occasionally longer. She continues with some visual issues, especially at night, with flashing lights making her dizzy. If this happens when driving at night, she finds she must tack puller and wait for these episodes to go away, which may take about 60 seconds or so. These episodes continue to arise maybeabout twice a week. She notes no darkening of her visual kiran. She feels that her balance at timesis unsteady. She denies seizures. She has no tremors. No hearing or speech alterations. Review of Systems Constitutional: Positive for fatigue. Negative for fever, diaphoresis, activity change and appetite change. HENT: Negative for hearing loss and neck stiffness. Eyes: See interim history Respiratory: Negative. Cardiovascular: Negative. Neurological: Positive for light-headedness and headaches. Negative for tremors, seizures, weakness and numbness. See interim history Hematological: Negative. Psychiatric/Behavioral: Negative. Recent Review Flowsheet Data View Complete Flowsheet Oncology Vitals 08/04/2011 Weight 88.451 kg Height - BSA (Calculated - sq m) - BMI (Calculated) - Temp 97.7 Temp src 1 Pulse 107 Heart Rate Source - Resp 20 BP 132/71 BP Location Left arm Patient Position Sitting SpO2 97 Pain Level 8 FACES Pain Rating: Rest - FACES Pain Rating: Activity 8 - hurts whole lot Karnofsky Score 80 Oncology Vitals 08/04/2011 Height (cm) - Weight (kg) - BSA (m2) - Objective: Physical Exam Vitals reviewed. Constitutional: She is oriented to person, place, and time. She appears well- developed and well-nourished. No distress. HENT: Head: Normocephalic and atraumatic. Left Ear: External ear normal. Eyes: Conjunctivae are normal. No scleral icterus. Neck: Normal range of motion. Neck supple. Neurological: She is alert and oriented to person, place, and time. She has normal strength. She is not disoriented. She displays no atrophy and no tremor. No cranial nerve deficit or sensory deficit. She exhibits normal muscle tone. She displays no seizure activity. Coordination and gait normal. Finger to nose normal Romberg positive Skin: Skin is warm and dry. No rash noted. She is not diaphoretic. No erythema. No pallor. Psychiatric: She has a normal mood and affect. Her behavior is normal. Judgment and thought content normal. MR OF THE BRAIN WITH AND WITHOUT CONTRAST AND MRA OF NIKOLAI OF CORRIGAN, 08/04/11: HISTORY: AVM treated with stereotactic radiotherapy in August 2010. Question response or treatment effect. COMPARISON: 07/19/10. TECHNIQUE: 19 cc of Magnevist administered. FINDINGS: MR BRAIN: Flow voids in the medial left temporal lobe are slightly less conspicuous on today's study. The nidus measures approximately 6 x 10 mm on today's study. This compares to 15 x 12 mm on the previous study. The surrounding gliosis, which is mild in nature appears to have slightly progressed. The large draining vein to the basal vein of Angella is again identified. Postcontrast images demonstrate enhancement of the lesion. MRA: The MRA shows less flow-related enhancement within the known left medial temporal lobe AVM. Flow-related enhancement is not demonstrated within the draining vein today, likely indicating slower flow. IMPRESSION IMPRESSION: Interval decreased size of the left temporal lobe AVM with evidence for decreased flow-related enhancement. Assessment and Plan: AVM: MRI indicates that patient has had a good response to SRS treatment. She has persistent headaches that are distressing . We discussed a referral to neurology for further evaluation of her headaches. She is agreeable. documented in this encounter Procedure Notes Provider, Scanning - 09/16/2011 3:23 PM EDTAssociated Order(s): SCAN DOC: LAB documented in this encounter Plan of Treatment Scheduled Referrals Name Type Priority Associated Diagnoses Order S chedule REFERRAL TO Outpatient Referral Routine AVM (arteriovenous Or dered: NEUROLOGY malformation) 08/05/2011 documented as of this encounter Procedures Procedure Name Priority Date/Time Associated Diagnosis Comme nts LAB SCAN 09/16/2011 3:23 PM Results f or this EDT procedure are i n the results section . 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
--- OUTSIDE RECORDS SUMMARY | 2022-05-06 08:22 | XMS_ITS | Encounter Summary ---
:1960 Author Organization [facility] [place] [address] Care Team Providers Name Role Phone Michela Stevenson Jaden FIGUEROA Primary Care Provider Reason for Visit Reason Comments Radiation Follow-up breast cancer Encounter Details Date Type Department Care Team Description 01/14/2012 Follow-Up Radiation Oncology at [facility] denise Brandt APRN Breast CA; [address] [place] [address] [place] [address] RADIATION ONCOLOGY [place], [place] [phone] [place] [address] (Wo rk) Social History Tobacco [...] Sign Reading Time Taken Comments Blood Pressure 120/76 01/14/2012 9:23 AM EDT Pulse 67 01/14/2012 9:23 AM EDT Temperature 36.8 ??C (98.2 ??F) 01/14/2012 9:23 AM EDT Respiratory Rate 18 01/14/2012 9:23 AM EDT Oxygen Saturation 97% 01/14/2012 9:23 AM EDT Inhaled Oxygen Concentration - - Weight 84.4 kg (186 lb) 01/14/2012 9:23 AM EDT Height 160 cm (5' 2.99) 01/14/2012 9:23 AM EDT Body Mass Index 32.96 01/14/2012 9:23 AM EDT documented in this encounter Patient Instructions Patient InstructionsDomonique James APRN - 01/14/2012 9:49 AM EDT Michela for sleep --please picker/puller melatonin --It is safe, non-habit forming natural remedy that may help You with sleep documented in this encounter Progress Notes Domonique James APRN - 01/14/2012 9:33 AM EDT Subjective: Patient ID: Shraddha Chavez is a 51 y.o. female withstage I, pT1C pN0 M0 IDC w/lobular extension, high gr, s/p R partial mastectomy, sentinel lymphadenectomy & B reduction mammoplasty, ERPR+; s/p adjuvant AC x 4 and radiation therapy which was completed on 03/10/2010. She is in clinic today for scheduled follow up. She was also treated with SRS on 08/12/2010 for an arteriovenous malformation arisingin the left temporal lobe. .CHRISTINE Llanes is a delightful Woman who at age 49, on routine screening mammography performed in August of 2009, showed a spiculated mass deep in the central right breast. This led to an ultrasound-guided biopsy on 09/09/2009 which was positive for invasive cancer. Subsequently, she had a breast MRI that showeda small secondary mass which turned out not to be malignant. She underwent a Partial mastectomy on 10/01/2009 on the right and, with Plastic Surgery's assistance, a reduction mammoplasty on the other side. Those have been completed, and she has basically healed, although she had a small problem with a seroma . She was treated with four cycles of dose dense AC completed 12/26/2009 and radiation therapy for a total of 6100 cGy which was completed on 03/10/2010. She is on hormone therapy with femara. Problem List: 1. Right breast cancer: stage [...] through 03/10/2010. Total fractions: 33 2. AVM ---January 2010, headaches, which gradually increased in severity and frequency. These were characterized as fairly short, arising in the area of the left side of the head, and then centering in the area of the nape of the neck and the back of the head without lateralization. ----brain MRI performed at [facility]. This demonstrated an area of numerous tortuous vessels and ectatic vessels in the medial left temporal lobe spanning 2 cm or more in diameter, suggestive of an arteriovenous malformation. No enhancing lesion was seen in the brain. No mass effect or flare-signal abnormality otherwise was noted. ---evaluationby Dr. Harrington on February 19, 2010. Treatment options were discussed. -----03/25/2010: Cerebral angiogram: This documented a 3.3 x 1.6 x 1.6 cm left medial temporal AVM, supplied by P2 branches and enlarged left anterior choroidal artery and small M1 segment MCA branches. The AVM was seen to have both deep and superficial drainage with a stenosis present in the outflow.No intranidal or feeding artery aneurysms were present. SARY testing was also performed. This demonstrated lateralization of speech function to the left side, all the memory function lateralized to theright. ----Followup with Dr. Harrington on April 02, 2010, at which time there was some discussion regarding risks associated with surgery for this particular lesion given the findings of the angiogram and alsothe SARY testing. Surgery was thought perhaps feasible if embolization might be successful in significantly reducing the size of the lesion. ---04/29/2010: evaluated by Dr Gregory Tadeo in radiation oncology in consultation. CT/angiogram andbrain MRI scans, June 19, 2010, demonstrated a left temporal lobe AV malformation with the bulk of the nidus spanning 3 x 2.2 cm in greatest axial dimension. She undewent ----08/12/2010: stereotactic radiosurgery treatment She was seen in follow-up on ---11/13/10, a MRI appeared stable. ---11/07/[address] Ward on November 07, 2010 and was found to have minimal cataracts and deep optic nerve head drusen, potentially contributing to her visual field defect. However, her kiran were noted to have changed and improved since her last VF, though with some unreliability on the test parameters. Ophthalmologic follow-up was planned at one year. ---05/28/2011 Brain MRI -- no signifcant change in the treated AVM nor adverse sequelae of her SRS treatment. 3. Allergies 4. GERD 5. Arthritis Surgical [...] Take 800 mg by mouth as needed. Interim History: Shraddha reported that she is having a great summer. She has been very active at the beach and enjoying friends and family. She reports that the burning she previously had involving her right breast has resolved. She has no lymphedema. She has no ROM difficulty or chest tightness. She denies persistent cough and shortness of breath. She does report difficulty falling and staying asleep. Review of Systems Constitutional: Negative for fever, diaphoresis, activity change, appetite change and fatigue. Very active again HENT: Negative for hearing loss and neck stiffness. Environmental allergies Eyes: See interim history Due to have eye exam No double vision Visual acuity is less Respiratory: Negative. Negative for cough, chest tightness and shortness of breath. Burning of breast has stopped Right breast shrinking Cardiovascular: Negative. Negative for chest pain. Musculoskeletal: Pain left knee--need to see Dr. Altamirano for follow up. Skin: Negative. Significant sun exposure and has not been using sun screen Neurological: Positive for headaches. Negative for tremors, seizures, weakness, light-headedness andnumbness. Headache are intromittent and not severe --feels that this may be due to OA neck Hematological: Negative. Psychiatric/Behavioral: Positive for sleep disturbance. Not sleeping well Recent Review Flowsheet Data View Complete Flowsheet [...] Left Ear: External ear normal. Eyes: Conjunctivae and EOM are normal. No scleral icterus. Neck: Normal range of motion. Neck supple. Cardiovascular: Normal rate, regular rhythm and normal heart sounds. Exam reveals no gallop and no friction rub. No murmur heard. Pulmonary/Chest: Effort normal and breath sounds normal. No respiratory distress. She has no wheezes. She has no rales. She exhibits no tenderness. Abdominal: Soft. Bowel sounds are normal. She exhibits no distension and no mass. There is no hepatomegaly. No tenderness. She has no guarding and no CVA tenderness. Musculoskeletal: Normal range of motion. She exhibits no edema and no tenderness. Lymphadenopathy: She has no cervical adenopathy. She has [...] no dryness, no erythema, no masses, no lymphedema, right breast smaller than left breast Treated site: _X___Right or ____Left, ___X_Breast or Chest wall Telangectasias: __X__None, ____Few; Moderate; Many and confluent Hypopigmentation: _X___None; ____Slight or localized; ____Marked or generalized Hyperpigmentation: __X__None; ____Slight or localized; ____Marked or generalized Fibrosis: None; __X___Increased density along incision; ____Marked increased density + retraction; ____ Very marked Dry skin: __X__None; ____Asymptomatic; symptomatic; Interferes with ADL Cosmetic Result: Excellent; ___x__Good;____ Fair; ____Poor RIGHT BREAST MAMMOGRAPHY ON 12/18/11: INDICATION: Medial [...] 2012 to coordinate Left and Right sides. Assessment and Plan: AVM: Patient has follow up planned with Dr Tadeo in February. Breast cancer: Ms Chavez is doing very well at this time with FARIDEH. She will have a bilateral mammogram in May. She has tolerated the Femara well. She was encouraged to use sun screen given the extensive sun exposure she is having. We will see her again in six months. She will be seen by Dr Lugoin the interim. She is to call if she has any questions or concerns in the interim. Sleep disturbance: Patient will trial melatonin at bedtime. We reviewed bedtime routine to minimize stimulation. documented in this encounter Procedure Notes Provider, Scanning - 02/02/2012 12:23 PM EDTAssociated Order(s): SCAN DOC: CT SCAN documented in this encounter ED Notes Jacky, Mixing Operator - 02/02/2012 12:42 PM EDT documented in this encounter Miscellaneous Notes Discharge Summary - Jacky, Mixing Operator - 02/02/2012 12:42 PM EDT documented in this encounter Plan of Treatment Not on filedocumented as of this encounter Procedures Procedure Name Priority Date/Time Associated Diagnosis Comme nts CT SCAN (SCAN) 02/02/2012 12:23 PM Result s for this EDT procedure are i n the results section . documented in this encounter Results SCAN DOC: CT SCAN (02/02/2012 12:23 PM EDT) Anatomical Region Laterality Modality Other Narrative 02/02/2012 12:42 PM EDT Procedure Note Provider, Scanning - 02/02/2012 12:23 PM EDT Scanning Provider MEDIA MGR SCAN EXT ORDR/RSLT documented in this encounter Visit Diagnoses Diagnosis Breast CA Malignant neoplasm of breast (female), u nspecified site Insomnia Insomnia, unspecified documented in this encounter Care Teams French Cord Binder Relationship Specialty Start Date End Date Michela Stevenson APRN PCP - General 04/29/10 06/07/16 documented as of this encounter
--- OUTSIDE RECORDS SUMMARY | 2022-05-06 08:22 | XMS_ITS | Encounter Summary ---
:1960 Author Organization [facility] [place] [address] Care Team Providers Name Role Phone Michela Stevenson [place] Primary Care Provider Encounter Details Date Type Department Care Team Description 08/04/2011 Hospital Encounter MRI at [facility], [place] [address] Social History Tobacco Use Types Packs/Day [...] - Inhaled Oxygen Concentration - - Weight 98.9 kg (218 lb) 08/04/2011 6:27 AM EST Height - - Body Mass Index 38.05 05/15/2011 1:43 PM EST documented in this encounter Medications at [...] as needed. documented as of this encounter Miscellaneous Notes Miscellaneous - Provider, Scanning - 08/17/2011 10:15 AM EDT documented in this encounter Plan of Treatment Not on filedocumented as of this encounter Procedures Procedure Name Priority Date/Time Associated Diagnosis Comme nts MRI BRAIN WWO Routine 08/04/2011 4:40 PM Results for this CONTRAST (GENERIC) EST procedure are in the results section. documented in this encounter Results MRI BRAIN WITH/WO CONTRAST (08/04/2011 4:40 PM EST) Anatomical Region Laterality Modality Head Magnetic Resonance Specimen (Source) Anatomical Collection Method Collection Time Re ceived Time Location / / Volume Laterality 08/04/2011 4:40 PM EST Impressions 08/05/2011 9:50 AM EST IMPRESSION: Interval decreased size of the left temp oral lobe AVM with evidence for decreased flow-related enhancement. Narrative 08/05/2011 9:50 AM EST MR OF THE BRAIN WITH AND WITHOUT CONTRAST AND MRA OF [place], 08/04/11: HISTORY: ??AVM treated with stereotactic radiotherapy in August 2010. ??Question response or treatment effect. COMPARISON: ??07/19/10. TECHNIQUE: ??19 cc of Magnevist administ ered. FINDINGS: ?? MR BRAIN: ??Flow voids in the medial lef t temporal lobe are slightly less conspicuous on today's study. ??The nidu s measures approximately 6 x 10 mm on today's study. ??This compares to 15 x 1 2 mm on the previous study. ??The surrounding gliosis, which is mild in na ture appears to have slightly progressed. ??The large draining vein to the basal vein of Angella is again identified. ??Postcontrast images demons trate enhancement of the lesion. ?? MRA: ??The MRA shows less flow-related e nhancement within the known left medial temporal lobe AVM. ??Flow-related enhanc ement is not demonstrated within the draining vein today, likely indicating s lower flow. ?? Procedure Note Go Isaacs MD - 08/05/2011Formatti ng of this note might be different from the original. MR OF THE BRAIN WITH AND WITHOUT CONTRAS T AND MRA OF [place], 08/04/11: HISTORY: AVM treated with stereotactic r adiotherapy in August 2010. Question response or treatment effect. COMPARISON: 07/19/10. TECHNIQUE: 19 cc of Magnevist administer ed. FINDINGS: MR BRAIN: Flow voids in the medial left temporal lobe are slightly less conspicuous on today's study. The nidus measures approximately 6 x 10 mm on today's study. This compares to 15 x 12 mm on the previous study. The surrounding gliosis, which is mild in na ture appears to have slightly progressed. The large draining vein to t he basal vein of Angella is again identified. Postcontrast images demonstr ate enhancement of the lesion. MRA: The MRA shows less flow-related enh ancement within the known left medial temporal lobe AVM. Flow-related enhancem ent is not demonstrated within the draining vein today, likely indicating s lower flow. IMPRESSION IMPRESSION: Interval decreased size of the left temp oral lobe AVM with evidence for decreased flow-related enhancement. Gregory Tadeo MD IM MRI ORDERABLES documented in this encounter Visit Diagnoses Not on filedocumented in this encounter Administered Medications Inactive Administered Medications - up to 3 most recent administrations Medication Order MAR Action Action Date Dose Rate Site gadopentetate dimeglumine Given 08/04/2011 4:20 PM EST 19 mLs (MAGNEVIST) injection 20 mL 20 mL (0.2 mL/kg/dose ? 98.9 kg), Intravenous, ONCE PRN, 1 dose, Starting on Wed08/04/11 at 0627, Until Wed08/04/11 at 1641, Per Protocol, Routine documented in this encounter Care Teams Field Installer Relationship Specialty Start Date End Date Michela Stevenson APRN PCP - General 04/29/10 06/07/16 documented as of this encounter
--- OUTSIDE RECORDS SUMMARY | 2022-05-06 08:22 | XMS_ITS | Encounter Summary ---
:1960 Author Organization [facility] [place] [address] Care Team Providers Name Role Phone Michela Stevenson [place] Primary Care Provider Reason for Visit Reason Comments Radiation Follow-up AVRikki Encounter Details Date Type Department Care Team Description 04/14/2012 Follow-Up Radiation Oncology at Wilfredo James APRN Breast cancer (Primary Dx); [address] [place] (arteriovenous malformation) [address] [place] [address] [place] [id number] (Wo rk) Social History Tobacco Use Types [...] Sign Reading Time Taken Comments Blood Pressure 123/84 04/14/2012 2:26 PM EST Pulse 121 04/14/2012 2:26 PM EST Temperature 36.7 ??C (98.1 ??F) 04/14/2012 2:26 PM EST Respiratory Rate 20 04/14/2012 2:26 PM EST Oxygen Saturation 97% 04/14/2012 2:26 PM EST Inhaled Oxygen Concentration - - Weight 94.7 kg (208 lb 12.4 oz) 04/14/2012 2:26 PM EST Height - - Body Mass Index 36.98 03/24/2012 3:55 PM EDT documented in this encounter Progress Notes Domonique James, GROUP TESTER - 04/14/2012 2:59 PM EST Identification Shraddha Chavez is a 52 y.o. 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 Patient returns to clinic for scheduled follow up. HPI Starting in early January 2010, Mrs [...] headaches spurred a brain MRI performed at [facility]. This demonstrated an area of numerous [...] Rotator cuff repair. Allergies Allergen Reactions ??? Gloves, Latex Itching [...] / Fever ??? Sulfa (Sulfonamide Antibiotics) Hives Current outpatient prescriptions ordered prior to encounter Medication Sig Dispense Refill ??? dexlansoprazole (DEXILANT) [...] tablet Take 10 mg by mouth daily. ??? CALCIUM CARBONATE/VITAMIN D3 (CALCIUM WITH VITAMIN D ORAL) Take 1 tablet by mouth daily. 03/24. Interval history: Shraddha is being seen for follow up. When she was last seen she was suffering from severe neuro symptoms and contact was made with neurology for re-evaluation. She was seen 03/24 and had a nerve block which has effectively controlled her symptoms. She is again functioning well with nopersistent nausea, no alteration of smells, no headache, no visual complaints.. She is no longer [...] weakness, numbness and headaches. See interim history occ headache--nothing persistent or severe Hematological: Negative. Does not bruise/bleed easily. Psychiatric/Behavioral: Negative for confusion and sleep disturbance. The patient is not nervous/anxious. Recent Review Flowsheet Data View Complete Flowsheet Oncology Vitals 04/14/2012 Weight 94.7 kg Height - BSA (Calculated - sq m) - BMI (Calculated) - Temp 98.1 Temp src 1 Pulse 121 Heart Rate Source Left;NIBP Resp 20 BP 123/84 BP Location Left arm Patient Position Sitting SpO2 97 Pain Level 0 FACES Pain Rating: Rest - FACES Pain Rating: Activity - Karnofsky Score - Oncology Vitals 04/14/2012 Height (cm) - Weight (kg) - BSA (m2) - Physical Exam Vitals reviewed. Constitutional: She is [...] intervention by neurology injecting cranial nerves. She is scheduled to have a repeat [...] site documented in this encounter Care Teams Cotton Ball Machine Tender Relationship Specialty Start Date End Date Michela Stevenson APRN PCP - General 04/29/10 06/07/16 documented as of this encounter
--- OUTSIDE RECORDS SUMMARY | 2022-05-06 08:22 | XMS_ITS | Encounter Summary ---
:1960 Author Organization [facility] [place] [address] Care Team Providers Name Role Phone Michela Stevenson APRN Primary Care Provider Encounter Details Date Type Department Care Team Description 02/01/2012 Orders Only Radiation Oncology at Domonique James AVM (arteriovenous [facility] SOLID TIRE FINISHER malformation) (Primary [place] [address] [place]) [facility] [place] [phone] Social History Tobacco Use Types Packs/Day Years Used Date Smoking Tobacco: Some Days Cigarettes 0.3 37 L ast attempted to quit: 05/21/2010 Comments: 3 cigarettes a day Alcohol Use Standard Drinks/Week Comments No 0 (1 standard drink = 0.6 oz pure alcoho l) Sex Assigned at Date Recorded Not on file documented as of this encounter Progress Notes Domonique James APRN - 02/01/2012 4:34 PM EDT Subjective: Patient ID: Shraddha Chavez is a 52 y.o. female. HPI Review of Systems Objective: Physical Exam Assessment and Plan: No problem-specific visit notes found for this encounter. Call was made to Michela to review her recent MRI. We discussed that there has been good response to her SRS in regards to her AVM but that her headache may be due to some edema in the area. Dr Gregory Tadeo was consulted and we will start patient on decadron 2 mg twice a day and increase to 4 mg twice A day if she tolerates this for two weeks then slowly taper. We will also start vitamin E 400 mg twice a day with trental 400 mg twice a day to address post radiation effect. 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
--- OUTSIDE RECORDS SUMMARY | 2022-05-06 08:22 | XMS_ITS | Encounter Summary ---
:1960 [place] [address] Care Team Providers Name Role Phone Michela Stevenson [place] Primary Care Provider Encounter Details Date Type Department Care Team Description 01/07/2011 Telephone Radiation Oncology at [facility], Gregory Doran MD [facility] [address] [place] [address] [phone] (Wo rk) Social History Tobacco Use Types Packs/Day Years Used Date Smoking Tobacco: Former Cigarettes 1 37 Quit : 05/21/2010 Alcohol Use Standard Drinks/Week Comments No 0 (1 standard drink = 0.6 oz pure alcoho l) Sex Assigned at Date Recorded Not on file documented as of this encounter Miscellaneous Notes Telephone Encounter - Rossana Stanley RN - 01/07/2011 8:53 AM EDT I spoke with this morning after receiving a message indicating she had called on Wednesday with symptoms. According to Ms. hCavez, last week Wednesday she started experiencing pressure in her head which she claims radiated down to her neck. The pressure she describes has caused her tremendous pain and has made her feel like passing out regardless of her position. She has also experienced some nausea and excessive sweating. She denies any loss of balance, slurred speech or vomiting at this time. documented in this encounter Plan of Treatment Not on filedocumented as of this encounter Visit Diagnoses Not on filedocumented in this encounter Care Teams Technology Coordinator Relationship Specialty Start Date End Date Michela Stevenson APRN PCP - General 04/29/10 06/07/16 documented as of this encounter
--- OUTSIDE RECORDS SUMMARY | 2022-05-06 08:22 | XMS_ITS | Encounter Summary ---
:1960 Author Organization [facility] Address [address] [facility] [address] [place] [address] Care Team Providers Name Role Phone Michela Stevenson Jaden FIGUEROA Primary Care Provider Reason for Visit Reason Comments Radiation Follow-up Encounter Details Date Type Department Care Team Description 01/22/2011 Follow-Up Radiation Oncology at [place], Wilfredo Brandt APRN AVM (arteriovenous [address] ignacia) [address] [place] [address] [place] [address] [id number] (Wo rk) Social History Tobacco Use Types Packs/Day Years Used Date Smoking Tobacco: Former Cigarettes 1 37 Quit : 05/21/2010 Alcohol Use Standard Drinks/Week Comments No 0 (1 standard drink = 0.6 oz pure alcoho l) Sex Assigned at Date Recorded Not on file documented as of this encounter Last Filed Vital Signs Vital Sign Reading Time Taken Comments Blood Pressure 118/82 01/22/2011 3:15 PM EDT Pulse 81 01/22/2011 3:15 PM EDT Temperature 36.6 ??C (97.9 ??F) 01/22/2011 3:15 PM EDT Respiratory Rate 16 01/22/2011 3:15 PM EDT Oxygen Saturation 98% 01/22/2011 3:15 PM EDT Inhaled Oxygen Concentration - - Weight 96 kg (211 lb 10.3 oz) 01/22/2011 3:15 PM EDT Height 161.2 cm (5' 3.47) 01/22/2011 3:15 PM EDT Body Mass Index 36.94 01/22/2011 3:15 PM EDT documented in this encounter Progress Notes ErikaGeovannyDomonique Rikki, ECONOMETRICS PROFESSOR - 01/22/2011 4:17 PM EDT Subjective: Patient ID: Shraddha Chavez is a 50 y.o. female who was treated with radiation therapy for right breast cancer. She is in clinic today for scheduled follow up. HPI At age 49 Shraddha had a routine screening mammography performed in August of 2009. This showed a spiculated mass deep in the central right breast. This led to an ultrasound-guided biopsy on 09/09/2009 which was positive for invasive cancer. Subsequently, she had a breast MRI that showed a small secondary mass which turned out not to be malignant. [facility] with [facility]'s assistance, a reduction [...] She is on hormone therapy with femara. On 08/15/2010 Ms Chavez was treated with SRS to her left temporal lobe. She was diagnosed with an AVMafter experiencing severe headaches as per MRI done 06/19/2010. Radiation therapy summary: Site Technique Dose/ Fraction Fraction Number MeV p e TOTAL DOSE Treatment Dates R breast P 180 25 P 4500 01-22 to 02-26-10 R cavity boost P 200 8 p 1600 02-27 to 03-10-10 FINAL DOSE TO PRIMARY SITE: 6100 cGy in 33 FRACTIONS. Patient Active Problem List Diagnoses Code ??? Breast ca 174.9M ??? Blurry vision 368.8BC ??? AVM (arteriovenous malformation) 747.60AG Interim History:Ms Chavez reports that she is doing well at this time. She reports only mild right breast tenderness and that her previous rib pain has not progressed and at this time is mild. She has no nipple discharge, no masses, no lymphedema, no cough, no shortness of breath. She has had intermittent blurry vision and headaches are every day but not as bad. Her mood overall is positive. Current outpatient prescriptions ordered prior to encounter Medication Sig Dispense Refill ??? VITAMIN B COMPLEX ORAL Take 1 tablet by mouth daily. ??? loratadine (CLARITIN) 10 mg tablet Take 10 mg by mouth daily as needed. ??? omeprazole (PRILOSEC) 20 mg capsule Take 20 mg by mouth 2 times daily. ??? letrozole (FEMARA) 2.5 mg tablet 2.5 MG = 1 Tablet(s), PO, Once daily ??? CALCIUM CARBONATE/VITAMIN D3 (CALCIUM WITH VITAMIN D ORAL) Take 1 tablet by mouth daily. ??? ibuprofen (ADVIL) 200 mg tablet Take 800 mg by mouth as needed. Review of Systems Constitutional: Negative for fever, chills, diaphoresis, activity change, appetite change, fatigue and unexpected weight change. Eyes: Negative for pain, discharge, redness and itching. Patient reports on and off blurriness of vision Respiratory: Negative for cough, shortness of breath and wheezing. Cardiovascular: Negative for chest pain and leg swelling. Gastrointestinal: Negative. Genitourinary: Negative. Musculoskeletal: Negative. No lymphedema Skin: Negative. Negative for color change, pallor, rash and wound. Neurological: Positive for headaches. Negative for tremors, facial asymmetry, speech difficulty, weakness, light-headedness and numbness. Hematological: Negative. Psychiatric/Behavioral: Negative. Filed Vitals: 01/22/11 1515 BP: 118/82 Pulse: 81 Temp: 36.6 ??C (97.9 ??F) TempSrc: Oral Resp: 16 Height: 161.2 cm (5' 3.47) Weight: 96 kg (211 lb 10.3 oz) SpO2: 98% Objective: Physical Exam Vitals reviewed. Constitutional: She is oriented to person, place, and time. She appears well- developed and well-nourished. No distress. HENT: Head: Normocephalic and atraumatic. Eyes: Conjunctivae and EOM are normal. Pupils are equal, round, and reactive to light. Right eye exhibits no discharge. Left eye exhibits no discharge. No scleral icterus. Neck: Neck supple. Cardiovascular: Normal rate and regular rhythm. Exam reveals no gallop and no friction rub. No murmur heard. Pulmonary/Chest: Effort normal and breath sounds normal. No respiratory distress. She has no wheezes. She has no rales. She exhibits no tenderness. Abdominal: Soft. Bowel sounds are normal. She exhibits no distension and no mass. No tenderness. Shehas no rebound and no guarding. Musculoskeletal: She exhibits no edema and no tenderness. Lymphadenopathy: Head (right side): No submental, no submandibular, no tonsillar, no preauricular, no posterior auricular and no occipital adenopathy present. Head (left side): No submental, no submandibular, no tonsillar, no preauricular, no posterior auricular and no occipital adenopathy present. She has no cervical adenopathy. Right cervical: No superficial cervical, no deep cervical and no posterior cervical adenopathy present. Left cervical: No superficial cervical, no deep cervical and no posterior cervical adenopathy present. She has no axillary adenopathy. Right axillary: No pectoral and no lateral adenopathy present. Left axillary: No pectoral and no lateral adenopathy present. Neurological: She is alert and oriented to person, place, and time. No cranial nerve deficit. She exhibits normal muscle tone. Coordination normal. Skin: Skin is warm and dry. No rash noted. She is not diaphoretic. No erythema. No pallor. Psychiatric: She has a normal mood and affect. Her behavior is normal. Judgment and thought content normal. Breast__X__ no nipple discharge, no dryness, no erythema either breast Treated site: __X__Right or ____Left, __X__Breast or Chest wall Telangectasias: __X__None, ____Few; Moderate; Many and confluent Hypopigmentation: ___X_None; ____Slight or localized; ____Marked or generalized Hyperpigmentation: ___X_None; ____Slight or localized; ____Marked or generalized Fibrosis: None; __X___Increased density; ____Marked increased density + retraction; ____ Very marked Dry skin: __X__None; ____Asymptomatic; symptomatic; Interferes with ADL Cosmetic Result: Excellent; __X___Good;____ Fair; ____Poor Assessment and Plan: Right breast cancer: Ms Chavez is doing well at this time with FARIDEH. She is scheduled to have her next mammogram in April. She continues follow up with Dr Tadeo and neurology post treatment of herAVM. We will see her again in six months for clinical evaluation. documented in this encounter Procedure Notes Provider, Scanning - 05/15/2011 12:37 PM ESTAssociated Order(s): SCAN DOC: LAB documented in this encounter Plan of Treatment Not on filedocumented as of this encounter Procedures Procedure Name Priority Date/Time Associated Diagnosis Comme nts LAB SCAN 05/15/2011 12:37 PM Results for this EST procedure are i n the results section . 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
--- OUTSIDE RECORDS SUMMARY | 2022-05-06 08:22 | XMS_ITS | Encounter Summary ---
:1960 Author Organization [facility] [place] [address] Care Team Providers Name Role Phone Michela Stevenson Jaden FIGUEROA Primary Care Provider Encounter Details Date Type Department Care Team Description 05/06/2011 [facility] Rikki Dx) [facility] [place] [address] GENERAL SURGERY [phone] [place], [place] [address] Social History Tobacco Use Types Packs/Day Years Used Date Smoking Tobacco: Former Cigarettes 1 37 Quit : 05/21/2010 Alcohol Use Standard Drinks/Week Comments No 0 (1 standard drink = 0.6 oz pure alcoho l) Sex Assigned at Date Recorded Not on file documented as of this encounter Plan of Treatment Not on filedocumented as of this encounter Results Mammo breast US unilateral bilateral (05/12/2011 3:40 PM EST) Anatomical Region Laterality Modality Breast N/A Mammography Specimen (Source) Anatomical Collection Method Collection Time Re ceived Time Location / / Volume Laterality 05/12/2011 3:40 PM EST Narrative 05/13/2011 11:37 AM EST [...] breast co ncerns, continue with routine screening. Rachele Barnhart MD IMG MAMMO ORDERABLES documented in this encounter Visit Diagnoses Diagnosis Breast cancer - Primary Malignant neoplasm of breast (female), u nspecified site Breast cancer Malignant neoplasm of breast (female), u nspecified site documented in this encounter Care Teams Television Schedule Coordinator Relationship Specialty Start Date End Date Michela Stevenson APRN PCP - General 04/29/10 06/07/16 documented as of this encounter
--- OUTSIDE RECORDS SUMMARY | 2022-05-06 08:22 | XMS_ITS | Encounter Summary ---
:1960 Author Organization [facility] [place] [address] Care Team Providers Name Role Phone Michela Stevenson CAROLINA Primary Care Provider Encounter Details Date Type Department Care Team Description 01/29/2012 Hospital Encounter MRI at [facility], DR YOBANI CHOWDARY [facility] [place] [address] malformation) [place] [id number] Social History Tobacco Use Types Packs/Day Years [...] - - Weight 98.9 kg (218 lb) 01/29/2012 6:25 AM EDT Height - - Body Mass Index 38.63 01/14/2012 9:23 AM EDT documented in this encounter Medications at Time of Discharge Medication Sig Dispensed Refills Start Date End Date prochlorperazine (COMPAZINE) Take 10 mg by 0 01/0608/19/2018 10 mg Tablet mouth. letrozole (FEMARA) 2.5 mg Take 1 tablet by 90 tablet 2 02/201102/26/2012 tabletIndications: Breast mouth daily. cancer VITAMIN B COMPLEX Take 1 tablet by 0 11/27/2010 0 02/14/2013 ORALIndications: Breast CA mouth daily. CALCIUM CARBONATE/VITAMIN D3 Take 1 tablet by 0 0 11/27/2010 05/05/2012 (CALCIUM WITH VITAMIN D mouth daily. ORAL)Indications: Breast CA loratadine (CLARITIN) 10 mg Take 10 mg by 0 11/0706/06/2012 tablet mouth daily. omeprazole (PRILOSEC) 20 mg Take 20 mg by 0 11/0703/17/2012 capsule mouth 2 times daily. ibuprofen (ADVIL) 200 mg Take 800 mg by 0 011 03/24/2012 tablet mouth as needed. documented as of this encounter Miscellaneous Notes Miscellaneous - Provider, Scanning - 02/04/2012 11:10 AM EDT documented in this encounter Plan of Treatment Not on filedocumented as of this encounter Procedures Procedure Name Priority Date/Time Associated Diagnosis Comme nts MRI BRAIN WWO Routine 01/29/2012 4:20 PM AVM (arteriovenous Re sults for this [...] Date Dose Rate Site gadopentetate dimeglumine Given 01/29/2012 4:26 PM EDT 18 mLs (MAGNEVIST) injection 20 mL 20 mL (0.2 mL/kg/dose ? 98.9 kg), Intravenous, ONCE PRN, 1 dose, Starting on Wed01/29/12 at 0626, Until Wed01/29/12 at 1626, Per Protocol, Routine documented in this encounter Care Teams Fitter Hand Relationship Specialty Start Date End Date Michela Stevenson APRN PCP - General 04/29/10 06/07/16 documented as of this encounter
--- OUTSIDE RECORDS SUMMARY | 2022-05-06 08:22 | XMS_ITS | Encounter Summary ---
:1960 [place] [address] Care Team Providers Name Role Phone Michela Stevenson Jaden FIGUEROA Primary Care Provider Encounter Details Date Type Department Care Team Description 11/13/2010 Hospital Encounter MRI at [facility] AVM ([facility] malformat ion) [place] [address] Social History Tobacco Use Types Packs/Day Years Used Date Smoking Tobacco: Former Cigarettes 1 37 Quit : 05/21/2010 Alcohol Use Standard Drinks/Week Comments No 0 (1 standard drink = 0.6 oz pure alcoho l) Sex Assigned at Date Recorded Not on file documented as of this encounter Medications at Time of Discharge Medication Sig Dispensed Refills Start Date End Date loratadine (CLARITIN) 10 Take 10 mg by mouth 0 06/06/2012 mg tablet daily. omeprazole (PRILOSEC) 20 Take 20 mg by mouth 0 03/17/2012 mg capsule 2 times daily. ibuprofen (ADVIL) 200 mg Take 800 mg by mouth 0 0 11/07/2010 03/24/2012 tablet as needed. letrozole (FEMARA) 2.5 mg 2.5 MG = 1 0 08/12/2010 05/11/2011 tablet Tablet(s), PO, Once daily documented as of this encounter Plan of Treatment Not on filedocumented as of this encounter Procedures Procedure Name Priority Date/Time Associated Diagnosis Comme nts MRI BRAIN WO Routine 11/13/2010 11:40 AM Congenital anomaly Re sults for this CONTRAST EDT of the peripheral procedure are in vascular system, the results unspecified site section. 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 Narrative 11/14/2010 4:44 PM EDT MRI OF THE BRAIN WITHOUT CONTRAST: INDICATION: ??Arteriovenous malformation , status post radiosurgery, evaluate response to treatment. ?? TECHNIQUE: ??Noncontrast MRI and MRA of the brain was performed. ?? FINDINGS: ??The study demonstrates resid ual nidus measuring up to 16 mm or so in greatest dimension in the anterior left temporal lobe. There is an enlarged draining vein arising from the lesion ex tending into the perimesencephalic cistern. In addition, there is some flow -related enhancement of the lesion on the MRA sequence. ?? Overall, the lesion does appear slightly smaller than on the MR done 06/19/10. ?? Procedure Note Richardson Moya MD - 11/14/2010Forma tting of this note might be different from the original. MRI OF THE BRAIN WITHOUT CONTRAST: INDICATION: Arteriovenous malformation, status post radiosurgery, evaluate response to treatment. TECHNIQUE: Noncontrast MRI and MRA of th e brain was performed. FINDINGS: The study demonstrates residua l nidus measuring up to 16 mm or so in greatest dimension in the anterior left temporal lobe. There is an enlarged draining vein arising from the lesion ex tending into the perimesencephalic cistern. In addition, there is some flow -related enhancement of the lesion on the MRA sequence. Overall, the lesion does appear slightly smaller than on the MR done 06/19/10. 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
--- OUTSIDE RECORDS SUMMARY | 2022-05-06 08:22 | XMS_ITS | Encounter Summary ---
:1960 Author Organization [facility] [place] [address] Care Team Providers Name Role Phone Michela Stevenson CAROLINA Primary Care Provider Encounter Details Date Type Department Care Team Description 03/25/2012 Telephone Neurology at [facility] Scot Garcia MD [facility] [place] [address] NEUROLOGY DEPT [phone] [place], [place] [address] (Wo rk) Social History Tobacco [...] Notes Telephone Encounter - Scot Garcia - 03/25/2012 2:21 PM EDT Called patient to f/up on ONB effects. Patient is now headache free and happy about that. Asked to start nortriptiline at night. Cancelled indomethacin. documented in this encounter Plan of Treatment Not on filedocumented as of this encounter Visit Diagnoses Not on filedocumented in this encounter Care Teams Executive Candidate Developer Relationship Specialty Start Date End Date Michela Stevenson APRN PCP - General 04/29/10 06/07/16 documented as of this encounter
--- OUTSIDE RECORDS SUMMARY | 2022-05-06 08:22 | XMS_ITS | Encounter Summary ---
:1960 Author Organization [facility] [place] [address] Care Team Providers Name Role Phone Stevenson, Michela Stanley APRN Primary Care Provider Encounter Details Date Type Department Care Team Description 2012 Telephone Radiation Oncology at Domonique Pratt APRN [address] [place] [address] [place], [place] [address] (Wo rk) Social History Tobacco Use Types [...] Telephone Encounter - Domonique James APRN - 2012 3:19 PM EDT Call to patient to follow up on issue of massive headache 01/27/2012). Patient was seen in ER at [facility] and had a repeat CT of the head which was negative for bleed. She was treated for migraine and had a good response. She will be coming to [facility] on 01/28 for her scheduled MRI. documented in this encounter Plan of Treatment Not on filedocumented as of this encounter Visit Diagnoses Not on filedocumented in this encounter Care Teams Cavalry Officer Relationship Specialty Start Date End Date Michela Stevenson APRN PCP - General 04/29/10 06/07/16 documented as of this encounter
--- OUTSIDE RECORDS SUMMARY | 2022-05-06 08:22 | XMS_ITS | Encounter Summary ---
:1960 Author Organization [facility] [place] [address] Care Team Providers Name Role Phone Michela Stevenson CAROL[place] Primary Care Provider Encounter Details Date Type Department Care Team Description 05/12/2011 Hospital Encounter Mammography at [facility] [place] [address] Social History Tobacco Use Types Packs/Day [...] Diagnosis Comme nts MAMMO BREAST US Routine 05/12/2011 3:40 PM Breast cancer Resu lts for this LIMITED EST procedure are i n the results [...] site documented in this encounter Care Teams Waterproof Bag Cutting Machine Operator Relationship Specialty Start Date End Date Michela Stevenson APRN PCP - General 04/29/10 06/07/16 documented as of this encounter
--- OUTSIDE RECORDS SUMMARY | 2022-05-06 08:22 | XMS_ITS | Encounter Summary ---
:1960 Author Organization [facility] [place] [address] Care Team Providers Name Role Phone Michela Stevenson CAROL[place] Primary Care Provider Reason for Visit Reason Onset Date Comments Other 03/08/2012 Encounter Details Date Type Department Care Team Description 03/08/2012 Telephone Neurology at [facility] Scot Garcia MD Other [facility] [place] [address] NEUROLOGY DEPT [phone] [place], [place] [address] (Wo rk) Social History Tobacco [...] this encounter Miscellaneous Notes Telephone Encounter - Chiqui Pena - 03/08/2012 8:26 AM EDT Patient would like to know why she was put on these medication by Dr. Garcia. Patient ended up in theemergency room last night due to low blood pressure and the patient states she was told it's becauseshe was put on these two medications below. Please call patient back to discuss further. verapamil (CALAN) 40 mg tablet hydrOXYzine (ATARAX) 25 mg tablet documented in this encounter Plan of Treatment Not on filedocumented as of this encounter Visit Diagnoses Not on filedocumented in this encounter Care Teams Electroencephalograph Technologist Relationship Specialty Start Date End Date Michela Stevenson APRN PCP - General 04/29/10 06/07/16 documented as of this encounter
--- OUTSIDE RECORDS SUMMARY | 2022-05-06 08:22 | XMS_ITS | Encounter Summary ---
:1960 [place] [address] Care Team Providers Name Role Phone Micheal Stevenson Jaden FIGUEROA Primary Care Provider Encounter Details Date Type Department Care Team Description 05/28/2011 Hospital Encounter MRI at [facility] [place] ([facility] malformat ion) [place] [address] Social History Tobacco Use Types Packs/Day [...] CALCIUM CARBONATE/VITAMIN Take 1 tablet by 0 /08/201005/05/2012 D3 (CALCIUM WITH VITAMIN mouth daily. D [...] Miscellaneous Notes Miscellaneous - Provider, Scanning - 06/10/2011 9:33 AM EST documented in this encounter Plan of Treatment Not on filedocumented as of this encounter Procedures Procedure Name Priority Date/Time Associated Diagnosis Comme nts MRI BRAIN WO Routine 05/28/2011 1:23 PM Congenital anomaly Res ults for this CONTRAST EST of the peripheral procedure are in vascular system, the results unspecified site section. documented in this encounter Results MRI BRAIN WO CONTRAST (05/28/2011 1:23 PM EST) Anatomical Region Laterality Modality Head Magnetic Resonance Specimen (Source) Anatomical Collection Method Collection Time Re ceived Time Location / / Volume Laterality 05/28/2011 1:23 PM EST Impressions 05/28/2011 2:51 PM EST IMPRESSION: The known left temporal lobe AVM is not significantly changed in appearance. Narrative 05/28/2011 2:51 PM EST MRI OF THE BRAIN WITHOUT CONTRAST AND MR A DATED 05/28/11: PRIOR: 11/13/10. HISTORY: ??History of AVM. ??Status post stereotactic radiation surgery. 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 ??The nidu s measures approximately 1.5 x 1.2 cm, which is not significantly changed in si ze compared to the previous study. ??A small amount of gliosis surrounds the AV M. On the MRA the large left-sided draining vein is identified. Procedure Note Go Isaacs MD - 05/28/2011Formatti ng of this note might be different from the original. MRI OF THE BRAIN WITHOUT CONTRAST AND MR A DATED 05/28/11: PRIOR: 11/13/10. HISTORY: History of AVM. Status post valentina reotactic radiation surgery. 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 The nidus measures approximately 1.5 x 1.2 cm, which is not significantly changed in si ze compared to the previous study. A small amount of gliosis surrounds the AV M. On the MRA the large left-sided draining vein is identified. IMPRESSION IMPRESSION: The known left temporal lobe AVM is not significantly changed in appearance. 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
--- OUTSIDE RECORDS SUMMARY | 2022-05-06 08:22 | XMS_ITS | Encounter Summary ---
:1960 [place] [address] Care Team Providers Name Role Phone GrahamLuzmaurice Stanley APRN Primary Care Provider Reason for Visit Reason Onset Date Comments Other 01/26/2012 fu from ER visit on 01/21 Encounter Details Date Type Department Care Team Description 01/26/2012 Telephone Radiation Oncology at [facility] Other (fu from ER Malika Church RN visit on 01/21 ) [place] [phone] Social History Tobacco Use Types Packs/Day Years Used Date Smoking Tobacco: Some Days Cigarettes 0.3 37 L ast attempted to quit: 05/21/2010 Comments: 3 cigarettes a day Alcohol Use Standard Drinks/Week Comments No 0 (1 standard drink = 0.6 oz pure alcoho l) Sex Assigned at Date Recorded Not on file documented as of this encounter Miscellaneous Notes Telephone Encounter - Nelly [facility] RN - 01/26/2012 8:28 AM EDT Caller: commercial energy auditor Returned t/c to Michela at [phone] (at friend's house in [place], [place]) Reason for call: Since at the ER on 01/21 for head pressure. Continues to experience head pressure, not real headache.Has MRI and fu with Dr. Carlyle schuster for 02/16. From ER Note 01/21 Assessment and Plan 51 F with h/o AVM s/p stereotactic radiosurgery, Breast cancer s/p partial resection, chemo/ radiotherapy on hormonal treatment admitted for evaluation for headache, nausea and vomiting. Neurological examination non focal. CT head shows evidence of calcification of AVM. Patient was advised admision. Patient Impression: Headache, nausea, vomiting. H/o AVM, breast cancer. Etiology: ? Migraine type ? Secondary to radiation damage of brain. To rule out changes in AVM/ lesions secondary to breast cancer. Workup: Needs f/up MRI brain which has been scheduled already Recommendation: Symptomatic measures for headache. Ibuproofen/ Promethazine. Will arrange f/up in neurology clinic. May discharge home Reviewed with BIRGIT Kiran A/P Forward to CRIMINAL [employer]ICE SOCIAL WORKER documented in this encounter Plan of Treatment Not on filedocumented as of this encounter Visit Diagnoses Not on filedocumented in this encounter Care Teams Sensory Scientist Relationship Specialty Start Date End Date Michela Stevenson APRN PCP - General 04/29/10 06/07/16 documented as of this encounter
--- OUTSIDE RECORDS SUMMARY | 2022-05-06 08:22 | XMS_ITS | Encounter Summary ---
:1960 Author Organization [facility] [place] [address] Care Team Providers Name Role Phone Graham Michela Jaden FIGUEROA Primary Care Provider Reason for Visit Reason Comments Radiation Follow-up breast cancer Encounter Details Date Type Department Care Team Description 07/16/2011 Follow-Up Radiation Oncology at Wilfredo James APRN Breast ca (Primary Dx) [address] [place] [address] [id number] (Wo rk) Social History Tobacco Use Types Packs/Day Years Used Date Smoking Tobacco: Former Cigarettes 1 37 Quit : 05/21/2010 Alcohol Use Standard Drinks/Week Comments No 0 (1 standard drink = 0.6 oz pure alcoho l) Sex Assigned at Date Recorded Not on file documented as of this encounter Last Filed Vital Signs Vital Sign Reading Time Taken Comments Blood Pressure 118/73 07/16/2011 9:57 AM EST Pulse 63 07/16/2011 9:57 AM EST Temperature 36.6 ??C (97.9 ??F) 07/16/2011 9:57 AM EST Respiratory Rate 18 07/16/2011 9:57 AM EST Oxygen Saturation 99% 07/16/2011 9:57 AM EST Inhaled Oxygen Concentration - - Weight 91 kg (200 lb 9.9 oz) 07/16/2011 9:57 AM EST Height - - Body Mass Index 35.02 05/15/2011 1:43 PM EST documented in this encounter Progress Notes Domonique James, SUPERVISOR [employer] - 07/16/2011 10:40 AM EST Subjective: Patient ID: Shraddha Chavez is a 51 y.o. female stage I, pT1C pN0 M0 IDC w/lobular extension, high gr, s/p R partial mastectomy, sentinel lymphadenectomy & B reduction mammoplasty, ERPR+; s/p adjuvant AC x 4 and radiation therapy which was completed on 03/10/2010. She is in clinic today for scheduled follow up. CHRISTINE Llanes is a delightful Woman who at [...] although she had a small problem with aseroma . She was treated with four cycles of dose dense AC completed 12/26/2009 and radiation therapyfor a total of 6100 cGy which was [...] through 03/10/2010. Total fractions: 33 2. AVM 3. Allergies 4. GERD 5. Arthritis Surgical [...] 800 mg by mouth as needed. Interim History; Shraddha reports that she is doing well at this time. She had a mammogram 05/12/2011 which was negative. She indicates that she is tolerating the Femara well . She denies arthralgias due to the AI. She denies problems with her breast. She indicates that she has noticed some shrinking of her right breast a nd wonders if this may be related to XRT. She has no persistent cough, no chest pain or tightness, no range of motion problems with her shoulder, no lymphedema. She reports that her headaches seem to be increasing. She did have a brain MRI on 05/28/2011 and Makenzie Tadeo. The MRI was stable. Patient has multiple allergies and wondered if there is an family centered specialist that could work with her regarding this as suggested by her PCP. She is very involved with her grandchildren and this has been a source of great eloisa for patient. Review of Systems Constitutional: Negative for fever, chills, activity change, appetite change, fatigue and unexpectedweight change. Eyes: Negative. Respiratory: Negative for cough, chest tightness, shortness of breath and wheezing. Cardiovascular: Negative. Negative for chest pain and leg swelling. Gastrointestinal: Negative. Genitourinary: Negative. Musculoskeletal: Negative for back pain, arthralgias and gait problem. Skin: Negative. Neurological: Positive for headaches. Negative for dizziness, tremors and weakness. Hematological: Negative. Psychiatric/Behavioral: Negative. Recent Review Flowsheet Data View Complete Flowsheet Oncology Vitals 07/16/2011 Weight 91 kg Height - BSA (Calculated - sq m) - BMI (Calculated) - Temp 97.9 Temp src 1 Pulse 63 Heart Rate Source NIBP;Left Resp 18 BP 118/73 BP Location Left arm Patient Position Sitting SpO2 99 Pain Level 0 FACES Pain Rating: Rest - FACES Pain Rating: Activity - Karnofsky Score - Oncology Vitals 07/16/2011 Height (cm) - Weight (kg) - BSA (m2) - Objective: Physical Exam Vitals reviewed. Constitutional: She is oriented to person, place, and time. She appears well- developed and well-nourished. No distress. HENT: Head: Normocephalic and atraumatic. Eyes: Conjunctivae are normal. No scleral icterus. [...] Shehas no rebound and no guarding. Musculoskeletal: Normal range of motion. She exhibits [...] no dryness, no erythema, no masses, no edema either breast. Treated site: __X__Right or ____Left, ___X_Breast or Chest wall Telangectasias: __X__None, ____Few; Moderate; Many and confluent Hypopigmentation: __X__None; ____Slight or localized; ____Marked or generalized Hyperpigmentation: __X__None; ____Slight or localized; ____Marked or generalized Fibrosis: ___X__None; Increased density; ____Marked increased density + retraction; ____ Very marked Dry skin: __X__None; ____Asymptomatic; symptomatic; Interferes with ADL Cosmetic Result: Excellent; ___X__Good;____ Fair; ____Poor 05/12/2011 BILATERAL MAMMOGRAM AND RIGHT BREAST ULTRASOUND ON 05/12/11: CLINICAL INDICATION: Patient palpated area of concern. Patient has had prior wide local excision andreduction mammoplasty on this breast 09/14. TECHNIQUE: Bilateral CC and MLO views with additional 90-degree ML view obtained with direct digitalcapture and BB marking the area of palpable concern in the Right breast laterally at 0900, 2cm from the nipple. This exam was evaluated by CAD version 8.3.17. FINDINGS: Bilateral mammogram shows distortion from the prior reduction mammoplasties in both breasts and the wide local excision in the inferior aspect of the Right breast. No finding worrisome for malignancy is seen in either breast. In the area of palpable concern there is a minimal amount of residual stable fibroglandular tissue. Focused ultrasound to the indicated area of concern shows no sonographic abnormality. On the mammogram adjacent to the BB there is a small area of fat necrosis on the CC view with central lucency. This may be what the patient is feeling along with the residual fibroglandular tissue in this area. CONCLUSION: NEGATIVE bilateral mammogram with diagnostic imaging of the Right breast and Right breast ultrasound(BIRADS Category 1). Clinical follow-up advised. Otherwise, assuming no further breast concerns, continue with routine screening Assessment and Plan: Breast cancer: Ms Chavez is doing well at this time with FARIDEH. We discussed that XRT can cause some shrinking of breast. She had a negative mammogram in May. She continues with Femara which she is tolerating well. We will see her again in six months for clinical evaluation. She is to call if she has any questionsor concerns in the interim. documented in this encounter Plan of Treatment Not on filedocumented as of this encounter Visit Diagnoses Diagnosis Breast CA - Primary Malignant neoplasm of breast (female), u nspecified site documented in this encounter Care Teams Reactor Fueling Supervisor Relationship Specialty Start Date End Date Michela Stevenson APRN PCP - General 04/29/10 06/07/16 documented as of this encounter
--- OUTSIDE RECORDS SUMMARY | 2022-05-06 08:22 | XMS_ITS | Encounter Summary ---
:1960 Author Organization [facility] [place] [address] Care Team Providers Name Role Phone Michela Stevenson [place] Primary Care Provider Reason for Visit Reason Comments Breast Cancer Encounter Details Date Type Department Care Team Description 11/27/2010 Follow-Up Hematology Oncology at [facility], Bang Snyder MD Breast ca (Primary Dx) [address] [id number] [phone] Social History Tobacco Use Types Packs/Day Years Used Date Smoking Tobacco: Former Cigarettes 1 37 Quit : 05/21/2010 Alcohol Use Standard Drinks/Week Comments No 0 (1 standard drink = 0.6 oz pure alcoho l) Sex Assigned at Date Recorded Not on file documented as of this encounter Last Filed Vital Signs Vital Sign Reading Time Taken Comments Blood Pressure 119/85 11/27/2010 3:17 PM EDT Pulse 94 11/27/2010 3:17 PM EDT Temperature 36.8 ??C (98.2 ??F) 11/27/2010 3:17 PM EDT Respiratory Rate 16 11/27/2010 3:17 PM EDT Oxygen Saturation 96% 11/27/2010 3:17 PM EDT Inhaled Oxygen Concentration - - Weight 99 kg (218 lb 4.1 oz) 11/27/2010 3:17 PM EDT Height 161.2 cm (5' 3.47) 11/27/2010 3:17 PM EDT Body Mass Index 38.1 11/27/2010 3:17 PM EDT documented in this encounter Progress Notes Schuyler Lugo MD - 11/27/2010 4:16 PM EDT DIAGNOSIS: 1. 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 ER positive, HER-2/viktoria negative, with one lymph node microscopically positive, other two negative. 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 SUBJECTIVE: Shraddha comes in today for followup. Since I last saw her she has had her radiation treatments for her temporal AV malformation. She feels she is about the same symptomatically as she was before the procedure. She is seeing Dr. Tadeo about that. Additionally she was seen in followup by radiation oncology and noting right-sided chest wall pain and rib pain and had a bone scan ordered. I am happy to tell her that was normal. She also was wearing about osteoporosis and has had a scan for that and has no evidence for osteoporosis whatsoever. Other than the right-sided rib pain she really does no particular complaints today. Review of Systems Constitutional: Negative for fever, [...] supraclavicular, and axillary nodes normal Neurologic: Normal EXAMINATION: WHOLE BODY BONE SCAN: 10/16/2010. CLINICAL HISTORY: Breast cancer and complaints of pain in the right rib region. COMPARISON: Whole body bone scan, 09/20/2009. PROCEDURE: Approximately 3 hours following IV administration of 24.7 mCi of technetium-99m MDP, anterior and posterior projection images of the body were obtained. FINDINGS: Again seen are degenerative changes in the lower lumbar spine, stable in appearance compared to the prior study. Bilateral knee prostheses are present with nonspecific periprosthetic activity, stable in appearance. No other significant osseous abnormalities are identified. Specifically, there is normal activity in the bilateral anterior and posterior rib cage. IMPRESSION IMPRESSION: No evidence for osseous metastasis. Assessment/Plan: Shraddha is doing well at this point in time with no evidence of recurrent breast cancer. She is tolerating Femara 2.5 mg daily. We'll see her in followup in 6 months time with a CBC and CMP. She will keep her followup with Gen. surgery at [facility] with plans on mammography prior to that visit. documented in this encounter Procedure Notes Provider, Scanning - 12/01/2010 9:29 PM EDTAssociated Order(s): SCAN DOC: LAB documented in this encounter Plan of Treatment Not on filedocumented as of this encounter Procedures Procedure Name Priority Date/Time Associated Diagnosis Comme nts LAB SCAN 12/01/2010 9:29 PM Results f or this EDT procedure are i n the results section . documented in this encounter Results SCAN DOC: LAB (12/01/2010 9:29 PM EDT) Narrative 12/01/2010 9:29 PM EDT Procedure Note Provider, Scanning - 12/01/2010 9:29 PM EDT Scanning Provider MEDIA MGR SCAN EXT ORDR/RSLT documented in this encounter Visit Diagnoses Diagnosis Breast CA - Primary Malignant neoplasm of breast (female), u nspecified site documented in this encounter Care Teams Train Attendant Relationship Specialty Start Date End Date Michela Stevenson APRN PCP - General 04/29/10 06/07/16 documented as of this encounter
--- OUTSIDE RECORDS SUMMARY | 2022-05-06 08:22 | XMS_ITS | Encounter Summary ---
:1960 Author Organization [facility] [place] [address] Care Team Providers Name Role Phone Michela Stevenson [place] Primary Care Provider Reason for Visit Reason Comments Headache Encounter Details Date Type Department Care Team Description 01/22/2012 Emergency Emergency Department Juan David Dale MD AV ([facility] EMERGENCY MED [place], [place] [id number] [place] [phone] Social History Tobacco Use Types Packs/Day Years [...] Sign Reading Time Taken Comments Blood Pressure 93/56 01/22/2012 9:30 PM EDT Pulse 60 01/22/2012 9:30 PM EDT Temperature 36.8 ??C (98.2 ??F) 01/22/2012 6:46 PM EDT Respiratory Rate 16 01/22/2012 6:46 PM EDT Oxygen Saturation 97% 01/22/2012 9:30 PM EDT Inhaled Oxygen Concentration - - Weight - - Height - - Body Mass Index - - documented in this encounter Discharge Instructions Discharge InstructionsScot Garcia - 01/22/2012 10:30 PM EDT Take phenergan twice daily as needed for nausea and vomiting. You will be notified of followup appointment in neurology clinic. Take ibuprofen as needed for headache. MRI as scheduled on 02/17/2012. documented in this encounter Medications at Time of Discharge Medication Sig Dispensed Refills Start Date End Date promethazine (PHENERGAN) Take 0.5 tablets by 20 tablet 0 01/29/2012 25 mg tablet mouth every 12 hours as needed for Nausea for 7 days. letrozole (FEMARA) 2.5 mg Take 1 tablet [...] as needed. documented as of this encounter ED Notes Sarah Kelly RN - 01/22/2012 9:19 PM EDT Pt eating a meal and awaiting evaluation from neuro. 2nd read of ct has been ordered will cont to montior. ABC's intact resp even and unlabored skin warm dry and intact. Clayton Dale MD - 01/22/2012 7:27 PM EDT Chief Complaint Patient presents with ??? Headache HPI Allergies Allergen Reactions ??? Gloves, Latex Itching [...] / Fever ??? Sulfa (Sulfonamide Antibiotics) Hives Review of Systems Physical Exam Procedures MDM ED Course: ED ATTENDING BRIEF NOTE: This 51 y.o. female was transferred from an outside hospital emergency department to receive specialty care provided by the neurology service for headache. I reviewed the patients vitals as recorded inthe electronic medical record, ED nursing notes, and discussed the case with resident/fellow of the a ccepting service. The patient was deemed to be stable and not require significant involvement from the attending emergency physician at this time. The accepting service has assumed further care of the patient. Please see their notes for any further clinical details. Clayton Dale MD 01/22/121926 Sarah Kelly RN - 01/22/2012 6:58 PM EDT Pt is a transfer from OSH to see neuro for headache and NVD since 01-18. Hx of AV malformation. At this time the only c/o head pressure nausea has subsided no other neurological symptoms at this time. Ihave not walked pt due to monitoring and needing to be evaluated by Neuro. ABC;s intact resp even and unlabored skin warm dry and intact A&Ox3 pt placed on monitor. documented in this encounter Miscellaneous Notes Discharge Summary - Provider, Scanning - 01/25/2012 9:26 AM EDT Consult Note - Scot Garland MD - 01/22/2012 9:22 PM EDT NEUROLOGY CONSULTATION NOTE PATIENT DETAILS Patient name:Shraddha Chavez Date of :1960 Admit date: 01/22/2012 Chief complaint Headache History of Presenting Illness Massive headache which started wednesday afternoon. Then started to have vomiting. Also felt generalized weakness. Woke up on wednesday morning with severe headache. Continued to have headache and vomiting. Called physician's office today morning and was advised to get to ED. She had some speech difficulties and her friends had difficulty understanding her speech. speech was gibberish slurred, knew what she wants to say , but wouldn't come out normally.Speech deficits were persistent till her arrival to ED when she thought it started to improve Headache was primarily on the left side and she also had some blurry vision on left side and left eye was found to be droopy according to her. Also complains of dizziness She receive promethazine from OSH. On arrival here headache improved. Past Medical History Breast cancer , diagnosed in september 2009 s/p partial mastectomy, chemotherapy, radiotherapy total knee replacement Cerebral A-V Mallformation: January 2010: MRI at [facility] showed tortuos ectatic vessels in shiraz medial left temproal lobe spanning 2cm or mor in diameter. No h/o rupture. Was evaluated by Neurosurgery. Has stereotactic radiosurgery treatment in 08/2010. MRI 07/2011 showed interval decrease in size of the left temporal lobe AVM wiht decreased flow Cataract and optic nerve head drusen in 11/07/2010, vision subsequently found to be improved H/o headaches associated with AVM GERD Arthritis Carpal tunnel release Hysterectomy Rotator cuff repair Family History father mudered 33 years ago. had enlarged heart and AVM mother had CHF Personal/ Socioeconomic history smoking + alcohol occasional Medications/ Allergy Meds: loratidine 10 daily, vit B , ibuprofen, letrozole 2.5 daily, ocal 500 D, Cyclobenzaprine 10 daily, deslansoprazole, bisacodyl. Allergies: Latex, coein, toradol, morphine, NSAIDs, oxycodone, promethazine, vicodin, hydromorphone,adhesive, aspirin, tramadol, magnesiu, cortisone, sulfa ROS No ringing in ears fever today: 101.4 but not before Vitals: Temp: [36.8 ??C (98.2 ??F)] Heart Rate: [55-58] Resp: [16] BP: (111)/(54) SpO2: [99 %] Physical Examination Well built and nourished Lung clear S1S2 normal Abdome soft No edema bilateral s/p knee surgery Neurological Examination Alert and oriented. Initially patient exhibited non physiologic slurring of speech which got corrected later during her speech Pupils equal, EOMI, No field cut. No papilledema. Acuity: R 20/40, L 20/100. No facial asymmetry Full strength bilaterally appreciates sensations equally bilaterally Diminished DTR bilateral knee, ankle, elbow No incoordination No cerebellar signs Labs/ Imaging OSH CBC, BMP: normal Creatinine 1.[address] : no bleed EKG: sinus rhythm Assessment and Plan 51 F with h/o [...] ? Secondary to radiation damage of brain. rule out changes in AVM or lesions secondary to breast cancer. Workup: Needs f/up MRI brain which has been scheduled already Patient offered admission and IV therapy for presumed migraine, and MRI to be done right away instead of in a month. She declines admission and wants to go home. I think it is OK to let her go. I doubtserious pathology. Recommendation: Symptomatic measures for headache. Ibuproofen/ Promethazine. Will arrange f/up in neurology clinic. May discharge home Scot Garcia MD Resident Physician Neurology Pager [phone] Neurology Attending I saw and evaluated the patient with the neurology team. I have reviewed the resident's history during the visit and I agree with the details as written. My physical examination confirms the resident'sfindings. The assessment and plan were formulated in discussion with me at the time of the visit Eris agree with them as documented. Scot Garland MD [place] [address] Pager #[phone] Email: [email or web address] Miscellaneous - Provider, Scanning - 01/22/2012 8:48 PM EDT ED Triage - Sarah Kelly RN - 01/22/2012 6:47 PM EDT Pt is a transfer from [facility] for evaluation from Neurology for AV malfunction complication N/V/D since 01-18. Pt had chest pain that is resolving on the ride to [facility]. documented in this encounter Plan of Treatment Not on filedocumented as of this encounter Procedures Procedure Name Priority Date/Time Associated Diagnosis Comme nts EKG 12-LEAD STAT 01/22/2012 7:17 PM Results f or this EDT procedure are i n the results section . documented in this encounter Results EKG 12 Lead (01/22/2012 7:17 PM EDT) Component Value Ref Range Test Analysis Performed Pathologis t Method Time At Signature Ventricular rate 61 BPM MUSE SYSTEM Atrial Rate 61 BPM MUSE SYSTEM P-R Interval 148 ms MUSE SYSTEM QRS Duration 84 ms MUSE SYSTEM Q-T Interval 446 ms MUSE SYSTEM QTC Calculated 448 ms MUSE SYSTEM (Bezet) Calculated P Wharton 36 degrees MUSE SYSTEM Calculated R [place]arton 21 degrees MUSE SYSTEM Calculated T [place]arton 34 degrees MUSE SYSTEM INTERPRETATION Normal sinus rhythm MUSE SYSTEM Normal ECG When compared with ECG of 15-OCT-2009 08:46, No significant change was found Confirmed by MD KINJAL, SINAN ([id number]) on 01/23/2012 4:05:06 PM Specimen Anatomical Collection Method Collection Time Receive d Time (Source) Location / / Volume Laterality 01/22/2012 7:17 PM 2 4:05 EDT PM EDT Clayton Dale MD ECG ORDERABLES Performing Organization Address City/State/ZIP Code Phon e Number MUSE SYSTEM documented in this encounter Visit Diagnoses Diagnosis AVM (arteriovenous malformation) 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
--- OUTSIDE RECORDS SUMMARY | 2022-05-06 08:22 | XMS_ITS | Encounter Summary ---
:1960 Author Organization [facility] [place] [address] Care Team Providers Name Role Phone Stevenson, Michela Stanley APRN Primary Care Provider Encounter Details Date Type Department Care Team Description 03/16/2012 Telephone Radiation Oncology at Domonique Pratt APRN [address] [place] [address] [place], [place] [id number] (Wo rk) Social History Tobacco Use Types [...] Telephone Encounter - Domonique James APRN - 03/16/2012 12:05 PM EDT Call from patient indicating that she was seen in ER again last week ([facility]). She continues with nausea, pressure involving her head and problems with smells. She indicates that the ER MD had her stop some of her medications so she is not sure what to do. She can come to clinic in [facility] tomorrow. I have asked her to bring all of her medications. documented in this encounter Plan of Treatment Not on filedocumented as of this encounter Visit Diagnoses Not on filedocumented in this encounter Care Teams Manufacturing Support Engineer Relationship Specialty Start Date End Date Michela Stevenson APRN PCP - General 04/29/10 06/07/16 documented as of this encounter
--- OUTSIDE RECORDS SUMMARY | 2022-05-06 08:22 | XMS_ITS | Encounter Summary ---
:1960 Author Organization [facility] [place] [address] Care Team Providers Name Role Phone Michela Stevenson CAR[place] Primary Care Provider Encounter Details Date Type Department Care Team Description 02/29/2012 Orders Only Orthopaedics at [facility] Levy Altamirano History of total knee [facility] MD Rikki arthroplasty (Primary Drive [facility] [place] [address] CENTER [phone] ORTHOPAEDIC SURGERY [place], [place] [address] Social History Tobacco Use Types [...] filedocumented as of this encounter Results XR JOINT TEAM ALIGNMENT [...] of pt. Comparison Knee radiographs from 03/04/2009. Standdorys scott alignment view from 12/06/2008. Technique STANDING ALIGNMENT:Separate [...] a focal dorsal bone prot rusion. Levy Altamirano MD IMG DX ORDERABLES documented in this encounter Visit Diagnoses Diagnosis History of total knee arthroplasty - [facility] Knee joint replacement by other means History of total knee arthroplasty Knee joint replacement by other means documented in this encounter Care Teams Special Education Preschool Teacher Relationship Specialty Start Date End Date Michela Stevenson APRN PCP - General 04/29/10 06/07/16 documented as of this encounter
--- OUTSIDE RECORDS SUMMARY | 2022-05-06 08:22 | XMS_ITS | Encounter Summary ---
:1960 Author Organization [facility] [place] [address] Care Team Providers Name Role Phone Michela Stevenson APRN Primary Care Provider Encounter Details Date Type Department Care Team Description 05/11/2011 Orders Only Hematology Oncology Precious Ibanez B reast cancer (Primary at [facility] RN Dx) [address] [place] [phone] Social History Tobacco Use Types Packs/Day [...] site documented in this encounter Care Teams Aix System Administrator Relationship Specialty Start Date End Date Michela Stevenson APRN PCP - General 04/29/10 06/07/16 documented as of this encounter
--- OUTSIDE RECORDS SUMMARY | 2022-05-06 08:22 | XMS_ITS | Encounter Summary ---
:1960 Author Organization [facility] [place] [address] Care Team Providers Name Role Phone Michela Stevenson APRN Primary Care Provider Encounter Details Date Type Department Care Team Description 03/18/2012 [facility] [address] RADIATION ONCOLOGY [place], [place] [id number] [place] [address] [phone] Social History Tobacco Use Types Packs/Day Years [...] filedocumented in this encounter Care Teams Machine Ii Engraver Relationship Specialty Start Date End Date Michela Stevenson APRN PCP - General 04/29/10 06/07/16 documented as of this encounter
--- OUTSIDE RECORDS SUMMARY | 2022-05-06 08:22 | XMS_ITS | Encounter Summary ---
:1960 Author Organization [facility] [place] [address] Care Team Providers Name Role Phone Michela Stevenson [place] Primary Care Provider Reason for Visit Reason Comments Eye Problem Patient here for OVF and re- evaluate optic nerve Encounter Details Date Type Department Care Team Description 04/01/2012 Follow-Up Ophthalmology at [facility] Jadon De La Garza MD AVM (arteriovenous malformation) (Primar y Dx); [facility] Sully roberts [facility] [place] [address] OPHTHALMOLOGY DEPT. [place], [place] [address] Social History Tobacco Use Types [...] documented as of this encounter Progress Notes Jadon Vences MD - 04/01/2012 4:24 PM EDT 52 yo woman with chronic headaches, past radiation for left temporal AVM 08/2010, with a normal ophthalmic exam. Her visual kiran vary and show ring scotomas with a ROTARY FILTER OPERATOR pattern. Reassurance given abouther exam findings. New MRx given. Follow up locally with room service runner or prn changes. documented in this encounter Nursing Notes 04/01/2012 2:15 PM EDT >> JADON VENCES MD WedApr 01, 2012 4:20 PM 52 Y F with history of Left temporal AVM s/p SRS in 08/2010 with headaches about every other to everythree days. She has had varying, poor visual kiran. She has some blurriness. She also has had improvement in her nausea after injections to the back of her skull. >> RAMA Pearson WedApr 01, 2012 3:06 PM 52 y.o., C/O Patient presents with history of radiotherapy for left temporal AVM with visual problems. Patient ready for new glasses. Patient notices her vision has decreased with driving and reading DROPS: None HX:Headache Blurry vision Visual field defect -Asthma or -COPD documented in this encounter Plan of Treatment Not on filedocumented as of this encounter Procedures Procedure Name Priority Date/Time Associated Diagnosis Comme nts AUTOMATED VISUAL Routine 04/01/2012 4:23 PM Blurry vision Resu lts for this FIELD - EXTENDED - EDT procedure are in OU- BOTH EYES the results section. documented in this encounter Results AUTOMATED VISUAL FIELD - EXTENDED - OU- BOTH EYES (04/01/2012 4:23 PM EDT) Anatomical Region Laterality Modality Other Specimen (Source) Anatomical Location Collection Method / Collectio n Time Received Time / Laterality Volume Narrative 04/01/2012 4:23 PM EDT OS global depression, ring scotoma, MD 18.5, 4/8 neg catch trials OD: global depression, ring scotoma MD 1 3.6 2/9 neg catch trials Procedure Note Jadon Vences MD - 04/01/2012Formattin g of this note might be different from the original. 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
--- OUTSIDE RECORDS SUMMARY | 2022-05-06 08:22 | XMS_ITS | Encounter Summary ---
:1960 Author Organization [facility] [place] [address] Care Team Providers Name Role Phone Michela Stevenson APRN Primary Care Provider Encounter Details Date Type Department Care Team Description 04/28/2011 Orders Only Radiation Oncology at [place], Lynnette Latham (fany Alex MD malformation) [facility] [place] [address] [place] [address] [phone] Social History Tobacco Use Types Packs/Day Years [...] site documented in this encounter Care Teams Tower Operator Relationship Specialty Start Date End Date Michela Stevenson APRN PCP - General 04/29/10 06/07/16 documented as of this encounter
--- OUTSIDE RECORDS SUMMARY | 2022-05-06 08:22 | XMS_ITS | Encounter Summary ---
:1960 Author Organization [facility] [place] [address] Care Team Providers Name Role Phone Graham Michela Jaden FIGUEROA Primary Care Provider Reason for Visit Reason Onset Date Comments Follow-up 05/13/2011 Encounter Details Date Type Department Care Team Description 05/13/2011 Telephone General Surgery at [facility] Stephanie Benedict APRN Follow-up [facility] [place] [address] GENERAL SURGERY [phone] [place], [place] [address] (Wo rk) Social History Tobacco Use Types Packs/Day Years Used Date Smoking Tobacco: Former Cigarettes 1 37 Quit : 05/21/2010 Alcohol Use Standard Drinks/Week Comments No 0 (1 standard drink = 0.6 oz pure alcoho l) Sex Assigned at Date Recorded Not on file documented as of this encounter Miscellaneous Notes Telephone Encounter - Stephanie Benedict APRN - 05/13/2011 1:11 PM EST I called Shraddha to discuss follow up after her breast imagine showed no abnormalities. I told her I was reassured by this and am recommending she monitor her breast exam and RTC in July for her annual appt with Dr Barnhart. She agrees with this plan. documented in this encounter Plan of Treatment Not on filedocumented as of this encounter Visit Diagnoses Not on filedocumented in this encounter Care Teams Accountant Clerk Relationship Specialty Start Date End Date Michela Stevenson APRN PCP - General 04/29/10 06/07/16 documented as of this encounter
--- OUTSIDE RECORDS SUMMARY | 2022-05-06 08:22 | XMS_ITS | Encounter Summary ---
:1960 Author Organization [facility] [place] [address] Care Team Providers Name Role Phone Luz Stevensonne Jaden CAR[place] Primary Care Provider Encounter Details Date Type Department Care Team Description 01/27/2012 Telephone Radiation Oncology at Domonique Pratt APRN [address] [place] [address] [place], [place] [phone] (Wo rk) Social History Tobacco Use Types [...] Telephone Encounter - Domonique James APRN - 01/27/2012 4:[address]T Call from Dr Ervin from [facility] wanting clinical information regarding patient. We will fax copy of most recent MRI, clinical history and neuro evaluation that was done 01/22/2012. They will do re-imaging given that patient is complaining of massive pressure in her head. documented in this encounter Plan of Treatment Not on filedocumented as of this encounter Visit Diagnoses Not on filedocumented in this encounter Care Teams Professor Of Biostatistics Relationship Specialty Start Date End Date Michela Stevenson APRN PCP - General 04/29/10 06/07/16 documented as of this encounter
--- OUTSIDE RECORDS SUMMARY | 2022-05-06 08:22 | XMS_ITS | Encounter Summary ---
:1960 Author Organization [facility] Address [address] [facility] [place] [address] Care Team Providers Name Role Phone Michela Stevenson Jaden FIGUEROA Primary Care Provider Reason for Visit Reason Comments Radiation Follow-up AVM Encounter Details Date Type Department Care Team Description 02/04/2012 Follow-Up Radiation Oncology at Wilfredo James APRN AVM (arteriovenous [address] malformation) (Primary [address] [place] [address] Drive RADIATION ONCOLOGY Dx) [place] [id number] (Wo rk) Social History Tobacco Use Types [...] Sign Reading Time Taken Comments Blood Pressure 124/80 02/04/2012 9:17 AM EDT Pulse 71 02/04/2012 9:17 AM EDT Temperature 36.5 ??C (97.7 ??F) 02/04/2012 9:17 AM EDT Respiratory Rate 16 02/04/2012 9:17 AM EDT Oxygen Saturation 99% 02/04/2012 9:17 AM EDT Inhaled Oxygen Concentration - - Weight 84.8 kg (187 lb) 02/04/2012 9:17 AM EDT Height 160 cm (5' 2.99) 02/04/2012 9:17 AM EDT Body Mass Index 33.13 02/04/2012 9:17 AM EDT documented in this encounter Progress Notes ErikaGeovannyDomonique M, RESIDENTIAL GREEN BUILDING DESIGNER - 02/04/2012 9:21 AM EDT Identification Shraddha Chavez is a 52 y.o. 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 Patient returns in routine follow-up. HPI Starting in early January 2010, Mrs [...] headaches spurred a brain MRI performed at [facility]. This demonstrated an area of numerous tortuous [...] Take 800 mg by mouth as needed. Interval history Patient recently seen in ER at [facility], [facility] and [facility]: No intracranial bleed. Patient had MRIfollow ing this (report below). Consult with Dr Carlyle beltre who recommended starting dexamethasone, trental and Vit E. Patient has appointment with neurology 02/24 at [facility]. has not slept in two days No visual complaints pressure left side of face 5/10 that starts on the left and then goes to the back and radiates downto her shoulders. No nausea today Speech intact today + driving No limitation of visual field Walking fine, without balance issues. Review of Systems Constitutional: Negative. Negative for fever, chills, diaphoresis, activity change and appetite change. Eyes: Negative. Respiratory: Negative. Cardiovascular: Negative. Genitourinary: Negative. Musculoskeletal: Negative. Negative for gait problem. Skin: Negative. Neurological: Positive for numbness and headaches. Negative for tremors, speech difficulty and weakness. Reports numbness and pain left side of face that radiates toward the back down to shoulder. pressure sensation left side of head Hematological: Does not bruise/bleed easily. Psychiatric/Behavioral: Positive for sleep disturbance. Negative for confusion. The patient is nervous/anxious. Difficulty sleeping since starting decadron Recent Review Flowsheet Data View Complete Flowsheet Oncology Vitals 02/04/2012 Weight 84.823 kg Height 160 cm BSA (Calculated - sq m) 1.94 BMI (Calculated) 33.2 Temp 97.7 Temp src 1 Pulse 71 Heart Rate Source Left;NIBP Resp 16 BP 124/80 BP Location Left arm Patient Position Sitting SpO2 99 Pain Level 5 FACES Pain Rating: Rest - FACES Pain Rating: Activity - Karnofsky Score - Oncology Vitals 02/04/2012 Height (cm) - Weight (kg) - BSA [...] tone. She displays no seizure activity. Coordination normal. Strength and sensation bilaterally symmetric and intact across the face. Hearing intact bilaterally. Shoulder shrug and sternocleidomastoid functions bilaterally intact. Uvula elevates midline. Tongueextends midline. Strength, sensation intact in the upper and lower extremities. Hyporeflexic. Stablegait. Romberg--unsteady, Intact finger-nose testing. Intact tandem walk Skin: Skin is warm and dry. No rash noted. She is not diaphoretic. No erythema. No pallor. Psychiatric: She has a normal mood and affect. Her speech is normal and behavior is normal. Thought content normal. Cognition and memory are normal. She expresses impulsivity. MR BRAIN W/WO CONTRAST 01/29/2012Clinical History ARTERIOVENOUS MALFORMATION S/P SRS in August 2010 Eval for response AVM-protocol Comparison MRI 08/04/2011. Technique MRI of the brain performed prior to and following intravenous administration of 18 mL Magnevist. Findings Previously seen left mesial temporal arteriovenous malformation [...] medial temporal arterial venous malformation with apparent decreasein size of flow void corresponding to a large draining vein, and increased size of parenchymal enhancement. Asessment/Plans AVM: Patient was treated with SRS for AVM. 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 She has been started on decadron, trental and vitamin E. Sleep interference has been significant with a dose of decadron 2 mg twice a day. Patient was instructed to take the decadron earlier in the day. We did not increase the dose to 4mg bid. She is to come to [facility] on 02/25/2012 for scheduled consult with neurology and we will arrangefor her to be seen in Rad/Onc at that time. Patient questions were answered. Shraddha Chavez was seen in follow-up for a total of 25 minutes, with 20 minutes of that time spent discussing her current clinical condition, reviewing her current MRI result, and planning further management. 02/09/2012: Addendum: Call made to patient indicating that she is sleeping better with taking the decadron earlier in the day. She is also reporting that the headaches are less intense. 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
--- OUTSIDE RECORDS SUMMARY | 2022-05-06 08:23 | XMS_ITS | Encounter Summary ---
:1960 [place] [address] Care Team Providers Name Role Phone Michela Stevenson APRN Primary Care Provider Reason for Visit Reason Onset Date Comments Confirmation 10/21/2010 Encounter Details Date Type Department Care Team Description 10/21/2010 Telephone Radiation Oncology at Antoni [place] [address] Social History Tobacco Use Types Packs/Day Years Used Date Smoking Tobacco: Former Cigarettes 1 37 Quit : 05/21/2010 Alcohol Use Standard Drinks/Week Comments No 0 (1 standard drink = 0.6 oz pure alcoho l) Sex Assigned at Date Recorded Not on file documented as of this encounter Miscellaneous Notes Telephone Encounter - Antoni Turner RN - 10/21/2010 9:27 AM EDT Patient reports she continues with Head pressure several times a day. She reports chronic mild word finding difficulties and moderate fatigue since her SRS almost three months ago. She is scheduled to see Dr. Tadeo in follow up on 11-13-2010. She is also being followed by her PCP Dr. Stevenson and Domonique James APRN at [facility]. She was last seen by Domonique on 10-10-2010. She reports she justwanted Dr. Tadeo to know that these symptoms are continuing.Instructed patient to call with any further questions or concerns. documented in this encounter Plan of Treatment Not on filedocumented as of this encounter Visit Diagnoses Not on filedocumented in this encounter Care Teams Headliner Installer Relationship Specialty Start Date End Date Michela Stevenson APRN PCP - General 04/29/10 06/07/16 documented as of this encounter
--- OUTSIDE RECORDS SUMMARY | 2022-05-06 08:23 | XMS_ITS | Encounter Summary ---
:1960 Author Organization [place] [address] Care Team Providers Name Role Phone Unavailable Primary Care Provider Unavailable Encounter Details Date Type Department Care Team Description 04/14/2010 Follow-Up General Surgery at [facility] Rachele Barnhart MD [facility] [place] [address] GENERAL SURGERY [phone] [place], [place] [address] (Wo rk) Social History Tobacco Use Types Packs/Day Years Used Date Smoking Tobacco: Never Assessed Sex Assigned at Date Recorded Not on file documented as of this encounter Plan of Treatment Not on filedocumented as of this encounter Visit Diagnoses Not on filedocumented in this encounter
--- OUTSIDE RECORDS SUMMARY | 2022-05-06 08:23 | XMS_ITS | Encounter Summary ---
:1960 Author Organization [facility] [place] [address] Care Team Providers Name Role Phone Michela Stevenson [place] Primary Care Provider Encounter Details Date Type Department Care Team Description 10/16/2010 Hospital Encounter Nuclear Medicine at [facility], [facility] Breast cancer Malika IsaiFadi Miles MD [facility] [place] [address] [place] [address] Social History Tobacco Use Types Packs/Day Years Used Date Smoking Tobacco: Former Cigarettes 1 37 Quit : 05/21/2010 Alcohol Use Standard Drinks/Week Comments No 0 (1 standard drink = 0.6 oz pure alcoho l) Sex Assigned at Date Recorded Not on file documented as of this encounter Medications at Time of Discharge Medication Sig Dispensed Refills Start Date End Date ciprofloxacin (CIPRO) 250 Take 1 tablet by 20 tablet 0 11/201010/20/2010 mg tabletIndications: mouth 2 times daily Mastitis for 10 days. letrozole (FEMARA) 2.5 mg 2.5 MG = 1 0 08/12/2010 05/11/2011 tablet Tablet(s), PO, Once daily dexamethasone (DECADRON) 2 2 MG = 1 Tablet(s), 0 08/12/2010 10/21/2010 mg tablet PO, Once daily x 5 days documented as of this encounter Plan of Treatment Pending Results Name Type Priority Associated Diagnoses Date/Ti me NM INJECTION Imaging Routine 10/16/2010 10:1 8 AM EDT documented as of this encounter Visit Diagnoses Diagnosis Breast cancer Malignant neoplasm of breast (female), u nspecified site documented in this encounter Care Teams Testing Consultant Relationship Specialty Start Date End Date Michela Stevenson APRN PCP - General 04/29/10 06/07/16 documented as of this encounter
--- OUTSIDE RECORDS SUMMARY | 2022-05-06 08:23 | XMS_ITS | Encounter Summary ---
:1960 Author Organization [facility] [place] [address] Care Team Providers Name Role Phone Michela Stevenson APRN Primary Care Provider Encounter Details Date Type Department Care Team Description 07/02/2010 Procedure visit [place] [address] Social History Tobacco Use Types Packs/Day Years Used Date Smoking Tobacco: Never Assessed Sex Assigned at Date Recorded Not on file documented as of this encounter Plan of Treatment Not on filedocumented as of this encounter Visit Diagnoses Not on filedocumented in this encounter Care Teams Chamber Worker Relationship Specialty Start Date End Date Michela Stevenson APRN PCP - General 04/29/10 06/07/16 documented as of this encounter
--- OUTSIDE RECORDS SUMMARY | 2022-05-06 08:23 | XMS_ITS | Encounter Summary ---
:1960 Author Organization [facility] [place] [address] Care Team Providers Name Role Phone Michela Stevenson APRN Primary Care Provider Encounter Details Date Type Department Care Team Description 06/19/2010 Surgical Consult Neurosurgery at [facility] Marleen Lawrence, [facility] [place] [address] [facility] [phone] NEUROSURGERY [place], [place] [address] (Wo rk) Social History Tobacco Use Types Packs/Day Years Used Date Smoking Tobacco: Never Assessed Sex Assigned at Date Recorded Not on file documented as of this encounter Plan of Treatment Not on filedocumented as of this encounter Visit Diagnoses Not on filedocumented in this encounter Care Teams Food Stylist Relationship Specialty Start Date End Date Michela Stevenson APRN PCP - General 04/29/10 06/07/16 documented as of this encounter
--- OUTSIDE RECORDS SUMMARY | 2022-05-06 08:23 | XMS_ITS | Encounter Summary ---
:1960 Author Organization [facility] Address [facility] [place] [address] Care Team Providers Name Role Phone Michela Stevenson APRN Primary Care Provider Encounter Details Date Type Department Care Team Description 09/25/2010 Hospital Encounter XRay at [address] [place] [address] Social History Tobacco Use Types Packs/Day Years Used Date Smoking Tobacco: Never Assessed Sex Assigned at Date Recorded Not on file documented as of this encounter Medications at Time of Discharge Medication Sig Dispensed Refills Start Date End Date letrozole (FEMARA) 2.5 mg 2.5 MG = 1 0 08/12/2010 05/11/2011 tablet Tablet(s), PO, Once daily dexamethasone (DECADRON) 2 2 MG = 1 0 10/21/2010 mg tablet Tablet(s), PO, Once daily x 5 days documented as of this encounter Plan of Treatment Not on filedocumented as of this encounter Visit Diagnoses Not on filedocumented in this encounter Care Teams Steel Barrel Reamer Relationship Specialty Start Date End Date Michela Stevenson APRN PCP - General 04/29/10 06/07/16 documented as of this encounter
--- OUTSIDE RECORDS SUMMARY | 2022-05-06 08:23 | XMS_ITS | Encounter Summary ---
:1960 Author Organization [facility] Address [facility] [place] [address] Care Team Providers Name Role Phone Michela Stevenson APRN Primary Care Provider Encounter Details Date Type Department Care Team Description 10/06/2010 Orders Only Radiation Oncology at [place], Lynnette Latham VM (fany Alex MD malformation) (Primary [facility] Dx) [facility] [place] [address] [place] [address] [phone] Social History Tobacco Use Types Packs/Day Years [...] site documented in this encounter Care Teams Head Of Training And Development Relationship Specialty Start Date End Date Michela Stevenson APRN PCP - General 04/29/10 06/07/16 documented as of this encounter
--- OUTSIDE RECORDS SUMMARY | 2022-05-06 08:23 | XMS_ITS | Encounter Summary ---
:1960 Author Organization [facility] Address [place] [address] Care Team Providers Name Role Phone Michela Stevenson APRN Primary Care Provider Encounter Details Date Type Department Care Team Description 09/25/2010 Hospital Encounter XRay at [address] [place] [address] Social History Tobacco Use Types Packs/Day [...] on filedocumented in this encounter Care Teams Esl Instructional Assistant Relationship Specialty Start Date End Date Michela Stevenson APRN PCP - General 04/29/10 06/07/16 documented as of this encounter
--- OUTSIDE RECORDS SUMMARY | 2022-05-06 08:23 | XMS_ITS | Encounter Summary ---
:1960 Author Organization [facility] [place] [address] Care Team Providers Name Role Phone Michela Stevenson APRN Primary Care Provider Encounter Details Date Type Department Care Team Description 07/02/2010 Office Visit Ophthalmology at [facility] Katherine De La Garza MD [facility] [place] [address] OPHTHALMOLOGY DEPT. [phone] [place], [place] [address] ( rk) Social History Tobacco Use Types Packs/Day Years Used Date Smoking Tobacco: Never Assessed Sex Assigned at Date Recorded Not on file documented as of this encounter Plan of Treatment Not on filedocumented as of this encounter Visit Diagnoses Not on filedocumented in this encounter Care Teams Fisher Scallop Relationship Specialty Start Date End Date Michela Stevenson APRN PCP - General 04/29/10 06/07/16 documented as of this encounter
--- OUTSIDE RECORDS SUMMARY | 2022-05-06 08:23 | XMS_ITS | Encounter Summary ---
:1960 Author Organization [facility] [place] [address] Care Team Providers Name Role Phone Michela Stevenson APRN Primary Care Provider Encounter Details Date Type Department Care Team Description 07/14/2010 Follow-Up General Surgery at [facility] Rachele Barnhart MD [facility] [place] [address] GENERAL SURGERY [phone] [place], [place] [address] ( rk) Social History Tobacco Use Types Packs/Day Years Used Date Smoking Tobacco: Never Assessed Sex Assigned at Date Recorded Not on file documented as of this encounter Plan of Treatment Not on filedocumented as of this encounter Visit Diagnoses Not on filedocumented in this encounter Care Teams Gel Coater Relationship Specialty Start Date End Date Michela Stevenson APRN PCP - General 04/29/10 06/07/16 documented as of this encounter
--- OUTSIDE RECORDS SUMMARY | 2022-05-06 08:23 | XMS_ITS | Encounter Summary ---
:1960 Author Organization [facility] [place] [address] Care Team Providers Name Role Phone Michela Stevenson APRN Primary Care Provider Reason for Visit Reason Onset Date Comments Other 10/09/2010 would like a call ba christal Encounter Details Date Type Department Care Team Description 10/09/2010 Telephone Radiation Oncology at [place], Wilfredo Brandt APRN Other (would like a [address] call back) [address] [place] [id number] (Wo rk) Social History Tobacco Use Types Packs/Day Years Used Date Smoking Tobacco: Former Cigarettes 1 37 Quit : 05/21/2010 Alcohol Use Standard Drinks/Week Comments No 0 (1 standard drink = 0.6 oz pure alcoho l) Sex Assigned at Date Recorded Not on file documented as of this encounter Miscellaneous Notes Telephone Encounter - Felipa Partida - 10/09/2010 1:12 PM EDT Josh Llanes called and asked if you get a moment in between patients if you could please give her a call. I told her that I would relay the message, and it looked like you may be able to call her this afternoon. She said that sounded fine. Thanks! Felipa Return call to Shraddha, She reports that she is having increased pain to her breast as well as the rib pain. She is available to come to clinic tomorrow for evaluation. Shraddha to be seen at 10:00 am Domonique James APRN documented in this encounter Plan of Treatment Not on filedocumented as of this encounter Visit Diagnoses Not on filedocumented in this encounter Care Teams Hosiery Operator Relationship Specialty Start Date End Date Michela Stevenson APRN PCP - General 04/29/10 06/07/16 documented as of this encounter
--- OUTSIDE RECORDS SUMMARY | 2022-05-06 08:23 | XMS_ITS | Encounter Summary ---
:1960 Author Organization [facility] [place] [address] Care Team Providers Name Role Phone Michela Stevenson APRN Primary Care Provider Encounter Details Date Type Department Care Team Description 04/29/2010 Follow-Up Neurosurgery at [facility] George Harrington MD [facility] [place] [address] NEUROSURGERY DEPT. [phone] [place], [place] [address] (Wo rk) Social History Tobacco Use Types Packs/Day Years Used Date Smoking Tobacco: Never Assessed Sex Assigned at Date Recorded Not on file documented as of this encounter Plan of Treatment Not on filedocumented as of this encounter Visit Diagnoses Not on filedocumented in this encounter Care Teams Home Care Administrator Relationship Specialty Start Date End Date Michela Stevenson APRN PCP - General 04/29/10 06/07/16 documented as of this encounter
--- OUTSIDE RECORDS SUMMARY | 2022-05-06 08:23 | XMS_ITS | Encounter Summary ---
:1960 Author Organization [facility] [address] Care Team Providers Name Role Phone Michela Stevenson APRN Primary Care Provider Encounter Details Date Type Department Care Team Description 09/24/2010 Orders Only [place] [facility] [place] Us MD [facility] [place] [address] ORTHOPAEDIC SURGERY [phone] [place], [place] [address] Social History Tobacco Use Types Packs/Day Years Used Date Smoking Tobacco: Never Assessed Sex Assigned at Date Recorded Not on file documented as of this encounter Plan of Treatment Not on filedocumented as of this encounter Visit Diagnoses Not on filedocumented in this encounter Care Teams Financial Examiner Relationship Specialty Start Date End Date Michela Stevenson APRN PCP - General 04/29/10 06/07/16 documented as of this encounter
--- OUTSIDE RECORDS SUMMARY | 2022-05-06 08:23 | XMS_ITS | Encounter Summary ---
:1960 Author Organization [facility] [place] [address] Care Team Providers Name Role Phone Michela Stevenson CAROL[place] Primary Care Provider Reason for Referral Surgical (Routine) - Closed Specialty Diagnoses / Procedures Referred By Contact Refer red To Contact Orthopaedic Surgery / Diagnoses Shoulder pain, right Ron Us MD Nutting, John T, MD Orthopaedics [facility] [address] [place] ORTHOPAEDIC SURGERY ORTHOPAEDIC [place]GERY [place], [place] [id number] [place] [address] Phone: Fax: Referral ID Status Reason Start Date Expiration Date Visits V isits Requested Authorized [id number] Closed Consult, 09/25/2010 03/24/2011 1 1 Test & Treat Reason for Visit Reason Comments Right Hand Pain Right Shoulder Pain Encounter Details Date Type Department Care Team Description 09/25/2010 Office [place] [facility] [place] Us, Shoulder pain, right [facility] (Primary [place]x) [place] [address] [phone] ORTHOPAEDIC SURGERY [place], [place] [address] Social History Tobacco Use Types Packs/Day Years Used Date Smoking Tobacco: Never Assessed Sex Assigned at Date Recorded Not on file documented as of this encounter Progress Notes Jacky, Cementer - 10/01/2010 10:23 PM EDT Jacky, Cementer - 10/01/2010 10:22 PM EDT Jacky, Cementer - 10/01/2010 10:22 PM EDT Jacky, Cementer - 10/01/2010 10:21 PM EDT Jacky, Cementer - 10/01/2010 10:20 PM EDT Jacky, Cementer - 10/01/2010 10:20 PM EDT Ron Us MD - 09/25/2010 1:22 PM EDT Shraddha is a very pleasant 50-year-old female who I have cared for in the past. I did a left carpal tunnel release and this has done well. She is status post a right shoulder subacromial decompression by Dr. Webb about two years ago. At the same time, she also had a carpal tunnel release on the right side done by Dr. Webb at the same setting. The date of that surgery was 07/25/2008. At that time of the surgery, they described a partial thickness articular surface tear of the supraspinatus and infraspinatus which was debrided. A subacromial decompression was undertaken and debridement of the partial thickness tear of the rotator cuff was noted. Preoperatively, the patient had an MRI of the right shoulder and this was interpreted as consistent with significant tendinopathy, but was also noted that at least on the images that they saw that there may have been what they described as a focal area of full thickness tearing. I suspect that she had fairly significant thinning of the rotator cuff. The patient is seen today for principally regarding her right shoulder pain. She states it has been uncomfortable now for a few months. She is not aware of any trauma or injury. She points to the deltoid area that has been uncomfortable. She denies any distal neurovascular complaints. They did get x-rays today of her shoulder and her hand; I think these are unremarkable without any evidence of acute injuries or any significant arthritis. Her right hand is actually doing well. Her incision is well healed. She has intact sensation throughout all digits. She had full flexion and extension of all fingers and FPL and EPL are both intact. With regard to the shoulder, she has difficulty bringing her arm through a full range of motion, though with some encouragement she is able to do so especially into forward flexion and abduction. Internal rotation to the lower lumbar spine, external rotation probably lacking about 10 to 15 degrees, but I think this is secondarily only to pain. She had pain with abduction against resistance. Impingement test is uncomfortable and her New Riegel's test uncomfortable as well. She is tender over the subacromial space. She has well healed portals about the right shoulder. IMPRESSION: Doing well status post a carpal tunnel releases bilaterally, but noting increasing right shoulder pain. I suspect that there was noted to be significant tendinopathy and partial tearing and that I wonder whether or not she may have now a full thickness tear of the rotator cuff. In that regard, I have set her up for an MRI of the right shoulder. I will ask you to see Dr. Webb in followup so that he can review the MRI and her clinical exam at that time. The patient is happy with this approach. documented in this encounter Procedure Notes Provider, Scanning - 10/01/2010 10:18 PM EDTAssociated Order(s): SCAN DOC: DIAGNOSTIC RADIOLOGY documented in this encounter Miscellaneous Notes Miscellaneous - Jacky, Cementer - 10/03/2010 12:10 PM EDT documented in this encounter Plan of Treatment Scheduled Referrals Name Type Priority Associated Order Schedule Diagnoses REFERRAL TO Outpatient Referral Routine Shoulder pain, Ordere d: ORTHOPAEDICS right 09/25/2010 documented as of this encounter Procedures Procedure Name Priority Date/Time Associated Comments Diagnosis DIAGNOSTIC RADIOLOGY 10/01/2010 10:18 PM Results for this SCAN EDT procedure are i n the results section. documented in this encounter Results SCAN DOC: DIAGNOSTIC RADIOLOGY (10/01/2010 10:18 PM EDT) Anatomical Region Laterality Modality Other Narrative 10/01/2010 10:18 PM EDT Procedure Note Provider, Scanning - 10/01/2010 10:18 PM EDT Scanning Provider MEDIA MGR SCAN EXT ORDR/RSLT MRI shoulder WO contrast (09/27/2010 11:40 AM EDT) Anatomical Region Laterality Modality Shoulder Magnetic Resonance Specimen (Source) Anatomical Collection Method Collection Time Re ceived Time Location / / Volume Laterality 09/27/2010 11:40 AM EDT Impressions 09/29/2010 5:29 PM EDT IMPRESSION: 1. Partial thickness undersurface defec t in the rotator cuff insertion consistent with previous debridement of a high grade partial thickness tear. I do not see a full thickness tear. ?? 2. Subacromial decompression without pos toperative fracture or other complication. Narrative 09/29/2010 5:29 PM EDT MRI OF THE RIGHT SHOULDER, 09/27/10: CLINICAL HISTORY: ??Status post surgery, now presenting with shoulder pain. ?? TECHNIQUE: ??Routine shoulder MR images were acquired. ?? COMPARISON: ??X-ray dated 09/25/10 and a n MRI scan of the right shoulder performed on 04/05/08. ?? FINDINGS: ??There is a surgical defect i n the undersurface of the acromion consistent with previous subacromial dec ompression. No fracture is identified. AC joint arthropathy is present but ther e are no large osteophytes narrowing the rotator cuff outlet. Fluid is presen t in the subdeltoid bursa. There is a focal area of thinning of the rotator cu ff at the insertion, approximately 5 mm posterior to the rotator interval. This partial thickness articular surface defect is consistent with the patient's history of debridement of an earlier partial thickness tear. I believe the ou ter surface of the rotator cuff remains intact. I do not see a full thickness te ar. There is no muscular atrophy. The long head of the biceps tendon is nondis placed and is normal in appearance. I do not see a tear. ?? At the glenohumeral joint, the posterior -superior aspect of the labrum is blunted and deformed most consistent wit h degenerative deformity. I do not see a focal defect in the articular cartilag e or obvious acute tear of the labrum. ?? Procedure Note Juanjo Gonsales MD - 09/29/2010Forma tting of this note might be different from the original. MRI OF THE RIGHT SHOULDER, 09/27/10: CLINICAL HISTORY: Status post surgery, n ow presenting with shoulder pain. TECHNIQUE: Routine shoulder MR images we re acquired. COMPARISON: X-ray dated 09/25/10 and an MRI scan of the right shoulder performed on 04/05/08. FINDINGS: There is a surgical defect in the undersurface of the acromion consistent with previous subacromial dec ompression. No fracture is identified. AC joint arthropathy is present but ther e are no large osteophytes narrowing the rotator cuff outlet. Fluid is presen t in the subdeltoid bursa. There is a focal area of thinning of the rotator cu ff at the insertion, approximately 5 mm posterior to the rotator interval. This partial thickness articular surface defect is consistent with the patient's history of debridement of an earlier partial thickness tear. I believe the ou ter surface of the rotator cuff remains intact. I do not see a full thickness te ar. There is no muscular atrophy. The long head of the biceps tendon is nondis placed and is normal in appearance. I do not see a tear. At the glenohumeral joint, the posterior -superior aspect of the labrum is blunted and deformed most consistent wit h degenerative deformity. I do not see a focal defect in the articular cartilag e or obvious acute tear of the labrum. IMPRESSION IMPRESSION: 1. Partial thickness undersurface defec t in the rotator cuff insertion consistent with previous debridement of a high grade partial thickness tear. I do not see a full thickness tear. 2. Subacromial decompression without pos toperative fracture or other complication. Ron Us MD IMG MRI ORDERABLES documented in this encounter Visit Diagnoses Diagnosis Shoulder pain, right - Primary Pain in joint, shoulder region Shoulder pain, right Pain in joint, shoulder region documented in this encounter Care Teams Solvent Plant Operator Relationship Specialty Start Date End Date Michela Stevenson APRN PCP - General 04/29/10 06/07/16 documented as of this encounter
--- OUTSIDE RECORDS SUMMARY | 2022-05-06 08:23 | XMS_ITS | Encounter Summary ---
:1960 [place] [address] Care Team Providers Name Role Phone Michela Stevenson [place] Primary Care Provider Encounter Details Date Type Department Care Team Description 10/16/2010 Hospital Encounter [place] [address] Social History Tobacco Use Types Packs/Day [...] Comme nts NM BONE SCAN WHOLE Routine 10/16/2010 1:10 PM Res ults for this BODY EDT procedure are i n the results section. documented in this encounter Results NM WHOLE BODY BONE SCAN (10/16/2010 1:10 PM EDT) Anatomical Region Laterality Modality Other Specimen (Source) Anatomical Collection Method Collection Time Re ceived Time Location / / Volume Laterality 10/16/2010 1:10 PM EDT Impressions 10/16/2010 3:37 PM EDT IMPRESSION: ??No evidence for osseous me tastasis. Narrative 10/16/2010 3:37 PM EDT EXAMINATION: ??WHOLE BODY BONE SCAN: ??0 10/16/2010. CLINICAL HISTORY: ??Breast cancer and co mplaints of pain in the right rib region. ?? COMPARISON: ??Whole body bone scan, 09/05. PROCEDURE: ??Approximately 3 hours follo wing IV administration of 24.7 mCi of technetium-99m MDP, anterior and posteri or projection images of the body were obtained. ?? FINDINGS: ??Again seen are degenerative changes in the lower lumbar spine, stable in appearance compared to the imani or study. ??Bilateral knee prostheses are present with nonspecific periprosthe tic activity, stable in appearance. ??No other significant osseous abnormalities are identified. ??Specifically, there is normal activity in the bilateral anterio r and posterior rib cage. ?? Procedure Note Ricardo Erickson MD - 10/16/2010Formatti ng of this note might be different from the original. EXAMINATION: WHOLE BODY BONE SCAN: 10/16. CLINICAL HISTORY: Breast cancer and comp laints of pain in the right rib region. COMPARISON: Whole body bone scan, 2009. PROCEDURE: Approximately 3 hours followi ng IV administration of 24.7 mCi of technetium-99m MDP, anterior and posteri or projection images of the body were obtained. FINDINGS: Again seen are degenerative ch anges in the lower lumbar spine, stable in appearance compared to the imani or study. Bilateral knee prostheses are present with nonspecific periprosthe tic activity, stable in appearance. No other significant osseous abnormalities are identified. Specifically, there is normal activity in the bilateral anterio r and posterior rib cage. IMPRESSION IMPRESSION: No evidence for osseous meta stasis. Fadi Contreras MD IMG NM ORDERABLES documented in this encounter Visit Diagnoses Not on filedocumented in this encounter Care Teams Torts Law Professor Relationship Specialty Start Date End Date Michela Stevenson APRN PCP - General 04/29/10 06/07/16 documented as of this encounter
--- OUTSIDE RECORDS SUMMARY | 2022-05-06 08:23 | XMS_ITS | Encounter Summary ---
:1960 Author Organization [facility] [place] [address] Care Team Providers Name Role Phone Michela Stevenson APRN Primary Care Provider Encounter Details Date Type Department Care Team Description 06/19/2010 Hospital [place] [address] Social History Tobacco Use Types Packs/Day Years Used Date Smoking Tobacco: Never Assessed Sex Assigned at Date Recorded Not on file documented as of this encounter Plan of Treatment Not on filedocumented as of this encounter Visit Diagnoses Not on filedocumented in this encounter Care Teams Joiner Relationship Specialty Start Date End Date Michela Stevenson APRN PCP - General 04/29/10 06/07/16 documented as of this encounter
--- OUTSIDE RECORDS SUMMARY | 2022-05-06 08:23 | XMS_ITS | Encounter Summary ---
:1960 Author Organization [facility] [place] [address] Care Team Providers Name Role Phone Michela Stevenson APRN Primary Care Provider Encounter Details Date Type Department Care Team Description 06/19/[address] Scan at [facility], [place] [address] Social History Tobacco Use Types Packs/Day Years Used Date Smoking Tobacco: Never Assessed Sex Assigned at Date Recorded Not on file documented as of this encounter Plan of Treatment Not on filedocumented as of this encounter Visit Diagnoses Not on filedocumented in this encounter Care Teams Residential Monitor Relationship Specialty Start Date End Date Michela Stevenson APRN PCP - General 04/29/10 06/07/16 documented as of this encounter
--- OUTSIDE RECORDS SUMMARY | 2022-05-06 08:23 | XMS_ITS | Encounter Summary ---
:1960 Author Organization [facility] [place] [address] Care Team Providers Name Role Phone Michela Stevenson Jaden FIGUEROA Primary Care Provider Reason for Visit Reason Comments Pain rib below right breast Encounter Details Date Type Department Care Team Description 09/26/2010 Follow-Up Radiation Oncology at [place], Wilfredo rBandt APRN Breast ca (Primary Dx) [address] [place] [address] [id number] (Wo rk) Social History Tobacco Use Types Packs/Day Years Used Date Smoking Tobacco: Former Cigarettes 1 37 Quit : 05/21/2010 Alcohol Use Standard Drinks/Week Comments No 0 (1 standard drink = 0.6 oz pure alcoho l) Sex Assigned at Date Recorded Not on file documented as of this encounter Last Filed Vital Signs Vital Sign Reading Time Taken Comments Blood Pressure 121/81 09/26/2010 10:38 AM EDT Pulse 70 09/26/2010 10:38 AM EDT Temperature 37 ??C (98.6 ??F) 09/26/2010 10:38 AM EDT Respiratory Rate 18 09/26/2010 10:38 AM EDT Oxygen Saturation 98% 09/26/2010 10:38 AM EDT Inhaled Oxygen Concentration - - Weight 102.5 kg (226 lb) 09/26/2010 10:38 AM EDT Height 161.2 cm (5' 3.48) 09/26/2010 10:38 AM EDT Body Mass Index 39.43 09/26/2010 10:38 AM EDT documented in this encounter Progress Notes Domonique James, ORNAMENTAL METAL WORKER - 09/26/2010 2:23 PM EDT Subjective: Patient ID: Shraddha Chavez is a 50 y.o. female. Mrs Chavez is being seen in radiation oncology for evaluation of new pain involving her right lower rib that has been present for several days and does not resolve. HPI: Shraddha is a delightful 49-year-old woman who, on routine screening mammography performed in August of 2009, showed a spiculated mass deep in the central right breast. This led to an ultrasound-guided biopsy on 09/09/2009 which was positive for invasive cancer. Subsequently, she had a breast MRI thatshowed a small secondary mass which turned out [...] She is on hormone therapy with femara. Interim History: On 08/15/2010 Ms Chavez was treated with SRS to her left temporal lobe. She was diagnosed with an AVM after experiencing severe headaches as per MRI done 06/19/2010. She reports that herheadaches are less intense. She does continue with some lightheadedness. Her concern today is pain involving her right lower rib. She reports pain if she wears a bra or if there is any pressure on the rib. The discomfort has been there since she completed radiation therapy for her breast cancer. She denies injuring herself. She denies shortness of breath and cough. The pain is 9/10 with touching. Ms Chavez has had edema involving her right breast since XRT. She was seen by Gaby LIMA and wastaught how to do modified lymphatic drainage. She has not required a compression bra. She has no lymphedema involving her right arm or hand. Review of Systems Constitutional: Negative. HENT: Positive for neck stiffness. Negative for hearing loss, facial swelling and neck pain. Neck discomfort that is positional Eyes: Negative. Respiratory: Negative. Cardiovascular: Negative. Gastrointestinal: Negative. Genitourinary: Negative. Musculoskeletal: Positive for back pain and arthralgias. Negative for myalgias, joint swelling and gait problem. Skin: Negative for color change, pallor, rash and wound. Neurological: Positive for speech difficulty, light-headedness and headaches. Negative for tremors, seizures, syncope, facial asymmetry, weakness and numbness. Since treatment for AVM reports that she is occ light headed. Headache are less severe. She occ hasword finding difficulty. Hematological: Negative for adenopathy. Does not bruise/bleed easily. Psychiatric/Behavioral: Negative for behavioral problems, confusion, decreased concentration and agitation. The patient is nervous/anxious. The patient is not hyperactive. Patient relates fear that her cancer will recur Objective: Physical Exam Constitutional: She is oriented to person, place, and time. She appears well- developed and well-nourished. No distress. HENT: Head: Normocephalic. Right Ear: External ear normal. Left Ear: External ear normal. Nose: Nose normal. Mouth/Throat: Oropharynx is clear and moist. No oropharyngeal exudate. 1 cm indentation right mu-ism area site of pin for head frame used at time of SRS Eyes: Conjunctivae and EOM are normal. Pupils are equal, round, and reactive to light. Right eye exhibits no discharge. Left eye exhibits no discharge. No scleral icterus. Neck: Normal range of motion. Neck supple. No tracheal deviation present. No thyromegaly present. Cardiovascular: Normal rate, regular rhythm and normal heart sounds. Exam reveals no gallop and no friction rub. No murmur heard. Pulmonary/Chest: Effort normal and breath sounds normal. No stridor. No respiratory distress. She has no wheezes. She has no rales. She exhibits tenderness. Tenderness to mild palpation of lowest right rib. No bruising, no masses, no lesion Abdominal: Soft. Bowel sounds are normal. She [...] is normal. Judgment and thought content normal. Breast: Very mild edema right breast with sl redness. No breast tenderness, no nipple discharge, sl hyperpigmentation of breast. No lymphedema right arm or hand. No lesion involving breast or inferior to breast. Assessment and Plan: No problem-specific visit notes found for this encounter. Chest x-ray report was received and reviewed --it was negative for any pathology. There is no clear evidence of etiology of this pain. Order done for patient to have chest x-ray to image ribs and to determine if there is any pathology. Patient continues with occ ibuprofen for pain. 09/26/2010: 3:PM--chest x-ray normal. documented in this encounter Procedure Notes Provider, Scanning - 10/10/2010 12:23 PM EDTAssociated Order(s): SCAN DOC: LAB documented in this encounter Plan of Treatment Scheduled Orders Name Type Priority Associated Diagnoses Order S chedule XR chest routine PA & Imaging Routine Breast ca Ordere d: 09/26/2010 lateral documented as of this encounter Procedures Procedure Name Priority Date/Time Associated Diagnosis Comme nts LAB SCAN 10/10/2010 12:23 PM Results for this EDT procedure are i n the results section . documented in this encounter Results SCAN DOC: LAB (10/10/2010 12:23 PM EDT) Narrative 10/10/2010 12:23 PM EDT Procedure Note Provider, Scanning - 10/10/2010 12:23 PM EDT Scanning Provider MEDIA MGR SCAN EXT ORDR/RSLT documented in this encounter Visit Diagnoses Diagnosis Breast CA - Primary Malignant neoplasm of breast (female), u nspecified site documented in this encounter Care Teams Bridges And Buildings Supervisor Relationship Specialty Start Date End Date Michela Stevenson APRN PCP - General 04/29/10 06/07/16 documented as of this encounter
--- OUTSIDE RECORDS SUMMARY | 2022-05-06 08:23 | XMS_ITS | Encounter Summary ---
:1960 Author Organization [facility] Address [address] [place] [address] Care Team Providers Name Role Phone Michela Stevenson CAR[place] Primary Care Provider Reason for Visit Reason Comments Flashes Of Light Pt complains of seeing fire flies in OS when in a dark environment, sudden onset ab out 3 weeks ago. Has not seen them for the last 3 days. Pt had two episodes last week of sudden visual disturbance when lyin g down, I could see things moving that were not moving, pt fe lt nauseated. Spots and/or Floaters Pt complains of seeing 3 salvatore aters in OS, first noticed them after her Sx about 3 months ago. Encounter Details Date Type Department Care Team Description 11/07/2010 Office Visit Ophthalmology at [facility] C Jadon Vences, Headache (Primary Dx); [facility] [place] Blurry vision; [address] [facility] [place] [address] CENTER [phone] OPHTHALMOLOGY DEPT. 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 She has minimal cataracts and deep optic nerve head drusen which may be contributing to her visual field defect. However, her kiran have changed and improved since her last VF with some unreliability on the test parameters. She has a repeat MR 6/ in follow up for her AVM. Reassurance given. Recommend monitoring her with visual kiran. One year or prn. documented in this encounter Nursing Notes 11/07/2010 2:30 PM EDT >> JADON VENCES MD WedNov 07, 2010 4:03 PM Patient is seeing fireflies in the left eye. Finds it difficult to adjust with left eye and this makes her nauseated. Patient feels her eyesight gets more blurred which affects her driving. She can make out where she's going. Feels her glasses are on when they have been off for hours. Normal headaches only, no associations. No eye pain. Ghosting images. Patient reports starbursts OU. Glasses needs started 30 years ago. Patient had radiosurgery for left temporal arteriovenous malformation early 2010. >> RAMA CABALLERO WedNov 07, 2010 2:48 PM Description:Patient presents with: Flashes Of Light - Pt complains of seeing fireflies in OS when in a dark environment, sudden onset about 3 weeks ago. Has not seen them for the last 3 days. Pt had two episodes last week of sudden visual disturbance when lying down, I could see things moving that were not moving, pt felt nauseated. Spots and/or Floaters - Pt complains of seeing 3 floaters in OS, first noticed them after her Sx about 3 months ago. Location: left eye Duration: 6 months Rapidity of Onset:sudden Severity: Condition:Worsening Pain:8-10 Associated Symptoms: Pt has constant HAs. documented in this encounter Plan of Treatment Not on filedocumented as of this encounter Procedures Procedure Name Priority Date/Time Associated Comments Diagnosis AUTOMATED VISUAL Routine 11/07/2010 3:57 PM Headache Resul ts for this FIELD - INTERMEDIATE EDT procedu re are in - OU- BOTH EYES the results section. documented in this encounter Results AUTOMATED VISUAL FIELD - INTERMEDIATE - OU- BOTH EYES (11/07/2010 3:57 PM EDT) Anatomical Region Laterality Modality Other Narrative 11/07/2010 3:57 PM EDT OS: poor reliability. ??Inferior and nasal depression OD: patchy central and inferior depressi on Procedure Note Jadon Vences MD - 11/07/2010Formattin g of this note might be different from the original. OS: poor reliability. Inferior and nasal depression OD: patchy central and inferior depressi on Jadon Vences MD OPHTHALMOLOGY SERVICES ORDER ERICKA documented in this encounter Visit Diagnoses Diagnosis Headache(784.0) - Primary Headache Blurry vision Other specified visual disturbances Visual field defect Visual field defect, unspecified documented in this encounter Care Teams Stereoplotter Operator Relationship Specialty Start Date End Date Michela Stevenson APRN PCP - General 04/29/10 06/07/16 documented as of this encounter
--- OUTSIDE RECORDS SUMMARY | 2022-05-06 08:23 | XMS_ITS | Encounter Summary ---
:1960 Author Organization [facility] [place] [address] Care Team Providers Name Role Phone Michela Stevenson APRN Primary Care Provider Encounter Details Date Type Department Care Team Description 08/12/2010 Hospital Encounter [place]iation [place] [address] Social History Tobacco Use Types Packs/Day Years Used Date Smoking Tobacco: Never Assessed Sex Assigned at Date Recorded Not on file documented as of this encounter Medications at Time of Discharge Medication Sig Dispensed Refills Start Date End Date letrozole (FEMARA) 2.5 mg 2.5 MG = 1 0 08/12/2010 05/11/2011 tablet Tablet(s), PO, Once daily dexamethasone (DECADRON) 2 2 MG = 1 0 1 10/21/2010 mg tablet Tablet(s), PO, Once daily x 5 days documented as of this encounter Plan of Treatment Not on filedocumented as of this encounter Visit Diagnoses Not on filedocumented in this encounter Care Teams Construction Representative Relationship Specialty Start Date End Date Michela Stevenson APRN PCP - General 04/29/10 06/07/16 documented as of this encounter
--- OUTSIDE RECORDS SUMMARY | 2022-05-06 08:23 | XMS_ITS | Encounter Summary ---
:1960 [place] [address] Care Team Providers Name Role Phone Michela Stevenson CAR[place] Primary Care Provider Encounter Details Date Type Department Care Team Description 06/19/[address] [facility] Gregory singh MD [facility] Sully roberts [place] [address] [place] [address] [phone] (Wo rk) Social History Tobacco Use Types Packs/Day Years Used Date Smoking Tobacco: Never Assessed Sex Assigned at Date Recorded Not on file documented as of this encounter Plan of Treatment Not on filedocumented as of this encounter Procedures Procedure Name Priority Date/Time Associated Comments Diagnosis DIFFERENTIAL, STAT 06/19/2010 12:23 Results fo r this AUTOMATED PM EST procedure are i n the results section. APTT Routine 06/19/2010 12:23 Results for this PM EST procedure are i n the results section. PROTHROMBIN TIME Routine 06/19/2010 12:23 Results for this PM EST procedure are i n the results section. CBC (WITH DIFF) STAT 06/19/2010 12:23 Results for this PM EST procedure are i n the results section. COMPREHENSIVE STAT 06/19/2010 12:23 Results fo r this METABOLIC PANEL PM EST procedure ar e in (NON-FASTING) the results section. documented in this encounter Results (ABNORMAL) COMPREHENSIVE METABOLIC PANEL (NON-FASTING) (06/19/2010 12:23 PM EST) P athologist Signature Glucose Lvl 93 <=199 mg/dL CERNER MILLENNIUM Comment: Diabetes: >=200 mg/dL plus symp toms BUN 12 8 - 18 mg/dL CERNER MILLENNIUM Creatinine 0.90 0.70 - 1.20 mg/dL CERNER MILL ENNIUM Sodium 137 135 - 145 mmol/L CERNER ROCHELLE NIUM Potassium 4.0 3.5 - 5.0 mmol/L CERNER ROCHELLE NIUM Comment: Please note: ??Patients with WBC >100,00 0 may have falsely elevated Potassium levels. ??For accurate Potassium quantif ication in these patients send serum separator tube (gold top) for subsequent determinations. ??Contact the Clinical Chemistry Laboratory if there are any qu estions. Chloride 101 98 - 107 mmol/L CERNER MILLENN IUM CO2 24 22 - 31 mmol/L CERNER MILLENNI UM Anion Gap 12 5 - 15 mmol/L CERNER MILLENNIU M Calcium 9.9 8.5 - 10.5 mg/dL CERNER ROCHELLE NIUM Total Protein 7.7 6.4 - 8.3 gm/dL CERNER MIL LENNIUM Albumin 4.7 3.2 - 5.2 gm/dL CERNER MILLENN IUM AST 36 (H) 0 - 30 unit/L CERNER MILLENNIU M ALT 50 (H) 0 - 30 unit/L CERNER MILLENNIU M Alk Phos 87 40 - 104 unit/L CERNER MILLENN IUM Total Bilirubin 0.5 0.2 - 1.3 mg/dL CERNER M ILLENNIUM Bili, Direct 0.2 0.0 - 0.3 mg/dL CERNER MILL ENNIUM Estimated GFR >60 >=60 CERNER MILLENNIU M Comment: The National Kidney Disease Education Pr ogram (NKDEP) has recommended all laboratories report estimated GFR (eGFR) along with plasma creatinine measurements to assist you with recognit ion of early kidney disease. Caveats: ??Plasma creatinine should be a t steady-state (unchanged within the past week). ??Patient age > = 18 years, and for Americans multiply eGFR by 1.2. At present, NKDEP does NOT recommend usi ng the MDRD equation for drug dosing purposes and pharmacists should continue to use their current dosing methods. In addition, numerical eGFR values great er than 60 ml/min/1.73 square meters should be treated as > 60, and not an ex act number due to greater inaccuracies at these higher values. Per NKDEP, they classify normal renal function as any GFR >60ml/min/1.73 square meters; chronic kidney disease wh en GFR <60, and renal failure when GFR <15. ??This calculation may not be valid for patients with atypical muscle mass (very lean or obese), acute renal failur e, and in patients with diabetic kidney disease. References: http://nkdep.nih.gov/resources/NKDEP_Sug gestn4Labs_0606_508.pdf http://www.kidney.org/professionals/kls/ pdf/faq_gfr.pdf Specimen Anatomical Collection Method Collection Time Receive d Time (Source) Location / / Volume Laterality Blood specimen 06/19/2010 12:23 1 (specimen) PM EST 12:30 PM EST Gregory Tadeo MD CHEMISTRY ORDERABLES Performing Organization Address City/[facility]/ZIP Code Phon e Number [address] [facility] M[facility] (ABNORMAL) APTT (06/19/2010 12:23 PM EST) P athologist Signature PTT 24 (L) 25 - 37 sec CERNER MILLENNIUM Comment: Recommended therapeutic PTT range for fu ll dose unfractionated heparin is 80-114 seconds. Specimen Anatomical Collection Method Collection Time Receive d Time (Source) Location / / Volume Laterality Blood specimen 06/19/2010 12:23 1 (specimen) PM EST 12:30 PM EST Gregory Tadeo MD HEMATOLOGY ORDERABLES Performing Organization Address City/[facility]/[place] [address] [facility] MILLENNIUM PROTIME-INR (06/19/2010 12:23 PM EST) P athologist Signature PT 12.7 12.3 - 14.7 CERNER sec MILLENNIUM Comment: [facility] Transfusion Committee Guidelines: I NR less than 2.0, PTT less than OR equal to 43.5 seconds, or Fibrinogen gre ater than or equal to 100 mg/dl indicate adequate procoagulant activity for hemostasis in patients without underlying bleeding disorders. INR 0.9 0.9 - 1.1 CERNER MILLENNIUM Specimen Anatomical Collection Method Collection Time Receive d Time (Source) Location / / Volume Laterality Blood specimen 06/19/2010 12:23 1 (specimen) PM EST 12:30 PM EST Gergory Tadeo MD HEMATOLOGY ORDERABLES Performing Organization Address City/State/ZIP Code Phon e Number [place] [phone] CERNER MILLENNIUM REFLEX LAB-A-DIFF (06/19/2010 12:23 PM EST) P athologist Signature Neutrophils % 56.5 34.0 - CERNER 71.0 % MILLENNIUM Neutr Abs (ANC) 3.28 1.50 - CERNER 6.30 MILLENNIUM x10(3)/mcL Lymphocytes % 36.3 19.0 - CERNER 53.0 % MILLENNIUM Lymphocytes Abs 2.1 1.0 - 3.6 CERNER x10(3)/mcL MILLENNIUM Monocytes % 5.2 4.0 - 13.0 CERNER % MILLENNIUM Monocyte Abs 0.3 0.2 - 1.0 CERNER x10(3)/mcL MILLENNIUM Eosinophils % 1.6 0.0 - 7.0 CERNER % MILLENNIUM Eosinophils Abs 0.1 0.0 - 0.5 CERNER x10(3)/mcL MILLENNIUM Basophils % 0.2 0.0 - 2.0 CERNER % MILLENNIUM Basophils Abs 0.0 0.0 - 0.2 CERNER x10(3)/mcL MILLENNIUM Immature Gran % 0.20 0.00 - CERNER 0.66 % MILLENNIUM Comment: Immature granulocytes(IG's)percentage an d absolute count will include metamyelocytes, myelocytes, and promyelo cytes. Blood smears from CBCs yielding IG's will be scanned manually for concnoreen danmarco. If this scan disagrees with the automated IG or if promyelocytes are not ed, a manual differential will be performed.v Sisi Gran Abs 0.01 0.00 - 0.05 x10(3)/mcL CER NER MILLENNIUM Specimen Anatomical Collection Method Collection Time Receive d Time (Source) Location / / Volume Laterality Blood specimen 06/19/2010 12:23 1 (specimen) PM EST 12:30 PM EST Gregory Tadeo MD HEMATOLOGY ORDERABLES Performing Organization Address City/[facility]/[place] [address] CERNER MILLENNIUM CBC (06/19/2010 12:23 PM EST) P athologist Signature WBC 5.8 4.0 - 10.0 CERNER x10(3)/mcL MILLENNIUM RBC 4.66 3.93 - 5.22 CERNER x10(6)/mcL MILLENNIUM Hemoglobin 14.3 11.2 - 15.7 CERNER gm/dL MILLENNIUM Hematocrit 41.2 34.0 - 45.0 CERNER % MILLENNIUM MCV 88.4 79.0 - 94.0 CERNER fL MILLENNIUM MCH 30.7 26.6 - 32.2 CERNER pg MILLENNIUM MCHC 34.7 32.0 - 36.5 CERNER gm/dL MILLENNIUM Platelets 248 145 - 370 CERNER x10(3)/mcL MILLENNIUM RDWSD 44.6 35.0 - 46.0 CERNER fL MILLENNIUM RDWCV 13.8 10.9 - 14.4 CERNER % MILLENNIUM MPV 9.1 9.0 - 12.0 CERNER fL MILLENNIUM Specimen Anatomical Collection Method Collection Time Receive d Time (Source) Location / / Volume Laterality Blood specimen 06/19/2010 12:23 1 (specimen) PM EST 12:30 PM EST Gregory Tadeo MD HEMATOLOGY ORDERABLES Performing Organization Address City/[facility]/ZIP Code Phon e Number [address] CERNER MILLENNIUM documented in this encounter Visit Diagnoses Not on filedocumented in this encounter Care Teams Crossing Guard Relationship Specialty Start Date End Date Michela Stevenson APRN PCP - General 04/29/10 06/07/16 documented as of this encounter
--- OUTSIDE RECORDS SUMMARY | 2022-05-06 08:23 | XMS_ITS | Encounter Summary ---
:1960 Author Organization [facility] [address] Care Team Providers Name Role Phone Michela Stevenson [place] Primary Care Provider Encounter Details Date Type Department Care Team Description 09/24/2010 Orders Only Orthopaedics at [facility] Ron Us, Hand pain ([facility] MD Dx) [place] [address] ORTHOPAEDIC SURGERY [place], [place] [address] Social History Tobacco Use Types Packs/Day Years Used Date Smoking Tobacco: Never Assessed Sex Assigned at Date Recorded Not on file documented as of this encounter Plan of Treatment Not on filedocumented as of this encounter Procedures Procedure Name Priority Date/Time Associated Diagnosis Comme nts XR SHOULDER Routine 09/25/2010 12:12 PM Pain in limb Results for this EDT procedure are i n the results section . documented in this encounter Results XR SHOULDER (09/25/2010 12:12 PM EDT) Anatomical Region Laterality Modality Shoulder N/A Radiographic Imaging Specimen (Source) Anatomical Collection Method Collection Time Re ceived Time Location / / Volume Laterality 09/25/2010 12:12 PM EDT Impressions 09/26/2010 9:37 AM EDT IMPRESSION: ?? AC joint arthropathy without change. RIGHT HAND: ?? HISTORY: ??Pain. COMPARISON STUDY: ??None. FINDINGS: ??Right first MCP joint osteoa rthritis, characterized by small osteophyte formation. ??The bone mineral ization is normal. ??No erosions or fracture or dislocation. IMPRESSION: ?? Right first MCP joint osteoarthritis. Narrative 09/26/2010 9:37 AM EDT RIGHT SHOULDER, FOUR IMAGES, AND RIGHT H AND, THREE IMAGES, 09/25/10: ?? RIGHT SHOULDER: ?? CLINICAL INDICATION: pain COMPARISON STUDY: ??05/07/09. FINDINGS: ??Right AC joint arthropathy. ??No periarticular fracture. ??The glenohumeral alignment is normal. Procedure Note Thuy Landrum MD - 09/26/2010Formatt ing of this note might be different from the original. RIGHT SHOULDER, FOUR IMAGES, AND RIGHT H AND, THREE IMAGES, 09/25/10: RIGHT SHOULDER: CLINICAL INDICATION: pain COMPARISON STUDY: 05/07/09. FINDINGS: Right AC joint arthropathy. No periarticular fracture. The glenohumeral alignment is normal. IMPRESSION IMPRESSION: AC joint arthropathy without change. RIGHT HAND: HISTORY: Pain. COMPARISON STUDY: None. FINDINGS: Right first MCP joint osteoart hritis, characterized by small osteophyte formation. The bone mineraliz ation is normal. No erosions or fracture or dislocation. IMPRESSION: Right first MCP joint osteoarthritis. Ron Us MD IMG DX ORDERABLES documented in this encounter Visit Diagnoses Diagnosis Hand pain - Primary Pain in limb documented in this encounter Care Teams Die Setter Relationship Specialty Start Date End Date Michela Stevenson APRN PCP - General 04/29/10 06/07/16 documented as of this encounter
--- OUTSIDE RECORDS SUMMARY | 2022-05-06 08:23 | XMS_ITS | Encounter Summary ---
:1960 Author Organization [facility] [place] [address] Care Team Providers Name Role Phone Michela Stevenson CAR[place] Primary Care Provider Reason for Visit Reason Comments Radiation Follow-up Encounter Details Date Type Department Care Team Description 10/30/2010 Office Visit Radiation Oncology at Domonique James Bre ast ca (Primary [facility] CODE ENFORCEMENT OFFICER Dx) [address] [place], [place] RADIATION ONCOL OGY [address] [place], [place] [phone] (Wo rk) Social History Tobacco Use Types Packs/Day Years Used Date Smoking Tobacco: Former Cigarettes 1 37 Quit : 05/21/2010 Alcohol Use Standard Drinks/Week Comments No 0 (1 standard drink = 0.6 oz pure alcoho l) Sex Assigned at Date Recorded Not on file documented as of this encounter Progress Notes Mary Rico - 01/02/2011 9:39 AM EDT Domonique James APRN - 10/30/2010 2:27 PM EDT Mrs Chavez is in radiation oncology today as part of a [facility] mitch to review a Survivor Care Plan ie. Journey Forward. An hour was spent with patient to review the care plan. The care plan will be scanned into e D-H documented in this encounter Plan of Treatment Not on filedocumented as of this encounter Visit Diagnoses Diagnosis Breast CA - Primary Malignant neoplasm of breast (female), u nspecified site documented in this encounter Care Teams Stone Unloader Relationship Specialty Start Date End Date Michela Stevenson APRN PCP - General 04/29/10 06/07/16 documented as of this encounter
--- OUTSIDE RECORDS SUMMARY | 2022-05-06 08:23 | XMS_ITS | Encounter Summary ---
:1960 Author Organization [facility] [place] [address] Care Team Providers Name Role Phone Michela Stevenson CAR[place] Primary Care Provider Encounter Details Date Type Department Care Team Description 09/27/2010 Hospital Encounter MRI at [facility], DR HILTON Shoulder pain, right [facility] Ron Us MD [facility] [place] [address] [place] [address] Social History Tobacco Use Types Packs/Day Years [...] 5 days documented as of this encounter Miscellaneous Notes Miscellaneous - Provider, Scanning - 10/30/2010 2:00 PM EDT documented in this encounter Plan of Treatment Not on filedocumented as of this encounter Procedures Procedure Name Priority Date/Time Associated Diagnosis Comme nts MRI SHOULDER WO Routine 09/27/2010 11:40 AM Shoulder pain, rig ht Results for this CONTRAST EDT procedure are i n the results section. documented in this encounter Results MRI shoulder WO contrast (09/27/2010 11:40 AM [...] encounter Visit Diagnoses Diagnosis Shoulder pain, right Pain in joint, shoulder region documented in this encounter Care Teams Booster Plant Operator Relationship Specialty Start Date End Date Michela Stevenson APRN PCP - General 04/29/10 06/07/16 documented as of this encounter
--- OUTSIDE RECORDS SUMMARY | 2022-05-06 08:23 | XMS_ITS | Encounter Summary ---
:1960 Author Organization [facility] Address [facility] [place] [address] Care Team Providers Name Role Phone Michela Stevenson APRN Primary Care Provider Encounter Details Date Type Department Care Team Description 10/07/2010 Orders Only Radiation Oncology at [place], Lynnette Latham VM (fany Alex MD malformation) (Primary [facility] Dx) [facility] [place] [address] [place] [address] [phone] Social History Tobacco Use Types Packs/Day Years [...] documented in this encounter Care Teams Material Planning Analyst Relationship Specialty Start Date End Date Michela Stevenson APRN PCP - General 04/29/10 06/07/16 documented as of this encounter
--- OUTSIDE RECORDS SUMMARY | 2022-05-06 08:23 | XMS_ITS | Encounter Summary ---
:1960 Author Organization [facility] [place] [address] Care Team Providers Name Role Phone Michela Stevenson Jaden FIGUEROA Primary Care Provider Reason for Visit Reason Onset Date Comments Results 10/14/2010 lab work Encounter Details Date Type Department Care Team Description 10/14/2010 Telephone Radiation Oncology at Wilfredo James APRN Results (lab work) [address] [place] [phone] (Wo rk) Social History Tobacco Use Types Packs/Day Years Used Date Smoking Tobacco: Former Cigarettes 1 37 Quit : 05/21/2010 Alcohol Use Standard Drinks/Week Comments No 0 (1 standard drink = 0.6 oz pure alcoho l) Sex Assigned at Date Recorded Not on file documented as of this encounter Miscellaneous Notes Telephone Encounter - Domonique James APRN - 10/14/2010 12:55 PM EDT Call was made to patient to report on the CBC and CMP that was done 10/10. All results were normal andpatient was so informed. documented in this encounter Plan of Treatment Not on filedocumented as of this encounter Visit Diagnoses Not on filedocumented in this encounter Care Teams Butter Maker Relationship Specialty Start Date End Date Michela Stevenson APRN PCP - General 04/29/10 06/07/16 documented as of this encounter
--- OUTSIDE RECORDS SUMMARY | 2022-05-06 08:23 | XMS_ITS | Encounter Summary ---
:1960 Author Organization [facility] [place] [address] Care Team Providers Name Role Phone Michela Stevenson Jaden FIGUEROA Primary Care Provider Reason for Visit Reason Comments Pain breast and rib Encounter Details Date Type Department Care Team Description 10/10/2010 Follow-Up Radiation Oncology at [place], Wilfredo Brandt APRN Mastitis (Primary Dx); [address] Breast cancer [address] [place] [address] [place] [phone] (Wo rk) Social History Tobacco Use Types Packs/Day Years Used Date Smoking Tobacco: Former Cigarettes 1 37 Quit : 05/21/2010 Alcohol Use Standard Drinks/Week Comments No 0 (1 standard drink = 0.6 oz pure alcoho l) Sex Assigned at Date Recorded Not on file documented as of this encounter Last Filed Vital Signs Vital Sign Reading Time Taken Comments Blood Pressure 117/78 10/10/2010 9:30 AM EDT Pulse 90 10/10/2010 9:30 AM EDT Temperature - - Respiratory Rate 16 10/10/2010 9:30 AM EDT Oxygen Saturation 96% 10/10/2010 9:30 AM EDT Inhaled Oxygen Concentration - - Weight 105.2 kg (232 lb) 10/10/2010 9:30 AM EDT Height 161.2 cm (5' 3.48) 10/10/2010 9:30 AM EDT Body Mass Index 40.47 10/10/2010 9:30 AM EDT documented in this encounter Progress Notes Domonique James, BROKERAGE COORDINATOR - 10/10/2010 11:03 AM EDT Subjective: Patient ID: Mrs Chavez is a 50 year old woman is being seen in radiation oncology for evaluation of ongoing paininvolving her right lower rib that has not resolved with use of NSAIDS. She is also reporting right breast tenderness and expression again of crystals from her right nipple. HPI: At age 49 Shraddha had a routine screening mammography performed in August of 2009. This showed a spiculated mass deep in the central right breast. This led to an ultrasound-guided biopsy on 09/09/2009which was positive for invasive cancer. Subsequently, she had a breast MRI that showed a small secondary mass which turned out not to be malignant. She underwent a Partial mastectomy on 10/01/2009 on the right and, with Plastic Surgery's assistance, a reduction mammoplasty on the other side. Those havebeen completed, and she has basically healed, although she had a small problem with a seroma . She was treated with four cycles of dose dense AC completed 12/26/2009 and radiation therapy for a total [id number] cGy which was completed on 03/10/2010. She is on hormone therapy with femara. On 08/15/2010 Ms Chavez was treated with SRS to her left temporal lobe. She was diagnosed with an AVMafter experiencing severe headaches as per MRI done 06/19/2010. Interim History: Shraddha reports that she is concerned because the pain involving her right lower ribhas not gone away and appears to be extending. She took ibuprofen up to 800 mg three times a day with no relief. She is also concerned with the fact that she is having increased right breast tenderness. The discomfort is felt with any pressure to her breast. Her pain is 6/10 most of the time. She had some crystals that were expressed from her nipples as previously seen by Dr Martin. Ms Chavez has had edema involving her right breast since XRT. She was seen by Gaby LIMA and wastaught how to do modified lymphatic drainage. She has not required a compression bra. She has no lymphedema involving her right arm or hand. Review of Systems Constitutional: Negative. HENT: Negative for hearing loss, facial swelling and neck pain. Eyes: Negative. Respiratory: Negative. Cardiovascular: Negative. Gastrointestinal: Negative. Genitourinary: Negative. Musculoskeletal: Positive for back pain and arthralgias. Negative for myalgias, joint swelling and gait problem. Skin: Negative for color change, pallor, rash and wound. Neurological: No headache, no speech difficulty, + flickers of light last night that resolved. Negative for tremors, seizures, syncope, facial asymmetry, weakness and numbness. Hematological: Negative for adenopathy. Does not bruise/bleed easily. Psychiatric/Behavioral: Negative for behavioral problems, confusion, decreased concentration and agitation. The patient is nervous/anxious. The patient is not hyperactive. Breast: As noted above Objective: Physical Exam Constitutional: She is oriented to person, place, and time. She appears well- developed and well-nourished. No distress. HENT: Head: Normocephalic. Right Ear: External ear normal. Left Ear: External ear normal. Nose: Nose normal. Mouth/Throat: Oropharynx is clear and moist. No oropharyngeal exudate. 1 cm indentation right zoroastrian area site of pin for head frame [...] wheezes. She has no rales. She exhibits tenderness over the right lower rib. No bruising, no masses, no lesion Breast: Slight erythema to breast with tenderness and mild edema. Musculoskeletal: Normal range of motion. She exhibits no edema and no tenderness. Lymphadenopathy: She has no cervical adenopathy. No axillary adenopathy Neurological: She is alert and oriented to [...] or inferior to breast. Assessment and Plan: Mrs Chavez has breast cancer and appears to have some mild inflammation. We will order cipro for 10 days and reassess. Of concern is the persisting pain to her right lower rib. A bone scan will be ordered. Patient support provided. documented in this encounter Plan of Treatment Scheduled Orders Name Type Priority Associated Diagnoses Order S chedule CBC Lab Routine Breast cancer 06/17/2007 documented as of this encounter Visit Diagnoses Diagnosis Mastitis - Primary Inflammatory disease of breast Breast cancer Malignant neoplasm of breast (female), u nspecified site documented in this encounter Care Teams Mammography Tech Relationship Specialty Start Date End Date Michela Stevenson APRN PCP - General 04/29/10 06/07/16 documented as of this encounter
--- OUTSIDE RECORDS SUMMARY | 2022-05-06 08:23 | XMS_ITS | Encounter Summary ---
:1960 Author Organization [facility] [place] [address] Care Team Providers Name Role Phone Michela Stevenson Jaden FIGUEROA Primary Care Provider Encounter Details Date Type Department Care Team Description 08/12/2010 Hospital Encounter Same Day Program at Chencho Harrington MD [facility] [place] [address] [place] [address] [phone] Social History Tobacco Use Types Packs/Day Years [...] Priority Date/Time Associated Comments Diagnosis DIFFERENTIAL, STAT 08/12/2010 5:54 AM Results for this AUTOMATED EST procedure are i n the results section. CBC (WITH DIFF) STAT 08/12/2010 5:54 AM Result s for this EST procedure are i n the results section. COMPREHENSIVE STAT 08/12/2010 5:54 AM Results for this METABOLIC PANEL EST procedure ar e in (NON-FASTING) the results section. documented in this encounter Results REFLEX LAB-A-DIFF (08/12/2010 5:54 AM EST) P athologist Signature Neutrophils % 66.2 34.0 - CERNER 71.0 % MILLENNIUM Neutr Abs (ANC) 6.11 1.50 - CERNER 6.30 MILLENNIUM x10(3)/mcL Lymphocytes % 27.2 19.0 - CERNER 53.0 % MILLENNIUM Lymphocytes Abs 2.5 1.0 - 3.6 CERNER x10(3)/mcL MILLENNIUM Monocytes % 5.6 4.0 - 13.0 CERNER % MILLENNIUM Monocyte Abs 0.5 0.2 - 1.0 CERNER x10(3)/mcL MILLENNIUM Eosinophils % 0.5 0.0 - 7.0 CERNER % MILLENNIUM Eosinophils Abs 0.1 0.0 - 0.5 CERNER x10(3)/mcL MILLENNIUM Basophils % 0.2 0.0 - 2.0 CERNER % MILLENNIUM Basophils Abs 0.0 0.0 - 0.2 CERNER x10(3)/mcL MILLENNIUM Immature Gran % 0.30 0.00 - CERNER 0.66 % MILLENNIUM Comment: Immature granulocytes(IG's)percentage an d absolute count will include metamyelocytes, myelocytes, and promyelo cytes. Blood smears from CBCs yielding IG's will be scanned manually for concor dance. If this scan disagrees with the automated IG or if promyelocytes are not ed, a manual differential will be performed. Sisi Gran Abs 0.03 0.00 - 0.05 x10(3)/mcL CER NER MILLENNIUM Specimen Anatomical Collection Method Collection Time Receive d Time (Source) Location / / Volume Laterality Blood specimen 08/12/2010 5:54 AM 011 6:05 (specimen) EST AM EST George Harrington MD HEMATOLOGY ORDERABLES Performing Organization Address City/State/[place] [address] CERNER MILLENNIUM CBC (WITH DIFF) (08/12/2010 5:54 AM EST) athologist Signature WBC 9.3 4.0 - 10.0 CERNER x10(3)/mcL MILLENNIUM RBC 4.70 3.93 - 5.22 CERNER x10(6)/mcL MILLENNIUM Hemoglobin 14.0 11.2 - 15.7 CERNER gm/dL MILLENNIUM Hematocrit 41.8 34.0 - 45.0 CERNER % MILLENNIUM MCV 88.9 79.0 - 94.0 CERNER fL MILLENNIUM MCH 29.8 26.6 - 32.2 CERNER pg MILLENNIUM MCHC 33.5 32.0 - 36.5 CERNER gm/dL MILLENNIUM Platelets 270 145 - 370 CERNER x10(3)/mcL MILLENNIUM RDWSD 41.1 35.0 - 46.0 CERNER fL MILLENNIUM RDWCV 12.7 10.9 - 14.4 CERNER % MILLENNIUM MPV 9.1 9.0 - 12.0 CERNER fL MILLENNIUM Specimen Anatomical Collection Method Collection Time Receive d Time (Source) Location / / Volume Laterality Blood specimen 08/12/2010 5:54 AM 011 6:05 (specimen) EST AM EST George Harrington MD HEMATOLOGY ORDERABLES Performing Organization Address City/State/ZIP [place] [address] [facility] MILLENNIUM (ABNORMAL) COMPREHENSIVE METABOLIC PANEL (NON-FASTING) (08/12/2010 5:54 AM EST) athologist Signature Glucose Lvl 110 60 - 199 CERNER mg/dL MILLENNIUM Comment: Diabetes: >=200 mg/dL plus symp toms BUN 21 (H) 8 - 18 mg/dL CERNER MILLENNIUM Creatinine 0.76 0.70 - 1.20 mg/dL CERNER MILL ENNIUM Sodium 142 135 - 145 mmol/L CERNER ROCHELLE NIUM Potassium 4.7 3.5 - 5.0 mmol/L CERNER ROCHELLE NIUM Comment: Please note: ??Patients with WBC >100,00 0 may have falsely elevated Potassium levels. ??For accurate Potassium quantif ication in these patients send serum separator tube (gold top) for subsequent determinations. ??Contact the Clinical Chemistry Laboratory if there are any qu estions. Chloride 103 98 - 107 mmol/L CERNER MILLENN IUM CO2 30 22 - 31 mmol/L CERNER MILLENNI UM Anion Gap 9 5 - 15 mmol/L CERNER MILLENNIU M Calcium 10.2 8.5 - 10.5 mg/dL CERNER ROCHELLE NIUM Total Protein 7.8 6.4 - 8.3 gm/dL CERNER MIL LENNIUM Albumin 4.8 3.2 - 5.2 gm/dL CERNER MILLENN IUM AST 33 (H) 0 - 30 unit/L CERNER MILLENNIU M ALT 46 (H) 0 - 30 unit/L CERNER MILLENNIU M Alk Phos 78 40 - 104 unit/L CERNER MILLENN IUM Total Bilirubin 0.3 0.2 - 1.3 mg/dL CERNER M ILLENNIUM Bili, Direct 0.1 0.0 - 0.3 mg/dL CERNER MILL ENNIUM [...] Location / / Volume Laterality Blood specimen 08/12/2010 5:54 AM 011 6:05 (specimen) EST AM EST George Harrington MD CHEMISTRY ORDERABLES Performing Organization Address City/State/ZIP Code Phon e Number [address] [facility] documented in this encounter Visit Diagnoses Not on filedocumented in this encounter Active and Recently Administered Medications Care Teams Dump Grader Relationship Specialty Start Date End Date Michela Stevenson APRN PCP - General 04/29/10 06/07/16 documented as of this encounter
--- OUTSIDE RECORDS SUMMARY | 2022-05-06 08:23 | XMS_ITS | Encounter Summary ---
:1960 Author Organization [facility] Address [facility] [place] [address] Care Team Providers Name Role Phone Michela Stevenson CAR[place] Primary Care Provider Encounter Details Date Type Department Care Team Description 03/25/2010 Orders Only Lab [address], MD [facility] Sully roberts [place] [address] [place] [address] [phone] (Wo rk) Social History Tobacco Use Types Packs/Day Years Used Date Smoking Tobacco: Never Assessed Sex Assigned at Date Recorded Not on file documented as of this encounter Plan of Treatment Not on filedocumented as of this encounter Procedures Procedure Name Priority Date/Time Associated Comments Diagnosis DIFFERENTIAL, STAT 03/25/2010 7:46 AM Results for this AUTOMATED EDT procedure are i n the results section. CREATININE STAT 03/25/2010 7:46 AM Results f or this EDT procedure are i n the results section. APTT STAT 03/25/2010 7:46 AM Results f or this EDT procedure are i n the results section. PROTHROMBIN TIME STAT 03/25/2010 7:46 AM Resul ts for this EDT procedure are i n the results section. CBC (WITH DIFF) STAT 03/25/2010 7:46 AM Result s for this EDT procedure are i n the results section. BUN STAT 03/25/2010 7:46 AM Results f or this EDT procedure are i n the results section. documented in this encounter Results CREATININE, SERUM (03/25/2010 7:46 AM EDT) athologist Signature Creatinine 0.78 0.70 - CERNER 1.20 mg/dL MILLENNIUM Estimated GFR >60 >=60 CERNER [facility] Comment: The National Kidney Disease Education Pr [...] Location / / Volume Laterality Blood specimen 03/25/2010 7:46 AM 010 8:06 (specimen) EDT AM EDT Richardson Craig MD CHEMISTRY ORDERABLES Performing Organization Address City/State/ZIP [place] [address] CERNER MILLENNIUM BUN (03/25/2010 7:46 AM EDT) P athologist Signature BUN 15 8 - 18 CERNER mg/dL MILLENNIUM Specimen Anatomical Collection Method Collection Time Receive d Time (Source) Location / / Volume Laterality Blood specimen 03/25/2010 7:46 AM 010 8:06 (specimen) EDT AM EDT Richardson Craig MD CHEMISTRY ORDERABLES Performing Organization Address [facility] [place] [address] CERNER MILLENNIUM APTT (03/25/2010 7:46 AM EDT) athologist Signature PTT 26 25 - 37 sec CERNER MILLENNIUM Comment: Recommended therapeutic PTT range for fu ll dose unfractionated heparin is 80-114 seconds. Specimen Anatomical Collection Method Collection Time Receive d Time (Source) Location / / Volume Laterality Blood specimen 03/25/2010 7:46 AM 010 8:06 (specimen) EDT AM EDT Richardson Craig MD HEMATOLOGY ORDERABLES Performing Organization Address [facility] [place] [address] CERNER MILLENNIUM PROTIME-INR (03/25/2010 7:46 AM EDT) athologist Signature PT 12.4 11.8 - 15.0 CERNER sec MILLENNIUM Comment: [facility] Transfusion Committee Guidelines: I NR less than 2.0, PTT less than OR equal to 43.5 seconds, or Fibrinogen gre ater than or equal to 100 mg/dl indicate adequate procoagulant activity for hemostasis in patients without underlying bleeding disorders. INR 0.9 0.9 - 1.1 [facility] MILLENNIUM Specimen Anatomical Collection Method Collection Time Receive d Time (Source) Location / / Volume Laterality Blood specimen 03/25/2010 7:46 AM 010 8:06 (specimen) EDT AM EDT Richardson Craig MD HEMATOLOGY ORDERABLES Performing Organization Address City/[facility]/ZIP [place] [address] [facility] MILLENNIUM REFLEX LAB-A-DIFF (03/25/2010 7:46 AM EDT) P athologist Signature Neutrophils % 55.7 34.0 - CERNER 71.0 % MILLENNIUM Neutr Abs (ANC) 2.38 1.50 - CERNER 6.30 MILLENNIUM x10(3)/mcL Lymphocytes % 33.4 19.0 - CERNER 53.0 % MILLENNIUM Lymphocytes Abs 1.4 1.0 - 3.6 CERNER x10(3)/mcL MILLENNIUM Monocytes % 7.2 4.0 - 13.0 CERNER % MILLENNIUM Monocyte Abs 0.3 0.2 - 1.0 CERNER x10(3)/mcL MILLENNIUM Eosinophils % 3.3 0.0 - 7.0 CERNER % MILLENNIUM Eosinophils Abs 0.1 0.0 - 0.5 CERNER x10(3)/mcL MILLENNIUM Basophils % 0.2 0.0 - 2.0 CERNER % MILLENNIUM Basophils Abs 0.0 0.0 - 0.2 CERNER x10(3)/mcL MILLENNIUM Immature Gran % 0.20 0.00 - CERNER 0.66 % MILLENNIUM Comment: Immature granulocytes(IG's)percentage an d absolute count will include metamyelocytes, myelocytes, and promyelo cytes. Blood smears from CBC's yielding IG's will be scanned manually for concor dance. If this scan disagrees with the automated IG or if promyelocytes are not ed, a manual differential will be performed. Sisi Gran Abs 0.01 0.00 - 0.05 x10(3)/mcL CER NER MILLENNIUM Specimen Anatomical Collection Method Collection Time Receive d Time (Source) Location / / Volume Laterality Blood specimen 03/25/2010 7:46 AM 010 8:06 (specimen) EDT AM EDT Richardson Craig MD HEMATOLOGY ORDERABLES Performing Organization Address City/State/[place] [address] CERNER MILLENNIUM CBC (03/25/2010 7:46 AM EDT) P athologist Signature WBC 4.3 4.0 - 10.0 CERNER x10(3)/mcL MILLENNIUM RBC 4.47 3.93 - 5.22 CERNER x10(6)/mcL MILLENNIUM Hemoglobin 13.1 11.2 - 15.7 CERNER gm/dL MILLENNIUM Hematocrit 40.5 34.0 - 45.0 CERNER % MILLENNIUM MCV 90.6 79.0 - 94.0 CERNER fL MILLENNIUM MCH 29.3 26.6 - 32.2 CERNER pg MILLENNIUM MCHC 32.3 32.0 - 36.5 CERNER gm/dL MILLENNIUM Platelets 286 145 - 370 CERNER x10(3)/mcL MILLENNIUM RDWSD 40.6 35.0 - 46.0 CERNER fL MILLENNIUM RDWCV 12.3 10.9 - 14.4 CERNER % MILLENNIUM MPV 9.1 9.0 - 12.0 CERNER fL MILLENNIUM Specimen Anatomical Collection Method Collection Time Receive d Time (Source) Location / / Volume Laterality Blood specimen 03/25/2010 7:46 AM 010 8:06 (specimen) EDT AM EDT Richardson Craig MD HEMATOLOGY ORDERABLES Performing Organization Address City/State/ZIP [place] [address] [facility] documented in this encounter Visit Diagnoses Not on filedocumented in this encounter Care Teams Line Manager Relationship Specialty Start Date End Date Michela Stevenson APRN PCP - General 04/29/10 06/07/16 documented as of this encounter
== END 2022-05-06 08:53 | disposition home or self-care (01) ==
PROVIDERS: Emergency Provider Emergency Medicine; PCP Nurse Practitioner
DX: S89.81XA Other specified injuries of right lower leg, initial encounter (principal); X58.XXXA Exposure to other specified factors, initial encounter; Z96.651 Presence of right artificial knee joint
CPT/HCPCS: 73562; 99283

== ENCOUNTER 2022-06-05 17:42 | Outpatient (REF) | payer MEDICARE, MEDICAID, SELFPAY ==
[2022-06-05 17:31] LABS: ALT 29 U/L (14-59); AST 39 U/L (15-37); Albumin 4.2 g/dL (3.4-5.0); Alkaline Phosphatase 84 U/L (46-116); BUN 15 mg/dL (7-18); Bilirubin, Total 0.8 mg/dL (0.2-1.0); CREATININE 0.8 mg/dL (0.55-1.02); Calcium 9.5 mg/dL (8.5-10.1); Calculated LDL 139 mg/dL (<100); Chloride 102 mmol/L (98-107); Cholesterol 226 mg/dL (<200); Estimated GFR 82.74 (mL/min/1.73m2); Glucose 91 mg/dL (74-106); HDL Cholesterol 65 mg/dL (40-60); Potassium 4.4 mmol/L (3.5-5.1); Sodium 138 mmol/L (136-145); TSH (W/Ref FT4) 1.94 uIU/mL (0.36-3.74); Total Protein 7.7 g/dL (6.4-8.2); Triglyceride 111 mg/dL (<150)
== END 2022-06-05 17:43 | disposition home or self-care (01) ==
LOC: NCHCN 17:42
PROVIDERS: PCP Nurse Practitioner Family; Visit Provider Nurse Practitioner Family
DX: R25.2 Cramp and spasm (principal); R79.89 Other specified abnormal findings of blood chemistry; R53.83 Other fatigue
CPT/HCPCS: 80053; 80061; 84443

== ENCOUNTER 2022-06-09 01:29 | Outpatient (CLI) | payer MEDICARE, MEDICAID, SELFPAY ==
--- NOTE | 2022-06-09 | DI.MAMMO_ITS ---
Exam(s) MG MAMMO SCREENING 60 MIN DUR EXAM: MG MAMMO SCREENING 60 MIN DUR CLINICAL HISTORY: PERS HX RT BREAST CANCER Z85.3, SCREENING FOR BREAST CANCER. TECHNIQUE: Bilateral full field digital CC and MLO mammographic images were obtained with 3D tomosyn thesis and utilizing computer aided detection (CAD). COMPARISON: Prior mammograms were reviewed. FINDINGS: Lumpectomy site in the right breast remains stable. Previously described microcalcification group posteriorly in the right breast located 9 cm in from th e nipple on the CC view remains stable. There are no new spiculated masses nor new malignant appearing microcalcification groups. There is no new significant architectural distortion. IMPRESSION: No radiographic evidence of malignancy. Stable benign-appearing findings. Stable appearance of right breast lumpectomy site. BI-RADS Category 2 - Benign Findings Breast Density - Category B - Scattered areas of fibroglandular density Breast density Category C or D implies that the patient has dense breast tissue. Dense breast tissue can make it harder to find cancer on a mammogram. Dense breast tissue is also associated with an incr eased risk of breast cancer. This information about the result of the mammogram report was provided to the patient to raise their awareness. Use this report when you speak with the patient about their risks for breast cancer, which includes their family history. At that time, you may recommend additional screening tests (Ultrasoun d or MRI) as these tests may add significant information. A negative radiographic report should not delay biopsy if a dominant or clinically suspicious mass is present. Up to ten percent of cancers are not identified on mammography. A negative report may reinforce clinical impression. Adenosis and dense breasts may obscure an underlying neoplasm. False positive reports average 6 to 10%. Patient will receive a letter notifying them of these results.
== END 2022-06-09 01:49 ==
LOC: DI 01:30
PROVIDERS: PCP Nurse Practitioner Family; Visit Provider Nurse Practitioner Family
DX: Z12.31 Encounter for screening mammogram for malignant neoplasm of breast (principal); Z85.3 Personal history of malignant neoplasm of breast
CPT/HCPCS: 77063; 77067

== ENCOUNTER 2022-06-29 01:34 | Outpatient (CLI) | payer MEDICARE, MEDICAID, SELFPAY ==
--- NOTE | 2022-06-29 08:30 | DI.CTLCSR_ITS ---
Exam(s) CT CHEST LUNG CANCER SCREEN EXAM: CT CHEST LUNG CANCER SCREEN CLINICAL HISTORY: CIGARETTE SMOKER F17.210 SCREENING FOR LUNG CANCER TECHNIQUE: Imaging Protocol: Axial computed tomography images with coronal and sagittal reformatted images were created and reviewed. Low dose screening protocol. COMPARISON: CT CT CHEST PE CTA from 01/12/2019 FINDINGS: Tracheobronchial tree: No bronchiectasis or mucus plugging.. Mediastinum and Veronica: No dominant adenopathy or fluid collection. Pulmonary parenchyma: No consolidation or dominant measurable mass. Mild emphysematous changes. Mild fibrotic changes. Lung Nodules: A few tiny calcified nodules. Pleura: No effusion. No pneumothorax. Heart: The heart is not dilated. Mild coronary artery calcifications are seen. Aorta: Thoracic aorta non-dilated. Upper abdomen: Status post cholecystectomy. Unremarkable. Bones: Unremarkable for age. Soft Tissues: Unremarkable. IMPRESSION: No suspicious pulmonary nodules. Lung RADS Cat 1 - Negative: No nodules and definitely benign nodules Lung-RADS 1.0 CATEGORIES: Category 0 - Prior chest CT exam(s) being located for comparison. Category 1 - Annual screening in 12 months. No nodules or definitely benign nodules. Category 2 - Annual screening in 12 months. Benign appearance. Nodules with low likelihood of becomin g active cancer. Category 3 - 6-month follow-up. Probably benign. Short-term follow-up suggested. Nodules with low lik elihood of becoming active cancer. Category 4A - 3-month follow-up and CT/PET if >8 mm in size. Suspicious finding. Findings which requi re additional testing. Category 4B - Findings which require additional testing and tissue sampling. Category 4X - Category 3 or 4 nodules with additional features or imaging findings that increases the suspicion of malignancy. Modifier S- Potentially clinically significant findings (non lung cancer) RADIATION DOSE DELIVERED: 73.49mGy.cm Total DLP DATA REPOSITORY: All CT scans at this facility are submitted to the National Radiology Data Registry (NRDR) Dose Index Registry (DIR) with the [employer] ([employer]). RADIATION OPTIMIZATION: All CT scans at this facility use at least one of these dose optimization te chniques: automated exposure control; mA and/or kV adjustment per patient size (includes targeted exa ms where dose is matched to clinical indication); or iterative reconstruction.
== END 2022-06-29 01:54 ==
LOC: DI 01:35
PROVIDERS: PCP Nurse Practitioner Family; Visit Provider Nurse Practitioner Family
DX: Z12.2 Encounter for screening for malignant neoplasm of respiratory organs (principal); F17.210 Nicotine dependence, cigarettes, uncomplicated
CPT/HCPCS: 71271

== ENCOUNTER 2022-08-28 08:42 | Emergency (ER) | payer MEDICARE, MEDICAID, SELFPAY ==
[2022-08-28 08:50] VITALS: BP 146/85; PULSE 81; RESP 18; O2SAT 98
[2022-08-28 09:15] VITALS: RESP 18
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
--- NOTE | 2022-08-28 09:26 | NUR.NOTE ---
Nursing Note: PT in need of follow up next week with [facility] for breast pain, hx of breast cancer. PARISH Alvarez
--- NOTE | 2022-09-01 16:30 | CMACTNOTE_ITS ---
- If Service Date Differs Date of service: 09/01/22 Time of Service: 16:30 Care Management Activity Note Shraddha is seen in the ED for acute breast pain. At the request of ED provider, CM coordinates a referral to [facility] to assist Shraddha in obtaining an appointment for further evaluation and treatment.
== END 2022-08-28 09:49 | disposition home or self-care (01) ==
PROVIDERS: Emergency Provider Emergency Medicine; PCP Nurse Practitioner Family
DX: N64.4 Mastodynia (principal); Z85.3 Personal history of malignant neoplasm of breast
CPT/HCPCS: 99281; 99282

== ENCOUNTER 2022-09-07 01:50 | Outpatient (CLI) | payer MEDICARE, MEDICAID, SELFPAY ==
--- NOTE | 2022-09-07 | DI.US_ITS ---
Exam(s) MG MAMMO DIAGNOSTIC UNI US BREAST RT COMPLETE EXAM: MG MAMMO DIAGNOSTIC UNI-RIGHT AND COMPLETE RIGHT BREAST ULTRASOUND CLINICAL HISTORY: DIAGNOSTIC, RT BREAST PAIN, N64.4, PERSONAL H/O RT BREAST CA,Z85.3. TECHNIQUE: Unilateral RIGHT BREAST CC AND MLO mammographic images were obtained with 3D tomosynthesi s technique and utilizing computer aided detection (CAD). Also performed COMPLETE RIGHT BREAST ULTRASOUND with scanning of all 4 quadrants as well as the retro areolar region and right axilla. COMPARISON: Prior mammograms were reviewed, the most recent being JUNE 2022.. This patient had remote prior right breast lumpectomy for malignancy. She now complains of right [place] ast pain. Denies lumps and denies nipple discharge. FINDINGS: DIAGNOSTIC RIGHT BREAST MAMMOGRAM: There has no significant change appearance and distribution of the fibroglandular tissue in the right breast. Scarring appears unchanged the prior study as does the amount of architectural distortion. There are benign-appearing micro and macro calcifications in the right breast again noted. There are no new malignant-appearing microcalcification groups. COMPLETE RIGHT BREAST ULTRASOUND: No evidence of solid or significant cystic lesions in all 4 quadrants. Scanning of the retroareolar region is negative. Scanning of the right axilla is negative for adenopathy. IMPRESSION: 1. Stable benign-appearing right breast mammographic findings. No radiographic evidence of malignanc y in the right breast. 2. Negative complete right breast ultrasound. Appropriate follow-up is reimaging of the right breast in 3 months if symptoms persist.. The patient was informed of the findings and follow-up recommendations by myself prior to leaving the department today. BI-RADS Category 3 - 6 month - Probably Benign Finding: Recommend follow-up mammography in 3 months Breast Density - Category B - Scattered areas of fibroglandular density Breast density Category C or D implies that the patient has dense breast tissue. Dense breast tissue can make it harder to find cancer on a mammogram. Dense breast tissue is also associated with an incr eased risk of breast cancer. This information about the result of the mammogram report was provided to the patient to raise their awareness. Use this report when you speak with the patient about their risks for breast cancer, which includes their family history. At that time, you may recommend additional screening tests (Ultrasoun d or MRI) as these tests may add significant information. A negative radiographic report should not delay biopsy if a dominant or clinically suspicious mass is present. Up to ten percent of cancers are not identified on mammography. A negative report may reinforce clinical impression. Adenosis and dense breasts may obscure an underlying neoplasm. False positive reports average 6 to 10%. Patient will receive a letter notifying them of these results.
== END 2022-09-07 02:10 ==
LOC: DI 01:50
PROVIDERS: PCP Nurse Practitioner Family; Visit Provider Family Medicine
DX: N64.4 Mastodynia; Z85.3 Personal history of malignant neoplasm of breast; N60.81 Other benign mammary dysplasias of right breast
CPT/HCPCS: 76642; 77061; 77065; G0279

== ENCOUNTER 2022-11-22 07:02 | Emergency (ER) | payer MEDICARE, MEDICAID, SELFPAY ==
[2022-11-22 07:12] VITALS: BP 123/72; PULSE 89; RESP 16; TEMP 36.9; O2SAT 96
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
[2022-11-22 08:31] VITALS: BP 123/72; PULSE 89; RESP 16; TEMP 36.9; O2SAT 96
== END 2022-11-22 08:43 | disposition home or self-care (01) ==
PROVIDERS: Emergency Provider Nurse Practitioner Family; PCP Nurse Practitioner Family
DX: M77.02 Medial epicondylitis, left elbow (principal); M25.512 Pain in left shoulder
CPT/HCPCS: 99283; 99284

== ENCOUNTER 2022-12-07 01:23 | Outpatient (CLI) | payer MEDICARE, MEDICAID, SELFPAY ==
--- NOTE | 2022-12-07 14:36 | DI.MAMMO_ITS ---
Exam(s) MG MAMMO DIAGNOSTIC UNI EXAM: MG MAMMO DIAGNOSTIC UNI CLINICAL HISTORY: RT BREAST PAIN, N64.4, 3 MO F/U TECHNIQUE: Right cc and MLO mammogram images were performed according to the usual protocol includ ing computer analysis with CAD system, tomosynthesis and C-view imaging. COMPARISON: No exams were available for comparison FINDINGS: Patient states the right breast pain has resolved. The right breast is composed of scattered fibroglandular densities, Breast Density category B. No suspicious masses or suspicious microcalcifications are seen. stable benign-appearing cluster of calcifications in the posterior breast scattered coarse, benign calcifications No skin thickening or abnormal axillary lymph nodes are seen. IMPRESSION: BI-RADS Cat 2 - Benign Findings Yearly screening mammography is recommended, due June 2023 Breast Density - Category B, scattered fibroglandular densities. A negative radiographic report should not delay biopsy if a dominant or clinically suspicious mass is present. Up to ten percent of cancers are not identified on mammography. A negative report may reinforce clinical impression. Adenosis and dense breasts may obscure an underlying neoplasm. False positive reports average 6 to 10%. Patient will receive a letter notifying them of these results.
== END 2022-12-07 01:43 ==
LOC: DI 01:24
PROVIDERS: PCP Nurse Practitioner Family; Visit Provider Family Medicine
DX: Z12.31 Encounter for screening mammogram for malignant neoplasm of breast (principal); N64.4 Mastodynia
CPT/HCPCS: 77061; 77065; G0279

== ENCOUNTER 2022-12-22 20:36 | Emergency (ER) | payer MEDICARE, MEDICAID, SELFPAY ==
[2022-12-22 20:40] VITALS: BP 180/106; PULSE 79; RESP 20; TEMP 36.3; O2SAT 96
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
[2022-12-22] MEDS: diphenhydrAMINE 50 MG/ML VIAL 25 MG IVP (21:32)
[2022-12-22] MEDS: Famotidine 20 MG/2 ML VIAL IVP (21:32)
[2022-12-22] MEDS: methylPREDNISolone SUCC 125 MG VIAL IVP (21:33)
[2022-12-22] MEDS: Loratidine 10 MG TAB 20 MG PO (21:33)
[2022-12-22 21:58] VITALS: BP 124/74; RESP 16; O2SAT 98
[2022-12-22] MEDS: Ibuprofen 800 MG TAB PO (22:17)
== END 2022-12-22 22:40 | disposition home or self-care (01) ==
PROVIDERS: Emergency Provider Student in an Organized Health Care Education/Training Program; PCP Nurse Practitioner Family
DX: T63.441A Toxic effect of venom of bees, accidental (unintentional), initial encounter (principal); R22.0 Localized swelling, mass and lump, head; Z85.3 Personal history of malignant neoplasm of breast; Z92.21 Personal history of antineoplastic chemotherapy; Z92.3 Personal history of irradiation; X58.XXXA Exposure to other specified factors, initial encounter
CPT/HCPCS: 96374; 96375; 99284; 99283; J1200; J2930

== ENCOUNTER 2022-12-29 01:59 | Outpatient (CLI) | payer MEDICARE, MEDICAID, SELFPAY ==
--- NOTE | 2022-12-29 13:35 | DI.MRI_ITS ---
Exam(s) MR UPPER JOINT LT WO EXAM: MR UPPER JOINT LT WO CLINICAL HISTORY: LT SHOULDER PAIN, M25.512,WEAKNESS LT ARM,R53.1,H/O ROTATOR CUFF REPAIR, TECHNIQUE: Multiplanar multisequence MRI of the shoulder was performed. FINDINGS: MARROW:There is evidence of interval surgery with 2 fastener device channels in the humeral head now evident. There has also been biceps tenodesis at the proximal humeral diaphysis level. . There als o now multiple small degenerative subarticular cysts in the posterior humeral head, more so than prev ious. ROTATOR CUFF MECHANISM: AC JOINT/ACROMIUM: There has been decompressive widening of the AC joint when compared to the December 24 MRI study. No abnormal fluid at this level. No prominent downgoing osteophytes.. There is no evidence of os acromiale. Supraspinatus: There is attenuation of the supraspinatus tendon we some mild intrasubstance signal ab normality but there does not appear to be a full-thickness tear of this structure. Infraspinatus: There are cystic changes at the musculotendinous junction. Consistent with partial th ickness tearing but there does not appear to be a full-thickness tear of the infraspinatus. Teres Minor: Intact. No evidence of tear nor muscle atrophy. Subscapularis/anterior cuff: There is thickening and signal abnormality within the multipennate inser tional fibers consistent with tendinosis/tendinitis. Small area of partial-thickness tearing BICEPS TENDON: Tenodesis site evident in proximal diaphysis of the humerus. LABRUM: Mild irregularity of superior labrum small tear at its junction with the posterior labrum. B elow this level the posterior labrum is intact.. Irregularity consistent with element of tearing of the anterior labrum. Mild irregularity of the inferior labrum. Inferior glenohumeral ligament is intact. GLENOHUMERAL JOINT: Increased degenerative changes with cartilage loss and small osteophytes. There are degenerative subarticular cysts evident in the osseous glenoid. QUADRILATERAL SPACE: No evidence of mass in the region of the axillary nerve and dorsal circumflex hu meral vessels. Visualized triceps muscle at this level appears unremarkable. IMPRESSION: 1. Compared to the prior MRI scan of December 2018 there has been interval rotator cuff surgery as well a s biceps tenodesis. 2. There is some attenuation of the supraspinatus tendon but without full-thickness tear. Cystic par tial-thickness tearing of the infraspinatus but without full-thickness tear. Also anterior cuff-subs capularis tendinosis/tendinitis with suspected small partial thickness tear. 3. Increasing osteoarthritic degenerative change in the glenohumeral joint as described above. No pr ominent joint effusion or loose intra-articular bodies. 4. Some tearing of the superior labrum at junction with the posterior labrum evident. Also evidence of anterior labral tearing DATA REPOSITORY:
== END 2022-12-29 02:19 ==
LOC: DI 01:59
PROVIDERS: PCP Nurse Practitioner Family; Visit Provider Nurse Practitioner Family
DX: M19.012 Primary osteoarthritis, left shoulder (principal); Z98.890 Other specified postprocedural states; M75.112 Incomplete rotator cuff tear or rupture of left shoulder, not specified as traumatic
CPT/HCPCS: 73221

== ENCOUNTER 2023-05-21 16:33 | Outpatient (REF) | payer MEDICARE, MEDICAID, SELFPAY ==
--- OUTSIDE RECORDS SUMMARY | 2023-05-21 16:35 | XMS_ITS | Continuity of Care Document ---
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
--- OUTSIDE RECORDS SUMMARY | 2023-05-21 16:35 | XMS_ITS | Continuity of Care Document ---
Author Name Unknown Organization [facility] Address [address] [place] [address] Care Team Providers Care Tank Maker Wood Name Role Phone Alberto CALLAWAY, Merlyn Primary Care Physician [phone] Encounter [facility] NBR [id number] Date(s): 01/19/23 - 01/19/23 [facility] [address] [place], [place] [address] Encounter Diagnosis Osteoarthritis of left shoulder(Discharge Diagnosis) - 01/19/23 Discharge Disposition: Home or Self Care Attending Physician: Mason Soto MD, I Referring Physician: Merlyn Dominguez MD Allergies, Adverse Reactions, Alerts Substance Reaction Severity Status codeine Unknown Unknown Active lidocaine Unknown Unknown Active aspirin Unknown Unknown Active cortisone Unknown Unknown Active promethazine Unknown Unknown Active etodolac Unknown Unknown Active meloxicam Unknown Unknown Active Adhesive Bandage Unknown Unknown Active Pet Dander Unknown Unknown Active sulfa drugs Unknown Unknown Active Morphine Sulfate Unknown Unknown Active Toradol Unknown Unknown Active Phenergan Unknown Unknown Active Magnesium Unknown Unknown Active NSAIDs except for advil Unknown Active oxyCODONE Unknown Unknown Active traMADol Unknown Unknown Active Latex Unknown Unknown Active Medications Albuterol (Eqv-ProAir HFA) 90 mcg/inh inhalation aerosol 8 g, 0 Refill(s), INHALE 2 PUFFS BY MOUTH EVERY 4 TO 6 HOURS NEEDED, 0 Refill(s) Start Date: 01/19/23 Status: Ordered amoxicillin 500 mg oral tablet 4 EA, 0 Refill(s), TAKE 4 TABLETS BY MOUTH 1 TIME BEFORE DENTAL WORK, 0 Refill(s) Start Date: 01/19/23 Status: Ordered diphenhydrAMINE 25 mg oral capsule 30 EA, 0 Refill(s), TAKE 1 CAPSULE BY MOUTH THREE TIMES DAILY NEEDED, 0 Refill(s) Start Date: 01/19/23 Status: Ordered loratadine 10 mg oral tablet 90 EA, 0 Refill(s), TAKE 1 TABLET BY MOUTH EVERY DAY, 0 Refill(s) Start Date: 01/19/23 Status: Ordered omeprazole 20 mg oral delayed release capsule 90 EA, 0 Refill(s), TAKE 1 CAPSULE BY MOUTH EVERY DAY, 0 Refill(s) Start Date: 01/19/23 Status: Ordered Problem List Condition Confirmation Course Effective Dates Status H ealth Status Informant Osteoarthritis of left shoulder Confirmed Active Vital Signs Most recent to oldest [Reference Range]: 1 Peripheral Pulse Rate [60-100 bpm] 64 bp m (01/19/23 1:04 PM) Blood Pressure [90-140/60-90 mmHg] 134/7 6mmHg (01/19/23 1:04 PM) Weight 90.26 kg (01/19/23 1:04 PM) Weight Measured (lbs) 198.989 lb (01/19/23 1:04 PM) Height 63 cm (01/19/23 1:04 PM) Height/Length Measured (inches) 24.8 inc h (01/19/23 1:04 PM) BSA Measured 1.26 m2 (01/19/23 1:04 PM) Body Mass Index 227.41 kg/m2 (01/19/23 1:04 PM) Social History Social History Type Response Sex Female Physician Outpatient Note * Charles CALLAWAY, Mason Shields: PERFORM Event Display: Office Clinic Note Physician Authored Date: [id number] DESTIN HE :1960 Age:62 years Sex:Female Visit Date:01/19/2023 Primary Care Physician: Merlyn Dominguez MD Chief Complaint left shoulder pain History of Present Illness Patient is a 62-year-old female??with a long history of problems with the left shoulder.?? She had a??cuff repair??biceps tenodesis??and distal clavicle excision??several years ago, initially she didwell??but says??the pain has now returned.?? She says she has pain with??any attempt to lift??or??reach up overhead, she has pain at night when she sleeps.?? She had an MRI performed which she bringsin for review.?? She is scheduled start therapy but has not yet had her first visit she has had no recent injections although she did have??what sounds like a subacromial injection before her surgerywith Dr. Dhillon. Physical Exam Vitals & Measurements HR:??64??(Peripheral)?? BP:??134/76?? SpO2:??98%?? HT:??63??cm?? WT:??90.26??kg?? BMI:??227.41?? Pain Score:??6?? BSA:??1.26?? Review of studies:??X-rays of the patient's??shoulder reviewed and show??the patient??to have??hardware in position consistent with??a biceps tenodesis.?? It is difficult to read the x-ray view it does appear she has some joint space narrowing. ?? MRI of the left shoulder reviewed??the rotator cuff looks to still be intact,??however there is noted to be small osteophyte and significant??glenohumeral joint space narrowing. ?? Both shoulders are examined. Range of motion of the shoulder is examined in the forward elevation, abduction, external rotation and internal rotation behind the back planes. External rotation is assessed both with the arm in neutral adduction and at 90 degrees of abduction. Similarly internal rotation is performed at 90 degrees of abduction and is compared with the contralateral side. Neer and Hobson impingement signs are examined. Strength is assessed in forward elevation, abduction, externaland internal rotation planes.?Cross-arm adduction test is examined. The shoulder is systematically palpated anteriorlyin the region of the coracoid process, the anterior joint line and bicipital groove. The AC joint is palpated. The greater tuberosity is palpated. The posterior joint line is palpated. Gautam and active compression tests are performed. The supraspinatus and infraspinatus fossa are examined for signs of atrophy. Stability is test using the apprehension, relocation and Jerk Test. ?? Exam left shoulder shows no tenderness to the AC joint,??no tenderness in bicipital groove. ??Patient has 160 degrees of active elevation,??she has mildly positive impingement signs, she has??no worse than 4+ out of 5 strength abduction,??3+ out of 5 strength internal rotation, 4-5 strength external rotation.?? No glenohumeral instability. Procedure After discussing risk and benefits under sterile conditions I injected the left shoulder??with 1 ccof triamcinolone and 7 cc lidocaine,??patient tolerated this without difficulty. Assessment/Plan 1.??Osteoarthritis of left shoulder??M19.012 Status post cuff repair but pain that I think now is coming from??glenohumeral osteoarthritis,??I given the patient an intra-articular injection,??if she does not get relief we potentially could discuss an arthroscopic debridement versus a discussion of arthroplasty. Ordered: Kenalog-40, 40 mg, Intra-articular, Once, First Dose: 01/19/23 13:39:00 EDT, Stop Date: 01/19/23 13:39:00 EDT, Physician Stop, Routine ?? Problem List/Past Medical History Ongoing Morbid obesity Osteoarthritis of left shoulder Historical No qualifying data Medications Albuterol (Eqv-ProAir HFA) 90 mcg/inh inhalation aerosol amoxicillin 500 mg oral tablet diphenhydrAMINE 25 mg oral capsule Kenalog-40, 40 mg, Intra-articular, Once loratadine 10 mg oral tablet omeprazole 20 mg oral delayed release capsule Allergies Adhesive Bandage??(Unknown) Latex??(Unknown) Magnesium??(Unknown) Morphine Sulfate??(Unknown) NSAIDs??(except for advil) Pet Dander??(Unknown) Phenergan??(Unknown) Toradol??(Unknown) aspirin??(Unknown) codeine??(Unknown) cortisone??(Unknown) etodolac??(Unknown) lidocaine??(Unknown) meloxicam??(Unknown) oxyCODONE??(Unknown) promethazine??(Unknown) sulfa drugs??(Unknown) traMADol??(Unknown) Electronically Signed on 01/19/23 01:42 PM Mason Soto MD, I Patient Care team information Care Team Personnel Name: Merlyn Dominguez MD Position: Physician Member Role: Primary Care Physician Address: Address: [address] [place] [address] [place]
[2023-05-21 19:04] LABS: Abs Immature Grans 0.02 10^3/uL (0.0-0.06); Absolute Basophil Count 0.06 10^3/uL (0.0-0.2); Absolute Eosinophil Count 0.14 10^3/uL (0.0-0.7); Absolute Lymphocyte Count 2.98 10^3/uL (1.2-3.4); Absolute Monocyte Count 0.58 10^3/uL (0.1-0.8); Absolute Neutrophil Count 5.06 10^3/uL (1.2-6.7); Basophils % 0.7; Eosinophils % 1.6; HCT 40.6 % (36.0-46.0); HGB 13.9 g/dL (11.2-15.7); Immature Grans % 0.2; Lymphocytes % 33.7; MCH 31.7 pg (27.0-33.0); MCHC 34.2 % (32.0-36.0); MCV 93 fL (80-95); MPV 10.5 fL (8.0-11.0); Monocytes % 6.6; Neutrophils % 57.2; Platelet Count 232 10^3/uL (130-400); RBC 4.39 10^6/uL (3.93-5.22); RDW 12.5 % (11.7-14.6); RDW-SD 42.7 fL; WBC 8.84 10^3/uL (4.4-10.8)
[2023-05-21 19:23] LABS: ALT 35 U/L (14-59); AST 31 U/L (15-37); Albumin 3.8 g/dL (3.4-5.0); Alkaline Phosphatase 70 U/L (46-116); Anion Gap 7.6 mmol/L (3-11); BUN 15 mg/dL (7-18); Bilirubin, Total 0.4 mg/dL (0.2-1.0); CO2 27.4 mmol/L (21.0-32.0); CREATININE 1.1 mg/dL (0.55-1.02); Calcium 9.6 mg/dL (8.5-10.1); Calculated LDL 123 mg/dL (<100); Chloride 102 mmol/L (98-107); Cholesterol 207 mg/dL (<200); Estimated GFR 56.11 (mL/min/1.73m2); Glucose 98 mg/dL (74-106); HDL Cholesterol 61 mg/dL (40-60); Magnesium 1.4 mg/dL (1.8-2.4); Potassium 3.7 mmol/L (3.5-5.1); Sodium 137 mmol/L (136-145); Total Protein 7.4 g/dL (6.4-8.2); Triglyceride 119 mg/dL (<150)
== END 2023-05-21 16:34 | disposition home or self-care (01) ==
LOC: NCHCN 16:33
PROVIDERS: PCP Nurse Practitioner Family; Visit Provider Nurse Practitioner Family
DX: Z00.00 Encounter for general adult medical examination without abnormal findings (principal); R25.2 Cramp and spasm
CPT/HCPCS: 80053; 80061; 83735; 85025

== ENCOUNTER → 2023-05-25 10:31 | Outpatient (CLI) | payer MEDICARE, MEDICAID, SELFPAY ==
--- NOTE | 2023-05-25 | DI.RAD_ITS ---
Exam(s) XR HIP PELVIS ADULT BL EXAM: XR HIP PELVIS ADULT BL CLINICAL HISTORY: M25.551.M25.552 pain in left and right hips. TECHNIQUE: 2D digital imaging was performed. COMPARISON: No exams were available for comparison FINDINGS: 3 views There is no evidence of pelvic nor hip fracture. No obvious degenerative changes in the hips. No gamaliel int space narrowing nor osteophytes evident in either hip. Bone density normal. No osseous lesions. Visualized sacroiliac joints appear unremarkable. IMPRESSION: No significant osseous findings in the pelvis and hips. DATA REPOSITORY: RADIATION DOSE DELIVERED:
== END ==
PROVIDERS: PCP Nurse Practitioner Family; Visit Provider Nurse Practitioner Family
DX: M25.551 Pain in right hip (principal); M25.552 Pain in left hip
CPT/HCPCS: 73521

== ENCOUNTER → 2023-06-14 02:07 | Outpatient (CLI) | payer MEDICARE, MEDICAID, SELFPAY ==
--- NOTE | 2023-06-14 | DI.MAMMO_ITS ---
Exam(s) MG MAMMO SCREENING 60 MIN DUR EXAM: MG MAMMO SCREENING 60 MIN DUR CLINICAL HISTORY: SCREENING FOR BREAST CANCER Z12.39 PERS HX BREAST CANCER TECHNIQUE: Bilateral full field digital CC and MLO mammographic images were obtained with 3D tomosyn thesis and utilizing computer aided detection (CAD). COMPARISON: Available for comparison. FINDINGS: Masses/Architectural Distortion: Status post right lumpectomy. No suspicious masses are seen. No ne w areas of architectural distortion are present. Microcalcifications: No suspicious pleomorphic-type are seen. Skin Thickening/Nipple Retraction: None. IMPRESSION: 1. No significant interval change with no specific features of malignancy noted. 2. Unless there is more urgent need, screening mammography is recommended, as per [employer] guidelines. 3. Findings were discussed with the patient on the date of the examination. BI-RADS Category 2 - Benign Findings Breast Density - Category B - Scattered areas of fibroglandular density Breast density category C or D implies that the patient has dense breast tissue. Dense breast tissue is very common and is not abnormal but dense breast tissue can make it harder to find cancer on a ma mmogram. Also, dense breast tissue may increase their breast cancer risk. This information about the result of the mammogram report was provided to the patient to raise their awareness. Use this report when you speak with the patient about their risks for breast cancer, which includes their family hist ory. At that time, you may recommend for more screening tests (Ultrasound or MRI) as they might be us eful based on their risk. A negative radiographic report should not delay biopsy if a dominant or clinically suspicious mass is present. Up to ten percent of cancers are not identified on mammography. A negative report may reinforce clinical impression. Adenosis and dense breasts may obscure an underlying neoplasm. False positive reports average 6 to 10%. Patient will receive a letter notifying them of these results.
== END ==
PROVIDERS: PCP Nurse Practitioner Family; Visit Provider Nurse Practitioner Family
DX: Z12.31 Encounter for screening mammogram for malignant neoplasm of breast (principal)
CPT/HCPCS: 77063; 77067

== ENCOUNTER → 2023-08-23 13:46 | Outpatient (CLI) | payer MEDICARE, MEDICAID, SELFPAY ==
--- NOTE | 2023-08-23 | DI.RAD_ITS ---
Exam(s) XR ELBOW RT COMPLETE EXAM: XR ELBOW RT COMPLETE CLINICAL HISTORY: RT ELBOW PAIN, M25.521,MEDIAL EPICONDYLE. TECHNIQUE: 2D digital imaging was performed. Three views. COMPARISON: No exams were available for comparison FINDINGS: BONES: No acute fracture is present. No bony destructive lesion is seen. JOINTS: The elbow is normally aligned. No joint effusion is seen. SOFT TISSUE: Normal. IMPRESSION: Unremarkable radiographs of the right elbow. DATA REPOSITORY: RADIATION DOSE DELIVERED:
--- NOTE | 2023-08-23 | DI.RAD_ITS ---
Exam(s) XR CERVICAL SPINE COMP 4-5V EXAM: XR CERVICAL SPINE COMP 4-5V CLINICAL HISTORY: RT SHOULDER PAIN, M25.511. TECHNIQUE: 2D digital imaging was performed. Five views were performed. COMPARISON: CT CERVICAL SPINE WITHOUT CONTRA from 04/05/2015 FINDINGS: BONES: No fracture or destructive lesion. Vertebral bodies are unremarkable. DISKS: There is mild narrowing of the C5-6 disc space. There are small endplate osteophytes. There is moderate narrowing of the C6-7 disc space, also with endplate osteophytes. Bilateral neural dereck inal narrowing is present at these levels. The remaining intervertebral disc spaces are maintained. ALIGNMENT: Cervical spinal alignment is within normal limits. The odontoid and atlantoaxial articulat ions are normal. SOFT TISSUE: Normal. The lung apices are clear. IMPRESSION: Degenerative disc changes at C5-6 and C6-7 causing neural foraminal narrowing. DATA REPOSITORY: RADIATION DOSE DELIVERED:
== END ==
PROVIDERS: PCP Nurse Practitioner Family; Visit Provider Student in an Organized Health Care Education/Training Program
DX: M25.511 Pain in right shoulder (principal)
CPT/HCPCS: 72050; 73080

== ENCOUNTER 2023-09-07 14:17 | Outpatient (CLI) | payer MEDICARE, MEDICAID, SELFPAY ==
--- NOTE | 2023-09-07 08:15 | DI.RAD_ITS ---
Exam(s) XR SHOULDER RT COMPLETE 2+V EXAM: XR SHOULDER RT COMPLETE 2+V CLINICAL HISTORY: RIGHT SHOULDER PAIN. TECHNIQUE: 2D digital imaging was performed. COMPARISON: CR XR shoulder RT complete 2+V from 11/17/2018 FINDINGS: Two views No evidence of fracture dislocation nor abnormal soft tissue calcifications. Subacromial space is no t diminished. There are minimal if any significant degenerative changes in the glenohumeral joint. Mild degenerative changes in the AC joint. No significant osseous lesions. Bone density is age-appr opriate. IMPRESSION: No acute osseous findings in the right shoulder. No significant change compared to 2019. DATA REPOSITORY: RADIATION DOSE DELIVERED:
== END 2023-09-07 14:18 | disposition home or self-care (01) ==
LOC: DIORS 14:17
PROVIDERS: PCP Nurse Practitioner Family; Referring Provider Nurse Practitioner Family; Visit Provider Student in an Organized Health Care Education/Training Program
DX: Z98.890 Other specified postprocedural states (principal); M75.101 Unspecified rotator cuff tear or rupture of right shoulder, not specified as traumatic
CPT/HCPCS: 99214; 73030

== ENCOUNTER 2023-10-18 09:46 | Emergency (ER) | payer MEDICARE, MEDICAID, SELFPAY ==
[2023-10-18 09:56] VITALS: BP 141/69; PULSE 96; RESP 18; TEMP 36.9; O2SAT 98
[2023-10-18] MEDS: Ketorolac 10 MG TAB PO (11:07)
[2023-10-18] MEDS: Acetaminophen 500 MG TAB 1000 MG PO (11:08)
--- NOTE | 2023-10-18 11:41 | DI.RAD_ITS ---
Exam(s) XR SACRUM COCCYX EXAM: XR SACRUM COCCYX CLINICAL HISTORY: TAILBONE PAIN. TECHNIQUE: 2D digital imaging was performed. Three images were obtained. COMPARISON: No exams were available for comparison FINDINGS: BONES: No acute fracture is present. No bony destructive lesion is seen. JOINTS: The sacroiliac joints are well maintained. SOFT TISSUE: Normal. IMPRESSION: No acute abnormality. DATA REPOSITORY: RADIATION DOSE DELIVERED:
[2023-10-18 12:16] VITALS: BP 131/87; PULSE 82; RESP 15; O2SAT 96
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
== END 2023-10-18 12:18 | disposition home or self-care (01) ==
PROVIDERS: Emergency Provider Emergency Medicine; PCP Nurse Practitioner Family
DX: M53.3 Sacrococcygeal disorders, not elsewhere classified (principal); W19.XXXA Unspecified fall, initial encounter
CPT/HCPCS: 99283; 72220

== ENCOUNTER 2024-04-11 15:34 | Outpatient (REF) | payer MEDICARE, MEDICAID, SELFPAY ==
[2024-04-11 19:54] LABS: Abs Immature Grans 0.03 10^3/uL (0.0-0.06); Absolute Basophil Count 0.04 10^3/uL (0.0-0.2); Absolute Eosinophil Count 0.12 10^3/uL (0.0-0.7); Absolute Lymphocyte Count 2.98 10^3/uL (1.2-3.4); Absolute Monocyte Count 0.49 10^3/uL (0.1-0.8); Absolute Neutrophil Count 3.74 10^3/uL (1.2-6.7); Basophils % 0.5 %; Eosinophils % 1.6 %; HCT 42.1 % (36.0-46.0); HGB 13.9 g/dL (11.2-15.7); Immature Grans % 0.4 %; Lymphocytes % 40.3 %; MCH 32.2 pg (27.0-33.0); MCV 98 fL (80-95); MPV 10.3 fL (8.0-11.0); Monocytes % 6.6 %; Neutrophils % 50.6 %; Platelet Count 250 10^3/uL (130-400); RBC 4.32 10^6/uL (3.93-5.22); RDW-SD 46.4 fL
[2024-04-11 20:17] LABS: ALT 35 U/L (14-59); AST 35 U/L (15-37); Albumin 3.9 g/dL (3.4-5.0); Alkaline Phosphatase 71 U/L (46-116); Anion Gap 11.2 mmol/L (3-11); BUN 11 mg/dL (7-18); Bilirubin, Total 0.54 mg/dL (0.2-1.0); CO2 28.8 mmol/L (21.0-32.0); Chloride 102 mmol/L (98-107); Estimated GFR 62.52 (mL/min/1.73m2); Glucose 94 mg/dL (74-106); Magnesium 1.8 mg/dL (1.8-2.4); Potassium 4.2 mmol/L (3.5-5.1); Sodium 142 mmol/L (136-145); Total Protein 7.8 g/dL (6.4-8.2)
== END 2024-04-11 15:35 | disposition home or self-care (01) ==
LOC: NCHCN 15:34
PROVIDERS: Visit Provider Nurse Practitioner Family
DX: K76.0 Fatty (change of) liver, not elsewhere classified (principal)
CPT/HCPCS: 80053; 83735; 85025

== ENCOUNTER 2024-06-12 02:48 | Outpatient (CLI) | payer MEDICARE, MEDICAID, SELFPAY ==
--- NOTE | 2024-06-12 12:38 | DI.CTLCSR_ITS ---
Exam(s) CT CHEST LUNG CANCER SCREEN EXAM: CT CHEST LUNG CANCER SCREEN CLINICAL HISTORY: NICOTINE DEPENDENCE F17.210 TECHNIQUE: Imaging Protocol: Axial computed tomography images with coronal and sagittal reformatted images were created and reviewed. Lung Computer Aided Detection (CAD) was utilized. COMPARISON: CT CT CHEST LUNG CANCER SCREEN from 06/29/2022 FINDINGS: Tracheobronchial tree: Patent where visualized. No bronchiectasis. Pulmonary parenchyma: No consolidation or dominant measurable mass. Mild pulmonary fibrosis is seen p eripherally. Lung Nodules: None. Mediastinum and Veronica: No dominant adenopathy or fluid collection. The esophagus is unremarkable. Thyroid gland: Unremarkable. Lymph nodes: Unremarkable. Pleura: No effusion or pneumothorax. Heart: The heart is not dilated. Three vessel coronary artery calcification is present. No pericardi al effusion. Aorta: Thoracic aorta non-dilated.Atherosclerotic calcification is present. Upper abdomen: Status post cholecystectomy. Soft Tissues: Unremarkable. Bones: Within normal limits. IMPRESSION: No suspicious pulmonary nodules. Lung RADS Cat 1 - Negative: No nodules and definitely benign nodules Lung-RADS 1.0 CATEGORIES: Category 0 - Prior chest CT exam(s) being located for comparison. Category 1 - Annual screening in 12 months. No nodules or definitely benign nodules. Category 2 - Annual screening in 12 months. Benign appearance. Nodules with low likelihood of becomin g active cancer. Category 3 - 6-month follow-up. Probably benign. Short-term follow-up suggested. Nodules with low lik elihood of becoming active cancer. Category 4A - 3-month follow-up and CT/PET if >8 mm in size. Suspicious finding. Findings which requi re additional testing. Category 4B - Findings which require additional testing and tissue sampling. Suspicious finding. Category 4X - Category 3 or 4 nodules with additional features or imaging findings that increases the suspicion of malignancy. Modifier S- Potentially clinically significant finding. (Non lung cancer) RADIATION DOSE DELIVERED: 39.92mGy.cm Total DLP 39.92mGy.cmTotal DLP DATA REPOSITORY: All CT scans at this facility are submitted to the National Radiology Data Registry (NRDR) Dose Index Registry (DIR) with the [employer] ([employer]). RADIATION OPTIMIZATION: All CT scans at this facility use at least one of these dose optimization te chniques: automated exposure control; mA and/or kV adjustment per patient size (includes targeted exa ms where dose is matched to clinical indication); or iterative reconstruction.
== END 2024-06-12 03:08 ==
PROVIDERS: PCP Nurse Practitioner Family; Visit Provider Nurse Practitioner Family
DX: Z12.2 Encounter for screening for malignant neoplasm of respiratory organs (principal); F17.210 Nicotine dependence, cigarettes, uncomplicated
CPT/HCPCS: 71271

== ENCOUNTER 2024-07-17 15:00 | Emergency (ER) | payer MEDICARE, MEDICAID, SELFPAY ==
[2024-07-17 15:36] VITALS: BP 155/78; PULSE 91; RESP 16; TEMP 36.8; O2SAT 93
--- NOTE | 2024-07-17 15:49 | DI.RAD_ITS ---
Exam(s) XR WRIST LT COMPLETE EXAM: XR WRIST LT COMPLETE CLINICAL HISTORY: left wrist pain post injury. TECHNIQUE: 2D digital imaging was performed. Three views. COMPARISON: No exams were available for comparison FINDINGS: BONES: No acute fracture is present. No bony destructive lesion is seen. JOINTS: The carpal bones are normally aligned. SOFT TISSUE: Normal. IMPRESSION: Unremarkable radiographs of the left wrist. DATA REPOSITORY: RADIATION DOSE DELIVERED:
[2024-07-17 16:51] VITALS: BP 152/82; PULSE 85; RESP 18; O2SAT 96
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
== END 2024-07-17 16:53 | disposition home or self-care (01) ==
LOC: ER 16:50
PROVIDERS: Emergency Provider Physician Assistant; PCP Nurse Practitioner Family
DX: S69.82XA Other specified injuries of left wrist, hand and finger(s), initial encounter (principal); F17.210 Nicotine dependence, cigarettes, uncomplicated; Z86.711 Personal history of pulmonary embolism; W19.XXXA Unspecified fall, initial encounter
CPT/HCPCS: 99283; 73110

== ENCOUNTER 2024-09-25 01:49 | Outpatient (CLI) | payer MEDICARE, MEDICAID, SELFPAY ==
--- NOTE | 2024-09-25 11:24 | DI.MAMMO_ITS ---
Exam(s) MG MAMMO SCREENING 60 MIN DUR EXAM: MG MAMMO SCREENING 60 MIN DUR CLINICAL HISTORY: Screening, Z12.31; personal h/o breast cancer TECHNIQUE: Bilateral full field digital CC and MLO mammographic images were obtained with 3D tomosyn thesis and utilizing computer aided detection (CAD). COMPARISON: Available for comparison. FINDINGS: Masses/Architectural Distortion: No suspicious masses or areas of architectural distortion are presen t. The patient is still status post right lumpectomy. Microcalcifications: No suspicious pleomorphic-type are seen. Skin Thickening/Nipple Retraction: None. IMPRESSION: 1. No significant interval change with no specific features of malignancy noted. 2. Unless there is more urgent need, screening mammography is recommended, as per [employer] guidelines. 3. Findings were discussed with the patient on the date of the examination. BI-RADS Category 2 - Benign Findings Breast Density - Category B - Scattered areas of fibroglandular density Breast density category C or D implies that the patient has dense breast tissue. Dense breast tissue is very common and is not abnormal but dense breast tissue can make it harder to find cancer on a ma mmogram. Also, dense breast tissue may increase their breast cancer risk. This information about the result of the mammogram report was provided to the patient to raise their awareness. Use this report when you speak with the patient about their risks for breast cancer, which includes their family hist ory. At that time, you may recommend for more screening tests (Ultrasound or MRI) as they might be us eful based on their risk. A negative radiographic report should not delay biopsy if a dominant or clinically suspicious mass is present. Up to ten percent of cancers are not identified on mammography. A negative report may reinforce clinical impression. Adenosis and dense breasts may obscure an underlying neoplasm. False positive reports average 6 to 10%. Patient will receive a letter notifying them of these results.
== END 2024-09-25 02:09 ==
LOC: DI 01:49
PROVIDERS: PCP Nurse Practitioner Family; Visit Provider Nurse Practitioner Family
DX: Z12.31 Encounter for screening mammogram for malignant neoplasm of breast (principal); R92.323 Mammographic fibroglandular density, bilateral breasts; D24.1 Benign neoplasm of right breast
CPT/HCPCS: 77063; 77067

== ENCOUNTER 2024-10-16 14:54 | Emergency (ER) | payer MEDICARE, MEDICAID, SELFPAY ==
[2024-10-16 14:56] VITALS: BP 139/79; PULSE 100; RESP 18; TEMP 36.6; O2SAT 98
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
--- NOTE | 2024-10-16 15:58 | DI.RAD_ITS ---
Exam(s) XR LUMBAR SPINE COMPLETE EXAM: XR LUMBAR SPINE COMPLETE CLINICAL HISTORY: right sided hip and lower back pain. TECHNIQUE: 2D digital imaging was performed. COMPARISON: MR MR lumbar spine wo from 02/22/2018 FINDINGS: Five views No evidence of acute or chronic compression fractures. There is degenerative anterolisthesis of L4 upon L5 with approximately 1 cm anterior slippage of L4 u madeline L5 due to facet arthropathy. This was also evident on MRI scan of 2018. There is mild joint spa ce narrowing at this level. There is moderate narrowing of the right-side of the disc space at the L3-4 level, similar to sofia s study of 2018. There is also some milder narrowing of the right-side of the disc space at L2-3 lev el again noted. These findings result in mild scoliosis convex left, similar to 2018. There is significant facet arthropathy evident at the lower 3 levels. Sacroiliac joints appear age-a ppropriate. No significant osseous lesions IMPRESSION: Degenerative anterolisthesis L4 upon L5 and other findings as above, all unchanged from MRI images of February 2018. DATA REPOSITORY: RADIATION DOSE DELIVERED:
--- NOTE | 2024-10-16 15:58 | DI.RAD_ITS ---
Exam(s) XR HIP RT COMPLETE AP PELVIS EXAM: XR HIP RT COMPLETE AP PELVIS CLINICAL HISTORY: right sided hip and lower back pain. TECHNIQUE: 2D digital imaging was performed. COMPARISON: No exams were available for comparison FINDINGS: Two views No evidence of pelvic nor hip fracture. No hip joint space narrowing. Additional frog-lateral view the right hip appears unremarkable. Bone density normal. No osseous lesions. Sacroiliac joints appear unremarkable. IMPRESSION: No significant osseous findings in the pelvis and hips. DATA REPOSITORY: RADIATION DOSE DELIVERED:
[2024-10-16 16:07] VITALS: BP 121/70; PULSE 91; RESP 18; O2SAT 98
== END 2024-10-16 16:29 | disposition home or self-care (01) ==
LOC: ER 16:31
PROVIDERS: Emergency Provider Emergency Medicine; PCP Nurse Practitioner Family
DX: M25.551 Pain in right hip (principal); M54.50 Low back pain, unspecified
CPT/HCPCS: 99283; 99284; 72110; 73502

== ENCOUNTER 2024-12-21 00:58 | Outpatient (CLI) | payer MEDICARE, MEDICAID, SELFPAY ==
--- NOTE | 2024-12-21 | DI.RAD_ITS ---
Exam(s) XR LUMBAR SPINE COMP W FLEX/EX EXAM: XR LUMBAR SPINE COMP W FLEX/EX CLINICAL HISTORY: RT SIDED SCIATICA,? STABILITY OF SPONDYLOLISTHESIS. TECHNIQUE: 2D digital imaging was performed of the lumbar spine. Eight images were obtained. AP, lateral, right oblique, flexion, extension, left oblique and L5-S1 spot views were obtained. COMPARISON: CR XR LUMBAR SPINE COMPLETE from 10/16/2024 FINDINGS: BONES: No fracture or destructive lesion. Endplate osteophytes are seen at several levels of the lumbar spine. Degenerative changes of the facets are seen in the lower lumbar spine. DISKS: There is disc space narrowing at L3-4 and L4-L5. ALIGNMENT: There is a left convex scoliotic curvature of the lumbar spine. There is grade 1 anterolisthesis of L4 on L5. There is no significant change with flexion or extension. No spondylolysis or spondylolisthesis. SOFT TISSUE: Surgical clips are again seen in the right upper quadrant of the abdomen. Atherosclerotic calcification is present. IMPRESSION: 1. Degenerative changes in the lumbar spine as described. 2. Stable anterolisthesis of L4 on L5 with flexion and extension. DATA REPOSITORY: RADIATION DOSE DELIVERED:
== END 2024-12-21 01:18 ==
PROVIDERS: PCP Physician Assistant; Visit Provider Physician Assistant
DX: M43.16 Spondylolisthesis, lumbar region (principal)
CPT/HCPCS: 72114

== ENCOUNTER 2025-04-18 10:13 | Outpatient (REF) | payer MEDICARE, MEDICAID, SELFPAY ==
[2025-04-18 16:22] LABS: HCT 40.9 % (36.0-46.0); HGB 13.6 g/dL (11.2-15.7); MCH 32.1 pg (27.0-33.0); MCHC 33.3 % (32.0-36.0); MCV 97 fL (80-95); MPV 10.4 fL (8.0-11.0); Platelet Count 256 10^3/uL (130-400); RBC 4.24 10^6/uL (3.93-5.22); RDW 13.1 % (11.7-14.6); RDW-SD 46.1 fL; WBC 7.49 10^3/uL (4.4-10.8)
[2025-04-18 18:10] LABS: ALT 17 U/L (10-49); AST 28 U/L (<34); Albumin 4.6 g/dL (3.4-5.0); Alkaline Phosphatase 75 U/L (46-116); Anion Gap 4.8 mmol/L (3-11); BUN 13 mg/dL (9-23); Bilirubin, Total 0.60 mg/dL (0.2-1.2); CO2 30.2 mmol/L (20.0-31.0); Calcium 9.7 mg/dL (8.3-10.6); Chloride 104 mmol/L (98-107); Cholesterol 222 mg/dL (<200); Glucose 95 mg/dL (74-106); HDL Cholesterol 75 mg/dL (>40); Potassium 4.2 mmol/L (3.5-5.1); Sodium 139 mmol/L (136-145); Total Protein 7.5 g/dL (5.7-8.2)
== END 2025-04-18 10:14 | disposition home or self-care (01) ==
LOC: NCHCN 10:13
PROVIDERS: PCP Physician Assistant; Visit Provider Family Medicine
DX: K76.0 Fatty (change of) liver, not elsewhere classified (principal); Z13.220 Encounter for screening for lipoid disorders
CPT/HCPCS: 80053; 80061; 85027